=== PATIENT | female | born 1965 | race Caucasian/White ===

== ENCOUNTER → 2017-10-30 11:05 | Outpatient (CLI) | payer MEDICAID, SELFPAY ==
[2017-10-30 14:43] LABS: Alanine Aminotransferase 40 U/L (12-78); Albumin Level 4.1 gm/dL (3.4-5.0); Alkaline Phosphatase 81 U/L (46-116); Anion Gap 17.2 mEq/L (5-15); Bilirubin,Total 0.6 mg/dL (0.2-1.0); Blood Urea Nitrogen 11 mg/dL (7-18); Carbon Dioxide 24 mmol/L (21.0-32.0); Chloride 102 mmol/L (98-107); Chol/HDL Ratio 5.7 (1-3.5); Cholesterol 211 mg/dL (140-200); Creatinine,Serum 0.76 mg/dL (0.55-1.02); Estimated Glomerular Filt Rate 80 ml/min (>60); GFR (African American) 97 ML/MIN (>60); Glucose 84 mg/dL (74-106); HDL Cholesterol 37 mg/dL (29-89); LDL Cholesterol 131 mg/dL (0-130); Sodium 139 mmol/L (136-145); Total Protein,Serum 7.2 gm/dL (6.4-8.2); Triglycerides 217 mg/dL (30-200); VLDL Cholesterol 43 mg/dL (0-40)
[2017-10-30 14:54] LABS: Aspartate Amino Transferase 50 U/L (15-37); Potassium 4.2 mmoL/L (3.5-5.1)
== END ==
PROVIDERS: PCP Nurse Practitioner Family; Visit Provider Internal Medicine Cardiovascular Disease
DX: I77.9 Disorder of arteries and arterioles, unspecified; I70.1 Atherosclerosis of renal artery; Z95.810 Presence of automatic (implantable) cardiac defibrillator; I25.10 Atherosclerotic heart disease of native coronary artery without angina pectoris; I11.9 Hypertensive heart disease without heart failure; E78.4 Other hyperlipidemia; I50.20 Unspecified systolic (congestive) heart failure; Z95.5 Presence of coronary angioplasty implant and graft
CPT/HCPCS: 36415; 80048; 80061; 80076

== ENCOUNTER → 2017-11-25 14:41 | Outpatient (CLI) | payer MEDICAID, SELFPAY ==
--- NOTE | 2017-11-25 14:45 | CA_ITS ---
PROCEDURE: 2-D M-mode and color Doppler study INDICATIONS FOR THE TEST: Chest pain COPD Heart Murmur Tobacco SmokingEX Palpitations Fatigue Syncope Edema HypertensionXDiabetes Mellitus Rheumatic Fever SOB MCCOY Obesity HyperlipidemiaX Family History HD Additional History CAD,PAD,ICD EF 25% 03-12-17 PATIENT INFORMATION HEIGHT: 64 WEIGHT:151 GENDER: Female B/P:148/80 2-D/M-MODE INTERPRETATION: 2-D MEASUREMENTS OBSERVED VALUES IN CMS Right Ventricular Dimension (RVDd) 2.7 Interventricular Septum (Thickness)(IVsd) 1.2 Left Ventricular Internal Dimensions(LVIDd) 5.9 Left Ventricular Posterior Wall (Thickness)(LVPWd) .9 Aortic Root 3.1 Aortic Cusp Separation 2.0 Left Atrial Dimensions (LAD) 3.5 2D 1. Left atrium is mildly enlarged, left ventricle is mildly dilated, there is mild concentric left ventricular hypertrophy, visually estimated ejection fraction approximately 40-45%, there is marked hypokinesis involving the inferior, inferobasal and posterobasal wall. 2. The right atrium and right ventricle are normal size and contractility, there is a catheter noted in the right ventricle which is likely an AICD lead. 3. The aortic valve is minimally thickened and fibrosed. 4. The mitral and tricuspid valve leaflets are minimally thickened. 5. The pulmonic valve is poorly visualized. 6. No significant pericardial effusion noted. DOPPLER INTERROGATION: Doppler interrogation of the aortic, mitral and tricuspid valvular presence of mild mitral and tricuspid regurgitation, tricuspid and jet velocity insufficient for calculation of the right ventricular systolic pressure, grade 1 diastolic dysfunction seen without tissue Doppler evidence of raised left atrial pressure. CONCLUSION: 1. Mildly enlarged left atrium, mildly dilated left ventricle, there is mild concentric left ventricular hypertrophy present, visually estimated ejection fraction of 40-45% with segmental wall motion abnormality described above. Grade 1 diastolic dysfunction seen without tissue Doppler evidence of raised left atrial pressure. 2. Mild mitral and tricuspid regurgitation 3. No significant pericardial effusion noted.
== END ==
PROVIDERS: PCP Nurse Practitioner Family; Visit Provider Internal Medicine Cardiovascular Disease
DX: I77.9 Disorder of arteries and arterioles, unspecified (principal); I70.1 Atherosclerosis of renal artery; Z87.891 Personal history of nicotine dependence; Z95.810 Presence of automatic (implantable) cardiac defibrillator; I25.10 Atherosclerotic heart disease of native coronary artery without angina pectoris; I11.9 Hypertensive heart disease without heart failure; E78.4 Other hyperlipidemia; I50.20 Unspecified systolic (congestive) heart failure; Z95.5 Presence of coronary angioplasty implant and graft; F17.200 Nicotine dependence, unspecified, uncomplicated
CPT/HCPCS: 93306

== ENCOUNTER → 2018-03-16 12:39 | Outpatient (CLI) | payer MEDICAID, SELFPAY ==
[2018-03-16 13:53] LABS: Alanine Aminotransferase 36 U/L (12-78); Albumin Level 3.8 gm/dL (3.4-5.0); Alkaline Phosphatase 79 U/L (46-116); Aspartate Amino Transferase 26 U/L (15-37); Bilirubin,Direct 0.2 mg/dL (0.0-0.2); Bilirubin,Indirect 0.3 mg/dL (0.0-0.9); Bilirubin,Total 0.5 mg/dL (0.2-1.0); Chol/HDL Ratio 3.3 (1-3.5); Cholesterol 114 mg/dL (140-200); HDL Cholesterol 35 mg/dL (29-89); LDL Cholesterol 40 mg/dL (0-130); Total Protein,Serum 6.9 gm/dL (6.4-8.2); Triglycerides 194 mg/dL (30-200); VLDL Cholesterol 39 mg/dL (0-40)
== END ==
PROVIDERS: Visit Provider Internal Medicine
DX: I50.20 Unspecified systolic (congestive) heart failure (principal); I11.9 Hypertensive heart disease without heart failure; E78.5 Hyperlipidemia, unspecified
CPT/HCPCS: 36415; 80061; 80076

== ENCOUNTER 2018-03-21 11:42 | Emergency (ER) | payer MEDICAID, SELFPAY ==
[2018-03-21 11:52] VITALS: BP 133/63; PULSE 70; RESP 18; TEMP 36.9; O2SAT 98; BMI 25.5
[2018-03-21 12:02] LABS: Microscopic, Urine URINE MICROSCOPIC (MICROSCOPIC)
[2018-03-21 12:03] LABS: Appearance,Urine SL CLOUDY (Clear); Blood, Urine 1+ (Negative); Color,Urine YELLOW (Yellow); Glucose,Urine (UA) Negative (Negative); Ketones,Urine Negative (Negative); Leukocyte Esterase,Urine Negative (Negative); Nitrate,Urine Negative (Negative); Protein,Urine 1+ (Negative); Specific Gravity, Urine 1.025 (1.005-1.030)
--- NOTE | 2018-03-21 12:06 | XR_ITS ---
XR abdomen min 2V COMPARISON: CT scan the abdomen 07/24/2016 HISTORY: Abdominal pain TECHNIQUE: KUB and upright abdomen FINDINGS: There is scattered gas and stool throughout the colon. There is no significant small bowel gas. There are no abnormal soft tissue shadows. There are no air-fluid levels and there is no free air. IMPRESSION: Essentially nondiagnostic abdomen
--- NOTE | 2018-03-21 12:06 | XR_ITS ---
XR chest 2V Ordering Physician: David Villeda MD Patient Age: 52 years: Female HISTORY: ITS.REASON: cough and body aches TECHNIQUE: PA and lateral chest COMPARISON :Previous chest film 04/16/2017 FINDINGS There is been no significant interval change. The lungs are clear no active disease. Pacemaker overlying left chest with atrial and ventricular leads intact. The heart is normal in size dung and mediastinal structures satisfactory. IMPRESSION: Stable chest. Nothing definitely acute. Pacemaker again noted & unchanged
--- NOTE | 2018-03-21 12:10 | HMH.EDGENADL ---
ED Disposition Clinical Impression: Vomiting, Viral syndrome, Dehydration, Tick bite, CAD (coronary artery disease), History of implantable cardiac defibrillator (ICD), Hypokalemia Disposition: Home, Self-Care Condition on Discharge: Fair Instructions: DI for Diarrhea and Traveler's Diarrhea -- Adult, DI for Diarrhea and Traveler's Diarrhea -- Child, DI for Nausea -- Adult, DI for Nausea -- Child Additional Instructions: 1- zofran prn. 2- gotrade 16 oz q 4 3- observe uop 4-5 a day. 4- tylenol prn bidaches. 5- follow with Janay Ron tomorrow 03/22/18 at 3 PM as scheduled with proir antonio. Prescriptions: Ondansetron [Zofran 4mg ODT] 4 mg PO Q8HP PRN #6 tab.rapdis PRN Reason: Nausea Referrals: Sarah Ron APRN [Primary Care Provider] - - Critical Care Critical Care Time: No Attestation: On 03/21/18, the high probability of a clinically significant, sudden or life threatening deterioration of the following system(s) required my full and direct attention, intervention and personal management. The time I documented below is in addition to time spent performing reported procedures but includes the following listed in this critical care notation. Medical Decision Making - Reed Inquiry Pt receiving controlled substance: No Reed was queried for this patient: No Vital Signs: 03/21/18 11:52 Temperature 98.5 F Temperature Source Oral Pulse Rate [Right Brachial] 70 Respiratory Rate 18 Blood Pressure [Right Arm] 133/63 Blood Pressure Mean [Right Arm] 86 Blood Pressure Source [Right Arm] Automatic Cuff Blood Pressure Position [Right Arm] Sitting 02 Sat by Pulse Oximetry 98 Oxygen Delivery Method Room Air - Lab Data Lab Results 03/21/18 11:55: Urine Color Yellow, Urine Appearance Sl cloudy, Urine pH 6.0, Ur Specific [place] 1.025, Urine Protein 1+, Urine Glucose (UA) Negative, Urine Ketones Negative, Urine Blood 1+, Urine Nitrate Negative, Urine Bilirubin Negative, Urine Urobilinogen 1.0, Ur Leukocyte Esterase Negative, Urine RBC Occasional, Urine WBC 5-10, Ur Squamous Epith Cells 3-5, Urine Bacteria 2+ 03/21/18 12:28: WBC 6.4, RBC 5.04, Hgb 14.4, Hct 43.6, MCV 86.4, MCH 28.5, MCHC 32.9, RDW 13.0, Plt Count 168, MPV 8.3, Neut % (Auto) 70.0, Lymph % (Auto) 23.6, [place] % (Auto) 3.2, Eos % (Auto) 2.3, Baso % (Auto) 0.9, Neut # (Auto) 4.5, Lymph # (Auto) 1.5, [place] # (Auto) 0.2, Eos # (Auto) 0.2, Baso # (Auto) 0.1 03/21/18 12:50: Sodium 133 L, Potassium 3.1 L, Chloride 96 L, Carbon Dioxide 25, Anion Gap 15.1 H, BUN 13, Creatinine 1.28 H, Estimated Creat Clear 55, Estimated GFR 44 L, Est GFR ( Amer) 53 L, Glucose 98, Calcium 8.9, Total Bilirubin 0.8, AST 38 H, ALT 63, Alkaline Phosphatase 136 H, Troponin I < 0.02, Total Protein 8.4 H, Albumin 4.1, Globulin 4.3 H, Albumin/Globulin Ratio 1.0 L, Lipase 161 03/21/18 12:50: Lactic Acid 1.3 Result diagrams: 03/21/18 12:28 03/21/18 12:50 Orders (Tests/Meds): ED MEDICATIONS Discontinued Medications Generic Name Dose Route Start Last Admin Trade Name Freq PRN Reason Stop Dose Admin Famotidine 20 mg 03/21/18 12:09 03/21/18 13:20 Pepcid 20mg/2ml Vial IV 03/21/18 12:10 20 mg ONCE ONE Administration Sodium Chloride 1,000 mls @ 999 mls/hr 03/21/18 12:15 03/21/18 13:20 Sod Chlor 0.9% 1000ml Bag IV 03/21/18 13:15 999 mls/hr .Q1H1M MARIA E Administration Ondansetron HCl 4 mg 03/21/18 12:09 03/21/18 13:20 Zofran 4mg/2ml Vial IV 03/21/18 12:10 4 mg ONCE ONE Administration Potassium Chloride 40 meq 03/21/18 13:37 Klor-Con 20meq Tablet PO 06/25/18 13:38 ONCE ONE ORDERS Category Date Time Status XR abdomen min 2V Stat Exams 03/21/18 12:06 Taken XR chest 2V Stat Exams 03/21/18 12:06 Taken Lyme, IgM, Early Test/Reflex Stat Lab 03/21/18 12:50 Received Blood Culture Stat Micro 03/21/18 12:50 Re
--- NOTE | 2018-03-21 12:14 | ED_ITS ---
ED Disposition Clinical Impression: Vomiting, Viral syndrome, Dehydration, Tick bite, CAD (coronary artery disease) , History of implantable cardiac defibrillator (ICD), Hypokalemia Disposition: Home, Self-Care Condition on Discharge: Fair Instructions: DI for Diarrhea and Traveler's Diarrhea -- Adult, DI for Diarrhea and Traveler's Diarrhea -- Child, DI for Nausea -- Adult, DI for Nausea -- Child Additional Instructions: 1- zofran prn. 2- gotrade 16 oz q 4 3- observe uop 4-5 a day. 4- tylenol prn bidaches. 5- follow with Janay Ron tomorrow 03/22/18 at 3 PM as scheduled with proir antonio. Prescriptions: Ondansetron [Zofran 4mg ODT] 4 mg PO Q8HP PRN #6 tab.rapdis PRN Reason: Nausea Referrals: Sarah Ron APRN [Primary Care Provider] - - Critical Care Critical Care Time: No Attestation: On 03/21/18, the high probability of a clinically significant, sudden or life threatening deterioration of the following system(s) required my full and direct attention, intervention and personal management. The time I documented below is in addition to time spent performing reported procedures but includes the following listed in this critical care notation. Medical Decision Making - Reed Inquiry Pt receiving controlled substance: No Reed was queried for this patient: No Vital Signs: 03/21/18 11:52 Temperature 98.5 F Temperature Source Oral Pulse Rate [Right Brachial] 70 Respiratory Rate 18 Blood Pressure [Right Arm] 133/63 Blood Pressure Mean [Right Arm] 86 Blood Pressure Source [Right Arm] Automatic Cuff Blood Pressure Position [Right Arm] Sitting 02 Sat by Pulse Oximetry 98 Oxygen Delivery Method Room Air - Lab Data Lab Results 03/21/18 11:55: Urine Color Yellow, Urine Appearance Sl cloudy, Urine pH 6.0, Ur Specific [place] 1.025, Urine Protein 1+, Urine Glucose (UA) Negative, Urine Ketones Negative, Urine Blood 1+, Urine Nitrate Negative, Urine Bilirubin Negative, Urine Urobilinogen 1.0, Ur Leukocyte Esterase Negative, Urine RBC Occasional, Urine WBC 5-10, Ur Squamous Epith Cells 3-5, Urine Bacteria 2+ 03/21/18 12:28: WBC 6.4, RBC 5.04, Hgb 14.4, Hct 43.6, MCV 86.4, MCH 28.5, MCHC 32.9, RDW 13.0, Plt Count 168, MPV 8.3, Neut % (Auto) 70.0, Lymph % (Auto) 23.6 , [place] % (Auto) 3.2, Eos % (Auto) 2.3, Baso % (Auto) 0.9, Neut # (Auto) 4.5, Lymph # (Auto) 1.5, [place] # (Auto) 0.2, Eos # (Auto) 0.2, Baso # (Auto) 0.1 03/21/18 12:50: Sodium 133 L, Potassium 3.1 L, Chloride 96 L, Carbon Dioxide 25 , Anion Gap 15.1 H, BUN 13, Creatinine 1.28 H, Estimated Creat Clear 55, Estimated GFR 44 L, Est GFR ( Amer) 53 L, Glucose 98, Calcium 8.9, Total Bilirubin 0.8, AST 38 H, ALT 63, Alkaline Phosphatase 136 H, Troponin I < 0.02, Total Protein 8.4 H, Albumin 4.1, Globulin 4.3 H, Albumin/Globulin Ratio 1.0 L, Lipase 161 03/21/18 12:50: Lactic Acid 1.3 Result diagrams: 03/21/18 12:28 03/21/18 12:50 Orders (Tests/Meds): ED MEDICATIONS Discontinued Medications Generic Name Dose Route Start Last Admin Trade Name Freq PRN Reason Stop Dose Admin Famotidine 20 mg 03/21/18 12:09 03/21/18 13:20 Pepcid 20mg/2ml Vial IV 03/21/18 12:10 20 mg ONCE ONE Administration Sodium Chloride 1,000 mls @ 999 mls/hr 03/21/18 12:15 03/21/18 13:20 Sod Chlor 0.9% 1000ml Bag IV 03/21/18 13:15 999 mls/hr
[2018-03-21 12:27] LABS: Bilirubin,Urine Negative (Negative)
[2018-03-21 12:29] LABS: Bacteria,Urine 2+ /lpf; RBC,Urine Occasional #/hpf (0-3)
[2018-03-21 12:38] LABS: Basophils # 0.1 K/mm3 (0-0.2); Basophils % 0.9 % (0.1-2.0); Eosinophils # 0.2 K/mm3 (0.0-0.4); Eosinophils % 2.3 % (0.1-12.0); Hematocrit 43.6 % (37.0-47.0); Hemoglobin 14.4 g/dL (12.2-16.2); Lymphocytes # 1.5 K/mm3 (0.7-4.5); Lymphocytes % 23.6 K/mm3 (10-50); Mean Corpuscular HGB Conc 32.9 g/dL (31.8-35.4); Mean Corpuscular Hemoglobin 28.5 pg (27.0-31.2); Mean Corpuscular Volume 86.4 fl (81-99); Mean Platelet Volume 8.3 fl (7.4-10.4); Monocytes # 0.2 K/mm3 (0.1-1.0); Monocytes % 3.2 % (1.7-9.3); Neutrophils # 4.5 K/mm3 (1.8-7.8); Platelet Count 168 K/mm3 (142-424); Red Blood Count 5.04 M/mm3 (4.20-5.40); White Blood Count 6.4 K/mm3 (4.8-10.8)
[2018-03-21 13:24] LABS: Lactic Acid 1.3 mmol/L (0.4-2.0)
[2018-03-21 13:29] LABS: Alanine Aminotransferase 63 U/L (12-78); Albumin Level 4.1 gm/dL (3.4-5.0); Alkaline Phosphatase 136 U/L (46-116); Anion Gap 15.1 mEq/L (5-15); Aspartate Amino Transferase 38 U/L (15-37); Bilirubin,Total 0.8 mg/dL (0.2-1.0); Blood Urea Nitrogen 13 mg/dL (7-18); Calcium 8.9 mg/dL (8.5-10.1); Carbon Dioxide 25 mmol/L (21.0-32.0); Chloride 96 mmol/L (98-107); Creatinine Clearance Estimated 55 mL/min (0-300); Creatinine,Serum 1.28 mg/dL (0.55-1.02); Estimated Glomerular Filt Rate 44 ml/min (>60); GFR (African American) 53 ML/MIN (>60); Globulin 4.3 gm/dl (1.3-3.2); Glucose 98 mg/dL (74-106); Lipase 161 u/L (73-393); Potassium 3.1 mmoL/L (3.5-5.1); Sodium 133 mmol/L (136-145); Total Protein,Serum 8.4 gm/dL (6.4-8.2); Troponin I < 0.02 ng/ml (0.00-0.06)
[2018-03-21 15:32] VITALS: BP 127/70; PULSE 82; RESP 20; TEMP 37.9; O2SAT 95
== END 2018-03-21 15:33 | disposition home or self-care (01) ==
PROVIDERS: Emergency Provider Emergency Medicine; PCP Nurse Practitioner Family
DX: B34.9 Viral infection, unspecified (principal); E86.0 Dehydration; E87.6 Hypokalemia; I25.10 Atherosclerotic heart disease of native coronary artery without angina pectoris; W57.XXXA Bitten or stung by nonvenomous insect and other nonvenomous arthropods, initial encounter; E78.5 Hyperlipidemia, unspecified; J44.9 Chronic obstructive pulmonary disease, unspecified; I73.9 Peripheral vascular disease, unspecified; F17.210 Nicotine dependence, cigarettes, uncomplicated
CPT/HCPCS: 71046; 74019; 80053; 81001; 83605; 83690; 84484; 85025; 86618; 87040; 87086; 93005; 96365; 96375; 99283; 99284; J2405

== ENCOUNTER → 2018-07-25 06:21 | Outpatient (CLI) | payer MEDICAID, SELFPAY ==
--- NOTE | 2018-07-25 06:23 | NM_ITS ---
History and Indications: Coronary artery disease, previous IA, status post AICD and pacemaker, hypertension, tobacco use, family history, chest pain and shortness of breath. Procedure: Patient received a 0.4 mg of intravenous Lexiscan, resting heart rate was 80 bpm resting blood pressure 159/111, with Lexiscan maximum heart rate achieved was 90 bpm which is less than 85% of the maximum predicted heart rate and a blood pressure was 185/115. The scan patient complained of shortness of breath and chest pressure requiring intravenous Aminophyllin to reverse symptoms. Electrocardiogram: Resting electrocardiogram showed sinus rhythm intraventricular conduction delay nonspecific ST-T changes, with Lexiscan less than 1.[address] segment depression noted from the baseline EKG the EKG portion of the Lexiscan Myoview is nondiagnostic. Cardiac stress and resting SPECT images: Cardiac stress and rest SPECT images were obtained using technetium 99 Myoview 30.4 mCi at rest and 9.8 mCi at rest gated SPECT further analysis of segmental wall motion and calculation of the ejection fraction also done. Cardiac stress and rest SPECT images show a fixed defect involving the inferior and posterobasal wall, most naun-infarct ischemia. Computer derived ejection fraction is 25%, the left ventricle, there is marked hypokinesis involving the inferior and posterobasal wall. Right ventricle is normal size and contractility. Conclusion: 1. The EKG portion of the Lexiscan Myoview is nondiagnostic. 2. Scintigraphic evidence of myocardial scarring involving the inferior and posterobasal wall, with minimal naun-infarct. Computer derived ejection fraction 25% with multiple segmental wall motion abnormality described above, right ventricle is normal size and contractility. 3. Abnormal Lexiscan Myoview study.
--- NOTE | 2018-07-25 07:16 | HMH.ITSHM ---
Current Home Medications as stated by this patient Ashley Ding or field representative/health education. []METOPROLOL RENEXA REPATHA LOSARTAN NITRO ASA
== END ==
PROVIDERS: PCP Internal Medicine Adolescent Medicine; Visit Provider Internal Medicine
DX: E78.5 Hyperlipidemia, unspecified (principal); I11.9 Hypertensive heart disease without heart failure; I20.9 Angina pectoris, unspecified; I25.10 Atherosclerotic heart disease of native coronary artery without angina pectoris; I50.20 Unspecified systolic (congestive) heart failure; I77.9 Disorder of arteries and arterioles, unspecified; Z95.810 Presence of automatic (implantable) cardiac defibrillator
CPT/HCPCS: 78452; 93017; A9502; J2785

== ENCOUNTER → 2018-08-05 10:05 | Outpatient (CLI) | payer MEDICAID, SELFPAY ==
[2018-08-05 12:39] LABS: Anion Gap 16.2 mEq/L (5-15); Blood Urea Nitrogen 9 mg/dL (7-18); Calcium 9.1 mg/dL (8.5-10.1); Carbon Dioxide 26 mmol/L (21.0-32.0); Chloride 106 mmol/L (98-107); Creatinine,Serum 0.76 mg/dL (0.55-1.02); Estimated Glomerular Filt Rate 80 ml/min (>60); GFR (African American) 96 ML/MIN (>60); Glucose 87 mg/dL (74-106); Potassium 4.2 mmoL/L (3.5-5.1); Sodium 144 mmol/L (136-145)
== END ==
PROVIDERS: PCP Internal Medicine Adolescent Medicine; Visit Provider Internal Medicine Cardiovascular Disease
DX: M79.604 Pain in right leg (principal); T14.8XXA Other injury of unspecified body region, initial encounter; Z98.890 Other specified postprocedural states; E78.5 Hyperlipidemia, unspecified; F17.200 Nicotine dependence, unspecified, uncomplicated; I11.9 Hypertensive heart disease without heart failure; I25.10 Atherosclerotic heart disease of native coronary artery without angina pectoris; I50.20 Unspecified systolic (congestive) heart failure; I70.1 Atherosclerosis of renal artery; I77.9 Disorder of arteries and arterioles, unspecified; Z87.891 Personal history of nicotine dependence; Z95.5 Presence of coronary angioplasty implant and graft; Z95.810 Presence of automatic (implantable) cardiac defibrillator
CPT/HCPCS: 36415; 80048; 93926

== ENCOUNTER → 2018-11-15 07:53 | Outpatient (CLI) | payer MEDICAID, SELFPAY ==
--- NOTE | 2018-11-15 07:55 | AS_ITS ---
Renal Arterial Duplex Indications: 405.91 Unspecified renovascular hypertension. Left renal artery stent (2018) IMPRESSIONS 1. Greater than 60% stenosis involving the right renal artery 2. The left renal artery appears normal. Complete renal arterial duplex. Duplex scan and Doppler flow study including spectral analysis, color and resnedez scale imaging. Height: Height: 162.6cm. Height: 64in. Weight: Weight: 68kg. Weight: 149.7lb. Body mass index: BMI: 25.7kg/m^2. Body surface area: BSA: 1.77m^2. Location: Vascular laboratory. Patient status: Outpatient. Findings: Cyst in the left mid pole cortex. Dimensions: 3cm (L). Tables: Arterial flow: + +--------+--------+---------+ Location V sys V ed Resistive + +--------+--------+---------+ Right renal - proximal 210cm/s 34.6cm/s --------- + +--------+--------+---------+ Right renal - mid 192cm/s 48.2cm/s --------- + +--------+--------+---------+ Right renal - distal 48.3cm/s 18.6cm/s --------- + +--------+--------+---------+ Left renal - proximal 123cm/s 31.8cm/s --------- + +--------+--------+---------+ Left renal - mid 65.5cm/s 20.3cm/s --------- + +--------+--------+---------+ Left renal - distal 79.4cm/s 30.4cm/s --------- + +--------+--------+---------+ Right renal-origin 247cm/s 48.9cm/s 0.80 + +--------+--------+---------+ Left renal -origin 107cm/s 22.9cm/s 0.79 + +--------+--------+---------+ Renal anatomy: + +------+-----+ Left Right + +------+-----+ Long axis 11.2cm 11cm + +------+-----+ Short axis 6.6cm 5.2cm + +------+-----+ Cortical thickness 1.5cm 1.3cm + +------+-----+ Velocity ratios: + +-----+ V sys + +-----+ Right renal/aortic 3.9 + +-----+ Left renal/aortic 1.9 + +-----+ (Report amended ) Electronically signed by: Khnah Cr [id number]
[2018-11-15 10:22] LABS: Anion Gap 14.1 mEq/L (5-15); Blood Urea Nitrogen 12 mg/dL (7-18); Calcium 9.2 mg/dL (8.5-10.1); Carbon Dioxide 28 mmol/L (21.0-32.0); Chloride 106 mmol/L (98-107); Creatinine,Serum 0.98 mg/dL (0.55-1.02); Estimated Glomerular Filt Rate 59 ml/min (>60); GFR (African American) 72 ML/MIN (>60); Glucose 92 mg/dL (74-106); Potassium 4.1 mmoL/L (3.5-5.1); Sodium 144 mmol/L (136-145)
== END ==
PROVIDERS: PCP Internal Medicine Adolescent Medicine; Visit Provider Internal Medicine Cardiovascular Disease
DX: I25.10 Atherosclerotic heart disease of native coronary artery without angina pectoris (principal); I50.20 Unspecified systolic (congestive) heart failure; I70.1 Atherosclerosis of renal artery; I77.9 Disorder of arteries and arterioles, unspecified; E78.5 Hyperlipidemia, unspecified; F17.200 Nicotine dependence, unspecified, uncomplicated; I11.9 Hypertensive heart disease without heart failure; Z87.891 Personal history of nicotine dependence; Z95.5 Presence of coronary angioplasty implant and graft; Z95.810 Presence of automatic (implantable) cardiac defibrillator
CPT/HCPCS: 36415; 80048; 93976

== ENCOUNTER → 2019-06-16 09:20 | Outpatient (CLI) | payer MEDICAID, SELFPAY ==
--- NOTE | 2019-06-16 09:21 | CA_ITS ---
APPROVED REPORT Country Printer: BHAVESH Study Quality: Good Indications: malignant htn Risk Factors Hypertension Surgery/Intervention Renal Artery Stent : Renal Artery Doppler Origin (R) 204.0/70.9 cm/sec Proximal (R) 136.0/50.7 cm/sec Mid (R) 106.0/32.0 cm/sec Distal (R) 117.0/35.7 cm/sec Renal Aorta Ratio (R) 3.80 Segmental A. (R) 35.3/11.1 cm/sec RI: 0.68 Segmental A. Sup (R) 42.9/9.7 cm/sec Segmental A. Mid (R) 36.9/12.1 cm/sec Segmental A. Inf (R) 26.0/11.5 cm/sec Origin (L) 110.0/30.6 cm/sec Proximal (L) 106.0/33.9 cm/sec Mid (L) 113.0/35.1 cm/sec Distal (L) 103.0/29.7 cm/sec Renal Aorta Ratio (L) 2.09 Segmental A. (L) 47.7/15.5 cm/sec RI: 0.67 Segmental A. Sup (L) 51.2/17.8 cm/sec Segmental A. Mid (L) 53.6/18.1 cm/sec Segmental A. Inf (L) 38.2/10.6 cm/sec Renal Measurements Kidney Size (R) 11.2x6.1 cm Cortical Thickness (R) 1.2 cm Kidney Size (L) 9.4x7.5 cm Cortical Thickness (L) 1.4 cm Aortic Doppler Velocity Waveform Sup Thanh Ao 54.0 cm/sec Conclusion Study suggests greater than 60% stenosis involving the right renal artery unchanged from 11/15/18 study. Consider CTA to confirm. The left renal artery appears normal. 3.5 cm cyst seen mid pole of left kidney. Electronically signed by : Khanh Cr MD 06/16/2019 18:26:43
== END ==
PROVIDERS: PCP Nurse Practitioner Family; Visit Provider Internal Medicine Cardiovascular Disease
DX: I11.9 Hypertensive heart disease without heart failure (principal); E78.5 Hyperlipidemia, unspecified; I25.10 Atherosclerotic heart disease of native coronary artery without angina pectoris; I50.20 Unspecified systolic (congestive) heart failure; I70.1 Atherosclerosis of renal artery; Z95.5 Presence of coronary angioplasty implant and graft; Z95.810 Presence of automatic (implantable) cardiac defibrillator
CPT/HCPCS: 93976

== ENCOUNTER → 2019-11-27 11:05 | Outpatient (CLI) | payer OTHER, SELFPAY ==
[2019-11-27 11:36] LABS: Basophils # 0.1 K/mm3 (0-0.2); Basophils % 0.7 % (0.1-2.0); Eosinophils # 0.1 K/mm3 (0.0-0.4); Eosinophils % 1.7 % (0.1-12.0); Hematocrit 45.2 % (37.0-47.0); Lymphocytes # 1.9 K/mm3 (0.7-4.5); Lymphocytes % 25.7 % (10-50); Mean Corpuscular HGB Conc 33.2 g/dL (31.8-35.4); Mean Corpuscular Hemoglobin 29.9 pg (27.0-31.2); Mean Corpuscular Volume 90.3 fl (81-99); Monocytes # 0.4 K/mm3 (0.1-1.0); Monocytes % 5.1 % (1.7-9.3); Neutrophils % 66.7 % (37.0-80.0); Platelet Count 263 K/mm3 (142-424); Red Blood Count 5.01 M/mm3 (4.20-5.40); Red Cell Distribution Width 12.8 % (11.5-17.5); White Blood Count 7.5 K/mm3 (4.8-10.8)
[2019-11-27 12:21] LABS: Blood Urea Nitrogen 12 mg/dl (7-17); Calcium 10.2 mg/dl (8.4-10.2); Carbon Dioxide 27 mmol/L (22.0-30.0); Chloride 101 mmol/L (98-107); Estimated Glomerular Filt Rate 75 ml/min (>60); GFR (African American) 90 ML/MIN (>60); Glucose 84 mg/dl (74-100); Sodium 140 mmol/L (136-145)
[2019-11-27 12:41] LABS: Troponin I < 0.01 ng/ml (0.00-0.034)
[2019-11-28 10:51] LABS: Alanine Aminotransferase 16 U/L (12-78); Alkaline Phosphatase 74 U/L (38-126); Aspartate Amino Transferase 23 U/L (14-36); Bilirubin,Indirect 0.4 mg/dL (0.0-0.9); Bilirubin,Total 0.4 mg/dl (0.2-1.3); Bilirubin,Unconjugated 0.5 mg/dL (0.0-1.1); Cholesterol 226 mg/dl (140-200)
[2019-11-28 10:52] LABS: Albumin Level 4.4 g/dl (3.5-5.0); Chol/HDL Ratio 5.9 (1-3.5); HDL Cholesterol 38 mg/dl (40-60); Total Protein,Serum 7.2 g/dl (6.3-8.2); Triglycerides 421 mg/dl (30-150)
[2019-11-28 11:03] LABS: Direct LDL Cholesterol 124.95 mg/dL (100-129)
== END ==
PROVIDERS: Internal Medicine Cardiovascular Disease; Visit Provider Urology
DX: E78.2 Mixed hyperlipidemia (principal); I10 Essential (primary) hypertension; I11.0 Hypertensive heart disease with heart failure; I25.10 Atherosclerotic heart disease of native coronary artery without angina pectoris; I50.22 Chronic systolic (congestive) heart failure; I70.1 Atherosclerosis of renal artery; I77.9 Disorder of arteries and arterioles, unspecified; Z95.810 Presence of automatic (implantable) cardiac defibrillator; E78.5 Hyperlipidemia, unspecified; I11.9 Hypertensive heart disease without heart failure; I50.20 Unspecified systolic (congestive) heart failure; Z95.5 Presence of coronary angioplasty implant and graft
CPT/HCPCS: 36415; 80048; 80061; 80076; 84484; 85025

== ENCOUNTER → 2019-12-06 07:32 | Outpatient (CLI) | payer OTHER, SELFPAY ==
--- NOTE | 2019-12-06 07:35 | CA_ITS ---
APPROVED REPORT Exam: Pharmacologic Technologist: BRIDGETT KAN, Ht: 5 ft 4 in Wt: 139 lbs BSA: 1.68 m2 HR: 70 bpm BP: 180/108 mmHg Rhythm: Pacemaker Indications: CP, SOA Medical History Medications: Metoprolol,,,,, Asa,,,,, Losartan,,,,, Renexa,,,,, Nitro,,,,, Repatha,,,,, Stress Test Details Test: LEXISCAN Reversal agent Aminophyline 100.0 mg, given intravenously for other. HR Resting HR: 71 bpm Max Heart Rate (APMHR): 166 bpm Max HR Achieved: 95 bpm Target HR (85% APMHR): 141 bpm % of APMHR: 57 Recovery HR: 70 bpm BP Resting BP: 180/108 mmHg Max BP: 205/120 mmHg Recovery BP: 196.0/111.0 mmHg ECG Clinical Reason for Termination: Completed protocol Exercise duration: 04:06 min Highest Stage Achieved: Stress ECG Conclusion Symptoms - SOA, Malaise, hot, flushed,aching especially in legs. Occassional PVC No significant ST-T wave changes. Conclusion: Unremarkable Lexiscan stree. Myoview images reported separately. Test Summary REST 04:37 . . 71 . 180/108 . . Stage 1 01:00 . . 70 . . . . Stage 2 01:00 . . 90 . 203/103 . . Stage 3 01:00 . . 95 . 202/120 . . Stage 4 01:00 . . 91 . 196/122 . . Stage 4 01:06 . . 90 . 196/122 . Stop exercise at 04:06 RECOVERY 01:00 . . 72 . 202/112 . . RECOVERY 02:00 . . 70 . 202/112 . . RECOVERY 03:00 . . 69 . 202/112 . . RECOVERY 04:00 . . 70 . 205/120 . . RECOVERY 05:00 . . 70 . 201/115 . . RECOVERY 06:00 . . 70 . 196/111 . . RECOVERY 06:12 . . 72 . 196/111 . . Electronically signed by : Cristi Cleaning, 12/07/2019 12:03:38
--- NOTE | 2019-12-06 07:35 | NM_ITS ---
APPROVED REPORT Exam: Nuclear Stress Test Indication: Chest pain, HTN, CAD, Hx of [place], Pacemaker, High cholesterol, Tobacco use, Family history Patient Location: Outpatient Stress Tech: Radha Pineda NM Tech:Tracey Hidalgo, ARRT, RT (R)(N) Ht: 5 ft 4 in Wt: 139 lbs Bra Size: 36C HR: 70 bpm BP: 180/108 mmHg BSA: 1.68 m2 BMI: 23.8 History: Chest pain, HTN, CAD, Hx of [place], Pacemaker, High cholesterol, Tobacco use, Family history Procedure: Patient received a 0.4 mg of intravenous Lexiscan, resting heart rate 70 bpm, resting blood pressure 180/108 mmHg, with Lexiscan maximum heart rate achived was 95 bpm which is % of the maximum predicted heart rate and blood pressure was 196/122 mmHg. With Lexiscan, patient denied any complaint of chest pain. Cardiac Stress and Resting SPECT Images: Cardiac Stress and Resting SPECT images were obtained using technetium 99m Myoview 30.5 mCi stress and 10.28 mCi at rest. EF is very low at 18% with global hypokinesia with apical akinesia Fixed defects are present in the anterior and inferior wall towards the apex with a large fixed defect in the inferior wall towards the base of the heart consistent with areas of infarcts No reversible defects Conclusion: EF is very low at 18% with global hypokinesia with apical akinesia Fixed defects are present in the anterior and inferior wall towards the apex with a large fixed defect in the inferior wall towards the base of the heart consistent with areas of infarcts No reversible defects Electronically signed by : Khanh Cr MD 12/06/2019 17:07:08
--- NOTE | 2019-12-06 08:23 | HMH.ITSHM ---
Current Home Medications as stated by this patient Ashley Ding or financial representative. []PANTOPRAZOLE MAGNESIUM HCTZ CLOPIDOGREL CLONIDINE RANOLAZINE ZOFRAN METOPROLOL ISOSORBIDE MONONITRATE
== END ==
PROVIDERS: PCP Physician Assistant; Visit Provider Urology
DX: I11.9 Hypertensive heart disease without heart failure (principal); I25.10 Atherosclerotic heart disease of native coronary artery without angina pectoris; I50.20 Unspecified systolic (congestive) heart failure; I70.1 Atherosclerosis of renal artery; I77.9 Disorder of arteries and arterioles, unspecified; E78.5 Hyperlipidemia, unspecified; Z95.810 Presence of automatic (implantable) cardiac defibrillator
CPT/HCPCS: 78452; 93017; 93306; A9502; J2785

== ENCOUNTER → 2020-01-16 12:23 | Outpatient (CLI) | payer OTHER, SELFPAY ==
[2020-01-16 14:23] LABS: Anion Gap 13.3 mEq/L (5-15); Blood Urea Nitrogen 9 mg/dl (7-17); Carbon Dioxide 26 mmol/L (22.0-30.0); Chloride 104 mmol/L (98-107); Estimated Glomerular Filt Rate 87 ml/min (>60); GFR (African American) 106 ML/MIN (>60); Glucose 88 mg/dl (74-100); Potassium 4.3 mmoL/L (3.5-5.1); Sodium 139 mmol/L (136-145)
== END ==
PROVIDERS: Urology; Visit Provider Nurse Practitioner Family
DX: I20.9 Angina pectoris, unspecified (principal); I50.20 Unspecified systolic (congestive) heart failure; E78.5 Hyperlipidemia, unspecified; F17.200 Nicotine dependence, unspecified, uncomplicated; Z95.810 Presence of automatic (implantable) cardiac defibrillator
CPT/HCPCS: 36415; 80048

== ENCOUNTER → 2020-02-23 14:58 | Outpatient (CLI) | payer OTHER, SELFPAY ==
--- NOTE | 2020-02-23 15:02 | XR_ITS ---
PROCEDURE: XR FOOT RT MIN 3V CLINICAL INDICATION: FOOT INFECTION Ulceration on the tip of the 2nd toe COMPARISON: No exams were available for comparison FINDINGS: No fracture or dislocation. No lytic or blastic change. There is normal mineralization. The joint spaces are well-preserved. No significant degenerative/arthritic changes. No erosive changes evident. Other findings:No soft tissue gas or radiopaque foreign body IMPRESSION: No acute findings. Dictated by: Khanh rC MD 02/23/2020 18:39 Electronically signed by Khanh Cr MD in [place] 02/23/2020 18:39
== END ==
PROVIDERS: PCP Internal Medicine Adolescent Medicine; Visit Provider Internal Medicine Adolescent Medicine
DX: L08.9 Local infection of the skin and subcutaneous tissue, unspecified (principal); M79.671 Pain in right foot
CPT/HCPCS: 73630

== ENCOUNTER → 2020-02-26 09:54 | Outpatient (CLI) | payer OTHER, SELFPAY | PROVIDERS: Visit Provider Podiatrist | DX: L97.512 Non-pressure chronic ulcer of other part of right foot with fat layer exposed (principal) | CPT/HCPCS: 87070; 87077; 87186; 87205 ==

== ENCOUNTER → 2020-02-27 15:39 | Outpatient (CLI) | payer OTHER, SELFPAY ==
[2020-02-27 16:24] LABS: Basophils % 0.6 % (0.1-2.0); Eosinophils # 0.2 K/mm3 (0.0-0.4); Eosinophils % 2.1 % (0.1-12.0); Hematocrit 41.3 % (37.0-47.0); Hemoglobin 14.4 g/dL (12.2-16.2); Lymphocytes # 2.2 K/mm3 (0.7-4.5); Lymphocytes % 29.9 % (10-50); Mean Corpuscular HGB Conc 34.8 g/dL (31.8-35.4); Mean Corpuscular Hemoglobin 30.6 pg (27.0-31.2); Mean Corpuscular Volume 87.9 fl (81-99); Mean Platelet Volume 7.5 fl (7.4-10.4); Monocytes # 0.4 K/mm3 (0.1-1.0); Monocytes % 5.4 % (1.7-9.3); Neutrophils # 4.6 K/mm3 (1.8-7.8); Neutrophils % 62.1 % (37.0-80.0); Platelet Count 255 K/mm3 (142-424); Red Cell Distribution Width 13.2 % (11.5-17.5); White Blood Count 7.4 K/mm3 (4.8-10.8)
[2020-02-27 16:58] LABS: Chloride 105 mmol/L (98-107); Potassium 4.2 mmoL/L (3.5-5.1); Sodium 139 mmol/L (136-145)
[2020-02-27 17:01] LABS: Alanine Aminotransferase 21 U/L (12-78); Albumin Level 4.3 g/dl (3.5-5.0); Albumin/Globulin Ratio 1.5 (1.1-1.8); Alkaline Phosphatase 99 U/L (38-126); Anion Gap 14.2 mEq/L (5-15); Aspartate Amino Transferase 26 U/L (14-36); Bilirubin,Total 0.6 mg/dl (0.2-1.3); Blood Urea Nitrogen 10 mg/dl (7-17); Carbon Dioxide 24 mmol/L (22.0-30.0); Estimated Glomerular Filt Rate 87 ml/min (>60); GFR (African American) 106 ML/MIN (>60); Globulin 2.8 g/dL (1.3-3.2); Total Protein,Serum 7.1 g/dl (6.3-8.2)
[2020-02-27 17:02] LABS: Calcium 9.2 mg/dl (8.4-10.2); Glucose 87 mg/dl (74-100)
[2020-02-27 17:07] LABS: C-Reactive Protein 4.7 mg/L (0-4)
[2020-02-27 19:32] LABS: Erythrocyte Sedimentation Rate 19 mm/hr (0-30)
== END ==
PROVIDERS: Visit Provider Podiatrist
DX: L97.519 Non-pressure chronic ulcer of other part of right foot with unspecified severity (principal)
CPT/HCPCS: 36415; 80053; 85025; 85651; 86140

== ENCOUNTER → 2020-03-04 10:40 | Outpatient (CLI) | payer OTHER, SELFPAY ==
--- NOTE | 2020-03-04 10:49 | US_ITS ---
APPROVED REPORT Exam Type: Lower Extremity Segmental Pressures Intelligence Clerk: Monica Harris RDCS Indications Claudication: PAD Current Smoker CAD Risk Factors Current Smoker Pressures/Indices Right Indices Left Indices Brachial 164.00 mmHg Brachial 154.00 mmHg Low Thigh 132.00 mmHg 0.80 Low Thigh 151.00 mmHg 0.92 Calf 135.00 mmHg 0.82 Calf 146.00 mmHg 0.89 Ankle(PT) 109.00 mmHg 0.66 Ankle(PT) 135.00 mmHg 0.82 Ankle(DP) 83.00 mmHg 0.51 Ankle(DP) 84.00 mmHg 0.51 Digit 31.00 mmHg 0.19 Digit 16.00 mmHg 0.10 Findings R RODOLFO .7 L RODOLFO .8 R TBI .2 L TBI .1 WAVEFORMS NORMAL DIMINISHED PULSES BILATERALLY Conclusion Moderate arterial disease Electronically signed by : Khanh Cr MD 03/04/2020 19:35:34
== END ==
PROVIDERS: PCP Internal Medicine Adolescent Medicine; Visit Provider Internal Medicine Adolescent Medicine
DX: L08.9 Local infection of the skin and subcutaneous tissue, unspecified (principal); L03.115 Cellulitis of right lower limb; L03.116 Cellulitis of left lower limb
CPT/HCPCS: 93923

== ENCOUNTER → 2020-03-18 14:46 | Outpatient (CLI) | payer OTHER, SELFPAY ==
[2020-03-18 15:48] LABS: Alanine Aminotransferase 18 U/L (12-78); Albumin Level 4.2 g/dl (3.5-5.0); Alkaline Phosphatase 83 U/L (38-126); Aspartate Amino Transferase 26 U/L (14-36); Bilirubin,Direct 0.4 mg/dl (0.0-0.4); Bilirubin,Indirect 0.5 mg/dL (0.0-0.9); Bilirubin,Total 0.9 mg/dl (0.2-1.3); Bilirubin,Unconjugated 0.6 mg/dL (0.0-1.1); Cholesterol 198 mg/dl (140-200); Total Protein,Serum 6.9 g/dl (6.3-8.2)
[2020-03-18 15:49] LABS: Triglycerides 422 mg/dl (30-150)
[2020-03-18 16:00] LABS: Direct LDL Cholesterol 92.91 mg/dL (100-129)
[2020-03-18 21:41] LABS: Chol/HDL Ratio 4.5 (1-3.5); HDL Cholesterol 44 mg/dl (40-60)
== END ==
PROVIDERS: Visit Provider Urology
DX: I11.9 Hypertensive heart disease without heart failure (principal); I25.10 Atherosclerotic heart disease of native coronary artery without angina pectoris; I77.9 Disorder of arteries and arterioles, unspecified; I50.20 Unspecified systolic (congestive) heart failure; I70.1 Atherosclerosis of renal artery; Z95.5 Presence of coronary angioplasty implant and graft
CPT/HCPCS: 36415; 80061; 80076

== ENCOUNTER 2020-04-16 08:46 | Day surgery (SDC) | payer OTHER, SELFPAY ==
[2020-04-16] VITALS (18 sets, daily range): BP systolic 119–168; BP diastolic 80–111; PULSE 70; RESP 16; TEMP 36.8; O2SAT 91–100; BMI 25.2
--- NOTE | 2020-04-16 09:00 | IR_ITS ---
APPROVED REPORT Patient Location: Outpatient PROCEDURES Catheter placement in the abdominal aorta Abdominal aortography Repositioning of the catheter in the abdominal aorta Bilateral iliofemoral runoff INDICATION Abnormal ABIs, [place] class III claudication Informed consent was obtained prior to the procedure. COMPLICATIONS none Estimated Blood Loss: less than 10 mls TECHNIQUE 1% lidocaine used anesthetize the right groin the right femoral artery was accessed via the Salinger technique and a 5 [place] sheath was placed in the right femoral artery. The pigtail catheter was advanced and abdominal aortography was performed. The catheter was then repositioned and bilateral iliofemoral runoff was performed. At the end of the procedure the apparatus was removed the patient was transferred to the postop holding area stable condition for sheath removal ANGIOGRAPHIC RESULTS The suprarenal abdominal aorta is normal. The left renal artery is singular and has a stent in the ostial proximal segment which is widely patent free of in-stent restenosis. The right renal artery singular normal. The infrarenal abdominal aorta is mild to moderately atheromatous with diffuse 30% [id number] stenosis. The right common iliac artery has a stent in the ostial segment with a 50% in-stent restenotic lesion. The right internal iliac artery is ostially occluded while the external iliac artery is widely patent. The right common femoral artery is normal. The right profunda femoris artery is normal. The right superficial femoral artery has mid vessel 40 to 50% stenosis which transitions into a large popliteal artery which has a mid vessel 40% stenosis. Distally the posterior tibialis artery is occluded however the anterior tibialis artery and the peroneal artery are patent into the right foot The left common iliac artery has an ostial 30% stenosis while the left internal iliac artery is occluded. The left external iliac artery is widely patent. The left common femoral artery is patent. The left profunda femoris artery is widely patent. The left superficial femoral artery has mid vessel 40 to 50% stenosis. The left popliteal artery is widely patent with mild atheromatous 20% plaque. There appears to be three-vessel runoff below the knee on the left side however due to motion artifact the full angiogram cannot be visualized in the distal two thirds of the left calf IMPRESSION Peripheral artery disease as described above PLAN 1. Medical management 2. Treatment for restless leg syndrome using Requip 1 to 2 mg nightly 3. Risk factor modification Electronically signed by : Cristi Cleaning, 04/16/2020 12:28:43
[2020-04-16 09:34] LABS: Anion Gap 11.7 mEq/L (5-15); Blood Urea Nitrogen 9 mg/dl (7-17); Calcium 9.4 mg/dl (8.4-10.2); Carbon Dioxide 27 mmol/L (22.0-30.0); Chloride 106 mmol/L (98-107); Creatinine Clearance Estimated 85 mL/min (50-200); Estimated Glomerular Filt Rate 75 ml/min (>60); GFR (African American) 90 ML/MIN (>60); Glucose 99 mg/dl (74-100); Potassium 3.7 mmoL/L (3.5-5.1); Sodium 141 mmol/L (136-145)
[2020-04-16 09:39] LABS: Basophils % 0.5 % (0.1-2.0); Eosinophils # 0.1 K/mm3 (0.0-0.4); Hematocrit 41.1 % (37.0-47.0); Hemoglobin 14.2 g/dL (12.2-16.2); Lymphocytes # 2.1 K/mm3 (0.7-4.5); Lymphocytes % 29.1 % (10-50); Mean Corpuscular HGB Conc 34.5 g/dL (31.8-35.4); Mean Corpuscular Hemoglobin 31.5 pg (27.0-31.2); Mean Corpuscular Volume 91.5 fl (81-99); Mean Platelet Volume 7.5 fl (7.4-10.4); Monocytes # 0.3 K/mm3 (0.1-1.0); Monocytes % 4.2 % (1.7-9.3); Neutrophils # 4.6 K/mm3 (1.8-7.8); Neutrophils % 64.2 % (37.0-80.0); Platelet Count 241 K/mm3 (142-424); Red Blood Count 4.49 M/mm3 (4.20-5.40); Red Cell Distribution Width 13.4 % (11.5-17.5); White Blood Count 7.1 K/mm3 (4.8-10.8)
== END 2020-04-16 14:12 | disposition home or self-care (01) ==
LOC: CATHLAB 08:48
PROVIDERS: PCP Internal Medicine Adolescent Medicine; Visit Provider Internal Medicine
DX: I25.118 Atherosclerotic heart disease of native coronary artery with other forms of angina pectoris (principal); I70.203 Unspecified atherosclerosis of native arteries of extremities, bilateral legs; E78.2 Mixed hyperlipidemia; I11.0 Hypertensive heart disease with heart failure; I70.1 Atherosclerosis of renal artery; I77.9 Disorder of arteries and arterioles, unspecified; R06.00 Dyspnea, unspecified; Z95.5 Presence of coronary angioplasty implant and graft; Z95.810 Presence of automatic (implantable) cardiac defibrillator; Z79.82 Long term (current) use of aspirin; G25.81 Restless legs syndrome; I50.22 Chronic systolic (congestive) heart failure; I77.1 Stricture of artery; Z72.0 Tobacco use
CPT/HCPCS: 36247; 75716; 80048; 85025; 99152; C1725; C1769; C1894; J1644; Q9966

== ENCOUNTER → 2020-09-18 10:45 | Outpatient (CLI) | payer OTHER, SELFPAY ==
[2020-09-18 12:13] LABS: Basophils % 0.7 % (0.1-2.0); Eosinophils # 0.1 K/mm3 (0.0-0.4); Eosinophils % 2.8 % (0.1-12.0); Hematocrit 44.9 % (37.0-47.0); Hemoglobin 14.5 g/dL (12.2-16.2); Lymphocytes # 1.5 K/mm3 (0.7-4.5); Lymphocytes % 30.5 % (10-50); Mean Corpuscular HGB Conc 32.2 g/dL (31.8-35.4); Mean Corpuscular Hemoglobin 29.5 pg (27.0-31.2); Mean Corpuscular Volume 91.3 fl (81-99); Mean Platelet Volume 8.3 fl (7.4-10.4); Monocytes # 0.3 K/mm3 (0.1-1.0); Monocytes % 5.9 % (1.7-9.3); Neutrophils % 60.1 % (37.0-80.0); Platelet Count 283 K/mm3 (142-424); Red Blood Count 4.91 M/mm3 (4.20-5.40); Red Cell Distribution Width 13.7 % (11.5-17.5); White Blood Count 4.9 K/mm3 (4.8-10.8)
[2020-09-18 12:39] LABS: Chloride 106 mmol/L (98-107); Potassium 4.2 mmoL/L (3.5-5.1); Sodium 137 mmol/L (136-145)
[2020-09-18 12:42] LABS: Alanine Aminotransferase 19 U/L (12-78); Albumin Level 4.2 g/dl (3.5-5.0); Albumin/Globulin Ratio 1.4 (1.1-1.8); Alkaline Phosphatase 72 U/L (38-126); Anion Gap 12.2 mEq/L (5-15); Aspartate Amino Transferase 25 U/L (14-36); Bilirubin,Total 0.7 mg/dl (0.2-1.3); Blood Urea Nitrogen 11 mg/dl (7-17); Carbon Dioxide 23 mmol/L (22.0-30.0); Estimated Glomerular Filt Rate 74 ml/min (>60); GFR (African American) 90 ML/MIN (>60); Total Protein,Serum 7.2 g/dl (6.3-8.2)
[2020-09-18 12:43] LABS: Calcium 9.6 mg/dl (8.4-10.2); Glucose 104 mg/dl (74-100)
[2020-09-18 12:47] LABS: C-Reactive Protein 1.9 mg/L (0-4)
[2020-09-18 13:52] LABS: Hemoglobin A1C 5.5 % (4.0-6.0)
[2020-09-18 15:11] LABS: Erythrocyte Sedimentation Rate 11 mm/hr (0-30)
== END ==
PROVIDERS: Visit Provider Podiatrist
DX: L97.519 Non-pressure chronic ulcer of other part of right foot with unspecified severity (principal)
CPT/HCPCS: 36415; 80053; 83036; 85025; 85651; 86140

== ENCOUNTER → 2021-08-09 14:01 | Outpatient (CLI) | payer OTHER, SELFPAY ==
--- NOTE | 2021-08-10 09:47 | PC.NURSE ---
PATIENT NOTIFIED OF POSITIVE COVID TEST AT THIS TIME
== END ==
PROVIDERS: PCP Internal Medicine Adolescent Medicine; Visit Provider Nurse Practitioner Family
DX: U07.1 COVID-19 (principal)
CPT/HCPCS: C9803; U0003; U0005

== ENCOUNTER → 2021-08-25 07:40 | Outpatient (CLI) | payer OTHER, SELFPAY ==
--- NOTE | 2021-08-25 07:49 | CA_ITS ---
APPROVED REPORT Covering And Lining Supervisor: Shira Griffiths RVT Study Quality: Good Indications: HTN Risk Factors Hypertension Smoking Surgery/Intervention Renal Artery Stent : LT RENAL STENT Renal Artery Doppler Origin (R) 301.6/ cm/sec Proximal (R) 288.1/ cm/sec Mid (R) 429.8/ cm/sec Distal (R) 142.2/ cm/sec Renal Aorta Ratio (R) 5.18 Segmental A. (R) 39.6/15.6 cm/sec RI: 0.60 Segmental A. Sup (R) 27.6/7.2 cm/sec Segmental A. Mid (R) 39.6/15.6 cm/sec Segmental A. Inf (R) 28.8/12.0 cm/sec Origin (L) 123.5/ cm/sec Proximal (L) 105.5/ cm/sec Mid (L) 167.6/ cm/sec Distal (L) 167.6/ cm/sec Renal Aorta Ratio (L) 2.02 Segmental A. (L) 46.4/11.6 cm/sec RI: 0.75 Segmental A. Sup (L) 33.0/8.0 cm/sec Segmental A. Mid (L) 46.4/11.6 cm/sec Segmental A. Inf (L) 40.1/21.4 cm/sec Renal Measurements Kidney Size (R) 10.6x5.9 cm Cortical Thickness (R) 1.2 cm Kidney Size (L) 12.2x5.6 cm Cortical Thickness (L) 1.6 cm Findings Study suggests greater than 60% stenosis of the right renal artery. Study suggests normal left renal artery. Conclusion Study suggests greater than 60% stenosis of the right renal artery. Study suggests normal left renal artery. 3cm left renal cyst Electronically signed by : Khanh Cr MD 08/25/2021 16:24:55
== END ==
PROVIDERS: PCP Internal Medicine Adolescent Medicine; Visit Provider Nurse Practitioner Family
DX: I10 Essential (primary) hypertension (principal)
CPT/HCPCS: 93976

== ENCOUNTER → 2021-09-01 11:54 | Outpatient (CLI) | payer OTHER, SELFPAY ==
[2021-09-01 12:22] LABS: Basophils # 0.1 K/mm3 (0-0.2); Basophils % 0.7 % (0.1-2.0); Eosinophils # 0.2 K/mm3 (0.0-0.4); Hematocrit 39.7 % (37.0-47.0); Hemoglobin 13.4 g/dL (12.2-16.2); Lymphocytes # 2.3 K/mm3 (0.7-4.5); Lymphocytes % 28.2 % (10-50); Mean Corpuscular HGB Conc 33.7 g/dL (31.8-35.4); Mean Corpuscular Hemoglobin 29.2 pg (27.0-31.2); Mean Corpuscular Volume 86.7 fl (81-99); Mean Platelet Volume 7.8 fl (7.4-10.4); Monocytes # 0.4 K/mm3 (0.1-1.0); Monocytes % 4.8 % (1.7-9.3); Neutrophils # 5.3 K/mm3 (1.8-7.8); Neutrophils % 64.2 % (37.0-80.0); Platelet Count 371 K/mm3 (142-424); Red Blood Count 4.58 M/mm3 (4.20-5.40); White Blood Count 8.3 K/mm3 (4.8-10.8)
[2021-09-01 13:06] LABS: Anion Gap 11.4 mEq/L (5-15); Blood Urea Nitrogen 9 mg/dl (7-17); Calcium 9.7 mg/dl (8.4-10.2); Carbon Dioxide 27 mmol/L (22.0-30.0); Chloride 105 mmol/L (98-107); Estimated Glomerular Filt Rate 74 ml/min (>60); GFR (African American) 90 ML/MIN (>60); Glucose 106 mg/dl (74-100); Potassium 4.4 mmoL/L (3.5-5.1); Sodium 139 mmol/L (136-145)
== END ==
PROVIDERS: Visit Provider Physician Assistant
DX: Z95.810 Presence of automatic (implantable) cardiac defibrillator (principal); U07.1 COVID-19; I50.22 Chronic systolic (congestive) heart failure; I11.0 Hypertensive heart disease with heart failure; I25.118 Atherosclerotic heart disease of native coronary artery with other forms of angina pectoris; E78.2 Mixed hyperlipidemia; I70.1 Atherosclerosis of renal artery; I77.9 Disorder of arteries and arterioles, unspecified; G25.81 Restless legs syndrome
CPT/HCPCS: 36415; 80048; 85025; C9803; U0003; U0005

== ENCOUNTER 2021-09-02 08:31 | Day surgery (SDC) | payer OTHER, SELFPAY ==
[2021-09-02] VITALS (13 sets, daily range): BP systolic 151–210; BP diastolic 97–135; PULSE 70–78; RESP 12–19; TEMP 36.7; O2SAT 90–99; BMI 25.0
--- NOTE | 2021-09-02 07:10 | IR_ITS ---
APPROVED REPORT Patient Location: Outpatient Rn Midwife: OVIDIO Dhillon RT (R) PROCEDURES Bilateral selective renal angiogram Bare-metal stent deployment to the right renal artery INDICATION Renovascular hypertension, Renal artery stenosis, Abnormal renal duplex Informed consent was obtained prior to the procedure. COMPLICATIONS NONE Estimated Blood Loss: LESS THAN 10 ML TECHNIQUE 1% lidocaine used to anesthetize the right femoral groin. The right femoral artery was accessed via the Seldinger technique. A 4 Afghan sheath was placed in the right femoral artery. The JR4 catheter was used to selectively intubate each renal artery. At the end the diagnostic angiogram therapeutic heparin was administered and the 4 Afghan sheath was exchanged for a 7 Afghan sheath. A short MICHAEL guide catheter was placed in the right renal artery and a Choice PT extra-support wire was placed distally. A 6.5 x 15 mm Herculink bare-metal stent was deployed at 14 troy initially and the balloon was brought back to the ostium and inflated at 18 troy. Excellent angiographic results were obtained. At the end of the procedure the apparatus was removed the groin was reprepped closure changed sheath was removed good hemostasis was achieved using Perclose device patient was transferred to the postop holding in stable condition ANGIOGRAPHIC RESULTS Right renal artery singular and has an ostial 80 to 90% stenosis Left renal artery singular and has a stent in the ostial proximal segment which is widely patent with mild in-stent restenosis and excellent inline flow IMPRESSION Severe right renal artery stenosis Successful percutaneous revascularization of the right renal artery severe disease reduced to 0% with 1 bare-metal stent Widely patent left renal artery with widely patent left renal artery stent PLAN 1. Dual antiplatelet therapy for 1 month 2. Treatment of hypertension 3. Risk factor modification Electronically signed by : Cristi Cleaning MD 09/02/2021 10:34:12
[2021-09-02 11:11] LABS: CATHL Activated Clotting Time 339 SEC (74-125)
--- NOTE | 2021-09-02 13:18 | HMH.PHACLD ---
Ashley Ding has received discharge medication counseling on the following medications: PATIENT IS CURRENTLY TAKING ASPIRIN 81 MG EC DAILY, LOSARTAN 50 MG DAILY, METOPROLOL SUCCINATE 100 MG BID, AND CLOPIDOGREL 75 MG DAILY. DUE TO INTOLERANCE TO STATINS AND ZETIA, PATIENT IS CURRENTLY RECEIVING REPATHA 140 MG SQ EVERY 2 WEEKS.
== END 2021-09-02 14:00 | disposition home or self-care (01) ==
LOC: CATHLAB 08:34
PROVIDERS: PCP Internal Medicine Adolescent Medicine; Visit Provider Internal Medicine
PROC: (CPT 37236; principal; 2021-09-02 07:00)
DX: I11.0 Hypertensive heart disease with heart failure (principal); I50.22 Chronic systolic (congestive) heart failure; I25.118 Atherosclerotic heart disease of native coronary artery with other forms of angina pectoris; I70.1 Atherosclerosis of renal artery; Z79.01 Long term (current) use of anticoagulants; Z79.899 Other long term (current) drug therapy; I77.1 Stricture of artery; G25.81 Restless legs syndrome; Z95.810 Presence of automatic (implantable) cardiac defibrillator; J44.9 Chronic obstructive pulmonary disease, unspecified
CPT/HCPCS: 37236; 85347; 99152; C1725; C1760; C1769; C1876; C1894; J1644; Q9967

== ENCOUNTER → 2021-12-10 15:50 | Outpatient (CLI) | payer OTHER, SELFPAY ==
--- NOTE | 2021-12-10 16:12 | XR_ITS ---
FINAL REPORT CLINICAL HISTORY: pain, cellulitis cellulitis, ulcers heel and bottom of lt. foot, top of toes, FINDINGS: LEFT FOOT FINDINGS: Three views show no evidence of an acute, displaced fracture or dislocation. The joint spaces appear normal. The soft tissues are unremarkable. IMPRESSION: No acute bony abnormality. Reviewed, Interpreted and Dictated by Krish Christianson III, MD Transcribed by Awilda Tran Authenticated by Krish Christianson III, MD on 12/10/2021 04:49:[address] [facility]
[2021-12-10 16:25] LABS: Basophils # 0.1 K/mm3 (0-0.2); Basophils % 1.3 % (0.1-2.0); Eosinophils # 0.2 K/mm3 (0.0-0.4); Eosinophils % 2.1 % (0.1-12.0); Hematocrit 43.3 % (37.0-47.0); Hemoglobin 14.5 g/dL (12.2-16.2); Lymphocytes # 2.2 K/mm3 (0.7-4.5); Lymphocytes % 29.9 % (10-50); Mean Corpuscular HGB Conc 33.4 g/dL (31.8-35.4); Mean Corpuscular Hemoglobin 29.4 pg (27.0-31.2); Mean Corpuscular Volume 88.2 fl (81-99); Mean Platelet Volume 7.9 fl (7.4-10.4); Monocytes # 0.4 K/mm3 (0.1-1.0); Neutrophils # 4.4 K/mm3 (1.8-7.8); Neutrophils % 61.6 % (37.0-80.0); Platelet Count 346 K/mm3 (142-424); Red Blood Count 4.91 M/mm3 (4.20-5.40); White Blood Count 7.2 K/mm3 (4.8-10.8)
[2021-12-10 17:13] LABS: Chloride 106 mmol/L (98-107); Sodium 138 mmol/L (136-145)
[2021-12-10 17:15] LABS: Blood Urea Nitrogen 12 mg/dl (7-17)
[2021-12-10 17:16] LABS: Alanine Aminotransferase 18 U/L (12-78); Albumin Level 4.5 g/dl (3.5-5.0); Albumin/Globulin Ratio 1.7 (1.1-1.8); Alkaline Phosphatase 84 U/L (38-126); Aspartate Amino Transferase 25 U/L (14-36); Bilirubin,Total 0.6 mg/dl (0.2-1.3); Calcium 9.1 mg/dl (8.4-10.2); Carbon Dioxide 26 mmol/L (22.0-30.0); Estimated Glomerular Filt Rate 65 ml/min (>60); GFR (African American) 78 ML/MIN (>60); Globulin 2.7 g/dL (1.3-3.2); Glucose 84 mg/dl (74-100); Total Protein,Serum 7.2 g/dl (6.3-8.2)
[2021-12-10 17:20] LABS: Erythrocyte Sedimentation Rate 16 mm/hr (0-30)
[2021-12-10 17:22] LABS: C-Reactive Protein 4.4 mg/L (0-4)
== END ==
PROVIDERS: PCP Internal Medicine Adolescent Medicine; Visit Provider Nurse Practitioner Family
DX: Z51.89 Encounter for other specified aftercare (principal); L03.116 Cellulitis of left lower limb
CPT/HCPCS: 73630; 80053; 85025; 85651; 86140; 87070; 87077; 87186; 87205

== ENCOUNTER 2022-01-02 11:38 | Observation (INO) | payer OTHER, SELFPAY ==
[2022-01-02] VITALS (10 sets, daily range): BP systolic 142–198; BP diastolic 83–109; PULSE 68–105; RESP 14–21; TEMP 36.4–37.1; O2SAT 96–99; BMI 24.7; BMI 23.6
--- NOTE | 2022-01-02 11:34 | ECG_ITS ---
APPROVED REPORT Exam: Resting ECG HR:106 bpm ECG Measurements Heart Rate 106 AXES [place] 160 P 51 QRSd 146 QRS 11 QT 367 T -81 QTc 429 Conclusion SINUS TACHYCARDIA LEFT ATRIAL ENLARGEMENT [-0.15mV P-WAVE IN V1/V2] INTRAVENTRICULAR CONDUCTION DELAY [130+ ms QRS DURATION] ABNORMAL ECG UNCONFIRMED REPORT Electronically signed by : William Hunter MD 01/02/2022 14:49:40
--- NOTE | 2022-01-02 11:43 | HMH.EDGENADL ---
ED Disposition Clinical Impression: Ventricular tachycardia, Cellulitis of left foot, Acute anxiety Disposition: Admitted as Observation Condition on Discharge: Fair Referrals: Jabari Goetz MD [Primary Care Provider] - - Critical Care Critical Care Time: No Attestation: On , the high probability of a clinically significant, sudden or life threatening deterioration of the following system(s) required my full and direct attention, intervention and personal management. The time I documented below is in addition to time spent performing reported procedures but includes the following listed in this critical care notation. Medical Decision Making - Medical Records Medical records reviewed: Yes: I reviewed the patient's medical records. - Reed Inquiry Pt receiving controlled substance: No Vital Signs: 01/02/22 11:38 01/02/22 12:01 01/02/22 12:31 Temperature 98.7 F Temperature Source Oral Pulse Rate 70 69 Pulse Rate [Right] 105 H Respiratory Rate 16 14 21 Blood Pressure 198/109 H 159/83 H Blood Pressure [Right Arm] 161/103 H Blood Pressure Mean 138 126 Blood Pressure Mean [Right Arm] 122 Blood Pressure Source [Right Arm] Automatic Cuff Blood Pressure Position [Right Arm] Sitting 02 Sat by Pulse Oximetry 97 99 99 Oxygen Delivery Method Room Air - Lab Data Lab results reviewed: Yes: I reviewed the patient's lab results. Lab Results 01/02/22 11:42: WBC 7.5, RBC 5.17, Hgb 15.4, Hct 46.5, MCV 90.0, MCH 29.8, MCHC 33.2, RDW 14.0, Plt Count 320, MPV 7.9, Neut % (Auto) 55.1, Lymph % (Auto) 37.3, Mcleod % (Auto) 4.6, Eos % (Auto) 1.6, Baso % (Auto) 1.3, Neut # (Auto) 4.1, Lymph # (Auto) 2.8, Mcleod # (Auto) 0.4, Eos # (Auto) 0.1, Baso # (Auto) 0.1 01/02/22 11:42: Sodium 139, Potassium 3.3 L, Chloride 103, Carbon Dioxide 23, Anion Gap 16.3 H, BUN 16, Creatinine 0.90, Estimated Creat Clear 72, Estimated GFR 65, Est GFR ( Amer) 78, Glucose 117 H, Calcium 9.2, Total Bilirubin 1.0, AST 37 H, ALT 29, Alkaline Phosphatase 98, Troponin I 0.02, Total Protein 7.9, Albumin 4.8, Globulin 3.1, Albumin/Globulin Ratio 1.5 01/02/22 11:42: Magnesium 1.8 Result diagrams: 01/02/22 11:42 01/02/22 11:42 Orders (Tests/Meds): ED MEDICATIONS Generic Name Dose Route Start Last Admin Trade Name Freq PRN Reason Stop Dose Admin Metoprolol Succinate 100 mg 01/02/22 12:45 Metoprolol Succinate Xl 100mg Tablet PO 02/01/22 12:44 DAILY MARIA E Sodium Chloride 10 ml 01/02/22 11:43 Sodium Chloride 0.9% 10ml Flush Syringe IV 02/01/22 11:42 NEEDED PRN Maintain IV Site ORDERS Category Date Time Status Lactic Acid Stat Lab 01/02/22 12:53 Ordered Rapid PCR Covid and Flu A/B Stat Lab 01/02/22 12:53 Ordered Troponin I Q3H Lab 01/02/22 14:45 Ordered Troponin I Q3H Lab 01/02/22 17:45 Ordered Blood Culture Stat Micro 01/02/22 12:53 Ordered - ECG Data Tracing #1 The patient is EKG was performed at 1135. It shows a sinus tachycardia with a rate of 106 bpm with an ventricular conduction delay consistent with possible left bundle branch block. There are no dysrhythmias at this time. No evidence of acute ischemia. Normal Sinus Rhythm: Yes Arrhythmias present: sinus tach Conduction abnormalities present: LBBB - Physician Consults Physician Consulted: Gregory LIMON)/Dr Cleaning Time: 11:54 Reason -: Cardiology Eval/Care Comment/Response: Mr. Monte is at the patient's bedside evaluating the patient. labs are still pending. The patient's adult family home program manager, Dr. Cleaning has recommended the patient be admitted to the hospital for intravenous vancomycin to reduce the risk of pacemaker infection from her MRSA wound on her left foot. Additional Consult: Dr. Goetz Time: 12:52 Reason -: Admission Comment/Response: Dr. Goetz has agreed with admission of the patient to his service. He has requested blood cultures to be drawn for possible PICC line placement. Medical Decision Narrative:
--- NOTE | 2022-01-02 11:44 | PC.NURSE ---
Notified cardiology patient was here. MD at bedside
--- NOTE | 2022-01-02 11:51 | PC.NURSE ---
Gregory Monte and Claude Ashley from cardiology at bedside
[2022-01-02 11:57] LABS: Chloride 103 mmol/L (98-107); Sodium 139 mmol/L (136-145)
[2022-01-02 11:58] LABS: Basophils # 0.1 K/mm3 (0-0.2); Basophils % 1.3 % (0.1-2.0); Eosinophils # 0.1 K/mm3 (0.0-0.4); Eosinophils % 1.6 % (0.1-12.0); Hematocrit 46.5 % (37.0-47.0); Hemoglobin 15.4 g/dL (12.2-16.2); Lymphocytes # 2.8 K/mm3 (0.7-4.5); Lymphocytes % 37.3 % (10-50); Mean Corpuscular HGB Conc 33.2 g/dL (31.8-35.4); Mean Corpuscular Hemoglobin 29.8 pg (27.0-31.2); Mean Platelet Volume 7.9 fl (7.4-10.4); Monocytes # 0.4 K/mm3 (0.1-1.0); Monocytes % 4.6 % (1.7-9.3); Neutrophils # 4.1 K/mm3 (1.8-7.8); Neutrophils % 55.1 % (37.0-80.0); Platelet Count 320 K/mm3 (142-424); Potassium 3.3 mmoL/L (3.5-5.1); Red Blood Count 5.17 M/mm3 (4.20-5.40); White Blood Count 7.5 K/mm3 (4.8-10.8)
[2022-01-02 12:00] LABS: Alanine Aminotransferase 29 U/L (12-78); Albumin Level 4.8 g/dl (3.5-5.0); Albumin/Globulin Ratio 1.5 (1.1-1.8); Alkaline Phosphatase 98 U/L (38-126); Anion Gap 16.3 mEq/L (5-15); Aspartate Amino Transferase 37 U/L (14-36); Blood Urea Nitrogen 16 mg/dl (7-17); Carbon Dioxide 23 mmol/L (22.0-30.0); Creatinine Clearance Estimated 72 mL/min (50-200); Estimated Glomerular Filt Rate 65 ml/min (>60); GFR (African American) 78 ML/MIN (>60); Globulin 3.1 g/dL (1.3-3.2); Total Protein,Serum 7.9 g/dl (6.3-8.2)
[2022-01-02 12:01] LABS: Calcium 9.2 mg/dl (8.4-10.2); Glucose 117 mg/dl (74-100)
[2022-01-02 12:12] LABS: Troponin I 0.02 ng/ml (0.00-0.034)
[2022-01-02 12:17] LABS: Magnesium 1.8 mg/dl (1.6-2.3)
--- NOTE | 2022-01-02 12:43 | PC.NURSE ---
has been paged. Will call back
--- NOTE | 2022-01-02 12:48 | PC.NURSE ---
on the phone with
--- NOTE | 2022-01-02 12:55 | PC.NURSE ---
notified care management of admission, spoke with Mónica
--- NOTE | 2022-01-02 13:02 | PC.NURSE ---
1257 bed assignment requested, will board in ED until room becomes available soon
--- NOTE | 2022-01-02 13:04 | PC.NURSE ---
Lab at bedside collecting BC at this time
[2022-01-02 13:23] LABS: Coronavirus 19, PCR Not Detected (NotDetected); Influenza A, PCR Not Detected (NotDetected); Influenza B, PCR Not Detected (NotDetected)
--- NOTE | 2022-01-02 13:30 | PC.NURSE ---
pt given warm blanket updated her on POC notified pt she will be boarding in ER until a room is available on second floor
--- NOTE | 2022-01-02 13:44 | HMH.CNCARD ---
History of Present Illness Consult date: 01/02/22 Requesting physician: Jabari Goetz Consult reason: chest pain Chief complaint: AICD firing, VF on download Additional Medical History:: 1. Coronary artery disease with history of drug-eluting stent placement A. Left heart catheterization 11/2019, ANGIOGRAPHIC RESULTS The left main artery Normal The left anterior descending artery As proximal smooth 10% luminal irregularity The circumflex artery Nondominant normal The right coronary artery Is a large dominant vessel which has stents through the proximal mid and distal segment and it can to give us manner which are widely patent free of in-stent restenosis and excellent proximal distal transitioning. Distally there is a 30% concentric stenosis. The WRAY ventriculogram reveals Left ventricular dilatation anterior wall hypokinesis with inferior wall akinesis estimated ejection fraction 20% The left ventricular end-diastolic pressure 20 mmHg IMPRESSION Coronary artery disease as described above Left ventricular dysfunction with regional wall motion abnormality as described above Mildly elevated LVEDP PLAN 1. Standard therapy for systolic heart failure 2. Standard therapy for coronary disease 2. Renal artery stenosis A. History of bare-metal stenting of left renal artery, 07/2018 B. BMS to right renal artery, 08/2021, Left renal artery stent widely patent. 3. History of malignant hypertension 4. History of cardiomyopathy, EF 20 to 30% by echo 11/[address] 5. Hyperlipidemia 6. Medication noncompliance 7. MRSA of the left foot, 2021 8. PAD A. Abdominal aortogram with runoff, 03/2020 ANGIOGRAPHIC RESULTS The suprarenal abdominal aorta is normal. The left renal artery is singular and has a stent in the ostial proximal segment which is widely patent free of in-stent restenosis. The right renal artery singular normal. The infrarenal abdominal aorta is mild to moderately atheromatous with diffuse 30% [id number] stenosis. The right common iliac artery has a stent in the ostial segment with a 50% in-stent restenotic lesion. The right internal iliac artery is ostially occluded while the external iliac artery is widely patent. The right common femoral artery is normal. The right profunda femoris artery is normal. The right superficial femoral artery has mid vessel 40 to 50% stenosis which transitions into a large popliteal artery which has a mid vessel 40% stenosis. Distally the posterior tibialis artery is occluded however the anterior tibialis artery and the peroneal artery are patent into the right foot The left common iliac artery has an ostial 30% stenosis while the left internal iliac artery is occluded. The left external iliac artery is widely patent. The left common femoral artery is patent. The left profunda femoris artery is widely patent. The left superficial femoral artery has mid vessel 40 to 50% stenosis. The left popliteal artery is widely patent with mild atheromatous 20% plaque. There appears to be three-vessel runoff below the knee on the left side however due to motion artifact the full angiogram cannot be visualized in the distal two thirds of the left calf IMPRESSION Peripheral artery disease as described above PLAN 1. Medical management 2. Treatment for restless leg syndrome using Requip 1 to 2 mg nightly 3. Risk factor modification History of present illness: 56-year-old white female well-known to our practice presented to the emergency department after her defibrillator shocked her today. Patient states around 11:00 she began feeling weird and shortly thereafter received a defibrillation/shock. She came to the ER for evaluation and during questioning relates that she has been missing doses of her medication from time to time. Recently she has been being treated for MRSA of her left foot through Dr. Roberson's office and has a sig
--- NOTE | 2022-01-02 13:46 | PC.NURSE ---
Called and ordered pt regular lunch tray.
--- NOTE | 2022-01-02 13:58 | HMH.PHACONS ---
- Pharmacy Consult Date: 01/02/22 Time: 13:58 Referring provider: DR. NUNEZ Reason for Consult:: VANCOMYCIN DOSING Allergies and ADEs:: Allergies Allergy/AdvReac Type Severity Reaction Status Date / Time atorvastatin [From LIPITOR] Allergy Intermediate CAN'T Verified 12/26/21 13:39 WALK ezetimibe [From Zetia] Allergy Intermediate myalgias Verified 12/26/21 13:39 hydrocodone [HYDROCODONE] Allergy Intermediate ITCHING, Verified 12/26/21 13:39 N/V simvastatin [From Zocor] Allergy Intermediate myalgia Verified 12/26/21 13:39 codeine [CODEINE] Allergy Mild ITCHING Verified 12/26/21 13:39 rosuvastatin [From Crestor] AdvReac Severe Verified 12/26/21 13:39 Home Medications:: Home Medications Medication Instructions Recorded Confirmed Type magnesium 200 mg tablet 200 mg PO DAILY 07/07/18 12/26/21 History Aspirin [Aspirin 81mg EC Tab] 81 mg PO DAILY 12/15/19 12/26/21 History Evolocumab [Repatha SureClick] See Rx Instructions .ROUTE .COMPLEX 09/02/21 12/26/21 History Isosorbide Mononitrate [Isosorbide See Rx Instructions .ROUTE .COMPLEX 09/02/21 12/26/21 History Mononitrate ER] Metoprolol Succinate [Metoprolol See Rx Instructions .ROUTE .COMPLEX 09/02/21 12/26/21 History Succinate 100mg Tablet*] Pantoprazole Sodium See Rx Instructions .ROUTE .COMPLEX 09/02/21 12/26/21 History Ropinirole HCl See Rx Instructions .ROUTE .COMPLEX 09/02/21 12/26/21 History hydroCHLOROthiazide See Rx Instructions .ROUTE .COMPLEX 09/02/21 12/26/21 History [Hydrochlorothiazide] clopidogrel 75 mg tablet See Rx Instructions .ROUTE 12/10/21 12/26/21 Rx .COMPLEX #90 tablet losartan 100 mg tablet 100 mg PO DAILY #90 tab 12/10/21 12/26/21 Rx gentamicin 0.1 % topical ointment 1 applic TOPICAL BID 30 Days #30 g 12/11/21 12/26/21 Rx mupirocin 2 % topical ointment 1 applic TOPICAL BID 30 Days #22 g 12/11/21 12/26/21 Rx empagliflozin 10 mg tablet 10 mg PO DAILY #30 tab 12/26/21 12/26/21 Rx Height: 1.63 m Weight: 65.317 kg Laboratory Results:: Laboratory Results - last 24 hr 01/02/22 11:42: WBC 7.5, RBC 5.17, Hgb 15.4, Hct 46.5, MCV 90.0, MCH 29.8, MCHC 33.2, RDW 14.0, Plt Count 320, MPV 7.9, Neut % (Auto) 55.1, Lymph % (Auto) 37.3, [place]ayson % (Auto) 4.6, Eos % (Auto) 1.6, Baso % (Auto) 1.3, Neut # (Auto) 4.1, Lymph # (Auto) 2.8, [place]ayson # (Auto) 0.4, Eos # (Auto) 0.1, Baso # (Auto) 0.1 01/02/22 11:42: Sodium 139, Potassium 3.3 L, Chloride 103, Carbon Dioxide 23, Anion Gap 16.3 H, BUN 16, Creatinine 0.90, Estimated Creat Clear 72, Estimated GFR 65, Est GFR ( Amer) 78, Glucose 117 H, Calcium 9.2, Total Bilirubin 1.0, AST 37 H, ALT 29, Alkaline Phosphatase 98, Troponin I 0.02, Total Protein 7.9, Albumin 4.8, Globulin 3.1, Albumin/Globulin Ratio 1.5 01/02/22 11:42: Magnesium 1.8 01/02/22 12:53: SARS-CoV-2 (PCR) Not detected, Influenza A Untype (PCR) Not detected, Influenza Type B (PCR) Not detected Medical History: Reports:: Chronic Obstructive Pulmonary Disease (COPD), Coronary Artery Disease, Hyperlipidemia, Hypertension, Internal Pacemaker, Kidney Stones, Myocardial Infarction, Peripheral Artery Disease, Renal Disease Denies:: Cancer, Diabetes Mellitus Type 1, Diabetes Mellitus Type 2, MRSA, Seizures Assessment and Plan (1) Ventricular fibrillation seen on library monitor Status: Acute Category: Medical Code(s): I49.01 - Ventricular fibrillation (2) AICD discharge Status: Acute Category: Medical Code(s): Z45.02 - Encounter for adjustment and management of automatic implantable cardiac defibrillator (3) MRSA cellulitis of left foot Status: Acute Category: Medical Code(s): L03.116 - Cellulitis of left lower limb; B95.62 - Methicillin resistant Staphylococcus aureus infection as the cause of diseases classified elsewhere (4) CAD (coronary artery disease) Status: Chronic Qualifiers: Qualified Code(s): I25.118 - Atherosclerotic heart disease of [place] coronary artery with other forms of angina pectoris Category:
--- NOTE | 2022-01-02 14:40 | PC.NURSE ---
Updated pt on POC, provided socks. Lab at bedside drawing 2nd troponin and lactic at this time. PT has no other needs and is aware she will be waiting in the ER until bed available.
[2022-01-02 14:59] LABS: Lactic Acid 2.9 mmol/L (0.7-2.1)
--- NOTE | 2022-01-02 15:09 | PC.NURSE ---
Called report to Sundeep
[2022-01-02 15:29] LABS: Troponin I 0.06 ng/ml (0.00-0.034)
[2022-01-02 18:48] LABS: Reflex Lactic Add Lactic Reflex
--- NOTE | 2022-01-02 18:56 | HMH.HP ---
*Admission Date: 01/02/22 *Chief complaint: foot pain *History of present illness: 56-year-old female significant history of tobacco use, coronary artery disease, peripheral artery disease, and current episode of arterial ulcerations of left foot. She presented to the emergency department after her defibrillator shocked her today. On interview she states that earlier today she began to feel weird and have sensation of palpitations/heart racing. She has had episodes of this before where she has felt her pacemaker takeover. She did not feel takeover at this time and decided to call a friend instead on the phone with her while she awaited something to happen. Shortly thereafter she received a shock/defibrillation with a third sensation to her chest. She felt her heart rhythm normalize. After this she came to the ER for further assessment. In the ER her AICD was interrogated identifying 3 episodes of V. fib within 2 minutes that were treated with antitachycardia pacing prior to defibrillation. She also admits that she has been missing doses of her medication from time to time. Hemodynamically stable in the ER. Labs obtained and are essentially normal baseline for her. Of note however she has been dealing with wounds on her left foot that are then slowly responding to treatment from podiatry. Her most recent wound culture from heel ulcer obtained on 12/10 was positive for MRSA. Cardiology requested consideration for admission given concerns that seeding of her AICD could be detrimental. Regimen from podiatry has included topical treatment with mupirocin and gentamicin. On evaluation after arriving to the floor, patient's foot has interval improvement from last evaluation in our office 2 weeks ago. Is afebrile, hemodynamically stable, white cell count normal. [facility] History I have reviewed the patient's past medical history: Yes Medical History: Reports:: Arrhythmia, Chronic Obstructive Pulmonary Disease (COPD), Coronary Artery Disease, Hyperlipidemia, Hypertension, Internal Pacemaker, Kidney Stones, Myocardial Infarction, Peripheral Artery Disease, Renal Disease Denies:: Cancer, Diabetes Mellitus Type 1, Diabetes Mellitus Type 2, MRSA, Seizures *Have you ever received a pneumonia vaccine?: Yes *Have you received a flu vaccine this season?: Yes Other Surgeries: Yes: No Previous Surgery, Cardiac Catheterization, Colonoscopy, Coronary Stent, Pacemaker, Other Amputation: No Fractures: No - *Social History Last grade of school completed: High school graduate Smoking Status: Former smoker Tobacco Type: cigarettes # Packs/Day (cigarettes): 1 Alcohol Intake: never Alcohol Intake Frequency:: other Substance Use Type: denies use *Occupational Status:: student Housing: house Household Members: family *Travel in the last 8 weeks: Inside the [place] Family Hx:: Other Review of Systems - Review of Systems Review of systems:: pertinent systems reviewed and negative unless documented below (14 point review of systems performed, pertinent positives and negatives as per HPI) - *Neurologic Reports abnormal walking, Reports other (Patient feels very anxious at this time) Meds Home Medications Medication Instructions Recorded Confirmed Type magnesium 200 mg tablet 200 mg PO DAILY 07/07/18 01/02/22 History Aspirin [Aspirin 81mg EC Tab] 81 mg PO DAILY 12/15/19 01/02/22 History Evolocumab [Repatha SureClick] See Rx Instructions .ROUTE .COMPLEX 09/02/21 01/02/22 History Isosorbide Mononitrate [Isosorbide See Rx Instructions .ROUTE .COMPLEX 09/02/21 01/02/22 History Mononitrate ER] Metoprolol Succinate [Metoprolol See Rx Instructions .ROUTE .COMPLEX 09/02/21 01/02/22 History Succinate 100mg Tablet*] Pantoprazole Sodium See Rx Instructions .ROUTE .COMPLEX 09/02/21 01/02/22 History Ropinirole HCl See Rx Instructions .ROUTE .COMPLEX 09/02/21 01/02/22 History hydroCHLOROthiazide See Rx Instructions .ROUTE .COMPLEX 09/02/21 01/02/22 History [Hyd
[2022-01-02 19:22] LABS: Lactic Acid Follow Up (RFLX 1) 1.4 mmol/L (0.7-2.1)
--- NOTE | 2022-01-02 23:56 | PC.WOUNDNOTE ---
Left of the inside aspect of the [place] To[place] Left heel Top of left foot Outside of left foot
[2022-01-03] VITALS: BP 143/97; PULSE 70; RESP 16; TEMP 36.7; O2SAT 98
[2022-01-03 04:00] VITALS: BP 138/87; PULSE 70; RESP 16; TEMP 36.7; O2SAT 96
[2022-01-03 05:00] VITALS: BMI 24.1
[2022-01-03 07:18] LABS: Basophils # 0.1 K/mm3 (0-0.2); Basophils % 1.2 % (0.1-2.0); Chloride 105 mmol/L (98-107); Eosinophils # 0.1 K/mm3 (0.0-0.4); Eosinophils % 1.9 % (0.1-12.0); Hematocrit 42.7 % (37.0-47.0); Hemoglobin 14.5 g/dL (12.2-16.2); Lymphocytes # 2.4 K/mm3 (0.7-4.5); Lymphocytes % 33.1 % (10-50); Mean Corpuscular HGB Conc 33.9 g/dL (31.8-35.4); Mean Corpuscular Hemoglobin 29.9 pg (27.0-31.2); Mean Corpuscular Volume 88.3 fl (81-99); Mean Platelet Volume 8.4 fl (7.4-10.4); Monocytes # 0.4 K/mm3 (0.1-1.0); Neutrophils # 4.3 K/mm3 (1.8-7.8); Neutrophils % 58.9 % (37.0-80.0); Platelet Count 313 K/mm3 (142-424); Potassium 3.8 mmoL/L (3.5-5.1); Red Blood Count 4.83 M/mm3 (4.20-5.40); Red Cell Distribution Width 13.9 % (11.5-17.5); Sodium 137 mmol/L (136-145); White Blood Count 7.3 K/mm3 (4.8-10.8)
[2022-01-03 07:21] LABS: Anion Gap 12.8 mEq/L (5-15); Blood Urea Nitrogen 15 mg/dl (7-17); Calcium 8.8 mg/dl (8.4-10.2); Carbon Dioxide 23 mmol/L (22.0-30.0); Creatinine Clearance Estimated 79 mL/min (50-200); Estimated Glomerular Filt Rate 74 ml/min (>60); GFR (African American) 90 ML/MIN (>60); Glucose 106 mg/dl (74-100)
[2022-01-03 07:26] LABS: C-Reactive Protein 2.1 mg/L (0-4)
[2022-01-03 07:33] VITALS: BP 159/91; PULSE 70; RESP 16; TEMP 36.5; O2SAT 97
[2022-01-03 08:00] LABS: Erythrocyte Sedimentation Rate 12 mm/hr (0-30)
--- NOTE | 2022-01-03 08:48 | HMH.DCSUM ---
General - General Admission date:: 01/02/22 Discharge date: 01/03/22 HPI HPI: 56-year-old female significant history of tobacco use, coronary artery disease, peripheral artery disease, and current episode of arterial ulcerations of left foot. She presented to the emergency department after her defibrillator shocked her today. On interview she states that earlier today she began to feel weird and have sensation of palpitations/heart racing. She has had episodes of this before where she has felt her pacemaker takeover. She did not feel takeover at this time and decided to call a friend instead on the phone with her while she awaited something to happen. Shortly thereafter she received a shock/defibrillation with a third sensation to her chest. She felt her heart rhythm normalize. After this she came to the ER for further assessment. In the ER her AICD was interrogated identifying 3 episodes of V. fib within 2 minutes that were treated with antitachycardia pacing prior to defibrillation. She also admits that she has been missing doses of her medication from time to time. Hemodynamically stable in the ER. Labs obtained and are essentially normal baseline for her. Of note however she has been dealing with wounds on her left foot that are then slowly responding to treatment from podiatry. Her most recent wound culture from heel ulcer obtained on 12/10 was positive for MRSA. Cardiology requested consideration for admission given concerns that seeding of her AICD could be detrimental. Regimen from podiatry has included topical treatment with mupirocin and gentamicin. On evaluation after arriving to the floor, patient's foot has interval improvement from last evaluation in our office 2 weeks ago. Is afebrile, hemodynamically stable, white cell count normal. Hospital Course Hospital Course: Patient was admitted. Overnight she did very nicely. This morning she feels great. No further shocks from her AICD device. On evaluation of her foot compared to previous examinations, it shows marked improvement. Significant improvement in area of open ulcer. Redness is vastly improved and there is really no evidence of bony involvement or upper foot involvement whatsoever. Interestingly, inflammatory markers are normal as is her white count. Blood cultures have been taken which are pending obvious at the time of this dictation. Given her lack of systemic signs of illness intravenous antibiotic therapy is not warranted. She is planning to see podiatry on Wednesday. We will do the following actions. Her original MRSA cultures from the foot were sensitive to Bactrim, and I will send her home with 1 week of Bactrim in addition to her topical therapy from podiatry. I will ask her to get CBC, sed rate and CRP on Wednesday when she comes to see podiatry and then we will see her in the office on Wednesday to follow-up foot issues. AICD firing seems to be exactly what it was supposed to do and I have an extremely low suspicion of infection of the leads or any kind of systemic infection from this localized foot infection. She is making good efforts to quit smoking and I encouraged her that this would be the best thing to help her foot heal over the short and long-term. Objective Vital signs: Temp Pulse Resp BP Pulse Ox 97.7 F 70 16 159/91 H 97 01/03/22 07:33 01/03/22 07:33 01/03/22 07:33 01/03/22 07:33 01/03/22 07:33 no acute distress - *Routine HEENT Exam Head: Present: normocephalic Eye: Present: EOMI, PERRL ENT: Present: mucous membranes moist - *Routine Neck Exam Present: supple - Routine Chest/Breast/Axilla Exam Comments: AICD box in situ. No tenderness when moved. No surrounding redness. - *Routine Respiratory Exam Present: CTA bilaterally - *Routine Cardiovascular Exam Present: RRR - *Routine Abdominal Exam Present: soft, normoactive bowel sounds. Absent: tenderness - *Routine Extremities Exam Absen
--- NOTE | 2022-01-03 11:51 | P.CONPHA_ITS ---
[facility] Pharmacy VTE Monitoring - Patient Demographics Admission date: 01/03/22 Report Date: 01/03/22 Time: 11:51 Allergies/Adverse Reactions: Patient Allergies atorvastatin [From LIPITOR] Allergy (Intermediate, Verified 12/26/21 13:39) CAN'T WALK ezetimibe [From Zetia] Allergy (Intermediate, Verified 12/26/21 13:39) myalgias hydrocodone [HYDROCODONE] Allergy (Intermediate, Verified 12/26/21 13:39) ITCHING, N/V simvastatin [From Zocor] Allergy (Intermediate, Verified 12/26/21 13:39) myalgia codeine [CODEINE] Allergy (Mild, Verified 12/26/21 13:39) ITCHING rosuvastatin [From Crestor] Adverse Reaction (Severe, Verified 12/26/21 13:39) Height: 1.63 m Weight: 63.73 kg Patient Problems: Current Active Problems (Last Updated 06/08/19 @ 10:32 by Tsering Adams RN) Ventricular tachycardia (Acute) Acute anxiety (Acute) AICD discharge (Acute) MRSA cellulitis of left foot (Chronic) Cellulitis of left foot (Acute) CAD (coronary artery disease) (Chronic) Tobacco dependence (Chronic) Hypertensive heart disease (Chronic) Hyperlipidemia (Chronic) - VTE Risk Labs: VTE Related Lab Results Hgb 14.5 g/dL (12.2-16.2) 01/03/22 06:26 Hct 42.7 % (37.0-47.0) 01/03/22 06:26 Plt Count 313 K/mm3 (142-424) 01/03/22 06:26 BUN 15 mg/dl (7-17) 01/03/22 06:26 Creatinine 0.80 mg/dl (0.52-1.04) 01/03/22 06:26 Estimated Creat Clear 79 mL/min (50-200) 01/03/22 06:26 VTE Risk Level: Moderate Risk - Prophylaxis Types of VTE Prophylaxis: TEDS Knee High Location of Applied Device: Bilateral Lower Extremeties (ESTEE HOSE ORDERED)
--- NOTE | 2022-01-03 12:30 | PC.NURSE ---
pt has been discahrged from the unit. Took all of her belongigns with her. Voiced udnerstanding of all discahrge education and follow up appts. Saline lock discontinued as well as telemetry. dressings to foot are c/d/i/ denies any pain @ this time
--- NOTE | 2022-01-05 14:35 | CARE MANAGER ---
Contacted patient and discussed follow up from discharge. Patient states she picked up her antibiotic and has been taking that. She followed up with Dr. Roberson today. She has follow up with Dr. Goetz tomorrow, a test on and appointment with Dr. Cleaning on Wednesday. She states she is feeling well. ROSANNE Romero
== END 2022-01-03 12:30 | disposition home or self-care (01) ==
LOC: ER 12:57 → 2ND 13:11
PROVIDERS: Admitting Provider Internal Medicine Adolescent Medicine; Emergency Provider Emergency Medicine; PCP Internal Medicine Adolescent Medicine; Visit Provider Internal Medicine Adolescent Medicine
DX: L03.116 Cellulitis of left lower limb (principal); I47.2 Ventricular tachycardia; I25.118 Atherosclerotic heart disease of native coronary artery with other forms of angina pectoris; I49.01 Ventricular fibrillation; Z79.899 Other long term (current) drug therapy; I11.0 Hypertensive heart disease with heart failure; J44.9 Chronic obstructive pulmonary disease, unspecified; Z95.5 Presence of coronary angioplasty implant and graft; Z95.810 Presence of automatic (implantable) cardiac defibrillator; Z88.8 Allergy status to other drugs, medicaments and biological substances; Z79.01 Long term (current) use of anticoagulants; B95.62 Methicillin resistant Staphylococcus aureus infection as the cause of diseases classified elsewhere; I70.1 Atherosclerosis of renal artery; I77.1 Stricture of artery; I50.22 Chronic systolic (congestive) heart failure; L97.521 Non-pressure chronic ulcer of other part of left foot limited to breakdown of skin; L97.522 Non-pressure chronic ulcer of other part of left foot with fat layer exposed
CPT/HCPCS: 36415; 80048; 80053; 83605; 83735; 84484; 85025; 85651; 86140; 87040; 93005; 96365; 99285; C9803; G0378; U0003; U0005

== ENCOUNTER → 2022-01-05 10:46 | Outpatient (CLI) | payer OTHER, SELFPAY ==
[2022-01-05 11:22] LABS: Basophils # 0.1 K/mm3 (0-0.2); Basophils % 1.2 % (0.1-2.0); Eosinophils # 0.1 K/mm3 (0.0-0.4); Eosinophils % 1.6 % (0.1-12.0); Hematocrit 45.1 % (37.0-47.0); Hemoglobin 14.9 g/dL (12.2-16.2); Lymphocytes # 1.9 K/mm3 (0.7-4.5); Lymphocytes % 25.6 % (10-50); Mean Corpuscular HGB Conc 32.9 g/dL (31.8-35.4); Mean Corpuscular Hemoglobin 29.7 pg (27.0-31.2); Mean Corpuscular Volume 90.1 fl (81-99); Mean Platelet Volume 7.7 fl (7.4-10.4); Monocytes # 0.3 K/mm3 (0.1-1.0); Monocytes % 4.3 % (1.7-9.3); Neutrophils % 67.3 % (37.0-80.0); Platelet Count 324 K/mm3 (142-424); Red Blood Count 5.01 M/mm3 (4.20-5.40); Red Cell Distribution Width 13.9 % (11.5-17.5); White Blood Count 7.4 K/mm3 (4.8-10.8)
[2022-01-05 12:00] LABS: Alanine Aminotransferase 22 U/L (12-78); Albumin Level 4.5 g/dl (3.5-5.0); Albumin/Globulin Ratio 1.6 (1.1-1.8); Alkaline Phosphatase 78 U/L (38-126); Anion Gap 15.5 mEq/L (5-15); Aspartate Amino Transferase 27 U/L (14-36); Bilirubin,Total 0.7 mg/dl (0.2-1.3); Blood Urea Nitrogen 13 mg/dl (7-17); Calcium 9.6 mg/dl (8.4-10.2); Carbon Dioxide 24 mmol/L (22.0-30.0); Chloride 102 mmol/L (98-107); Estimated Glomerular Filt Rate 65 ml/min (>60); GFR (African American) 78 ML/MIN (>60); Globulin 2.8 g/dL (1.3-3.2); Glucose 104 mg/dl (74-100); Potassium 4.5 mmoL/L (3.5-5.1); Sodium 137 mmol/L (136-145); Total Protein,Serum 7.3 g/dl (6.3-8.2)
[2022-01-05 12:03] LABS: Erythrocyte Sedimentation Rate 12 mm/hr (0-30)
[2022-01-05 12:06] LABS: C-Reactive Protein 3.4 mg/L (0-4)
== END ==
PROVIDERS: Visit Provider Internal Medicine Adolescent Medicine
DX: L03.116 Cellulitis of left lower limb (principal)
CPT/HCPCS: 36415; 80053; 85025; 85651; 86140

== ENCOUNTER → 2022-01-08 07:42 | Outpatient (CLI) | payer OTHER, SELFPAY ==
--- NOTE | 2022-01-08 07:42 | CA_ITS ---
FINAL REPORT TECHNIQUE: Grayscale, color Doppler and duplex Doppler ultrasound of the kidneys, aorta and renal arteries was performed. Multiple velocities were measured. 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 FINDINGS: Aorta velocity: 99.2 cm/sec Right kidney: 10.2 cm. No evidence of hydronephrosis or mass. Right intrarenal RI: 0.63 Right renal artery velocity: 195 cm/sec. Right RAR (Renal artery-Aortic Ratio): 1.97 Left Kidney: 11.3 cm. There is no hydronephrosis. There is an anechoic structure measuring 3.9 cm in the left kidney consistent with a benign cyst. Left intrarenal RI: 0.59 Left renal artery velocity: 123 cm/sec. Left RAR (Renal Artery-Aortic Ratio): 1.24 IMPRESSION: No evidence of significant renal artery stenosis. CT angiogram or postcontrast MR angiogram would be more sensitive for evaluation of possible renal artery stenosis. Reviewed, Interpreted and Dictated by Jaden Darby MD Transcribed by Stephany Hunter Authenticated by Jaden Darby MD on 01/08/2022 10:30:26 AM [facility]
== END ==
PROVIDERS: PCP Internal Medicine Adolescent Medicine; Visit Provider Internal Medicine Cardiovascular Disease
DX: I10 Essential (primary) hypertension (principal); I47.2 Ventricular tachycardia
CPT/HCPCS: 93976

== ENCOUNTER → 2022-01-09 07:08 | Outpatient (CLI) | payer OTHER, SELFPAY ==
--- NOTE | 2022-01-09 07:30 | CA_ITS ---
APPROVED REPORT EXAM: Comprehensive 2D, Doppler, and color-flow Echocardiogram Tree Faller: Monica Harris RDCS Ht: 5 ft 5 in Wt: 142lbs BSA: 1.71 BP: 189/117 mmHg Indications: CAD,CMP,ICD 2D Dimensions LVOT 2.08 cm (M/F) 1.5-2.5 M-Mode Dimensions RVDd 2.47 cm (0.9-2.6) LA Diam 3.32 cm (1.9-4.0) LVDd 6.35 cm (3.5-5.7) Ao Diam 3.58 cm (2.0-3.7) LVDs 5.47 cm (3.5-5.7) IVSd 0.84 cm (0.6-1.1) PWd 0.91 cm (0.6-1.1) EF (Teich) 28.90% FS 13.90% EDV (Teich) 204.80 mL ESV (Teich) 145.60 mL LV Diastology E Decel Time 150.00 (160-240 msec) E/A Ratio 0.3 MED E' 2.70 (< 7 cm/sec) E'/MED E' Ratio 6.41 (>14) LAT E' 5.40 (<10 cm/sec) E/LAT E' Ratio 3.20 (>14) Mitral Valve MV E Max Issac. 17.00 (40-130 cm/s) MV A Velocity 61.00 (40-130 cm/s) E/A Ratio 0.28 MV Decel. Time 150.00 (160-240 ms) MV PHT 44.00 ms Left Ventricle Left atrium is mildly enlarged, left ventricle is mildly dilated, mild concentric left ventricular hypertrophy, estimated ejection fraction 25 to 30%, there is marked hypokinesis involving the inferior basal and posterolateral wall. Diastolic parameters are inconclusive. Right Ventricle Right atrium and right ventricle are normal size and contractility, there is an AICD lead seen in right ventricle. Aortic Valve Aortic valve is minimally thickened and fibrosed there is no aortic stenosis or aortic insufficiency. Mitral Valve Mitral valve leaflets are minimally thickened, there is mild mitral regurgitation. Tricuspid Valve Tricuspid valve is grossly normal, there is mild tricuspid regurgitation, tricuspid regurgitation jet velocity is inadequate for calculation of the right ventricular systolic pressure. Pulmonic Valve Pulmonic valve is poorly visualized. Great Vessels Aortic root is normal size. Inferior vena cava is poorly visualized. Pericardium No significant pericardial effusion noted. Conclusion 1. Mildly enlarged left atrium, mildly dilated left ventricle, estimated ejection fraction 25 to 30% with multiple segmental wall motion abnormality described above, diastolic parameters are inconclusive. 2. Mild mitral and tricuspid regurgitation. 3. No significant pericardial effusion. 4. Inferior vena cava is poorly visualized. Electronically signed by : Yasmany Kim MD 01/09/2022 11:32:47
== END ==
PROVIDERS: PCP Internal Medicine Adolescent Medicine; Visit Provider Internal Medicine Cardiovascular Disease
DX: I47.2 Ventricular tachycardia (principal)
CPT/HCPCS: 93306

== ENCOUNTER → 2022-01-13 11:45 | Outpatient (CLI) | payer OTHER, SELFPAY ==
--- NOTE | 2022-01-13 | CA_ITS ---
APPROVED REPORT Exam: Pharmacologic Technologist: Birgit Brennan, Ht: 5 ft 4 in Wt: 139 lbs BSA: 1.68 m2 HR: 70 bpm BP: 133/83 mmHg Indications: CAD Medical History Medications: Aspirin,,,,, Metoprolol,,,,, Losartan,,,,, Pantoprazole,,,,, HCTZ,,,,, Ropinirole,,,,, CloPIdogrel,,,,, Magnesium,,,,, Imdur,,,,, MuPirocin,,,,, EMpagliflozin,,,,, SuLFAMETHOXAZole-Trimethoprim,,,,, Stress Test Details Test: LEXISCAN HR Resting HR: 70 bpm Max Heart Rate (APMHR): 164.773537 bpm Max HR Achieved: 76 bpm Target HR (85% APMHR): 139.918284 bpm % of APMHR: 46.34 Recovery HR: 70 bpm BP Resting BP: 133/83 mmHg Max BP: 141/73 mmHg Recovery BP: 141.0/73.0 mmHg ECG Resting ECG: Atrial paced rhythm, V5 IVCD, marked T wave abns Clinical Exercise duration: 04:00 min Highest Stage Achieved: Exercise capacity: 1.0 METs Stress ECG Conclusion Symptoms: Mild chest tightness, brief SOA, flushed. Arrhythmias/Ectopy: None ST-T Changes: Exaggeration of baseline abns. Conclusion: Non-diagnostic Lexiscan stress. Myoview images reported separately Test Summary REST . . . . . . . Sitting REST 03:56 . . 70 . 133/ 83 . . Stage 1 01:00 . . 70 . . . . Stage 2 01:00 . . 70 . . . . Stage 3 01:00 . . 70 . 115/ 68 . . Stage 4 01:00 . . 70 . 105/ 63 . Stop exercise at 04:00 RECOVERY 01:00 . . 70 . 109/ 71 . . RECOVERY 02:00 . . 70 . 116/ 68 . . RECOVERY 03:00 . . 70 . 141/ 73 . . RECOVERY 03:15 . . 70 . 141/ 73 . . Electronically signed by : Yasmany Kim MD 01/14/2022 06:37:35
--- NOTE | 2022-01-13 11:46 | NM_ITS ---
APPROVED REPORT Exam: Nuclear Stress Test Indication: Palpitations, CAD, HTN, Family history, Former tobacco use, Syncope, Fatigue, Pacemaker Patient Location: Outpatient Stress Tech: Birgit Brennan NM Tech:Tracey Hidalgo, ARRT, RT (R)(N) Ht: 5 ft 4 in Wt: 134 lbs Bra Size: C HR: 70 bpm BP: 133/83 mmHg BSA: 1.65 m2 BMI: 22.9 History: Palpitations, CAD, HTN, Family history, Former tobacco use, Syncope, Fatigue, Pacemaker Procedure: Patient received a 0.4 mg of intravenous Lexiscan, resting heart rate 70 bpm, resting blood pressure 133/83 mmHg, with Lexiscan maximum heart rate achived was 76 bpm which is Less than 85 % of the maximum predicted heart rate and blood pressure was 141/73 mmHg. With Lexiscan, patient denied any complaint of chest pain. Electrocardiogram Resting electrocardiogram showed atrially paced rhythm with intraventricular conduction delay and nonspecific ST-T changes, with Lexiscan there is less than 1.[address] segment depression noted from the baseline EKG. The EKG portion of the Lexiscan is nondiagnostic. Cardiac Stress and Resting SPECT Images: Cardiac Stress and Resting SPECT images were obtained using technetium 99m Myoview 32.6 mCi stress and 10.38 mCi at rest. Gated SPECT for analysis of segmental wall motion and calculation of the ejection fraction also done. Cardiac stress and resting SPECT images showed a large area of fixed defect involving the inferior, posterior basal and inferoseptal wall in a fixed Consistent with extensive myocardial scarring without significant naun-infarct ischemia, computer derived ejection fraction is 25% with marked hypokinesis involving the inferior, posterior basal and inferoseptal wall. Right ventricle is mildly enlarged with normal contractility. Conclusion: 1. The EKG portion of the Lexiscan is nondiagnostic. 2. Scintigraphic evidence of extensive myocardial scarring involving the inferior, posterior basal and inferoseptal wall without significant naun-infarct ischemia, computer derived ejection fraction of 25% with segmental wall motion abnormalities described above, right ventricle is mildly enlarged with normal contractility. 3. Abnormal Lexiscan Myoview study. Electronically signed by : Yasmany Kim MD 01/14/2022 06:42:05
--- NOTE | 2022-01-13 13:26 | HMH.ITSHM ---
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 []ROPINIROLE MAGNESIUM HCTZ EVOLOCUMAB PANTOPRAZOLE MUPIROCIN MEOTPROLOL LOSARTAN ISOSORBIDE GENTAMICIN EMPAGLIFLOZIN CLOPIDOGREL ASA
== END ==
PROVIDERS: PCP Internal Medicine Adolescent Medicine; Visit Provider Internal Medicine Cardiovascular Disease
DX: I47.2 Ventricular tachycardia (principal)
CPT/HCPCS: 78452; 93017; A9502; J2785

== ENCOUNTER 2022-01-16 05:42 | Inpatient (IN) | payer OTHER, SELFPAY ==
[2022-01-16] VITALS (25 sets, daily range): BP systolic 101–152; BP diastolic 56–113; PULSE 70–155; RESP 12–22; TEMP 36.6–36.8; O2SAT 94–99; BMI 23.1
--- NOTE | 2022-01-16 05:41 | ECG_ITS ---
APPROVED REPORT Exam: Resting ECG HR:69 bpm ECG Measurements Heart Rate 69 AXES ME 164 P 165 QRSd 143 QRS -1 QT 411 T -84 QTc 431 Conclusion ELECTRONIC ATRIAL PACEMAKER ELECTRONIC VENTRICULAR PACEMAKER ABNORMAL RHYTHM ECG UNCONFIRMED REPORT Electronically signed by : William Hunter MD 01/22/2022 08:13:01
--- NOTE | 2022-01-16 05:43 | HMH.EDGENADL ---
ED Disposition Clinical Impression: Atrial fibrillation with rapid ventricular response Disposition: Admitted As Inpatient Condition on Discharge: Fair Referrals: Jabari Goetz MD [Primary Care Provider] - - Critical Care Critical Care Time: Yes Attestation: On , the high probability of a clinically significant, sudden or life threatening deterioration of the following system(s) required my full and direct attention, intervention and personal management. The time I documented below is in addition to time spent performing reported procedures but includes the following listed in this critical care notation. Total Critical Care Time: 30 Vital system(s) involved:: Circulatory Failure My critical care processes included: Assessment & monitoring of V/S, Initial and Re-exams, Data Review/Interpretation, Coordinating Care, Medication Orders and management, Documentation Medical Decision Making - Medical Records Medical records reviewed: Yes: I reviewed the patient's medical records. - Reed Inquiry Pt receiving controlled substance: No Vital Signs: 01/16/22 05:41 Temperature 98.2 F Temperature Source Oral Pulse Rate [Right] 155 H Respiratory Rate 19 Blood Pressure [Right Arm] 152/113 H Blood Pressure Mean [Right Arm] 126 Blood Pressure Source [Right Arm] Automatic Cuff 02 Sat by Pulse Oximetry 99 Oxygen Delivery Method Room Air - Lab Data Lab Results 01/16/22 05:47: WBC 10.6, RBC 4.63, Hgb 14.1, Hct 41.5, MCV 89.6, MCH 30.5, MCHC 34.0, RDW 13.9, Plt Count 341, MPV 8.1, Neut % (Auto) 80.1 H, Lymph % (Auto) 14.3, Russell % (Auto) 3.0, Eos % (Auto) 1.2, Baso % (Auto) 1.5, Neut # (Auto) 8.5 H, Lymph # (Auto) 1.5, Russell # (Auto) 0.3, Eos # (Auto) 0.1, Baso # (Auto) 0.2 01/16/22 05:47: PT 10.3, INR 0.90 01/16/22 05:47: Sodium 138, Potassium 3.6, Chloride 102, Carbon Dioxide 27, Anion Gap 12.6, BUN 15, Creatinine 0.90, Estimated Creat Clear 67, Estimated GFR 65, Est GFR ( Amer) 78, Glucose 108 H, Calcium 9.3, Total Bilirubin 0.4, AST 33, ALT 26, Alkaline Phosphatase 101, Total Protein 7.8, Albumin 4.6, Globulin 3.2, Albumin/Globulin Ratio 1.4 Result diagrams: 01/16/22 05:47 01/16/22 05:47 Orders (Tests/Meds): ED MEDICATIONS Generic Name Dose Route Start Last Admin Trade Name Rejiq PRN Reason Stop Dose Admin Sodium Chloride 500 mls @ 999 mls/hr 01/16/22 06:00 01/16/22 05:58 Sod Chlor 0.9% 1000ml Bag IV 01/16/22 06:30 999 mls/hr .Q31M MARIA E Administration Diltiazem HCl 100 mg/ Sodium 100 mls @ 5 mls/hr 01/16/22 06:45 Chloride IV 02/15/22 06:44 .Q20H MARIA E Protocol Metoprolol Succinate 100 mg 01/16/22 09:00 01/16/22 06:13 Metoprolol Succinate Xl 100mg Tablet PO 02/15/22 08:59 100 mg DAILY MARIA E Administration Discontinued Medications Generic Name Dose Route Start Last Admin Trade Name Rejiq PRN Reason Stop Dose Admin Metoprolol Tartrate 5 mg 01/16/22 05:53 01/16/22 05:59 Metoprolol Tartrate 5mg/5ml Vial IV 01/16/22 05:54 5 mg ONCE ONE Administration Metoprolol Tartrate 5 mg 01/16/22 06:21 01/16/22 06:22 Metoprolol Tartrate 5mg/5ml Vial IV 01/16/22 06:22 5 mg ONCE ONE Administration ORDERS Category Date Time Status XR chest portable Stat Exams 01/16/22 05:55 Taken - ECG Data Tracing #1 I reviewed this ECG and interpreted as documented below: Atrial fibrillation with rapid ventricular response left bundle pattern rate of 135 QTC 390, history of atrial fibrillation, no evidence of acute ischemia abnormal EKG Medical Decision Narrative: 56-year-old female who presents with a history of A. fib and atrial fibrillation with rapid ventricular response tonight. She is not having chest pain at this time and is hemodynamically stable with a average rate in the 130s. She was given her expected morning home dose of p.o. metoprolol given 2 doses of 5 mg IV metoprolol spread out and by 15 minutes. This did not provide any significant rate
--- NOTE | 2022-01-16 05:55 | XR_ITS ---
PROCEDURE INFORMATION: Exam: XR Chest Exam date and time: 01/16/2022 6:14 AM Age: 56 years old Clinical indication: Other: Tachycardia; Prior surgery; Surgery type: Pacemaker/defibrillator around 5 years ago TECHNIQUE: Imaging protocol: XR of the chest. Views: 1 view. COMPARISON: CR CXR2V XR chest 2V 03/21/2018 12:26 PM FINDINGS: Tubes, catheters and devices: Cardiac rhythm maintenance device is in place. Lungs: Unremarkable. No consolidation. Pleural spaces: Unremarkable. No pleural effusion. No pneumothorax. Heart/Mediastinum: Unremarkable. No cardiomegaly. Bones/joints: Unremarkable. IMPRESSION: No acute cardiopulmonary abnormality
[2022-01-16 06:02] LABS: Basophils # 0.2 K/mm3 (0-0.2); Basophils % 1.5 % (0.1-2.0); Eosinophils # 0.1 K/mm3 (0.0-0.4); Eosinophils % 1.2 % (0.1-12.0); Hematocrit 41.5 % (37.0-47.0); Hemoglobin 14.1 g/dL (12.2-16.2); Lymphocytes # 1.5 K/mm3 (0.7-4.5); Lymphocytes % 14.3 % (10-50); Mean Corpuscular Hemoglobin 30.5 pg (27.0-31.2); Mean Corpuscular Volume 89.6 fl (81-99); Mean Platelet Volume 8.1 fl (7.4-10.4); Monocytes # 0.3 K/mm3 (0.1-1.0); Neutrophils # 8.5 K/mm3 (1.8-7.8); Neutrophils % 80.1 % (37.0-80.0); Platelet Count 341 K/mm3 (142-424); Red Blood Count 4.63 M/mm3 (4.20-5.40); Red Cell Distribution Width 13.9 % (11.5-17.5); White Blood Count 10.6 K/mm3 (4.8-10.8)
[2022-01-16 06:04] LABS: Chloride 102 mmol/L (98-107); Sodium 138 mmol/L (136-145)
[2022-01-16 06:05] LABS: Potassium 3.6 mmoL/L (3.5-5.1)
[2022-01-16 06:07] LABS: Alanine Aminotransferase 26 U/L (12-78); Albumin Level 4.6 g/dl (3.5-5.0); Albumin/Globulin Ratio 1.4 (1.1-1.8); Alkaline Phosphatase 101 U/L (38-126); Anion Gap 12.6 mEq/L (5-15); Aspartate Amino Transferase 33 U/L (14-36); Bilirubin,Total 0.4 mg/dl (0.2-1.3); Blood Urea Nitrogen 15 mg/dl (7-17); Carbon Dioxide 27 mmol/L (22.0-30.0); Creatinine Clearance Estimated 67 mL/min (50-200); Estimated Glomerular Filt Rate 65 ml/min (>60); GFR (African American) 78 ML/MIN (>60); Globulin 3.2 g/dL (1.3-3.2); Total Protein,Serum 7.8 g/dl (6.3-8.2)
[2022-01-16 06:08] LABS: Calcium 9.3 mg/dl (8.4-10.2); Glucose 108 mg/dl (74-100); Prothrombin Time 10.3 seconds (10.1-12.5)
--- NOTE | 2022-01-16 06:39 | PC.NURSE ---
Dr. Mohan paged
--- NOTE | 2022-01-16 06:40 | PC.NURSE ---
ISMAEL MCKEON speaking to Dr. Mohan
[2022-01-16 07:01] LABS: Coronavirus 19, PCR Not Detected (NotDetected); Influenza A, PCR Not Detected (NotDetected); Influenza B, PCR Not Detected (NotDetected)
--- NOTE | 2022-01-16 07:17 | PC.NURSE ---
House notified for bed assignment, no step-down beds on floor at this time. Pt will be boarding in ER at this time. She was given warm blanket, tv remote, and updated on POC
--- NOTE | 2022-01-16 07:24 | PC.NURSE ---
pt currently at 10mg/hr cardizem drip. pt increased to 15mg
--- NOTE | 2022-01-16 07:27 | PC.NURSE ---
airflight attendants supervisor called; patient is going to 219
--- NOTE | 2022-01-16 07:30 | PC.NURSE ---
housesmith stated pt is assigned to room 219, they are moving a pt out of that room and room will need to be cleaned.
--- NOTE | 2022-01-16 07:41 | ECG_ITS ---
APPROVED REPORT Exam: Resting ECG HR:135 bpm ECG Measurements Heart Rate 135 AXES QRSd 154 QRS 1 QT 311 T -88 QTc 390 Conclusion ATRIAL FLUTTER/TACHYCARDIA WITH RAPID VENTRICULAR RESPONSE LEFT BUNDLE BRANCH BLOCK [120+ ms QRS DURATION, 80+ ms Q/S IN V1/V2, 85+ ms R IN I/aVL/V5/V6] ABNORMAL ECG UNCONFIRMED REPORT Electronically signed by : William Hunter MD 01/22/2022 08:13:10
--- NOTE | 2022-01-16 08:09 | PC.NURSE ---
pt given breakfast tray
--- NOTE | 2022-01-16 08:18 | PC.NURSE ---
called cardiology to informed them pt will not be a scheduled appt today due to admission to hospital
--- NOTE | 2022-01-16 10:56 | PC.NURSE ---
call out to dr xavier regarding pt's hr and ?need for cont dilt drip
--- NOTE | 2022-01-16 11:08 | PC.NURSE ---
spoke with dr morenita v.o to consult cardiology, stop dilt drip, and give pt's am medications
--- NOTE | 2022-01-16 11:11 | PC.NURSE ---
notified greenhouse superintendent that Dr. Goetz was cardimaem drip stopped. [place] states pt will not need at step down bed, states they will arrange another bed for pt and notify us. ROSANNE Saldaña at updating pt on POC
--- NOTE | 2022-01-16 12:00 | PC.NURSE ---
pt eating lunch tray
--- NOTE | 2022-01-16 12:47 | PC.NURSE ---
pt resting in bed, states no needs at this time, pt reports has finished her sandwich and is okay at this time. will continue to monitor
--- NOTE | 2022-01-16 12:55 | PC.NURSE ---
Dr. Goetz at BS
--- NOTE | 2022-01-16 12:57 | PC.NURSE ---
second floor charge nurse called stating pt will be going to room 201, states room is being cleaned .
--- NOTE | 2022-01-16 13:00 | PC.NURSE ---
per Dr. Goetz- would like for pt to remain in ER instead of going to the floor to admit, states he will come back after clinic around 5:30pm to reassess pt and if pt is the same he will plan to d/c pt home. Does want cardiology to see pt.
--- NOTE | 2022-01-16 13:04 | PC.NURSE ---
sondra gunderson called back, notified of consult on pt
--- NOTE | 2022-01-16 13:07 | PC.NURSE ---
notified household manager per dr. xavier will plan to d/c pt later this afternoon from the ER second floor staff made aware also
--- NOTE | 2022-01-16 13:19 | PC.NURSE ---
pt ambulated to restroom and back to room independently at this time, no difficulties noted.
--- NOTE | 2022-01-16 13:22 | HMH.HPDC ---
General - General Admission date:: 01/16/22 Discharge date: 01/16/22 *Admission Date: 01/16/22 *Chief complaint: tachycardia *History of present illness: Ms. Ding is a pleasant 56-year-old female well-known to our office who presented to the ER with onset of A. fib today. 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 Recent admission after her pacemaker cardioverted her at home. Has been taking her meds as ordered. On presentation to the ER she states that she was lying in bed earlier today when she slid down in the bed and had sudden onset of a rapid heart rate. She states that she felt her heart racing. The patient denied having any chest pain or pressure. Complains of minimal shortness of breath. Denies fever, chills, nausea, vomiting, diarrhea, or orthopnea. On initial work-up, found to be in A. fib with RVR. Emergency room began IV metoprolol but had no good response. Ended up starting her on a diltiazem drip with eventual conversion of her heart rate to a paced rhythm this morning. Cardiology was consulted in the ER to assist with any further adjustment to medication. Admitted to medicine for further management. [facility] History I have reviewed the patient's past medical history: Yes Medical History: Reports:: Arrhythmia, Chronic Obstructive Pulmonary Disease (COPD), Coronary Artery Disease, Hyperlipidemia, Hypertension, Internal Pacemaker, Kidney Stones, Myocardial Infarction, Peripheral Artery Disease, Renal Disease Denies:: Cancer, Diabetes Mellitus Type 1, Diabetes Mellitus Type 2, MRSA, Seizures *Have you ever received a pneumonia vaccine?: Yes *Have you received a flu vaccine this season?: Yes Other Surgeries: Yes: No Previous Surgery, Cardiac Catheterization, Colonoscopy, Coronary Stent, Pacemaker, Other Amputation: No Fractures: No - *Social History Smoking Status: Former smoker Tobacco Type: cigarettes # Packs/Day (cigarettes): 1 Alcohol Intake: never Alcohol Intake Frequency:: other Substance Use Type: denies use *Occupational Status:: student Housing: house Household Members: family *Travel in the last 8 weeks: None Family Hx:: Other Review of Systems - Review of Systems Review of systems:: pertinent systems reviewed and negative unless documented below (14 point review of systems performed, pertinent positives and negatives as per HPI) Exam Vital signs and Labs for Last 24 Hours: Temp Pulse Resp BP Pulse Ox 98.2 F 70 17 136/80 97 01/16/22 05:41 01/16/22 12:45 01/16/22 12:45 01/16/22 12:45 01/16/22 12:45 Laboratory Results - last 24 hr 01/16/22 05:47: WBC 10.6, RBC 4.63, Hgb 14.1, Hct 41.5, MCV 89.6, MCH 30.5, MCHC 34.0, RDW 13.9, Plt Count 341, MPV 8.1, Neut % (Auto) 80.1 H, Lymph % (Auto) 14.3, Barton % (Auto) 3.0, Eos % (Auto) 1.2, Baso % (Auto) 1.5, Neut # (Auto) 8.5 H, Lymph # (Auto) 1.5, Barton # (Auto) 0.3, Eos # (Auto) 0.1, Baso # (Auto) 0.2 01/16/22 05:47: PT 10.3, INR 0.90 01/16/22 05:47: Sodium 138, Potassium 3.6, Chloride 102, Carbon Dioxide 27, Anion Gap 12.6, BUN 15, Creatinine 0.90, Estimated Creat Clear 67, Estimated GFR 65, Est GFR ( Amer) 78, Glucose 108 H, Calcium 9.3, Total Bilirubin 0.4, AST 33, ALT 26, Alkaline Phosphatase 101, Total Protein 7.8, Albumin 4.6, Globulin 3.2, Albumin/Globulin Ratio 1.4 01/16/22 06:50: SARS-CoV-2 (PCR) Not detected, Influenza A Untype (PCR) Not detected, Influenza Type B (PCR) Not detected I & O for Last 24 hours: Intake & Output 01/13/22 01/14/22 01/15/22 01/16/22 23:59 23:59 23:59 23:59 Weight 61.235 kg - Constitutional no acute distress, chronically ill appearing Comments: appears older than stated age. - *Routine HEENT Exam Head: Present: normocephalic Eye: Present: EOMI, PERRL ENT: Present: mucous membranes moist - *Routine Neck Exam Present: supple. Absent: lymphadenopathy - *Routine Respiratory
--- NOTE | 2022-01-16 13:39 | HMH.PHAVTE ---
[facility] Pharmacy VTE Monitoring - Patient Demographics Admission date: 01/16/22 Report Date: 01/16/22 Time: 13:39 Allergies/Adverse Reactions: Patient Allergies atorvastatin [From LIPITOR] Allergy (Intermediate, Verified 01/05/22 09:46) CAN'T WALK ezetimibe [From Zetia] Allergy (Intermediate, Verified 01/05/22 09:46) myalgias hydrocodone [HYDROCODONE] Allergy (Intermediate, Verified 01/05/22 09:46) ITCHING, N/V simvastatin [From Zocor] Allergy (Intermediate, Verified 01/05/22 09:46) myalgia codeine [CODEINE] Allergy (Mild, Verified 01/05/22 09:46) ITCHING rosuvastatin [From Crestor] Adverse Reaction (Severe, Verified 01/05/22 09:46) Height: 1.63 m Weight: 61.235 kg Patient Problems: Current Active Problems (Last Updated 06/08/19 @ 10:32 by Tsering Adams RN) Atrial fibrillation with rapid ventricular response (Acute) - VTE Risk Labs: VTE Related Lab Results Hgb 14.1 g/dL (12.2-16.2) 01/16/22 05:47 Hct 41.5 % (37.0-47.0) 01/16/22 05:47 Plt Count 341 K/mm3 (142-424) 01/16/22 05:47 PT 10.3 seconds (10.1-12.5) 01/16/22 05:47 INR 0.90 (0.9-1.1) 01/16/22 05:47 BUN 15 mg/dl (7-17) 01/16/22 05:47 Creatinine 0.90 mg/dl (0.52-1.04) 01/16/22 05:47 Estimated Creat Clear 67 mL/min (50-200) 01/16/22 05:47 Clinical Trial Participant: No - Prophylaxis VTE Prophylaxis Ordered?: Yes Types of VTE Prophylaxis: TEDS Knee High, Pharmacological Pharmacologic Type: Enoxaparin
--- NOTE | 2022-01-16 13:59 | HMH.CNCARD ---
History of Present Illness Consult date: 01/16/22 Requesting physician: Robert Parekh Consult reason: atrial fibrillation Chief complaint: afib History of present illness: This is a 56-year-old white female who presented to the emergency department with complaints of atrial fibrillation. The patient states that she was lying in bed early this morning and she slid down in the bed and had sudden onset of a rapid heart rate. She states that she felt her heart racing. The patient denied having any chest pain or pressure. She states that when her heart beats fast she is somewhat short of breath. She denies any fever, chills, nausea, vomiting, diarrhea, PND or orthopnea. The patient states that she had been in the emergency department recently because she got shocked by her defibrillator. She had not been compliant with her medications at that point but states since last week she has been taking her metoprolol on a regular basis. Today she was found to be in atrial fibrillation/flutter with RVR. When she got here to the emergency department her heart rate was in the 130s. She was given IV metoprolol and then started on a diltiazem drip. The patient did convert to sinus rhythm and the diltiazem has been stopped. The patient does have cardiomyopathy with an ejection fraction of 25%. This is a black box warning/contraindication for diltiazem so she cannot be continued on this medication. She denies any fever, chills, nausea, vomiting, diarrhea, PND or orthopnea. [facility] History I have reviewed the patient's past medical history: Yes Medical History: Reports:: Arrhythmia, Chronic Obstructive Pulmonary Disease (COPD), Coronary Artery Disease, Hyperlipidemia, Hypertension, Internal Pacemaker, Kidney Stones, Myocardial Infarction, Peripheral Artery Disease, Renal Disease Denies:: Cancer, Diabetes Mellitus Type 1, Diabetes Mellitus Type 2, MRSA, Seizures *Have you ever received a pneumonia vaccine?: Yes *Have you received a flu vaccine this season?: Yes Other Surgeries: Yes: No Previous Surgery, Cardiac Catheterization, Colonoscopy, Coronary Stent, Pacemaker, Other Amputation: No Fractures: No - *Social History Smoking Status: Former smoker Tobacco Type: cigarettes # Packs/Day (cigarettes): 1 Alcohol Intake: never Alcohol Intake Frequency:: other Substance Use Type: denies use *Occupational Status:: student Housing: house Household Members: family *Travel in the last 8 weeks: None Family Hx:: Other Meds Home Medications Medication Instructions Recorded Confirmed Type magnesium 200 mg tablet 200 mg PO DAILY 07/07/18 01/16/22 History Aspirin [Aspirin 81mg EC Tab] 81 mg PO DAILY 12/15/19 01/16/22 History Isosorbide Mononitrate [Isosorbide 120 mg PO DAILY 09/02/21 01/16/22 History Mononitrate ER] Pantoprazole Sodium 40 mg PO DAILY 09/02/21 01/16/22 History hydroCHLOROthiazide 12.5 mg PO DAILY 09/02/21 01/16/22 History [Hydrochlorothiazide] Clopidogrel Bisulfate [Plavix] 75 mg PO DAILY 01/02/22 01/16/22 History Empagliflozin [Jardiance] 10 mg PO DAILY 01/02/22 01/16/22 History Gentamicin Sulfate 1 applic TOPICAL BID 01/02/22 01/16/22 History Losartan Potassium [Cozaar 100mg 100 mg PO DAILY 01/02/22 01/16/22 History Tablets] Mupirocin [Centany] 1 applic TOPICAL BID 01/02/22 01/16/22 History Apixaban [Eliquis 5mg Tablet] 5 mg PO BID 30 Days #60 tab 01/16/22 Rx Evolocumab [Repatha SureClick] 140 ml SQ QOW 01/16/22 01/16/22 History Metoprolol Succinate [Metoprolol 150 mg PO BID 30 Days #90 tab 01/16/22 Rx Succinate 100mg Tablet*] Ropinirole HCl 1 mg PO HS 01/16/22 01/16/22 History Allergies Allergy/AdvReac Type Severity Reaction Status Date / Time atorvastatin [From LIPITOR] Allergy Intermediate CAN'T Verified 01/05/22 09:46 WALK ezetimibe [From Zetia] Allergy Intermediate myalgias Verified 01/05/22 09:46 hydrocodone [HYDROCODONE] Allergy Intermediate ITCHING, Verified 01/05/22 09:46 N/V simvastatin [From Zocor]
== END 2022-01-16 18:41 | disposition home or self-care (01) | DRG 309 ==
LOC: ER 07:03 → 2ND 13:32
PROVIDERS: Admitting Provider Internal Medicine Adolescent Medicine; Emergency Provider Student in an Organized Health Care Education/Training Program; PCP Internal Medicine Adolescent Medicine; Visit Provider Internal Medicine Adolescent Medicine
DX: I48.91 Unspecified atrial fibrillation (principal); I50.22 Chronic systolic (congestive) heart failure; Z20.822 Contact with and (suspected) exposure to COVID-19; I11.0 Hypertensive heart disease with heart failure; I25.10 Atherosclerotic heart disease of native coronary artery without angina pectoris; Z95.0 Presence of cardiac pacemaker; J44.9 Chronic obstructive pulmonary disease, unspecified; E78.5 Hyperlipidemia, unspecified; Z79.01 Long term (current) use of anticoagulants; Z79.899 Other long term (current) drug therapy; Z88.8 Allergy status to other drugs, medicaments and biological substances; I73.9 Peripheral vascular disease, unspecified; Z87.891 Personal history of nicotine dependence; Z95.5 Presence of coronary angioplasty implant and graft
CPT/HCPCS: 71045; 80053; 85025; 85610; 93005; 93041; 96375; 99285; C9803; U0003; U0005

== ENCOUNTER → 2022-04-08 15:40 | Outpatient (CLI) | payer OTHER, SELFPAY ==
[2022-04-08 16:06] LABS: Basophils # 0.2 K/mm3 (0-0.2); Basophils % 4.2 % (0.1-2.0); Eosinophils # 0.2 K/mm3 (0.0-0.4); Hematocrit 39.6 % (37.0-47.0); Hemoglobin 12.6 g/dL (12.2-16.2); Lymphocytes # 1.7 K/mm3 (0.7-4.5); Lymphocytes % 31.4 % (10-50); Mean Corpuscular HGB Conc 31.9 g/dL (31.8-35.4); Mean Corpuscular Hemoglobin 30.5 pg (27.0-31.2); Mean Corpuscular Volume 95.7 fl (81-99); Mean Platelet Volume 7.8 fl (7.4-10.4); Monocytes # 0.3 K/mm3 (0.1-1.0); Monocytes % 5.3 % (1.7-9.3); Neutrophils # 3.1 K/mm3 (1.8-7.8); Neutrophils % 56.1 % (37.0-80.0); Platelet Count 289 K/mm3 (142-424); Red Blood Count 4.13 M/mm3 (4.20-5.40); Red Cell Distribution Width 14.6 % (11.5-17.5); White Blood Count 5.5 K/mm3 (4.8-10.8)
[2022-04-08 16:52] LABS: Chloride 104 mmol/L (98-107); Sodium 136 mmol/L (136-145)
[2022-04-08 16:53] LABS: Potassium 4.3 mmoL/L (3.5-5.1)
[2022-04-08 16:55] LABS: Alanine Aminotransferase 25 U/L (12-78); Albumin Level 4.1 g/dl (3.5-5.0); Alkaline Phosphatase 63 U/L (38-126); Anion Gap 9.3 mEq/L (5-15); Aspartate Amino Transferase 30 U/L (14-36); Bilirubin,Direct 0.1 mg/dl (0.0-0.4); Bilirubin,Indirect 0.4 mg/dL (0.0-0.9); Bilirubin,Total 0.5 mg/dl (0.2-1.3); Bilirubin,Unconjugated 0.4 mg/dL (0.0-1.1); Blood Urea Nitrogen 12 mg/dl (7-17); Carbon Dioxide 27 mmol/L (22.0-30.0); Cholesterol 166 mg/dl (140-200); Estimated Glomerular Filt Rate 57 ml/min (>60); GFR (African American) 69 ML/MIN (>60); Total Protein,Serum 6.5 g/dl (6.3-8.2)
[2022-04-08 16:56] LABS: Chol/HDL Ratio 4.6 (1-3.5); HDL Cholesterol 36 mg/dl (40-60); Magnesium 1.9 mg/dl (1.6-2.3)
[2022-04-08 17:01] LABS: Glucose 96 mg/dl (74-100)
[2022-04-08 17:02] LABS: Calcium 9.5 mg/dl (8.4-10.2)
[2022-04-08 17:07] LABS: Direct LDL Cholesterol 55.08 mg/dL (100-129); Triglycerides 591 mg/dl (30-150)
[2022-04-08 17:12] LABS: Free T4 (Free Thyroxine) 0.88 ng/dl (0.78-2.19)
[2022-04-08 17:27] LABS: Thyroid Stimulating Hormone 0.84 uIU/mL (0.465-4.68)
== END ==
PROVIDERS: PCP Internal Medicine Adolescent Medicine; Visit Provider Internal Medicine
DX: I25.10 Atherosclerotic heart disease of native coronary artery without angina pectoris (principal); I11.0 Hypertensive heart disease with heart failure; I50.20 Unspecified systolic (congestive) heart failure; I47.2 Ventricular tachycardia; E78.5 Hyperlipidemia, unspecified; I70.1 Atherosclerosis of renal artery; I77.9 Disorder of arteries and arterioles, unspecified; G25.81 Restless legs syndrome; Z95.810 Presence of automatic (implantable) cardiac defibrillator
CPT/HCPCS: 36415; 80048; 80061; 80076; 83735; 84439; 84443; 85025

== ENCOUNTER → 2022-04-16 12:48 | Outpatient (CLI) | payer OTHER, SELFPAY ==
--- NOTE | 2022-04-16 12:49 | MM_ITS ---
PROCEDURE INFORMATION: Exam: Bilateral Screening 3D Mammography Exam date and time: 04/16/2022 12:59 PM Age: 56 years old Clinical indication: Screening examination TECHNIQUE: Imaging protocol: Bilateral Screening tomosynthesis and 2D mammography including computer-aided detection (CAD) when performed. COMPARISON: DMSB DIG MAMM-SCREEN RUPERTO 08/18/2016 9:16 AM FINDINGS: MAMMOGRAPHY: Breast composition: The breasts are heterogeneously dense, which may obscure small masses. Mass: None. Architectural distortion: None. Calcifications: No suspicious calcifications. Asymmetric density: None. Skin thickening: None. Axillary adenopathy: None. IMPRESSION: No mammographic evidence of malignancy. Annual screening is recommended unless otherwise clinically indicated. ASSESSMENT: BI-RADS Category 1: Negative
== END ==
PROVIDERS: PCP Internal Medicine Adolescent Medicine; Visit Provider Internal Medicine Adolescent Medicine
DX: Z12.31 Encounter for screening mammogram for malignant neoplasm of breast (principal)
CPT/HCPCS: 77063; 77067

== ENCOUNTER → 2023-01-25 11:37 | Outpatient (CLI) | payer OTHER, SELFPAY ==
[2023-01-25 12:56] LABS: Basophils % 0.4 % (0.1-2.0); Eosinophils # 0.2 K/mm3 (0.0-0.4); Eosinophils % 2.6 % (0.1-12.0); Hematocrit 43.2 % (37.0-47.0); Hemoglobin 14.3 g/dL (12.2-16.2); Lymphocytes # 1.9 K/mm3 (0.7-4.5); Mean Corpuscular HGB Conc 33.1 g/dL (31.8-35.4); Mean Corpuscular Hemoglobin 29.4 pg (27.0-31.2); Mean Corpuscular Volume 88.7 fl (81-99); Mean Platelet Volume 8.1 fl (7.4-10.4); Monocytes # 0.4 K/mm3 (0.1-1.0); Monocytes % 5.9 % (1.7-9.3); Neutrophils % 61.1 % (37.0-80.0); Platelet Count 352 K/mm3 (142-424); Red Blood Count 4.87 M/mm3 (4.20-5.40); Red Cell Distribution Width 14.2 % (11.5-17.5); White Blood Count 6.5 K/mm3 (4.8-10.8)
[2023-01-25 13:10] LABS: Chloride 102 mmol/L (98-107); Potassium 4.5 mmoL/L (3.5-5.1); Sodium 139 mmol/L (136-145)
[2023-01-25 13:12] LABS: Bilirubin,Unconjugated 0.6 mg/dL (0.0-1.1); Blood Urea Nitrogen 14 mg/dl (7-17); Estimated Glomerular Filt Rate 74 ml/min (>60); GFR (African American) 89 ML/MIN (>60)
[2023-01-25 13:13] LABS: Alanine Aminotransferase 25 U/L (12-78); Albumin Level 4.5 g/dl (3.5-5.0); Alkaline Phosphatase 93 U/L (38-126); Anion Gap 14.5 mEq/L (5-15); Aspartate Amino Transferase 29 U/L (14-36); Bilirubin,Direct 0.1 mg/dl (0.0-0.4); Bilirubin,Indirect 0.6 mg/dL (0.0-0.9); Bilirubin,Total 0.7 mg/dl (0.2-1.3); Calcium 9.5 mg/dl (8.4-10.2); Carbon Dioxide 27 mmol/L (22.0-30.0); Chol/HDL Ratio 8.4 (1-3.5); Cholesterol 276 mg/dl (140-200); Glucose 92 mg/dl (74-100); HDL Cholesterol 33 mg/dl (40-60); Total Protein,Serum 7.5 g/dl (6.3-8.2)
[2023-01-25 13:24] LABS: Direct LDL Cholesterol 109.38 mg/dL (100-129)
[2023-01-25 13:30] LABS: Free T4 (Free Thyroxine) 1.13 ng/dl (0.78-2.19)
[2023-01-25 13:31] LABS: Triglycerides 644 mg/dl (30-150)
[2023-01-25 13:44] LABS: Thyroid Stimulating Hormone 1.43 uIU/mL (0.465-4.68)
== END ==
PROVIDERS: PCP Internal Medicine Adolescent Medicine; Visit Provider Nurse Practitioner
DX: R06.00 Dyspnea, unspecified (principal); R00.2 Palpitations; I25.118 Atherosclerotic heart disease of native coronary artery with other forms of angina pectoris; I11.0 Hypertensive heart disease with heart failure; I50.22 Chronic systolic (congestive) heart failure; E78.2 Mixed hyperlipidemia; I47.2 Ventricular tachycardia; I48.91 Unspecified atrial fibrillation; I70.1 Atherosclerosis of renal artery; I77.9 Disorder of arteries and arterioles, unspecified; L03.116 Cellulitis of left lower limb; B95.62 Methicillin resistant Staphylococcus aureus infection as the cause of diseases classified elsewhere; Z87.891 Personal history of nicotine dependence; Z95.5 Presence of coronary angioplasty implant and graft
CPT/HCPCS: 36415; 80048; 80061; 80076; 83735; 84439; 84443; 85025

== ENCOUNTER → 2023-07-05 12:57 | Outpatient (CLI) | payer OTHER, SELFPAY ==
--- NOTE | 2023-07-05 13:13 | CA_ITS ---
APPROVED REPORT EXAM: Comprehensive 2D, Doppler, and color-flow Echocardiogram Dry Starch Supervisor: Krista Astudillo, RT(R) Ht: 5 ft 4 in Wt: 154lbs BSA: 1.75 BP: 115/74 mmHg Indications: CM, pre op for hyperbaric O2 treatment, HTN, ex smoker, palpitations, HTN, SOB, AICD, CHF 2D Dimensions LVOT 2.34 cm (M/F) 1.5-2.5 LVEF (Figueroa's) 26.10 % F: 54 - 74 LV Volume 166.30 mL F: 46 - 106 LV Volume Index 95.03 mL/m2 F: 29 - 61 LA Volume 38.70 mL LA Volume Index 22.11 mL/m2 (M/F) 16-34 M-Mode Dimensions RVDd 2.13 cm (0.9-2.6) LA Diam 3.27 cm (1.9-4.0) LVDd 6.87 cm (3.5-5.7) Ao Diam 3.03 cm (2.0-3.7) LVDs 5.71 cm (3.5-5.7) IVSd 0.92 cm (0.6-1.1) PWd 0.84 cm (0.6-1.1) EF (Teich) 34.40% FS 16.90% EDV (Teich) 244.80 mL TAPSE 1.49 (<1.7) ESV (Teich) 160.70 mL LV Diastology E Decel Time 163.00 (160-240 msec) E/A Ratio 0.4 Mitral Valve MV E Max Issac. 32.00 (40-130 cm/s) MV A Velocity 85.00 (40-130 cm/s) E/A Ratio 0.38 MV Decel. Time 163.00 (160-240 ms) MV PHT 48.00 ms Left Ventricle The left ventricle is normal size. Left ventricular systolic function is severely decreased. There is increased LV wall thickness (IVSD 1.5 cm). There is severe global hypokinesis. The basal inferior and inferoseptal LV magana are nearly akinetic. Diastolic function is indeterminate. LVEF is 25-30%. Right Ventricle The right ventricle is normal size. The right ventricular systolic function is normal. A device lead is noted in the right ventricle. Atria The left atrium size is normal. The right atrium size is normal. There is no Doppler evidence of interatrial shunt. Aortic Valve The aortic valve is mildly thickened. There is no aortic valvular stenosis. No aortic regurgitation is present. Mitral Valve The mitral valve leaflets are mildly thickened. Mild posterior leaflet prolapse is present. No evidence of mitral valve stenosis. Mild mitral regurgitation. Tricuspid Valve The tricuspid valve leaflets are thin and pliable. Mild tricuspid regurgitation. RVSP is normal. Pulmonic Valve The pulmonary valve is normal in structure. Trace pulmonic regurgitation. Great Vessels The aortic root is normal in size. The ascending aorta is normal in size. IVC is normal in size and collapses >50% with inspiration. Pericardium There is no pericardial effusion. Other Information Study Quality: Fair Conclusion Severely reduced LV systolic function (LVEF 25-30%) Markedly thickened LV wall thickness (IVSd 1.5 cm) Mild posterior MV leaflet prolapse Mild MR, mild TR Compared to prior study from 2021, there are no significant changes noted. Due to severely reduced LV systolic function and markedly increased LV wall thickness, cardiac MRI (HCM protocol) is recommended, if clinically indicated and if both the PPM device and its leads are all MRI-conditional. Electronically signed by : Cecilia Finnegan MD 07/07/2023 23:13:40
== END ==
PROVIDERS: PCP Nurse Practitioner Family; Visit Provider Nurse Practitioner Family
DX: R06.00 Dyspnea, unspecified (principal); R00.2 Palpitations; I25.10 Atherosclerotic heart disease of native coronary artery without angina pectoris; I50.20 Unspecified systolic (congestive) heart failure; E78.5 Hyperlipidemia, unspecified; B95.62 Methicillin resistant Staphylococcus aureus infection as the cause of diseases classified elsewhere; I70.1 Atherosclerosis of renal artery; I77.9 Disorder of arteries and arterioles, unspecified; L03.116 Cellulitis of left lower limb; S98.139A Complete traumatic amputation of one unspecified lesser toe, initial encounter; Z87.891 Personal history of nicotine dependence; Z95.5 Presence of coronary angioplasty implant and graft; I47.29 Other ventricular tachycardia
CPT/HCPCS: 93306

== ENCOUNTER 2024-07-06 11:37 | Outpatient (CLI) | payer OTHER, SELFPAY ==
[2024-07-06 11:59] LABS: Basophils # 0.1 K/mm3 (0-0.2); Eosinophils # 0.2 K/mm3 (0.0-0.4); Eosinophils % 2.2 % (0.1-12.0); Hematocrit 42.8 % (37.0-47.0); Lymphocytes # 1.7 K/mm3 (0.7-4.5); Mean Corpuscular HGB Conc 35.1 g/dL (31.8-35.4); Mean Corpuscular Hemoglobin 31.2 pg (27.0-31.2); Mean Corpuscular Volume 88.8 fl (81-99); Mean Platelet Volume 8.2 fl (7.4-10.4); Monocytes # 0.4 K/mm3 (0.1-1.0); Monocytes % 4.8 % (1.7-9.3); Neutrophils # 5.1 K/mm3 (1.8-7.8); Neutrophils % 69.2 % (37.0-80.0); Platelet Count 262 K/mm3 (142-424); Red Blood Count 4.82 M/mm3 (4.20-5.40); Red Cell Distribution Width 13.7 % (11.5-17.5); White Blood Count 7.3 K/mm3 (4.8-10.8)
[2024-07-06 12:24] LABS: Alanine Aminotransferase 24 U/L (12-78); Albumin Level 4.5 g/dl (3.5-5.0); Alkaline Phosphatase 77 U/L (38-126); Anion Gap 8.4 mEq/L (5-15); Aspartate Amino Transferase 38 U/L (14-36); Bilirubin,Direct 0.4 mg/dl (0.0-0.4); Bilirubin,Indirect 0.4 mg/dL (0.0-0.9); Bilirubin,Total 0.8 mg/dl (0.2-1.3); Bilirubin,Unconjugated 0.3 mg/dL (0.0-1.1); Blood Urea Nitrogen 14 mg/dl (7-17); Calcium 9.7 mg/dl (8.4-10.2); Carbon Dioxide 22 mmol/L (22.0-30.0); Chloride 108 mmol/L (98-107); Chol/HDL Ratio 3.2 (1-3.5); Cholesterol 125 mg/dl (140-200); Estimated Glomerular Filt Rate 74 ml/min (>60); GFR (African American) 89 ML/MIN (>60); Glucose 98 mg/dl (74-100); HDL Cholesterol 39 mg/dl (40-60); Magnesium 1.9 mg/dl (1.6-2.3); Potassium 4.4 mmoL/L (3.5-5.1); Sodium 134 mmol/L (136-145); Total Protein,Serum 7.2 g/dl (6.3-8.2); Triglycerides 327 mg/dl (30-150); VLDL Cholesterol 65 mg/dL (0-40)
[2024-07-06 12:35] LABS: Direct LDL Cholesterol 39.32 mg/dL (100-129)
[2024-07-06 12:40] LABS: Free T4 (Free Thyroxine) 1.26 ng/dl (0.78-2.19)
== END 2024-07-06 23:59 | disposition home or self-care (01) ==
LOC: LAB 11:38
PROVIDERS: PCP Nurse Practitioner Family; Visit Provider Nurse Practitioner Family
DX: I50.20 Unspecified systolic (congestive) heart failure (principal); I25.10 Atherosclerotic heart disease of native coronary artery without angina pectoris; I70.1 Atherosclerosis of renal artery; Z95.5 Presence of coronary angioplasty implant and graft; I77.9 Disorder of arteries and arterioles, unspecified; E78.2 Mixed hyperlipidemia; I10 Essential (primary) hypertension; Z87.891 Personal history of nicotine dependence
CPT/HCPCS: 36415; 80048; 80061; 80076; 83735; 84439; 84443; 85025

== ENCOUNTER 2024-09-04 15:55 | Outpatient (CLI) | payer OTHER, SELFPAY ==
[2024-09-04 17:33] LABS: Blood Urea Nitrogen 12 mg/dl (7-17); Calcium 9.8 mg/dl (8.4-10.2); Carbon Dioxide 27 mmol/L (22.0-30.0); Chloride 103 mmol/L (98-107); Estimated Glomerular Filt Rate 64 ml/min (>60); GFR (African American) 78 ML/MIN (>60); Glucose 82 mg/dl (74-100); Sodium 141 mmol/L (136-145)
== END 2024-09-04 23:59 | disposition home or self-care (01) ==
LOC: LAB 15:56
PROVIDERS: PCP Internal Medicine Adolescent Medicine; Visit Provider Nurse Practitioner Family
DX: I25.10 Atherosclerotic heart disease of native coronary artery without angina pectoris (principal); I10 Essential (primary) hypertension; E78.2 Mixed hyperlipidemia; R06.09 Other forms of dyspnea
CPT/HCPCS: 36415; 80048

== ENCOUNTER 2025-03-14 14:48 | Outpatient (CLI) | payer OTHER, SELFPAY ==
--- OUTSIDE RECORDS SUMMARY | 2024-12-30 17:30 | XMS_ITS ---
Author Organization [facility] Address [address] [place] [address] Care Team Providers Care Communication Equipment Repairer Name Role Phone William Hunter Primary Care Provider [phone] Sarah Wing Unavailable [phone] Migration, Provider Unavailable Unavailable Allergies Allergen (clinical drug ingredient) Drug/Non Drug Allergy documented on EMR Reaction Allergy Type Onset Date Status Substance with 2-bjxyvtk-4-methylg lutaryl-coenzyme A reductase inhibitor mechanism of action (substance) Statins couldnt walk Drug Allergy Active codeine Codeine Unknown Drug Allergy Active hydrocodone HYDROcodone itchy and nausea Drug Allergy [facility] Encounter Medications Medication SIG (Take, Route, Frequency, Duration) Notes Start Date End Date Status Metoprolol Succinate ER 100 MG TAKE 1 AND 1/2 TABLET BY MOUTH TWICE DAILY for 30 days Active Aspirin 81 MG 1 TAB(S) ORALLY ONCE A DAY *Please review and pick correct strength-formula tion from [facility] options. If intended option is not shown, discontinue and re-order from [employer]* Active hydrOXYzine HCl 25 MG 1 tab(s) orally 2 times a day for 30 days 06/24/2023 Active Jardiance 10 MG 1 tab(s) orally once a day (in the morning) Active amLODIPine Besylate 5 MG 1 tab(s) orally once a day for 30 day(s) Active Eliquis 5 MG 1 tab orally twice a day for 30 days Active Isosorbide Mononitrate ER 120 [...] MG 1 cap(s) orally 2 times a day for 30 day(s) 08/29/2024 Active Nitroglycerin 0.4 MG 1 tab(s) sublingually every 5 minutes prn Active rOPINIRole HCl 0.25 MG 1 tab(s) orally a t bedtime Active Encounters Encounter Location Date Provider Diagnosis [facility] [address] [facility] [address] [place] [address] 12/30/2024 Provider Migration Plan Of Treatment Medication Medication Name Sig Start Date Stop Date Notes Metoprolol Succinate ER 100 MG TAKE 1 AN D 1/2 TABLET BY MOUTH TWICE DAILY for 30 days amLODIPine Besylate 5 MG 1 tab(s) orally once a day for 30 day(s) Eliquis 5 MG 1 tab orally twice a day for 30 days Gabapentin 300 MG 1 cap(s) orally 2 ti mes a day for 30 day(s) 08/29/2024 Progress Notes * Rodo GLEZB:1965 (59 yo F)Acc No.[id number]:12/30/2024 Patient: Ashley NICOLE Provider: Janell elizabeth Migration :1965 A ge:59 Y S ex:Female Date:12/30/2024 Address:[facility] [id number] Pcp:William Hunter Subjective: * Chief Complaints: * 1 . Multum To Medispan Conversion Encounter. * Medical History: * Medications: T aking Aspirin 81 MG TABLET 1 TAB(S) ORALLY ONCE A DAY , Notes to Pharmacist: *Please review and pick correct strength-formulation from [employer] options. If intended option is not shown, [...] Electronic signature of Prov ider Migration on 03/14/2025 at 02:52 PM EDT Sign off status: Pending * Provider: Janell elizabeth Migration Date: 0 12/30/2024 Generated for Zuleima crockett/Joe/Farrukh on: 0 03/14/2025 02:52 PM EDT
--- OUTSIDE RECORDS SUMMARY | 2025-01-25 14:30 | XMS_ITS | Encounter Summary ---
Author Organization [place] [address] Care Team Providers Care Oil Burner Repairer Name Role Phone González Gotti MD Unavailable [phone] Cristi Cleaning MD Unavailable [phone] William Hunter MD Primary Care Provider [phone] Reason for Referral * In Office Procedure (Routine) - Pending Review Specialty Diagnoses / Procedures Referred By Contac t Referred To Contact Diagnoses Pressure ulcer of left heel, stage 4 (HCC) Foot ulceration, left, with necrosis of muscle (HCC) Procedures [place] DEBRIDEMENT MUSCLE &/FASCIA 1ST 20 SQ CM/< Cristi Pelletier DPM [address] [address] Phone: tel: fax: Referral ID Status Reason Start Date Expiration Date V isits Requested Visits Authorized [id number] Pending Review 01/28/2025 01/28/2026 1 1 * (Routine) - Pending Review Specialty Diagnoses / Procedures Referred By Contherlinda t Referred To Contact Diagnoses Foot ulceration, left, with necrosis of muscle (HCC) Procedures [facility] Cristi Pelletier DPM [address] [address] Phone: tel: fax: Referral ID Status Reason Start Date Expiration Date V isits Requested Visits Authorized [id number] Pending Review 01/25/2025 01/25/2026 1 1 Reason for Visit * Reason Comments Wound Check * Consultation (Routine) - Authorization Not Needed Specialty Diagnoses / Procedures Referred By Contac t Referred To Contact Wound Care Diagnoses Wound Care Procedures NH DEBRIDEMENT SUBCUTANEOUS TISSUE 1ST 20 SQ CM/< NH DEBRIDEMENT MUSCLE &/FASCIA 1ST 20 SQ CM/< NH DEBRIDEMENT BONE 1ST 20 SQ CM/< NH DEBRIDEMENT SUBCUTANEOUS TISSUE EA ADDL 20 SQ CM NH DEBRIDEMENT MUSCLE &/FASCIA EA ADDL 20 SQ CM NH DEBRIDEMENT BONE EACH ADDITIONAL 20 SQ CM NH DEBRIDEMENT OPEN WOUND FIRST 20 SQ CM/< NH DEBRIDEMENT OPN WND EA ADDL 20 SQ CM/PRT THEREOF [facility] [place] [address] [place] [address] Phone: tel: fax: Referral ID Status Reason Start Date Expiration Date Visits Requested Visits Authorized [id number] Authorization Not Needed Specialty Services Required 5 01/08/2026 99 99 Encounter Details Date Type Department Care Team (Latest Contact Info) Description 01/25/2025 2:30 PM EDT - 01/25/2025 11:59 PM EDT Hospital Encounter [facility] [place] [address] [address] [place] [address] Cristi Pelletier DPM [address] [address] Pressure ulcer of left heel, stage 4 (HCC) (Primary Dx); Foot ulceration, left, with necrosis of muscle (HCC) Discharge Disposition: Home or Self Care Social History Tobacco Use Types Packs/Day Years Used Date Smoking Tobacco: Former Cigarettes 0.3 40 0 12/26/1981 - 12/26/2021 Passive Smoke Exposure: Past Smokeless Tobacco: Never Alcohol Use Standard Drinks/Week Comments Not Currently 0 (1 standard drink = 0.6 oz pur e alcohol) [facility] Utilities Answer Date Recorded In the past 12 months has th e electric, gas, oil, or water company threatened to shut off services in your home? No 12/28/2024 Overall Financial Resource Strain (CARDIA) Answe r Date Recorded How hard is it for you to pa y for the very basics like food, housing, medical care, and heating? Not hard at all 12/28/2024 PHQ-2 Answer Date Recorded PHQ-2 Total Score 0 12/28/2024 [facility] - Occupational Stress Questionnaire Answer Date Recorded Do you feel stress - tense, restless, nervous, or anxious, or unable to sleep at night because your mind is troubled all the time - these days? Not at all 12/28/2024 Exercise Vital Sign Answer Date Recorde d On average, how many days pe r week do you engage in moderate to strenuous exercise (like a brisk walk)? 0 days 12/28/2024 On average, how many minutes do you engage in exercise at this level? 0 min 12/28/2024 Hunger Vital Sign Answer Date Recorded Within the past 12 months, y ou worried that your food would run out before you got the money to buy more. Never true 12/29/19 25 Within the past 12 months, t he food you bought just didn't last and you didn't have money to get more. Never true 12/28/2024 [facility] - Transportation Answer Date Re corded In the past 12 months, has l ack of transportation kept you from medical appointments or from getting medications? No 10/2022 In the past 12 months, has l ack of transportation kept you from meetings, work, or from getting things needed for daily living? No 05/29/2023 [facility] IP Transportation Answer D ate Recorded In the past 12 months, has l ack of reliable transportation kept you from medical appointments, meetings, work or from getting things needed for daily living? No 12/28/2024 Sexually Active Control Partners Comments Not Currently Comments No Sex and Gender Information Value Date Recorded Sex Assigned at Not on file Legal Sex Female 2:27 PM EDT Gender Identity Not on file Sexual Orientation Not on file documented as of this encounter Last Filed Vital Signs Vital Sign Reading Time Taken Comments Blood Pressure 124/72 01/25/2025 3:28 PM EDT Pulse 71 01/25/2025 3:28 PM EDT Temperature 36.3 C (97.3 F) 01/25/2025 3:28 PM EDT Respiratory Rate 18 01/25/2025 3:28 PM EDT Oxygen Saturation - - Inhaled Oxygen Concentration - - Weight - - Height - - Body Mass Index - - documented in this encounter Functional Status * Is the person deaf or does he/she have serious difficulty hearing? Answer Date of Assessment Author No 06/11/2023 2:58 PM EDT Redd Bates RN * Is the person blind or does he/she have serious difficulty seeing even when wearing glasses? Answer Date of Assessment Author No 06/11/2023 2:58 PM EDT Redd Bates RN * Does this person have serious difficulty walking or climbing stairs? Answer Date of Assessment Author No 06/11/2023 2:58 PM EDT Redd Bates RN * Does this person have difficulty dressing or bathing? Answer Date of Assessment Author No 06/11/2023 2:58 PM EDT Redd Bates RN * Because of a physical, mental or emotional condition, does this person have difficulty doing errands alone such as visiting a doctor's office or shopping? Answer Date of Assessment Author No 06/11/2023 2:58 PM EDT Redd Bates RN documented as of this encounter Mental Status * Because of a physical, mental or emotional condition, does this person have serious difficulty concentrating, remembering or making decisions? Answer Entry Date Author No 06/11/2023 2:58 PM EDT Redd Bates RN documented in this encounter Medications at Time of Discharge albuterol (PROVENTIL HFA;VENTOLIN HFA) 90 mcg/actuation Inhl HFA Aerosol Inhaler Inhale 2 Puffs into the lungs every 6 hours as needed for Wheezing. amLODIPine (NORVASC) 5 mg Oral Tablet Take 5 mg by mouth daily. 09/04/2022 amoxicillin (AMOXIL) 500 mg Oral Capsule TAKE ONE CAPSULE BY MOUTH THREE TIMES DAILY UNTIL GONE -- FINISH ALL MEDICINE -- 12/05/2024 apixaban (ELIQUIS) 5 mg Oral Tablet Take 1 Tablet by mouth 2 times daily. 60 Tablet 6 01/01/2025 aspirin 81 mg Oral Tablet, Chewable Take 1 Tablet by mouth daily. 30 Tablet 11 11/04/2022 cholecalciferol, vitamin D3, 25 mcg (1,000 unit) Oral Tablet Take 1 Tablet by mouth daily. clopidogrel (PLAVIX) 75 mg Oral Tablet Take 75 mg by mouth daily. 03/19/2017 empagliflozin (JARDIANCE) 10 mg Oral Tablet Take 10 mg by mouth daily. ENTRESTO 24-26 mg Oral Tablet Take 1 Tablet by mouth 2 times daily. 10/03/2024 evolocumab (REPATHA SURECLICK) 140 mg/mL SubQ Pen Injector Subcutaneous (Inject under the skin) 140 mg every 14 days. fluticasone propionate (FLONASE) 50 mcg/actuation Nasl [place], Suspension 1 spay each nostril twice daily 1 Each 3 06/28/2023 gabapentin (NEURONTIN) 300 mg Oral Capsule Take 300 mg by mouth 2 times daily. Takes every other day. hydroCHLOROthiazi de (MICROZIDE) 12.5 mg Oral Capsule Take 25 mg by mouth daily. 11/24/2022 hydrOXYzine (ATARAX) 25 mg Oral Tablet 1 tab(s) orally 2 times a day for 30 days 06/24/2023 isosorbide mononitrate (IMDUR) 120 mg Oral Tablet Sustained Release 24 hr TAKE ONE TABLET BY MOUTH EVERY DAY FOR CHEST PAINS 12/28/2022 Magnesium 200 mg Oral Tablet 200 mg. 07/07/2018 metoprolol succinate ER (TOPROL-XL) 100 mg Oral Tablet Sustained Release 24 hr Take 150 mg by mouth 2 times daily. multivitamin with folic acid (THERAGRAN) 400 mcg Oral Tablet Take 1 Tablet by mouth daily. nitroGLYCERIN (NITROSTAT) 0.4 mg SL Tablet, Sublingual Place 0.4 mg under the tongue every 5 minutes as needed for Chest pain. oxyCODONE-acetami nophen (PERCOCET) 5-325 mg Oral Tablet Take 1-2 Tablets by mouth every 4 hours as needed for Acute Pain (R52). 30 Tablet 06/11/2023 12:19 PM EDT 06/11/2023 oxymetazoline (AFRIN) 0.05 % Nasl [place], Non-Aerosol 1 [place] by Nasal route as needed for Congestion (30 min. prior to HBO2-PRN, difficulty clearing ears.). 06/28/2023 pantoprazole (PROTONIX) 40 mg Oral Tablet, Delayed Release (E.C.) Take 40 mg by mouth daily. Ranolazine 1,000 mg Oral Tablet Sustained Release 12 hr Take 1 Tablet by mouth 2 times daily. 12/28/2022 rOPINIRole (REQUIP) 1 mg Oral Tablet Take 1 mg by mouth nightly. 11/24/2022 VITAMIN B COMPLEX ORAL Take 1 Tablet by mouth daily. documented as of this encounter Discharge Disposition Disposition Code Departure Means Destination Home or Self Care documented in this encounter Progress Notes * Cristi Pelletier DPM - 01/25/2025 2:30 PM EDT Date of Visit:01/25/2025 Progress Note HPI Ashley Ding is a 59 y.o. year old female patient who presents today for wound evaluation and follow-up. Eval left heel and distal TMA Patient denies any fever, chills, nausea or vomiting Improving No pain Past Medical History: Diagnosis Date Anesthesia complication only with phenergan, alarming how long it takes her to wake up Asthma Bradycardia CAD (coronary artery disease) Cardiac pacemaker [facility] Dual PPM 11/05/2016 - Dr. Cleaning Chronic systolic heart failure (HCC) COPD (chronic obstructive pulmonary disease) ([facility]) Depression with anxiety Emphysema, unspecified (HCC) Essential hypertension Headache Heartburn History of cardiac cath 03/23/2017 Stent placed in Right leg 03/23/2017 HLD (hyperlipidemia) Hypertension TX (myocardial infarction) ([facility]) 06/2016 Pacemaker Post-operative nausea and vomiting Sinus node dysfunction ([facility]) PJ Dual PPM 11/05/2016 - Dr. Cleaning STEMI (ST elevation myocardial infarction) ([facility]) STEMI with 3 NORI to RCA Systolic heart failure ([facility]) 02/2017 ECHO, EF 25% Past Surgical History: Procedure Laterality Date CARDIAC CATHETERIZATION Right 03/23/2017 stent placed in right leg CARDIAC PACEMAKER PLACEMENT 11/05/2016 SJ Dual PPM COLONOSCOPY CORONARY ANGIOPLASTY WITH STENT PLACEMENT 06/2016 x3 DEBRIDEMENT Left 05/19/2023 .; Surgeon: Jabari Hill DPM; Location: [facility] MAIN OR; Service: Orthopedics FEMUR FRACTURE SURGERY Right right femur fx repair FOOT SURGERY FOOT SURGERY Left 12/23/2022 Left foot heel and second and third toe debridement with application of skin graft substitute. ; Surgeon: Jabari Hill DPM; Location: [facility] MA[facility] OR; Service: Orthopedics FOOT SURGERY Left 02/10/2023 Surgeon: Jabari Hill DPM; Location: [facility] MA[facility] OR; Service: Orthopedics FOOT SURGERY Left 06/06/2023 left FOOT TRANSMETATARSAL amputation; Surgeon: Jabari Hill DPM; Location: [facility]; Service: Podiatry HAMMER TOE SURGERY Left 06/15/2022 Left foot Correction of hammer toe deformity with arthroplasty second and third toe. Left foot Application of skin graft substitute.; Surgeon: Jabari Hill DPM; Location: [facility] OR; Service: Podiatry HIP SURGERY IR ABDOMINAL AORTOGRAM SERIALOGRAM 03/13/2022 IR ABDOMINAL AORTOGRAM SERIALOGRAM 03/13/2022 Kashif Wong MD [facility] IR IR ABDOMINAL AORTOGRAM SERIALOGRAM 11/04/2022 IR ABDOMINAL AORTOGRAM SERIALOGRAM 11/04/2022 Vishnu Penn MD [facility] IR IR ABDOMINAL AORTOGRAM SERIALOGRAM 12/02/2022 IR ABDOMINAL AORTOGRAM SERIALOGRAM 12/02/2022 Vishnu Penn MD [facility] IR IR ABDOMINAL AORTOGRAM SERIALOGRAM 06/02/2023 IR ABDOMINAL AORTOGRAM SERIALOGRAM 06/02/2023 Vishnu Penn MD [facility] IR IR ABDOMINAL AORTOGRAM SERIALOGRAM 12/27/2024 IR ABDOMINAL AORTOGRAM SERIALOGRAM 12/27/2024 Vishnu Penn MD [facility] IR IR ANGIOGRAM EXTREMITY LEFT 12/02/2022 IR ANGIOGRAM EXTREMITY LEFT 12/02/2022 Vishnu Penn MD [facility] IR IR ANGIOGRAM FEMORAL ARTERIO SHIFT 03/13/2022 IR ANGIOGRAM FEMORAL ARTERIO SHIFT 03/13/2022 Kashif Wong MD [facility] IR IR ANGIOGRAM FEMORAL ARTERIO SHIFT 11/04/2022 IR ANGIOGRAM FEMORAL ARTERIO SHIFT 11/04/2022 Vishnu Penn MD [facility] IR IR ANGIOGRAM FEMORAL ARTERIO SHIFT 06/02/2023 IR ANGIOGRAM FEMORAL ARTERIO SHIFT 06/02/2023 Vishnu Penn MD [facility] IR IR ANGIOGRAM FEMORAL ARTERIO SHIFT 12/27/2024 IR ANGIOGRAM FEMORAL ARTERIO SHIFT 12/27/2024 Vishnu Penn MD [facility] IR IR REVAS FEM POP ART UNILAT W SOLE LEVELING MACHINE OPERATOR 03/13/2022 IR REVAS FEM POP ART UNILAT W SOLE LEVELING MACHINE OPERATOR 03/13/2022 Kashif Wong MD [facility] IR IR REVAS FEM POP ART UNILAT W SOLE LEVELING MACHINE OPERATOR 06/02/2023 IR REVAS FEM POP ART UNILAT W SOLE LEVELING MACHINE OPERATOR 06/02/2023 Vishnu Penn MD [facility] IR IR REVAS FEM POP ART UNILAT W SOLE LEVELING MACHINE OPERATOR 12/28/2024 IR REVAS FEM POP ART UNILAT W SOLE LEVELING MACHINE OPERATOR 12/28/2024 Vishnu Penn MD [facility] IR IR TRANS ART OR PAO FOR THROMB SUBSQ DAY FU CATH CONT INJ+CLOS 12/29/2024 IR TRANS ART OR PAO FOR THROMB SUBSQ DAY FU CATH CONT INJ+CLOS 12/29/2024 Vishnu Penn MD [facility] IR IR TRANS ART OR PAO FOR THROMB TREAT SUBSQ DAY FU CATH CONT INJ 12/28/2024 IR TRANS ART OR PAO FOR THROMB TREAT SUBSQ DAY FU CATH CONT INJ 12/28/2024 Vishnu Penn MD [facility] IR IR TRANSCATH ARTERIAL INFUSION THROMBOLYSIS INITIAL TREAT 12/27/2024 IR TRANSCATH ARTERIAL INFUSION THROMBOLYSIS INITIAL TREAT 12/27/2024 Vishnu Penn MD [facility] IR IR ULTRASOUND GUIDED VASCULAR ACCESS 03/13/2022 IR ULTRASOUND GUIDED VASCULAR ACCESS 03/13/2022 Kashif Wong MD [facility] IR IR ULTRASOUND GUIDED VASCULAR ACCESS 11/04/2022 IR ULTRASOUND GUIDED VASCULAR ACCESS 11/04/2022 Vishnu Penn MD [facility] IR IR ULTRASOUND GUIDED VASCULAR ACCESS 12/02/2022 IR ULTRASOUND GUIDED VASCULAR ACCESS 12/02/2022 Vishnu Penn MD [facility] IR IR ULTRASOUND GUIDED VASCULAR ACCESS 06/02/2023 IR ULTRASOUND GUIDED VASCULAR ACCESS 06/02/2023 Vishnu Penn MD [facility] IR IR ULTRASOUND GUIDED VASCULAR ACCESS 12/27/2024 IR ULTRASOUND GUIDED VASCULAR ACCESS 12/27/2024 Vishnu Penn MD [facility] IR LAYER WOUND CLOSURE Left 05/19/2023 .; Surgeon: Jabari Hill DPM; Location: [facility] OR; Service: Orthopedics SKIN GRAFT Left 06/15/2022 Surgeon: Jabari Hill DPM; Location: [facility] OR; Service: Podiatry SKIN GRAFT Left 12/23/2022 . ; Surgeon: Jabari Hill DPM; Location: [facility] OR; Service: Orthopedics SKIN GRAFT 02/10/2023 Surgeon: Jabari Hill DPM; Location: [facility] OR; Service: Orthopedics TOE AMPUTATION Left 02/10/2023 Left foot second toe amputation, Left foot excisional debridement with application of skin graft substitute; Surgeon: Jabari Hill DPM; Location: [facility] OR; Service: Orthopedics TOE AMPUTATION Left 05/19/2023 Left foot, amputation of third toe. Left foot, wound debridment application. Left foot, skin graft substitute. Left foot wound debridment closure.; Surgeon: Jabari Hill DPM; Location: [facility] OR; Service: Orthopedics Current Outpatient Medications Medication Sig Dispense Refill albuterol (PROVENTIL HFA;VENTOLIN HFA) 90 mcg/actuation Inhl HFA Aerosol Inhaler Inhale 2 Puffs into the lungs every 6 hours as needed for Wheezing. amLODIPine (NORVASC) 5 mg Oral Tablet Take 5 mg by mouth daily. apixaban (ELIQUIS) 5 mg Oral Tablet Take 1 Tablet by mouth 2 times daily. 60 Tablet 6 aspirin 81 mg Oral Tablet, Chewable Take 1 Tablet by mouth daily. 30 Tablet 11 cholecalciferol, vitamin D3, 25 mcg (1,000 unit) Oral Tablet Take 1 Tablet by mouth daily. clopidogrel (PLAVIX) 75 mg Oral Tablet Take 75 mg by mouth daily. empagliflozin (JARDIANCE) 10 mg Oral Tablet Take 10 mg by mouth daily. ENTRESTO 24-26 mg Oral Tablet Take 1 Tablet by mouth 2 times daily. evolocumab (REPATHA SURECLICK) 140 mg/mL SubQ Pen Injector Subcutaneous (Inject under the skin) 140mg every 14 days. fluticasone propionate (FLONASE) 50 mcg/actuation Nasl [place], Suspension 1 spay each nostril twice daily (Patient taking differently: 2 Sprays by Nasal route daily as needed for Allergies. 1 spay each nostril twice daily) 1 Each 3 gabapentin (NEURONTIN) 300 mg Oral Capsule Take 300 mg by mouth 2 times daily. Takes every other day. hydroCHLOROthiazide (MICROZIDE) 12.5 mg Oral Capsule Take 25 mg by mouth daily. isosorbide mononitrate (IMDUR) 120 mg Oral Tablet Sustained Release 24 hr TAKE ONE TABLET BY MOUTH EVERY DAY FOR CHEST PAINS Magnesium 200 mg Oral Tablet 200 mg. metoprolol succinate ER (TOPROL-XL) 100 mg Oral Tablet Sustained Release 24 hr Take 150 mg by mouth2 times daily. multivitamin with folic acid (THERAGRAN) 400 mcg Oral Tablet Take 1 Tablet by mouth daily. nitroGLYCERIN (NITROSTAT) 0.4 mg SL Tablet, Sublingual Place 0.4 mg under the tongue every 5 minutes as needed for Chest pain. pantoprazole (PROTONIX) 40 mg Oral Tablet, Delayed Release (E.C.) Take 40 mg by mouth daily. Ranolazine 1,000 mg Oral Tablet Sustained Release 12 hr Take 1 Tablet by mouth 2 times daily. rOPINIRole (REQUIP) 1 mg Oral Tablet Take 1 mg by mouth nightly. VITAMIN B COMPLEX ORAL Take 1 Tablet by mouth daily. amoxicillin (AMOXIL) 500 mg Oral Capsule TAKE ONE CAPSULE BY MOUTH THREE TIMES DAILY UNTIL GONE -- FINISH ALL MEDICINE -- (Patient not taking: Reported on 01/25/2025) hydrOXYzine (ATARAX) 25 mg Oral Tablet 1 tab(s) orally 2 times a day for 30 days (Patient not taking: Reported on 01/25/2025) oxyCODONE-acetaminophen (PERCOCET) 5-325 mg Oral Tablet Take 1-2 Tablets by mouth every 4 hours as needed for Acute Pain (R52). (Patient not taking: Reported on 01/25/2025) 30 Tablet 0 oxymetazoline (AFRIN) 0.05 % Nasl [place], Non-Aerosol 1 [place] by Nasal route as needed for Congestion (30 min. prior to HBO2-PRN, difficulty clearing ears.). (Patient not taking: Reported on 01/25/2025) No current facility-administered medications for this encounter. Allergies Allergen Reactions Atorvastatin Myalgia Ezetimibe Myalgia Rosuvastatin Myalgia Simvastatin Myalgia Xfovygp-Bfk-Sgg Reductase Inhibitors Other (See Comments) Joint pain Codeine Itching nausea Hydrocodone Itching nausea Phenergan [Promethazine] Other (See Comments) Made legs restless And also very sleepy ROS See HPI for further details. Relevant review of systems otherwise negative. Physical Exam Vitals: 01/25/25 1528 BP: 124/72 Pulse: 71 Resp: 18 Temp: 97.3 ??F (36.3 ??C) TempSrc: Oral Ulcer Progress and Procedure Please refer to the LDA for details of ulcer progress and procedure. Ulcer evaluated left heel posterior to fascia No gross evidence of infection No abscess or sinus formation No fluctuance No malodor No ascending cellulitis or lymphangitis No gross necrosis of wound edges or base Wound bed appears viable Assessment and Plan Ashley was seen today for wound check. Diagnoses and all orders for this visit: Pressure ulcer of left heel, stage 4 (HCC) - [place] DEBRIDEMENT MUSCLE &/FASCIA 1ST 20 SQ CM/< Foot ulceration, left, with necrosis of muscle (HCC) - [facility] - [place] DEBRIDEMENT MUSCLE &/FASCIA 1ST 20 SQ CM/< Other orders - lidocaine (XYLOCAINE) 5 % ointment 1.continue standard ulcer therapy of this Arterial ulcer may include lab work: n/a,imaging:n/a, vascular testing:n/a, and interventions of: Staged debridement, Off- loading, and Appropriate dressing selection. 2. If, after 30 days of standard ulcertherapy, no significant wound area reduction has been achieved, potential advanced therapies to be considered for the treatment of this ulcer include:n/a. 3. Discussed appropriate care of this ulcer: Prevention of reoccurrence. 4. Patient instructions were given 5. Follow- up 1 week Sharp excisional debridement left posterior heel utilizing curette down to and including subcutaneous tissue and fascia <20 sq cm with bleeding and subsequent hemostasis. Patient tolerated the procedure well. No significant episodes of pain. No adverse events. Discussed the necessity of offloading the affected area to reduce pressure to allow for healing andat a minimum to reduce the possibility of progression of the ulcer. Advised patient that healing will not progress if the same pressures that caused the wound are allowed to continue unabated. Discussed measures to offload Daily dressing change documented in this encounter Miscellaneous Notes * Patient Instructions - Rosmery Cotto RN - 01/25/2025 2:30 PM EDT HOME-CARE INSTRUCTIONS FOLLOWING YOUR WOUND CARE VISIT: Please thoroughly read through your after visit summary for your Home-Care instructions related to your visit with us. Our wound care clinic team strives to heal your wound as quickly as possible with you as a huge part of that team. Phone numbers are listed at the end of your paperwork for who to call if you have any issues at home. We hope your wound care visit was excellent! If there were any issues during your visit, please askto speak with a member of the leadership team. Please keep in mind your follow up visits will take an average of 1 hour per visit from start to finish. Please note if you have paperwork that needs to be completed by our office for you such as disability, FMLA, etc... We will need 7-10 days to complete. Paperwork is not able to be completed the same day. Follow up in the Wound Care Center in 1 week ON WEDNESDAY Left heel- collagen, adaptic, 4x4, roll gauze, every other day. Left TMA site- paint with betadine daily. 01/08 [facility] has been contacted to obtain your wound care supplies. Their team will verify insurance coverage and should deliver supplies to your home within 24-48hours. Some insurance providers require a prior authorization which may take longer. Please call their customer service team if you have supply questions . Follow Up Instructions Check wound and surrounding skin for signs and symptoms of infection, such as fever, increase in redness, increase in amount of drainage or a foul odor from the drainage. Should you experience any ofthe above symptoms, notice a significant change in the wound, or have questions or problems following these instructions, please contact the Wound Care Center. Phones operate 8:00 am-4:30 pm Wednesday through Wednesday. If you call after normal business hours and leave a message; it will not be returned until the next business day. We do not have an on-call answering service or physician. If you have a problem after hours that can not wait, please call your primary doctor, go to urgent care or the nearest emergency room. If you smoke it is important for your wound care to stop smoking. Cigarette smoking and nicotine can restrict blood flow to the wound and slow healing. Take a multivitamin daily as prescribed and follow a nutritious diet. Increase the protein in your diet if you do not have restrictions. You may be contacted by mail or e-mail to participate in a patient satisfaction survey regarding your visit today. We value your opinion and depend on your feedback to make improvements and provide the best possible experience. Your time in completing this survey is greatly appreciated. If you haveany issues during your visit with us please feel free to contact the nursing leadership at any of our offices. We want your visits in outpatient wound care to be excellent. If there are any issues during your visit please ask to speak with a member of the nursing leadership team and we will address issues on the spot. You can also feel free to reach out to our embossing unit operator, Hanna Riggs at [phone] for any discussion. WHO TO CALL FOR PROBLEMS: Please call the OP wound care center with any problems or issues you may have after your visit or though the week. Each patient is assigned a case worker who can assist with issues you may be having. Rosmery is your case worker Individual office numbers are listed below. Press 1 for immediate or schedule needs, press 2 for the nursing line. The nurse line is for non-emergent needs and will be answered within 24 hours duringbusiness days. If you have a more immediate concern, press option #1. Office numbers: [place]pl[place]xtu-[phone] [place]-[phone] [place]- [phone] Our offices do not have an on-call provider. If you have emergent needs after hours please contact your primary care provider. You may also utilize the [facility] Nurse NOW Helpline: 9-912-8UXM-NOW for after-hours needs to get in contact with a nurse for assistance. documented in this encounter Plan of Treatment Upcoming Encounters Date Type Department Care Team (Late st Contact Info) Description 03/20/2025 3:45 PM EDT Office Visit [facility] [address] [place] [address] [place] [phone] Vishnu Penn MD [address] [place] [address] [place] [address] 03/26/2025 1:15 PM EDT Appointment [facility] [place] [address] [place] [address] Cristi Pelletier, DPM [address] [phone] 05/10/2025 10:20 AM EDT Office Visit [facility] [address] [place] [address] [address] [place] [address] May, Nette Rand SENIOR COMMUNICATIONS SPECIALIST[address] [address] 11/12/2025 1:30 PM EST Appointment [facility] [address] [place] [address] [address] [place] [address] May, Nette Rand SENIOR COMMUNICATIONS SPECIALIST[address] OZUNA [address] [place] [id number] 11/12/2025 2:40 PM EST Office Visit [facility] [address] [place] [address] [address] [place] [address] [address] OZUNA [address] [place] [address] Scheduled Orders Name Type Priority Associated Diagnoses Orde r Schedule NH DEBRIDEMENT MUSCLE &/FASCIA 1ST 20 SQ CM/< NH Charge Routine Pressure ulcer of left heel, stage 4 (HCC) Foot ulceration, left, with necrosis of muscle (HCC) Ordered: 01/28/2025 documented as of this encounter Goals Goal Patient Goal Type Associated Problems Recent Progress Patient-Stated? Author Wound Healing General On track(2024 4:27 PM EDT) Tsering Doran, RN Note: Wound Care Goals LEFT HEEL Patient is an active participant in their wound care plan. Patient is attending wound care visits regularly as recommended by physician. Patient is following instructions on treatment plan including follow up appointments, dressing change recommendations, pressure relief measures such as offloading or use of support surfaces, smoking cessation if applicable, active nutrition support. Patient notifies wound care staff of any problems. Wound volume reduction goals 30% by week 4 50% by week 8 80% by week 12 100% by week 14 Nursing Diagnosis: Impairment of skin integrity as evidence by open wound. Risk for infection related to open wound. Nursing Interventions to assist with healing pressure wounds: Assess patient's pain status, and issues with immobility, friction and incontinence. Assess wound size, naun wound, drainage and odor. Educate patient and caregivers on signs and symptoms of infection, risk factors with emphasis on nutrition and offloading, wound care and importance of prompt treatment. Obtain initial physician orders for pressure wounds to include albumin, prealbumin, offloading devices and appropriate dressing to maintain microenvironment conducive to healing. Monitor patient compliance with wound care, nutritional intake and effectiveness of offloading. For foot or leg ulcers: Assess for peripheral edema. If present , measure ankle, calf and foot circumference on initial visit and as indicated. Palpate pedal pulses. Use doppler if unable to palpate dorsalis pedal or posterior tibial pulses. documented as of this encounter Visit Diagnoses Diagnosis Pressure ulcer of left heel, stage 4 (HCC)- Primary Foot ulceration, left, with necrosis of muscle (HCC) documented in this encounter Administered Medications Inactive Administered Medications - up to 1 most recent administrations Medication Order MAR Action Action Date Dose Rate Site lidocaine (XYLOCAINE) 5 % ointment Topical, ONCE, 1 dose, On Alicia 01/25/25 at 1545, Application site: left foot Given 01/25/2025 3:31 PM EDT documented in this encounter Orders Medications Ordered That Daniel ht Not Have Been Administered Count Last Ordered Date First Ordered Date lidocaine (XYLOCAINE) 5 % ointment 1 2024 Nursing Count Last Ordered Date First Orde red Date AMB [facility] PRIMARY DRESSING 1 01/25/2025 documented in this encounter Care Teams Oil Burner Repairer Relationship Specialty Start Date End Date William Hunter MD [address] [place] [address] [place] [phone] PCP - General Internal Medicine-Adolescent Medicine 05/28/23 González Gotti MD [address] [place] [address] DR MARTINEZ [place] [phone] Consulting Physician Internal Medicine - Clinical Cardiac Electrophysiology 04/05/17 Cristi Cleaning MD [address] [place] [address] DR MARTINEZ [place] [phone] Physician Internal Medicine-Cardiovascular Disease 04/05/17 documented as of this encounter
--- OUTSIDE RECORDS SUMMARY | 2025-02-01 14:58 | XMS_ITS | Encounter Summary ---
Author Organization [place] [address] Care Team Providers Care Wildlife Technician Name Role Phone González Gotti MD Unavailable [phone] Cristi Cleaning MD Unavailable [phone] William Hunter MD Primary Care Provider [phone] Reason for Referral * In Office Procedure (Routine) - Pending Review Specialty Diagnoses / Procedures Referred By Contac t Referred To Contact Diagnoses Stage III pressure ulcer of left heel (HCC) Procedures ID DEBRIDEMENT SUBCUTANEOUS TISSUE 1ST 20 SQ CM/< Cristi Pelletier DPM [address] [place] [id number] Phone: tel: fax: Referral ID Status Reason Start Date Expiration Date V isits Requested Visits Authorized [id number] Pending Review 02/05/2025 02/05/2026 1 1 * (Routine) - Pending Review Specialty Diagnoses / Procedures Referred By Contac t Referred To Contact Diagnoses Stage III pressure ulcer of left heel (HCC) Procedures AMB [facility] PRIMARY DRESSING Cristi Pelletier DPM [address] [address] Phone: tel: fax: Referral ID Status Reason Start Date Expiration Date V isits Requested Visits Authorized [id number] Pending Review 02/01/2025 02/01/2026 1 1 Reason for Visit * Reason Comments Wound Check * Consultation (Routine) - Authorization Not Needed Specialty Diagnoses / Procedures Referred By Brian t Referred To Contact Wound Care Diagnoses Wound Care Procedures ID DEBRIDEMENT SUBCUTANEOUS TISSUE 1ST 20 SQ CM/< ID DEBRIDEMENT MUSCLE &/FASCIA 1ST 20 SQ CM/< ID DEBRIDEMENT BONE 1ST 20 SQ CM/< ID DEBRIDEMENT SUBCUTANEOUS TISSUE EA ADDL 20 SQ CM ID DEBRIDEMENT MUSCLE &/FASCIA EA ADDL 20 SQ CM ID DEBRIDEMENT BONE EACH ADDITIONAL 20 SQ CM ID DEBRIDEMENT OPEN WOUND FIRST 20 SQ CM/< ID DEBRIDEMENT OPN WND EA ADDL 20 SQ CM/PRT THEREOF [facility] [place] [address] [address] [facility] [place] [address] Phone: tel: fax: Referral ID Status Reason Start Date Expiration Date Visits Requested Visits Authorized [id number] Authorization Not Needed Specialty Services Required 5 01/08/2026 99 99 Encounter Details Date Type Department Care Team (Latest Contact Info) Description 02/01/2025 2:58 PM EDT - 02/01/2025 11:59 PM EDT Hospital Encounter [facility] [address] [place] [address] Cristi Pelletier DPM [address] [phone] Stage III pressure ulcer of left heel (HCC) (Primary Dx) Discharge Disposition: Home or Self Care Social History Tobacco Use Types Packs/Day Years Used Date Smoking Tobacco: Former Cigarettes 0.3 40 0 12/26/1981 - 12/26/2021 Passive Smoke Exposure: Past Smokeless Tobacco: Never Alcohol Use Standard Drinks/Week Comments Not Currently 0 (1 standard drink = 0.6 oz pur e alcohol) [facility] Utilities Answer Date Recorded In [...] Date Recorded PHQ-2 Total Score 0 12/28/2024 [facility] - Occupational Stress Questionnaire Answer Date Recorded [...] needed for daily living? No 05/29/2023 [facility] IP Transportation Answer D ate Recorded [...] Assessment Author No 06/11/2023 2:58 PM Redd Mcneill RN documented as of this encounter Mental [...] days. fluticasone propionate (FLONASE) 50 mcg/actuation Nasl [place], Suspension 1 spay each nostril twice daily [...] EDT 06/11/2023 oxymetazoline (AFRIN) 0.05 % Nasl [place], Non-Aerosol 1 [place] by Nasal route as needed for Congestion [...] Bradycardia CAD (coronary artery disease) Cardiac pacemaker [facility] Dual PPM 11/05/2016 - Dr. Cleaning Chronic systolic heart failure ([facility]) COPD (chronic obstructive pulmonary disease) ([facility]) Depression with anxiety Emphysema, unspecified ([facility]) Essential hypertension Headache Heartburn History of cardiac cath 03/23/2017 Stent placed in Right leg 03/23/2017 HLD (hyperlipidemia) Hypertension LA (myocardial infarction) ([facility]) 06/2016 Pacemaker Post-operative nausea and vomiting Sinus node dysfunction ([facility]) [facility] Dual PPM 11/05/2016 - Dr. Cleaning STEMI (ST elevation myocardial infarction) ([facility]) STEMI with 3 NORI to RCA Systolic heart failure ([facility]) 02/2017 ECHO, EF 25% Past Surgical History: Procedure Laterality Date CARDIAC CATHETERIZATION Right 03/23/2017 stent placed in right leg CARDIAC PACEMAKER PLACEMENT 11/05/2016 [facility] Dual PPM COLONOSCOPY CORONARY ANGIOPLASTY WITH STENT PLACEMENT 06/2016 x3 DEBRIDEMENT Left 05/19/2023 .; Surgeon: Jabari Hill DPM; Location: [facility] MAIN OR; Service: Orthopedics FEMUR FRACTURE SURGERY Right right femur fx repair FOOT SURGERY FOOT SURGERY Left 12/23/2022 Left foot heel and second and third toe debridement with application of skin graft substitute. ; Surgeon: Jabari Hill DPM; Location: [facility] MAIN OR; Service: Orthopedics FOOT SURGERY Left 02/10/2023 Surgeon: Jabari Hill DPM; Location: [facility] MAIN OR; Service: Orthopedics FOOT SURGERY Left 06/06/2023 left FOOT TRANSMETATARSAL amputation; Surgeon: Jabari Hill DPM; Location: [facility] MAIN OR; Service: Podiatry HAMMER TOE SURGERY Left 06/15/2022 Left foot Correction of hammer toe deformity with arthroplasty second and third toe. Left foot Application of skin graft substitute.; Surgeon: Jabari Hill DPM; Location: [facility] MAIN OR; Service: Podiatry HIP SURGERY IR [...] IR REVAS FEM POP ART UNILAT W CASE MANAGEMENT DIRECTOR 03/13/2022 IR REVAS FEM POP ART UNILAT W CASE MANAGEMENT DIRECTOR 03/13/2022 Kashif Wong MD [facility] IR IR REVAS FEM POP ART UNILAT W CASE MANAGEMENT DIRECTOR 06/02/2023 IR REVAS FEM POP ART UNILAT W CASE MANAGEMENT DIRECTOR 06/02/2023 Vishnu Penn MD [facility] IR IR REVAS FEM POP ART UNILAT W CASE MANAGEMENT DIRECTOR 12/28/2024 IR REVAS FEM POP ART UNILAT W CASE MANAGEMENT DIRECTOR 12/28/2024 Vishnu Penn MD [facility] IR IR [...] 05/19/2023 .; Surgeon: Jabari Hill DPM; Location: [facility] MAIN OR; Service: Orthopedics SKIN GRAFT Left 06/15/2022 Surgeon: Jabari Hill DPM; Location: [facility] MAIN OR; Service: Podiatry SKIN GRAFT Left 12/23/2022 . ; Surgeon: Jabari Hill DPM; Location: [facility] MAIN OR; Service: Orthopedics SKIN GRAFT 02/10/2023 Surgeon: Jabari Hill DPM; Location: [facility] MAIN OR; Service: Orthopedics TOE AMPUTATION Left 02/10/2023 Left foot second toe amputation, Left foot excisional debridement with application of skin graft substitute; Surgeon: Jabari Hill DPM; Location: [facility] MAIN OR; Service: Orthopedics TOE AMPUTATION Left 05/19/2023 Left foot, amputation of third toe. Left foot, wound debridment application. Left foot, skin graft substitute. Left foot wound debridment closure.; Surgeon: Jabari Hill DPM; Location: [facility] MAIN OR; Service: Orthopedics Current Outpatient Medications [...] days. fluticasone propionate (FLONASE) 50 mcg/actuation Nasl [place], Suspension 1 spay each nostril twice daily [...] Tablet 0 oxymetazoline (AFRIN) 0.05 % Nasl [place], Non-Aerosol 1 [place] by Nasal route as needed for Congestion [...] Myalgia Ezetimibe Myalgia Rosuvastatin Myalgia Simvastatin Myalgia Vcmdvda-Kvl-Hir Reductase Inhibitors Other (See Comments) Joint pain [...] (HCC) - AMB [facility] PRIMARY DRESSING - ID DEBRIDEMENT SUBCUTANEOUS TISSUE 1ST 20 SQ CM/< [...] TMA site- paint with betadine daily. 01/08 [facility] Wound [facility] has been contacted to obtain your [...] free to reach out to our community administrator, Hanna Riggs at [phone] for any discussion. WHO TO CALL FOR PROBLEMS: Please call the OP wound care center with any problems or issues you may have after your visit or though the week. Each patient is assigned a employment case manager who can assist with issues you may be having. Individual office numbers are listed below. Press 1 for immediate or schedule needs, press 2 for the nursing line. The nurse line is for non-emergent needs and will be answered within 24 hours duringbusiness days. If you have a more immediate concern, press option #1. Office numbers: [place]-[phone] [place] [facility]-[phone] [place]- [phone] Our offices do not have an on-call provider. If you have emergent needs after hours please contact your primary care provider. You may also utilize the [facility] Nurse NOW Helpline: 5-545-7JMH-NOW for after-hours needs to get in contact with a nurse for assistance. documented in this encounter Plan of Treatment Upcoming Encounters Date Type Department Care Team (Late st Contact Info) Description 03/20/2025 3:45 PM EDT Office Visit [facility] [address] [place] [address] [place] [phone] Vishnu Penn MD [address] [place], [place] [phone] 03/26/2025 1:15 PM EDT Appointment [facility] [place] [address] [facility] [place] [address] Cristi Pelletier DPM [address] [phone] 05/10/2025 10:20 AM EDT Office Visit [facility] [address] [place] [address] [place] [phone] Nette Jalloh APRN [address] [place] [phone] 11/12/2025 1:30 PM EST Appointment [facility] [address] [facility] [address] [place] [address] January, Nette Rand, VENDING MANAGER [address] [place], [place] [id number] 11/12/2025 2:40 PM EST Office Visit [facility] [address] [place] [address] [address]ette [address] [place] [address] Scheduled Orders Name Type Priority Associated Diagnoses Orde r Schedule ID DEBRIDEMENT SUBCUTANEOUS TISSUE 1ST 20 SQ CM/< ID Charge Routine Stage III pressure ulcer of [...] 02/01/2025 documented in this encounter Care Teams Wildlife Technician Relationship Specialty Start Date End Date William Hunter MD [address] [place] [id number] PCP - General Internal Medicine-Adolescent Medicine 05/28/23 Goznález Gotti MD [address] [place] [address] [place] [address] Consulting Physician Internal Medicine - Clinical Cardiac Electrophysiology 04/05/17 Cristi Cleaning MD [address] [place] [address] [place] [address] Physician Internal Medicine-Cardiovascular Disease 04/05/17 documented as of this encounter
--- OUTSIDE RECORDS SUMMARY | 2025-02-07 09:40 | XMS_ITS | Encounter Summary ---
Author Organization [place] [address] Care Team Providers Care Sales And Service Representative Name Role Phone González Gotti MD Unavailable [phone] Cristi Cleaning MD Unavailable [phone] William Hunter MD Primary Care Provider [phone] Reason for Referral * Vascular Imaging (Routine) - Closed Specialty Diagnoses / Procedures Referred By Brian villavicencio Referred To Contact Radiology Diagnoses PAD (peripheral artery disease) Peripheral vascular angioplasty status with implants and grafts Procedures [facility] LOWER EXTREMITY ARTERIAL DUPLEX COMPLETE Nette Jalloh APRN [address] [place] [address] [place] [id number] Phone: tel: fax: Referral ID Status Reason Start Date Expiration Date Visits Re quested Visits Authorized [id number] Closed 02/07/2025 02/07/2026 1 1 Reason for Visit * Reason Comments Peripheral Arterial Disease (PAD) Encounter Details Date Type Department Care Team (Late st Contact Info) Description 02/07/2025 9:40 AM EDT Office Visit [facility] Vascular Surg Edg [address] [facility] [address] [place] [phone] Nette Jalloh APRN [address] [place] [address] [place] [id number] PAD (peripheral artery disease) (Primary Dx); Primary hypertension; Chronic obstructive pulmonary disease, unspecified COPD type (HCC); Peripheral vascular angioplasty status with implants and grafts; S/P insertion of iliac artery stent Social History Tobacco Use Types Packs/Day Years Used Date Smoking Tobacco: Former Cigarettes 0.3 40 0 12/26/1981 - 12/26/2021 Passive Smoke Exposure: Past Smokeless Tobacco: Never Tobacco Cessation:Counseling Given: Not Answered Alcohol Use Standard Drinks/Week Comments Not Currently 0 (1 standard drink = 0.6 oz pur e alcohol) [facility] Utilities Answer Date Recorded In the past 12 months has e Phanfare, gas, oil, or water [employer] threatened to shut off services in your home? No 12/28/2024 Overall Financial Resource Strain (CARDIA) Answe r Date Recorded How hard is it for you to pa y for the very basics like food, housing, medical care, and heating? Not hard at all 12/28/2024 PHQ-2 Answer Date Recorded PHQ-2 Total Score 0 12/28/2024 [facility] - Occupational Stress Questionnaire Answer Date [...] things needed for daily living? No 05/29/2023 [facility] IP Transportation Answer D ate Recorded In [...] Sign Reading Time Taken Comments Blood Pressure 118/80 02/07/2025 9:46 AM EDT Pulse 75 02/07/2025 9:44 AM EDT Temperature 36.4 C (97.6 F) 02/07/2025 9:44 AM EDT Respiratory Rate - - Oxygen Saturation - - Inhaled Oxygen Concentration - - Weight 69.8 kg (153 lb 12.8 oz) 02/07/2025 9:44 AM EDT Height 162.6 cm (5' 4 ) 02/07/2025 9:44 AM EDT Body Mass Index 26.4 02/07/2025 9:44 AM EDT documented in this encounter Functional Status * Is the person deaf or does he/she have serious difficulty hearing? Answer Date of Assessment Author No 06/11/2023 2:58 PM Redd Mcneill RN * Is the person blind or does he/she have serious difficulty seeing even when wearing glasses? Answer Date of Assessment Author No 06/11/2023 2:58 PM Redd Mcneill RN * Does this person have serious difficulty walking or climbing stairs? Answer Date of Assessment Author No 06/11/2023 2:58 PM RACHELLT Redd Bates RN * Does this person have difficulty dressing or bathing? Answer Date of Assessment Author No 06/11/2023 2:58 PM RACHELLT Redd Bates RN * Because of a physical, mental or emotional condition, does this person have difficulty doing errands alone such as visiting a doctor's office or shopping? Answer Date of Assessment Author No 06/11/2023 2:58 PM RACHELLT Redd Bates RN documented as of this encounter Mental Status * Because of a physical, mental or emotional condition, does this person have serious difficulty concentrating, remembering or making decisions? Answer Entry Date Author No 06/11/2023 2:58 PM EDT Redd Bates RN documented in this encounter Patient Instructions * Attachments The following attachments cannot be sent through Care Everywhere. * Peripheral artery disease and claudication (Hebrew) documented in this encounter Progress Notes * Nette Jalloh APRN - 02/07/2025 9:40 AM EDT Images from the original note were not included. Patient of Dr. Penn Subjective: Ms. Ding is here for a scheduled routine follow-up visit History of Present Illness The patient is a 59 y.o. female: Peripheral Arterial Disease Denies pain with ambulation. Complains of open wounds. Follows at the wound care clinic with Dr. Pelletier. Reports history of previous vascular procedures on legs. Takes ASA, Plavix, and Eliquis daily. Previous smoker 2021. I have confirmed and addended the above HPI, and therefore it represents my work. Nette Jalloh APRN HPI Patients past medical, family and social histories were reviewed and updated. There are no changes except as noted. Past Medical History: Diagnosis Date Anesthesia complication only with phenergan, alarming how long it takes her to wake up Asthma Bradycardia CAD (coronary artery disease) Cardiac pacemaker M Dual PPM 11/05/2016 - Dr. Cleaning Chronic systolic heart failure ([facility]) COPD (chronic obstructive pulmonary disease) ([facility]) Depression with anxiety Emphysema, unspecified ([facility]) Essential hypertension Headache Heartburn History of cardiac cath 03/23/2017 Stent placed in Right leg 03/23/2017 HLD (hyperlipidemia) Hypertension KS (myocardial infarction) ([facility]) 06/2016 Pacemaker Post-operative nausea and vomiting Sinus node dysfunction ([facility]) 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 Cleaning STEMI (ST elevation myocardial infarction) ([facility]) STEMI with 3 NORI to RCA Systolic heart failure ([facility]) 02/2017 ECHO, EF 25% Patient Active Problem List Diagnosis Date Noted Stage III pressure ulcer of left heel ([facility]) 01/09/2025 Critical limb ischemia of both lower extremities ([facility]) 12/28/2024 DVT, lower extremity, distal, acute, left (HCC) 12/27/2024 Former smoker-quit 202112/08/2024 Abnormal ankle brachial index (RODOLFO) 12/07/2023 Acute anxiety 12/07/2023 Adrenal mass, right 12/07/2023 AICD discharge 12/07/2023 Amputation of one or more toes 12/07/2023 Arterial leg ulcer (HCC) 12/07/2023 RLS (restless legs syndrome) 12/07/2023 Betaxolol allergy 12/07/2023 Gastroesophageal reflux disease without esophagitis 12/07/2023 History of angina, class II 12/07/[address] elevation myocardial infarction (STEMI) 12/07/2023 Hypokalemia 12/07/2023 Implantable cardioverter-defibrillator (ICD) in situ 12/07/2023 Insomnia 12/07/2023 Kidney stone 12/07/2023 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 12/07/2023 Neuropathy 12/07/2023 Non-pressure chronic ulcer of skin of other sites with unspecified severity (HCC) 12/07/2023 Palpitations 12/07/2023 Atrial fibrillation with rapid ventricular response ([facility]) 12/07/2023 Seasonal allergic rhinitis 12/07/2023 Sinusitis 12/07/2023 Stented coronary artery 12/07/2023 Typical angina 12/07/2023 Ventricular fibrillation (HCC) 12/07/2023 Ventricular fibrillation seen on engine monitor ([facility]) 12/07/2023 Ventricular tachyarrhythmia ([facility]) 12/07/2023 Failed flap 06/28/2023 Skin flap necrosis ([facility]) 06/28/2023 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) 06/02/2023 PAD (peripheral artery disease) 06/01/2023 S/P foot surgery 06/01/2023 Cellulitis of left lower extremity 05/28/2023 Open wound of left foot 04/26/2023 Hammertoe of left foot 06/08/2022 Pain in left foot 06/08/2022 Gangrene of left foot (HCC) 06/08/2022 Vaping nicotine dependence, non-tobacco product 03/05/2022 COPD (chronic obstructive pulmonary disease) (HCC) HLD (hyperlipidemia) Hypertension Emphysema, unspecified CAD (coronary artery disease) Cardiac pacemaker History of cardiac cath Depression with anxiety Essential hypertension Chronic systolic heart failure (HCC) Sinus node dysfunction (HCC) Bradycardia Past Surgical History: Procedure Laterality Date CARDIAC CATHETERIZATION Right 03/23/2017 stent placed in right leg CARDIAC PACEMAKER PLACEMENT 11/05/2016 SJM Dual PPM COLONOSCOPY CORONARY ANGIOPLASTY WITH STENT PLACEMENT 06/2016 x3 DEBRIDEMENT Left 05/19/2023 .; Surgeon: Jabari Hill DPM; Location: [facility]; Service: Orthopedics FEMUR FRACTURE SURGERY Right right femur fx repair FOOT SURGERY FOOT SURGERY Left 12/23/2022 Left foot heel and second and third toe debridement with application of skin graft substitute. ; Surgeon: Jabari Hill DPM; Location: [facility]; Service: Orthopedics FOOT SURGERY Left 02/10/2023 Surgeon: Jabari Hill DPM; Location: [facility]; Service: Orthopedics FOOT SURGERY Left 06/06/2023 left FOOT TRANSMETATARSAL amputation; Surgeon: Jabari Hill DPM; Location: [facility]; Service: Podiatry HAMMER TOE SURGERY Left 06/15/2022 Left foot Correction of hammer toe deformity with arthroplasty second and third toe. Left foot Application of skin graft substitute.; Surgeon: Jabari Hill DPM; Location: [facility]; Service: Podiatry HIP SURGERY [...] IR REVAS FEM POP ART UNILAT W SURVEILLANCE INVESTIGATOR 03/13/2022 IR REVAS FEM POP ART UNILAT W SURVEILLANCE INVESTIGATOR 03/13/2022 Kashif Wong MD EDG IR IR REVAS FEM POP ART UNILAT W SURVEILLANCE INVESTIGATOR 06/02/2023 IR REVAS FEM POP ART UNILAT W SURVEILLANCE INVESTIGATOR 06/02/2023 Vishnu Penn MD EDG IR IR REVAS FEM POP ART UNILAT W SURVEILLANCE INVESTIGATOR 12/28/2024 IR REVAS FEM POP ART UNILAT W SURVEILLANCE INVESTIGATOR 12/28/2024 Vishnu Penn MD EDG IR IR [...] 05/19/2023 .; Surgeon: Jabari Hill DPM; Location: [facility]; Service: Orthopedics SKIN GRAFT Left 06/15/2022 Surgeon: Jabari Hill DPM; Location: [facility]; Service: Podiatry SKIN GRAFT Left 12/23/2022 . ; Surgeon: Jabari Hill DPM; Location: [facility]; Service: Orthopedics SKIN GRAFT 02/10/2023 Surgeon: Jabari Hill DPM; Location: [facility]; Service: Orthopedics TOE AMPUTATION Left 02/10/2023 Left foot second toe amputation, Left foot excisional debridement with application of skin graft substitute; Surgeon: Jabari Hill DPM; Location: [facility]; Service: Orthopedics TOE AMPUTATION Left 05/19/2023 Left foot, amputation of third toe. Left foot, wound debridment application. Left foot, skin graft substitute. Left foot wound debridment closure.; Surgeon: Jabari Hill DPM; Location: [facility]; Service: Orthopedics Family History Problem Relation Age of Onset Hypertension Mother Heart Disease Mother Cancer Mother Diabetes Father Hypertension Father Cancer Father Anesth Problems Neg Hx Social History Tobacco Use Smoking status: Former Current packs/day: 0.00 Average packs/day: 0.3 packs/day for 40.0 years (10.0 ttl pk-yrs) Types: Cigarettes Start date: 12/26/1981 Quit date: 12/26/2021 Years since quittin.1 Passive exposure: Past Smokeless tobacco: Never Substance Use Topics Alcohol use: Not Currently Current Outpatient Medications Medication Instructions albuterol (PROVENTIL HFA;VENTOLIN HFA) 90 mcg/actuation Inhl HFA Aerosol Inhaler 2 Puffs, EVERY 6 HOURS PRN amLODIPine (NORVASC) 5 mg, DAILY amoxicillin (AMOXIL) 500 mg Oral Capsule TAKE ONE CAPSULE BY MOUTH THREE TIMES DAILY UNTIL GONE -- FINISH ALL MEDICINE -- apixaban (ELIQUIS) 5 mg, Oral, 2 TIMES DAILY aspirin (ASPIRIN) 81 mg, Oral, DAILY cholecalciferol, vitamin D3, 25 mcg (1,000 unit) Oral Tablet 1 Tablet, DAILY clopidogreL (PLAVIX) 75 mg, DAILY ENTRESTO 24-26 mg Oral Tablet 1 Tablet, 2 TIMES DAILY fluticasone propionate (FLONASE) 50 mcg/actuation Nasl [place], Suspension 1 spay each nostril twice daily gabapentin (NEURONTIN) 300 mg, 2 TIMES DAILY hydroCHLOROthiazide (MICROZIDE) 25 mg, DAILY hydrOXYzine (ATARAX) 25 mg Oral Tablet 1 tab(s) orally 2 times a day for 30 days isosorbide mononitrate (IMDUR) 120 mg Oral Tablet Sustained Release 24 hr TAKE ONE TABLET BY MOUTH EVERY DAY FOR CHEST PAINS Jardiance 10 mg, DAILY Magnesium 200 mg metoprolol succinate ER (TOPROL-XL) 150 mg, 2 TIMES DAILY multivitamin with folic acid (THERAGRAN) 400 mcg Oral Tablet 1 Tablet, DAILY nitroGLYCERIN (NITROSTAT) 0.4 mg, EVERY 5 MIN PRN oxyCODONE-acetaminophen (PERCOCET) 5-325 mg Oral Tablet 1-2 Tablets, Oral, EVERY 4 HOURS PRN oxymetazoline (AFRIN) 0.05 % Nasl [place], Non-Aerosol 1 [place], Nasal, PRN pantoprazole (PROTONIX) 40 mg, DAILY Ranolazine 1,000 mg Oral Tablet Sustained Release 12 hr 1 Tablet, 2 TIMES DAILY Repatha SureClick 140 mg, EVERY 14 DAYS rOPINIRole (REQUIP) 1 mg, NIGHTLY VITAMIN B COMPLEX ORAL 1 Tablet, DAILY Allergies Allergen Reactions Atorvastatin Myalgia Ezetimibe Myalgia Rosuvastatin Myalgia Simvastatin Myalgia Felnxfe-Eso-Cun Reductase Inhibitors Other (See Comments) Joint pain Codeine Itching nausea Hydrocodone Itching nausea Phenergan [Promethazine] Other (See Comments) Made legs restless And also very sleepy Review of Systems Constitutional: Negative for appetite change, chills, fatigue and fever. Respiratory: Negative for chest tightness and shortness of breath. Cardiovascular: Negative for chest pain and leg swelling. Skin: Negative for color change and wound. All other systems reviewed and are negative. Objective: Vitals: 02/07/25 0944 02/07/25 0946 BP: 118/80 118/80 BP Location: Left arm Right arm Patient Position: Sitting Sitting Pulse: 75 Temp: 97.6 ??F (36.4 ??C) TempSrc: Forehead Weight: 153 lb 12.8 oz (69.8 kg) Height: 5' 4 (1.626 m) Body mass index is 26.4 kg/m??. Physical Exam Vitals reviewed. Constitutional: Appearance: Normal appearance. HENT: Head: Normocephalic. Eyes: General: No scleral icterus. Conjunctiva/sclera: Conjunctivae normal. Comments: Wears corrective lens Cardiovascular: Rate and Rhythm: Normal rate. Pulses: Femoral pulses are 2+ on the right side and 2+ on the left side. Dorsalis pedis pulses are 0 on the left side. Posterior tibial pulses are 0 on the left side. Comments: Left foot warm and pink right groin access site soft, no drainage or erythema Pulmonary: Effort: Pulmonary effort is normal. No respiratory distress. Breath sounds: Normal breath sounds. No wheezing. Musculoskeletal: General: No swelling. Cervical back: Normal range of motion. Legs: Feet: Comments: L TMA well healed Skin: General: Skin is warm and dry. Neurological: General: No focal deficit present. Mental Status: She is alert and oriented to person, place, and time. Mental status is at baseline. Gait: Gait is intact. Psychiatric: Attention and Perception: Attention normal. Mood and Affect: Mood normal. Behavior: Behavior normal. Behavior is cooperative. Thought Content: Thought content normal. Judgment: Judgment normal. Imaging: Peripheral Arterial Disease Imaging [facility] LOWER EXTREMITY ARTERIAL DUPLEX COMPLETE Result Date: 12/17/2024 Conclusions * RIGHT: * RABI is 0.50 indicating severe claudication to rest pain. Right great toe pressure is not obtainable secondary to decreased flow. * There is an upper end (20-49%) stenosis of the distal right femoral artery. * Total occlusion of the right posterior tibial artery. This is new compared with the previous exam dated 09/2024. * LEFT: * LABI is 0.30 indicating rest pain. Toes have been previously amputated. * There is 50-99% stenosis of the left superficial femoral artery wherevelocities increase from 46 cm/s to 212 cm/s. * *Acute thrombosis of the left distal popliteal artery, posterior tibial artery, and anterior tibial artery. Flow is noted in the dorsalis pedis artery likely secondary to collaterals. [facility] LOWER EXTREMITY ARTERIAL DUPLEX COMPLETE Result Date: 10/10/2024 Conclusions * The bilateral RODOLFO's appear to reflect possible small vessel disease. * Right: * Elevated inflow velocities, 178 cm/s. 20-49 % stenosis of the proximal SFA, 138 cm/s. Patency of the PLASTIC SURGERY COORDINATOR,profunda, SFA, popliteal artery, SURVEILLANCE INVESTIGATOR, SHAMIR, and the DPA. The SURVEILLANCE INVESTIGATOR, SHAMIR, and the DPA are all dampened with biphasic Doppler waveforms. Mild to moderate plaque noted throughout the arteries of the right lower extremity. * Left: * 20-49 % stenosis of the profunda, 182 cm/s. Patency of the PLASTIC SURGERY COORDINATOR, profunda,SFA, popliteal artery, SURVEILLANCE INVESTIGATOR, SHAMIR, and the DPA. The SURVEILLANCE INVESTIGATOR, SHAMIR, and the DPA are all dampened with biphasic Doppler waveforms. Mild to moderate plaque noted throughout the arteries of the left lower extremity. Assessment and Plan: Ashley was seen today for peripheral arterial disease (pad). Diagnoses and all orders for this visit: PAD (peripheral artery disease) - [facility] LOWER EXTREMITY ARTERIAL DUPLEX COMPLETE; Future Primary hypertension Comments: BP well controlled Chronic obstructive pulmonary disease, unspecified COPD type (HCC) Peripheral vascular angioplasty status with implants and grafts - [facility] LOWER EXTREMITY ARTERIAL DUPLEX COMPLETE; Future S/P insertion of iliac artery stent Ashley was seen today for a follow up for PAD. She is status post LLE arterial thrombolysis due to left heel ulcer 12/28-12/29/24. She reports doing well. Denies leg pain with ambulation. She is followingwith Dr. Pelletier weekly for the left heel ulcer. She reports it is slowly healing. She is changing the dressing every other day. Denies issues with the right groin access site. Upon exam, the left foot is warm and pink. Ulcer to the left heel, no erythema or drainage. She is doing well post lysis. Arterial blood flow to the left foot is optimized and she should be able to heal the foot ulcer. Continue local wound care and follow ups with Dr. Pelletier. Follow up: VALERIE when able, OV 3 months She was advised to call for any new symptoms including pain, numbness, discoloration or tissue loss. Dr. Wong was the supervising physician during today's office visit Nette Jalloh APRN Cosigned by Kashif Wong MD at 02/07/2025 10:53 AM EDT Associated attestation - Kashif Wong MD - 02/07/2025 10:53 AM EDT I have provided supervision as needed. I provided medical management, monitoring and treatment of this patient. Kashif Wong MD Vascular Surgery 02/07/25 documented in this encounter Plan of Treatment Upcoming Encounters Date Type Department Care Team (Late st Contact Info) Description 03/20/2025 3:45 PM EDT Office Visit [facility] [address] [place] [phone] Vishnu Penn MD [address] [place] [address] [id number] 03/26/2025 1:15 PM EDT Appointment [facility] [address] [place] [address] Cristi Pelletier, DPM [address] [phone] 05/10/2025 10:20 AM EDT Office Visit [facility] V[facility] S[facility] [address] [place] [address] [place] [phone] Nette Jalloh APRN [address] [place] [address] [phone] 11/12/2025 1:30 PM EST Appointment [facility] [address] [place] [address] [place] [phone] Nette Jalloh APRN [address] [place] [phone] 11/12/2025 2:40 PM EST Office Visit [facility] S[facility] [address] [place] [phone] Nette Jalloh METER/RELAY CRAFTSMAN [address] [place] [address] documented as of this encounter Goals Goal [...] tibial pulses. documented as of this encounter Results * [facility] LOWER EXTREMITY ARTERIAL DUPLEX COMPLETE (02/20/2025 2:08 PM EDT) Anatomical Region Laterality Modality Vascular, Leg Electrocardiogra phy 02/20/2025 1:19 PM EDT Impressions 02/20/2025 2:26 PM EDT Conclusions * Right: * RODOLFO: 0.63 (DPA, distal SURVEILLANCE INVESTIGATOR occluded) / TBI: 0, absent waveform. There is an occlusion of the distal posterior tibial artery. Dampened, biphasic flow of the proximal and mid posterior tibial artery. Mild to moderate plaque noted in the arteries of the right lower extremity. * Left: * RODOLFO: 1.29 (SURVEILLANCE INVESTIGATOR) / TBI: 0, metatarsal amputation. 20-49 % stenosis of the profunda, 145 cm/s. There is an occlusion of the proximal anterior tibial artery and the mid peroneal artery. Mild to moderate plaque noted in the arteries of the left lower extremity. Narrative Procedure Note Eusebio De Leon MD - 02/20/2025 IMPRESSION Conclusions * Right: * RODOLFO: 0.63 (DPA, distal SURVEILLANCE INVESTIGATOR occluded) / TBI: 0, absent waveform. Thereis an occlusion of the distal posterior tibial artery. Dampened, biphasicflow of the proximal and mid posterior tibial artery. Mild to moderate plaquenoted in the arteries of the right lower extremity. * Left: * RODOLFO: 1.29 (SURVEILLANCE INVESTIGATOR) / TBI: 0, metatarsal amputation. 20-49 % stenosis ofthe profunda, 145 cm/s. There is an occlusion of the proximal anteriortibial artery and the mid peroneal artery. Mild to moderate plaque noted in the arteries of the left lower extremity. Nette Jalloh APRN IMG VASCULAR ORDERABLES Final R esult documented in this encounter Visit Diagnoses Diagnosis PAD (peripheral artery disease)- Primary Unspecified disorders of arteries and arterioles Primary hypertension Unspecified essential hypertension Chronic obstructive pulmonary disease, unspecified COPD type (HCC) Peripheral vascular angioplasty status with implants and grafts S/P insertion of iliac artery stent Other postprocedural status PAD (peripheral artery disease) Unspecified disorders of arteries and arterioles Peripheral vascular angioplasty status with implants and grafts documented in this encounter Care Teams Sales And Service Representative Relationship Specialty Start Date End Date William Hunter MD [address] [place] [address] [place] [phone] PCP - General Internal Medicine-Adolescent Medicine 05/28/23 González Gotti MD [address] [place] [address] [place] [phone] Consulting Physician Internal Medicine - Clinical Cardiac Electrophysiology 04/05/17 Cristi Cleaning MD [address] [place] [address] Physician Internal Medicine-Cardiovascular Disease 04/05/17 documented as of this encounter
--- OUTSIDE RECORDS SUMMARY | 2025-02-12 14:25 | XMS_ITS | Encounter Summary ---
Author Organization [facility] [place] [address] Care Team Providers Care Chute Tender Name Role Phone González Gotti MD Unavailable [phone] Cristi Cleaning MD Unavailable [phone] William Hunter MD Primary Care Provider [phone] Reason for Referral * In Office Procedure (Routine) - Pending Review Specialty Diagnoses / Procedures Referred By Contac t Referred To Contact Diagnoses 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) Stage III pressure ulcer of left heel (HCC) Procedures LA DEBRIDEMENT SUBCUTANEOUS TISSUE 1ST 20 SQ CM/< Cristi Pelletier DPM [address] [address] Phone: tel: fax: Referral ID Status Reason Start Date Expiration Date V isits Requested Visits Authorized [id number] Pending Review 02/15/2025 02/15/2026 1 1 * (Routine) - Pending Review Specialty Diagnoses / Procedures Referred By Contac t Referred To Contact Diagnoses Stage III pressure ulcer of left heel (HCC) Procedures [facility] PRIMARY DRESSING Cristi Pelletier DPM [address] [address] Phone: tel: fax: Referral ID Status Reason Start Date Expiration Date V isits Requested Visits Authorized [id number] Pending Review 02/13/2025 02/13/2026 1 1 Reason for Visit * Reason Comments Wound Check * Consultation (Routine) - Authorization Not Needed Specialty Diagnoses / Procedures Referred By Brian t Referred To Contact Wound Care Diagnoses Wound Care Procedures LA DEBRIDEMENT SUBCUTANEOUS TISSUE 1ST 20 SQ CM/< LA DEBRIDEMENT MUSCLE &/FASCIA 1ST 20 SQ CM/< LA DEBRIDEMENT BONE 1ST 20 SQ CM/< LA DEBRIDEMENT SUBCUTANEOUS TISSUE EA ADDL 20 SQ CM LA DEBRIDEMENT MUSCLE &/FASCIA EA ADDL 20 SQ CM LA DEBRIDEMENT BONE EACH ADDITIONAL 20 SQ CM LA DEBRIDEMENT OPEN WOUND FIRST 20 SQ CM/< LA DEBRIDEMENT OPN WND EA ADDL 20 SQ CM/PRT THEREOF [facility] [address] [place] [address] Phone: tel: fax: Referral ID Status Reason Start Date Expiration Date Visits Requested Visits Authorized [id number] Authorization Not Needed Specialty Services Required 5 01/08/2026 99 99 Encounter Details Date Type Department Care Team (Latest Contact Info) Description 02/12/2025 2:25 PM EDT - 02/12/2025 11:59 PM EDT Hospital Encounter [facility] [address] [place] [address] Cristi Pelletier DPM [address] [phone] Atherosclerosis of artery of extremity [...] drink = 0.6 oz pur e alcohol) [facility] Utilities Answer Date Recorded In the past 12 months has [facility] [employer], oil, or water [employer] threatened to shut off services in your home? No 12/28/2024 Overall Financial Resource Strain (CARDIA) Answe r Date Recorded How hard is it for you to pa y for the very basics like food, housing, medical care, and heating? Not hard at all 12/28/2024 PHQ-2 Answer Date Recorded PHQ-2 Total Score 0 12/28/2024 [facility] - Occupational Stress Questionnaire Answer [...] things needed for daily living? No 05/29/2023 [facility] IP Transportation Answer D ate Recorded [...] days. fluticasone propionate (FLONASE) 50 mcg/actuation Nasl [place], Suspension 1 spay each nostril twice daily [...] EDT 06/11/2023 oxymetazoline (AFRIN) 0.05 % Nasl [place], Non-Aerosol 1 [place] by Nasal route as needed for Congestion [...] Bradycardia CAD (coronary artery disease) Cardiac pacemaker [facility] Dual PPM 11/05/2016 - Dr. Cleaning Chronic systolic heart failure ([facility]) COPD (chronic obstructive pulmonary disease) ([facility]) Depression with anxiety Emphysema, unspecified (HCC) Essential hypertension Headache Heartburn History of cardiac cath 03/23/2017 Stent placed in Right leg 03/23/2017 HLD (hyperlipidemia) Hypertension IA (myocardial infarction) ([facility]) 06/2016 Pacemaker Post-operative nausea and vomiting Sinus node dysfunction ([facility]) [facility] Dual PPM 11/05/2016 - Dr. Cleaning STEMI (ST elevation myocardial infarction) ([facility]) STEMI with 3 NORI to RCA Systolic heart failure ([facility]) 02/2017 ECHO, EF 25% Past Surgical History: Procedure Laterality Date CARDIAC CATHETERIZATION Right 03/23/2017 stent placed in right leg CARDIAC PACEMAKER PLACEMENT 11/05/2016 [facility] Dual PPM COLONOSCOPY CORONARY ANGIOPLASTY WITH STENT PLACEMENT 06/2016 x3 DEBRIDEMENT Left 05/19/2023 .; Surgeon: Jabari Hill DPM; Location: [facility] MAIN OR; Service: Orthopedics FEMUR FRACTURE SURGERY Right right femur fx repair FOOT SURGERY FOOT SURGERY Left 12/23/2022 Left foot heel and second and third toe debridement with application of skin graft substitute. ; Surgeon: Jabari Hill DPM; Location: [facility] MAIN OR; Service: Orthopedics FOOT SURGERY Left 02/10/2023 Surgeon: Jabari Hill DPM; Location: [facility] MAIN OR; Service: Orthopedics FOOT SURGERY Left 06/06/2023 left FOOT TRANSMETATARSAL amputation; Surgeon: Jabari Hill DPM; Location: [facility] MAIN OR; Service: Podiatry HAMMER TOE SURGERY Left 06/15/2022 Left foot Correction of hammer toe deformity with arthroplasty second and third toe. Left foot Application of skin graft substitute.; Surgeon: Jabari Hill DPM; Location: [facility] MAIN OR; Service: Podiatry HIP SURGERY IR [...] REVAS FEM POP ART UNILAT W FLASK CARRIER 03/13/2022 IR REVAS FEM POP ART UNILAT W FLASK CARRIER 03/13/2022 Kashif Wong MD [facility] IR IR REVAS FEM POP ART UNILAT W FLASK CARRIER 06/02/2023 IR REVAS FEM POP ART UNILAT W FLASK CARRIER 06/02/2023 Vishnu Penn MD [facility] IR IR REVAS FEM POP ART UNILAT W FLASK CARRIER 12/28/2024 IR REVAS FEM POP ART UNILAT W FLASK CARRIER 12/28/2024 Vishnu Penn MD [facility] IR IR [...] 05/19/2023 .; Surgeon: Jabari Hill DPM; Location: [facility] MAIN OR; Service: Orthopedics SKIN GRAFT Left 06/15/2022 Surgeon: Jabari Hill DPM; Location: [facility] MAIN OR; Service: Podiatry SKIN GRAFT Left 12/23/2022 . ; Surgeon: Jabari Hill DPM; Location: [facility] MAIN OR; Service: Orthopedics SKIN GRAFT 02/10/2023 Surgeon: Jabari Hill DPM; Location: [facility] MAIN OR; Service: Orthopedics TOE AMPUTATION Left 02/10/2023 Left foot second toe amputation, Left foot excisional debridement with application of skin graft substitute; Surgeon: Jabari Hill DPM; Location: [facility] MAIN OR; Service: Orthopedics TOE AMPUTATION Left 05/19/2023 Left foot, amputation of third toe. Left foot, wound debridment application. Left foot, skin graft substitute. Left foot wound debridment closure.; Surgeon: Jabari Hill DPM; Location: [facility] MAIN OR; Service: Orthopedics Current Outpatient Medications [...] days. fluticasone propionate (FLONASE) 50 mcg/actuation Nasl [place], Suspension 1 spay each nostril twice daily [...] Tablet 0 oxymetazoline (AFRIN) 0.05 % Nasl [place], Non-Aerosol 1 [place] by Nasal route as needed for Congestion (30 min. prior to HBO2-PRN, difficulty clearing ears.). (Patient not taking: Reported on 02/07/2025) No current facility-administered medications for this encounter. Allergies Allergen Reactions Atorvastatin Myalgia Ezetimibe Myalgia Rosuvastatin Myalgia Simvastatin Myalgia Pfnpirf-Lcf-Bom Reductase Inhibitors Other (See Comments) Joint pain [...] artery of extremity with ulceration (HCC) - LA DEBRIDEMENT SUBCUTANEOUS TISSUE 1ST 20 SQ CM/< Stage III pressure ulcer of left heel (HCC) - [facility] PRIMARY DRESS[facility] - LA DEBRIDEMENT SUBCUTANEOUS TISSUE 1ST 20 SQ CM/< [...] TMA site- paint with betadine daily. 01/08 [facility] has been contacted to obtain [...] free to reach out to our rn community health, Hanna Riggs at [phone] for any discussion. WHO TO CALL FOR PROBLEMS: Please call the OP wound care center with any problems or issues you may have after your visit or though the week. Each patient is assigned a housing case manager who can assist with issues you may be having. Individual office numbers are listed below. Press 1 for immediate or schedule needs, press 2 for the nursing line. The nurse line is for non-emergent needs and will be answered within 24 hours duringbusiness days. If you have a more immediate concern, press option #1. Office numbers: [phone] Bailey ClaudioEzoaab-[phone] [facility] [phone] Our offices do not have an on-call provider. If you have emergent needs after hours please contact your primary care provider. You may also utilize the [facility] Nurse NOW Helpline: [phone] for after-hours needs to get in contact with a nurse for assistance. documented in this encounter Plan of Treatment Upcoming Encounters Date Type Department Care Team (Late st Contact Info) Description 03/20/2025 3:45 PM EDT Office Visit [facility] [address] [place] [address] [place] [phone] Vishnu Penn MD [address] [place] [address] [address] [place] [address] 03/26/2025 1:15 PM EDT Appointment [facility] [address] [place] [address] Cristi Pelletier, DPM [address] [phone] 05/10/2025 10:20 AM EDT Office Visit [facility] [address] [facility] [address] [place] [address] [place] [address] 11/12/2025 1:30 PM EST Appointment [facility]ASC[facility] [address] [place] [address] [address] [place] [address] [place], [place] [phone] 11/12/2025 2:40 PM EST Office Visit [facility] [address] [facility] [address] [place] [address] [place], [place] [phone] Scheduled Orders Name Type Priority Associated Diagnoses Orde r Schedule LA DEBRIDEMENT SUBCUTANEOUS TISSUE 1ST 20 SQ CM/< LA Charge Routine Atherosclerosis of artery of extremity [...] 02/13/2025 documented in this encounter Care Teams Chute Tender Relationship Specialty Start Date End Date William Hunter MD [address] [place] [address] [address] [place] [phone] PCP - General Internal Medicine-Adolescent Medicine 05/28/23 González Gotti MD [address] [place] [address] [place] [id number] Consulting Physician Internal Medicine - Clinical Cardiac Electrophysiology 04/05/17 Cristi Cleaning MD [address] [place] [address] [address] MARTINEZ [place] [phone] Physician Internal Medicine-Cardiovascular Disease 04/05/17 documented as of this encounter
--- OUTSIDE RECORDS SUMMARY | 2025-02-20 12:55 | XMS_ITS | Encounter Summary ---
Author Organization [place] [address] Care Team Providers Care Salon Coordinator Name Role Phone González Gotti MD Unavailable [phone] Cristi Cleaning MD Unavailable [phone] William Hunter MD Primary Care Provider [phone] Reason for Referral * Vascular Imaging (Routine) - Closed Specialty Diagnoses / Procedures Referred By Brian villavicencio Referred To Contact Radiology Diagnoses PAD (peripheral artery disease) Peripheral vascular angioplasty status with implants and grafts Procedures [facility]OWER EXTREMITY ARTERIAL DUPLEX COMPLETE Nette Jalloh APRN [address] [place] [address] [place] [address] Phone: tel: fax: Referral ID Status Reason Start Date Expiration Date Visits Re quested Visits Authorized [id number] Closed 02/07/2025 02/07/2026 1 1 Reason for Visit * Vascular Imaging (Routine) - Closed Specialty Diagnoses / Procedures Referred By Brian villavicencio Referred To Contact Radiology Diagnoses PAD (peripheral artery disease) Peripheral vascular angioplasty status with implants and grafts Procedures [facility] LOWER EXTREMITY ARTERIAL DUPLEX COMPLETE Nette Jalloh APRN [address] [place] [address] [place] [id number] Phone: tel: fax: Referral ID Status Reason Start Date Expiration Date Visits Re quested Visits Authorized [id number] Closed 02/07/2025 02/07/2026 1 1 Encounter Details Date Type Department Care Team (Latest Contact Info) Description 02/20/2025 12:55 PM EDT - 02/20/2025 11:59 PM EDT Hospital Encounter [facility] [address] [place] [address] January, Nette Rand, ENGINE REPAIR SUPERVISOR [address] [place] [address] PAD (peripheral artery disease); Peripheral vascular angioplasty status with implants and grafts Discharge Disposition: Home or Self Care Social History Tobacco Use Types Packs/Day Years Used Date Smoking Tobacco: Former Cigarettes 0.3 40 0 12/26/1981 - 12/26/2021 Passive Smoke Exposure: Past Smokeless Tobacco: Never Alcohol Use Standard Drinks/Week Comments Not Currently 0 (1 standard drink = 0.6 oz pur e alcohol) [facility] Utilities Answer Date Recorded In the past 12 months has [employer] electric, gas, oil, or water [employer] threatened to shut off services in your home? No 12/28/2024 Overall Financial Resource Strain (CARDIA) Answe r Date Recorded How hard is it for you to pa y for the very basics like food, housing, medical care, and heating? Not hard at all 12/28/2024 PHQ-2 Answer Date Recorded PHQ-2 Total Score 0 12/28/2024 [facility] [place] [facility] - Occupational Stress [...] things needed for daily living? No 05/29/2023 [facility] Transportation Answer D ate Recorded [...] days. fluticasone propionate (FLONASE) 50 mcg/actuation Nasl [place], Suspension 1 spay each nostril twice daily [...] EDT 06/11/2023 oxymetazoline (AFRIN) 0.05 % Nasl [place], Non-Aerosol 1 [place] by Nasal route as needed for Congestion [...] EDT Office Visit [facility] [address] [place] [address] [place] [phone] Vishnu Penn MD [address] [place] [address] 03/26/2025 1:15 PM EDT Appointment [facility] [place] [address] [address] [facility] [place] [address] Cristi Pelletier, DPJeremi [address] [address] 05/10/2025 10:20 AM EDT Office Visit [facility] [address] [place] [address] [place] [phone] Nette Jalloh APRN [address] [place] [address] 11/12/2025 1:30 PM EST Appointment [facility] [address] [facility] [address] [place] [address] Nette Jalloh APRN [address] [place] [address] 11/12/2025 2:40 PM EST Office Visit [facility] [address] [facility] [address] [place] [address] Nette Jalloh APRN [address] [place], [place] [id number] documented as of this encounter Goals Goal [...] Procedure Name Priority Date/Time Associated Diagnosis Comments [facility] LOWER EXTREMITY ARTERIAL DUPLEX COMPLETE Routine 02/20/2025 2:08 PM EDT PAD (peripheral artery disease) Peripheral vascular angioplasty status with implants and grafts documented in this encounter Results * [facility] LOWER EXTREMITY ARTERIAL DUPLEX COMPLETE (02/20/2025 2:08 PM EDT) Anatomical Region Laterality Modality Vascular, Leg Electrocardiogra phy 02/20/2025 1:19 PM EDT Impressions 02/20/2025 2:26 PM EDT Conclusions * Right: * RODOLFO: 0.63 (DPA, distal SCRAP STRIPPER HAND occluded) / TBI: 0, absent waveform. There is an occlusion of the distal posterior tibial artery. Dampened, biphasic flow of the proximal and mid posterior tibial artery. Mild to moderate plaque noted in the arteries of the right lower extremity. * Left: * RODOLFO: 1.29 (SCRAP STRIPPER HAND) / TBI: 0, metatarsal amputation. 20-49 % stenosis of the profunda, 145 cm/s. There is an occlusion of the proximal anterior tibial artery and the mid peroneal artery. Mild to moderate plaque noted in the arteries of the left lower extremity. Narrative Procedure Note Eusebio De Leon MD - 02/20/2025 IMPRESSION Conclusions * Right: * RODOLFO: 0.63 (DPA, distal SCRAP STRIPPER HAND occluded) / TBI: 0, absent waveform. Thereis an occlusion of the distal posterior tibial artery. Dampened, biphasicflow of the proximal and mid posterior tibial artery. Mild to moderate plaquenoted in the arteries of the right lower extremity. * Left: * RODOLFO: 1.29 (SCRAP STRIPPER HAND) / TBI: 0, metatarsal amputation. 20-49 % [...] grafts documented in this encounter Care Teams Salon Coordinator Relationship Specialty Start Date End Date Besson, William A, MD [address] [place] [phone] PCP - General Internal Medicine-Adolescent Medicine 05/28/23 González Gotti MD [address] [place] [address] [address] [place] [id number] Consulting Physician Internal Medicine - Clinical Cardiac Electrophysiology 04/05/17 Cristi Cleaning MD [address] [place] [address] [place] [address] Physician Internal Medicine-Cardiovascular Disease 04/05/17 documented as of this encounter
--- OUTSIDE RECORDS SUMMARY | 2025-02-26 15:15 | XMS_ITS | Encounter Summary ---
Author Organization [place] [address] Care Team Providers Care Nephrology Nurse Name Role Phone González Gotti MD Unavailable [phone] Cristi Cleaning MD Unavailable [phone] William Hunter MD Primary Care Provider [phone] Reason for Referral * Surgical (Routine) - Pending Review Specialty Diagnoses / Procedures Referred By Contac t Referred To Contact Surgery-Vascular Surgery / Vascular Surgery Diagnoses 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) Procedures OR OFFICE/OUTPATIENT NEW MODERATE MDM 45 MINUTES Kirt Dolan DPM [address] [address] Phone: tel: fax: Vishnu Penn MD [address] [place] [address] [address] [place] [address] Phone: tel: fax: Referral ID Status Reason Start Date Expiration Date Visits Requested Visits Authorized [id number] Pending Review Specialty Services Required 02/26/2025 02/26/2026 1 1 Comments Recent RODOLFO's, established patient, claudication pain RLE * (Routine) - Pending Review Specialty Diagnoses / Procedures Referred By Contac t Referred To Contact Diagnoses Stage III pressure ulcer of left heel (HCC) Procedures [facility] PRIMARY DRESSING Kirt Dolan DPM [address] [place] [id number] Phone: tel: fax: Referral ID Status Reason Start Date Expiration Date V isits Requested Visits Authorized [id number] Pending Review 02/26/2025 02/26/2026 1 1 Reason for Visit * Reason Comments Wound Check * Consultation (Routine) - Authorization Not Needed Specialty Diagnoses / Procedures Referred By Brian t Referred To Contact Wound Care Diagnoses Wound Care Procedures OR DEBRIDEMENT SUBCUTANEOUS TISSUE 1ST 20 SQ CM/< OR DEBRIDEMENT MUSCLE &/FASCIA 1ST 20 SQ CM/< OR DEBRIDEMENT BONE 1ST 20 SQ CM/< OR DEBRIDEMENT SUBCUTANEOUS TISSUE EA ADDL 20 SQ CM OR DEBRIDEMENT MUSCLE &/FASCIA EA ADDL 20 SQ CM OR DEBRIDEMENT BONE EACH ADDITIONAL 20 SQ CM OR DEBRIDEMENT OPEN WOUND FIRST 20 SQ CM/< OR DEBRIDEMENT OPN WND EA ADDL 20 SQ CM/PRT THEREOF [facility] [place] [address] [address] [facility] [place] [address] Phone: tel: fax: Referral ID Status Reason Start Date Expiration Date Visits Requested Visits Authorized [id number] Authorization Not Needed Specialty Services Required 5 01/08/2026 99 99 Encounter Details Date Type Department Care Team (Late st Contact Info) Description 02/26/2025 3:15 PM EDT - 02/26/2025 11:59 PM EDT Hospital Encounter [facility] [address] [place] [address] Kirt Dolan DPM [address] [place] [id number] Ischemic ulcer of left foot with fat layer exposed (HCC) (Primary Dx); 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); Stage III pressure ulcer of left heel (HCC); PAD (peripheral artery disease); Claudication of right lower extremity Discharge Disposition: Home or Self Care Social History Tobacco Use Types Packs/Day Years Used Date Smoking Tobacco: Former Cigarettes 0.3 40 0 12/26/1981 - 12/26/2021 Passive Smoke Exposure: Past Smokeless Tobacco: Never Alcohol Use Standard Drinks/Week Comments Not Currently 0 (1 standard drink = 0.6 oz pur e alcohol) [facility] Utilities Answer Date Recorded In the [...] Date Recorded PHQ-2 Total Score 0 12/28/2024 [facility] - Occupational Stress [...] things needed for daily living? No 05/29/2023 [facility] IP Transportation Answer D ate Recorded [...] Sign Reading Time Taken Comments Blood Pressure 133/73 02/26/2025 3:56 PM EDT Pulse 72 02/26/2025 3:56 PM EDT Temperature 36.3 C (97.4 F) 02/26/2025 3:56 PM EDT Respiratory Rate 18 02/26/2025 3:56 PM EDT Oxygen Saturation - - Inhaled [...] days. fluticasone propionate (FLONASE) 50 mcg/actuation Nasl [place], Suspension 1 spay each nostril twice daily [...] EDT 06/11/2023 oxymetazoline (AFRIN) 0.05 % Nasl [place], Non-Aerosol 1 [place] by Nasal route as needed for Congestion [...] documented in this encounter Progress Notes * Kirt Dolan, ROGER - 02/26/2025 3:15 PM EDT Date of Visit:02/26/2025 Progress Note HPI Ashley Ding is a 59 y.o. year old female patient who presents today for wound evaluation and follow-up. Patient has a ischemic/pressure ulcer(s) which is (are) located on the plantar left heel. Symptoms include denies redness or purulent drainage. Patient notes that her left heel ulcer is stable. No signs of infection. Dressing wound as instructed. Patient is status post arterial thrombolysis due to left heel ulcer 12/28-12/29/24. Patient has new complaint of acutely worsening pain to the right lower extremity. She states that she is finding it difficult to walk from the parking lot to the hospital without developing cramping in her right leg. She feels like this is getting worse. Denies any new wounds or ulcerations, or skin discoloration of the right lower extremity. Recently had an arterial ultrasound performed. She is established with vascular. Recently had an appointment on 02/07/2025. Past Medical History: Diagnosis Date Anesthesia complication only with phenergan, alarming how long it takes her to wake up Asthma Bradycardia CAD (coronary artery disease) Cardiac pacemaker 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 Cleaning Chronic systolic heart failure (HCC) COPD (chronic obstructive pulmonary disease) (HCC) Depression with anxiety Emphysema, unspecified (HCC) Essential hypertension Headache Heartburn History of cardiac cath 03/23/2017 Stent placed in Right leg 03/23/2017 HLD (hyperlipidemia) Hypertension DC (myocardial infarction) ([facility]) 06/2016 Pacemaker Post-operative nausea and vomiting Sinus node dysfunction ([facility]) 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 Cleaning STEMI (ST elevation myocardial infarction) ([facility]) STEMI with 3 NORI to RCA Systolic heart failure ([facility]) 02/2017 ECHO, EF 25% Patient Active Problem List Diagnosis Date Noted Claudication of right lower extremity 02/26/2025 Stage III pressure ulcer of left heel ([facility]) 01/09/2025 Critical limb ischemia of both lower extremities ([facility]) 12/28/2024 DVT, lower extremity, distal, acute, left ([facility]) 12/27/2024 Former smoker-quit 202112/08/2024 Abnormal ankle brachial [...] situ 12/07/2023 Insomnia 12/07/2023 Kidney stone 12/07/2023 emt intermediate current use of anticoagulant therapy 12/07/2023 Neuropathy 12/07/2023 Non-pressure chronic ulcer of skin of other sites with unspecified severity ([facility]) 12/07/2023 Palpitations 12/07/2023 Atrial fibrillation with rapid ventricular response ([facility]) 12/07/2023 Seasonal allergic rhinitis 12/07/2023 Sinusitis 12/07/2023 Stented coronary artery 12/07/2023 Typical angina 12/07/2023 Ventricular fibrillation (HCC) 12/07/2023 Ventricular fibrillation seen on monitor technician ([facility]) 12/07/2023 Ventricular tachyarrhythmia (HCC) 12/07/2023 Failed flap 06/28/2023 Skin flap necrosis (HCC) 06/28/2023 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) 06/02/2023 PAD (peripheral artery disease) 06/01/2023 S/P foot surgery 06/01/2023 Cellulitis of left lower extremity 05/28/2023 Open wound of left foot 04/26/2023 Hammertoe of left foot 06/08/2022 Pain in left foot 06/08/2022 Gangrene of left foot (HCC) 06/08/2022 Vaping nicotine dependence, non-tobacco product 03/05/2022 COPD (chronic obstructive pulmonary disease) ([facility]) HLD (hyperlipidemia) Hypertension Emphysema, unspecified CAD (coronary artery disease) Cardiac pacemaker History of cardiac cath Depression with anxiety Essential hypertension Chronic systolic heart failure ([facility]) Sinus node dysfunction ([facility]) Bradycardia Past Surgical History: Procedure Laterality Date CARDIAC CATHETERIZATION Right 03/23/2017 stent placed in right leg CARDIAC PACEMAKER PLACEMENT 11/05/2016 SJM Dual PPM COLONOSCOPY CORONARY ANGIOPLASTY WITH STENT PLACEMENT 06/2016 x3 DEBRIDEMENT Left 05/19/2023 .; Surgeon: Jabari Hill DPM; Location: [facility] MAIN OR; Service: Orthopedics FEMUR FRACTURE SURGERY Right right femur fx repair FOOT SURGERY FOOT SURGERY Left 12/23/2022 Left foot heel and second and third toe debridement with application of skin graft substitute. ; Surgeon: Jabari Hill DPM; Location: [facility] OR; Service: Orthopedics FOOT SURGERY Left 02/10/2023 Surgeon: Jabari Hill DPM; Location: [facility] OR; Service: Orthopedics FOOT SURGERY Left 06/06/2023 left FOOT TRANSMETATARSAL amputation; Surgeon: Jabari Hill DPM; Location: [facility] OR; Service: Podiatry HAMMER TOE SURGERY Left 06/15/2022 Left foot Correction of hammer toe deformity with arthroplasty second and third toe. Left foot Application of skin graft substitute.; Surgeon: Jabari Hill DPM; Location: [facility] OR; Service: Podiatry HIP SURGERY [...] IR REVAS FEM POP ART UNILAT W FUDGE CANDY MAKER 03/13/2022 IR REVAS FEM POP ART UNILAT W FUDGE CANDY MAKER 03/13/2022 Kashif Wong MD EDG IR IR REVAS FEM POP ART UNILAT W FUDGE CANDY MAKER 06/02/2023 IR REVAS FEM POP ART UNILAT W FUDGE CANDY MAKER 06/02/2023 Vishnu Penn MD EDG IR IR REVAS FEM POP ART UNILAT W FUDGE CANDY MAKER 12/28/2024 IR REVAS FEM POP ART UNILAT W FUDGE CANDY MAKER 12/28/2024 Vishnu Penn MD EDG IR IR [...] 05/19/2023 .; Surgeon: Jabari Hill DPM; Location: [facility] OR; Service: Orthopedics SKIN GRAFT Left 06/15/2022 Surgeon: Jabari Hill DPM; Location: [facility] OR; Service: Podiatry SKIN GRAFT Left 12/23/2022 . ; Surgeon: Jabari Hill DPM; Location: [facility] OR; Service: Orthopedics SKIN GRAFT 02/10/2023 Surgeon: Jabari Hill DPM; Location: [facility] OR; Service: Orthopedics TOE AMPUTATION Left 02/10/2023 Left foot second toe amputation, Left foot excisional debridement with application of skin graft substitute; Surgeon: Jabari Hill DPM; Location: [facility] OR; Service: Orthopedics TOE AMPUTATION Left 05/19/2023 Left foot, amputation of third toe. Left foot, wound debridment application. Left foot, skin graft substitute. Left foot wound debridment closure.; Surgeon: Jabari Hill DPM; Location: [facility] OR; Service: Orthopedics Family History [...] use: Not Currently Current Outpatient Medications Medication Sig Dispense Refill [...] -- (Patient not taking: Reported on 02/07/2025) apixaban (ELIQUIS) 5 mg Oral Tablet Take [...] days. fluticasone propionate (FLONASE) 50 mcg/actuation Nasl [place], Suspension 1 spay each nostril twice daily 1 Each 3 gabapentin (NEURONTIN) 300 mg Oral Capsule Take 300 mg by mouth 2 times daily. Takes every other day. hydroCHLOROthiazide (MICROZIDE) 12.5 mg Oral Capsule Take 25 mg by mouth daily. hydrOXYzine (ATARAX) 25 mg Oral Tablet 1 tab(s) orally 2 times a day for 30 days (Patient not taking: Reported on 02/07/2025) isosorbide mononitrate (IMDUR) 120 mg Oral Tablet [...] Tablet 0 oxymetazoline (AFRIN) 0.05 % Nasl [place], Non-Aerosol 1 [place] by Nasal route as needed for Congestion (30 min. prior to HBO2-PRN, difficulty clearing ears.). (Patient not taking: Reported on 02/07/2025) pantoprazole (PROTONIX) 40 mg Oral Tablet, Delayed Release (E.C.) Take 40 mg by mouth daily. Ranolazine 1,000 mg Oral Tablet Sustained Release 12 hr Take 1 Tablet by mouth 2 times daily. rOPINIRole (REQUIP) 1 mg Oral Tablet Take 1 mg by mouth nightly. VITAMIN B COMPLEX ORAL Take 1 Tablet by mouth daily. No current facility-administered medications for this encounter. Current Outpatient Medications on File Prior to Encounter Medication Sig Dispense Refill albuterol (PROVENTIL HFA;VENTOLIN [...] -- (Patient not taking: Reported on 02/07/2025) apixaban (ELIQUIS) 5 mg Oral Tablet Take [...] days. fluticasone propionate (FLONASE) 50 mcg/actuation Nasl [place], Suspension 1 spay each nostril twice daily 1 Each 3 gabapentin (NEURONTIN) 300 mg Oral Capsule Take 300 mg by mouth 2 times daily. Takes every other day. hydroCHLOROthiazide (MICROZIDE) 12.5 mg Oral Capsule Take 25 mg by mouth daily. hydrOXYzine (ATARAX) 25 mg Oral Tablet 1 tab(s) orally 2 times a day for 30 days (Patient not taking: Reported on 02/07/2025) isosorbide mononitrate (IMDUR) 120 mg Oral Tablet [...] Tablet 0 oxymetazoline (AFRIN) 0.05 % Nasl [place], Non-Aerosol 1 [place] by Nasal route as needed for Congestion (30 min. prior to HBO2-PRN, difficulty clearing ears.). (Patient not taking: Reported on 02/07/2025) pantoprazole (PROTONIX) 40 mg Oral Tablet, Delayed Release (E.C.) Take 40 mg by mouth daily. Ranolazine 1,000 mg Oral Tablet Sustained Release 12 hr Take 1 Tablet by mouth 2 times daily. rOPINIRole (REQUIP) 1 mg Oral Tablet Take 1 mg by mouth nightly. VITAMIN B COMPLEX ORAL Take 1 Tablet by mouth daily. No current facility-administered medications on file prior to encounter. No outpatient medications have been marked as taking for the 02/26/25 encounter (Hospital Encounter) with Kirt Dolan DPM. Allergies Allergen Reactions Atorvastatin Myalgia Ezetimibe Myalgia Rosuvastatin Myalgia Simvastatin Myalgia Dobudkc-Rrz-Utf Reductase Inhibitors Other (See Comments) Joint pain Codeine Itching nausea Hydrocodone Itching nausea Phenergan [Promethazine] Other (See Comments) Made legs restless And also very sleepy ROS See HPI for further details. Relevant review of systems otherwise negative. Physical Exam Vitals: 02/26/25 1556 BP: 133/73 Pulse: 72 Resp: 18 Temp: 97.4 ??F (36.3 ??C) TempSrc: Forehead Nonpalpable pulses right. Palpable DP, nonpalpable PT left. Left foot is warm and well-perfused status post intervention. No acute ischemia or necrosis to the right lower extremity. Mild edema noted bilaterally. No calor. Full-thickness ulceration noted to the plantar left heel with exposed subcutaneous tissues. Mostly granular wound base. No ascending cellulitis or lymphangitis. No purulent material. Ulcer Progress and Procedure Please refer to the LDA for details of ulcer progress and procedure. Lab Results Component Value Date NA 136 12/30/2024 K 4.0 12/30/2024 CL 101 12/30/2024 CO2 23 12/30/2024 ANIONGAP 12 12/30/2024 CALCIUM 9.1 12/30/2024 GLU 153 (H) 12/30/2024 BUN 10 12/30/2024 CREATININE 0.80 12/30/2024 GFRCKDEPI 84 12/30/2024 Lab Results Component Value Date WBC 6.2 01/01/2025 RBC 3.46 (L) 01/01/2025 HGB 10.4 (L) 01/01/2025 HCT 31.5 (L) 01/01/2025 MCV 91.0 01/01/2025 MCH 30.1 01/01/2025 MCHC 33.0 01/01/2025 RDW 13.6 01/01/2025 PLT 186 01/01/2025 MPV 10.5 01/01/2025 Lab Results Component Value Date NA 136 12/30/2024 K 4.0 12/30/2024 CL 101 12/30/2024 CO2 23 12/30/2024 ANIONGAP 12 12/30/2024 CALCIUM 9.1 12/30/2024 GLU 153 (H) 12/30/2024 BUN 10 12/30/2024 CREATININE 0.80 12/30/2024 ALBUMIN 4.4 03/13/2022 PROT 6.9 03/13/2022 LABBILI 0.7 03/13/2022 ALT 10 03/13/2022 AST 15 03/13/2022 ALKPHOS 63 03/13/2022 GFRCKDEPI 84 12/30/2024 Lab Results Component Value Date HGBA1C 5.6 05/29/2023 ESTIMATEDAVE 114 05/29/2023 No results found for: CRP Lab Results Component Value Date SEDRATE 17 05/28/2023 MA US LOWER EXTREMITY ARTERIAL DUPLEX COMPLETE: 02/20/2025 Result Text IMPRESSION Conclusions * Right: * RODOLFO: 0.63 (DPA, distal FUDGE CANDY MAKER occluded) / TBI: 0, absent waveform. There is an occlusion of the distal posterior tibial artery. Dampened, biphasic flow of the proximal and mid posterior tibial artery. Mild to moderate plaque noted in the arteries of the right lower extremity. * Left: * RODOLFO: 1.29 (FUDGE CANDY MAKER) / TBI: 0, metatarsal amputation. 20-49 % stenosis of the profunda, 145 cm/s. There is an occlusion of the proximal anterior tibial artery and the mid peroneal artery. Mild to moderate plaque noted in the arteries of the left lower extremity. Assessment and Plan Ashley was seen today for wound check. Diagnoses and all orders for this visit: Ischemic ulcer of left foot with fat layer exposed (HCC) Atherosclerosis of artery of extremity with ulceration ([facility]) - [facility] REFERRAL TO VASCULAR SURGERY Stage III pressure ulcer of left heel (HCC) - [facility] PRIMARY DRESSING PAD (peripheral artery disease) Claudication of right lower extremity Other orders - lidocaine (XYLOCAINE) 5 % ointment 1. Continue standard ulcer therapy of this Arterial ulcer may include lab work: n/a,imaging:Xray, vascular testing:RODOLFO/Toe Pressures and TCOP2, and interventions of: Staged debridement, Edema control/ compression, Off- loading, and Appropriate dressing selection. 2. If, after 30 days of standard ulcertherapy, no significant wound area reduction has been achieved, potential advanced therapies to be considered for the treatment of this ulcer include:Cellular and tissue based products, Hyperbaric oxygen therapy, and Negative pressure wound therapy. 3. Discussed appropriate care of this ulcer: Prevention of reoccurrence. 4. Patient instructions were given 5. Follow- up 2 weeks. No debridement. Left heel ulceration clinically stable. Dressing: Continue collagen dressings. Request skin substitute grafts for left ulcer. Vascularly optimized left lower extremity. Arterial ultrasound reviewed, severe PAD right. Will refer back to vascular given acute deterioration, appreciate their help. Offloading of utmost importance. Check feet daily, do not walk barefoot. Tight glycemic management. Increase protein intake. Vascular, wound care charts reviewed. Imaging and relevant labs reviewed. All of the patient's questions, comments and concerns were addressed. Patient is agreeable to plan. Kirt Dolan DPM 02/26/2025 8:41 PM Disclaimer - This note was completed using voice recognition software and manual typing. It may contain unintended words, typos, etc. despite my review of the draft note prior to final signature. Please do not hesitate to contact me through the hospital paging system if there are questions or concerns. documented in this encounter Miscellaneous Notes * Patient Instructions - Balbina Tong RN - 02/26/2025 3:15 PM EDT HOME-CARE INSTRUCTIONS FOLLOWING YOUR WOUND [...] Left TMA site- paint with betadine daily. 02/26 Your physician has recommended a skin substitute to help your wound heal. We will send the appropriate information to your insurance company to see if a skin substitute will be covered. We will inform you of the insurance company's decision. This may take up to a week or more 01/08 [employer] has been contacted to obtain [...] free to reach out to our community health coordinator, Hanna Riggs at [phone] for any discussion. WHO TO CALL FOR PROBLEMS: Please call the OP wound care center with any problems or issues you may have after your visit or though the week. Each patient is assigned a bottle caser who can assist with issues you may be having. Individual office numbers are listed below. Press 1 for immediate or schedule needs, press 2 for the nursing line. The nurse line is for non-emergent needs and will be answered within 24 hours duringbusiness days. If you have a more immediate concern, press option #1. Office numbers: Sgeulgfkd-[phone] [place]-[phone] [place]- [phone] Our offices do not have an on-call provider. If you have emergent needs after hours please contact your primary care provider. You may also utilize the [facility] Nurse NOW Helpline: [phone]-NOW for after-hours needs to get in contact with a nurse for assistance. * Addendum Note - Balbina Tong RN - 02/26/2025 3:15 PM EDTEncounter addended by: Balbina Tong RN on: 02/27/2025 10:14 AM Actions taken: Flowsheet accepted, Charge Capture section accepted documented in this encounter Plan of Treatment Upcoming Encounters Date Type Department Care Team (Late st Contact Info) Description 03/20/2025 3:45 PM EDT Office Visit [facility] [address] [place] [address] [place] [phone] Vishnu Penn MD [address] [place] [address] [place] [phone] 03/26/2025 1:15 PM EDT Appointment [facility] [address] [place] [address] Cristi Pelletier, DPM [address] [phone] 05/10/2025 10:20 AM EDT Office Visit [facility] [address] [facility] [address] [place] [address] MayNette SUPERVISOR INSPECTING [address] [place] [address] [facility] [address] [place] [address] 11/12/2025 1:30 PM EST Appointment [facility] [address] [place] [address] [address] [place] [address] Nette Jalolh [address] [address] 11/12/2025 2:40 PM EST Office Visit [facility] [address] [place] [address] [address] [place] [address] OZUNA [address] [place] [phone] Scheduled Referrals Name Type Priority Associated Diagnoses Orde r Schedule AMB REFERRAL TO VASCULAR SURGERY Outpatient Referral Routine 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) Ordered: 02/26/2025 documented as of this encounter Goals Goal [...] as of this encounter Visit Diagnoses Diagnosis Ischemic ulcer of left foot with fat layer exposed (HCC)- Primary 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) Stage III pressure ulcer of left heel (HCC) Pressure ulcer, heel PAD (peripheral artery disease) Unspecified disorders of arteries and arterioles Claudication of right lower extremity Peripheral vascular disease, unspecified documented in this encounter Administered Medications Inactive Administered Medications - up to 1 most recent administrations Medication Order MAR Action Action Date Dose Rate Site lidocaine (XYLOCAINE) 5 % ointment Topical, ONCE, 1 dose, On Wed02/26/25 at 1600, Application site: foot Given 02/26/2025 4:03 PM EDT documented in this encounter Orders Medications Ordered That Daniel ht Not Have Been Administered Count Last Ordered Date First Ordered Date lidocaine (XYLOCAINE) 5 % ointment 1 2024 Nursing Count Last Ordered Date First Orde red Date AMB [facility] PRIMARY DRESSING 1 02/26/2025 documented in this encounter Care Teams Nephrology Nurse Relationship Specialty Start Date End Date William Hunter MD [address] [place] [address] [place] [phone] PCP - General Internal Medicine-Adolescent Medicine 05/28/23 González Gotti MD [address] [place] [address] [place] [address] Consulting Physician Internal Medicine - Clinical Cardiac Electrophysiology 04/05/17 Cristi Cleaning MD [address] [place] [address] [place] [address] Physician Internal Medicine-Cardiovascular Disease 04/05/17 documented as of this encounter
--- OUTSIDE RECORDS SUMMARY | 2025-02-27 06:00 | XMS_ITS ---
Author Organization [facility] PE D RENEE Address [address] [place] [address] Care Team Providers Care Network Operations Project Manager Name Role Phone William Hunter Primary Care Provider Sarah Wing Unavailable [phone] Allergies Allergen (clinical drug ingredient) Drug/Non Drug Allergy documented on EMR Reaction Allergy Type Onset Date Status Substance with 4-wwfrijj-1-methylg lutaryl-coenzyme A reductase inhibitor mechanism of action (substance) Statins couldnt walk Drug Allergy Active codeine Codeine Unknown Drug Allergy Active hydrocodone HYDROcodone itchy and nausea Drug Allergy Active Reason For Referral Reason cologuard Diagnosis 1 Encounter for screen ing for malignant neoplasm of colon (Z12.11) Referral Organization [facility] DRE HARTMAN Referring Provider First Name Sarah Referring Provider Last Name Mecca Referring Provider Speciality Family Pra ctice Referred Organization [facility] Referred Address [facility], Referred Provider Specialty Diagnostic L aboratory General Notes Vijaya Gomez 2024 04:44:43 PM >sent to Cologuard Referral Priority Routine Reason mammogram [facility] Diagnosis 1 Visit for screening mammogram (Z12.31) Referral Organization [facility] DRE HARTMAN Referring Provider First Name Sarah Referring Provider Last Name Mecca Referring Provider Speciality Family Pra ctice Referred Organization [facility] Referred Address [address], [place],[address] Referred Provider Specialty Diagnostic R adiology General Notes Vijaya Gomez 2024 03:49:33 PM >sent to [facility] to schedule appt Referral Priority Routine REASON FOR VISIT Medication follow up Medications Medication SIG (Take, Route, Frequency, Duration) Notes Start Date End Date Status Magnesium Gluconate 250 MG 1 tab(s) orally once a day Active Repatha 140 MG/ML subcutaneously every 2 weeks Active Isosorbide Mononitrate ER 120 MG 1 tab(s) orally once a day (in the morning) Active Plavix 75 MG 1 tab(s) orally once a day Active Pantoprazole Sodium 40 MG 1 tab(s) orally once a day Active Jardiance 10 MG 1 tab(s) orally once a day (in the morning) Active Aspirin 81 MG 1 TAB(S) ORALLY ONCE A DAY *Please review and pick correct strength-formula tion from MessageBunker options. If intended option is not shown, discontinue and re-order from Quick Search* Active Nitroglycerin 0.4 MG 1 tab(s) sublingually every 5 minutes prn Active rOPINIRole HCl 0.25 MG 1 tab(s) orally a t bedtime Active Metoprolol Succinate ER 100 MG TAKE 1 AND 1/2 TABLET BY MOUTH TWICE DAILY for 30 days Active hydroCHLOROthiazide 25 MG 1 tab(s) orally every other day Active Gabapentin 300 MG 1 cap(s) orally 2 times a day for 30 day(s) 08/29/2024 Active hydrOXYzine HCl 25 MG 1 tab(s) orally 2 times a day for 30 days 06/24/2023 Active Eliquis 5 mg TAKE ONE TABLET BY MOUTH TWICE DAILY for 30 Active amLODIPine Besylate 5 MG 1 tab(s) orally once a day for 30 day(s) Active RANEXA 1000 MG 1 TAB(S) ORALLY 2 TIMES A DAY *Please review for potential replacement for e-prescription and drug interaction check* Active Social History Tobacco Use: Social History Observation Description Date Details (start date - stop date) Former Smoker NA - NA Smoking: Question Answer Notes Are you a: former smoker How long has it been since you last smoked? 6-12 months Vital Signs Temperature 97.0 degrees Fahrenheit 02/28/20 25 Blood pressure systolic 136 mm Hg 02/28/20 25 Blood pressure diastolic 88 mm Hg 025 Heart Rate 96 /min 02/27/2025 Height 64 in 02/27/2025 Weight 154 lbs 02/27/2025 BMI 26.43 kg/m2 02/27/2025 Encounters Encounter Location Date Provider Diagnosis [facility] RENEE [address] [place] [address] 02/27/2025 Sarah Wing Routine medical exam Z00.00 ; Coronary artery disease involving [place] coronary artery of [place] heart without angina pectoris I25.10 ; Gastroesophageal reflux disease without esophagitis K21.9 ; Chronic systolic heart failure I50.22 ; Peripheral arterial disease I73.9 ; Paroxysmal atrial fibrillation I48.0 ; Hyperlipemia E78.5 ; emt intermediate (current) use of anticoagulants Z79.01 ; Essential hypertension I10 ; Encounter for screening for malignant neoplasm of colon Z12.11 ; Visit for screening mammogram Z12.31 and BMI 26.0-26.9,adult Z68.26 Assessments Encounter Date Diagnosis (ICD Code) Assessment Notes Treatment Notes Treatment Clinical Notes Section Notes 02/27/2025 Routine medical exam (ICD-10 - Z00.00) Needs mammogram and cologuard, will arrange again 02/27/2025 Coronary artery disease involving [place] coronary artery of [place] heart without angina pectoris (ICD-10 - I25.10) No acute angina. Keep FU with cardiology 02/27/2025 Gastroesophageal reflux disease without esophagitis (ICD-10 - K21.9) well controlled on PPI 02/27/2025 Chronic systolic heart failure (ICD-10 - I50.22) Euvolemic today on exam 02/27/2025 Peripheral arterial disease (ICD-10 - I73.9) Risk factor modification, refrain from smoking maximize LDL, blood pressure control. Keep FU with vascular surgery and podiatry 02/27/2025 Paroxysmal atrial fibrillation (ICD-10 - I48.0) Rate well controlled. Eliquis for anticoagulatio n. No signs of excessive bleeding. 02/27/2025 Hyperlipemia (ICD-10 - E78.5) On repatha, tolerates well. WIll check fasting lipid panel 02/27/2025 FDC (current) use of anticoagulants (ICD-10 - Z79.01) 02/27/2025 Essential hypertension (ICD-10 - I10) Blood pressure at goal. 02/27/2025 Encounter for screening for malignant neoplasm of colon (ICD-10 - Z12.11) 02/27/2025 Visit for screening mammogram (ICD-10 - Z12.31) 02/27/2025 BMI 26.0-26.9,adult (ICD-10 - Z68.26) BMI acceptable Plan Of Treatment Treatment Notes Assessment Notes Routine medical exam Needs mammogram and cologuard, will arrange again Coronary artery disease invo lving [place] coronary artery of [place] heart without angina pectoris No acute angina. Keep FU with cardiology Gastroesophageal reflux dise ase without esophagitis well controlled on PPI Chronic systolic heart failure Euvolemic today on exam Peripheral arterial disease Risk factor modification, refrain from smoking maximize LDL, blood pressure control. Keep FU with vascular surgery and podiatry Paroxysmal atrial fibrillation Rate well controlled. Eliquis for anticoagulation. No signs of excessive bleeding. Hyperlipemia On repatha, tolerate s well. WIll check fasting lipid panel Essential hypertension Blood pressure at goal. BMI 26.0-26.9,adult BMI acceptable Pending Test Test Name Order Date Mammogram : Bilateral 02/27/2025 LIPID PANEL, STANDARD (7600) 02/27/2025 COMPREHENSIVE METABOLIC PANEL (64566) CBC (INCLUDES DIFF/PLT) (6399) 5 Referrals Referral Date Details 02/27/2025 02/27/2025, marquise hendricks, [place], 02/27/2025 02/27/2025, mammogra archie [facility], [address] [facility], [place], [address], Next Appt Details Follow Up: 6 Months,prn, [place] son: Progress Notes * Oz GLEZIdaliaB:1965 (59 yo F)Acc No.[id number]:02/27/2025 Progress Notes Patient: Ashley NICOLE Provider: Archie Wing APRN :1965 A ge:59 Y S ex:Female Date:02/27/2025 Address:[address] [place] [address] [facility] Pcp:William Hunter Subjective: * Chief Complaints: * 1 . Medication follow up. * HPI: g en: 59 year old female presents for annual wellness exam and routine FU for chronic conditions PAD- Severe disease, multiple angiograms and with trans MT amputation of left foot. Follows with Dr. Penn for vascular surgery and podiatry. On gabapentin for neuropathy. DVT left leg in December, then developed heal wound. Healing nicely, no signs of infection. CAD- denies CP, SOA with exertion, at baseline, follows with Dr. Cleaning every 6 months A. fib- Eliquis, no signs of excessive bleeding,, occasional palpitations RLS- on requip with good control on symptoms. HTN- at goal today, h/o JACOB with renal stents placed a couple years ago HLD- on repatha, tolerates well. Due for fasting labs GERD- well controlled on PPI PVM- mammogram 04/17, has been ordered since but not completed, flu shot and COVID-19 vaccines UTD. No previous c-scope, agrees to [facility], has been sent several times in the past and not completed. * ROS: R ESPIRATORY: no C hest congestion. n o C ough. C ARDIOLOGY: See HPI Y es. C ONSTITUTIONAL: no L oss of appetite. n o F ever. G ASTROENTEROLOGY: Reviewed, No Symptoms Reported: Y es. H EMATOLOGY/LYMPH: no S wollen glands. n o F atigue. n o L oss of appetite. n o E asy bruising. M USCULOSKELETAL: no J oint stiffness. n o J oint pain. ? N EUROLOGY: no H eadache. T ingling numbness y es, f eet.?no D izziness. P SYCHOLOGY: no D epression. n o S leep disturbances. n o?Anxiety. U ROLOGY: Dysuria n o. n o D ifficulty urinating. ? * Medical History: H ypertension, Emphysema, HLD, CAD, COPD, STEMI with 3 NORI to RCA, Pacemaker, 03/13 Heart Cath- EF 30%, Echo EF 25%. * Surgical History: c ardiac stents x 3 06/2016, right femur fx repair , colonoscopy , Barium enema 09/2016, Pacemaker 11/05/2016, Heart Cath- Stent placed in right leg 03/23/2017, Pacemaker/Defibrillator 04/12/2017, Kidney stent 08/2021, Angiogram-lt leg 02/2022, Left foot surgery 05/2022, Left 2nd Digit amputation 02/2023, Angiogram 01/28/23, Transmetatarsal Amputation of Left toe 06/05/23. * Hospitalization/Major Diagno stic Procedure: M I 06/2016, chest pain 2006, [facility]- defibrillator shock, foot infection 12/2021, [place] [facility] 05/2023, [facility]- blood cot 12/2024. * Family History: F ather: alive, melanoma, prostate, diagnosed with Diabetes, Hypertension, Cancer. M other: alive, diagnosed with Cancer, Hypertension, Heart Disease. P aternal Grand Father: . Paternal Grand Mother: . M aternal Grand Father: . M aternal Grand Mother: . S iblings: alive, 1 sister ; mva. C hildren: alive. 1 brother(s) , 1 sister(s) - healthy. 1 daughter(s) - healthy. . * Social History: S moking A re you a: f ormer smoker, H ow long has it been since you last smoked??6-12 months. R ecreational drug use: no. Exercise: yes, walks daily. Home smoke detector use: yes. Caffeine: yes, several glasses of tea daily. Living Will: No. Alcohol: socially. Sexually active: no. Travel outside [place]: no. Occupation: unemployed. * Medications: T aking Aspirin 81 MG [...] 1 tab(s) orally 2 times a day , Taking Gabapentin 300 MG Capsule 1 cap(s) orally 2 times a day , Taking amLODIPine Besylate 5 MG Tablet 1 tab(s) orally once a day , Taking Eliquis 5 mg Tablet TAKE ONE TABLET BY MOUTH TWICE DAILY , Taking Metoprolol Succinate ER 100 MG Tablet Extended Release 24 Hour TAKE 1 AND 1/2 TABLET BY MOUTH TWICE DAILY , Medication List reviewed and reconciled with the patient * Allergies: C odeine, HYDROcodone: itchy and nausea, Statins: couldnt walk. Objective: * Vitals: N urse: be, Pain: 2, Temp: 97.0, RR: 18, HR: 96, BP: 136/88, Ht: 64, Wt: 154, BMI:26.43. * Examination: G eneral Examination: General P leasant and Cooperative, NAD on RA,. Chest: n ormal shape and expansion. Heart: R RR, No m/r/g/h, Nl S1S2, No JVD, 2(+) symmetric pulses, No edema,. HEENT: u nremarkable . Lungs: L CTAB, No wheezes, crackles or rhonchi, Good air movement,. Abdomen: S oft, NTND, BSNA, No organomegaly or peritoneal signs.. Neurologic Exam: n o focal signs,, normal sensation, strength, tone and reflexes,, Alert and oriented x 3. Skin: w ithout acute rashes. Extremities: l eft foot- Mid MT amp, closed heal wound, no redness, tenderness or drainage right foot- small callus right 5th toe medial aspect. neck s upple,, no thyromegaly,, no lymphadenopathy, No Carotid Bruit,. Psych N ormal Mood/Affect. Assessment: * Assessment: 1. R outine medical exam - Z00.00 (Primary) 2 . C oronary artery disease involving [place] coronary artery of [place] heart without angina pectoris - I25.10 3 .?Gastroesophageal reflux disease without esophagitis - K21.9 4 . C hronic systolic heart failure - I50.22 5 . P eripheral arterial disease - I73.9 ? 6 . P aroxysmal atrial fibrillation - I48.0 7 . H yperlipemia - E78.5? 8. L oscar term (current) use of anticoagulants - Z79.01 9 . Essential hypertension - I10 1 0. E ncounter for screening for malignant neoplasm of colon - Z12.11 1 1. V isit for screening mammogram - Z12.31 ?12. B DE 26.0-26.9,adult - Z68.26 Plan: * Treatment: 2. C oronary artery disease involving [place] coronary artery of [place] heart without angina pectoris Notes: No acute angina. Keep FU with cardiology 3. G astroesophageal reflux disease without esophagitis Notes: well controlled on PPI 4. C hronic systolic heart failure Notes: Euvolemic today on exam 5. P eripheral arterial disease Notes: Risk factor modification, refrain from smoking maximize LDL, blood pressure control. Keep FU with vascular surgery and podiatry 6. P aroxysmal atrial fibrillation L AB: CBC (INCLUDES DIFF/PLT) (6399) Notes: Rate well controlled. Eliquis for anticoagulation. No signs of excessive bleeding. ? 7. H yperlipemia L AB: LIPID PANEL, STANDARD (7600) L AB: COMPREHENSIVE METABOLIC PANEL (78135) Notes: On repatha, tolerates well. WIll check fasting lipid panel 8. L oscar term (current) use of anticoagulants L AB: CBC (INCLUDES DIFF/PLT) (6399) 9. E ssential hypertension Notes: Blood pressure at goal. 10. E ncounter for screening for malignant neoplasm of colon Referral To: Reason:cologuard 11. V isit for screening mammogram L AB: LIPID PANEL, STANDARD (7600) L AB: COMPREHENSIVE METABOLIC PANEL (38638) L AB: CBC (INCLUDES DIFF/PLT) (6399) I maging: Mammogram : Bilateral ? Referral To: ?Reason:mammogram [facility] 12.?BMI 26.0-26.9,adult? Notes: BMI acceptable?? * Follow Up: 6 Months,prn * * Sign off status: Completed true * Provider: Archie Wing APRN Date: 0 02/27/2025 Generated for Popi bon/Joe/eTransmitting on: 0 03/14/2025 02:53 PM EDT History and Physical Notes * HPI (History of Present Illness) Category Sub-Category Detail Notes Category Not es gen 59 year old female presents for annual wellness exam and routine FU for chronic conditions PAD- Severe disease, multiple angiograms and with trans MT amputation of left foot. Follows with Dr. Penn for vascular surgery and podiatry. On gabapentin for neuropathy. DVT left leg in December, then developed heal wound. Healing nicely, no signs of infection. CAD- denies CP, SOA with exertion, at baseline, follows with Dr. Cleaning every 6 months A. fib- Eliquis, no signs of excessive bleeding,, occasional palpitations RLS- on requip with good control on symptoms. HTN- at goal today, h/o JACOB with renal stents placed a couple years ago HLD- on repatha, tolerates well. Due for fasting labs GERD- well controlled on PPI PVM- mammogram 04/17, has been ordered since but not completed, flu shot and COVID-19 vaccines UTD. No previous c-scope, agrees to cologuard, has been sent several times in the past and not completed Examination Category Sub-Category Detail Notes Category Not es General Examination HEENT: unremarkable Heart: RRR, No m/r/g/h, Nl S1S2, No JVD, 2(+) symmetric pulses, No edema, Lungs: LCTAB, No wheezes, c rackles or rhonchi, Good air movement, Abdomen: Soft, NTND, BSNA, No organomegaly or peritoneal signs. Extremities: left foot- Mid MT am p, closed heal wound, no redness, tenderness or drainage right foot- small callus right 5th toe medial aspect Skin: without acute rashes Neurologic Exam: no focal signs,, nor mal sensation, strength, tone and reflexes,, Alert and oriented x 3 Chest: normal shape and exp ansion neck supple,, no thyromeg griffin,, no lymphadenopathy, No Carotid Bruit, General Pleasant and Coopera tive, NAD on RA, Psych Normal Mood/Affect Consultation Request Notes Referral Date Referring Provider Referred Provider Not es 02/27/2025 Sarah Wing , cologuard 02/27/2025 Sarah Wing , mammogram [facility]
--- OUTSIDE RECORDS SUMMARY | 2025-03-12 13:53 | XMS_ITS | Encounter Summary ---
Author Organization [place] [address] Care Team Providers Care Swift Tender Name Role Phone González Gotti MD Unavailable [phone] Cristi Cleaning MD Unavailable [phone] William Hunter MD Primary Care Provider [phone] Reason for Referral * In Office Procedure (Routine) - Pending Review Specialty Diagnoses / Procedures Referred By Contac t Referred To Contact Diagnoses Stage III pressure ulcer of left heel (HCC) 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) PAD (peripheral artery disease) Procedures VT DEBRIDEMENT SUBCUTANEOUS TISSUE 1ST 20 SQ CM/< Kirt Dolan DPM [address] [place] [address] Phone: tel: fax: Referral ID Status Reason Start Date Expiration Date V isits Requested Visits Authorized [id number] Pending Review 03/12/2025 03/12/2026 1 1 * (Routine) - Pending Review Specialty Diagnoses / Procedures Referred By Contac t Referred To Contact Diagnoses Stage III pressure ulcer of left heel (HCC) Procedures [facility] Kirt Dolan DPM [address] [place] [phone] Phone: tel: fax: Referral ID Status Reason Start Date Expiration Date V isits Requested Visits Authorized [id number] Pending Review 03/12/2025 03/12/2026 1 1 Reason for Visit * Reason Comments Non-healing Wound * Consultation (Routine) - Authorization Not Needed Specialty Diagnoses / Procedures Referred By Biran t Referred To Contact Wound Care Diagnoses Wound Care Procedures VT DEBRIDEMENT SUBCUTANEOUS TISSUE 1ST 20 SQ CM/< VT DEBRIDEMENT MUSCLE &/FASCIA 1ST 20 SQ CM/< VT DEBRIDEMENT BONE 1ST 20 SQ CM/< VT DEBRIDEMENT SUBCUTANEOUS TISSUE EA ADDL 20 SQ CM VT DEBRIDEMENT MUSCLE &/FASCIA EA ADDL 20 SQ CM VT DEBRIDEMENT BONE EACH ADDITIONAL 20 SQ CM VT DEBRIDEMENT OPEN WOUND FIRST 20 SQ CM/< VT DEBRIDEMENT OPN WND EA ADDL 20 SQ CM/PRT THEREOF [facility] [place] [address] [place] [address] Phone: tel: fax: Referral ID Status Reason Start Date Expiration Date Visits Requested Visits Authorized [id number] Authorization Not Needed Specialty Services Required 5 01/08/2026 99 99 Encounter Details Date Type Department Care Team (Late st Contact Info) Description 03/12/2025 1:53 PM EDT - 03/12/2025 11:59 PM EDT Hospital Encounter [facility] [address] [place] [address] Kirt Dolan DPM [address] [place] [phone] Atherosclerosis of artery of extremity with ulceration [...] oz pur e alcohol) [facility] Utilities Answer Date Recorded In the past 12 months has e [employer], gas, oil, or water company threatened to shut off services in your home? No 12/28/2024 Overall Financial Resource Strain (CARDIA) Answe r Date Recorded How hard is it for you to pa y for the very basics like food, housing, medical care, and heating? Not hard at all 12/28/2024 PHQ-2 Answer Date Recorded PHQ-2 Total Score 0 12/28/2024 [facility] - Occupational Stress Questionnaire [...] things needed for daily living? No 05/29/2023 [facility] Transportation Answer D ate [...] days. fluticasone propionate (FLONASE) 50 mcg/actuation Nasl [place], Suspension 1 spay each nostril twice daily [...] EDT 06/11/2023 oxymetazoline (AFRIN) 0.05 % Nasl [place], Non-Aerosol 1 [place] by Nasal route as needed for Congestion [...] Bradycardia CAD (coronary artery disease) Cardiac pacemaker [facility] Dual PPM 11/05/2016 - Dr. Cleaning Chronic systolic heart failure ([facility]) COPD (chronic obstructive pulmonary disease) ([facility]) Depression with anxiety Emphysema, unspecified ([facility]) Essential hypertension Headache Heartburn History of cardiac cath 03/23/2017 Stent placed in Right leg 03/23/2017 HLD (hyperlipidemia) Hypertension GA (myocardial infarction) ([facility]) 06/2016 Pacemaker Post-operative nausea and vomiting Sinus node dysfunction ([facility]) [facility] Dual PPM 11/05/2016 - Dr. Cleaning [...] situ 12/07/2023 Insomnia 12/07/2023 Kidney stone 12/07/2023 qlikview developer current use of anticoagulant therapy 12/07/2023 Neuropathy 12/07/2023 Non-pressure chronic ulcer of skin of other sites with unspecified severity ([facility]) 12/07/2023 Palpitations 12/07/2023 Atrial fibrillation with rapid ventricular response ([facility]) 12/07/2023 Seasonal allergic rhinitis 12/07/2023 Sinusitis 12/07/2023 Stented coronary artery 12/07/2023 Typical angina 12/07/2023 Ventricular fibrillation ([facility]) 12/07/2023 Ventricular fibrillation seen on lunchroom monitor ([facility]) 12/07/2023 Ventricular [...] 05/19/2023 .; Surgeon: Jabari Hill DPM; Location: [facility] OR; Service: Orthopedics FEMUR FRACTURE SURGERY Right right femur fx repair FOOT SURGERY FOOT SURGERY Left 12/23/2022 Left foot heel and second and third toe debridement with application of skin graft substitute. ; Surgeon: Jabari Hill DPM; Location: [facility]; Service: Orthopedics FOOT SURGERY Left 02/10/2023 Surgeon: Jabari Hill DPM; Location: [facility]; Service: Orthopedics FOOT SURGERY Left 06/06/2023 left FOOT TRANSMETATARSAL amputation; Surgeon: Jabari Hill DPM; Location: [facility] OR; Service: Podiatry HAMMER TOE SURGERY Left 06/15/2022 Left foot Correction of hammer toe deformity with arthroplasty second and third toe. Left foot Application of skin graft substitute.; Surgeon: Jabari Hill DPM; Location: [facility]; Service: Podiatry HIP SURGERY [...] IR REVAS FEM POP ART UNILAT W HEALTH SPECIALIST 03/13/2022 IR REVAS FEM POP ART UNILAT W HEALTH SPECIALIST 03/13/2022 Kashif Wong MD EDG IR IR REVAS FEM POP ART UNILAT W HEALTH SPECIALIST 06/02/2023 IR REVAS FEM POP ART UNILAT W HEALTH SPECIALIST 06/02/2023 Vishnu Penn MD EDG IR IR REVAS FEM POP ART UNILAT W HEALTH SPECIALIST 12/28/2024 IR REVAS FEM POP ART UNILAT W HEALTH SPECIALIST 12/28/2024 Vishnu Penn MD EDG IR IR [...] 05/19/2023 .; Surgeon: Jabari Hill DPM; Location: [facility]; Service: Orthopedics SKIN GRAFT Left 06/15/2022 Surgeon: Jabari Hill DPM; Location: [facility]; Service: Podiatry SKIN GRAFT Left 12/23/2022 . ; Surgeon: Jabari Hill DPM; Location: [facility]; Service: Orthopedics SKIN GRAFT 02/10/2023 Surgeon: Jabari Hill DPM; Location: [facility]; Service: Orthopedics TOE AMPUTATION Left 02/10/2023 Left foot second toe amputation, Left foot excisional debridement with application of skin graft substitute; Surgeon: Jabari Hill DPM; Location: [facility]; Service: Orthopedics TOE AMPUTATION Left 05/19/2023 Left foot, amputation of third toe. Left foot, wound debridment application. Left foot, skin graft substitute. Left foot wound debridment closure.; Surgeon: Jabari Hill DPM; Location: [facility]; Service: Orthopedics Family History [...] days. fluticasone propionate (FLONASE) 50 mcg/actuation Nasl [place], Suspension 1 spay each nostril twice daily [...] Tablet 0 oxymetazoline (AFRIN) 0.05 % Nasl [place], Non-Aerosol 1 [place] by Nasal route as needed for Congestion [...] days. fluticasone propionate (FLONASE) 50 mcg/actuation Nasl [place], Suspension 1 spay each nostril twice daily [...] Tablet 0 oxymetazoline (AFRIN) 0.05 % Nasl [place], Non-Aerosol 1 [place] by Nasal route as needed for Congestion [...] days. fluticasone propionate (FLONASE) 50 mcg/actuation Nasl [place], Suspension 1 spay each nostril twice daily [...] Myalgia Ezetimibe Myalgia Rosuvastatin Myalgia Simvastatin Myalgia Uasvypz-Xnb-Vtv Reductase Inhibitors Other (See Comments) Joint pain [...] * Right: * RODOLFO: 0.63 (DPA, distal HEALTH SPECIALIST occluded) / TBI: 0, absent waveform. There is an occlusion of the distal posterior tibial artery. Dampened, biphasic flow of the proximal and mid posterior tibial artery. Mild to moderate plaque noted in the arteries of the right lower extremity. * Left: * RODOLFO: 1.29 (HEALTH SPECIALIST) / TBI: 0, metatarsal amputation. 20-49 % [...] artery of extremity with ulceration (HCC) - VT DEBRIDEMENT SUBCUTANEOUS TISSUE 1ST 20 SQ CM/< Stage III pressure ulcer of left heel (HCC) - [facility] - VT DEBRIDEMENT SUBCUTANEOUS TISSUE 1ST 20 SQ CM/< PAD (peripheral artery disease) - VT DEBRIDEMENT SUBCUTANEOUS TISSUE 1ST 20 SQ CM/< [...] TMA site- paint with betadine daily. 01/08 [facility] [employer] has been contacted to obtain [...] free to reach out to our community sports coordinator, Hanna Riggs at [phone] for any discussion. WHO TO CALL FOR PROBLEMS: Please call the OP wound care center with any problems or issues you may have after your visit or though the week. Each patient is assigned a director of casework who can assist with issues you may be having. Individual office numbers are listed below. Press 1 for immediate or schedule needs, press 2 for the nursing line. The nurse line is for non-emergent needs and will be answered within 24 hours duringbus days. If you have a more immediate concern, press option #1. Office numbers: [phone] [facility] [phone] [facility] [phone] Our offices do not have an on-call provider. If you have emergent needs after hours please contact your primary care provider. You may also utilize the [facility] Nurse NOW Helpline: [phone] for after-hours needs to get in contact [...] EDT Office Visit [facility] [address] [place] [phone] Vishnu Penn MD [address] [place] [address] 03/26/2025 1:15 PM EDT Appointment [facility] [address] [place] [address] Cristi Pelletier, DPJeremi [address] [phone] 05/10/2025 10:20 AM EDT Office Visit [facility] [address] [place] [address] [address] [place] [address] Nette Jalloh APRN [address] [place] [address] [phone] 11/12/2025 1:30 PM EST Appointment [facility] [address] [place] [address] [place] [phone] Nette Jalloh APRN [address] [place] [address] [address] 11/12/2025 2:40 PM EST Office Visit [facility] [address] [place] [address] May, Nette Rand METAL MACHINE OPERATOR [address] [place] [address] Scheduled Orders Name Type Priority Associated Diagnoses Orde r Schedule VT DEBRIDEMENT SUBCUTANEOUS TISSUE 1ST 20 SQ CM/< VT Charge Routine Stage III pressure ulcer of [...] 03/12/2025 documented in this encounter Care Teams Swift Tender Relationship Specialty Start Date End Date William Hunter MD [address] [place] [phone] PCP - General Internal Medicine-Adolescent Medicine 05/28/23 González Gotti MD [address] [place] [address] [place] [address] Consulting Physician Internal Medicine - Clinical Cardiac Electrophysiology 04/05/17 Cristi Cleaning MD [address] [place] [address] [place] [address] Physician Internal Medicine-Cardiovascular Disease 04/05/17 documented as of this encounter
--- NOTE | 2025-03-14 14:50 | MM_ITS ---
PROCEDURE INFORMATION: Exam: MG Bilateral Screening 3D Mammography Exam date and time: 03/14/2025 3:04 PM Age: 59 years old Clinical indication: Screening examination TECHNIQUE: Imaging protocol: Bilateral Screening tomosynthesis and 2D mammography including computer-aided detection (CAD) when performed. COMPARISON: 1. MG MM DIG SCREENING MAMM BI W/CAD 04/16/2022 12:59 PM 2. MG DMSB DIG MAMM-SCREEN RUPERTO 08/18/2016 9:16 AM FINDINGS: MAMMOGRAPHY: Breast composition: The breasts are heterogeneously dense, which may obscure small masses. Mass: There is a 0.5 cm ovoid low-density mass in the upper inner quadrant of the left breast, anterior depth. Architectural distortion: None. Calcifications: No suspicious calcifications. Asymmetric density: None. Skin thickening: None. Axillary adenopathy: None. Other findings: There is a power pack that overlies the left chest. IMPRESSION: Patient to be recalled for left breast ultrasound for further evaluation of a left breast mass. ASSESSMENT: BI-RADS Category 0: Incomplete- Need Additional Imaging Evaluation.
--- OUTSIDE RECORDS SUMMARY | 2025-03-14 14:53 | XMS_ITS | Clinical Summary ---
Author Organization [facility] Arrhythmia [facility] Address 1 [facility] [address] [place] [phone] Phone Care Team Providers Care Computer Systems Architect Name Role Phone González Gotti MD Unavailable [phone] Cristi Cleaning MD Unavailable [phone] William Hunter MD Primary Care Provider [phone] Allergies Active Allergy Reactions Criticality Noted Date Comments Atorvastatin Myalgia High 07/01/2023 Codeine Itching Low nausea Ezetimibe Myalgia High 07/01/2023 Hydrocodone Itching Low nausea Promethazine Other (See Comments) Low 06/12/2022 Made legs restless And also very sleepy Rosuvastatin Myalgia High 07/01/2023 Simvastatin Myalgia High 07/01/2023 Tgvzsgp-Fem-Euo Reductase Inhibitors Other (See Comments) 01/02/2025 Joint pain Medications clopidogrel (PLAVIX) 75 mg Oral Tablet Take 75 mg by mouth daily. 7 Active nitroGLYCERIN (NITROSTAT) 0.4 mg SL Tablet, Sublingual Place 0.4 mg under the tongue every 5 minutes as needed for Chest pain. Active albuterol (PROVENTIL HFA;VENTOLIN HFA) 90 mcg/actuation Inhl HFA Aerosol Inhaler Inhale 2 Puffs into the lungs every 6 hours as needed for Wheezing. Active gabapentin (NEURONTIN) 300 mg Oral Capsule Take 300 mg by mouth 2 times daily. Takes every other day. Active metoprolol succinate ER (TOPROL-XL) 100 mg Oral Tablet Sustained Release 24 hr Take 150 mg by mouth 2 times daily. Active empagliflozin (JARDIANCE) 10 mg Oral Tablet Take 10 mg by mouth daily. Active pantoprazole (PROTONIX) 40 mg Oral Tablet, Delayed Release (E.C.) Take 40 mg by mouth daily. Active evolocumab (REPATHA SURECLICK) 140 mg/mL SubQ Pen Injector Subcutaneous (Inject under the skin) 140 mg every 14 days. Active amLODIPine (NORVASC) 5 mg Oral Tablet Take 5 mg by mouth daily. 2 Active aspirin 81 mg Oral Tablet, Chewable Take 1 Tablet by mouth daily. 30 Tablet 11 3 Active hydroCHLOROthia zide (MICROZIDE) 12.5 mg Oral Capsule Take 25 mg by mouth daily. 3 Active rOPINIRole (REQUIP) 1 mg Oral Tablet Take 1 mg by mouth nightly. 3 Active isosorbide mononitrate (IMDUR) 120 mg Oral Tablet Sustained Release 24 hr TAKE ONE TABLET BY MOUTH EVERY DAY FOR CHEST PAINS 3 Active Ranolazine 1,000 mg Oral Tablet Sustained Release 12 hr Take 1 Tablet by mouth 2 times daily. 3 Active cholecalciferol , vitamin D3, 25 mcg (1,000 unit) Oral Tablet Take 1 Tablet by mouth daily. Active VITAMIN B COMPLEX ORAL Take 1 Tablet by mouth daily. Active multivitamin with folic acid (THERAGRAN) 400 mcg Oral Tablet Take 1 Tablet by mouth daily. Active oxyCODONE-aceta minophen (PERCOCET) 5-325 mg Oral Tablet Take 1-2 Tablets by mouth every 4 hours as needed for Acute Pain (R52). 30 Tablet 06/11/2023 12:19 PM EDT 3 Active Additional Information Patient not taking.Reason: Therapy Completed (never picked up), Informant: Self/Patient, Reported on 02/07/2025 fluticasone propionate (FLONASE) 50 mcg/actuation Nasl Henderson, Suspension 1 spay each nostril twice daily 1 Each 3 3 Active oxymetazoline (AFRIN) 0.05 % Nasl Henderson, Non-Aerosol 1 Henderson by Nasal route as needed for Congestion (30 min. prior to HBO2-PRN, difficulty clearing ears.). 3 Active Additional Information Patient not taking.Reason: Therapy Completed, Informant: Self/Patient, Reported on 02/07/2025 hydrOXYzine (ATARAX) 25 mg Oral Tablet 1 tab(s) orally 2 times a day for 30 days 3 Active Magnesium 200 mg Oral Tablet 200 mg. 8 Active ENTRESTO 24-26 mg Oral Tablet Take 1 Tablet by mouth 2 times daily. 5 Active amoxicillin (AMOXIL) 500 mg Oral Capsule TAKE ONE CAPSULE BY MOUTH THREE TIMES DAILY UNTIL GONE -- FINISH ALL MEDICINE -- 5 Active apixaban (ELIQUIS) 5 mg Oral Tablet Take 1 Tablet by mouth 2 times daily. 60 Tablet 6 5 Active Active Problems Patient Care Coordination No te Formatting of this note migh t be different from the original. 03/05/22 [facility] #[id number] (as expected) Kashif Wong MD Problem Noted Date Diagnosed Date Claudication of right lower extremity 02/26/2025 Pressure ulcer of left heel, stage 4 01/09/2025 Critical limb ischemia of both lower extremities 12/28/2024 DVT, lower extremity, distal, acute, left 2024 Former smoker-quit 202112/08/2024 Abnormal ankle brachial index (RODOLFO) 12/07/2023 Acute anxiety 12/07/2023 Adrenal mass, right 12/07/2023 AICD discharge 12/07/2023 Amputation of one or more toes 12/07/2023 Arterial leg ulcer 12/07/2023 RLS (restless legs syndrome) 12/07/2023 Betaxolol allergy 12/07/2023 Gastroesophageal reflux disease without esophagi tis 12/07/2023 History of angina, class II 12/07/[address] elevation myocardial infarction (S GRACE) 12/07/2023 Hypokalemia 12/07/2023 Implantable cardioverter-defibrillator (ICD) in situ 12/07/2023 Insomnia 12/07/2023 Kidney stone 12/07/2023 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 use of anticoagulant therapy 0 12/07/2023 Neuropathy 12/07/2023 Non-pressure chronic ulcer o f skin of other sites with unspecified severity 12/07/2023 Palpitations 12/07/2023 Atrial fibrillation with rapid ventricular respo nse 12/07/2023 Seasonal allergic rhinitis 12/07/2023 Sinusitis 12/07/2023 Stented coronary artery 12/07/2023 Typical angina 12/07/2023 Ventricular fibrillation 12/07/2023 Ventricular fibrillation seen on cardiac nurse 12/07/2023 Ventricular tachyarrhythmia 12/07/2023 Failed flap 06/28/2023 Skin flap necrosis 06/28/2023 Atherosclerosis of artery of extremity with ulce ration 06/02/2023 PAD (peripheral artery disease) 06/01/2023 S/P foot surgery 06/01/2023 Cellulitis of left lower extremity 05/28/2023 Open wound of left foot 04/26/2023 Overview (04/26/2023): Added automatically from request for surgery [id number] Hammertoe of left foot 06/08/2022 Overview (06/08/2022): Added automatically from request for surgery [id number] Pain in left foot 06/08/2022 Overview (06/08/2022): Added automatically from request for surgery [id number] Gangrene of left foot 06/08/2022 Overview (06/08/2022): Added automatically from request for surgery [id number] Vaping nicotine dependence, non-tobacco product 03/05/2022 COPD (chronic obstructive pulmonary disease) HLD (hyperlipidemia) Hypertension Emphysema, unspecified CAD (coronary artery disease) Cardiac pacemaker Overview (04/05/2017): SJM Dual PPM 11/05/2016 History of cardiac cath Overview (04/05/2017): Stent placed in Right leg 03/23/2017 Depression with anxiety Essential hypertension Chronic systolic heart failure Sinus node dysfunction Overview (04/05/2017): PJM Dual PPM 11/05/2016 - Dr. Cleaning Bradycardia Resolved Problems Problem Noted Date Diagnosed Date Resolved Date Pressure ulcer of left heel, stage 3 06/28/2023 01/28/2024 Chronic ulcer of left heel w ith necrosis of muscle 02/08/2023 06/01/2023 Overview (02/08/2023): Added automatically from request for surgery [id number] Osteomyelitis of second toe of left foot 02/05/2023 06/01/2023 Overview (02/05/2023): Added automatically from request for surgery [id number] Atherosclerosis of habematolel ar basia of left lower extremity with ulceration 09/07/2022 06/01/20 Atherosclerosis of habematolel ar basia of left lower extremity with gangrene 03/05/2022 06/01/2023 NH (myocardial infarction) 06/27/2016 0 06/01/2023 STEMI (ST elevation myocardial infarction) 06/01/2023 Overview (04/05/2017): STEMI with 3 NORI to RCA Foot ulceration, left, with necrosis of muscle 04/07/2024 Chronic toe ulcer, left, wit h necrosis of bone 06/01/2023 Encounters Date Type Department Care Team Description 03/12/2025 1:53 PM EDT - 03/12/2025 11:59 PM EDT Hospital Encounter [facility] [place] [address] [place] [address] Kirt Dolan DPM 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) (Primary Dx); Stage III pressure ulcer of left heel (HCC); PAD (peripheral artery disease) Discharge Disposition: Home or Self Care 02/26/2025 3:15 PM EDT - 02/26/2025 11:59 PM EDT Hospital Encounter [facility] [place] [address] [place] [address] Kirt Dolan DPM Ischemic ulcer of left foot with fat layer exposed (HCC) (Primary Dx); 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); Stage III pressure ulcer of left heel (HCC); PAD (peripheral artery disease); Claudication of right lower extremity Discharge Disposition: Home or Self Care 02/20/2025 12:55 PM EDT - 02/20/2025 11:59 PM EDT Hospital Encounter [facility] [address] [facility] [place] [address] Nette Jalloh APRN PAD (peripheral artery disease); Peripheral vascular angioplasty status with implants and grafts Discharge Disposition: Home or Self Care 02/12/2025 2:25 PM EDT - 02/12/2025 11:59 PM EDT Hospital Encounter [facility] [place] [address] [place] [address] Cristi Pelletier, DPJeremi 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) (Primary Dx); Stage III pressure ulcer of left heel (HCC) Discharge Disposition: Home or Self Care 02/07/2025 9:40 AM EDT Office Visit [facility] [address] [place] [phone] Nette Jalloh APRN PAD (peripheral artery disease) (Primary Dx); Primary hypertension; Chronic obstructive pulmonary disease, unspecified COPD type (HCC); Peripheral vascular angioplasty status with implants and grafts; S/P insertion of iliac artery stent 02/01/2025 2:58 PM EDT - 02/01/2025 11:59 PM EDT Hospital Encounter [facility] W[facility] Care [place] [address] [place] [address] Cristi Pelletier DPM Stage III pressure ulcer of left heel (HCC) (Primary Dx) Discharge Disposition: Home or Self Care 01/25/2025 2:30 PM EDT - 01/25/2025 11:59 PM EDT Hospital Encounter [facility] W[facility] [place] [address] [place] [address] Cristi Pelletier DPM Pressure ulcer of left heel, stage 4 (HCC) (Primary Dx); Foot ulceration, left, with necrosis of muscle (HCC) Discharge Disposition: Home or Self Care 01/08/2025 1:51 PM EDT - 01/08/2025 11:59 PM EDT Hospital Encounter [facility] [place] [address] [place] [address] Yazanclint Cristi Zhao, DPM Foot ulceration, left, with necrosis of muscle (HCC) (Primary Dx); Pressure ulcer of left heel, stage 4 (HCC) Discharge Disposition: Home or Self Care 01/02/2025 4:15 PM EDT Office Visit [facility] Podiatry [address] [place] [phone] Cristi Pelletier, DPM Ulcer of heel, left, with necrosis of muscle (HCC) (Primary Dx); PVD (peripheral vascular disease); History of transmetatarsal amputation of left foot (HCC) 01/02/2025 Travel 12/27/2024 11:34 AM EDT - 01/01/2025 4:39 PM EDT [facility] [address] [place], [place] [id number] Vishnu Penn MD PAD (peripheral artery disease); Ulcer of left foot with fat layer exposed (HCC) Discharge Disposition: Home or Self Care 12/27/2024 Travel 12/26/2024 Orders Only [facility] Vascular Surg Edg [address] [place] [address] [place] [phone] Isabella Lucas RMA PAD (peripheral artery disease) (Primary Dx) 12/24/2024 Travel 12/20/2024 Telephone [facility] Vascular Surg [facility] [address] [place] [address] [place] [phone] Dotty Ashby ABR-OE Procedure (Angiogram 12/27/24) 12/20/2024 Orders Only [facility] Vascular Surg [facility] [address] [place] [address] [place] [phone] Vishnu Penn MD PAD (peripheral artery disease) (Primary Dx) 12/15/2024 3:20 PM EDT Office Visit [facility] Vascular Surg Edg [address] [place] [address] [place] [phone] Nette Jalloh APRN PAD (peripheral artery disease) (HCC) (Primary Dx); Former smoker-quit 2021; Primary hypertension; Chronic obstructive pulmonary disease, unspecified COPD type ([facility]); Peripheral vascular angioplasty status with implants and grafts; S/P insertion of iliac artery stent; 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); Ulcer of left foot with fat layer exposed (HCC); Skin ulcer of left heel with fat layer exposed (HCC) 12/15/2024 3:16 PM EDT - 12/15/2024 11:59 PM EDT Hospital Encounter [facility] [place] [address] Vishnu Penn MD Ulcer of left foot with fat layer exposed (HCC) Discharge Disposition: Home or Self Care 12/15/2024 12:26 PM EDT - 12/15/2024 3:15 PM EDT Hospital Encounter [facility] VASCULAR [address] [place] [address] [place] [phone] Vishnu Penn MD PAD (peripheral artery disease) Discharge Disposition: Home or Self Care 12/15/2024 12:26 PM EDT - 12/15/2024 3:15 PM EDT Hospital Encounter [facility] [address] [place] [address] [place] [phone] Vishnu Penn MD Pain of right lower extremity Discharge Disposition: Home or Self Care 12/14/2024 Travel from Last 3 Months Surgical History Surgery Date Site/Laterality Comments CARDIAC PACEMAKER PLACEMENT 11/05/2016 [facility] Dual PPM CORONARY ANGIOPLASTY WITH STENT PLACEMENT 06/27/2016 - 07/27/2016 x3 FEMUR FRACTURE SURGERY Right right femur fx repair CARDIAC CATHETERIZATION 03/23/2017 Right stent placed in right leg IR ANGIOGRAM FEMORAL ARTERIO SHIFT 03/13/2022 IR ANGIOGRAM FEMORAL ARTERIO SHIFT 03/13/2022 Kashif Wong MD [facility] IR ULTRASOUND GUIDED VASCULAR ACCESS 03/13/2022 IR ULTRASOUND GUIDED VASCULAR ACCESS 03/13/2022 Kashif Wong MD [facility] IR ABDOMINAL AORTOGRAM SERIALOGRAM 03/13/2022 IR ABDOMINAL AORTOGRAM SERIALOGRAM 03/13/2022 Kashif Wong MD [facility] IR REVAS FEM POP ART UNILAT W HORSE STUD WORKER 03/13/2022 IR REVAS FEM POP ART UNILAT W HORSE STUD WORKER 03/13/2022 Kashif Wong MD [facility] IR COLONOSCOPY HAMMER TOE SURGERY 06/15/2022 Foot/Ankle/Left Left foot Correction of hammer toe deformity with arthroplasty second and third toe. Left foot Application of skin graft substitute.; Surgeon: Jabari Hill DPM; Location: [facility] MAIN OR; Service: Podiatry Medical devices from this surgery are in the Medical Devices section. SKIN GRAFT 06/15/2022 Left Surgeon: Jabari Hill DPM; Location: [facility] MAIN OR; Service: Podiatry Medical devices from this surgery are in the Medical Devices section. IR ANGIOGRAM FEMORAL ARTERIO SHIFT 11/04/2022 IR [...] ACCESS 12/02/2022 Vishnu Penn MD [facility] IR HIP SURGERY FOOT SURGERY FOOT SURGERY 12/23/2022 Foot/Ankle/Left Left foot heel and second and third toe debridement with application of skin graft substitute. ; Surgeon: Jabari Hill DPM; Location: [facility] OR; Service: Orthopedics Medical devices from this surgery are in the Medical Devices section. SKIN GRAFT 12/23/2022 Left . ; Surgeon: Jabari Hill DPM; Location: [facility] OR; Service: Orthopedics Medical devices from this surgery are in the Medical Devices section. TOE AMPUTATION 02/10/2023 Foot/Ankle/Left Foot/Ankle/Left Left foot second toe amputation, Left foot excisional debridement with application of skin graft substitute; Surgeon: Jabari Hill DPM; Location: [facility] OR; Service: Orthopedics Medical devices from this surgery are in the Medical Devices section. FOOT SURGERY 02/10/2023 Foot/Ankle/Left Surgeon: Jabari Hill DPM; Location: [facility] OR; Service: Orthopedics Medical devices from this surgery are in the Medical Devices section. SKIN GRAFT 02/10/2023 Surgeon: Jabari Hill DPM; Location: [facility] OR; Service: Orthopedics Medical devices from this surgery are in the Medical Devices section. TOE AMPUTATION 05/19/2023 Foot/Ankle/Left Left Left Left foot, amputation of third toe. Left foot, wound debridment application. Left foot, skin graft substitute. Left foot wound debridment closure.; Surgeon: Jabari Hill DPM; Location: [facility] OR; Service: Orthopedics Medical devices from this surgery are in the Medical Devices section. DEBRIDEMENT 05/19/2023 Left .; Surgeon: Jabari Hill DPM; Location: [facility] OR; Service: Orthopedics Medical devices from this surgery are in the Medical Devices section. LAYER WOUND CLOSURE 05/19/2023 Left .; Surgeon: Jabari Hill DPM; Location: [facility] OR; Service: Orthopedics Medical devices from this surgery are in the Medical Devices section. FOOT SURGERY 06/06/2023 Foot/Ankle/Left left FOOT TRANSMETATARSAL amputation; Surgeon: Jabari Hill DPM; Location: [facility] MAIN OR; Service: Podiatry Medical devices from this surgery are in the Medical Devices section. IR ABDOMINAL AORTOGRAM SERIALOGRAM 06/02/2023 IR ABDOMINAL AORTOGRAM SERIALOGRAM 06/02/2023 Vishnu Penn MD [facility] IR IR ULTRASOUND GUIDED VASCULAR ACCESS 06/02/2023 IR ULTRASOUND GUIDED VASCULAR ACCESS 06/02/2023 Vishnu Penn MD [facility] IR IR ANGIOGRAM FEMORAL ARTERIO SHIFT 06/02/2023 IR ANGIOGRAM FEMORAL ARTERIO SHIFT 06/02/2023 Vishnu Penn MD [facility] IR IR REVAS FEM POP ART UNILAT W HORSE STUD WORKER 06/02/2023 IR REVAS FEM POP ART UNILAT W HORSE STUD WORKER 06/02/2023 Vishnu Penn MD [facility] IR IR ANGIOGRAM FEMORAL ARTERIO SHIFT 12/27/2024 IR ANGIOGRAM FEMORAL ARTERIO SHIFT 12/27/2024 Vishnu Penn MD [facility] IR IR ULTRASOUND GUIDED VASCULAR ACCESS 12/27/2024 IR ULTRASOUND GUIDED VASCULAR ACCESS 12/27/2024 Vishnu Penn MD [facility] IR IR ABDOMINAL AORTOGRAM SERIALOGRAM 12/27/2024 IR ABDOMINAL AORTOGRAM SERIALOGRAM 12/27/2024 Vishnu Penn MD [facility] IR IR TRANSCATH ARTERIAL INFUSION THROMBOLYSIS INITIAL TREAT 12/27/2024 IR TRANSCATH ARTERIAL INFUSION THROMBOLYSIS INITIAL TREAT 12/27/2024 Vishnu Penn MD [facility] IR REVAS FEM POP ART UNILAT W HORSE STUD WORKER 12/28/2024 IR REVAS FEM POP ART UNILAT W HORSE STUD WORKER 12/28/2024 Vishnu Penn MD [facility] IR [...] INJ+CLOS 12/29/2024 Vishnu Penn MD [facility] IR Medical History Medical History Date Comments Systolic heart failure (HCC) 02/26 017 ECHO, EF 25% COPD (chronic obstructive pu lmonary disease) ([facility]) HLD (hyperlipidemia) Hypertension Emphysema, unspecified ([facility]) CAD (coronary artery disease) STEMI (ST elevation myocardi al infarction) ([facility]) STEMI with 3 NORI to RCA Cardiac pacemaker SJM Dual PPM - Dr. Cleaning History of cardiac cath 03/23/[address] aced in Right leg 03/23/2017 NH (myocardial infarction) ([facility]) 06/2016 Depression with anxiety Essential hypertension Chronic systolic heart failure (HCC) Sinus node dysfunction (HCC) 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 Cleaning Bradycardia Headache Heartburn Post-operative nausea and vomiting Pacemaker Asthma Anesthesia complication only wit h phenergan, alarming how long it takes her to wake up Family History Medical History Relation Name Comments Cancer Father Diabetes Father Hypertension Father Cancer Mother Heart Disease Mother Hypertension Mother Anesth Problems Neg Hx Relation Name Status Comments Father Alive Mother Alive Social History Tobacco Use Types Packs/Day Years Used Date Smoking Tobacco: Former Cigarettes 0.3 40 0 12/26/1981 - 12/26/2021 Passive Smoke Exposure: Past Smokeless Tobacco: Never Tobacco Cessation:Counseling Given: Not Answered Alcohol Use Standard Drinks/Week Comments Not Currently 0 (1 standard drink = 0.6 oz pur e alcohol) [facility] Utilities Answer Date Recorded In [...] Date Recorded PHQ-2 Total Score 0 12/28/2024 [facility] - Occupational Stress [...] things needed for daily living? No 05/29/2023 [facility] IP Transportation Answer D ate [...] on file Sexual Orientation Not on file Obstetrics History Last Filed Vital Signs Vital Sign Reading Time Taken Comments Blood Pressure 121/76 03/12/2025 2:02 PM EDT Pulse 70 03/12/2025 2:02 PM EDT Temperature 37 C (98.6 F) 03/12/2025 2:02 PM EDT Respiratory Rate 18 03/12/2025 2:02 PM EDT Oxygen Saturation 96% 01/01/2025 2:00 PM EDT Inhaled Oxygen Concentration - - Weight 69.8 kg (153 lb 12.8 oz) 02/07/2025 9:44 AM EDT Height 162.6 cm (5' 4 ) 02/07/2025 9:44 AM EDT Body Mass Index 26.4 02/07/2025 9:44 AM EDT Plan of Treatment Upcoming Encounters Date Type Department Care Team (Late st Contact Info) Description 03/20/2025 3:45 PM EDT Office Visit [facility] [address] [place] [address] [place] [phone] Vishnu Penn MD [address] [place] [address] [address] [place] [phone] 03/26/2025 1:15 PM EDT Appointment [facility] [address] [place] [address] Cristi Pelletier, DPM [phone] [phone] 05/10/2025 10:20 AM EDT Office Visit [facility] [address] [place] [address] [address] [place] [phone] eNtte Jalloh APRN [address] [place] [address] [address] 11/12/2025 1:30 PM EST Appointment [facility] [address] [place] [address] [place] [phone] Nette Jalloh APRN [address] [place] [address] [address] 11/12/2025 2:40 PM EST Office Visit [facility] [address] [place] [phone] MayNette, MAGAZINE REPAIRER [address] [place] [address] Health Maintenance Due Date Last Done Comments Annual Wellness Exam 1968 Hepatitis C Screening 1983 Hepatitis B Vaccine (1 of 3 - 19+ 3-dose series) 1984 Pneumococcal Vaccine 50+ (1 of 2 - PCV) 1984 Cervical Cancer Screening 1986 Pap Smear 1986 HPV/Pap Cotest 1995 Breast Cancer Screening 2005 Cologuard 2010 Colon Cancer Screening 2010 Colonoscopy 2010 FIT 2010 Sigmoidoscopy 2010 Virtual Colonography 2010 Zoster (1 of 2) 2015 COVID-19 Vaccine ( season) 2024 04/08/2022, 08/27/2021, 01/08/2021, Additional history exists DTaP/TDaP/Td (2 - Td or Tdap) 08/30/2024 08/30/2014, 06/21/1998 Influenza Vaccine (Season Ended) 2025 08/11/2022, 07/09/2021, 07/13/2017, Additional history exists Meningococcal B Vaccine Aged Out No l onger eligible based on patient's age to complete this topic Goals Goal Patient Goal Type Associated Problems [...] palpate dorsalis pedal or posterior tibial pulses. Medical Devices Implanted Type Area Preschool Substitute Teacher Device Identifier Shelf Expiration Date Model / Serial / Lot Defib Graft Tissue Myriad Thin 5 X 5cm - [id number] Implanted:Qty: 1 on 06/15/2022 by Jabari Hill DPM at [facility] Left: Foot AROA BIOSURGERY 07/27/2022 [id number] US / / [id number] Wire Denise 0.961vqu4.5in [employer] [facility] Dbl End Troc Pnt - [id number] Implanted:Qty: 2 on 06/15/2022 by Jabari Hill DPM at [facility] Left: Foot MICROAIRE SURG INSTR 11/22/2025 [id number] / / [id number] Stent Enpros 8mm 7fr Intro 38mm 80cm Icast Trachbr Be Cvr-11/04/2022 Implanted:Qty: 1 on 11/04/2022 by Vishnu Penn MD Left: Iliac Artery GETINGE [employer] [place] [id number] / / [id number] Graft Tissue Myriad Thin 5 X 5cm - [id number] Implanted:Qty: 1 on 12/23/2022 by Jabari Hill DPM at [facility] Left: Foot AROA BIOSURGERY 02/24/2025 [id number] US / / [id number] Graft Ovine Tissue 500mg Beatriz Duque - [id number] Implanted:Qty: 1 on 12/23/2022 by Jabari Hill, STANLEYM at [facility] Left: Foot AROA BIOSURGERY 07/27/2023 [id number] / / [id number] Graft Tissue Myriad Thin 5 X 5cm - [id number] Implanted:Qty: 1 on 02/10/2023 by Jabari Hill, DPM at [facility] Left: Heel AROA BIOSURGERY 03/26/2025 [id number] US / / [id number] Graft Tissue Myriad Thin 5 X 5cm - [id number] Implanted:Qty: 1 on 05/19/2023 by Jabari Hill, [facility]PM [facility] [place] Left: Foot [facility]OA [employer]OSURGERY 03/26/2025 [id number] US / / [id number] Graft Tissue Myriad Thin 5 X 5cm - [id number] Implanted:Qty: 1 on 06/06/2023 by Jabari Hill, DPM at [facility] Left: Heel AROA BIOSURGERY 02/24/2025 [id number] US / / [id number] Procedures Procedure Name Priority Date/Time Associated Diagnosis [facility] LOWER EXTREMITY ARTERIAL DUPLEX COMPLETE Routine 02/20/2025 2:08 PM EDT PAD (peripheral artery disease) Peripheral vascular angioplasty status with implants and grafts IP CONSULT TO PODIATRY Routine 01/01/2025 10:21 AM EDT Procedure Note - Santosh Caputo APRN - 01/01/2025 2:58 PM EDTThis note is in progress. Images from the original note were not included. Name: Ashley Ding Inpatient consult to Podiatry Consult performed by: Santosh Caputo APRN Consult ordered by: Jef Gutierrez PA-C Assessment/Plan Chronic left heel diabetic ulcer Critical limb ischemia of both lower extremities History of left TMA DVT, left lower extremity - No acute podiatric surgery intervention needed -Okay to discharge with follow-up - Dressing - Xeroform to heel and cover with Kerlix - Patient was advised to keep her appointment with Dr. Trevino Discussed with Dr Brooks CC: Ashley Ding is a 59 y.o. female with PMH significant for criticallimb ischemia, NH, hyperlipidemia, hypertension, COPD, CAD, asthma andleft TMA presents to the hospital with pain and coldness of her leftfoot. Patient had to stop her Eliquis and Plavix for 5 days due toneeding dental work and her left calf began to hurt and her left footturned cold. She has a history of a left transmetatarsal amputation. Shehas a chronic ulceration to the posterior heel on the left. Patient doesnot have any open wounds besides the heel ulcer. Denies any injury ortrauma to foot. She underwent tPA lysis of her left popliteal arterythrombosis. She has an appoint with Dr. Pelletier tomorrow with woundcare. No acute intervention needed. This note was completed using voice recognition technology. Despite thewriter's best efforts to proof read, it may still contain unintendederrors. Please call with questions. 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 Cleaning STEMI (ST elevation myocardial infarction) ([facility]) STEMI with 3 NORI to RCA Systolic heart failure (HCC) 02/2017 ECHO, EF 25% Past Surgical History: Procedure Laterality Date CARDIAC CATHETERIZATION Right 03/23/2017 stent placed in right leg CARDIAC PACEMAKER PLACEMENT 11/05/2016 SJM Dual PPM COLONOSCOPY CORONARY ANGIOPLASTY WITH STENT PLACEMENT 06/2016 x3 DEBRIDEMENT Left 05/19/2023 .; Surgeon: Jabari Hill DPM; Location: [facility] MAIN OR; Service:Orthopedics FEMUR FRACTURE SURGERY Right right femur fx repair FOOT SURGERY FOOT SURGERY Left 12/23/2022 Left foot heel and second and third toe debridement with application ofskin graft substitute. ; Surgeon: Jabari Hill DPM; Location: [facility] OR; Service: Orthopedics FOOT SURGERY Left 02/10/2023 Surgeon: Jabari Hill DPM; Location: [facility]; Service:Orthopedics FOOT SURGERY Left 06/06/2023 left FOOT TRANSMETATARSAL amputation; Surgeon: Jabari Hill DPM;Location: [facility]; Service: Podiatry HAMMER TOE SURGERY Left 06/15/2022 Left foot Correction of hammer toe deformity with arthroplasty second andthird toe. Left foot Application of skin graft substitute.; Surgeon:Jabari Hill DPM; Location: [facility] OR; Service: Podiatry HIP SURGERY IR ABDOMINAL [...] IR REVAS FEM POP ART UNILAT W HORSE STUD WORKER 03/13/2022 IR REVAS FEM POP ART UNILAT W HORSE STUD WORKER 03/13/2022 Kashif Wong MD EDG IR IR REVAS FEM POP ART UNILAT W HORSE STUD WORKER 06/02/2023 IR REVAS FEM POP ART UNILAT W HORSE STUD WORKER 06/02/2023 Visnhu Penn MD EDG IR IR ULTRASOUND GUIDED [...] ACCESS 06/02/2023 Vishnu Penn MD EDG IR LAYER WOUND CLOSURE Left 05/19/2023 .; Surgeon: Jabari Hill DPM; Location: [facility] OR; Service:Orthopedics SKIN GRAFT Left 06/15/2022 Surgeon: Jabari Hill DPM; Location: [facility]; Service: Podiatry SKIN GRAFT Left 12/23/2022 . ; Surgeon: Jabari Hill DPM; Location: [facility]; Service:Orthopedics SKIN GRAFT 02/10/2023 Surgeon: Jabari Hill DPM; Location: [facility]; Service:Orthopedics TOE AMPUTATION Left 02/10/2023 Left foot second toe amputation, Left foot excisional debridement withapplication of skin graft substitute; Surgeon: Jabari Hill DPM;Location: [facility]; Service: Orthopedics TOE AMPUTATION Left 05/19/2023 Left foot, amputation of third toe. Left foot, wound debridmentapplication. Left foot, skin graft substitute. Left foot wound debridmentclosure.; Surgeon: Jabari Hill DPM; Location: [facility] OR;Service: Orthopedics Family History Problem Relation Age of Onset Hypertension Mother Heart Disease Mother Cancer Mother Diabetes Father Hypertension Father Cancer Father Anesth Problems Neg Hx Social History Socioeconomic History Marital status: Spouse name: None Number of children: None Years of education: None Highest education level: None Tobacco Use Smoking status: Former Current packs/day: 0.00 Average packs/day: 0.3 packs/day for 40.0 years (10.0 ttl pk-yrs) Types: Cigarettes Start date: 12/26/1981 Quit date: 12/26/2021 Years since quittin.0 Passive exposure: Past Smokeless tobacco: Never Vaping Use Vaping status: Every Day Start date: 12/26/2021 Substances: Nicotine Substance and Sexual Activity Alcohol use: Not Currently Drug use: Never Social Drivers of Health Financial Resource Strain: Low Risk (12/28/2024) Overall Financial Resource Strain (CARDIA) Difficulty of Paying Living Expenses: Not hard at all Food Insecurity: No Food Insecurity (12/28/2024) Hunger Vital Sign Worried About Running Out of Food in the Last Year: Never true Ran Out of Food in the Last Year: Never true Transportation Needs: No Transportation Needs (12/28/2024) [facility] IP Transportation In the past 12 months, has lack of reliable transportation kept you frommedical appointments, meetings, work or from getting things needed fordaily living?: No Physical Activity: Inactive (12/28/2024) Exercise Vital Sign Days of Exercise per Week: 0 days Minutes of Exercise per Session: 0 min Stress: No Stress Concern Present (12/28/2024) [employer] - Occupational StressQuestionnaire Feeling of Stress : Not at all ROS General: appears in no acute distress Skin: warm, dry and intact Head: normocephalic, without obvious abnormality, atraumatic Lungs: breathing unlabored Neurologic: sensation grossly normal, LE exam separate Extremities/Muscoskeletal: see focused exam Vitals: 01/01/25 1100 01/01/25 1200 01/01/25 1300 01/01/25 1400 BP: 116/67 111/81 124/72 121/72 BP Location: Left arm Patient Position: Semi Fowlers Pulse: 64 80 67 67 Resp: 15 19 18 20 Temp: 98 F (36.7 C) TempSrc: Temporal SpO2: 96% 95% 100% 96% Weight: Height: Physical Exam General: Ashley appears in no acute distress Skin: warm, dry, and intact Cardio: RRR via radial pulse Head: Normocephalic, without obvious abnormality, atraumatic Neurological: sensation diminished Lungs: Unlabored Extremities/Musculoskeletal: FOCUSED LOWER EXTREMITY EXAM: Vascular: Pedal pulses 0/4 for dorsalis pedis and posterior tibialarteries bilaterally. Capillary refill time < 3 secs. No vascular lesionsof varicosities bilaterally. Msk: Muscle strength 5/5 for lower extremity extrinsic musculaturebilaterally. Range of motion is within normal limits for the ankle joint,midtarsal joint, and metatarsal phalangeal joints. Neuro: Sensation diminished to light touch. Deep tendon reflexes intactbilaterally. Dermatological: Left heel ulceration measuring 2x1.25x0.1cm which includesskin partial thickness. It does not probe to bone. There is no oh pus.There is necrosis. No malodor. Surrounding tissue is hyperkeratotic. Patient verbally consented permission allowing today's photographs - usingthe [employer] roxanne. Lab and radiographic data reviewed. Thank you for asking me to participate in your patient's care. Santosh Caputo, DWAYNE 01/01/2025 ECG AND WAVEFORMS - TELEMETRY Routine 01/01/2025 7:27 AM EDT HEPARIN ANTI-XA, UNF Early AM 01/01/2025 4:41 AM EDT CBC Timed 01/01/2025 4:41 AM EDT HEPARIN ANTI-XA, UNF Early AM 12/31/2024 4:05 AM EDT HEPARIN ANTI-XA, UNF Timed 12/30/2024 7:46 PM EDT ECG AND WAVEFORMS - TELEMETRY Routine 12/30/2024 7:17 PM EDT NC US EVALUATE PSEUDOANEURYSM RIGHT Routine 12/30/2024 3:33 PM EDT HEPARIN ANTI-XA, UNF Timed 12/30/2024 12:54 PM EDT FIBRINOGEN Timed 12/30/2024 10:04 AM EDT HEPARIN ANTI-XA, UNF Early AM 12/30/2024 4:07 AM EDT PHOSPHORUS LEVEL Early AM 12/30/2024 4:07 AM EDT MAGNESIUM LEVEL Early AM 12/30/2024 4:07 AM EDT CALCIUM, IONIZED Early AM 12/30/2024 4:07 AM EDT CBC Early AM 12/30/2024 4:07 AM EDT BASIC METABOLIC PANEL Early AM 12/30/2024 4:07 AM EDT FIBRINOGEN Timed 12/30/2024 4:07 AM EDT IP CONSULT TO PHARMACY Routine 12/30/2024 12:15 AM EDT IR REVAS TIB PER ART UNILAT INIT VES W HORSE STUD WORKER MAYITO 12/29/2024 11:37 PM EDT PAD (peripheral artery disease) IR TRANS ART OR PAO FOR THROMB SUBSQ DAY FU CATH CONT INJ+CLOS AMYITO 12/29/2024 11:37 PM EDT IR REVAS TIB PER ART UNILAT EA ADD W HORSE STUD WORKER MAYITO 12/29/2024 11:37 PM EDT PAD (peripheral artery disease) IR REVAS FEM POP ART UNILAT W HORSE STUD WORKER ATHEREC MAYITO 12/29/2024 11:37 PM EDT PAD (peripheral artery disease) FIBRINOGEN Timed 12/29/2024 3:53 PM EDT ECG AND WAVEFORMS - TELEMETRY Routine 12/29/2024 11:42 AM EDT FIBRINOGEN STAT 12/29/2024 9:57 AM EDT CALCIUM, IONIZED Early AM 12/29/2024 7:08 AM EDT PHOSPHORUS LEVEL Early AM 12/29/2024 5:23 AM EDT MAGNESIUM LEVEL Early AM 12/29/2024 5:23 AM EDT CBC Early AM 12/29/2024 5:23 AM EDT BASIC METABOLIC PANEL Early AM 12/29/2024 5:23 AM EDT ECG AND WAVEFORMS - TELEMETRY Routine 12/28/2024 6:46 PM EDT IR TRANS ART OR PAO FOR THROMB TREAT SUBSQ DAY FU CATH CONT INJ MAYITO 12/28/2024 6:07 PM EDT IR REVAS FEM POP ART UNILAT W HORSE STUD WORKER MAYITO 12/28/2024 6:07 PM EDT PAD (peripheral artery disease) ECG AND WAVEFORMS - TELEMETRY Routine 12/28/2024 7:31 AM EDT PHOSPHORUS LEVEL Early AM 12/28/2024 4:08 AM EDT MAGNESIUM LEVEL Early AM 12/28/2024 4:08 AM EDT CALCIUM, IONIZED Early AM 12/28/2024 4:08 AM EDT BASIC METABOLIC PANEL Routine 12/28/2024 4:08 AM EDT PAD (peripheral artery disease) CBC WITH DIFF Routine 12/28/2024 4:08 AM EDT PAD (peripheral artery disease) FIBRINOGEN Routine 12/28/2024 4:08 AM EDT PAD (peripheral artery disease) PARTIAL THROMBOPLASTIN TIME Routine 12/28/2024 4:08 AM EDT PAD (peripheral artery disease) PT / INR Routine 12/28/2024 4:08 AM EDT PAD (peripheral artery disease) FIBRINOGEN Routine 12/27/2024 3:04 PM EDT PAD (peripheral artery disease) PARTIAL THROMBOPLASTIN TIME Routine 12/27/2024 3:04 PM EDT PAD (peripheral artery disease) PT / INR Routine 12/27/2024 3:04 PM EDT PAD (peripheral artery disease) BASIC METABOLIC PANEL Routine 12/27/2024 12:03 PM EDT PAD (peripheral artery disease) CBC WITH DIFF Routine 12/27/2024 12:03 PM EDT PAD (peripheral artery disease) IP CONSULT TO WOUND CARE Routine 12/27/2024 11:41 AM EDT IR TRANSCATH ARTERIAL INFUSION THROMBOLYSIS INITIAL TREAT Routine 12/27/2024 11:08 AM EDT PAD (peripheral artery disease) IR ABDOMINAL AORTOGRAM SERIALOGRAM Routine 12/27/2024 11:08 AM EDT PAD (peripheral artery disease) IR ULTRASOUND GUIDED VASCULAR ACCESS Routine 12/27/2024 11:08 AM EDT PAD (peripheral artery disease) IR ANGIOGRAM FEMORAL ARTERIO SHIFT Routine 12/27/2024 11:08 AM EDT PAD (peripheral artery disease) ADMIT Routine 12/27/2024 10:54 AM EDT PT / INR Routine 12/27/2024 9:26 AM EDT PAD (peripheral artery disease) CREATININE Routine 12/27/2024 9:23 AM EDT PAD (peripheral artery disease) BLOOD UREA NITROGEN Routine 12/27/2024 9:23 AM EDT PAD (peripheral artery disease) XR FOOT LEFT AP LATERAL AND [place] Routine 12/15/2024 3:37 PM EDT Ulcer of left foot with fat layer exposed (HCC) [facility] LOWER EXTREMITY ARTERIAL DUPLEX COMPLETE Routine 12/15/2024 2:17 PM EDT PAD (peripheral artery disease) [facility] LOWER EXTREMITY VENOUS LEFT Routine 12/15/2024 2:16 PM EDT Pain of right lower extremity from Last 3 Months Results * [facility] LOWER EXTREMITY ARTERIAL DUPLEX COMPLETE (02/20/2025 2:08 PM EDT) Only the most recent of2 resultswithin the time period is included. Anatomical Region Laterality Modality Vascular, Leg Electrocardiogra phy 02/20/2025 1:19 PM EDT Impressions 02/20/2025 2:26 PM EDT Conclusions * Right: * RODOLFO: 0.63 (DPA, distal HORSE STUD WORKER occluded) / TBI: 0, absent waveform. There is an occlusion of the distal posterior tibial artery. Dampened, biphasic flow of the proximal and mid posterior tibial artery. Mild to moderate plaque noted in the arteries of the right lower extremity. * Left: * RODOLFO: 1.29 (HORSE STUD WORKER) / TBI: 0, metatarsal amputation. 20-49 % stenosis of the profunda, 145 cm/s. There is an occlusion of the proximal anterior tibial artery and the mid peroneal artery. Mild to moderate plaque noted in the arteries of the left lower extremity. Narrative Procedure Note Eusebio De Leon MD - 02/20/2025 IMPRESSION Conclusions * Right: * RODOLFO: 0.63 (DPA, distal HORSE STUD WORKER occluded) / TBI: 0, absent waveform. Thereis an occlusion of the distal posterior tibial artery. Dampened, biphasicflow of the proximal and mid posterior tibial artery. Mild to moderate plaquenoted in the arteries of the right lower extremity. * Left: * RODOLFO: 1.29 (HORSE STUD WORKER) / TBI: 0, metatarsal amputation. 20-49 % stenosis ofthe profunda, 145 cm/s. There is an occlusion of the proximal anteriortibial artery and the mid peroneal artery. Mild to moderate plaque noted in the arteries of the left lower extremity. us Nette Jalloh MAGAZINE REPAIRER IMG VASCULAR ORDERABLES Final R esult * ECG AND WAVEFORMS - TELEMETRY (01/01/2025 7:27 AM EDT) Only the most recent of5 resultswithin the time period is included. ECG INTERPRET Atrial Paced [facility] 01/01/2025 7:27 AM EDT Narrative [facility] - 01/01/2025 7:27 AM EDT See Clinical Report link for waveform capture us Unknown Provider POINT OF CARE CARDIOLOGY Final Result Performing Organization Address City/[facility] Co de Phone Number [facility] [address] [place] [address] * HEPARIN ANTI-XA, UNF (01/01/2025 4:41 AM EDT) Only the most recent of5 resultswithin the time period is included. Pathologist [facility] Heparin Level UNF 0.58 0.30 - 0.70 IU/mL 01/01/2025 5:10 AM EDT [facility] Comment:The therapeutic rang e for heparinized patients monitored by the Heparin Lvl UF is 0.30-0.70 IU/mL. Blood VENOUS BLOOD / Unknown Venipuncture / Unknown 01/01/2025 4:41 AM EDT 01/01/2025 4:59 AM EDT us Asa Cochran DO HEMATOLOGY ORDERABLES Final Resu lt Performing Organization Address [facility] Co de Phone Number [facility] [address] [place] [address] * (ABNORMAL) CBC (01/01/2025 4:41 AM EDT) Only the most recent of3 resultswithin the time period is included. WBC 6.2 3.7 - 10.3 x10(3)/mcL 01/01/2025 5:15 AM EDT [facility] [place] RBC 3.46(L) 3.90 - 5.20 x10(6)/mcL 01/01/2025 5:15 AM EDT [facility], [facility] Hgb 10.4(L) 11.2 - 15.7 g/dL 01/01/2025 5:15 AM EDT [facility] Hct 31.5(L) 34.0 - 45.0 % 01/01/2025 5:15 AM EDT [facility] MCV 91.0 80.0 - 100.0 fL 01/01/2025 5:15 AM EDT [facility] MCH 30.1 26.0 - 34.0 pg 01/01/2025 5:15 AM EDT [facility] MCHC 33.0 30.7 - 35.5 g/dL 01/01/2025 5:15 AM EDT [facility] RDW 13.6 <=14.9 % 01/01/2025 5:15 AM EDT [facility] Platelet 186 155 - 369 x10(3)/mcL 01/01/2025 5:15 AM EDT [facility] MPV 10.5 8.8 - 12.5 fL 01/01/2025 5:15 AM EDT [facility] Blood VENOUS BLOOD / Unknown Venipuncture / Unknown 01/01/2025 4:41 AM EDT 01/01/2025 4:59 AM EDT us Aas Cochran DO HEMATOLOGY ORDERABLES Final Resu lt [facility], [facility] [address] , [place] [address] * NC US EVALUATE PSEUDOANEURYSM RIGHT (12/30/2024 3:33 PM EDT) Anatomical Region Laterality Modality Vascular Vascular Imaging 12/30/2024 3:10 PM EDT Impressions 12/31/2024 11:25 AM EDT Conclusions * No evidence of a pseudoaneurysm right groin. * Patent flow is seen in the right common femoral artery and the proximal profunda and superficial femoral artery. * No evidence of thrombus in the right common femoral vein and proximal superficial femoral vein. Narrative Procedure Note Allan Powers MD - 12/31/2024 IMPRESSION Conclusions * No evidence of a pseudoaneurysm right groin. * Patent flow is seen in the right common femoral artery and theproximal profunda and superficial femoral artery. * No evidence of thrombus in the right common femoral vein andproximal superficial femoral vein. Jef Gutierrez PA-C IMG VASCULAR ORDERABLES Final Re sult * FIBRINOGEN (12/30/2024 10:04 AM EDT) Only the most recent of6 resultswithin the time period is included. Fibrinogen 286 196 - 444 mg/dL 12/30/2024 10:29 AM EDT [facility] Blood VENOUS BLOOD / Unknown Venipuncture / Unknown 12/30/2024 10:04 AM EDT 12/30/2024 10:18 AM EDT Vishnu Penn MD HEMATOLOGY ORDERABLES Final R esult Performing Organization Address City/[facility] Co de Phone Number [facility] [address] [place] [address] , [place] [address] * IONIZED CALCIUM - INPATIENT (12/30/2024 4:07 AM EDT) Only the most recent of3 resultswithin the time period is included. Calcium Ionized 1.18 1.12 - 1.32 mmol/L 12/30/2024 4:41 AM EDT [facility] Blood VENOUS BLOOD / Unknown Venipuncture / Unknown 12/30/2024 4:07 AM EDT 12/30/2024 4:37 AM EDT Vishnu Penn MD CHEMISTRY ORDERABLES Final Re sult Performing Organization Address City/[facility]/ZIP Co de Phone Number [facility] [employer] [address] , [place] [address] * PHOSPHORUS LEVEL (12/30/2024 4:07 AM EDT) Only the most recent of3 resultswithin the time period is included. Phosphorus 3.1 2.5 - 4.5 mg/dL 12/30/2024 5:11 AM EDT [facility] [employer] [place] Blood VENOUS BLOOD / Unknown Venipuncture / Unknown 12/30/2024 4:07 AM EDT 12/30/2024 4:37 AM EDT Vishnu Penn MD CHEMISTRY ORDERABLES Final Re sult Performing Organization Address City/[facility]/ZIP Co de Phone Number [facility], [facility] [address] , [place] [address] * MAGNESIUM LEVEL (12/30/2024 4:07 AM EDT) Only the most recent of3 resultswithin the time period is included. Magnesium 2.1 1.6 - 2.4 mg/dL 12/30/2024 5:11 AM EDT [facility] Blood VENOUS BLOOD / Unknown Venipuncture / Unknown 12/30/2024 4:07 AM EDT 12/30/2024 4:37 AM EDT Vishnu Penn MD CHEMISTRY ORDERABLES Final Re sult Performing Organization Address [facility] Co de Phone Number [facility] [employer], [facility] [address] , [place] [address] * (ABNORMAL) BASIC METABOLIC PANEL (12/30/2024 4:07 AM EDT) Only the most recent of4 resultswithin the time period is included. Sodium 136 136 - 145 mmol/L 12/30/2024 5:11 AM EDT [facility] Potassium 4.0 3.5 - 5.0 mmol/L 12/30/2024 5:11 AM EDT [facility] Chloride 101 98 - 107 mmol/L 12/30/2024 5:11 AM EDT [facility] Total CO2 23 22 - 29 mmol/L 12/30/2024 5:11 AM EDT [facility] Anion Gap 12 7 - 16 mmol/L 12/30/2024 5:11 AM EDT [facility] Calcium 9.1 8.6 - 10.4 mg/dL 12/30/2024 5:11 AM EDT PREF[facility]ED [employer], [facility] Glucose Lvl 153(H) 70 - 99 mg/dL 12/30/2024 5:11 AM EDT [facility] [employer] [facility] BUN 10 6 - 20 mg/dL 12/30/2024 5:[address] [facility] [employer] [facility] Creatinine 0.80 0.51 - 1.30 mg/dL 12/30/2024 5:11 AM EDT [facility] [employer] [facility] eGFR (CKD-EPIcr 2020) 84 >=60 mL/min/1.7 3 m2 12/30/2024 5:11 AM EDT [facility] [employer] [facility] Comment:Estimated GFR was ca lculated using the CKD-EPIcr (2020) equation refit without race. The equation is recommended by the National Kidney Foundation - [place] [employer] of Nephrology Task Force. Blood VENOUS BLOOD / Unknown Venipuncture / Unknown 12/30/2024 4:07 AM EDT 12/30/2024 4:37 AM EDT us Vishnu Penn MD CHEMISTRY ORDERABLES Final Re sult [facility] [employer] [facility] [address] , [place] [address] * IR REVAS TIB PER ART UNILAT EA ADD W HORSE STUD WORKER (12/29/2024 11:37 PM EDT) Anatomical Region Laterality Modality Interventional R adiology Impressions 01/04/2025 12:13 AM EDT : Technically successful left SFA atherectomy utilizing SilverHawk LS device and angioplasty with 6 x 250 mm drug-coated balloon with resolution of 60% stenosis to less than 10% residual stenosis. Technically successful left PT angioplasty with 2.5 x 200 mm balloon, followed by 3 x 200 mm balloon with resolution of 60% stenosis to less than 10% residual stenosis. Technically successful left peroneal artery angioplasty with 2.5 x 200 mm balloon, followed by 3 x 200 mm balloon with resolution of 80% stenosis to less than 10% residual stenosis. The patient will need close aggressive wound care and anticoagulation to heal the wound. TID [id number] Narrative 01/04/2025 12:13 AM EDT ACCESSION NUMBER: [id number]. DATE OF PROCEDURE: 12/29/2024. PREOPERATIVE DIAGNOSIS: Left lower extremity PAD (peripheral arterial disease) with nonhealing ulceration, status post TMA. POSTOPERATIVE DIAGNOSIS: Left lower extremity PAD (peripheral arterial disease) with nonhealing ulceration, status post TMA. PROCEDURES: Left lower extremity angiogram via catheter and sheath. 6 mm Spider wire placed in the left popliteal artery. Left SFA and popliteal artery atherectomy utilizing SilverHawk LS device. Left SFA and popliteal artery angioplasty with 6 x 250 mm drug-coated balloon. Completion angiogram. Left popliteal artery secondary suction thrombectomy with 6-Bermudian guide catheter. Left PT angioplasty with 2.5 x 200 mm balloon, followed by 3 x 200 mm balloon. Left peroneal artery angioplasty with 2.5 x 200 mm balloon, followed by 3 x 200 mm balloon Completion angiogram. Perclose in the right common femoral artery. SURGEON: Vishnu Penn MD. ANESTHESIA: Local with sedation. SEDATION TIME: 92 minutes. SEDATION AGENT: Versed and fentanyl. CONTRAST USED: 60 mL FLUORO TIME: 23.6 minutes, 416 mGy. SPECIMENS: None. DRAINS: None. DISPOSITION: Patient stable to Recovery Room.. INDICATIONS: The patient is a 59-year-old female with a history of lower extremity PAD with nonhealing left TMA. The patient underwent evaluation and was found to have an embolic event from critical stenosis in the SFA. The patient was found to have embolus to the popliteal and tibial vessel. The patient is status post 48-hour thrombolytic therapy and was brought back today for followup angiogram. Indications, benefits, and risks of the procedure were explained to the patient, patient understands and informed consent was obtained. OPERATIVE PROCEDURE: The patient was identified and brought to the Surgical Nurse. After adequate sedation was obtained, the patient was prepped and draped in the usual sterile fashion in the supine position over the entire right lower abdomen and bilateral groins, including the catheter complex. At this time, left lower extremity angiogram was performed via catheter and sheath. At this time, we noted there was still stenosis noted in the mid SFA, approximately 60% stenosis x2 sites. Anterior tibial artery continued to be occluded. There was 80% stenosis in the proximal peroneal artery and 60% stenosis in the proximal PT. Again, there was no flow past the ankle due to occlusion of the PT and peroneal artery. There was only collateral flow down to the foot. At this time, decision was made to intervene on the SFA lesion. The patient was given 7000 units of systemic heparin. After waiting for 5 minutes, a 6 mm Spider wire was deployed in the left popliteal artery. At this time, left SFA and popliteal artery were atherectomized using SilverHawk LS in multiple quadrants over the 2 lesions. Large amount of plaque was extracted and removed. After this was completed, angiogram was performed and revealed significant reduction in plaque burden. At this time, the SFA and popliteal artery were angioplastied with 6 x 250 mm drug-coated balloon to prolong the patency. Balloon was inflated to 8 MALACHI and pressure was held for 3 minutes. Completion angiogram revealed good resolution of stenosis. However, at this time, we noted there appeared to be embolization to the popliteal artery with minimal flow to the tibial vessel. At this time, catheter and wire was placed in the popliteal artery and secondary suction thrombectomy was performed with 6-Bermudian guide catheter. There were some small specks of thrombus and embolus extracted. After this was completed, angiogram was performed and revealed better flow to the TPT and PT. However, PT and peroneal artery were found to have stenosis, at both sites at the origins. At this time, the left PT was angioplastied with 2.5 x 200 mm balloon, followed by 3 x 200 mm balloon. Balloon was inflated to 10 MALACHI and pressure was held for 2 minutes. After this was completed, catheter was disengaged and engaged in the left peroneal artery. Peroneal artery was angioplastied with a 2.5 x 200 mm balloon, followed by 3 x 200 mm balloon. Balloon was again inflated to 10 MALACHI and pressure was held for 3 minutes. Completion angiogram revealed improved flow to the tibial vessel; however, again, there is no complete continuous flow to the foot due to the distal PT and peroneal occlusion. Again, due to the patient's poor cardiac output and low EF, there was again very slow flow. After this was completed, we determined that this was the best that this will be and decision was made to complete the procedure. All catheters, wires, and sheaths were removed. The right common femoral artery access site was then closed with a Perclose device. Good hemostasis was achieved. Patient tolerated the procedure well and was transferred back to the Recovery Room in stable condition RADIOGRAPHIC INTERPRETATION: Left lower extremity angiogram with runoff revealed patent common femoral artery and profunda. The mid SFA was found to have stenosis of approximately 60%, as well as distal SFA. AT continued to be occluded. There was 80% stenosis in the proximal peroneal artery and 60% proximal PT. Both PT and peroneal artery were occluded in the mid calf with collateralization to the foot. CATHETER-BASED INTERVENTION: After atherectomy of the SFA with a SilverHawk LS device and angioplasty with 6 x 250 mm drug-coated balloon, there was resolution of 60% stenosis to less than 10% residual stenosis. After angioplasty of the PT with 2.5 x 200 mm balloon, followed by 3 x 200 mm balloon, there was resolution of 60% stenosis to less than 10% residual stenosis. After angioplasty of the peroneal artery with 2.5 x 200 mm balloon, followed by 3 x 200 mm balloon, there was resolution of 80% stenosis to less than 10% residual stenosis; however, there is still no direct flow down to the foot due to the distal occlusion. There is, however, a large amount of collateral down to the foot. Again, due to the patient's poor EF, there was very slow flow noted. The patient will need to be anticoagulated for optimal healing. us Vishnu Penn MD IMG IR ORDERABLES Final Resul t * IR REVAS TIB PER ART UNILAT INIT VES W [employer]SE STUD WORKER (12/29/2024 11:37 PM EDT) Anatomical Region Laterality Modality Interventional R adiology Impressions 01/04/2025 12:13 AM EDT : Technically successful left SFA atherectomy utilizing SilverHawk LS device and angioplasty with 6 x 250 mm drug-coated balloon with resolution of 60% stenosis to less than 10% residual stenosis. Technically successful left PT angioplasty with 2.5 x 200 mm balloon, followed by 3 x 200 mm balloon with resolution of 60% stenosis to less than 10% residual stenosis. Technically successful left peroneal artery angioplasty with 2.5 x 200 mm balloon, followed by 3 x 200 mm balloon with resolution of 80% stenosis to less than 10% residual stenosis. The patient will need close aggressive wound care and anticoagulation to heal the wound. TID [id number] Narrative 01/04/2025 12:13 AM EDT ACCESSION NUMBER: [id number]. DATE OF PROCEDURE: 12/29/2024. PREOPERATIVE DIAGNOSIS: Left lower extremity PAD (peripheral arterial disease) with nonhealing ulceration, status post TMA. POSTOPERATIVE DIAGNOSIS: Left lower extremity PAD (peripheral arterial disease) with nonhealing ulceration, status post TMA. PROCEDURES: Left lower extremity angiogram via catheter and sheath. 6 mm Spider wire placed in the left popliteal artery. Left SFA and popliteal artery atherectomy utilizing [employer] LS device. Left SFA and popliteal artery angioplasty with 6 x 250 mm drug-coated balloon. Completion angiogram. Left popliteal artery secondary suction thrombectomy with 6-Bermudian guide catheter. Left PT angioplasty with 2.5 x 200 mm balloon, followed by 3 x 200 mm balloon. Left peroneal artery angioplasty with 2.5 x 200 mm balloon, followed by 3 x 200 mm balloon Completion angiogram. Perclose in the right common femoral artery. SURGEON: Vishnu Penn MD. ANESTHESIA: Local with sedation. SEDATION TIME: 92 minutes. SEDATION AGENT: Versed and fentanyl. CONTRAST USED: 60 mL FLUORO TIME: 23.6 minutes, 416 mGy. SPECIMENS: None. DRAINS: None. DISPOSITION: Patient stable to Recovery Room.. INDICATIONS: The patient is a 59-year-old female with a history of lower extremity PAD with nonhealing left TMA. The patient underwent evaluation and was found to have an embolic event from critical stenosis in the SFA. The patient was found to have embolus to the popliteal and tibial vessel. The patient is status post 48-hour thrombolytic therapy and was brought back today for followup angiogram. Indications, benefits, and risks of the procedure were explained to the patient, patient understands and informed consent was obtained. OPERATIVE PROCEDURE: The patient was identified and brought to the Surgical Nurse. After adequate sedation was obtained, the patient was prepped and draped in the usual sterile fashion in the supine position over the entire right lower abdomen and bilateral groins, including the catheter complex. At this time, left lower extremity angiogram was performed via catheter and sheath. At this time, we noted there was still stenosis noted in the mid SFA, approximately 60% stenosis x2 sites. Anterior tibial artery continued to be occluded. There was 80% stenosis in the proximal peroneal artery and 60% stenosis in the proximal PT. Again, there was no flow past the ankle due to occlusion of the PT and peroneal artery. There was only collateral flow down to the foot. At this time, decision was made to intervene on the SFA lesion. The patient was given 7000 units of systemic heparin. After waiting for 5 minutes, a 6 mm Spider wire was deployed in the left popliteal artery. At this time, left SFA and popliteal artery were atherectomized using SilverHawk LS in multiple quadrants over the 2 lesions. Large amount of plaque was extracted and removed. After this was completed, angiogram was performed and revealed significant reduction in plaque burden. At this time, the SFA and popliteal artery were angioplastied with 6 x 250 mm drug-coated balloon to prolong the patency. Balloon was inflated to 8 MALACHI and pressure was held for 3 minutes. Completion angiogram revealed good resolution of stenosis. However, at this time, we noted there appeared to be embolization to the popliteal artery with minimal flow to the tibial vessel. At this time, catheter and wire was placed in the popliteal artery and secondary suction thrombectomy was performed with 6-Bermudian guide catheter. There were some small specks of thrombus and embolus extracted. After this was completed, angiogram was performed and revealed better flow to the TPT and PT. However, PT and peroneal artery were found to have stenosis, at both sites at the origins. At this time, the left PT was angioplastied with 2.5 x 200 mm balloon, followed by 3 x 200 mm balloon. Balloon was inflated to 10 MALACHI and pressure was held for 2 minutes. After this was completed, catheter was disengaged and engaged in the left peroneal artery. Peroneal artery was angioplastied with a 2.5 x 200 mm balloon, followed by 3 x 200 mm balloon. Balloon was again inflated to 10 MALACHI and pressure was held for 3 minutes. Completion angiogram revealed improved flow to the tibial vessel; however, again, there is no complete continuous flow to the foot due to the distal PT and peroneal occlusion. Again, due to the patient's poor cardiac output and low EF, there was again very slow flow. After this was completed, we determined that this was the best that this will be and decision was made to complete the procedure. All catheters, wires, and sheaths were removed. The right common femoral artery access site was then closed with a Perclose device. Good hemostasis was achieved. Patient tolerated the procedure well and was transferred back to the Recovery Room in stable condition RADIOGRAPHIC INTERPRETATION: Left lower extremity angiogram with runoff revealed patent common femoral artery and profunda. The mid SFA was found to have stenosis of approximately 60%, as well as distal SFA. AT continued to be occluded. There was 80% stenosis in the proximal peroneal artery and 60% proximal PT. Both PT and peroneal artery were occluded in the mid calf with collateralization to the foot. CATHETER-BASED INTERVENTION: After atherectomy of the SFA with a SilverHawk LS device and angioplasty with 6 x 250 mm drug-coated balloon, there was resolution of 60% stenosis to less than 10% residual stenosis. After angioplasty of the PT with 2.5 x 200 mm balloon, followed by 3 x 200 mm balloon, there was resolution of 60% stenosis to less than 10% residual stenosis. After angioplasty of the peroneal artery with 2.5 x 200 mm balloon, followed by 3 x 200 mm balloon, there was resolution of 80% stenosis to less than 10% residual stenosis; however, there is still no direct flow down to the foot due to the distal occlusion. There is, however, a large amount of collateral down to the foot. Again, due to the patient's poor EF, there was very slow flow noted. The patient will need to be anticoagulated for optimal healing. us Vishnu Penn MD G IR ORDERABLES Final Resul t * IR REVAS FEM POP ART UNILAT W H[employer]SE STUD WORKER ATHEREC (12/29/2024 11:37 PM EDT) Anatomical Region Laterality Modality Interventional R adiology Impressions 01/04/2025 12:13 AM EDT : Technically successful left SFA atherectomy utilizing SilverHawk LS device and angioplasty with 6 x 250 mm drug-coated balloon with resolution of 60% stenosis to less than 10% residual stenosis. Technically successful left PT angioplasty with 2.5 x 200 mm balloon, followed by 3 x 200 mm balloon with resolution of 60% stenosis to less than 10% residual stenosis. Technically successful left peroneal artery angioplasty with 2.5 x 200 mm balloon, followed by 3 x 200 mm balloon with resolution of 80% stenosis to less than 10% residual stenosis. The patient will need close aggressive wound care and anticoagulation to heal the wound. TID [id number] Narrative 01/04/2025 12:13 AM EDT ACCESSION NUMBER: [id number]. DATE OF PROCEDURE: 12/29/2024. PREOPERATIVE DIAGNOSIS: Left lower extremity PAD (peripheral arterial disease) with nonhealing ulceration, status post TMA. POSTOPERATIVE DIAGNOSIS: Left lower extremity PAD (peripheral arterial disease) with nonhealing ulceration, status post TMA. PROCEDURES: Left lower extremity angiogram via catheter and sheath. 6 mm Spider wire placed in the left popliteal artery. Left SFA and popliteal artery atherectomy utilizing [employer] LS device. Left SFA and popliteal artery angioplasty with 6 x 250 mm drug-coated balloon. Completion angiogram. Left popliteal artery secondary suction thrombectomy with 6-Bermudian guide catheter. Left PT angioplasty with 2.5 x 200 mm balloon, followed by 3 x 200 mm balloon. Left peroneal artery angioplasty with 2.5 x 200 mm balloon, followed by 3 x 200 mm balloon Completion angiogram. Perclose in the right common femoral artery. SURGEON: Vishnu Penn MD. ANESTHESIA: Local with sedation. SEDATION TIME: 92 minutes. SEDATION AGENT: Versed and fentanyl. CONTRAST USED: 60 mL FLUORO TIME: 23.6 minutes, 416 mGy. SPECIMENS: None. DRAINS: None. DISPOSITION: Patient stable to Recovery Room.. INDICATIONS: The patient is a 59-year-old female with a history of lower extremity PAD with nonhealing left TMA. The patient underwent evaluation and was found to have an embolic event from critical stenosis in the SFA. The patient was found to have embolus to the popliteal and tibial vessel. The patient is status post 48-hour thrombolytic therapy and was brought back today for followup angiogram. Indications, benefits, and risks of the procedure were explained to the patient, patient understands and informed consent was obtained. OPERATIVE PROCEDURE: The patient was identified and brought to the Surgical Nurse. After adequate sedation was obtained, the patient was prepped and draped in the usual sterile fashion in the supine position over the entire right lower abdomen and bilateral groins, including the catheter complex. At this time, left lower extremity angiogram was performed via catheter and sheath. At this time, we noted there was still stenosis noted in the mid SFA, approximately 60% stenosis x2 sites. Anterior tibial artery continued to be occluded. There was 80% stenosis in the proximal peroneal artery and 60% stenosis in the proximal PT. Again, there was no flow past the ankle due to occlusion of the PT and peroneal artery. There was only collateral flow down to the foot. At this time, decision was made to intervene on the SFA lesion. The patient was given 7000 units of systemic heparin. After waiting for 5 minutes, a 6 mm Spider wire was deployed in the left popliteal artery. At this time, left SFA and popliteal artery were atherectomized using SilverHawk LS in multiple quadrants over the 2 lesions. Large amount of plaque was extracted and removed. After this was completed, angiogram was performed and revealed significant reduction in plaque burden. At this time, the SFA and popliteal artery were angioplastied with 6 x 250 mm drug-coated balloon to prolong the patency. Balloon was inflated to 8 MALACHI and pressure was held for 3 minutes. Completion angiogram revealed good resolution of stenosis. However, at this time, we noted there appeared to be embolization to the popliteal artery with minimal flow to the tibial vessel. At this time, catheter and wire was placed in the popliteal artery and secondary suction thrombectomy was performed with 6-Bermudian guide catheter. There were some small specks of thrombus and embolus extracted. After this was completed, angiogram was performed and revealed better flow to the TPT and PT. However, PT and peroneal artery were found to have stenosis, at both sites at the origins. At this time, the left PT was angioplastied with 2.5 x 200 mm balloon, followed by 3 x 200 mm balloon. Balloon was inflated to 10 MALACHI and pressure was held for 2 minutes. After this was completed, catheter was disengaged and engaged in the left peroneal artery. Peroneal artery was angioplastied with a 2.5 x 200 mm balloon, followed by 3 x 200 mm balloon. Balloon was again inflated to 10 MALACHI and pressure was held for 3 minutes. Completion angiogram revealed improved flow to the tibial vessel; however, again, there is no complete continuous flow to the foot due to the distal PT and peroneal occlusion. Again, due to the patient's poor cardiac output and low EF, there was again very slow flow. After this was completed, we determined that this was the best that this will be and decision was made to complete the procedure. All catheters, wires, and sheaths were removed. The right common femoral artery access site was then closed with a Perclose device. Good hemostasis was achieved. Patient tolerated the procedure well and was transferred back to the Recovery Room in stable condition RADIOGRAPHIC INTERPRETATION: Left lower extremity angiogram with runoff revealed patent common femoral artery and profunda. The mid SFA was found to have stenosis of approximately 60%, as well as distal SFA. AT continued to be occluded. There was 80% stenosis in the proximal peroneal artery and 60% proximal PT. Both PT and peroneal artery were occluded in the mid calf with collateralization to the foot. CATHETER-BASED INTERVENTION: After atherectomy of the SFA with a SilverHawk LS device and angioplasty with 6 x 250 mm drug-coated balloon, there was resolution of 60% stenosis to less than 10% residual stenosis. After angioplasty of the PT with 2.5 x 200 mm balloon, followed by 3 x 200 mm balloon, there was resolution of 60% stenosis to less than 10% residual stenosis. After angioplasty of the peroneal artery with 2.5 x 200 mm balloon, followed by 3 x 200 mm balloon, there was resolution of 80% stenosis to less than 10% residual stenosis; however, there is still no direct flow down to the foot due to the distal occlusion. There is, however, a large amount of collateral down to the foot. Again, due to the patient's poor EF, there was very slow flow noted. The patient will need to be anticoagulated for optimal healing. us Vishnu Penn MD IMG IR ORDERABLES Final Resul t * IR TRANS ART OR PAO FOR THROMB SUBSQ DAY FU CATH CONT INJ+CLOS (12/29/2024 11:37 PM EDT) Anatomical Region Laterality Modality Interventional R adiology Impressions 01/04/2025 12:13 AM EDT : Technically successful left SFA atherectomy utilizing SilverHawk LS device and angioplasty with 6 x 250 mm drug-coated balloon with resolution of 60% stenosis to less than 10% residual stenosis. Technically successful left PT angioplasty with 2.5 x 200 mm balloon, followed by 3 x 200 mm balloon with resolution of 60% stenosis to less than 10% residual stenosis. Technically successful left peroneal artery angioplasty with 2.5 x 200 mm balloon, followed by 3 x 200 mm balloon with resolution of 80% stenosis to less than 10% residual stenosis. The patient will need close aggressive wound care and anticoagulation to heal the wound. NICOLAS [id number] Narrative 01/04/2025 12:13 AM EDT ACCESSION NUMBER: [id number]. DATE OF PROCEDURE: 12/29/2024. PREOPERATIVE DIAGNOSIS: Left lower extremity PAD (peripheral arterial disease) with nonhealing ulceration, status post TMA. POSTOPERATIVE DIAGNOSIS: Left lower extremity PAD (peripheral arterial disease) with nonhealing ulceration, status post TMA. PROCEDURES: Left lower extremity angiogram via catheter and sheath. 6 mm Spider wire placed in the left popliteal artery. Left SFA and popliteal artery atherectomy utilizing [employer] LS device. Left SFA and popliteal artery angioplasty with 6 x 250 mm drug-coated balloon. Completion angiogram. Left popliteal artery secondary suction thrombectomy with 6-Bermudian guide catheter. Left PT angioplasty with 2.5 x 200 mm balloon, followed by 3 x 200 mm balloon. Left peroneal artery angioplasty with 2.5 x 200 mm balloon, followed by 3 x 200 mm balloon Completion angiogram. Perclose in the right common femoral artery. SURGEON: Vishnu Penn MD. ANESTHESIA: Local with sedation. SEDATION TIME: 92 minutes. SEDATION AGENT: Versed and fentanyl. CONTRAST USED: 60 mL FLUORO TIME: 23.6 minutes, 416 mGy. SPECIMENS: None. DRAINS: None. DISPOSITION: Patient stable to Recovery Room.. INDICATIONS: The patient is a 59-year-old female with a history of lower extremity PAD with nonhealing left TMA. The patient underwent evaluation and was found to have an embolic event from critical stenosis in the SFA. The patient was found to have embolus to the popliteal and tibial vessel. The patient is status post 48-hour thrombolytic therapy and was brought back today for followup angiogram. Indications, benefits, and risks of the procedure were explained to the patient, patient understands and informed consent was obtained. OPERATIVE PROCEDURE: The patient was identified and brought to the Surgical Nurse. After adequate sedation was obtained, the patient was prepped and draped in the usual sterile fashion in the supine position over the entire right lower abdomen and bilateral groins, including the catheter complex. At this time, left lower extremity angiogram was performed via catheter and sheath. At this time, we noted there was still stenosis noted in the mid SFA, approximately 60% stenosis x2 sites. Anterior tibial artery continued to be occluded. There was 80% stenosis in the proximal peroneal artery and 60% stenosis in the proximal PT. Again, there was no flow past the ankle due to occlusion of the PT and peroneal artery. There was only collateral flow down to the foot. At this time, decision was made to intervene on the SFA lesion. The patient was given 7000 units of systemic heparin. After waiting for 5 minutes, a 6 mm Spider wire was deployed in the left popliteal artery. At this time, left SFA and popliteal artery were atherectomized using [employer]Hawk LS in multiple quadrants over the 2 lesions. Large amount of plaque was extracted and removed. After this was completed, angiogram was performed and revealed significant reduction in plaque burden. At this time, the SFA and popliteal artery were angioplastied with 6 x 250 mm drug-coated balloon to prolong the patency. Balloon was inflated to 8 MALACHI and pressure was held for 3 minutes. Completion angiogram revealed good resolution of stenosis. However, at this time, we noted there appeared to be embolization to the popliteal artery with minimal flow to the tibial vessel. At this time, catheter and wire was placed in the popliteal artery and secondary suction thrombectomy was performed with 6-Bermudian guide catheter. There were some small specks of thrombus and embolus extracted. After this was completed, angiogram was performed and revealed better flow to the TPT and PT. However, PT and peroneal artery were found to have stenosis, at both sites at the origins. At this time, the left PT was angioplastied with 2.5 x 200 mm balloon, followed by 3 x 200 mm balloon. Balloon was inflated to 10 MALACHI and pressure was held for 2 minutes. After this was completed, catheter was disengaged and engaged in the left peroneal artery. Peroneal artery was angioplastied with a 2.5 x 200 mm balloon, followed by 3 x 200 mm balloon. Balloon was again inflated to 10 MALACHI and pressure was held for 3 minutes. Completion angiogram revealed improved flow to the tibial vessel; however, again, there is no complete continuous flow to the foot due to the distal PT and peroneal occlusion. Again, due to the patient's poor cardiac output and low EF, there was again very slow flow. After this was completed, we determined that this was the best that this will be and decision was made to complete the procedure. All catheters, wires, and sheaths were removed. The right common femoral artery access site was then closed with a Perclose device. Good hemostasis was achieved. Patient tolerated the procedure well and was transferred back to the Recovery Room in stable condition RADIOGRAPHIC INTERPRETATION: Left lower extremity angiogram with runoff revealed patent common femoral artery and profunda. The mid SFA was found to have stenosis of approximately 60%, as well as distal SFA. AT continued to be occluded. There was 80% stenosis in the proximal peroneal artery and 60% proximal PT. Both PT and peroneal artery were occluded in the mid calf with collateralization to the foot. CATHETER-BASED INTERVENTION: After atherectomy of the SFA with a Designqwest Platformsk LS device and angioplasty with 6 x 250 mm drug-coated balloon, there was resolution of 60% stenosis to less than 10% residual stenosis. After angioplasty of the PT with 2.5 x 200 mm balloon, followed by 3 x 200 mm balloon, there was resolution of 60% stenosis to less than 10% residual stenosis. After angioplasty of the peroneal artery with 2.5 x 200 mm balloon, followed by 3 x 200 mm balloon, there was resolution of 80% stenosis to less than 10% residual stenosis; however, there is still no direct flow down to the foot due to the distal occlusion. There is, however, a large amount of collateral down to the foot. Again, due to the patient's poor EF, there was very slow flow noted. The patient will need to be anticoagulated for optimal healing. us Vishnu Penn MD IMG IR ORDERABLES Final Resul t * IR REVAS FEM POP ART UNILAT W HORSE STUD WORKER (12/28/2024 6:07 PM EDT) Anatomical Region Laterality Modality Interventional R adiology Impressions 01/04/2025 12:13 AM EDT : Technically successful left popliteal and TPT suction thrombectomy with a 6-Bermudian guide catheter with removal of mural thrombus. Technically successful left PT angioplasty with 2.5 x 200 balloon with resolution of 90% stenosis to less than 10% residual stenosis. Technically successful left SFA angioplasty with 4 x 40 mm balloon with resolution of 99% stenosis to less than 10% residual stenosis. Technically successful placement of a 40 cm Cragg-Ann catheter in the left SFA proximally and popliteal artery distally for continuation of thrombolytic therapy. PLAN: The patient be brought back in 24 hours for follow-up angiogram. TID: [id number] Narrative 01/04/2025 12:13 AM EDT DATE OF PROCEDURE: 12/28/2024 PREOPERATIVE DIAGNOSIS: Left lower extremity PAD (peripheral artery disease) with nonhealing ulceration. POSTOPERATIVE DIAGNOSIS: Left lower extremity PAD (peripheral artery disease) with nonhealing ulceration. PROCEDURES: Left lower extremity angiogram via catheter and sheath. Left popliteal artery and TPT suction thrombectomy with 6-Bermudian guide catheter. Left PT angioplasty with 2.5 x 200 mm balloon. Left SFA angioplasty with 4 x 40 mm balloon. Completion angiogram. 40 cm Cragg-Ann catheter placed in the left popliteal artery distally and SFA proximally. Continuation of thrombolytic therapy. SURGEON: Vishnu Penn MD ANESTHESIA: Local with sedation. SEDATION TIME: 26 minutes. SEDATION AGENT: Versed and fentanyl. CONTRAST USED: 42 mL. FLUOROSCOPY: 7.4 minutes, 120 mGy. SPECIMENS: Thrombus. DRAINS: None. COMPLICATIONS: None. DISPOSITION: Patient stable to recovery room. HISTORY: The patient is a 59-year-old female with a history of lower extremity peripheral arterial disease with nonhealing ulceration. The patient was found to have critical stenosis in the SFA with embolic event to the popliteal and tibial vessel. The patient underwent 24-hour thrombolytic therapy and was brought back today for follow-up angiogram. Indications, benefits, and risks were explained to the patient. Patient understands and informed consent was obtained. PROCEDURE: The patient was identified and brought to the Surgical Nurse. After adequate sedation was obtained, the patient was prepped and draped in the usual sterile fashion over the entire left lower abdomen and groin including the catheter complex. At this time, a left lower extremity angiogram was performed via catheter and sheath. At this time, we noted that there was improved flow into the popliteal and tibial vessel. However, we noted there is a floating thrombus in the popliteal artery as well as TPT. The posterior tibial artery was found to have some flow, but found to be occluded at the ankle. Decision was made to perform suction thrombectomy to remove some of this thrombus. The patient was given 5000 units of heparin. After waiting 5 minutes, the left popliteal artery and TPT were suction thrombectomized using 6-Bermudian guide catheter with multiple pulls. Thrombus was removed. Angiogram was performed and revealed there was stenosis in the left PT. At this time, the left PT was angioplastied with a 2.5 x 200 mm balloon. Balloon was inflated to 10 MALACHI and pressure was held for 2 minutes. Completion angiogram revealed good resolution of proximal stenosis of 90% to less than 10% residual stenosis. Attention was turned to the mid SFA stenosis, which was causing embolization. This was approximately 99% stenosis. This was reducing the flow distally. At this time, the SFA was angioplastied with a 4 x 40 mm balloon. Balloon was inflated to 10 MALACHI and pressure was held for 2 minutes. Completion angiogram revealed good resolution of stenosis with less than 10% residual stenosis. There was now better flow down to at the tibial vessel. However, due to the fact there is still some thrombus noted in the peroneal and posterior tibial arteries, the decision was made to continue thrombolytic therapy for another 24 hours. A 40 mm AcceloWeb-Ann catheter was placed in the left popliteal distally and the SFA proximally with tPA continued at 1 mg/hr. Catheter was secured. The patient was transferred back to the recovery room in stable condition. RADIOGRAPHIC INTERPRETATION: Left lower extremity angiogram with runoff revealed patent common femoral artery and profunda. There was a severe stenosis in the mid SFA of 99% stenosis. The popliteal artery and TPT were found to have patent flow, but there is floating thrombus noted with mural thrombus. 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 PT origin was found to have 90% stenosis. Distal PT was occluded with collateral flow down to the foot. Peroneal artery was found to be patent, but small with occlusion of at the ankle down to the foot. CATHETER-BASED INTERVENTION: After successful thrombectomy of TPT and popliteal artery with a 6-Bermudian guide catheter, there was a significant reduction in the floating thrombus and mural thrombosis of the wall. However, there was slow flow to the PT, which was angioplastied with 2.5 x 200 mm balloon. This resulted in resolution of 90% stenosis to less than 10% residual stenosis. After angioplasty of the SFA with 4 x 40 mm balloon, there was resolution of 99% stenosis to less than 10% residual stenosis. There is better flow down to at tibial vessel. However, due to thrombus distal, we elected to continue thrombolytic for another 24 hours. A 40 cm Cragg- Ann catheter was placed in the popliteal distally and SFA proximally for thrombolytic therapy. us Vishnu Penn MD IMG IR ORDERABLES Final Resul t * IR TRANS ART OR PAO FOR THROMB TREAT SUBSQ DAY FU CATH CONT INJ (12/28/2024 6:07 PM EDT) Anatomical Region Laterality Modality Interventional R adiology Impressions 01/04/2025 12:13 AM EDT : Technically successful left popliteal and TPT suction thrombectomy with a 6-Bermudian guide catheter with removal of mural thrombus. Technically successful left PT angioplasty with 2.5 x 200 balloon with resolution of 90% stenosis to less than 10% residual stenosis. Technically successful left SFA angioplasty with 4 x 40 mm balloon with resolution of 99% stenosis to less than 10% residual stenosis. Technically successful placement of a 40 cm Cragg-Ann catheter in the left SFA proximally and popliteal artery distally for continuation of thrombolytic therapy. PLAN: The patient be brought back in 24 hours for follow-up angiogram. TID: [id number] Narrative 01/04/2025 12:13 AM EDT DATE OF PROCEDURE: 12/28/2024 PREOPERATIVE DIAGNOSIS: Left lower extremity PAD (peripheral artery disease) with nonhealing ulceration. POSTOPERATIVE DIAGNOSIS: Left lower extremity PAD (peripheral artery disease) with nonhealing ulceration. PROCEDURES: Left lower extremity angiogram via catheter and sheath. Left popliteal artery and TPT suction thrombectomy with 6-Bermudian guide catheter. Left PT angioplasty with 2.5 x 200 mm balloon. Left SFA angioplasty with 4 x 40 mm balloon. Completion angiogram. 40 cm Cragg-Ann catheter placed in the left popliteal artery distally and SFA proximally. Continuation of thrombolytic therapy. SURGEON: Vishnu Penn MD ANESTHESIA: Local with sedation. SEDATION TIME: 26 minutes. SEDATION AGENT: Versed and fentanyl. CONTRAST USED: 42 mL. FLUOROSCOPY: 7.4 minutes, 120 mGy. SPECIMENS: Thrombus. DRAINS: None. COMPLICATIONS: None. DISPOSITION: Patient stable to recovery room. HISTORY: The patient is a 59-year-old female with a history of lower extremity peripheral arterial disease with nonhealing ulceration. The patient was found to have critical stenosis in the SFA with embolic event to the popliteal and tibial vessel. The patient underwent 24-hour thrombolytic therapy and was brought back today for follow-up angiogram. Indications, benefits, and risks were explained to the patient. Patient understands and informed consent was obtained. PROCEDURE: The patient was identified and brought to the Surgical Nurse. After adequate sedation was obtained, the patient was prepped and draped in the usual sterile fashion over the entire left lower abdomen and groin including the catheter complex. At this time, a left lower extremity angiogram was performed via catheter and sheath. At this time, we noted that there was improved flow into the popliteal and tibial vessel. However, we noted there is a floating thrombus in the popliteal artery as well as TPT. The posterior tibial artery was found to have some flow, but found to be occluded at the ankle. Decision was made to perform suction thrombectomy to remove some of this thrombus. The patient was given 5000 units of heparin. After waiting 5 minutes, the left popliteal artery and TPT were suction thrombectomized using 6-Bermudian guide catheter with multiple pulls. Thrombus was removed. Angiogram was performed and revealed there was stenosis in the left PT. At this time, the left PT was angioplastied with a 2.5 x 200 mm balloon. Balloon was inflated to 10 MALACHI and pressure was held for 2 minutes. Completion angiogram revealed good resolution of proximal stenosis of 90% to less than 10% residual stenosis. Attention was turned to the mid SFA stenosis, which was causing embolization. This was approximately 99% stenosis. This was reducing the flow distally. At this time, the SFA was angioplastied with a 4 x 40 mm balloon. Balloon was inflated to 10 MALACHI and pressure was held for 2 minutes. Completion angiogram revealed good resolution of stenosis with less than 10% residual stenosis. There was now better flow down to at the tibial vessel. However, due to the fact there is still some thrombus noted in the peroneal and posterior tibial arteries, the decision was made to continue thrombolytic therapy for another 24 hours. A 40 mm Cragg-Ann catheter was placed in the left popliteal distally and the SFA proximally with tPA continued at 1 mg/hr. Catheter was secured. The patient was transferred back to the recovery room in stable condition. RADIOGRAPHIC INTERPRETATION: Left lower extremity angiogram with runoff revealed patent common femoral artery and profunda. There was a severe stenosis in the mid SFA of 99% stenosis. The popliteal artery and TPT were found to have patent flow, but there is floating thrombus noted with mural thrombus. 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 PT origin was found to have 90% stenosis. Distal PT was occluded with collateral flow down to the foot. Peroneal artery was found to be patent, but small with occlusion of at the ankle down to the foot. CATHETER-BASED INTERVENTION: After successful thrombectomy of TPT and popliteal artery with a 6-Bermudian guide catheter, there was a significant reduction in the floating thrombus and mural thrombosis of the wall. However, there was slow flow to the PT, which was angioplastied with 2.5 x 200 mm balloon. This resulted in resolution of 90% stenosis to less than 10% residual stenosis. After angioplasty of the SFA with 4 x 40 mm balloon, there was resolution of 99% stenosis to less than 10% residual stenosis. There is better flow down to at tibial vessel. However, due to thrombus distal, we elected to continue thrombolytic for another 24 hours. A 40 cm Cragg- Ann catheter was placed in the popliteal distally and SFA proximally for thrombolytic therapy. Vishnu Penn MD [facility] IR ORDERABLES Final Resul t * (ABNORMAL) PARTIAL THROMBOPLASTIN TIME (12/28/2024 4:08 AM EDT) Only the most recent of2 resultswithin the time period is included. [facility] PTT 72.2(H) 27.9 - 38.7 second(s) 12/28/2024 4:50 AM EDT [facility] Comment: Therapeutic range for unfractionated heparin: 50.1 - 98.7 seconds Therapeutic range for direct thrombin inhibitors: Argatroban is 1.5 to 3 times the aPTT baseline. Lepirudin is 1.5 to 2 times the aPTT baseline. The aPTT should not exceed 100 seconds. The dosage of Argatroban should be decreased in patients with hepatic impairment. The dosage of Lepirudin should be decreased in renal insufficiency. Blood VENOUS BLOOD / Unknown Venipuncture / Unknown 12/28/2024 4:08 AM EDT 12/28/2024 4:33 AM EDT Vishnu Penn MD HEMATOLOGY ORDERABLES Final R esult Performing Organization Address [facility] de Phone Number [facility] [address] [place] [address] , [address] [id number] * PT / INR (12/28/2024 4:08 AM EDT) Only the most recent of3 resultswithin the time period is included. PT 12.4 10.5 - 13.6 second(s) 12/28/2024 4:50 AM EDT [facility] INR 1.05 0.89 - 1.16 (ratio) 12/28/2024 4:50 AM EDT [facility] Comment: Level of Therapy Indications Target INR Range Standard Dose Treatment and prophylaxis of venous 2.0 - 3.0 thrombosis, pulmonary embolism High Dose High risk patients with mechanical 2.5 - 3.5 heart valves Blood VENOUS BLOOD / Unknown Venipuncture / Unknown 12/28/2024 4:08 AM EDT 12/28/2024 4:33 AM EDT Vishnu Penn MD HEMATOLOGY ORDERABLES Final R esult Performing Organization Address [facility] de Phone Number [facility] [address] [place] [address] , [place] [address] * CBC WITH DIFF (12/28/2024 4:08 AM EDT) Only the most recent of2 resultswithin the time period is included. WBC 8.8 3.7 - 10.3 x10(3)/mcL 12/28/2024 4:46 AM EDT [facility] RBC 4.51 3.90 - 5.20 x10(6)/mcL 12/28/2024 4:46 AM EDT [facility] Hgb 13.5 11.2 - 15.7 g/dL 12/28/2024 4:46 AM EDT [facility] Hct 40.1 34.0 - 45.0 % 12/28/2024 4:46 AM EDT [facility] MCV 88.9 80.0 - 100.0 fL 12/28/2024 4:46 AM EDT [facility] MCH 29.9 26.0 - 34.0 pg 12/28/2024 4:46 AM EDT [facility] MCHC 33.7 30.7 - 35.5 g/dL 12/28/2024 4:46 AM EDT [facility] RDW 13.3 <=14.9 % 12/28/2024 4:46 AM EDT [facility] Platelet 203 155 - 369 x10(3)/mcL 12/28/2024 4:46 AM EDT [facility] MPV 10.5 8.8 - 12.5 fL 12/28/2024 4:46 AM EDT [facility] Neut Percent 60.2 % 12/28/2024 4:46 AM EDT [facility] Comment:Neutrophils equals s egs plus bands Imm Gran% 0.3 % 12/28/2024 4:46 AM EDT [facility] Comment:Automated count of m etamyelocytes, myelocytes and promyelocytes. Lymph Percent 29.5 % 12/28/2024 4:46 AM EDT [facility] [place] Percent 7.5 % 12/28/2024 4:46 AM EDT [facility] Eos Percent 1.9 % 12/28/2024 4:46 AM EDT [facility] Baso Percent 0.6 % 12/28/2024 4:46 AM EDT [facility] Neut # 5.3 1.6 - 6.1 x10(3)/mcL 12/28/2024 4:46 AM EDT [facility] Comment:Neutrophils equals s egs plus bands IMMGRAN# 0.0 0.0 - 0.1 x10(3)/mcL 12/28/2024 4:46 AM EDT [facility] Comment:Automated count of m etamyelocytes, myelocytes and promyelocytes. An absolute IG <0.1 is reported as 0.0. Lymph # 2.6 1.2 - 3.9 x10(3)/mcL 12/28/2024 4:46 AM EDT [facility] [place] # 0.7 0.3 - 0.9 x10(3)/mcL 12/28/2024 4:46 AM EDT [facility] [place] Eos# 0.2 0.0 - 0.5 x10(3)/mcL 12/28/2024 4:46 AM EDT [facility] Baso # 0.1 0.0 - 0.1 x10(3)/[facility] 12/28/2024 4:46 AM EDT [facility] Blood VENOUS BLOOD / Unknown Venipuncture / Unknown 12/28/2024 4:08 AM EDT 12/28/2024 4:33 AM EDT us Vishnu Penn MD HEMATOLOGY ORDERABLES Final R esult [facility] [address] [facility] , [place] [address] * IR TRANSCATH ARTERIAL INFUSION THROMBOLYSIS INITIAL TREAT (12/27/2024 11:08 AM EDT) Anatomical Region Laterality Modality Interventional R adiology Impressions 01/04/2025 12:11 AM EDT : Technically successful crossing occluded left popliteal artery and TPT and PT with catheter placed in the PT with initiation of thrombolytic therapy. The patient will be brought back in 24 hours for followup angiogram. TID [id number] Narrative 01/04/2025 12:11 AM EDT ACCESSION NUMBER: [id number]. DATE OF PROCEDURE: 12/27/2024. PREOPERATIVE DIAGNOSIS: Left lower extremity PAD (peripheral arterial disease) with nonhealing ulceration. POSTOPERATIVE DIAGNOSIS: Left lower extremity PAD (peripheral arterial disease) with nonhealing ulceration. PROCEDURES: Access of right common femoral artery with 5-Bermudian sheath with ultrasound guidance. Omni catheter placed in the aorta with aortogram with runoff. Omni catheter placed in the aortic bifurcation with aortoiliac angiogram with runoff. Crossing bifurcation with catheter placed in the left common femoral artery. Left lower extremity angiogram with runoff. Right lower extremity angiogram with runoff. 7-Bermudian Destination sheath in the left common femoral artery. Catheter placed in the left popliteal artery with additional tibial angiogram with runoff. Crossing the occluded left popliteal artery and TPT with catheter placed in the left PT with angiogram with runoff. 40 cm Cragg-Ann catheter in the left PT distally and SFA proximally. Thrombolysis. SURGEON: Vishnu Penn MD. ANESTHESIA: Local with sedation. SEDATION TIME: 39 minutes. SEDATION AGENT: Versed and fentanyl. CONTRAST USED: 68 mL. FLUORO TIME: 9.9 minutes, 512 mGy. SPECIMENS: None. DRAINS: None. DISPOSITION: Patient stable to Recovery Room. INDICATIONS FOR PROCEDURE: The patient is a 59-year-old female with a history of lower extremity PAD with lower extremity intervention in the past. The patient was found to have worsening left lower extremity ulceration with drainage. The patient underwent evaluation with arterial study and was found to have possible popliteal occlusive disease. The patient was offered angiogram and possible intervention. Indications, benefits, and risks of the procedure were explained to the patient, patient understands and informed consent was obtained OPERATIVE PROCEDURE: The patient was identified and brought to the Surgical Nurse. After adequate sedation was obtained, the patient was prepped and draped in the usual sterile fashion in supine position over the entire right lower abdomen and groin. The right common femoral artery was accessed with a large bore needle with ultrasound guidance. Through this needle, a wire was inserted and 5-Bermudian sheath was inserted. The right common femoral artery was found to be patent. The tip of the needle was visualized and photograph was taken. At this time, Omni catheter was advanced over a wire and placed in the suprarenal aorta. Aortogram was performed. The catheter was brought down to the aortic bifurcation and aortoiliac angiogram was performed in oblique position. Utilizing catheter and wire, we were able to cross the bifurcation and advance the catheter into the left common femoral artery. Left lower extremity angiogram was performed in stations from the groin down to the foot. At this time,right lower extremity angiogram was performed in stations from the groin down to the foot. At this time, we noted that there was complete occlusion of the popliteal artery and tibial vessel secondary to critical stenosis in the mid SFA with embolic event. The decision was made at this time to intervene on the lesion. The patient was given 5000 units of systemic heparin. After waiting for 5 minutes, the 5-Bermudian sheath was exchanged for a 7-Bermudian Destination sheath placed in the left common femoral artery. Next, catheter was placed in the left popliteal artery and additional tibial angiogram was performed. It appeared there was reconstitution of the vessel posterior tibial artery and peroneal artery just after the bifurcation. The TPT and popliteal artery and anterior tibial artery were completely occluded. At this time, we then proceeded to use a wire and we were able to cross the occluded popliteal artery and advance the catheter in the PT. Angiogram was performed and revealed we were in the true lumen. At this time, a 40 cm AcceloWeb-[place] catheter was selected and placed in the PT posteriorly and SFA proximally. Thrombolytic therapy was initiated at 1 mg/hr. Catheter was secured. The patient was transferred back to the Recovery Room in stable condition. RADIOGRAPHIC INTERPRETATION: Aortogram with runoff revealed patent renal arteries bilaterally. The mesenteric artery appeared to be patent. There was patent aorta without aneurysmal changes. There were patent bilateral common iliac artery stents noted. There was 30% stenosis in the proximal right common iliac stent noted. The hypogastric vessels and external iliacs were found to be widely patent. Right lower extremity angiogram with runoff: The right common femoral artery was patent with patent SFA, profunda, and popliteal artery with diffuse disease. This is not flow-limiting. There were patent AT and peroneal artery. There was slow flow noted. Posterior tibial artery was completely occluded. Left lower extremity angiogram with runoff: Left common femoral artery was patent with patent profunda. SFA was patent proximally with diffuse disease. There was critical stenosis with 99% stenosis in the mid SFA with extremely slow flow distal to that. There appeared to be embolic phenomena with occluded above-knee and behind-knee popliteal artery with no tibial vessel visualized. With catheter placed in the distal popliteal artery, additional tibial angiogram was performed and revealed that there was still reconstitution of the posterior tibial artery and peroneal artery with minimal flow to the foot. CATHETER-BASED INTERVENTION: After crossing occluded left popliteal artery and TPT and entering into the PT, angiogram revealed we were in the true lumen. A 40 cm Cragg-Ann catheter was then placed in the PT distally and SFA proximally for thrombolytic therapy. us Vishnu Penn MD G IR ORDERABLES Final Resul t * IR ULTRASOUND GUIDED VASCULAR ACCESS (12/27/2024 11:08 AM EDT) Anatomical Region Laterality Modality Interventional R adiology Impressions 01/04/2025 12:11 AM EDT : Technically successful crossing occluded left popliteal artery and TPT and PT with catheter placed in the PT with initiation of thrombolytic therapy. The patient will be brought back in 24 hours for followup angiogram. TID [id number] Narrative 01/04/2025 12:11 AM EDT ACCESSION NUMBER: [id number]. DATE OF PROCEDURE: 12/27/2024. PREOPERATIVE DIAGNOSIS: Left lower extremity PAD (peripheral arterial disease) with nonhealing ulceration. POSTOPERATIVE DIAGNOSIS: Left lower extremity PAD (peripheral arterial disease) with nonhealing ulceration. PROCEDURES: Access of right common femoral artery with 5-Bermudian sheath with ultrasound guidance. Omni catheter placed in the aorta with aortogram with runoff. Omni catheter placed in the aortic bifurcation with aortoiliac angiogram with runoff. Crossing bifurcation with catheter placed in the left common femoral artery. Left lower extremity angiogram with runoff. Right lower extremity angiogram with runoff. 7-Bermudian Destination sheath in the left common femoral artery. Catheter placed in the left popliteal artery with additional tibial angiogram with runoff. Crossing the occluded left popliteal artery and TPT with catheter placed in the left PT with angiogram with runoff. 40 cm Cragg-Ann catheter in the left PT distally and SFA proximally. Thrombolysis. SURGEON: Vishnu Penn MD. ANESTHESIA: Local with sedation. SEDATION TIME: 39 minutes. SEDATION AGENT: Versed and fentanyl. CONTRAST USED: 68 mL. FLUORO TIME: 9.9 minutes, 512 mGy. SPECIMENS: None. DRAINS: None. DISPOSITION: Patient stable to Recovery Room. INDICATIONS FOR PROCEDURE: The patient is a 59-year-old female with a history of lower extremity PAD with lower extremity intervention in the past. The patient was found to have worsening left lower extremity ulceration with drainage. The patient underwent evaluation with arterial study and was found to have possible popliteal occlusive disease. The patient was offered angiogram and possible intervention. Indications, benefits, and risks of the procedure were explained to the patient, patient understands and informed consent was obtained OPERATIVE PROCEDURE: The patient was identified and brought to the Surgical Nurse. After adequate sedation was obtained, the patient was prepped and draped in the usual sterile fashion in supine position over the entire right lower abdomen and groin. The right common femoral artery was accessed with a large bore needle with ultrasound guidance. Through this needle, a wire was inserted and 5-Bermudian sheath was inserted. The right common femoral artery was found to be patent. The tip of the needle was visualized and photograph was taken. At this time, Omni catheter was advanced over a wire and placed in the suprarenal aorta. Aortogram was performed. The catheter was brought down to the aortic bifurcation and aortoiliac angiogram was performed in oblique position. Utilizing catheter and wire, we were able to cross the bifurcation and advance the catheter into the left common femoral artery. Left lower extremity angiogram was performed in stations from the groin down to the foot. At this time,right lower extremity angiogram was performed in stations from the groin down to the foot. At this time, we noted that there was complete occlusion of the popliteal artery and tibial vessel secondary to critical stenosis in the mid SFA with embolic event. The decision was made at this time to intervene on the lesion. The patient was given 5000 units of systemic heparin. After waiting for 5 minutes, the 5-Bermudian sheath was exchanged for a 7-Bermudian Destination sheath placed in the left common femoral artery. Next, catheter was placed in the left popliteal artery and additional tibial angiogram was performed. It appeared there was reconstitution of the vessel posterior tibial artery and peroneal artery just after the bifurcation. The TPT and popliteal artery and anterior tibial artery were completely occluded. At this time, we then proceeded to use a wire and we were able to cross the occluded popliteal artery and advance the catheter in the PT. Angiogram was performed and revealed we were in the true lumen. At this time, a 40 cm Cragg-Ann catheter was selected and placed in the PT posteriorly and SFA proximally. Thrombolytic therapy was initiated at 1 mg/hr. Catheter was secured. The patient was transferred back to the Recovery Room in stable condition. RADIOGRAPHIC INTERPRETATION: Aortogram with runoff revealed patent renal arteries bilaterally. The mesenteric artery appeared to be patent. There was patent aorta without aneurysmal changes. There were patent bilateral common iliac artery stents noted. There was 30% stenosis in the proximal right common iliac stent noted. The hypogastric vessels and external iliacs were found to be widely patent. Right lower extremity angiogram with runoff: The right common femoral artery was patent with patent SFA, profunda, and popliteal artery with diffuse disease. This is not flow-limiting. There were patent AT and peroneal artery. There was slow flow noted. Posterior tibial artery was completely occluded. Left lower extremity angiogram with runoff: Left common femoral artery was patent with patent profunda. SFA was patent proximally with diffuse disease. There was critical stenosis with 99% stenosis in the mid SFA with extremely slow flow distal to that. There appeared to be embolic phenomena with occluded above-knee and behind-knee popliteal artery with no tibial vessel visualized. With catheter placed in the distal popliteal artery, additional tibial angiogram was performed and revealed that there was still reconstitution of the posterior tibial artery and peroneal artery with minimal flow to the foot. CATHETER-BASED INTERVENTION: After crossing occluded left popliteal artery and TPT and entering into the PT, angiogram revealed we were in the true lumen. A 40 cm Cragg-Ann catheter was then placed in the PT distally and SFA proximally for thrombolytic therapy. us Vishnu Penn MD IMG IR ORDERABLES Final Resul t * IR ANGIOGRAM FEMORAL ARTERIO SHIFT (12/27/2024 11:08 AM EDT) Anatomical Region Laterality Modality Interventional R adiology Impressions 01/04/2025 12:11 AM EDT : Technically successful crossing occluded left popliteal artery and TPT and PT with catheter placed in the PT with initiation of thrombolytic therapy. The patient will be brought back in 24 hours for followup angiogram. TID [id number] Narrative 01/04/2025 12:11 AM EDT ACCESSION NUMBER: [id number]. DATE OF PROCEDURE: 12/27/2024. PREOPERATIVE DIAGNOSIS: Left lower extremity PAD (peripheral arterial disease) with nonhealing ulceration. POSTOPERATIVE DIAGNOSIS: Left lower extremity PAD (peripheral arterial disease) with nonhealing ulceration. PROCEDURES: Access of right common femoral artery with 5-Bermudian sheath with ultrasound guidance. Omni catheter placed in the aorta with aortogram with runoff. Omni catheter placed in the aortic bifurcation with aortoiliac angiogram with runoff. Crossing bifurcation with catheter placed in the left common femoral artery. Left lower extremity angiogram with runoff. Right lower extremity angiogram with runoff. 7-Bermudian Destination sheath in the left common femoral artery. Catheter placed in the left popliteal artery with additional tibial angiogram with runoff. Crossing the occluded left popliteal artery and TPT with catheter placed in the left PT with angiogram with runoff. 40 cm Cragg-Ann catheter in the left PT distally and SFA proximally. Thrombolysis. SURGEON: Vishnu Penn MD. ANESTHESIA: Local with sedation. SEDATION TIME: 39 minutes. SEDATION AGENT: Versed and fentanyl. CONTRAST USED: 68 mL. FLUORO TIME: 9.9 minutes, 512 mGy. SPECIMENS: None. DRAINS: None. DISPOSITION: Patient stable to Recovery Room. INDICATIONS FOR PROCEDURE: The patient is a 59-year-old female with a history of lower extremity PAD with lower extremity intervention in the past. The patient was found to have worsening left lower extremity ulceration with drainage. The patient underwent evaluation with arterial study and was found to have possible popliteal occlusive disease. The patient was offered angiogram and possible intervention. Indications, benefits, and risks of the procedure were explained to the patient, patient understands and informed consent was obtained OPERATIVE PROCEDURE: The patient was identified and brought to the Surgical Nurse. After adequate sedation was obtained, the patient was prepped and draped in the usual sterile fashion in supine position over the entire right lower abdomen and groin. The right common femoral artery was accessed with a large bore needle with ultrasound guidance. Through this needle, a wire was inserted and 5-Bermudian sheath was inserted. The right common femoral artery was found to be patent. The tip of the needle was visualized and photograph was taken. At this time, Omni catheter was advanced over a wire and placed in the suprarenal aorta. Aortogram was performed. The catheter was brought down to the aortic bifurcation and aortoiliac angiogram was performed in oblique position. Utilizing catheter and wire, we were able to cross the bifurcation and advance the catheter into the left common femoral artery. Left lower extremity angiogram was performed in stations from the groin down to the foot. At this time,right lower extremity angiogram was performed in stations from the groin down to the foot. At this time, we noted that there was complete occlusion of the popliteal artery and tibial vessel secondary to critical stenosis in the mid SFA with embolic event. The decision was made at this time to intervene on the lesion. The patient was given 5000 units of systemic heparin. After waiting for 5 minutes, the 5-Bermudian sheath was exchanged for a 7-Bermudian Destination sheath placed in the left common femoral artery. Next, catheter was placed in the left popliteal artery and additional tibial angiogram was performed. It appeared there was reconstitution of the vessel posterior tibial artery and peroneal artery just after the bifurcation. The TPT and popliteal artery and anterior tibial artery were completely occluded. At this time, we then proceeded to use a wire and we were able to cross the occluded popliteal artery and advance the catheter in the PT. Angiogram was performed and revealed we were in the true lumen. At this time, a 40 cm AcceloWeb-Ann catheter was selected and placed in the PT posteriorly and SFA proximally. Thrombolytic therapy was initiated at 1 mg/hr. Catheter was secured. The patient was transferred back to the Recovery Room in stable condition. RADIOGRAPHIC INTERPRETATION: Aortogram with runoff revealed patent renal arteries bilaterally. The mesenteric artery appeared to be patent. There was patent aorta without aneurysmal changes. There were patent bilateral common iliac artery stents noted. There was 30% stenosis in the proximal right common iliac stent noted. The hypogastric vessels and external iliacs were found to be widely patent. Right lower extremity angiogram with runoff: The right common femoral artery was patent with patent SFA, profunda, and popliteal artery with diffuse disease. This is not flow-limiting. There were patent AT and peroneal artery. There was slow flow noted. Posterior tibial artery was completely occluded. Left lower extremity angiogram with runoff: Left common femoral artery was patent with patent profunda. SFA was patent proximally with diffuse disease. There was critical stenosis with 99% stenosis in the mid SFA with extremely slow flow distal to that. There appeared to be embolic phenomena with occluded above-knee and behind-knee popliteal artery with no tibial vessel visualized. With catheter placed in the distal popliteal artery, additional tibial angiogram was performed and revealed that there was still reconstitution of the posterior tibial artery and peroneal artery with minimal flow to the foot. CATHETER-BASED INTERVENTION: After crossing occluded left popliteal artery and TPT and entering into the PT, angiogram revealed we were in the true lumen. A 40 cm Cragg-Ann catheter was then placed in the PT distally and SFA proximally for thrombolytic therapy. us Vishnu Penn MD IMG IR ORDERABLES Final Resul t * IR ABDOMINAL AORTOGRAM SERIALOGRAM (12/27/2024 11:08 AM EDT) Anatomical Region Laterality Modality Interventional R adiology Impressions 01/04/2025 12:11 AM EDT : Technically successful crossing occluded left popliteal artery and TPT and PT with catheter placed in the PT with initiation of thrombolytic therapy. The patient will be brought back in 24 hours for followup angiogram. TID [id number] Narrative 01/04/2025 12:11 AM EDT ACCESSION NUMBER: [id number]. DATE OF PROCEDURE: 12/27/2024. PREOPERATIVE DIAGNOSIS: Left lower extremity PAD (peripheral arterial disease) with nonhealing ulceration. POSTOPERATIVE DIAGNOSIS: Left lower extremity PAD (peripheral arterial disease) with nonhealing ulceration. PROCEDURES: Access of right common femoral artery with 5-Bermudian sheath with ultrasound guidance. Omni catheter placed in the aorta with aortogram with runoff. Omni catheter placed in the aortic bifurcation with aortoiliac angiogram with runoff. Crossing bifurcation with catheter placed in the left common femoral artery. Left lower extremity angiogram with runoff. Right lower extremity angiogram with runoff. 7-Bermudian Destination sheath in the left common femoral artery. Catheter placed in the left popliteal artery with additional tibial angiogram with runoff. Crossing the occluded left popliteal artery and TPT with catheter placed in the left PT with angiogram with runoff. 40 cm Cragg-Ann catheter in the left PT distally and SFA proximally. Thrombolysis. SURGEON: Vishnu Penn MD. ANESTHESIA: Local with sedation. SEDATION TIME: 39 minutes. SEDATION AGENT: Versed and fentanyl. CONTRAST USED: 68 mL. FLUORO TIME: 9.9 minutes, 512 mGy. SPECIMENS: None. DRAINS: None. DISPOSITION: Patient stable to Recovery Room. INDICATIONS FOR PROCEDURE: The patient is a 59-year-old female with a history of lower extremity PAD with lower extremity intervention in the past. The patient was found to have worsening left lower extremity ulceration with drainage. The patient underwent evaluation with arterial study and was found to have possible popliteal occlusive disease. The patient was offered angiogram and possible intervention. Indications, benefits, and risks of the procedure were explained to the patient, patient understands and informed consent was obtained OPERATIVE PROCEDURE: The patient was identified and brought to the Surgical Nurse. After adequate sedation was obtained, the patient was prepped and draped in the usual sterile fashion in supine position over the entire right lower abdomen and groin. The right common femoral artery was accessed with a large bore needle with ultrasound guidance. Through this needle, a wire was inserted and 5-Bermudian sheath was inserted. The right common femoral artery was found to be patent. The tip of the needle was visualized and photograph was taken. At this time, Omni catheter was advanced over a wire and placed in the suprarenal aorta. Aortogram was performed. The catheter was brought down to the aortic bifurcation and aortoiliac angiogram was performed in oblique position. Utilizing catheter and wire, we were able to cross the bifurcation and advance the catheter into the left common femoral artery. Left lower extremity angiogram was performed in stations from the groin down to the foot. At this time,right lower extremity angiogram was performed in stations from the groin down to the foot. At this time, we noted that there was complete occlusion of the popliteal artery and tibial vessel secondary to critical stenosis in the mid SFA with embolic event. The decision was made at this time to intervene on the lesion. The patient was given 5000 units of systemic heparin. After waiting for 5 minutes, the 5-Bermudian sheath was exchanged for a 7-Bermudian Destination sheath placed in the left common femoral artery. Next, catheter was placed in the left popliteal artery and additional tibial angiogram was performed. It appeared there was reconstitution of the vessel posterior tibial artery and peroneal artery just after the bifurcation. The TPT and popliteal artery and anterior tibial artery were completely occluded. At this time, we then proceeded to use a wire and we were able to cross the occluded popliteal artery and advance the catheter in the PT. Angiogram was performed and revealed we were in the true lumen. At this time, a 40 cm AcceloWeb-Ann catheter was selected and placed in the PT posteriorly and SFA proximally. Thrombolytic therapy was initiated at 1 mg/hr. Catheter was secured. The patient was transferred back to the Recovery Room in stable condition. RADIOGRAPHIC INTERPRETATION: Aortogram with runoff revealed patent renal arteries bilaterally. The mesenteric artery appeared to be patent. There was patent aorta without aneurysmal changes. There were patent bilateral common iliac artery stents noted. There was 30% stenosis in the proximal right common iliac stent noted. The hypogastric vessels and external iliacs were found to be widely patent. Right lower extremity angiogram with runoff: The right common femoral artery was patent with patent SFA, profunda, and popliteal artery with diffuse disease. This is not flow-limiting. There were patent AT and peroneal artery. There was slow flow noted. Posterior tibial artery was completely occluded. Left lower extremity angiogram with runoff: Left common femoral artery was patent with patent profunda. SFA was patent proximally with diffuse disease. There was critical stenosis with 99% stenosis in the mid SFA with extremely slow flow distal to that. There appeared to be embolic phenomena with occluded above-knee and behind-knee popliteal artery with no tibial vessel visualized. With catheter placed in the distal popliteal artery, additional tibial angiogram was performed and revealed that there was still reconstitution of the posterior tibial artery and peroneal artery with minimal flow to the foot. CATHETER-BASED INTERVENTION: After crossing occluded left popliteal artery and TPT and entering into the PT, angiogram revealed we were in the true lumen. A 40 cm Cragg-Ann catheter was then placed in the PT distally and SFA proximally for thrombolytic therapy. us Vishnu Penn MD IMG IR ORDERABLES Final Resul t * BLOOD UREA NITROGEN (12/27/2024 9:23 AM EDT) BUN 18 6 - 20 mg/dL 12/27/2024 9:39 AM EDT [facility] Blood VENOUS BLOOD / Unknown Venipuncture / Unknown 12/27/2024 9:23 AM EDT 12/27/2024 9:23 AM EDT Vishnu Penn MD CHEMISTRY ORDERABLES Final Re sult [facility] [address] [place] [address] * CREATININE (12/27/2024 9:23 AM EDT) Creatinine 0.76 0.51 - 1.30 mg/dL 12/27/2024 9:39 AM EDT [facility] eGFR (CKD-EPIcr 2020) 90 >=60 mL/min/1.7 3 m2 12/27/2024 9:39 AM EDT [facility] Comment:Estimated GFR was ca lculated using the CKD-EPIcr (2020) equation refit without race. The equation is recommended by the [employer] - [place] [employer] Neph[employer] Task Force. Blood VENOUS BLOOD / Unknown Venipuncture / Unknown 12/27/2024 9:23 AM EDT 12/27/2024 9:23 AM EDT us Vishnu Penn MD CHEMISTRY ORDERABLES Final Re sult Performing Organization Address [facility] Co de Phone Number [address] [address] * XR FOOT LEFT AP LATERAL AND OBLIQUE (12/15/2024 3:37 PM EDT) Anatomical Region Laterality Modality Foot Radiographic Yudelka ging 12/15/2024 3:37 PM EDT Impressions 12/15/2024 3:51 PM EDT Some irregularity of the cortical margin of the first and second metatarsals which appears to be a change from the prior study of 2022 therefore osteomyelitis cannot be excluded. - Note: Radiology results need to be interpreted within a comprehensive clinical context. If you have questions about the radiology report, please contact the office of the ordering clinician. Narrative 12/15/2024 3:51 PM EDT XR FOOT LEFT AP LATERAL AND OBLIQUE, 12/15/2024 3:37 PM CLINICAL HISTORY: L97.846-[id number] chronic ulcer of other part of left foot with fat layer exposed (HCC)-ICD-10-CM COMPARISON: 06/06/2023 PROCEDURE COMMENTS: XR FOOT LEFT AP LATERAL AND OBLIQUE FINDINGS: Patient status post prior transmetatarsal amputation. When compared to prior 03/16/2023 and appears be some irregularity of the resected margins of the first and second metatarsals. Therefore osteomyelitis involving these bones cannot be excluded.. Procedure Note Paulo Raya III, MD - 12/15/2024 XR FOOT LEFT AP LATERAL AND OBLIQUE, 12/15/2024 3:37 PM CLINICAL HISTORY: L97.177-[id number] chronic ulcer of other part ofleft foot with fat layer exposed (HCC)-ICD-10-CM COMPARISON: 06/06/2023 PROCEDURE COMMENTS: XR FOOT LEFT AP LATERAL AND OBLIQUE FINDINGS: Patient status post prior transmetatarsal amputation. Whencompared to prior 03/16/2023 and appears be some irregularity of the resected marginsof the first and second metatarsals. Therefore osteomyelitis involving thesebones cannot be excluded.. IMPRESSION: Some irregularity of the cortical margin of the first and second metatarsals which appears to be a change from the prior study of 2022therefore osteomyelitis cannot be excluded. - Note: Radiology results need to be interpreted within a comprehensiveclinical context. If you have questions about the radiology report, please contactthe office of the ordering clinician. Nette Jalloh APRN IMG DIAGNOSTIC IMAGING ORDERABL ES Final Result * [facility] LOWER EXTREMITY VENOUS LEFT (12/15/2024 2:16 PM EDT) Anatomical Region Laterality Modality Vascular, Thigh, Leg Vascular Im aging 12/15/2024 12:5 0 PM EDT Impressions 12/17/2024 10:58 AM EDT Conclusions * No evidence of deep vein thrombosis identified in the left lower extremity. * No evidence of superficial vein thrombosis identified in the left lower extremity. * No evidence of thrombosis is noted in the contralateral right common femoral vein. Narrative Procedure Note Kashif Wong MD - 12/17/2024 IMPRESSION Conclusions * No evidence of deep vein thrombosis identified in the left lower extremity. * No evidence of superficial vein thrombosis identified in the leftlower extremity. * No evidence of thrombosis is noted in the contralateral right common femoral vein. Vishnu Penn MD IMG VASCULAR ORDERABLES Final Result from Last 3 Months Insurance [employer] [place] [place] [employer] [facility] [place] [employer] [facility] [place] Advance Directives For more information, please contact: [phone] * Full Code (Latest Code Status on File) Date Activated Date Inactivated Comments 12/27/2024 10:43 PM 01/01/2025 9:14 PM * Full Code Date Activated Date Inactivated Comments 05/28/2023 10:35 AM 06/11/2023 9:55 PM Care Teams Computer Systems Architect Relationship Specialty Start Date End Date William Hunter MD [facility] [address] [place] [id number] PCP - General Internal Medicine-Adolescent Medicine 05/28/23 González Gotti MD [address] [place] [address] [place] [address] Consulting Physician Internal Medicine - Clinical Cardiac Electrophysiology 04/05/17 Cristi Cleaning MD [address] [place] [address] [place] [address] Physician Internal Medicine-Cardiovascular Disease 04/05/17
--- OUTSIDE RECORDS SUMMARY | 2025-03-14 14:53 | XMS_ITS | Encounter Summary ---
Author Organization Healthcare Address [address] [place] [address] Care Team Providers Care Latex Thread Machine Operator Name Role Phone Fariha Henderson APRN Primary Care Provider [phone] Encounter Details Date Type Department Care Team (Late st Contact Info) Description 02/18/2022 Community [facility] [address] [place] [address] Jabari Goetz MD [address] [facility] [address] [place] [address] PAD (peripheral artery disease) (CMS/HCC) (Primary Dx) Social History Tobacco Use Types Packs/Day Years Used Date Smoking Tobacco: Never Assessed Comments Unknown Sex and Gender Information Value Date Recorded Sex Assigned at Not on file Legal Sex Female 7:27 PM EDT Gender Identity Not on file Sexual Orientation Not on file documented as of this encounter Plan of Treatment Not on file documented as of this encounter Visit Diagnoses Diagnosis PAD (peripheral artery disease) (CMS/HCC)- Primary Unspecified peripheral vascular disease documented in this encounter Care Teams Latex Thread Machine Operator Relationship Specialty Start Date End Date Fariha Henderson APRN [address] [place] [address] PCP - General 02/07/21 documented as of this encounter
--- OUTSIDE RECORDS SUMMARY | 2025-03-14 14:53 | XMS_ITS | Patient Health Record ---
Author Organization [facility] Address [address] [place] [address] Care Team Providers Care Underground Foreman Name Role Phone William Hunter Primary Care Provider Sarah Wing Unavailable [phone] Migration, Provider Unavailable Unavailable Allergies Allergen (clinical drug ingredient) Drug/Non Drug Allergy documented on EMR Reaction Allergy Type Onset Date Status Substance with 2-jnisclc-3-methylg lutaryl-coenzyme A reductase inhibitor mechanism of action (substance) Statins couldnt walk Drug Allergy Active codeine Codeine Unknown Drug Allergy Active hydrocodone HYDROcodone itchy and nausea Drug Allergy Active Medications Medication SIG (Take, Route, Frequency, Duration) Notes Start Date End Date Status Magnesium Gluconate 250 MG 1 tab(s) orally once a day Active Repatha 140 MG/ML subcutaneously every 2 weeks Active Isosorbide Mononitrate ER 120 MG 1 tab(s) orally once a day (in the morning) Active hydroCHLOROthiazide 25 MG 1 tab(s) orally every other day Active RANEXA 1000 MG 1 TAB(S) ORALLY 2 TIMES A DAY *Please review for potential replacement for e-prescription and drug interaction check* Active Jardiance 10 MG 1 tab(s) orally once a day (in the morning) Active Aspirin 81 MG 1 TAB(S) ORALLY ONCE A DAY *Please review and pick correct strength-formula tion from Medispan options. If intended option is not shown, discontinue and re-order from Quick Search* Active hydrOXYzine HCl 25 MG 1 tab(s) orally 2 times a day for 30 days 06/24/2023 Active Nitroglycerin 0.4 MG 1 tab(s) sublingually every 5 minutes prn Active Eliquis 5 mg TAKE ONE TABLET BY MOUTH TWICE DAILY for 30 Active rOPINIRole HCl 0.25 MG 1 tab(s) orally a t bedtime Active amLODIPine Besylate 5 MG 1 tab(s) orally once a day for 30 day(s) Active Gabapentin 300 MG 1 cap(s) orally 2 times a day for 30 day(s) 03/05/2025 Active Plavix 75 MG 1 tab(s) orally once a day Active Pantoprazole Sodium 40 MG 1 tab(s) orally once a day Active Metoprolol Succinate ER 100 MG TAKE 1 AND 1/2 TABLET BY MOUTH TWICE DAILY for 90 days Active Immunizations Vaccine Route Administration Date Status Comme nts Influenza-Fluzone 3+years (NON-MEDICARE) IM Intramuscular 07/17/2016 Administered Influenza-Fluzone 3+years (NON-MEDICARE) IM Intramuscular 07/13/2017 Administered Flublok IM Intramuscular 08/11/2022 Administered Social History Tobacco Use: Social History Observation Description Date Details (start date - stop date) Former Smoker NA - NA Smoking: Question Answer Notes Are you a: former smoker How long has it been since you last smoked? 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) Active confirmed Problem Long-term current use of anticoagulant (811801635) senior care (current) use of anticoagulants (Z79.01) Active confirmed Problem 412152519 Depression with anxiety (F41.8) Active confirmed Problem 494673738 Neuropathy (G62.9) Active confirmed Problem Essential hypertension (37304066) Essential hypertension (I10) Active confirmed Problem Hyperlipidaemia (69903573) Hyperlipemia (E78.5) Active confirmed Problem Atrial fibrillation (45101253) Atrial fibrillation (I48.91) Active confirmed Problem Gastroesophageal reflux disease without esophagitis (905760881) Gastroesophageal reflux disease without esophagitis (K21.9) Active confirmed Problem 5240312091599 Coronary artery disease involving chicken ranch coronary artery of chicken ranch heart without angina pectoris (I25.10) Active confirmed Problem 52809225 Chronic obstructive pulmonary disease, unspecified COPD type (J44.9) Active confirmed Problem 010485913 Chronic systolic heart failure (I50.22) Active confirmed Problem Chronic bronchiolitis (799370320) Chronic bronchiolitis (J44.9) Active confirmed Problem 120666562 Peripheral arterial disease (I73.9) Active confirmed Problem Kidney stone (17029825) Kidney stone (N20.0) Active confirmed Problem 74931736 TRISH (generalized anxiety disorder) (F41.1) Active confirmed Problem 399964606 Insomnia, unspecified type (G47.00) Active confirmed Problem Ventricular tachyarrhythmia (9296830) Ventricular tachyarrhythmia (I47.2) Active confirmed Problem Cardiac pacemaker in situ (345436302) History of pacemaker (Z95.0) Active confirmed Problem Atherosclerosis of coronary artery (881329722) Atherosclerosis of chicken ranch coronary artery of chicken ranch heart with other form of angina pectoris (I25.118) Active confirmed Problem Automatic implantable cardiac defibrillator in situ (540911464) Presence of automatic implantable cardioverter-defib rillator (Z95.810) Active confirmed Problem 289298112 Adrenal mass, right (E27.9) Active confirmed Problem 362671044 Seasonal allergi c rhinitis, unspecified allergic rhinitis trigger (J30.2) Active confirmed Problem 223178605011474 History of ST elevation myocardial infarction (STEMI) (I25.2) Active confirmed Problem Automatic implantable cardiac defibrillator in situ (464306609) Presence of combination internal cardiac defibrillator (ICD) and pacemaker (Z95.810) Active confirmed Problem 93144699 Arterial leg ulc er (L97.909) Active confirmed Problem Chronic obstructive pulmonary disease (13946066) Advanced COPD (J44.9) Active confirmed Problem Betaxolol allergy (232149587) Betaxolol allergy (Z88.8) Active confirmed Problem Hypertensive heart failure (08669364) Unspecified hypertensive heart disease with heart failure (I11.0) Active confirmed Vital Signs Heart Rate 96 /min 02/27/2025 Temperature 97.0 degrees Fahrenheit 02/27/2025 Blood pressure diastolic 88 mm Hg 02/27/2025 Height 64 in 02/27/2025 Blood pressure systolic 136 mm Hg 02/27/2025 Weight 154 lbs 02/27/2025 BMI 26.43 kg/m2 02/27/2025 Encounters Encounter Location Date Provider Diagnosis [facility] [address] [place] [address] 12/30/2024 Provider Migration [facility] [address] [place] [address] 02/27/2025 Sarah Wing Routine medical exam Z00.00 ; Coronary artery disease involving chicken ranch coronary artery of chicken ranch heart without angina pectoris I25.10 ; Gastroesophageal reflux disease without esophagitis K21.9 ; Chronic systolic heart failure I50.22 ; Peripheral arterial disease I73.9 ; Paroxysmal atrial fibrillation I48.0 ; Hyperlipemia E78.5 ; senior care (current) use of anticoagulants Z79.01 ; Essential hypertension I10 ; Encounter for screening for malignant neoplasm of colon Z12.11 ; Visit for screening mammogram Z12.31 and BMI 26.0-26.9,adult Z68.26 [facility] [address] [address] 10/02/2024 William Hunter [facility] [address] [address] 01/29/2025 Sarah Wing [facility] [address] [facility] [address] [place] [address] 02/27/2025 Sarah Wing [facility] [address] [address] 03/05/2025 William Hunter Assessments Encounter Date Diagnosis (ICD Code) Assessment Notes Treatment Notes Treatment Clinical Notes Section Notes 02/27/2025 Routine medical exam (ICD-10 - Z00.00) Needs mammogram and cologuard, will arrange again 02/27/2025 Coronary artery disease involving chicken ranch coronary artery of chicken ranch heart without angina pectoris (ICD-10 - I25.10) [...] well. WIll check fasting lipid panel 02/27/2025 terminal system operator (current) use of anticoagulants (ICD-10 - Z79.01) 02/27/2025 Essential hypertension (ICD-10 - I10) Blood pressure at goal. 02/27/2025 Encounter for screening for malignant neoplasm of colon (ICD-10 - Z12.11) 02/27/2025 Visit for screening mammogram (ICD-10 - Z12.31) 02/27/2025 BMI 26.0-26.9,adult (ICD-10 - Z68.26) BMI acceptable Plan Of Treatment Pending Test Test Name Order Date Urinalysis 03/22/2018 Urinalysis 10/14/2016 X ray : Shoulder, Left 09/14/2006 X ray : Orbits, Bilateral 09/14/2006 X ray : Nasal Bone 09/14/2006 X ray : Humerus, Left 09/14/2006 Mammogram : Bilateral 02/27/2025 Mammogram : Bilateral 07/19/2023 H-CBC with AUTO DIFF 01/31/2018 H-BMP 01/31/2018 H-BUN 07/21/2016 H-CREATININE SERUM 07/21/2016 H-MAGNESIUM 01/31/2018 H-LIVER PANEL 07/27/2016 H-TSH 01/31/2018 CT Scan : Abdomen Adrenal Protocol 07/17 LIPID PANEL, STANDARD (7600) 02/27/2025 LIPID PANEL, STANDARD (7600) 10/19/2023 COMPREHENSIVE METABOLIC PANEL (19858) COMPREHENSIVE METABOLIC PANEL (25585) CBC (INCLUDES DIFF/PLT) (6399) 4 CBC (INCLUDES DIFF/PLT) (6399) 5 Insurance Providers Payer Name Payer Address Payer Phone Subscriber Number Group Number Insured Name Patient Relationship to Insured Coverage Start Date Coverage End Date [employer] [facility] [address] [address] [place] [address] [id number] Ashley Ding Self - patient is the insured Medications Administered Medication Instructions Date of Administration Dosage Notes Kenalog 40mg 07/27/2017 40 mg Medical (General) History Medical History History ICD Code hypertension emphysema HLD CAD COPD STEMI with 3 NORI to RCA Pacemaker 03/13 Heart Cath- EF 30%, Echo EF 25% Surgical History Surgery Date(Month/Year) cardiac stents x 3 06/2016 right femur fx repair colonoscopy Barium enema 09/2016 Pacemaker 11/05/2016 Heart Cath- Stent placed in right leg Pacemaker/Defibrillator 04/12/2017 Kidney stent 08/2021 Angiogram-lt leg 02/2022 Left foot surgery 05/2022 Left 2nd Digit amputation 02/2023 Angiogram 01/28/23 Transmetatarsal Amputation of Left toe Hospitalization History Reason Date(Month/Year) [facility]- blood cot 12/2024 [facility] 05/2023 [facility]- defibrillator shock, foot infection 12/2021 chest pain 2006 [facility] 06/2016
--- OUTSIDE RECORDS SUMMARY | 2025-03-14 14:53 | XMS_ITS | Clinical Summary ---
Author Organization Healthcare Address [address] [place] [address] Care Team Providers Care Video Game Developer Name Role Phone Fariha Henderson APRN Primary Care Provider Social History Tobacco Use Types Packs/Day Years Used Date Smoking Tobacco: Never Assessed Comments Unknown Sex and Gender Information Value Date Recorded Sex Assigned at Not on file Legal Sex Female 7:27 PM EDT Gender Identity Not on file Sexual Orientation Not on file Plan of Treatment Not on file Care Teams Video Game Developer Relationship Specialty Start Date End Date Fariha Henderson APRN [address] [place] [address] PCP - General 02/07/21
== END 2025-03-14 23:59 | disposition home or self-care (01) ==
LOC: RAD 14:48
PROVIDERS: PCP Internal Medicine Adolescent Medicine; Visit Provider Nurse Practitioner Family
DX: Z12.31 Encounter for screening mammogram for malignant neoplasm of breast (principal); N63.22 Unspecified lump in the left breast, upper inner quadrant; R92.333 Mammographic heterogeneous density, bilateral breasts
CPT/HCPCS: 77063; 77067

== ENCOUNTER 2025-03-23 09:35 | Outpatient (CLI) | payer OTHER, SELFPAY ==
--- OUTSIDE RECORDS SUMMARY | 2024-12-30 17:30 | XMS_ITS ---
Author Organization [facility] D [facility] Address [address] [place] [address] Care Team Providers Care Residential Program Manager Name Role Phone William Hunter Primary Care Provider Sarah Wing Unavailable [phone] Migration, Provider Unavailable Unavailable Allergies Allergen (clinical drug ingredient) Drug/Non Drug Allergy documented on EMR Reaction Allergy Type Onset Date Status Substance with 5-qvlscdj-2-methylg lutaryl-coenzyme A reductase inhibitor mechanism of action (substance) Statins couldnt walk Drug Allergy Active codeine Codeine Unknown Drug Allergy Active hydrocodone HYDROcodone itchy and nausea Drug Allergy Active RE[facility] FOR VISIT [facility] Encounter Medications Medication SIG (Take, Route, Frequency, Duration) Notes Start Date End Date Status Metoprolol Succinate ER 100 MG TAKE 1 AND 1/2 TABLET BY MOUTH TWICE DAILY; Duration: 30 days Active Aspirin 81 MG 1 TAB(S) ORALLY ONCE A DAY *Please review and pick correct strength[facility]formula [facility]ion [facility]. If intended option is not [...] Active Encounters Encounter Location Date Provider Diagnosis [place] [facility] [address] [facility] [address] [place] [address] 12/30/2024 Provider Migration Plan Of Treatment Medication [...] Notes * Rodo GLEZB:1965 (59 yo F)Acc No.[id number]:12/30/2024 Patient: Ashley NICOLE Provider: Janell elizabeth Migration :1965 Mamta ge:59 Y S ex:Female Date:12/30/2024 [id number] Pcp:William Hunter Subjective: * Chief Complaints: * 1 . Multum To Medispan Conversion Encounter. * Medical History: * Medications: T aking Aspirin 81 MG TABLET 1 TAB(S) ORALLY ONCE A DAY , Notes to Pharmacist: *Please review and pick correct strength-formulation from [employer] options. If intended option is not shown, [...] Electronic signature of Prov ider Migration on 03/23/2025 at 09:38 AM EDT Sign off status: Pending * Provider: Janell elizabeth Migration Date: 12/30/2024 Generated for Zuleima crockett/Joe/Farrukh on: 0 03/23/2025 09:38 AM EDT
--- OUTSIDE RECORDS SUMMARY | 2025-01-25 14:30 | XMS_ITS | Encounter Summary ---
Author Organization [place] [address] Care Team Providers Care Casework Supervisor Name Role Phone González Gotti MD Unavailable [phone] Cristi Cleaning MD Unavailable [phone] William Hunter MD Primary Care Provider [phone] Reason for Referral * In Office Procedure (Routine) - Pending Review Specialty Diagnoses / Procedures Referred By Contac t Referred To Contact Diagnoses Pressure ulcer of left heel, stage 4 (HCC) Foot ulceration, left, with necrosis of muscle (HCC) Procedures MO DEBRIDEMENT MUSCLE &/FASCIA 1ST 20 SQ CM/< Cristi Pelletier DPM [address] [phone] Phone: tel: fax: Referral ID Status Reason Start Date Expiration Date V isits Requested Visits Authorized [id number] Pending Review 01/28/2025 01/28/2026 1 1 * (Routine) - Pending Review Specialty Diagnoses / Procedures Referred By Contherlinda t Referred To Contact Diagnoses Foot ulceration, left, with necrosis of muscle (HCC) Procedures [facility] PRIMARY DRESSING Cristi Pelletier DPM [address] [address] Phone: tel: fax: Referral ID Status Reason Start Date Expiration Date V isits Requested Visits Authorized [id number] Pending Review 01/25/2025 01/25/2026 1 1 Reason for Visit * Reason Comments Wound Check * Consultation (Routine) - Authorization Not Needed Specialty Diagnoses / Procedures Referred By Contac t Referred To Contact Wound Care Diagnoses Wound Care Procedures MO DEBRIDEMENT SUBCUTANEOUS TISSUE 1ST 20 SQ CM/< MO DEBRIDEMENT MUSCLE &/FASCIA 1ST 20 SQ CM/< MO DEBRIDEMENT BONE 1ST 20 SQ CM/< MO DEBRIDEMENT SUBCUTANEOUS TISSUE EA ADDL 20 SQ CM MO DEBRIDEMENT MUSCLE &/FASCIA EA ADDL 20 SQ CM MO DEBRIDEMENT BONE EACH ADDITIONAL 20 SQ CM MO DEBRIDEMENT OPEN WOUND FIRST 20 SQ CM/< MO DEBRIDEMENT OPN WND EA ADDL 20 SQ CM/PRT THEREOF [facility] [place] [address] [place] [address] Phone: tel: fax: Referral ID Status Reason Start Date Expiration Date Visits Requested Visits Authorized [id number] Authorization Not Needed Specialty Services Required 5 01/08/2026 99 99 Encounter Details Date Type Department Care Team (Latest Contact Info) Description 01/25/2025 2:30 PM EDT - 01/25/2025 11:59 PM EDT Hospital Encounter [facility] [place] [address] [place] [place] [address] Cristi Pelletier DPM [address] [phone] Pressure ulcer of left heel, [...] drink = 0.6 oz pur e alcohol) [facility] Utilities Answer Date Recorded In the past [...] Date Recorded PHQ-2 Total Score 0 12/28/2024 [facility] - Occupational Stress Questionnaire Answer Date Recorded [...] things needed for daily living? No 05/29/2023 [facility] IP Transportation Answer D ate Recorded In [...] days. fluticasone propionate (FLONASE) 50 mcg/actuation Nasl [place], Suspension 1 spay each nostril twice daily [...] EDT 06/11/2023 oxymetazoline (AFRIN) 0.05 % Nasl [place], Non-Aerosol 1 [place] by Nasal route as needed for Congestion [...] Bradycardia CAD (coronary artery disease) Cardiac pacemaker [facility] Dual PPM 11/05/2016 - Dr. Cleaning Chronic systolic heart failure (HCC) COPD (chronic obstructive pulmonary disease) ([facility]) Depression with anxiety Emphysema, unspecified (HCC) Essential hypertension Headache Heartburn History of cardiac cath 03/23/2017 Stent placed in Right leg 03/23/2017 HLD (hyperlipidemia) Hypertension MS (myocardial infarction) ([facility]) 06/2016 Pacemaker Post-operative nausea and vomiting Sinus node dysfunction ([facility]) PJ Dual PPM 11/05/2016 - Dr. Cleaning STEMI (ST elevation myocardial infarction) ([facility]) STEMI with 3 NORI to RCA Systolic heart failure ([facility]) 02/2017 ECHO, EF 25% Past Surgical History: Procedure Laterality Date CARDIAC CATHETERIZATION Right 03/23/2017 stent placed in right leg CARDIAC PACEMAKER PLACEMENT 11/05/2016 [facility] Dual PPM COLONOSCOPY CORONARY ANGIOPLASTY WITH STENT PLACEMENT 06/2016 x3 DEBRIDEMENT Left 05/19/2023 .; Surgeon: Jabari Hill DPM; Location: [facility] MAIN OR; Service: Orthopedics FEMUR FRACTURE SURGERY Right right femur fx repair FOOT SURGERY FOOT SURGERY Left 12/23/2022 Left foot heel and second and third toe debridement with application of skin graft substitute. ; Surgeon: Jabari Hill DPM; Location: [facility] MAIN OR; Service: Orthopedics FOOT SURGERY Left 02/10/2023 Surgeon: Jabari Hill DPM; Location: [facility] MAIN OR; Service: Orthopedics FOOT SURGERY Left 06/06/2023 left FOOT TRANSMETATARSAL amputation; Surgeon: Jabari Hill DPM; Location: [facility] MAIN OR; Service: Podiatry HAMMER TOE SURGERY Left 06/15/2022 Left foot Correction of hammer toe deformity with arthroplasty second and third toe. Left foot Application of skin graft substitute.; Surgeon: Jabari Hill DPM; Location: [facility] MAIN OR; Service: Podiatry HIP SURGERY IR [...] IR REVAS FEM POP ART UNILAT W TEAM LEADER SURGERY 03/13/2022 IR REVAS FEM POP ART UNILAT W TEAM LEADER SURGERY 03/13/2022 Kashif Wong MD [facility] IR IR REVAS FEM POP ART UNILAT W TEAM LEADER SURGERY 06/02/2023 IR REVAS FEM POP ART UNILAT W TEAM LEADER SURGERY 06/02/2023 Vishnu Penn MD [facility] IR IR REVAS FEM POP ART UNILAT W TEAM LEADER SURGERY 12/28/2024 IR REVAS FEM POP ART UNILAT W TEAM LEADER SURGERY 12/28/2024 Vishnu Penn MD [facility] IR IR [...] 05/19/2023 .; Surgeon: Jabari Hill DPM; Location: [facility] MAIN OR; Service: Orthopedics SKIN GRAFT Left 06/15/2022 Surgeon: Jabari Hill DPM; Location: [facility] MAIN OR; Service: Podiatry SKIN GRAFT Left 12/23/2022 . ; Surgeon: Jabari Hill DPM; Location: [facility] MAIN OR; Service: Orthopedics SKIN GRAFT 02/10/2023 Surgeon: Jabari Hill DPM; Location: [facility] MAIN OR; Service: Orthopedics TOE AMPUTATION Left 02/10/2023 Left foot second toe amputation, Left foot excisional debridement with application of skin graft substitute; Surgeon: Jabari Hill DPM; Location: [facility] MAIN OR; Service: Orthopedics TOE AMPUTATION Left 05/19/2023 Left foot, amputation of third toe. Left foot, wound debridment application. Left foot, skin graft substitute. Left foot wound debridment closure.; Surgeon: Jabari Hill DPM; Location: [facility] MAIN OR; Service: Orthopedics Current Outpatient Medications [...] days. fluticasone propionate (FLONASE) 50 mcg/actuation Nasl [place], Suspension 1 spay each nostril twice daily [...] Tablet 0 oxymetazoline (AFRIN) 0.05 % Nasl [place], Non-Aerosol 1 [place] by Nasal route as needed for Congestion (30 min. prior to HBO2-PRN, difficulty clearing ears.). (Patient not taking: Reported on 01/25/2025) No current facility-administered medications for this encounter. Allergies Allergen Reactions Atorvastatin Myalgia Ezetimibe Myalgia Rosuvastatin Myalgia Simvastatin Myalgia Lqpnawm-Axy-Ont Reductase Inhibitors Other (See Comments) Joint pain [...] of left heel, stage 4 (HCC) - MO DEBRIDEMENT MUSCLE &/FASCIA 1ST 20 SQ CM/< Foot ulceration, left, with necrosis of muscle (HCC) - [facility]B [facility] PRIMARY DRESSING - MO DEBRIDEMENT MUSCLE &/FASCIA 1ST 20 SQ CM/< [...] TMA site- paint with betadine daily. 01/08 [facility]ound [facility] has been contacted to obtain your wound [...] feel free to reach out to our community recreation coordinator, Hanna Riggs at [phone] for any discussion. WHO TO CALL FOR PROBLEMS: Please call the OP wound care center with any problems or issues you may have after your visit or though the week. Each patient is assigned a corrections caseworker who can assist with issues you may be having. Rosmery is your corrections caseworker Individual office numbers are listed below. Press 1 for immediate or schedule needs, press 2 for the nursing line. The nurse line is for non-emergent needs and will be answered within 24 hours duringbusiness days. If you have a more immediate concern, press option #1. Office numbers: [phone] [phone] [facility] [phone] Our offices do not have an on-call provider. If you have emergent needs after hours please contact your primary care provider. You may also utilize the [facility] Nurse NOW Helpline: 3-502-9QLQ-NOW for after-hours needs to get in contact with a nurse for assistance. documented in this encounter Plan of Treatment Upcoming Encounters Date Type Department Care Team (Late st Contact Info) Description 03/26/2025 1:15 PM EDT Appointment [facility] [address] [place] [address] Cristi Pelletier, ROGER [address] [phone] 03/27/2025 8:00 AM EDT Office Visit [facility] [address] [facility] [address] [place] [phone] Vishnu Penn MD [address] [place] [address] DR XAVIER [address] [place] [address] 05/10/2025 10:20 AM EDT Office Visit [facility] [address] [facility] [address] [place] [phone] May, Nette Rand SOCIAL MEDIA SPECIALIST [address] [place] [address] DR OZUNA [address] [place] [address] 11/12/2025 1:30 PM EST Appointment [facility] [address] [place] [address] [place] [phone] May, Nette Rand SOCIAL MEDIA SPECIALIST [address] [place] [address] DR OZUNA [address] [place] [address] 11/12/2025 2:40 PM EST Office Visit [facility] [address] [place] [address] [place] [phone] MayNette SOCIAL MEDIA SPECIALIST [address] [place] [address] DR OZUNA [address] [place] [address] Scheduled Orders Name Type Priority Associated Diagnoses Orde r Schedule MO DEBRIDEMENT MUSCLE &/FASCIA 1ST 20 SQ CM/< MO Charge Routine Pressure ulcer of left heel, [...] 01/25/2025 documented in this encounter Care Teams Casework Supervisor Relationship Specialty Start Date End Date William Hunter MD [address] [place] [phone] PCP - General Internal Medicine-Adolescent Medicine 05/28/23 González Gotti MD [address] [place] [address] DR [place] [phone] Consulting Physician Internal Medicine - Clinical Cardiac Electrophysiology 04/05/17 Cristi Cleaning MD [address] [place] [address] DR [place] [phone] Physician Internal Medicine-Cardiovascular Disease 04/05/17 documented as of this encounter
--- OUTSIDE RECORDS SUMMARY | 2025-02-01 14:58 | XMS_ITS | Encounter Summary ---
Author Organization [place] [address] Care Team Providers Care Box Hinge And Lock Attacher Name Role Phone González Gotti MD Unavailable [phone] Cristi Cleaning MD Unavailable [phone] William Hunter MD Primary Care Provider [phone] Reason for Referral * In Office Procedure (Routine) - Pending Review Specialty Diagnoses / Procedures Referred By Contac t Referred To Contact Diagnoses Stage III pressure ulcer of left heel (HCC) Procedures [place] DEBRIDEMENT SUBCUTANEOUS TISSUE 1ST 20 SQ CM/< Cristi Pelletier DPM [address] [place] [phone] Phone: tel: fax: Referral ID Status Reason Start Date Expiration Date V isits Requested Visits Authorized [id number] Pending Review 02/05/2025 02/05/2026 1 1 * (Routine) - Pending Review Specialty Diagnoses / Procedures Referred By Contac t Referred To Contact Diagnoses Stage III pressure ulcer of left heel (HCC) Procedures [facility] PRIMARY DRESSING Cristi Pelletier DPM [address] [address] Phone: tel: fax: Referral ID Status Reason Start Date Expiration Date V isits Requested Visits Authorized [id number] Pending Review 02/01/2025 02/01/2026 1 1 Reason for Visit * Reason Comments Wound Check * Consultation (Routine) - Authorization Not Needed Specialty Diagnoses / Procedures Referred By Brian t Referred To Contact Wound Care Diagnoses [...] WND EA ADDL 20 SQ CM/PRT THEREOF [facility] [place] [address] [address] [facility] [place] [address] Phone: tel: fax: Referral ID Status Reason Start Date Expiration Date Visits Requested Visits Authorized [id number] Authorization Not Needed Specialty Services Required 5 01/08/2026 99 99 Encounter Details Date Type Department Care Team (Latest Contact Info) Description 02/01/2025 2:58 PM EDT - 02/01/2025 11:59 PM EDT Hospital Encounter [facility] [address] [place] [address] Cristi Pelletier DPM [phone] [address] Stage III pressure ulcer of left heel (HCC) (Primary Dx) Discharge Disposition: Home or Self Care Social History Tobacco Use Types Packs/Day Years Used Date Smoking Tobacco: Former Cigarettes 0.3 40 0 12/26/1981 - 12/26/2021 Passive Smoke Exposure: Past Smokeless Tobacco: Never Alcohol Use Standard Drinks/Week Comments Not Currently 0 (1 standard drink = 0.6 oz pur e alcohol) [facility] Utilities Answer Date Recorded In the past 12 months has e electric, gas, oil, or water company threatened to shut off services in your home? No 12/28/2024 Overall Financial Resource Strain (CARDIA) Answe r Date Recorded How hard is it for you to pa y for the very basics like food, housing, medical care, and heating? Not hard at all 12/28/2024 PHQ-2 Answer Date Recorded PHQ-2 Total Score 0 12/28/2024 [facility] - Occupational Stress Questionnaire Answer Date Recorded [...] things needed for daily living? No 05/29/2023 [facility] IP Transportation Answer D ate [...] Sign Reading Time Taken Comments Blood Pressure - - Pulse - - Temperature 36.4 C (97.6 F) 02/01/2025 3:02 PM EDT Respiratory Rate 18 02/01/2025 3:02 PM EDT Oxygen Saturation - - Inhaled [...] of Assessment Author No 06/11/2023 2:58 PM Redd cMneill RN documented as of this encounter Mental Status * Because of a physical, mental or emotional condition, does this person have serious difficulty concentrating, remembering or making decisions? Answer Entry Date Author No 06/11/2023 2:58 PM Redd Mcneill RN documented in this encounter Medications at [...] days. fluticasone propionate (FLONASE) 50 mcg/actuation Nasl [place], Suspension 1 spay each nostril twice daily [...] EDT 06/11/2023 oxymetazoline (AFRIN) 0.05 % Nasl [place], Non-Aerosol 1 [place] by Nasal route as needed for Congestion [...] Progress Notes * Cristi Pelletier DPM - 02/01/2025 3:00 PM EDT Date of Visit:02/01/2025 Progress Note HPI Ashley Ding is a 59 y.o. year old female patient who presents today for wound evaluation and follow-up. Improving No drainage from the top of the foot Heel improving Past Medical History: Diagnosis Date Anesthesia complication only with phenergan, alarming how long it takes her to wake up Asthma Bradycardia CAD (coronary artery disease) Cardiac pacemaker [facility] Dual PPM 11/05/2016 - Dr. Cleaning Chronic systolic heart failure ([facility]) COPD (chronic obstructive pulmonary disease) ([facility]) Depression with anxiety Emphysema, unspecified ([facility]) Essential hypertension Headache Heartburn History of cardiac cath 03/23/2017 Stent placed in Right leg 03/23/2017 HLD (hyperlipidemia) Hypertension DE (myocardial infarction) ([facility]) 06/2016 Pacemaker Post-operative nausea and vomiting Sinus node dysfunction ([facility]) [facility] Dual PPM 11/05/2016 - Dr. Cleaning STEMI (ST elevation myocardial infarction) ([facility]) STEMI with 3 NORI to RCA Systolic heart failure ([facility]) 02/2017 ECHO, EF 25% Past Surgical History: Procedure Laterality Date CARDIAC CATHETERIZATION Right 03/23/2017 stent placed in right leg CARDIAC PACEMAKER PLACEMENT 11/05/2016 [facility] Dual PPM COLONOSCOPY CORONARY ANGIOPLASTY WITH STENT PLACEMENT 06/2016 x3 DEBRIDEMENT Left 05/19/2023 .; Surgeon: Jabari Hill DPM; Location: [facility] MAIN OR; Service: Orthopedics FEMUR FRACTURE SURGERY Right right femur fx repair FOOT SURGERY FOOT SURGERY Left 12/23/2022 Left foot heel and second and third toe debridement with application of skin graft substitute. ; Surgeon: Jabari Hill DPM; Location: [facility] MAIN OR; Service: Orthopedics FOOT SURGERY Left 02/10/2023 Surgeon: Jabari Hill DPM; Location: [facility] MA[facility] OR; Service: Orthopedics FOOT SURGERY Left 06/06/2023 left FOOT TRANSMETATARSAL amputation; Surgeon: Jabari Hill DPM; Location: [facility] MAIN OR; Service: Podiatry HAMMER TOE SURGERY Left 06/15/2022 Left foot Correction of hammer toe deformity with arthroplasty second and third toe. Left foot Application of skin graft substitute.; Surgeon: Jabari Hill DPM; Location: [facility] MAIN OR; Service: Podiatry HIP SURGERY IR [...] IR REVAS FEM POP ART UNILAT W SATURATION DIVER 03/13/2022 IR REVAS FEM POP ART UNILAT W SATURATION DIVER 03/13/2022 Kashif Wong MD [facility] IR IR REVAS FEM POP ART UNILAT W SATURATION DIVER 06/02/2023 IR REVAS FEM POP ART UNILAT W SATURATION DIVER 06/02/2023 Vishnu Penn MD [facility] IR IR REVAS FEM POP ART UNILAT W SATURATION DIVER 12/28/2024 IR REVAS FEM POP ART UNILAT W SATURATION DIVER 12/28/2024 Vishnu Penn MD [facility] IR IR [...] 05/19/2023 .; Surgeon: Jabari Hill DPM; Location: [facility] OR; Service: Orthopedics SKIN GRAFT Left 06/15/2022 Surgeon: Jabari Hill DPM; Location: [facility] OR; Service: Podiatry SKIN GRAFT Left 12/23/2022 . ; Surgeon: Jabari Hill DPM; Location: [facility] OR; Service: Orthopedics SKIN GRAFT 02/10/2023 Surgeon: Jabari Hill DPM; Location: [facility] OR; Service: Orthopedics TOE AMPUTATION Left 02/10/2023 Left foot second toe amputation, Left foot excisional debridement with application of skin graft substitute; Surgeon: Jabari Hill DPM; Location: [facility] OR; Service: Orthopedics TOE AMPUTATION Left 05/19/2023 Left foot, amputation of third toe. Left foot, wound debridment application. Left foot, skin graft substitute. Left foot wound debridment closure.; Surgeon: Jabari Hill DPM; Location: [facility] OR; Service: Orthopedics Current Outpatient Medications Medication Sig Dispense Refill albuterol (PROVENTIL HFA;VENTOLIN HFA) 90 mcg/actuation Inhl HFA Aerosol Inhaler Inhale 2 Puffs into the lungs every 6 hours as needed for Wheezing. amLODIPine (NORVASC) 5 mg Oral Tablet Take 5 mg by mouth daily. amoxicillin (AMOXIL) 500 mg Oral Capsule TAKE ONE CAPSULE BY MOUTH THREE TIMES DAILY UNTIL GONE -- FINISH ALL MEDICINE -- (Patient not taking: Reported on 01/25/2025) apixaban (ELIQUIS) 5 mg Oral Tablet Take [...] by mouth 2 times daily. evolocumab (REPATHA LUISICK) 140 mg/mL SubQ Pen Injector Subcutaneous (Inject under the skin) 140mg every 14 days. fluticasone propionate (FLONASE) 50 mcg/actuation Nasl [place], Suspension 1 spay each nostril twice daily (Patient taking differently: 2 Sprays by Nasal route daily as needed for Allergies. 1 spay each nostril twice daily) 1 Each 3 gabapentin (NEURONTIN) 300 mg Oral Capsule Take 300 mg by mouth 2 times daily. Takes every other day. hydroCHLOROthiazide (MICROZIDE) 12.5 mg Oral Capsule Take 25 mg by mouth daily. hydrOXYzine (ATARAX) 25 mg Oral Tablet 1 tab(s) orally 2 times a day for 30 days (Patient not taking: Reported on 01/25/2025) isosorbide mononitrate (IMDUR) 120 mg Oral Tablet [...] 5 minutes as needed for Chest pain. oxyCODONE-acetaminophen (PERCOCET) 5-325 mg Oral Tablet Take 1-2 Tablets by mouth every 4 hours as needed for Acute Pain (R52). (Patient not taking: Reported on 01/25/2025) 30 Tablet 0 oxymetazoline (AFRIN) 0.05 % Nasl [place], Non-Aerosol 1 [place] by Nasal route as needed for Congestion (30 min. prior to HBO2-PRN, difficulty clearing ears.). (Patient not taking: Reported on 01/25/2025) pantoprazole (PROTONIX) 40 mg Oral Tablet, Delayed Release (E.C.) Take 40 mg by mouth daily. Ranolazine 1,000 mg Oral Tablet Sustained Release 12 hr Take 1 Tablet by mouth 2 times daily. rOPINIRole (REQUIP) 1 mg Oral Tablet Take 1 mg by mouth nightly. VITAMIN B COMPLEX ORAL Take 1 Tablet by mouth daily. No current facility-administered medications for this encounter. Allergies Allergen Reactions Atorvastatin Myalgia Ezetimibe Myalgia Rosuvastatin Myalgia Simvastatin Myalgia Tczerhw-Thy-Vbm Reductase Inhibitors Other (See Comments) Joint pain Codeine Itching nausea Hydrocodone Itching nausea Phenergan [Promethazine] Other (See Comments) Made legs restless And also very sleepy ROS See HPI for further details. Relevant review of systems otherwise negative. Physical Exam Vitals: 02/01/25 1502 Resp: 18 Temp: 97.6 ??F (36.4 ??C) TempSrc: Forehead Ulcer Progress and Procedure Please refer to the LDA for details of ulcer progress and procedure. Ulcer evaluated left posterior plantar heel to subcutaneous tissue No gross evidence of infection No abscess or sinus formation No fluctuance No malodor No ascending cellulitis or lymphangitis No gross necrosis of wound edges or base Wound bed appears viable Distal dorsal TMA left is closed Assessment and Plan Ashley was seen today for wound check. Diagnoses and all orders for this visit: Stage III pressure ulcer of left heel (HCC) - [facility] PRIMARY DRESSING - [place] DEBRIDEMENT SUBCUTANEOUS TISSUE 1ST 20 SQ CM/< Other orders - lidocaine (XYLOCAINE) 5 % ointment - Cancel: [facility] PRIMARY DRESSING 1.continue standard ulcer therapy of this Arterial [...] up 1 week Sharp excisional debridement left heel utilizing curette down to and including subcutaneous tissue <20 sq cm with bleeding and subsequent hemostasis. Patient tolerated the procedure well. No significant episodes of pain. No adverse events. No debride TMA distally .erin documented in this encounter Miscellaneous Notes * Patient Instructions - Rosmery Cotto RN - 02/01/2025 3:00 PM EDT HOME-CARE INSTRUCTIONS FOLLOWING YOUR WOUND [...] Follow up in the Wound Care Center on February [address] Pelletier Left heel- collagen, adaptic, 4x4, roll gauze, every other day. Left TMA site- paint with betadine daily. 01/08 [facility] has been contacted to obtain [...] feel free to reach out to our rn coronary care unit, Hanna Riggs at [phone] for any discussion. WHO TO CALL FOR PROBLEMS: Please call the OP wound care center with any problems or issues you may have after your visit or though the week. Each patient is assigned a mental health case manager who can assist with issues you may be having. Individual office numbers are listed below. Press 1 for immediate or schedule needs, press 2 for the nursing line. The nurse line is for non-emergent needs and will be answered within 24 hours duringbusiness days. If you have a more immediate concern, press option #1. Office numbers: [phone] [place]-[phone] [place]- [phone] Our offices do not have an on-call provider. If you have emergent needs after hours please contact your primary care provider. You may also utilize the [facility] Nurse NOW Helpline: 1-907-7AFW-NOW for after-hours needs to get in contact with a nurse for assistance. documented in this encounter Plan of Treatment Upcoming Encounters Date Type Department Care Team (Late st Contact Info) Description 03/26/2025 1:15 PM EDT Appointment [facility] [place] [address] [address] [facility] [address] Cristi Pelletier, DPM [address] [address] 03/27/2025 8:00 AM EDT Office Visit [facility] [address] [place] [address] [place] [phone] Vishnu Penn MD [address] [place] [phone] 05/10/2025 10:20 AM EDT Office Visit [facility] [address] [place] [phone] Nette Jalloh APRN [address] [place] [phone] 11/12/2025 1:30 PM EST Appointment [facility] [address] [facility] [address] [place] [address] January, Nette Rand, P[employer] E[employer]IPMENT REPAIRER [address] [place], [place] [id number] 11/12/2025 2:40 PM EST Office Visit [facility] [address] [place] [address]ette [address] [place] [address] Scheduled Orders Name Type Priority Associated Diagnoses Orde r Schedule NH DEBRIDEMENT SUBCUTANEOUS TISSUE 1ST 20 SQ CM/< NH Charge Routine Stage III pressure ulcer of left heel (HCC) Ordered: 02/05/2025 documented as of this encounter Goals Goal [...] as of this encounter Visit Diagnoses Diagnosis Stage III pressure ulcer of left heel (HCC)- Primary Pressure ulcer, heel documented in this encounter Administered Medications Inactive Administered Medications - up to 1 most recent administrations Medication Order MAR Action Action Date Dose Rate Site lidocaine (XYLOCAINE) 5 % ointment Topical, ONCE, 1 dose, On Alicia 02/01/25 at 1530, Application site: calcaneous Given 02/01/2025 3:18 PM EDT documented in this encounter Orders Medications Ordered That Daniel ht Not Have Been Administered Count Last Ordered Date First Ordered Date lidocaine (XYLOCAINE) 5 % ointment 1 2024 Nursing Count Last Ordered Date First Orde red Date [facility]B [facility] PRIMARY DRESSING 1 02/01/2025 documented in this encounter Care Teams Box Hinge And Lock Attacher Relationship Specialty Start Date End Date William Hunter MD [address] [place] [id number] PCP - General Internal Medicine-Adolescent Medicine 05/28/23 González Gotti MD [address] [place] [address] [place] [address] Consulting Physician Internal Medicine - Clinical Cardiac Electrophysiology 04/05/17 Cristi Cleaning MD [address] [place] [address] [place] [address] Physician Internal Medicine-Cardiovascular Disease 04/05/17 documented as of this encounter
--- OUTSIDE RECORDS SUMMARY | 2025-02-07 09:40 | XMS_ITS | Encounter Summary ---
Author Organization [place] [address] Care Team Providers Care Refrigeration Systems Installer Name Role Phone González Gotti MD Unavailable [phone] Cristi Cleaning MD Unavailable [phone] William Hunter MD Primary Care Provider [phone] Reason for Referral * Vascular Imaging (Routine) - Closed Specialty Diagnoses / Procedures Referred By Brian villavicencio Referred To Contact Radiology Diagnoses PAD (peripheral artery disease) Peripheral vascular angioplasty status with implants and grafts Procedures [facility] LOWER EXTREMITY ARTERIAL DUPLEX COMPLETE Nette Jalloh APRN [address] [place] [address] [place] [address] Phone: tel: fax: Referral ID Status Reason Start Date Expiration Date Visits Re quested Visits Authorized [id number] Closed 02/07/2025 02/07/2026 1 1 Reason for Visit * Reason Comments Peripheral Arterial Disease (PAD) Encounter Details Date Type Department Care Team (Late st Contact Info) Description 02/07/2025 9:40 AM EDT Office Visit [facility] [address] [facility] [address] [place] [phone] Nette Jalloh APRN [address] [place] [address] [place] [id number] PAD (peripheral artery disease) (Primary Dx); [...] drink = 0.6 oz pur e alcohol) [facility] Utilities Answer Date Recorded In the past 12 months has e [place], gas, oil, or water [employer] threatened to shut off services in your home? No 12/28/2024 Overall Financial Resource Strain (CARDIA) Answe r Date Recorded How hard is it for you to pa y for the very basics like food, housing, medical care, and heating? Not hard at all 12/28/2024 PHQ-2 Answer Date Recorded PHQ-2 Total Score 0 12/28/2024 [facility] - Occupational Stress Questionnaire Answer Date [...] things needed for daily living? No 05/29/2023 [facility] IP Transportation Answer D ate Recorded In [...] Everywhere. * Peripheral artery disease and claudication (Urdu) documented in this encounter Progress Notes * [...] - Dr. 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 Cleaning STEMI (ST elevation myocardial infarction) ([facility]) STEMI with 3 NORI to RCA Systolic heart failure ([facility]) 02/2017 ECHO, EF 25% Patient Active Problem List Diagnosis Date Noted Stage III pressure ulcer of left heel ([facility]) 01/09/2025 Critical limb ischemia of both lower extremities ([facility]) 12/28/2024 DVT, lower extremity, distal, acute, left [...] situ 12/07/2023 Insomnia 12/07/2023 Kidney stone 12/07/2023 manager long term care current use of anticoagulant therapy 12/07/2023 Neuropathy 12/07/2023 Non-pressure chronic ulcer of skin of other sites with unspecified severity (HCC) 12/07/2023 Palpitations 12/07/2023 Atrial fibrillation with rapid ventricular response ([facility]) 12/07/2023 Seasonal allergic rhinitis 12/07/2023 Sinusitis 12/07/2023 Stented coronary artery 12/07/2023 Typical angina 12/07/2023 Ventricular fibrillation (HCC) 12/07/2023 Ventricular fibrillation seen on environmental monitoring specialist ([facility]) 12/07/2023 Ventricular tachyarrhythmia ([facility]) 12/07/2023 Failed flap 06/28/2023 Skin flap necrosis ([facility]) 06/28/2023 Atherosclerosis of artery of extremity with [...] 05/19/2023 .; Surgeon: Jabari Hill DPM; Location: [facility] MAIN OR; Service: Orthopedics FEMUR FRACTURE SURGERY Right right femur fx repair FOOT SURGERY FOOT SURGERY Left 12/23/2022 Left foot heel and second and third toe debridement with application of skin graft substitute. ; Surgeon: Jabari Hill DPM; Location: [facility] MAIN OR; Service: Orthopedics FOOT SURGERY Left 02/10/2023 Surgeon: Jabari Hill DPM; Location: [facility] MAIN OR; Service: Orthopedics FOOT SURGERY Left 06/06/2023 left FOOT TRANSMETATARSAL amputation; Surgeon: Jabari Hill DPM; Location: [facility] MA[facility] OR; Service: Podiatry HAMMER TOE SURGERY Left 06/15/2022 Left foot Correction of hammer toe deformity with arthroplasty second and third toe. Left foot Application of skin graft substitute.; Surgeon: Jabari Hill DPM; Location: [facility] MAIN OR; Service: Podiatry HIP SURGERY IR ABDOMINAL AORTOGRAM SERIALOGRAM 03/13/2022 IR ABDOMINAL AORTOGRAM SERIALOGRAM 03/13/2022 Kashif Wong MD [facility] IR IR ABDOMINAL AORTOGRAM SERIALOGRAM 11/04/2022 IR ABDOMINAL AORTOGRAM SERIALOGRAM 11/04/2022 Vishun Penn MD [facility] IR IR ABDOMINAL AORTOGRAM [...] IR REVAS FEM POP ART UNILAT W FINISH CARPENTER 03/13/2022 IR REVAS FEM POP ART UNILAT W FINISH CARPENTER 03/13/2022 Kashif Wong MD [facility] IR IR REVAS FEM POP ART UNILAT W FINISH CARPENTER 06/02/2023 IR REVAS FEM POP ART UNILAT W FINISH CARPENTER 06/02/2023 Vishnu Penn MD [facility] IR IR REVAS FEM POP ART UNILAT W FINISH CARPENTER 12/28/2024 IR REVAS FEM POP ART UNILAT W FINISH CARPENTER 12/28/2024 Vishnu Penn MD [facility] IR IR [...] 05/19/2023 .; Surgeon: Jabari Hill DPM; Location: [facility] MAIN OR; Service: Orthopedics SKIN GRAFT Left 06/15/2022 Surgeon: Jabari Hill DPM; Location: [facility] MAIN OR; Service: Podiatry SKIN GRAFT Left 12/23/2022 . ; Surgeon: Jabari Hill DPM; Location: [facility] MAIN OR; Service: Orthopedics SKIN GRAFT 02/10/2023 Surgeon: Jabari Hill DPM; Location: [facility] MAIN OR; Service: Orthopedics TOE AMPUTATION Left 02/10/2023 Left foot second toe amputation, Left foot excisional debridement with application of skin graft substitute; Surgeon: Jabari Hill DPM; Location: [facility] MAIN OR; Service: Orthopedics TOE AMPUTATION Left 05/19/2023 Left foot, amputation of third toe. Left foot, wound debridment application. Left foot, skin graft substitute. Left foot wound debridment closure.; Surgeon: Jabari Hill DPM; Location: [facility] MAIN OR; Service: Orthopedics Family History Problem [...] DAILY fluticasone propionate (FLONASE) 50 mcg/actuation Nasl Holden, Suspension 1 spay each nostril twice daily [...] HOURS PRN oxymetazoline (AFRIN) 0.05 % Nasl Holden, Non-Aerosol 1 Holden, Nasal, PRN pantoprazole (PROTONIX) 40 mg, DAILY Ranolazine 1,000 mg Oral Tablet Sustained Release 12 hr 1 Tablet, 2 TIMES DAILY Repatha SureClick 140 mg, EVERY 14 DAYS rOPINIRole (REQUIP) 1 mg, NIGHTLY VITAMIN B COMPLEX ORAL 1 Tablet, DAILY Allergies Allergen Reactions Atorvastatin Myalgia Ezetimibe Myalgia Rosuvastatin Myalgia Simvastatin Myalgia Pvyxrab-Vvc-Cnh Reductase Inhibitors Other (See Comments) Joint pain [...] proximal SFA, 138 cm/s. Patency of the PILE FABRIC KNITTER,profunda, SFA, popliteal artery, FINISH CARPENTER, SHAMIR, and the DPA. The FINISH CARPENTER, SHAMIR, and the DPA are all dampened with biphasic Doppler waveforms. Mild to moderate plaque noted throughout the arteries of the right lower extremity. * Left: * 20-49 % stenosis of the profunda, 182 cm/s. Patency of the PILE FABRIC KNITTER, profunda,SFA, popliteal artery, FINISH CARPENTER, SHAMIR, and the DPA. The FINISH CARPENTER, SHAMIR, and the DPA are all dampened with biphasic Doppler waveforms. Mild to moderate plaque noted throughout the arteries of the left lower extremity. Assessment and Plan: Ashley was seen today for peripheral arterial disease (pad). Diagnoses and all orders for this visit: PAD (peripheral artery disease) - [facility] LOWER EXTREMITY ARTERIAL DUPLEX COMPLETE; Future Primary hypertension Comments: BP well controlled Chronic obstructive pulmonary disease, unspecified COPD type (HCC) Peripheral vascular angioplasty status with implants and grafts - [facility] LOWER EXTREMITY ARTERIAL DUPLEX COMPLETE; Future S/P [...] Info) Description 03/26/2025 1:15 PM EDT Appointment [facility] [place] [address] [place] [address] Cristi Pelletier, DPM [address] [address] 03/27/2025 8:00 AM EDT Office Visit [facility] [address] [facility] [address] [place] [phone] Vishnu Penn MD [address] [place] [address] [place] [phone] 05/10/2025 10:20 AM EDT Office Visit [facility] [address] [facility] [place] [phone] Nette Jalloh APRN [address] [place] [phone] 11/12/2025 1:30 PM EST Appointment [facility] [address] [place] [address] [place] [phone] Nette Jalloh APRN [address] [place] [phone] 11/12/2025 2:40 PM EST Office Visit [facility] [address] [place] [address] [place] [phone] Nette Jalloh SUPERVISOR [employer] [address] [place] [address] documented as of this encounter Goals Goal [...] documented as of this encounter Results * [facility] US LOWER EXTREMITY ARTERIAL DUPLEX COMPLETE (02/20/2025 2:08 PM EDT) Anatomical Region Laterality Modality Vascular, Leg Electrocardiogra phy 02/20/2025 1:19 PM EDT Impressions 02/20/2025 2:26 PM EDT Conclusions * Right: * RODOLFO: 0.63 (DPA, distal FINISH CARPENTER occluded) / TBI: 0, absent waveform. There is an occlusion of the distal posterior tibial artery. Dampened, biphasic flow of the proximal and mid posterior tibial artery. Mild to moderate plaque noted in the arteries of the right lower extremity. * Left: * RODOLFO: 1.29 (FINISH CARPENTER) / TBI: 0, metatarsal amputation. 20-49 % stenosis of the profunda, 145 cm/s. There is an occlusion of the proximal anterior tibial artery and the mid peroneal artery. Mild to moderate plaque noted in the arteries of the left lower extremity. Narrative Procedure Note Eusebio De Leon MD - 02/20/2025 IMPRESSION Conclusions * Right: * RODOLFO: 0.63 (DPA, distal FINISH CARPENTER occluded) / TBI: 0, absent waveform. Thereis an occlusion of the distal posterior tibial artery. Dampened, biphasicflow of the proximal and mid posterior tibial artery. Mild to moderate plaquenoted in the arteries of the right lower extremity. * Left: * RODOLFO: 1.29 (FINISH CARPENTER) / TBI: 0, metatarsal amputation. 20-49 % [...] grafts documented in this encounter Care Teams Refrigeration Systems Installer Relationship Specialty Start Date End Date William Hunter MD [address] [place] [phone] PCP - General Internal Medicine-Adolescent Medicine 05/28/23 González Gotti MD [address] [place] [address] [place] [phone] Consulting Physician Internal Medicine - Clinical Cardiac Electrophysiology 04/05/17 Cristi Cleaning MD [address] [place] [address] Physician Internal Medicine-Cardiovascular Disease 04/05/17 documented as of this encounter
--- OUTSIDE RECORDS SUMMARY | 2025-02-12 14:25 | XMS_ITS | Encounter Summary ---
Author Organization [place] [address] Care Team Providers Care Finger Buffs Assembler Name Role Phone González Gotti MD Unavailable [phone] Cristi Cleaning MD Unavailable [phone] William Hunter MD Primary Care Provider + [phone] Reason for Referral * In Office Procedure (Routine) - Pending Review Specialty Diagnoses / Procedures Referred By Contac t Referred To Contact Diagnoses 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) Stage III pressure ulcer of left heel (HCC) Procedures HI DEBRIDEMENT SUBCUTANEOUS TISSUE 1ST 20 SQ CM/< Cristi Pelletier DPM [address] [address] Phone: tel: fax: Referral ID Status Reason Start Date Expiration Date V isits Requested Visits Authorized [id number] Pending Review 02/15/2025 02/15/2026 1 1 * (Routine) - Pending Review Specialty Diagnoses / Procedures Referred By Contac t Referred To Contact Diagnoses Stage III pressure ulcer of left heel (HCC) Procedures [facility] Cristi Pelletier DPM [address] [address] Phone: tel: fax: Referral ID Status Reason Start Date Expiration Date V isits Requested Visits Authorized [id number] Pending Review 02/13/2025 02/13/2026 1 1 Reason for Visit * Reason Comments Wound Check * Consultation (Routine) - Authorization Not Needed Specialty Diagnoses / Procedures Referred By Brian t Referred To Contact Wound Care Diagnoses Wound Care Procedures HI DEBRIDEMENT SUBCUTANEOUS TISSUE 1ST 20 SQ CM/< HI DEBRIDEMENT MUSCLE &/FASCIA 1ST 20 SQ CM/< HI DEBRIDEMENT BONE 1ST 20 SQ CM/< HI DEBRIDEMENT SUBCUTANEOUS TISSUE EA ADDL 20 SQ CM HI DEBRIDEMENT MUSCLE &/FASCIA EA ADDL 20 SQ CM HI DEBRIDEMENT BONE EACH ADDITIONAL 20 SQ CM HI DEBRIDEMENT OPEN WOUND FIRST 20 SQ CM/< HI DEBRIDEMENT OPN WND EA ADDL 20 SQ CM/PRT THEREOF [facility] [address] [place] [address] Phone: tel: fax: Referral ID Status Reason Start Date Expiration Date Visits Requested Visits Authorized [id number] Authorization Not Needed Specialty Services Required 5 01/08/2026 99 99 Encounter Details Date Type Department Care Team (Latest Contact Info) Description 02/12/2025 2:25 PM EDT - 02/12/2025 11:59 PM EDT Hospital Encounter [facility] [address] [place] [address] Cristi Pelletier DPM [phone] [address] 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) (Primary Dx); Stage III pressure ulcer of left heel (HCC) Discharge Disposition: Home or Self Care Social History Tobacco Use Types Packs/Day Years Used Date Smoking Tobacco: Former Cigarettes 0.3 40 0 12/26/1981 - 12/26/2021 Passive Smoke Exposure: Past Smokeless Tobacco: Never Alcohol Use Standard Drinks/Week Comments Not Currently 0 (1 standard drink = 0.6 oz pur e alcohol) [facility] Utilities Answer Date Recorded In the past 12 months has [facility] [employer], oil, or water [employer] threatened to shut off services in your home? No 12/28/2024 Overall Financial Resource Strain (CARDIA) Answe r Date Recorded How hard is it for you to pa y for the very basics like food, housing, medical care, and heating? Not hard at all 12/28/2024 PHQ-2 Answer Date Recorded PHQ-2 Total Score 0 12/28/2024 [facility] - Occupational Stress Questionnaire Answer Date [...] things needed for daily living? No 05/29/2023 [facility] IP Transportation Answer D ate Recorded In [...] Sign Reading Time Taken Comments Blood Pressure 96/65 02/12/2025 2:58 PM EDT Pulse 68 02/12/2025 2:58 PM EDT Temperature 36.6 C (97.8 F) 02/12/2025 2:58 PM EDT Respiratory Rate 18 02/12/2025 2:58 PM EDT Oxygen Saturation - - Inhaled [...] days. fluticasone propionate (FLONASE) 50 mcg/actuation Nasl [place], Suspension 1 spay each nostril twice daily [...] EDT 06/11/2023 oxymetazoline (AFRIN) 0.05 % Nasl [place], Non-Aerosol 1 [place] by Nasal route as needed for Congestion [...] Progress Notes * Cristi Pelletier DPM - 02/12/2025 3:00 PM EDT Date of Visit:02/12/2025 Progress Note HPI Ashley Ding is a 59 y.o. year old female patient who presents today for wound evaluation and follow-up. No drainage or bleeding from the dorsal dorsal foot Patient denies any fever, chills, nausea or vomiting Past Medical History: Diagnosis Date Anesthesia complication only with phenergan, alarming how long it takes her to wake up Asthma Bradycardia CAD (coronary artery disease) Cardiac pacemaker [facility] Dual PPM 11/05/2016 - Dr. Cleaning Chronic systolic heart failure ([facility]) COPD (chronic obstructive pulmonary disease) ([facility]) Depression with anxiety Emphysema, unspecified (HCC) Essential hypertension Headache Heartburn History of cardiac cath 03/23/2017 Stent placed in Right leg 03/23/2017 HLD (hyperlipidemia) Hypertension FL (myocardial infarction) ([facility]) 06/2016 Pacemaker Post-operative nausea and vomiting Sinus node dysfunction ([facility]) [facility] Dual PPM 11/05/2016 - Dr. Cleaning STEMI (ST elevation myocardial infarction) ([facility]) STEMI with 3 NORI to RCA Systolic heart failure ([facility]) 02/2017 ECHO, EF 25% Past Surgical History: Procedure Laterality Date CARDIAC CATHETERIZATION Right 03/23/2017 stent placed in right leg CARDIAC PACEMAKER PLACEMENT 11/05/2016 [facility] Dual PPM COLONOSCOPY CORONARY ANGIOPLASTY WITH STENT PLACEMENT 06/2016 x3 DEBRIDEMENT Left 05/19/2023 .; Surgeon: Jabari Hill DPM; Location: [facility] MA[facility] OR; Service: Orthopedics FEMUR FRACTURE SURGERY Right right femur fx repair FOOT SURGERY FOOT SURGERY Left 12/23/2022 Left foot heel and second and third toe debridement with application of skin graft substitute. ; Surgeon: Jabari Hill DPM; Location: [facility] OR; Service: Orthopedics FOOT SURGERY Left 02/10/2023 Surgeon: Jabari Hill DPM; Location: [facility] MA[facility] OR; Service: Orthopedics FOOT SURGERY Left 06/06/2023 left FOOT TRANSMETATARSAL amputation; Surgeon: Jabari Hill DPM; Location: [facility] MAIN OR; Service: Podiatry HAMMER TOE SURGERY Left 06/15/2022 Left foot Correction of hammer toe deformity with arthroplasty second and third toe. Left foot Application of skin graft substitute.; Surgeon: Jabari Hill DPM; Location: [facility] OR; Service: Podiatry HIP SURGERY [...] IR REVAS FEM POP ART UNILAT W FLASK CLEANER 03/13/2022 IR REVAS FEM POP ART UNILAT W FLASK CLEANER 03/13/2022 Kashif Wong MD [facility] IR IR REVAS FEM POP ART UNILAT W FLASK CLEANER 06/02/2023 IR REVAS FEM POP ART UNILAT W FLASK CLEANER 06/02/2023 Vishnu Penn MD [facility] IR IR REVAS FEM POP ART UNILAT W FLASK CLEANER 12/28/2024 IR REVAS FEM POP ART UNILAT W FLASK CLEANER 12/28/2024 Vishnu Penn MD [facility] IR IR [...] 05/19/2023 .; Surgeon: Jabari Hill DPM; Location: [facility]; Service: Orthopedics SKIN GRAFT Left 06/15/2022 Surgeon: Jabari Hill DPM; Location: [facility]; Service: Podiatry SKIN GRAFT Left 12/23/2022 . ; Surgeon: Jabari Hill DPM; Location: [facility]; Service: Orthopedics SKIN GRAFT 02/10/2023 Surgeon: Jabari Hill DPM; Location: [facility]; Service: Orthopedics TOE AMPUTATION Left 02/10/2023 Left foot second toe amputation, Left foot excisional debridement with application of skin graft substitute; Surgeon: Jabari Hill DPM; Location: [facility]; Service: Orthopedics TOE AMPUTATION Left 05/19/2023 Left foot, amputation of third toe. Left foot, wound debridment application. Left foot, skin graft substitute. Left foot wound debridment closure.; Surgeon: Jabari Hill DPM; Location: [facility]; Service: Orthopedics Current Outpatient [...] days. fluticasone propionate (FLONASE) 50 mcg/actuation Nasl [place], Suspension 1 spay each nostril twice daily 1 Each 3 gabapentin (NEURONTIN) 300 mg [...] Tablet Take 1 Tablet by mouth daily. pantoprazole (PROTONIX) 40 mg Oral Tablet, Delayed [...] MEDICINE -- (Patient not taking: Reported on 02/07/2025) hydrOXYzine (ATARAX) 25 mg Oral Tablet 1 tab(s) orally 2 times a day for 30 days (Patient not taking: Reported on 02/07/2025) nitroGLYCERIN (NITROSTAT) 0.4 mg SL Tablet, Sublingual Place 0.4 mg under the tongue every 5 minutes as needed for Chest pain. oxyCODONE-acetaminophen (PERCOCET) 5-325 mg Oral Tablet Take 1-2 Tablets by mouth every 4 hours as needed for Acute Pain (R52). (Patient not taking: Reported on 02/07/2025) 30 Tablet 0 oxymetazoline (AFRIN) 0.05 % Nasl [place], Non-Aerosol 1 [place] by Nasal route as needed for Congestion (30 min. prior to HBO2-PRN, difficulty clearing ears.). (Patient not taking: Reported on 02/07/2025) No current facility-administered medications for this encounter. Allergies Allergen Reactions Atorvastatin Myalgia Ezetimibe Myalgia Rosuvastatin Myalgia Simvastatin Myalgia Fxpvnuj-Guh-Obz Reductase Inhibitors Other (See Comments) Joint pain Codeine Itching nausea Hydrocodone Itching nausea Phenergan [Promethazine] Other (See Comments) Made legs restless And also very sleepy ROS See HPI for further details. Relevant review of systems otherwise negative. Physical Exam Vitals: 02/12/25 1458 BP: 96/65 Pulse: 68 Resp: 18 Temp: 97.8 ??F (36.6 ??C) TempSrc: Forehead Ulcer Progress and Procedure Please refer to the LDA for details of ulcer progress and procedure. Ulcer evaluated left posterior plantar heel to subcutaneous tissue No gross evidence of infection No abscess or sinus formation No fluctuance No malodor No ascending cellulitis or lymphangitis No gross necrosis of wound edges or base Wound bed appears viable Diminished pulses Assessment and Plan Ashley was seen today for wound check. Diagnoses and all orders for this visit: 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) - HI DEBRIDEMENT SUBCUTANEOUS TISSUE 1ST 20 SQ CM/< Stage III pressure ulcer of left heel (HCC) - [facility] - HI DEBRIDEMENT SUBCUTANEOUS TISSUE 1ST 20 SQ CM/< [...] were given 5. Follow- up 1 week No new Rx or orders this evaluation Sharp excisional debridement left heel utilizing curette down to and including subcutaneous tissue <20 sq cm with bleeding and subsequent hemostasis. Patient tolerated the procedure well. No significant episodes of pain. No adverse events. Daily dressing change Discussed the necessity of offloading the affected area to reduce pressure to allow for healing andat a minimum to reduce the possibility of progression of the ulcer. Advised patient that healing will not progress if the same pressures that caused the wound are allowed to continue unabated. Discussed measures to offload documented in this encounter Miscellaneous Notes * Patient Instructions - Balbina Tong RN - 02/12/2025 3:00 PM EDT HOME-CARE INSTRUCTIONS FOLLOWING YOUR [...] up in the [facility] [place] [address] Rodriguez Left heel- collagen, adaptic, 4x4, roll gauze, every other day. Left TMA site- paint with betadine daily. 01/08 [facility] has been contacted to obtain your wound [...] feel free to reach out to our dip unit operator, Hanna Riggs at [phone] for any discussion. WHO TO CALL FOR [...] immediate concern, press option #1. Office numbers: [phone] Bailey [phone] [facility] [phone] Our offices do not have an on-call provider. If you have emergent needs after hours please contact your primary care provider. You may also utilize the [facility] Nurse NOW Helpline: 2-022-5IRW-NOW for after-hours needs to get in contact with a nurse for assistance. documented in this encounter Plan of Treatment Upcoming Encounters Date Type Department Care Team (Late st Contact Info) Description 03/26/2025 1:15 PM EDT Appointment [facility] [address] [place] [address] Cristi Pelletier, DPJeremi [address] [address] 03/27/2025 8:00 AM EDT Office Visit [facility] [address] [facility] [address] [place] [address] Vishnu Penn MD [address] [facility] [address] [place], [place] [id number] 05/10/2025 10:20 AM EDT Office Visit [facility] [address] [facility] [address] [place] [phone] JanuaryNette GUIDANCE SECRETARY [address] [facility] [address] [place] [address] 11/12/2025 1:30 PM EST Appointment [facility] [address] [facility] [address] [place] [phone] MayNette GUIDANCE SECRETARY [address] [facility] [address] [address] 11/12/2025 2:40 PM EST Office Visit [facility] [address] [facility] [address] [place] [address] JanuaryNette GUIDANCE SECRETARY [address] [place] [address] [address] [place] [phone] Scheduled Orders Name Type Priority Associated Diagnoses Orde r Schedule HI DEBRIDEMENT SUBCUTANEOUS TISSUE 1ST 20 SQ CM/< HI Charge Routine 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) Stage III pressure ulcer of left heel (HCC) Ordered: 02/15/2025 documented as of this encounter Goals Goal [...] as of this encounter Visit Diagnoses Diagnosis 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)- Primary Stage III pressure ulcer of left heel (HCC) Pressure ulcer, heel documented in this encounter Administered Medications Inactive Administered Medications - up to 1 most recent administrations Medication Order MAR Action Action Date Dose Rate Site lidocaine (XYLOCAINE) 5 % ointment Topical, ONCE, 1 dose, On Wed02/12/25 at 1515, Application site: left foot Given 02/12/2025 3:13 PM EDT documented in this encounter Orders Medications Ordered That Daniel ht Not Have Been Administered Count Last Ordered Date First Ordered Date lidocaine (XYLOCAINE) 5 % ointment 1 2024 Nursing Count Last Ordered Date First Orde red Date [facility] PRIMARY DRESSING 1 02/13/2025 documented in this encounter Care Teams Finger Buffs Assembler Relationship Specialty Start Date End Date William Hunter MD [address] [place] [address] [address] [place] [id number] PCP - General Internal Medicine-Adolescent Medicine 05/28/23 González Gotti MD [address] [place] [address] [place]AT[place] [id number] Consulting Physician Internal Medicine - Clinical Cardiac Electrophysiology 04/05/17 Cristi Cleaning MD [address] [place] [address] DR MARTINEZ [place] [phone] Physician Internal Medicine-Cardiovascular Disease 04/05/17 documented as of this encounter
--- OUTSIDE RECORDS SUMMARY | 2025-02-20 12:55 | XMS_ITS | Encounter Summary ---
Author Organization [place] [address] Care Team Providers Care Casting Room Operator Name Role Phone González Gotti MD Unavailable [phone] Cristi Cleaning MD Unavailable [phone] William Hunter MD Primary Care Provider [phone] Reason for Referral * Vascular Imaging (Routine) - Closed Specialty Diagnoses / Procedures Referred By Brian villavicencio Referred To Contact Radiology Diagnoses PAD (peripheral artery disease) Peripheral vascular angioplasty status with implants and grafts Procedures [facility] LOWER EXTREMITY ARTERIAL DUPLEX COMPLETE Nette Jalloh APRN [address] [facility] [address] [place] [address] Phone: tel: fax: Referral ID Status Reason Start Date Expiration Date Visits Re quested Visits Authorized [id number] Closed 02/07/2025 02/07/2026 1 1 Reason for Visit * Vascular Imaging (Routine) - Closed Specialty Diagnoses / Procedures Referred By Brian villavicencio Referred To Contact Radiology Diagnoses PAD (peripheral artery disease) Peripheral vascular angioplasty status with implants and grafts Procedures [facility] LOWER EXTREMITY ARTERIAL DUPLEX COMPLETE Nette Jalloh APRN [address] [facility] [address] [place] [address] Phone: tel: fax: Referral ID Status Reason Start Date Expiration Date Visits Re quested Visits Authorized [id number] Closed 02/07/2025 02/07/2026 1 1 Encounter Details Date Type Department Care Team (Latest Contact Info) Description 02/20/2025 12:55 PM EDT - 02/20/2025 11:59 PM EDT Hospital Encounter [facility] [address] [place] [address] January, Nette Rand, POWERHOUSE TENDER [address] [facility] [place] [address] PAD (peripheral artery disease); Peripheral vascular angioplasty status with implants and grafts Discharge Disposition: Home or Self Care Social History Tobacco Use Types Packs/Day Years Used Date Smoking Tobacco: Former Cigarettes 0.3 40 0 12/26/1981 - 12/26/2021 Passive Smoke Exposure: Past Smokeless Tobacco: Never Alcohol Use Standard Drinks/Week Comments Not Currently 0 (1 standard drink = 0.6 oz pur e alcohol) [facility] Utilities Answer Date Recorded In the past 12 months has [employer], gas, oil, or water [employer] threatened to shut off services in your home? No 12/28/2024 Overall Financial Resource Strain (CARDIA) Answe r Date Recorded How hard is it for you to pa y for the very basics like food, housing, medical care, and heating? Not hard at all 12/28/2024 PHQ-2 Answer Date Recorded PHQ-2 Total Score 0 12/28/2024 [facility] - Occupational Stress Questionnaire Answer Date Recorded [...] things needed for daily living? No 05/29/2023 [facility] IP Transportation Answer D ate Recorded In [...] on file documented as of this encounter Functional Status * Is the person deaf or does he/she have serious difficulty hearing? Answer Date of Assessment Author No 06/11/2023 2:58 PM EDT Redd Bates RN * Is the person blind or does he/she have serious difficulty seeing even when wearing glasses? Answer Date of Assessment Author No 06/11/2023 2:58 PM EDT eRdd Bates RN * Does this person have [...] Entry Date Author No 06/11/2023 2:58 PM RACHELLT Redd Bates RN documented in this encounter [...] by mouth 2 times daily. 10/03/2024 evolocumab (REPVALERY GREEN) 140 mg/mL SubQ Pen Injector Subcutaneous (Inject under the skin) 140 mg every 14 days. fluticasone propionate (FLONASE) 50 mcg/actuation Nasl [place], Suspension 1 spay each nostril twice daily [...] EDT 06/11/2023 oxymetazoline (AFRIN) 0.05 % Nasl [place], Non-Aerosol 1 [place] by Nasal route as needed for Congestion [...] or Self Care documented in this encounter Plan of Treatment Upcoming Encounters Date Type Department Care Team (Late st Contact Info) Description 03/26/2025 1:15 PM EDT Appointment [facility] [address] [place] [address] Cristi Pelletier, DPJeremi [address] [phone] 03/27/2025 8:00 AM EDT Office Visit [facility] [address] [place] [address] [place] [phone] Vishnu Penn MD [address] [place] [phone] 05/10/2025 10:20 AM EDT Office Visit [facility] [address] [place] [address] [place] [phone] Nette Jalloh APRN [address] [place] [address] 11/12/2025 1:30 PM EST Appointment [facility] [address] [facility] [address] [place] [address] Nette Jalloh APRN [address] [facility] [address] [place] [address] 11/12/2025 2:40 PM EST Office Visit [facility] [address] [facility] [address] [place] [address] Nette Jalloh APRN [address] [facility] [address] [place], [place] [phone] documented as of this encounter Goals Goal Patient Goal Type Associated Problems Recent Progress Patient-Stated? Author Wound Healing General On track(2024 4:27 PM EDT) Tsering Doran RN Note: Wound Care Goals LEFT HEEL [...] tibial pulses. documented as of this encounter Procedures Procedure Name Priority Date/Time Associated Diagnosis Comments [facility] LOWER EXTREMITY ARTERIAL DUPLEX COMPLETE Routine 02/20/2025 2:08 PM EDT PAD (peripheral artery disease) Peripheral vascular angioplasty status with implants and grafts documented in this encounter Results * [facility] LOWER EXTREMITY ARTERIAL DUPLEX COMPLETE (02/20/2025 2:08 PM EDT) Anatomical Region Laterality Modality Vascular, Leg Electrocardiogra phy 02/20/2025 1:19 PM EDT Impressions 02/20/2025 2:26 PM EDT Conclusions * Right: * RODOLFO: 0.63 (DPA, distal CLINICAL MANAGER occluded) / TBI: 0, absent waveform. There is an occlusion of the distal posterior tibial artery. Dampened, biphasic flow of the proximal and mid posterior tibial artery. Mild to moderate plaque noted in the arteries of the right lower extremity. * Left: * RODOLFO: 1.29 (CLINICAL MANAGER) / TBI: 0, metatarsal amputation. 20-49 % stenosis of the profunda, 145 cm/s. There is an occlusion of the proximal anterior tibial artery and the mid peroneal artery. Mild to moderate plaque noted in the arteries of the left lower extremity. Narrative Procedure Note Eusebio De Leon MD - 02/20/2025 IMPRESSION Conclusions * Right: * RODOLFO: 0.63 (DPA, distal CLINICAL MANAGER occluded) / TBI: 0, absent waveform. Thereis an occlusion of the distal posterior tibial artery. Dampened, biphasicflow of the proximal and mid posterior tibial artery. Mild to moderate plaquenoted in the arteries of the right lower extremity. * Left: * RODOLFO: 1.29 (CLINICAL MANAGER) / TBI: 0, metatarsal amputation. 20-49 % stenosis ofthe profunda, 145 cm/s. There is an occlusion of the proximal anteriortibial artery and the mid peroneal artery. Mild to moderate plaque noted in the arteries of the left lower extremity. Nette Jalloh APRN IMG VASCULAR ORDERABLES Final R esult documented in this encounter Visit Diagnoses Diagnosis PAD (peripheral artery disease) Unspecified disorders of arteries and arterioles Peripheral vascular angioplasty status with implants and grafts documented in this encounter Care Teams Casting Room Operator Relationship Specialty Start Date End Date Besson, William A, MD [address] [place] [phone] PCP - General Internal Medicine-Adolescent Medicine 05/28/23 González Gotti MD [address] [place] [address] [address] [place] [id number] Consulting Physician Internal Medicine - Clinical Cardiac Electrophysiology 04/05/17 Cristi Cleaning MD [address] [place] [address] [place] [address] Physician Internal Medicine-Cardiovascular Disease 04/05/17 documented as of this encounter
--- OUTSIDE RECORDS SUMMARY | 2025-02-26 15:15 | XMS_ITS | Encounter Summary ---
Author Organization 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) Procedures [place] OFFICE/OUTPATIENT NEW MODERATE MDM 45 MINUTES Kirt Dolan DPM [address] [address] Phone: tel: fax: Vishnu Penn MD [address] [place] [address] [address] [place] [address] Phone: tel: fax: Referral ID Status Reason Start Date Expiration Date Visits Requested Visits Authorized [id number] Pending Review Specialty Services Required 02/26/2025 02/26/2026 1 1 Comments Recent RODOLFO's, established patient, claudication pain RLE * (Routine) - Pending Review Specialty Diagnoses / Procedures Referred By Contac t Referred To Contact Diagnoses Stage III pressure ulcer of left heel (HCC) Procedures [facility] PRIMARY DRESSING Kirt Dolan DPM [address] [place] [id number] Phone: tel: fax: Referral ID Status Reason Start Date Expiration Date V isits Requested Visits Authorized [id number] Pending Review 02/26/2025 02/26/2026 1 1 Reason for Visit * Reason Comments Wound Check * Consultation (Routine) - Authorization Not Needed Specialty Diagnoses / Procedures Referred By Brian t Referred To Contact Wound Care Diagnoses Wound Care Procedures [place] DEBRIDEMENT SUBCUTANEOUS TISSUE 1ST 20 SQ CM/< [place] DEBRIDEMENT MUSCLE &/FASCIA 1ST 20 SQ CM/< [place] DEBRIDEMENT BONE 1ST 20 SQ CM/< [place] DEBRIDEMENT SUBCUTANEOUS TISSUE EA ADDL 20 SQ CM [place] DEBRIDEMENT MUSCLE &/FASCIA EA ADDL 20 SQ CM [place] DEBRIDEMENT BONE EACH ADDITIONAL 20 SQ CM [place] DEBRIDEMENT OPEN WOUND FIRST 20 SQ CM/< [place] DEBRIDEMENT OPN WND EA ADDL 20 SQ CM/PRT THEREOF [facility] [place] [address] [address] [facility] [place] [address] Phone: tel: fax: Referral ID Status Reason Start Date Expiration Date Visits Requested Visits Authorized [id number] Authorization Not Needed Specialty Services Required 5 01/08/2026 99 99 Encounter Details Date Type Department Care Team (Late st Contact Info) Description 02/26/2025 3:15 PM EDT - 02/26/2025 11:59 PM EDT Hospital Encounter [facility] [address] [place] [address] Kirt Dolan DPM [address] [place] [id number] Ischemic ulcer of left foot with fat [...] drink = 0.6 oz pur e alcohol) [facility] Utilities Answer Date Recorded In [...] Date Recorded PHQ-2 Total Score 0 12/28/2024 [facility] of Occupat ional Health - Occupational Stress [...] things needed for daily living? No 05/29/2023 [facility] IP Transportation Answer D ate Recorded In [...] days. 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 Cleaning STEMI (ST elevation myocardial infarction) ([facility]) STEMI with 3 NORI to RCA Systolic heart failure ([facility]) 02/2017 ECHO, EF 25% Patient Active Problem List Diagnosis Date Noted Claudication of right lower extremity 02/26/2025 Stage III pressure ulcer of left heel ([facility]) 01/09/2025 Critical limb ischemia of both lower extremities ([facility]) 12/28/2024 DVT, lower extremity, distal, acute, left ([facility]) 12/27/2024 Former smoker-quit 202112/08/2024 Abnormal ankle brachial [...] situ 12/07/2023 Insomnia 12/07/2023 Kidney stone 12/07/2023 malt[place] current use of anticoagulant therapy 12/07/2023 Neuropathy 12/07/2023 Non-pressure chronic ulcer of skin of other sites with unspecified severity ([facility]) 12/07/2023 Palpitations 12/07/2023 Atrial fibrillation with rapid ventricular response ([facility]) 12/07/2023 Seasonal allergic rhinitis 12/07/2023 Sinusitis 12/07/2023 Stented coronary artery 12/07/2023 Typical angina 12/07/2023 Ventricular fibrillation (HCC) 12/07/2023 Ventricular fibrillation seen on testing and regulating technician ([facility]) 12/07/2023 Ventricular tachyarrhythmia (HCC) 12/07/2023 Failed flap [...] 03/05/2022 COPD (chronic obstructive pulmonary disease) ([facility]) HLD (hyperlipidemia) Hypertension Emphysema, unspecified CAD (coronary artery disease) Cardiac pacemaker History of cardiac cath Depression with anxiety Essential hypertension Chronic systolic heart failure ([facility]) Sinus node dysfunction ([facility]) Bradycardia Past Surgical History: Procedure Laterality Date CARDIAC CATHETERIZATION Right 03/23/2017 stent placed in right leg CARDIAC PACEMAKER PLACEMENT 11/05/2016 SJM Dual PPM COLONOSCOPY CORONARY ANGIOPLASTY WITH STENT PLACEMENT 06/2016 x3 DEBRIDEMENT Left 05/19/2023 .; Surgeon: Jabari Hill DPM; Location: [facility]; Service: Orthopedics FEMUR FRACTURE SURGERY Right right femur fx repair FOOT SURGERY FOOT SURGERY Left 12/23/2022 Left foot heel and second and third toe debridement with application of skin graft substitute. ; Surgeon: Jabari Hill DPM; Location: [facility]; Service: Orthopedics FOOT SURGERY Left 02/10/2023 Surgeon: Jabari Hill DPM; Location: [facility]; Service: Orthopedics FOOT SURGERY Left 06/06/2023 left FOOT TRANSMETATARSAL amputation; Surgeon: Jabari Hill DPM; Location: [facility]; Service: Podiatry HAMMER TOE SURGERY Left 06/15/2022 Left foot Correction of hammer toe deformity with arthroplasty second and third toe. Left foot Application of skin graft substitute.; Surgeon: Jabari Hill DPM; Location: [facility]; Service: Podiatry HIP SURGERY [...] IR REVAS FEM POP ART UNILAT W FOOD PREP WORKER 03/13/2022 IR REVAS FEM POP ART UNILAT W FOOD PREP WORKER 03/13/2022 Kashif Wong MD EDG IR IR REVAS FEM POP ART UNILAT W FOOD PREP WORKER 06/02/2023 IR REVAS FEM POP ART UNILAT W FOOD PREP WORKER 06/02/2023 Vishnu Penn MD EDG IR IR REVAS FEM POP ART UNILAT W FOOD PREP WORKER 12/28/2024 IR REVAS FEM POP ART UNILAT W FOOD PREP WORKER 12/28/2024 Vishnu Penn MD EDG IR IR [...] 05/19/2023 .; Surgeon: Jabari Hill DPM; Location: [facility]; Service: Orthopedics SKIN GRAFT Left 06/15/2022 Surgeon: Jabari Hill DPM; Location: [facility]; Service: Podiatry SKIN GRAFT Left 12/23/2022 . ; Surgeon: Jabari Hill DPM; Location: [facility]; Service: Orthopedics SKIN GRAFT 02/10/2023 Surgeon: Jabari Hill DPM; Location: [facility]; Service: Orthopedics TOE AMPUTATION Left 02/10/2023 Left foot second toe amputation, Left foot excisional debridement with application of skin graft substitute; Surgeon: Jabari Hill DPM; Location: [facility]; Service: Orthopedics TOE AMPUTATION Left 05/19/2023 Left foot, amputation of third toe. Left foot, wound debridment application. Left foot, skin graft substitute. Left foot wound debridment closure.; Surgeon: Jabari Hill DPM; Location: [facility]; Service: Orthopedics Family History [...] days. fluticasone propionate (FLONASE) 50 mcg/actuation Nasl Blue, Suspension 1 spay each nostril twice daily [...] Tablet 0 oxymetazoline (AFRIN) 0.05 % Nasl Blue, Non-Aerosol 1 Blue by Nasal route as needed for Congestion [...] days. fluticasone propionate (FLONASE) 50 mcg/actuation Nasl Blue, Suspension 1 spay each nostril twice daily [...] Tablet 0 oxymetazoline (AFRIN) 0.05 % Nasl Blue, Non-Aerosol 1 Blue by Nasal route as needed for Congestion [...] Myalgia Ezetimibe Myalgia Rosuvastatin Myalgia Simvastatin Myalgia Ayghzcr-Wrc-Ket Reductase Inhibitors Other (See Comments) Joint pain [...] Results Component Value Date SEDRATE 17 05/28/2023 NV US LOWER EXTREMITY ARTERIAL DUPLEX COMPLETE: 02/20/2025 Result Text IMPRESSION Conclusions * Right: * RODOLFO: 0.63 (DPA, distal FOOD PREP WORKER occluded) / TBI: 0, absent waveform. There is an occlusion of the distal posterior tibial artery. Dampened, biphasic flow of the proximal and mid posterior tibial artery. Mild to moderate plaque noted in the arteries of the right lower extremity. * Left: * RODOLFO: 1.29 (FOOD PREP WORKER) / TBI: 0, metatarsal amputation. 20-49 % [...] of artery of extremity with ulceration ([facility]) - [facility] REFERRAL TO VASCULAR SURGERY Stage III pressure ulcer of left heel (HCC) - [facility] PRIMARY DRESS[facility] PAD (peripheral artery disease) [...] feel free to reach out to our unit director, Hanna Riggs at [phone] for any discussion. WHO TO CALL FOR PROBLEMS: Please call the OP wound care center with any problems or issues you may have after your visit or though the week. Each patient is assigned a correctional case manager who can assist with issues you may be having. Individual office numbers are listed below. Press 1 for immediate or schedule needs, press 2 for the nursing line. The nurse line is for non-emergent needs and will be answered within 24 hours duringbusiness days. If you have a more immediate concern, press option #1. Office numbers: [phone] [place] [place]jafn-[phone] [place]- [phone] Our offices do not have an on-call provider. If you have emergent needs after hours please contact your primary care provider. You may also utilize the [place] Nurse NOW Helpline: [phone] for after-hours needs to get in contact [...] Appointment [facility] [address] [place] [address] Cirsti Pelletier, DPM [address] [address] 03/27/2025 8:00 AM EDT Office Visit [facility] [address] [facility] [address] [place] [id number] Vishnu Penn MD [address] [place] [address] 05/10/2025 10:20 AM EDT Office Visit [facility] [address] [facility] [address] [facility] [address] [place] [address] MayNette MAXILLOFACIAL SURGEON [address] [place] [address] [facility] [address] [place] [address] 11/12/2025 1:30 PM EST Appointment [facility] VASCULAR [address] [facility] [address] [place] [id number] Nette Jalloh MAXILLOFACIAL SURGEON [address] [place] [address] [address] 11/12/2025 2:40 PM EST Office Visit [facility] [address] [facility] [address] [place] [address] JanuaryNette MAXILLOFACIAL SURGEON [address] [place] [address] [address] [place] [id number] Scheduled Referrals Name Type Priority Associated Diagnoses [...] 02/26/2025 documented in this encounter Care Teams Manager Market Development Relationship Specialty Start Date End Date William Hunter MD [address] [place] [address] [place] [id number] PCP - General Internal Medicine-Adolescent Medicine 05/28/23 González Gotti MD [address] [place] [address] [place] [address] Consulting Physician Internal Medicine - Clinical Cardiac Electrophysiology 04/05/17 Cristi Cleaning MD [address] [place] [address] [place] [address] Physician Internal Medicine-Cardiovascular Disease 04/05/17 documented as of this encounter
--- OUTSIDE RECORDS SUMMARY | 2025-02-27 06:00 | XMS_ITS ---
Author Organization [facility] PE D RENEE Address [address] [place] [address] Care Team Providers Care Cemetery Laborer Name Role Phone William Hunter Primary Care Provider Sarah Wing Unavailable [phone] Allergies Allergen (clinical drug ingredient) Drug/Non Drug Allergy documented on EMR Reaction Allergy Type Onset Date Status Substance with 0-wgtxbhp-7-methylg lutaryl-coenzyme A reductase inhibitor mechanism of action (substance) Statins couldnt walk Drug Allergy Active codeine Codeine Unknown Drug Allergy Active hydrocodone HYDROcodone itchy and nausea Drug Allergy Active Results Component Value Reference Range Notes Mammogram : Bilateral Reviewed date:03/21/2025 09:46:46 AM Interpretation: Performing Lab: Notes/Report: Reason For Referral Reason cologuard Diagnosis 1 Encounter for screen ing for malignant neoplasm of colon (Z12.11) Referral Organization [facility] DRE HARTMAN Referring Provider First Name Sarah Referring Provider Last Name Mecca Referring Provider Speciality Family Pra ctice Referred Organization Cologuard Referred Address [facility], Referred Provider Specialty Diagnostic L aboratory General Vijaya Garcia 2024 04:44:43 PM >sent to Cologuard Referral Priority Routine Reason mammogram [facility] Diagnosis 1 Visit for screening mammogram (Z12.31) Referral Organization [facility] DRE HARTMAN Referring Provider First Name Sarah Referring Provider Last Name Mecca Referring Provider Speciality Family Pra ctice Referred Organization [facility] Referred Address [address] [facility] [address] [place], [place],[address],[place] Referred Provider Specialty Diagnostic R adiology General Notes Ariel Gomezie 2024 03:49:33 PM >sent to [facility] to schedule appt Referral Priority Routine REASON [...] review and pick correct strength-formula tion from IMGuest options. If intended option is not shown, discontinue and re-order from Quick Search* Active Nitroglycerin 0.4 MG 1 tab(s) sublingually every 5 minutes prn Active rOPINIRole HCl 0.25 MG 1 tab(s) orally a t bedtime Active Metoprolol Succinate ER 100 MG TAKE 1 AND 1/2 TABLET BY MOUTH TWICE DAILY; Duration: 30 days Active hydroCHLOROthiazide 25 MG 1 tab(s) orally every other day Active Gabapentin 300 MG 1 cap(s) orally 2 times a day; Duration: 30 day(s) 08/29/2024 Active hydrOXYzine HCl 25 MG 1 tab(s) orally 2 times a day; Duration: 30 days 06/24/2023 Active Eliquis 5 mg TAKE ONE TABLET BY MOUTH TWICE DAILY; Duration: 30 Active amLODIPine Besylate 5 MG 1 tab(s) orally once a day; Duration: 30 day(s) Active RANEXA 1000 MG 1 [...] 02/27/2025 Encounters Encounter Location Date Provider Diagnosis [facility] PED RENEE [address] [place], [place] [address] 02/27/2025 Sarah Wing Routine medical exam Z00.00 ; Coronary artery disease involving [place] coronary artery of [place] heart without angina pectoris I25.10 ; Gastroesophageal reflux disease without esophagitis K21.9 ; Chronic systolic heart failure I50.22 ; Peripheral arterial disease I73.9 ; Paroxysmal atrial fibrillation I48.0 ; Hyperlipemia E78.5 ; 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 [...] acceptable Pending Test Test Name Order Date LIPID PANEL, STANDARD (7600) 02/27/2025 COMPREHENSIVE METABOLIC PANEL (72281) CBC (INCLUDES DIFF/PLT) (6399) 5 Referrals Referral Date Details 02/27/2025 02/27/2025, colog[place]ie cast, [employer], 02/27/2025 02/27/2025, mammogra archie [facility], [address] [facility], [place], [address], Next Appt Details Follow Up: 6 Months,prn, [place] son: Progress Notes * Oz GLEZIdaliaB:1965 (59 yo F)Acc No.[id number]:02/27/2025 Progress Notes Patient: Ashley NICOLE Provider: Archie Wing APRN :1965 A ge:59 Y S ex:Female Date:02/27/2025 Address:[place], [id number] Pcp:William Hunter Subjective: * Chief Complaints: * [...] vaccines UTD. No previous c-scope, agrees to [facility], has been sent several times in the [...] Procedure: M I 06/2016, chest pain 2006, [facility]- defibrillator shock, foot infection 12/2021, [place] 05/2023, [facility]- blood cot 12/2024. * Family History: F [...] 2 . C oronary artery disease involving [place] coronary artery of [place] heart without angina pectoris - I25.10 3 [...] for screening mammogram - Z12.31 ?12. B NE 26.0-26.9,adult - Z68.26 Plan: * Treatment: 2. C oronary artery disease involving [place] coronary artery of [place] heart without angina pectoris Notes: No acute [...] STANDARD (7600) L AB: COMPREHENSIVE METABOLIC PANEL (66797) Notes: On repatha, tolerates well. WIll check fasting lipid panel 8. L oscar term (current) use of anticoagulants L AB: CBC (INCLUDES DIFF/PLT) (6399) 9. E ssential hypertension Notes: Blood pressure at goal. 10. E ncounter for screening for malignant neoplasm of colon Referral To: Reason:cologuard 11. V isit for screening mammogram L AB: LIPID PANEL, STANDARD (7600) L AB: COMPREHENSIVE METABOLIC PANEL (76709) L AB: CBC (INCLUDES DIFF/PLT) (6399) I maging: Mammogram : Bilateral * ? Referral To: ?Reason:mammogram [facility] 12.?BMI 26.0-26.9,adult? Notes: BMI acceptable?? * Follow Up: 6 Months,prn * * Sign off status: Completed true * Provider: Archie Wing APRN Date: 0 02/27/2025 Generated for Zuleima crockett/Joe/Barbaraitting on: 0 03/23/2025 09:39 AM EDT History and Physical Notes * HPI [...] vaccines UTD. No previous c-scope, agrees to [place], has been sent several times in the [...] Referred Provider Not es 02/27/2025 Sarah Wing [place] 02/27/2025 Sarah Wing , mammogram [facility]
--- OUTSIDE RECORDS SUMMARY | 2025-03-12 13:53 | XMS_ITS | Encounter Summary ---
Author [place] [address] Care Team Providers Care Engrosser Name Role Phone González Gotti MD Unavailable [phone] Cristi Cleaning MD Unavailable [phone] William Hunter MD Primary Care Provider [phone] Reason for Referral * In Office Procedure (Routine) - Pending Review Specialty Diagnoses / Procedures Referred By Contac t Referred To Contact Diagnoses Stage III pressure ulcer of left heel (HCC) 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) PAD (peripheral artery disease) Procedures MT DEBRIDEMENT SUBCUTANEOUS TISSUE 1ST 20 SQ CM/< Kirt Dolan DPM [address] [place] [address] Phone: tel: fax: Referral ID Status Reason Start Date Expiration Date V isits Requested Visits Authorized [id number] Pending Review 03/12/2025 03/12/2026 1 1 * (Routine) - Pending Review Specialty Diagnoses / Procedures Referred By Contac t Referred To Contact Diagnoses Stage III pressure ulcer of left heel (HCC) Procedures [facility] Kirt Dolan DPM [address] [place] [id number] Phone: tel: fax: Referral ID Status Reason Start Date Expiration Date V isits Requested Visits Authorized [id number] Pending Review 03/12/2025 03/12/2026 1 1 Reason for Visit * Reason Comments Non-healing Wound * Consultation (Routine) - Authorization Not Needed Specialty Diagnoses / Procedures Referred By Brian t Referred To Contact Wound Care Diagnoses Wound Care Procedures MT DEBRIDEMENT SUBCUTANEOUS TISSUE 1ST 20 SQ CM/< MT DEBRIDEMENT MUSCLE &/FASCIA 1ST 20 SQ CM/< MT DEBRIDEMENT BONE 1ST 20 SQ CM/< MT DEBRIDEMENT SUBCUTANEOUS TISSUE EA ADDL 20 SQ CM MT DEBRIDEMENT MUSCLE &/FASCIA EA ADDL 20 SQ CM MT DEBRIDEMENT BONE EACH ADDITIONAL 20 SQ CM MT DEBRIDEMENT OPEN WOUND FIRST 20 SQ CM/< MT DEBRIDEMENT OPN WND EA ADDL 20 SQ CM/PRT THEREOF [facility] [place] [address] [facility] [place] [address] Phone: tel: fax: Referral ID Status Reason Start Date Expiration Date Visits Requested Visits Authorized [id number] Authorization Not Needed Specialty Services Required 5 01/08/2026 99 99 Encounter Details Date Type Department Care Team (Late st Contact Info) Description 03/12/2025 1:53 PM EDT - 03/12/2025 11:59 PM EDT Hospital Encounter [facility] [address] [place] [address] Kirt Dolan DPM [address] [place] [id number] Atherosclerosis of artery of extremity with ulceration [...] drink = 0.6 oz pur e alcohol) [facility] Utilities Answer Date Recorded In the past 12 months has e [employer], gas, oil, or water company threatened to shut off services in your home? No 12/28/2024 Overall Financial Resource Strain (CARDIA) Answe r Date Recorded How hard is it for you to pa y for the very basics like food, housing, medical care, and heating? Not hard at all 12/28/2024 PHQ-2 Answer Date Recorded PHQ-2 Total Score 0 12/28/2024 [facility] - Occupational Stress Questionnaire Answer [...] things needed for daily living? No 05/29/2023 [facility] IP Transportation Answer D ate Recorded [...] days. fluticasone propionate (FLONASE) 50 mcg/actuation Nasl [place], Suspension 1 spay each nostril twice daily [...] EDT 06/11/2023 oxymetazoline (AFRIN) 0.05 % Nasl [place], Non-Aerosol 1 [place] by Nasal route as needed for Congestion [...] Bradycardia CAD (coronary artery disease) Cardiac pacemaker [facility] Dual PPM 11/05/2016 - Dr. Cleaning Chronic systolic heart failure ([facility]) COPD (chronic obstructive pulmonary disease) ([facility]) Depression with anxiety Emphysema, unspecified ([facility]) Essential hypertension Headache Heartburn History of cardiac cath 03/23/2017 Stent placed in Right leg 03/23/2017 HLD (hyperlipidemia) Hypertension IN (myocardial infarction) ([facility]) 06/2016 Pacemaker Post-operative nausea and vomiting Sinus node dysfunction ([facility]) [facility] Dual PPM 11/05/2016 - Dr. Cleaning STEMI (ST elevation myocardial infarction) ([facility]) STEMI with 3 NORI to RCA Systolic heart failure ([facility]) 02/2017 ECHO, EF 25% Patient Active Problem List Diagnosis Date Noted Claudication of right lower extremity 02/26/2025 Pressure ulcer of left heel, stage 4 ([facility]) 01/09/2025 Critical limb ischemia of both lower extremities (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) 12/07/2023 Palpitations 12/07/2023 Atrial fibrillation with rapid ventricular response ([facility]) 12/07/2023 Seasonal allergic rhinitis 12/07/2023 Sinusitis 12/07/2023 Stented coronary artery 12/07/2023 Typical angina 12/07/2023 Ventricular fibrillation ([facility]) 12/07/2023 Ventricular fibrillation seen on bus monitor ([facility]) 12/07/2023 Ventricular tachyarrhythmia ([facility]) 12/07/2023 Failed flap 06/28/2023 Skin flap necrosis ([facility]) 06/28/2023 Atherosclerosis of artery of extremity with ulceration ([facility]) 06/02/2023 PAD (peripheral artery disease) 06/01/2023 S/P foot surgery 06/01/2023 Cellulitis of left lower extremity 05/28/2023 Open wound of left foot 04/26/2023 Hammertoe of left foot 06/08/2022 Pain in left foot 06/08/2022 Gangrene of left foot ([facility]) 06/08/2022 Vaping nicotine dependence, non-tobacco product 03/05/2022 [...] 05/19/2023 .; Surgeon: Jabari Hill DPM; Location: [facility] OR; Service: Orthopedics FEMUR FRACTURE SURGERY Right right femur fx repair FOOT SURGERY FOOT SURGERY Left 12/23/2022 Left foot heel and second and third toe debridement with application of skin graft substitute. ; Surgeon: Jabari Hill DPM; Location: [facility]; Service: Orthopedics FOOT SURGERY Left 02/10/2023 Surgeon: Jabari Hill DPM; Location: [facility]; Service: Orthopedics FOOT SURGERY Left 06/06/2023 left FOOT TRANSMETATARSAL amputation; Surgeon: Jabari Hill DPM; Location: [facility] MA[facility] OR; Service: Podiatry HAMMER TOE SURGERY Left 06/15/2022 Left foot Correction of hammer toe deformity with arthroplasty second and third toe. Left foot Application of skin graft substitute.; Surgeon: Jabari Hill DPM; Location: [facility]; Service: Podiatry HIP SURGERY [...] IR REVAS FEM POP ART UNILAT W HUMAN SERVICE WORKER 03/13/2022 IR REVAS FEM POP ART UNILAT W HUMAN SERVICE WORKER 03/13/2022 Kashif Wong MD EDG IR IR REVAS FEM POP ART UNILAT W HUMAN SERVICE WORKER 06/02/2023 IR REVAS FEM POP ART UNILAT W HUMAN SERVICE WORKER 06/02/2023 Vishnu Penn MD EDG IR IR REVAS FEM POP ART UNILAT W HUMAN SERVICE WORKER 12/28/2024 IR REVAS FEM POP ART UNILAT W HUMAN SERVICE WORKER 12/28/2024 Vishnu Penn MD EDG IR [...] 05/19/2023 .; Surgeon: Jabari Hill DPM; Location: [facility]; Service: Orthopedics SKIN GRAFT Left 06/15/2022 Surgeon: Jabari Hill DPM; Location: [facility]; Service: Podiatry SKIN GRAFT Left 12/23/2022 . ; Surgeon: Jabari Hill DPM; Location: [facility]; Service: Orthopedics SKIN GRAFT 02/10/2023 Surgeon: Jabari Hill DPM; Location: [facility]; Service: Orthopedics TOE AMPUTATION Left 02/10/2023 Left foot second toe amputation, Left foot excisional debridement with application of skin graft substitute; Surgeon: Jabari Hill DPM; Location: [facility]; Service: Orthopedics TOE AMPUTATION Left 05/19/2023 Left foot, amputation of third toe. Left foot, wound debridment application. Left foot, skin graft substitute. Left foot wound debridment closure.; Surgeon: Jabari Hill DPM; Location: [facility]; Service: Orthopedics Family History [...] days. fluticasone propionate (FLONASE) 50 mcg/actuation Nasl [place], Suspension 1 spay each nostril twice daily [...] Tablet 0 oxymetazoline (AFRIN) 0.05 % Nasl [place], Non-Aerosol 1 [place] by Nasal route as needed for Congestion [...] days. fluticasone propionate (FLONASE) 50 mcg/actuation Nasl [place], Suspension 1 spay each nostril twice daily [...] Tablet 0 oxymetazoline (AFRIN) 0.05 % Nasl [place], Non-Aerosol 1 [place] by Nasal route as needed for Congestion [...] days. fluticasone propionate (FLONASE) 50 mcg/actuation Nasl [place], Suspension 1 spay each nostril twice daily [...] Myalgia Ezetimibe Myalgia Rosuvastatin Myalgia Simvastatin Myalgia Muxsruj-Jji-Cwf Reductase Inhibitors Other (See Comments) Joint pain [...] * Right: * RODOLFO: 0.63 (DPA, distal HUMAN SERVICE WORKER occluded) / TBI: 0, absent waveform. There is an occlusion of the distal posterior tibial artery. Dampened, biphasic flow of the proximal and mid posterior tibial artery. Mild to moderate plaque noted in the arteries of the right lower extremity. * Left: * RODOLFO: 1.29 (HUMAN SERVICE WORKER) / TBI: 0, metatarsal amputation. 20-49 [...] artery of extremity with ulceration (HCC) - MT DEBRIDEMENT SUBCUTANEOUS TISSUE 1ST 20 SQ CM/< Stage III pressure ulcer of left heel (HCC) - [facility] - MT DEBRIDEMENT SUBCUTANEOUS TISSUE 1ST 20 SQ CM/< PAD (peripheral artery disease) - MT DEBRIDEMENT SUBCUTANEOUS TISSUE 1ST 20 SQ CM/< [...] TMA site- paint with betadine daily. 01/08 [facility] [employer] [employer] has been contacted to obtain [...] free to reach out to our community service officer, Hanna Riggs at [phone] for any discussion. WHO TO CALL FOR [...] immediate concern, press option #1. Office numbers: [phone] Ft. [phone] [facility] [phone] Our offices do not have an on-call provider. If you have emergent needs after hours please contact your primary care provider. You may also utilize the [place] Nurse NOW Helpline: [phone] for after-hours needs to get in contact [...] Info) Description 03/26/2025 1:15 PM EDT Appointment [facility] [address] [place] [address] Cristi Pelletier, DPM [address] [phone] 03/27/2025 8:00 AM EDT Office Visit [facility] [address] [place] [address] [place] [phone] Vishnu Penn MD [address] [place] [address] [phone] 05/10/2025 10:20 AM EDT Office Visit [facility] [address] [place] [address] [address] [place] [address] Nette Jalloh APRN [address] [place] [address] [phone] 11/12/2025 1:30 PM EST Appointment [facility] [address] [place] [address] [address] [place] [address] Nette Jalloh APRN [address] [place] [address] [address] 11/12/2025 2:40 PM EST Office Visit [facility] [address] [place] [address] May, Nette Radn HOSPICE/HOME HEALTH AIDE [address] [place] [address] Scheduled Orders Name Type Priority Associated Diagnoses Orde r Schedule MT DEBRIDEMENT SUBCUTANEOUS TISSUE 1ST 20 SQ CM/< MT Charge Routine Stage III pressure ulcer of left heel (HCC) 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) PAD (peripheral artery disease) Ordered: 03/12/2025 documented as of this encounter Goals Goal Patient Goal Type Associated Problems Recent Progress Patient-Stated? Author Wound Healing General On track(2024 4:27 PM EDT) Tsering Doran, ROSANNE Note: Wound Care Goals LEFT HEEL Patient [...] red Date [facility] 1 03/12/2025 documented in this encounter Care Teams Engrosser Relationship Specialty Start Date End Date William Hunter MD [address] [place] [id number] PCP - General Internal Medicine-Adolescent Medicine 05/28/23 González Gotti MD [address] [place] [address] [place] [address] Consulting Physician Internal Medicine - Clinical Cardiac Electrophysiology 04/05/17 Cristi Cleaning MD [address] [place] [address] [place] [address] Physician Internal Medicine-Cardiovascular Disease 04/05/17 documented as of this encounter
--- OUTSIDE RECORDS SUMMARY | 2025-03-21 05:38 | XMS_ITS ---
Author Organization [facility] Address [address] [place] [address] Care Team Providers Care String Top Sealer Name Role Phone William Hunter Primary Care Provider [phone] Sarah Wing Unavailable [phone] REASON FOR VISIT ultrasound order Encounters Encounter Location Date Provider Diagnosis [facility] [address] [place] [address] 03/21/2025 Sarah Wing Abnormal mammogram R92.8 Assessments Encounter Date Diagnosis (ICD Code) Assessment Notes Treatment Notes Treatment Clinical Notes Section Notes 03/21/2025 Abnormal mammogram (ICD-10 - R92.8) Plan Of Treatment Pending Test Test Name Order Date Ultrasound : Breast, Left 03/21/2025 Progress Notes * Oz GLEZIdaliaB:1965 (59 yo F)Acc No.[id number]:03/21/2025 Patient: Ashley NICOLE :1965 A ge:59 Y S ex:Female Address:[place], [address] Subjective: * Chief Complaints: * U ltrasound order * Medical History: * Surgical History: * Hospitalization/Major Diagno stic Procedure: * Medications: Objective: * Vitals: * Physical Examination: Assessment: * Assessment: 1. A bnormal mammogram - R92.8 Plan: * Treatment: * Procedure Codes: * true * Date: Generated for Zuleima crockett/Joe/Farrukh on: 0 03/23/2025 09:38 AM EDT
--- NOTE | 2025-03-23 09:38 | US_ITS ---
PROCEDURE INFORMATION: Exam: US Left Breast, Complete Exam date and time: 03/23/2025 9:42 AM Age: 59 years old Clinical indication: Callback for additional assessment of 0.5 cm upper inner left anterior mass identified on 03/14/2025 screening mammogram TECHNIQUE: Imaging protocol: Complete ultrasound of all four quadrants of the left breast and the retroareolar regions, including ultrasound of the axilla when performed. COMPARISON: 03/14/2025 FINDINGS: ULTRASOUND: Breast ultrasound findings: In the region of mammographic interest, left 11 o'clock 3 cm from the nipple, there is a nearly anechoic mass with rim increased echotexture measuring about 0.8 x 0.5 by 0.4 cm. Mammographically, this is well-circumscribed with central hypodensity. This combination of findings suggests probable fat necrosis Otherwise, no suspicious appearing solid or cystic masses are present No distortion or shadowing IMPRESSION: Six-month follow-up targeted ultrasound is recommended to assure stability of anterior left 11 o'clock suspected subcentimeter region of fat necrosis ASSESSMENT: BI-RADS category 3: Probably benign
--- OUTSIDE RECORDS SUMMARY | 2025-03-23 09:39 | XMS_ITS | Patient Health Record ---
Author Organization [facility] Address [address] [place] [address] Care Team Providers Care Butadiene Convertor Operator Name Role Phone William Hunter Primary Care Provider [phone] Sarah Wing Unavailable [phone] Migration, Provider Unavailable Unavailable Allergies Allergen (clinical drug ingredient) Drug/Non Drug Allergy documented on EMR Reaction Allergy Type Onset Date Status Substance with 4-cjxtqjn-4-methylg lutaryl-coenzyme A reductase inhibitor mechanism of action (substance) Statins couldnt walk Drug Allergy Active codeine Codeine Unknown Drug Allergy Active hydrocodone HYDROcodone itchy and nausea Drug Allergy Active Results Component Value Reference Range Notes Mammogram : Bilateral Reviewed date:03/21/2025 09:46:46 AM Interpretation: Performing Lab: Notes/Report: Medications Medication SIG (Take, Route, Frequency, Duration) [...] review and pick correct strength-formula tion from [employer] options. If intended option is not shown, discontinue and re-order from Quick Search* Active hydrOXYzine HCl 25 MG 1 tab(s) orally 2 times a day; Duration: 30 days 06/24/2023 Active Nitroglycerin 0.4 MG 1 tab(s) sublingually every 5 minutes prn Active Eliquis 5 mg TAKE ONE TABLET BY MOUTH TWICE DAILY; Duration: 30 Active rOPINIRole HCl 0.25 MG 1 tab(s) orally a t bedtime Active amLODIPine Besylate 5 MG 1 tab(s) orally once a day; Duration: 30 day(s) Active Gabapentin 300 MG 1 cap(s) orally 2 times a day; Duration: 30 day(s) 03/05/2025 Active Plavix 75 MG 1 tab(s) orally once a day Active Pantoprazole Sodium 40 MG 1 tab(s) orally once a day Active Metoprolol Succinate ER 100 MG TAKE 1 AND 1/2 TABLET BY MOUTH TWICE DAILY; Duration: 90 days Active Immunizations Vaccine Route Administration [...] Problem Status W/U Status Risk Notes Problem Insomnia (600395207) Insomnia due to medical condition (G47.01) Active confirmed Problem Essential hypertension (02362361) Essential (primary) hypertension (I10) Active confirmed Problem Ventricular tachycardia (36185550) Ventricular tachycardia (I47.2) Active confirmed Problem Paroxysmal atrial fibrillation (536600799) Paroxysmal atrial fibrillation (I48.0) Active confirmed Problem Ventricular fibrillation (72208236) Ventricular fibrillation (I49.01) Active confirmed Problem Stricture of artery (85360229) Stricture of artery (I77.1) Active confirmed Problem Chronic ulcer of skin (79049118) Non-pressure chronic ulcer of skin of other sites with unspecified severity (L98.499) Active confirmed Problem Long-term current use of anticoagulant (080633183) 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 drier operator (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) use of anticoagulants (Z79.01) Active confirmed Problem Mixed anxiety and depressive disorder (735444537) Depression with anxiety (F41.8) Active confirmed Problem Neuropathy (464925165) Neuropathy (G62.9) Active confirmed Problem Essential hypertension (35281957) Essential hypertension (I10) Active confirmed Problem Hyperlipidaemia (80388033) Hyperlipemia (E78.5) Active confirmed Problem Atrial fibrillation (60897242) Atrial fibrillation (I48.91) Active confirmed Problem Gastroesophageal reflux disease without esophagitis (914528797) Gastroesophageal reflux disease without esophagitis (K21.9) Active confirmed Problem Atherosclerotic heart disease of [place] coronary artery without angina pectoris (271773029665360) Coronary artery disease involving [place] coronary artery of [place] heart without angina pectoris (I25.10) Active confirmed Problem COPD - Chronic obstructive pulmonary disease (69863924) Chronic obstructive pulmonary disease, unspecified COPD type (J44.9) Active confirmed Problem Chronic systolic heart failure (966154828) Chronic systolic heart failure (I50.22) Active confirmed Problem Chronic bronchiolitis (639579772) Chronic bronchiolitis (J44.9) Active confirmed Problem Peripheral arterial disease (841359594) Peripheral arterial disease (I73.9) Active confirmed Problem Kidney stone (87504906) Kidney stone (N20.0) Active confirmed Problem Generalized anxiety disorder (28441148) TRISH (generalized anxiety disorder) (F41.1) Active confirmed Problem Insomnia (434450826) Insomnia, unspecified type (G47.00) Active confirmed Problem Ventricular tachyarrhythmia (6881769) Ventricular tachyarrhythmia (I47.2) Active confirmed Problem Cardiac pacemaker in situ (284924995) History of pacemaker (Z95.0) Active confirmed Problem Atherosclerosis of coronary artery (992674613) Atherosclerosis of [place] coronary artery of [place] heart with other form of angina pectoris (I25.118) Active confirmed Problem Automatic implantable cardiac defibrillator in situ (390375275) Presence of automatic implantable cardioverter-defib rillator (Z95.810) Active confirmed Problem Mass of right adrenal gland (finding) (81078017976085550) Adrenal mass, right (E27.9) Active confirmed Problem Seasonal allergic rhinitis (431401876) Seasonal allergic rhinitis, unspecified allergic rhinitis trigger (J30.2) Active confirmed Problem Old myocardial infarction (0432402) History of ST elevation myocardial infarction (STEMI) (I25.2) Active confirmed Problem Automatic implantable cardiac defibrillator in situ (465003867) Presence of combination internal cardiac defibrillator (ICD) and pacemaker (Z95.810) Active confirmed Problem Arteritic leg ulcer (disorder) (003420149) Arterial leg ulcer (L97.909) Active confirmed Problem Chronic obstructive pulmonary disease (13799453) Advanced COPD (J44.9) Active confirmed Problem Betaxolol allergy (085774867) Betaxolol allergy (Z88.8) Active confirmed Problem Hypertensive heart failure (75989345) Unspecified hypertensive heart disease with heart failure (I11.0) Active confirmed Vital Signs Heart Rate 96 /min 02/27/2025 Temperature 97.0 degrees Fahrenheit 02/27/2025 Blood pressure diastolic 88 mm Hg 02/27/2025 Height 64 in 02/27/2025 Blood pressure systolic 136 mm Hg 02/27/2025 Weight 154 lbs 02/27/2025 BMI 26.43 kg/m2 02/27/2025 Encounters Encounter Location Date Provider Diagnosis [facility] [address] [place] [address] 12/30/2024 Provider Migration [facility] [address] [place] [address] 02/27/2025 Sarah Wing Routine medical exam Z00.00 ; Coronary artery disease involving [place] coronary artery of [place] heart without angina pectoris I25.10 ; Gastroesophageal reflux disease without esophagitis K21.9 ; Chronic systolic heart failure I50.22 ; Peripheral arterial disease I73.9 ; Paroxysmal atrial fibrillation I48.0 ; Hyperlipemia E78.5 ; buttermilk drier operator (current) use of anticoagulants Z79.01 ; Essential hypertension I10 ; Encounter for screening for malignant neoplasm of colon Z12.11 ; Visit for screening mammogram Z12.31 and BMI 26.0-26.9,adult Z68.[address] [address] [address] 10/02/2024 William Hunter [address] [place] [address] 01/29/2025 Sarah Wing [facility] [address] [place], [place] [address] 02/27/2025 Sarah Wing [facility] [place] [address] [facility] [address] [place] [address] 03/05/2025 William Hunter [facility] [address] [place], [place] [address] 03/21/2025 Sarah Wing Abnormal mammogram R 92.8 Assessments Encounter Date Diagnosis (ICD Code) Assessment Notes Treatment Notes Treatment Clinical Notes Section Notes 02/27/2025 Routine medical exam (ICD-10 - Z00.00) Needs mammogram and cologuard, will arrange again 02/27/2025 Coronary artery disease involving [place] coronary artery of [place] heart without angina pectoris (ICD-10 - I25.10) No acute angina. Keep FU with cardiology 03/21/2025 Abnormal mammogram (ICD-10 - R92.8) 02/27/2025 Gastroesophageal reflux disease without esophagitis (ICD-10 [...] well. WIll check fasting lipid panel 02/27/2025 buttermilk drier operator (current) use of anticoagulants (ICD-10 - Z79.01) 02/27/2025 Essential hypertension (ICD-10 - I10) Blood pressure at goal. 02/27/2025 Encounter for screening for malignant neoplasm of colon (ICD-10 - Z12.11) 02/27/2025 Visit for screening mammogram (ICD-10 - Z12.31) 02/27/2025 BMI 26.0-26.9,adult (ICD-10 - Z68.26) BMI acceptable Plan Of Treatment Pending Test Test Name Order Date Ultrasound : Breast, Left 03/21/2025 Urinalysis 10/14/2016 Urinalysis 03/22/2018 X ray : Shoulder, Left 09/14/2006 X ray : Orbits, Bilateral 09/14/2006 X ray : Nasal Bone 09/14/2006 X ray : Humerus, Left 09/14/2006 Mammogram : Bilateral 07/19/2023 H-CBC with AUTO DIFF 01/31/2018 H-BMP 01/31/2018 H-BUN 07/21/2016 H-CREATININE SERUM 07/21/2016 H-MAGNESIUM 01/31/2018 H-LIVER PANEL 07/27/2016 H-TSH 01/31/2018 CT Scan : Abdomen Adrenal Protocol 07/17 LIPID PANEL, STANDARD (7600) 02/27/2025 LIPID PANEL, STANDARD (7600) 10/19/2023 COMPREHENSIVE METABOLIC PANEL (83514) COMPREHENSIVE METABOLIC PANEL (52290) CBC (INCLUDES DIFF/PLT) (6399) 4 CBC (INCLUDES DIFF/PLT) (6399) 5 Insurance Providers Payer Name Payer Address Payer Phone Subscriber Number Group Number Insured Name Patient Relationship to Insured Coverage Start Date Coverage End Date [employer] [facility] [address] [address] [place] [phone] [id number] Ashley Ding Self - patient is the [...] toe Hospitalization History Reason Date(Month/Year) [facility]- blood cot 12/2024 [facility] 05/2023 H- defibrillator shock, foot infection 12/2021 chest pain 2006 [place] 06/2016
--- OUTSIDE RECORDS SUMMARY | 2025-03-23 09:39 | XMS_ITS | Encounter Summary ---
Author Organization Healthcare Address [address] [place] [address] Care Team Providers Care Street Roller Engineer Name Role Phone Fariha Henderson APRN Primary Care Provider [phone] Encounter Details Date Type Department Care Team (Late st Contact Info) Description 02/18/2022 Community [facility] [address] [place] [address] Jabari Goetz MD [address] [facility] [address] [place] [address] PAD (peripheral artery disease) (CMS/HCC) [...] disease documented in this encounter Care Teams Street Roller Engineer Relationship Specialty Start Date End Date Fariha Henderson APRN [address] [place] [address] PCP - General 02/07/21 documented as of this encounter
--- OUTSIDE RECORDS SUMMARY | 2025-03-23 09:39 | XMS_ITS | Clinical Summary ---
Author Organization [facility] Address [address] [place] [address] Care Team Providers Care Turkey Picker Name Role Phone Fariha Henderson APRN Primary Care Provider [phone] Social History Tobacco Use Types Packs/Day Years Used Date Smoking Tobacco: Never Assessed Comments Unknown Sex and Gender Information Value Date Recorded Sex Assigned at Not on file Legal Sex Female 7:27 PM EDT Gender Identity Not on file Sexual Orientation Not on file Plan of Treatment Not on file Care Teams Turkey Picker Relationship Specialty Start Date End Date Fariha Henderson APRN [address] [place] [address] PCP - General 02/07/21
--- OUTSIDE RECORDS SUMMARY | 2025-03-23 09:39 | XMS_ITS | Clinical Summary ---
Author Organization [facility] Address [address] [place] [address] Phone Care Team Providers Care Automatic Coil Machine Operator Name Role Phone González Gotti MD Unavailable [phone] Cristi Cleaning MD Unavailable [phone] William Hunter MD Primary Care Provider [phone] Allergies Active Allergy Reactions Criticality Noted Date Comments Atorvastatin Myalgia High 07/01/2023 Codeine Itching Low nausea Ezetimibe Myalgia High 07/01/2023 Hydrocodone Itching Low nausea Promethazine Other (See Comments) Low 06/12/2022 Made legs restless And also very sleepy Rosuvastatin Myalgia High 07/01/2023 Simvastatin Myalgia High 07/01/2023 Cmigknl-Kvn-Mar Reductase Inhibitors Other (See Comments) 01/02/2025 Joint [...] 02/07/2025 fluticasone propionate (FLONASE) 50 mcg/actuation Nasl [place], Suspension 1 spay each nostril twice daily 1 Each 3 3 Active oxymetazoline (AFRIN) 0.05 % Nasl [place], Non-Aerosol 1 [place] by Nasal route as needed for Congestion [...] t be different from the original. 03/05/22 [facility] #[id number] (as expected) Kashif Wong MD Problem Noted [...] situ 12/07/2023 Insomnia 12/07/2023 Kidney stone 12/07/2023 terminologist current use of anticoagulant therapy 0 12/07/2023 Neuropathy 12/07/2023 Non-pressure chronic ulcer o f skin of other sites with unspecified severity 12/07/2023 Palpitations 12/07/2023 Atrial fibrillation with rapid ventricular respo nse 12/07/2023 Seasonal allergic rhinitis 12/07/2023 Sinusitis 12/07/2023 Stented coronary artery 12/07/2023 Typical angina 12/07/2023 Ventricular fibrillation 12/07/2023 Ventricular fibrillation seen on cardiac cath lab manager 12/07/2023 Ventricular tachyarrhythmia 12/07/2023 Failed flap 06/28/2023 Skin flap necrosis 06/28/2023 Atherosclerosis of artery of extremity with ulce ration 06/02/2023 PAD (peripheral artery disease) 06/01/2023 S/P foot surgery 06/01/2023 Cellulitis of left lower extremity 05/28/2023 Open wound of left foot 04/26/2023 Overview (04/26/2023): Added automatically from request for surgery [id number] Hammertoe of left foot 06/08/2022 Overview (06/08/2022): Added automatically from request for surgery [id number] Pain in left foot 06/08/2022 Overview (06/08/2022): Added automatically from request for surgery [id number] Gangrene of left foot 06/08/2022 Overview (06/08/2022): Added automatically from request for surgery [id number] Vaping nicotine dependence, non-tobacco product 03/05/2022 COPD [...] (02/08/2023): Added automatically from request for surgery [id number] Osteomyelitis of second toe of left foot 02/05/2023 06/01/2023 Overview (02/05/2023): Added automatically from request for surgery [id number] Atherosclerosis of [place] of left lower extremity with ulceration 09/07/2022 06/01/20 Atherosclerosis of [place] of left lower extremity with gangrene 03/05/2022 06/01/2023 WA (myocardial infarction) 06/27/2016 0 06/01/2023 STEMI (ST elevation myocardial infarction) 06/01/2023 Overview (04/05/2017): STEMI with 3 NORI to RCA Foot ulceration, left, with necrosis of muscle 04/07/2024 Chronic toe ulcer, left, wit h necrosis of bone 06/01/2023 Encounters Date Type Department Care Team Description 03/12/2025 1:53 PM EDT - 03/12/2025 11:59 PM EDT Hospital Encounter [facility] [place] [address] [place] [address] Kirt Dolan DPM 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) (Primary Dx); Stage III pressure ulcer of left heel (HCC); PAD (peripheral artery disease) Discharge Disposition: Home or Self Care 02/26/2025 3:15 PM EDT - 02/26/2025 11:59 PM EDT Hospital Encounter [facility] [place] [address] [place] [address] Kirt Dolan DPM Ischemic ulcer of left foot with fat layer exposed (HCC) (Primary Dx); 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); Stage III pressure ulcer of left heel (HCC); PAD (peripheral artery disease); Claudication of right lower extremity Discharge Disposition: Home or Self Care 02/20/2025 12:55 PM EDT - 02/20/2025 11:59 PM EDT Hospital Encounter [facility] [address] [place] [address] Nette Jalloh APRN PAD (peripheral artery disease); Peripheral vascular angioplasty status with implants and grafts Discharge Disposition: Home or Self Care 02/12/2025 2:25 PM EDT - 02/12/2025 11:59 PM EDT Hospital Encounter [facility] [place] [address] [place] [address] Cristi Pelletier, DPJeremi 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) (Primary Dx); Stage III pressure ulcer of left heel (HCC) Discharge Disposition: Home or Self Care 02/07/2025 9:40 AM EDT Office Visit [facility] [address] [place] [phone] Nette Jalloh APRN PAD (peripheral artery disease) (Primary Dx); Primary hypertension; Chronic obstructive pulmonary disease, unspecified COPD type (HCC); Peripheral vascular angioplasty status with implants and grafts; S/P insertion of iliac artery stent 02/01/2025 2:58 PM EDT - 02/01/2025 11:59 PM EDT Hospital Encounter [facility] [place] [address] [place] [address] Cristi Pelletier DPM Stage III pressure ulcer of left heel (HCC) (Primary Dx) Discharge Disposition: Home or Self Care 01/25/2025 2:30 PM EDT - 01/25/2025 11:59 PM EDT Hospital Encounter [facility] [place] [address] [place] [address] Cristi Pelletier DPM Pressure ulcer of left heel, stage 4 (HCC) (Primary Dx); Foot ulceration, left, with necrosis of muscle (HCC) Discharge Disposition: Home or Self Care 01/08/2025 1:51 PM EDT - 01/08/2025 11:59 PM EDT Hospital Encounter [facility] [place] [address] [place] [place] [address] Cristi Pelletier, DPM Foot ulceration, left, with necrosis of muscle (HCC) (Primary Dx); Pressure ulcer of left heel, stage 4 (HCC) Discharge Disposition: Home or Self Care 01/02/2025 4:15 PM EDT Office Visit [facility] [address] [place] [phone] Cristi Pelletier, DPM Ulcer of heel, left, with necrosis of muscle (HCC) (Primary Dx); PVD (peripheral vascular disease); History of transmetatarsal amputation of left foot (HCC) 01/02/2025 Travel 12/27/2024 11:34 AM EDT - 01/01/2025 4:39 PM EDT Hospital Encounter [facility] [address] Vishnu Penn MD PAD (peripheral artery disease); Ulcer of left foot with fat layer exposed (HCC) Discharge Disposition: Home or Self Care 12/27/2024 Travel 12/26/2024 Orders Only [facility] [address] [facility] [address] [address] [place] [phone] Isabella Lucas RMA PAD (peripheral artery disease) (Primary Dx) 12/24/2024 Travel from Last 3 Months Surgical History Surgery Date Site/Laterality Comments CARDIAC PACEMAKER PLACEMENT 11/05/2016 [facility] Dual PPM CORONARY ANGIOPLASTY WITH STENT [...] IR REVAS FEM POP ART UNILAT W OFFICER CAPTAIN 03/13/2022 IR REVAS FEM POP ART UNILAT W OFFICER CAPTAIN 03/13/2022 Kashif Wong MD [facility] IR COLONOSCOPY HAMMER TOE SURGERY 06/15/2022 Foot/Ankle/Left Left foot Correction of hammer toe deformity with arthroplasty second and third toe. Left foot Application of skin graft substitute.; Surgeon: Jabari Hill DPM; Location: [facility] OR; Service: Podiatry Medical devices from this surgery are in the Medical Devices section. SKIN GRAFT 06/15/2022 Left Surgeon: Jabari Hill DPM; Location: [facility]; Service: Podiatry Medical devices [facility] Service: Orthopedics Medical devices from this surgery are in the Medical Devices section. SKIN GRAFT 12/23/2022 Left . ; Surgeon: Jabari Hill DPM; Location: [facility]; Service: Orthopedics Medical devices from this surgery are in the Medical Devices section. TOE AMPUTATION 02/10/2023 Foot/Ankle/Left Foot/Ankle/Left Left foot second toe amputation, Left foot excisional debridement with application of skin graft substitute; Surgeon: Jabari Hill DPM; Location: [facility]; Service: Orthopedics Medical devices from this surgery are in the Medical Devices section. FOOT SURGERY 02/10/2023 Foot/Ankle/Left Surgeon: Jabari Hill DPM; Location: [facility]; Service: Orthopedics Medical devices from this surgery are in the Medical Devices section. SKIN GRAFT 02/10/2023 Surgeon: Jabari Hill DPM; Location: [facility] OR; Service: Orthopedics Medical devices from this surgery are in the Medical Devices section. TOE AMPUTATION 05/19/2023 Foot/Ankle/Left Left Left Left foot, amputation of third toe. Left foot, wound debridment application. Left foot, skin graft substitute. Left foot wound debridment closure.; Surgeon: Jabari Hill DPM; Location: [facility] OR; Service: Orthopedics Medical devices from this surgery are in the Medical Devices section. DEBRIDEMENT 05/19/2023 Left .; Surgeon: Jabari Hill DPM; Location: [facility]; Service: Orthopedics Medical devices from this surgery are in the Medical Devices section. LAYER WOUND CLOSURE 05/19/2023 Left .; Surgeon: Jabari Hill DPM; Location: [facility]; Service: Orthopedics Medical devices [...] IR REVAS FEM POP ART UNILAT W OFFICER CAPTAIN 06/02/2023 IR REVAS FEM POP ART UNILAT W OFFICER CAPTAIN 06/02/2023 Vishnu Penn MD EDG IR IR [...] IR REVAS FEM POP ART UNILAT W OFFICER CAPTAIN 12/28/2024 IR REVAS FEM POP ART UNILAT W OFFICER CAPTAIN 12/28/2024 Vishnu Penn MD EDG IR IR [...] COPD (chronic obstructive pu lmonary disease) ([facility]) HLD (hyperlipidemia) Hypertension Emphysema, unspecified ([facility]) CAD (coronary artery disease) STEMI (ST elevation myocardi al infarction) ([facility]) STEMI with 3 ONRI to RCA Cardiac pacemaker SJM Dual PPM - Dr. Cleaning History of cardiac cath 03/23/[address] aced in Right leg 03/23/2017 [place] (myocardial infarction) ([facility]) 06/2016 Depression with anxiety Essential hypertension Chronic systolic heart failure (HCC) Sinus node dysfunction ([facility]) 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 Cleaning Bradycardia Headache Heartburn Post-operative nausea and vomiting Pacemaker Asthma Anesthesia complication only alex chavarria phenergan, alarming how long it takes her [...] drink = 0.6 oz pur e alcohol) [facility] Utilities Answer Date Recorded In [...] Date Recorded PHQ-2 Total Score 0 12/28/2024 [facility] - Occupational Stress [...] things needed for daily living? No 05/29/2023 [facility] HRSN [facility] IP Transportation Answer D ate Recorded [...] Info) Description 03/26/2025 1:15 PM EDT Appointment [facility] [address] [place] [address] Cristi Pelletier, DPM [id number] [phone] 03/27/2025 8:00 AM EDT Office Visit [facility] [address] [place] [address] [place] [phone] Vishnu Penn MD [address] [place] [address] 05/10/2025 10:20 AM EDT Office Visit [facility] [address] [place] [address] [address] [place] [address] Nette Jalloh APRN [address] [place] [address] [address] [place] [address] 11/12/2025 1:30 PM EST Appointment [facility] [address] [place] [address] [place] [phone] Nette Jalloh L, PICTURE FRAMES INSPECTOR [address] [place], [place] [phone] 11/12/2025 2:40 PM EST Office Visit [facility] [address] [facility] [address] [address] [place] [address] JanuaryNette, PICTURE FRAMES INSPECTOR [address] [place], [place] [phone] Health Maintenance Due Date Last Done Comments [...] tibial pulses. Medical Devices Implanted Type Area Roll Icer Device Identifier Shelf Expiration Date Model / Serial / Lot Defib Graft Tissue Myriad Thin 5 X 5cm - [id number] Implanted:Qty: 1 on 06/15/2022 by Jabari Hill DPM at [facility] Left: Foot AROA BIOSURGERY 07/27/2022 [id number] US / / [id number] Wire Denise 0.640evy1.5in Microaire [facility] End [facility] Pnt - [id number] Implanted:Qty: 2 on 06/15/2022 by Jabari Hill DPM at [facility] Left: Foot MICROAIRE SURG INSTR 11/22/2025 [id number] / / [id number] Stent Enpros 8mm 7fr Intro 38mm 80cm Icast Trachbr Be Cvr-11/04/2022 Implanted:Qty: 1 on 11/04/2022 by Vishnu Penn MD Left: Iliac Artery GETINGE INDUSTIER:GETINGE [facility] [id number] / / [id number] Graft Tissue Myriad Thin 5 X 5cm - [id number] Implanted:Qty: 1 on 12/23/2022 by Jabari Hlil DPM at [facility] Left: Foot AROA BIOSURGERY 02/24/2025 [id number] US / / [id number] Graft Ovine Tissue 500mg Beatriz Duque - [id number] Implanted:Qty: 1 on 12/23/2022 by Jabari Hill, DPM at [facility] Left: Foot AROA BIOSURGERY 07/27/2023 [id number] / / [id number] Graft Tissue Myriad Thin 5 X 5cm - [id number] Implanted:Qty: 1 on 02/10/2023 by Jabari Hill, STANLEYM at [facility] Left: Heel AROA BIOSURGERY 03/26/2025 [id number] US / / [id number] Graft Tissue Myriad Thin 5 X 5cm - [id number] Implanted:Qty: 1 on 05/19/2023 by Jabari Hill DPM at [facility] Left: Foot AROA BIOSURGERY 03/26/2025 [id number] US / / [id number] Graft Tissue Myriad Thin 5 X 5cm - [id number] Implanted:Qty: 1 on 06/06/2023 by Jabari Hill, ROGER at [facility] Left: Heel AROA BIOSURGERY 02/24/2025 [id number] US / / [id number] Procedures Procedure Name Priority Date/Time Associated Diagnosis Comments [facility] LOWER EXTREMITY ARTERIAL DUPLEX COMPLETE [...] female with PMH significant for criticallimb ischemia, [place], hyperlipidemia, hypertension, COPD, CAD, asthma andleft TMA [...] Dr. Cleaning Chronic systolic heart failure ([facility]) COPD (chronic obstructive pulmonary disease) ([facility]) Depression with anxiety Emphysema, unspecified ([facility]) Essential hypertension Headache Heartburn History of cardiac cath 03/23/2017 Stent placed in Right leg 03/23/2017 HLD (hyperlipidemia) Hypertension [place] (myocardial infarction) ([facility]) 06/2016 Pacemaker Post-operative nausea and vomiting Sinus node dysfunction ([facility]) 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 Cleaning STEMI (ST elevation myocardial infarction) ([facility]) STEMI with 3 NORI to RCA Systolic heart failure ([facility]) 02/2017 ECHO, EF 25% Past Surgical History: Procedure Laterality Date CARDIAC CATHETERIZATION Right 03/23/2017 stent placed in right leg CARDIAC PACEMAKER PLACEMENT 11/05/2016 SJM Dual PPM COLONOSCOPY CORONARY ANGIOPLASTY WITH STENT PLACEMENT 06/2016 x3 DEBRIDEMENT Left 05/19/2023 .; Surgeon: Jabari Hill DPM; Location: [facility] OR; Service:Orthopedics FEMUR FRACTURE SURGERY Right right femur fx repair FOOT SURGERY FOOT SURGERY Left 12/23/2022 Left foot heel and second and third toe debridement with application ofskin graft substitute. ; Surgeon: Jabari Hill DPM; Location: [facility]; Service: Orthopedics FOOT SURGERY Left 02/10/2023 Surgeon: Jabari Hill DPM; Location: [facility] OR; Service:Orthopedics FOOT SURGERY Left 06/06/2023 left FOOT TRANSMETATARSAL amputation; Surgeon: Jabari Hill DPM;Location: [facility] OR; Service: Podiatry HAMMER TOE SURGERY Left 06/15/2022 Left foot Correction of hammer toe deformity with arthroplasty second andthird toe. Left foot Application of skin graft substitute.; Surgeon:Jabari Hill DPM; Location: [facility] OR; Service: Podiatry HIP SURGERY IR ABDOMINAL [...] IR REVAS FEM POP ART UNILAT W OFFICER CAPTAIN 03/13/2022 IR REVAS FEM POP ART UNILAT W OFFICER CAPTAIN 03/13/2022 Kashif Wong MD EDG IR IR REVAS FEM POP ART UNILAT W OFFICER CAPTAIN 06/02/2023 IR REVAS FEM POP ART UNILAT W OFFICER CAPTAIN 06/02/2023 Vishnu Penn MD EDG IR IR [...] [facility]; Service:Orthopedics SKIN GRAFT Left 06/15/2022 Surgeon: Jabari Hill DPM; Location: [facility]; Service: Podiatry SKIN GRAFT Left 12/23/2022 . ; Surgeon: Jabari Hill DPM; Location: [facility]; Service:Orthopedics SKIN GRAFT 02/10/2023 Surgeon: Jabari Hill DPM; Location: [facility]; Service:Orthopedics TOE AMPUTATION Left 02/10/2023 Left foot second toe amputation, Left foot excisional debridement withapplication of skin graft substitute; Surgeon: Jabari Hill DPM;Location: [facility]; Service: Orthopedics TOE AMPUTATION Left 05/19/2023 Left foot, amputation of third toe. Left foot, wound debridmentapplication. Left foot, skin graft substitute. Left foot wound debridmentclosure.; Surgeon: Jabari Hill DPM; Location: [facility] OR;Service: Orthopedics Family History Problem [...] true Transportation Needs: No Transportation Needs (12/28/2024) [facility] IP Transportation In the past 12 months, has lack of reliable transportation kept you frommedical appointments, meetings, work or from getting things needed fordaily living?: No Physical Activity: Inactive (12/28/2024) Exercise Vital Sign Days of Exercise per Week: 0 days Minutes of Exercise per Session: 0 min Stress: No Stress Concern Present (12/28/2024) [facility] - Occupational StressQuestionnaire Feeling [...] consented permission allowing today's photographs - usingthe [employer] roxanne. Lab and radiographic data reviewed. Thank [...] - TELEMETRY Routine 12/30/2024 7:17 PM EDT RI US EVALUATE PSEUDOANEURYSM RIGHT Routine 12/30/2024 3:33 [...] TIB PER ART UNILAT INIT VES W OFFICER CAPTAIN MAYITO 12/29/2024 11:37 PM EDT PAD (peripheral artery disease) IR TRANS ART OR PAO FOR THROMB SUBSQ DAY FU CATH CONT INJ+CLOS MAYITO 12/29/2024 11:37 PM EDT IR REVAS TIB PER ART UNILAT EA ADD W OFFICER CAPTAIN MAYITO 12/29/2024 11:37 PM EDT PAD (peripheral artery disease) IR REVAS FEM POP ART UNILAT W OFFICER CAPTAIN ATHEREC MAYITO 12/29/2024 11:37 PM EDT PAD [...] IR REVAS FEM POP ART UNILAT W OFFICER CAPTAIN MAYITO 12/28/2024 6:07 PM EDT PAD (peripheral [...] 9:23 AM EDT PAD (peripheral artery disease) from Last 3 Months Results * [facility] US LOWER EXTREMITY ARTERIAL DUPLEX COMPLETE (02/20/2025 2:08 PM EDT) Anatomical Region Laterality Modality Vascular, Leg Electrocardiogra phy 02/20/2025 1:19 PM EDT Impressions 02/20/2025 2:26 PM EDT Conclusions * Right: * RODOLFO: 0.63 (DPA, distal OFFICER CAPTAIN occluded) / TBI: 0, absent waveform. There is an occlusion of the distal posterior tibial artery. Dampened, biphasic flow of the proximal and mid posterior tibial artery. Mild to moderate plaque noted in the arteries of the right lower extremity. * Left: * RODOLFO: 1.29 (OFFICER CAPTAIN) / TBI: 0, metatarsal amputation. 20-49 % stenosis of the profunda, 145 cm/s. There is an occlusion of the proximal anterior tibial artery and the mid peroneal artery. Mild to moderate plaque noted in the arteries of the left lower extremity. Narrative Procedure Note Eusebio De Leon MD - 02/20/2025 IMPRESSION Conclusions * Right: * RODOLFO: 0.63 (DPA, distal OFFICER CAPTAIN occluded) / TBI: 0, absent waveform. Thereis an occlusion of the distal posterior tibial artery. Dampened, biphasicflow of the proximal and mid posterior tibial artery. Mild to moderate plaquenoted in the arteries of the right lower extremity. * Left: * RODOLFO: 1.29 (OFFICER CAPTAIN) / TBI: 0, metatarsal amputation. 20-49 % stenosis ofthe profunda, 145 cm/s. There is an occlusion of the proximal anteriortibial artery and the mid peroneal artery. Mild to moderate plaque noted in the arteries of the left lower extremity. us Nette L May PICTURE FRAMES INSPECTOR IMG VASCULAR ORDERABLES Final R esult * ECG AND WAVEFORMS - TELEMETRY (01/01/2025 7:27 AM EDT) Only the most recent of5 resultswithin the time period is included. ECG INTERPRET Atrial Paced [facility] 01/01/2025 7:27 AM EDT Narrative [facility] - 01/01/2025 7:27 AM EDT See Clinical Report link for waveform capture us Unknown Provider POINT OF CARE CARDIOLOGY Final Result Performing Organization Address City/[facility]/ZIP Co de Phone Number [facility] [address] [place], [place] [id number] * HEPARIN ANTI-XA, UNF (01/01/2025 4:41 AM EDT) Only the most recent of5 resultswithin the time period is included. Heparin Level UNF 0.58 0.30 - 0.70 IU/mL 01/01/2025 5:10 AM EDT [facility] Comment:The therapeutic rang e for heparinized patients monitored by the Heparin Lvl UF is 0.30-0.70 IU/mL. Blood VENOUS BLOOD / Unknown Venipuncture / Unknown 01/01/2025 4:41 AM EDT 01/01/2025 4:59 AM EDT us Asa Cochran DO HEMATOLOGY ORDERABLES Final Resu lt Performing Organization Address City/[facility]/ZIP Co de Phone Number [facility] [address], [place] [address] * (ABNORMAL) CBC (01/01/2025 4:41 AM EDT) Only the most recent of3 resultswithin the time period is included. WBC 6.2 3.7 - 10.3 x10(3)/mcL 01/01/2025 5:15 AM EDT [facility] RBC 3.46(L) 3.90 - 5.20 x10(6)/mcL 01/01/2025 5:15 AM EDT [facility] Hgb 10.4(L) 11.2 - 15.7 g/dL 01/01/2025 [...] g/dL 01/01/2025 5:15 AM EDT [facility] RDW 13.6 <=14.9 % 01/01/2025 5:15 AM EDT [facility] Platelet 186 155 - 369 x10(3)/mcL 01/01/2025 5:15 AM EDT [facility] MPV 10.5 8.8 - 12.5 fL 01/01/2025 5:15 AM EDT [facility] Blood VENOUS BLOOD / Unknown Venipuncture / Unknown 01/01/2025 4:41 AM EDT 01/01/2025 4:59 AM EDT us Asa Cochran DO HEMATOLOGY ORDERABLES Final Resu lt [facility] [address] [facility] , [place] [address] * RI US EVALUATE PSEUDOANEURYSM RIGHT (12/30/2024 3:33 PM [...] common femoral vein andproximal superficial femoral vein. us Jef Gutierrez PA-C IMG VASCULAR ORDERABLES Final Re sult * FIBRINOGEN (12/30/2024 10:04 AM EDT) Only the most recent of6 resultswithin the time period is included. Fibrinogen 286 196 - 444 mg/dL 12/30/2024 10:29 AM EDT [facility] Blood VENOUS BLOOD / Unknown Venipuncture / Unknown 12/30/2024 10:04 AM EDT 12/30/2024 10:18 AM EDT Vishnu Penn MD HEMATOLOGY ORDERABLES Final R esult Performing Organization Address [facility] Co de Phone Number [facility] [employer] [address] [place] [address] , [place] [address] * IONIZED CALCIUM - INPATIENT (12/30/2024 4:07 AM EDT) Only the most recent of3 resultswithin the time period is included. Calcium Ionized 1.18 1.12 - 1.32 mmol/L 12/30/2024 4:41 AM EDT [facility] Blood VENOUS BLOOD / Unknown Venipuncture / Unknown 12/30/2024 4:07 AM EDT 12/30/2024 4:37 AM EDT Vishnu Penn MD CHEMISTRY ORDERABLES Final Re sult Performing Organization Address [facility] de Phone Number [facility] [employer] [address] , [place] [address] * PHOSPHORUS LEVEL (12/30/2024 4:07 AM EDT) Only the most recent of3 resultswithin the time period is included. Phosphorus 3.1 2.5 - 4.5 mg/dL 12/30/2024 5:11 AM EDT [facility] Blood VENOUS BLOOD / Unknown Venipuncture / Unknown 12/30/2024 4:07 AM EDT 12/30/2024 4:37 AM EDT Vishnu Penn MD CHEMISTRY ORDERABLES Final Re sult Performing Organization Address [facility] Co de Phone Number [facility] [address] , [place], [place] [id number] * MAGNESIUM LEVEL (12/30/2024 4:07 AM EDT) Only the most recent of3 resultswithin the time period is included. Magnesium 2.1 1.6 - 2.4 mg/dL 12/30/2024 5:11 AM EDT [facility] Blood VENOUS BLOOD / Unknown Venipuncture / Unknown 12/30/2024 4:07 AM EDT 12/30/2024 4:37 AM EDT us Vishnu Penn MD CHEMISTRY ORDERABLES Final Re sult [facility] [address] [facility] , [place] [address] * (ABNORMAL) BASIC METABOLIC PANEL (12/30/2024 4:07 AM EDT) Only the most recent of4 resultswithin the time period is included. Pathologist [facility] Sodium 136 136 - 145 mmol/L 12/30/2024 [...] 10.4 mg/dL 12/30/2024 5:11 AM EDT [facility] Glucose Lvl 153(H) 70 - 99 mg/dL 12/30/2024 5:11 AM EDT [facility] BUN 10 6 - 20 mg/dL 12/30/2024 5:11 AM EDT [facility] Creatinine 0.80 0.51 - 1.30 mg/dL 12/30/2024 5:11 AM EDT [facility] eGFR (CKD-EPIcr 2020) 84 >=60 mL/min/1.7 3 m2 12/30/2024 5:11 AM EDT [facility] Comment:Estimated GFR was ca lculated using the CKD-EPIcr (2020) equation refit without race. The equation is recommended by the [employer] - [employer]ph[employer] Task Force. Blood VENOUS BLOOD / Unknown Venipuncture / Unknown 12/30/2024 4:07 AM EDT 12/30/2024 4:37 AM EDT us Vishnu Penn MD CHEMISTRY ORDERABLES Final Re sult [facility] [address] [place] [address] , [place] [address] * IR REVAS TIB PER ART UNILAT EA ADD W OFFICER CAPTAIN (12/29/2024 11:37 PM EDT) Anatomical Region Laterality [...] and anticoagulation to heal the wound. TID [id number] Narrative 01/04/2025 12:13 AM EDT ACCESSION NUMBER: [id number]. DATE OF PROCEDURE: 12/29/2024. PREOPERATIVE DIAGNOSIS: Left [...] Left popliteal artery secondary suction thrombectomy with 6-Sudanese guide catheter. Left PT angioplasty with 2.5 [...] patient was identified and brought to the Gluing Machine Operator. After adequate sedation was obtained, the patient [...] and secondary suction thrombectomy was performed with 6-Sudanese guide catheter. There were some small specks [...] TIB PER ART UNILAT INIT VES W OFFICER CAPTAIN (12/29/2024 11:37 PM EDT) Anatomical Region Laterality [...] and anticoagulation to heal the wound. TID [id number] Narrative 01/04/2025 12:13 AM EDT ACCESSION NUMBER: [id number]. DATE OF PROCEDURE: 12/29/2024. PREOPERATIVE DIAGNOSIS: Left [...] Left popliteal artery secondary suction thrombectomy with 6-Sudanese guide catheter. Left PT angioplasty with 2.5 [...] patient was identified and brought to the Gluing Machine Operator. After adequate sedation was obtained, the patient [...] and secondary suction thrombectomy was performed with 6-Sudanese guide catheter. There were some small specks [...] IR REVAS FEM POP ART UNILAT W OFFICER CAPTAIN ATHEREC (12/29/2024 11:37 PM EDT) Anatomical Region [...] and anticoagulation to heal the wound. TID [id number] Narrative 01/04/2025 12:13 AM EDT ACCESSION NUMBER: [id number]. DATE OF PROCEDURE: 12/29/2024. PREOPERATIVE DIAGNOSIS: Left [...] Left popliteal artery secondary suction thrombectomy with 6-Sudanese guide catheter. Left PT angioplasty with 2.5 [...] patient was identified and brought to the Gluing Machine Operator. After adequate sedation was obtained, the patient [...] and secondary suction thrombectomy was performed with 6-Sudanese guide catheter. There were some small specks [...] and anticoagulation to heal the wound. TID [id number] Narrative 01/04/2025 12:13 AM EDT ACCESSION NUMBER: [id number]. DATE OF PROCEDURE: 12/29/2024. PREOPERATIVE DIAGNOSIS: Left [...] Left popliteal artery secondary suction thrombectomy with 6-Sudanese guide catheter. Left PT angioplasty with 2.5 [...] patient was identified and brought to the Gluing Machine Operator. After adequate sedation was obtained, the patient [...] and secondary suction thrombectomy was performed with 6-Sudanese guide catheter. There were some small specks [...] IR REVAS FEM POP ART UNILAT W OFFICER CAPTAIN (12/28/2024 6:07 PM EDT) Anatomical Region Laterality Modality Interventional R adiology Impressions 01/04/2025 12:13 AM EDT : Technically successful left popliteal and TPT suction thrombectomy with a 6-Sudanese guide catheter with removal of mural thrombus. [...] in 24 hours for follow-up angiogram. TID: [id number] Narrative 01/04/2025 12:13 AM EDT DATE OF PROCEDURE: 12/28/2024 PREOPERATIVE DIAGNOSIS: Left lower extremity PAD (peripheral artery disease) with nonhealing ulceration. POSTOPERATIVE DIAGNOSIS: Left lower extremity PAD (peripheral artery disease) with nonhealing ulceration. PROCEDURES: Left lower extremity angiogram via catheter and sheath. Left popliteal artery and TPT suction thrombectomy with 6-Sudanese guide catheter. Left PT angioplasty with 2.5 [...] patient was identified and brought to the Gluing Machine Operator. After adequate sedation was obtained, the patient [...] artery and TPT were suction thrombectomized using 6-Sudanese guide catheter with multiple pulls. Thrombus was [...] of TPT and popliteal artery with a 6-Sudanese guide catheter, there was a significant reduction [...] popliteal and TPT suction thrombectomy with a 6-Sudanese guide catheter with removal of mural thrombus. [...] in 24 hours for follow-up angiogram. TID: [id number] Narrative 01/04/2025 12:13 AM EDT DATE OF PROCEDURE: 12/28/2024 PREOPERATIVE DIAGNOSIS: Left lower extremity PAD (peripheral artery disease) with nonhealing ulceration. POSTOPERATIVE DIAGNOSIS: Left lower extremity PAD (peripheral artery disease) with nonhealing ulceration. PROCEDURES: Left lower extremity angiogram via catheter and sheath. Left popliteal artery and TPT suction thrombectomy with 6-Sudanese guide catheter. Left PT angioplasty with 2.5 [...] patient was identified and brought to the Gluing Machine Operator. After adequate sedation was obtained, the patient [...] artery and TPT were suction thrombectomized using 6-Sudanese guide catheter with multiple pulls. Thrombus was [...] for another 24 hours. A 40 mm [place]-Ann catheter was placed in the left popliteal [...] of TPT and popliteal artery with a 6-Sudanese guide catheter, there was a significant reduction [...] proximally for thrombolytic therapy. Vishnu Penn MD IMG IR ORDERABLES Final Resul t * (ABNORMAL) PARTIAL THROMBOPLASTIN TIME (12/28/2024 4:08 AM EDT) Only the most recent of2 resultswithin the time period is included. PTT 72.2(H) 27.9 - 38.7 second(s) 12/28/2024 4:50 AM EDT [facility] Comment: Therapeutic range for unfractionated heparin: 50.1 [...] ORDERABLES Final R esult Performing Organization Address [facility]/ZIP Co de Phone Number [facility] [address] [facility] , [place] [address] * PT / INR (12/28/2024 4:08 AM EDT) Only the most recent of3 resultswithin the time period is included. PT 12.4 10.5 - 13.6 second(s) 12/28/2024 4:50 AM EDT [facility] INR 1.05 0.89 - 1.16 (ratio) 12/28/2024 4:50 AM EDT [facility] Comment: Level of Therapy Indications Target INR Range Standard Dose Treatment and prophylaxis of venous 2.0 - 3.0 thrombosis, pulmonary embolism High Dose High risk patients with mechanical 2.5 - 3.5 heart valves Blood VENOUS BLOOD / Unknown Venipuncture / Unknown 12/28/2024 4:08 AM EDT 12/28/2024 4:33 AM EDT Vishnu Penn MD HEMATOLOGY ORDERABLES Final R esult Performing Organization Address [facility] Co de Phone Number [facility] [address] [facility] , [place] [address] * CBC WITH DIFF (12/28/2024 4:08 AM EDT) Only the most recent of2 resultswithin the time period is included. WBC 8.8 3.7 - 10.3 x10(3)/mcL 12/28/2024 4:46 AM EDT [facility] RBC 4.51 3.90 - 5.20 x10(6)/mcL 12/28/2024 4:46 AM EDT [facility] Hgb 13.5 11.2 - 15.7 g/dL [...] 12/28/2024 4:46 AM EDT [facility] Platelet 203 155 - 369 x10(3)/mcL 12/28/2024 4:46 AM EDT [facility] MPV 10.5 8.8 - 12.5 fL 12/28/2024 4:46 AM EDT [facility] Neut Percent 60.2 % 12/28/2024 4:46 AM EDT [facility] Comment:Neutrophils equals s egs plus bands Imm Gran% 0.3 % 12/28/2024 4:46 AM EDT [facility] Comment:Automated count of m etamyelocytes, myelocytes and promyelocytes. Lymph Percent 29.5 % 12/28/2024 4:46 AM EDT [facility] Pickett Percent 7.5 % 12/28/2024 4:46 AM EDT [facility] Eos Percent 1.9 % 12/28/2024 4:46 AM EDT [facility] Baso Percent 0.6 % 12/28/2024 4:46 AM EDT [facility] Neut # 5.3 1.6 - 6.1 x10(3)/mcL 12/28/2024 4:46 AM EDT [facility] Comment:Neutrophils equals s egs plus bands IMMGRAN# 0.0 0.0 - 0.1 x10(3)/mcL 12/28/2024 4:46 AM EDT [facility] Comment:Automated count of m etamyelocytes, myelocytes and promyelocytes. An absolute IG <0.1 is reported as 0.0. Lymph # 2.6 1.2 - 3.9 x10(3)/mcL 12/28/2024 4:46 AM EDT [facility] Pickett # 0.7 0.3 - 0.9 x10(3)/mcL 12/28/2024 4:46 AM EDT [facility] Eos# 0.2 0.0 - 0.5 x10(3)/mcL 12/28/2024 4:46 AM EDT [facility] Baso # 0.1 0.0 - 0.1 x10(3)/mcL 12/28/2024 4:46 AM EDT [facility] Blood VENOUS BLOOD / Unknown Venipuncture / Unknown 12/28/2024 4:08 AM EDT 12/28/2024 4:33 AM EDT us Vishnu Penn MD HEMATOLOGY ORDERABLES Final R esult [facility] [address] [place] [address] , [place] [address] * IR TRANSCATH ARTERIAL INFUSION THROMBOLYSIS INITIAL TREAT (12/27/2024 11:08 AM EDT) Anatomical Region Laterality Modality Interventional R adiology Impressions 01/04/2025 12:11 AM EDT : Technically successful crossing occluded left popliteal artery and TPT and PT with catheter placed in the PT with initiation of thrombolytic therapy. The patient will be brought back in 24 hours for followup angiogram. NICOLAS [id number] Narrative 01/04/2025 12:11 AM EDT ACCESSION NUMBER: [id number]. DATE OF PROCEDURE: 12/27/2024. PREOPERATIVE DIAGNOSIS: Left lower extremity PAD (peripheral arterial disease) with nonhealing ulceration. POSTOPERATIVE DIAGNOSIS: Left lower extremity PAD (peripheral arterial disease) with nonhealing ulceration. PROCEDURES: Access of right common femoral artery with 5-Sudanese sheath with ultrasound guidance. Omni catheter placed in the aorta with aortogram with runoff. Omni catheter placed in the aortic bifurcation with aortoiliac angiogram with runoff. Crossing bifurcation with catheter placed in the left common femoral artery. Left lower extremity angiogram with runoff. Right lower extremity angiogram with runoff. 7-Sudanese Destination sheath in the left common femoral [...] patient was identified and brought to the Gluing Machine Operator. After adequate sedation was obtained, the patient was prepped and draped in the usual sterile fashion in supine position over the entire right lower abdomen and groin. The right common femoral artery was accessed with a large bore needle with ultrasound guidance. Through this needle, a wire was inserted and 5-Sudanese sheath was inserted. The right common femoral [...] heparin. After waiting for 5 minutes, the 5-Sudanese sheath was exchanged for a 7-Sudanese Destination sheath placed in the left common [...] back in 24 hours for followup angiogram. TIRuthie [id number] Narrative 01/04/2025 12:11 AM EDT ACCESSION NUMBER: [id number]. DATE OF PROCEDURE: 12/27/2024. PREOPERATIVE DIAGNOSIS: Left lower extremity PAD (peripheral arterial disease) with nonhealing ulceration. POSTOPERATIVE DIAGNOSIS: Left lower extremity PAD (peripheral arterial disease) with nonhealing ulceration. PROCEDURES: Access of right common femoral artery with 5-Sudanese sheath with ultrasound guidance. Omni catheter placed in the aorta with aortogram with runoff. Omni catheter placed in the aortic bifurcation with aortoiliac angiogram with runoff. Crossing bifurcation with catheter placed in the left common femoral artery. Left lower extremity angiogram with runoff. Right lower extremity angiogram with runoff. 7-Sudanese Destination sheath in the left common femoral [...] patient was identified and brought to the Gluing Machine Operator. After adequate sedation was obtained, the patient was prepped and draped in the usual sterile fashion in supine position over the entire right lower abdomen and groin. The right common femoral artery was accessed with a large bore needle with ultrasound guidance. Through this needle, a wire was inserted and 5-Sudanese sheath was inserted. The right common femoral [...] heparin. After waiting for 5 minutes, the 5-Sudanese sheath was exchanged for a 7-Sudanese Destination sheath placed in the left common [...] in 24 hours for followup angiogram. TID [id number] Narrative 01/04/2025 12:11 AM EDT ACCESSION NUMBER: [id number]. DATE OF PROCEDURE: 12/27/2024. PREOPERATIVE DIAGNOSIS: Left lower extremity PAD (peripheral arterial disease) with nonhealing ulceration. POSTOPERATIVE DIAGNOSIS: Left lower extremity PAD (peripheral arterial disease) with nonhealing ulceration. PROCEDURES: Access of right common femoral artery with 5-Sudanese sheath with ultrasound guidance. Omni catheter placed in the aorta with aortogram with runoff. Omni catheter placed in the aortic bifurcation with aortoiliac angiogram with runoff. Crossing bifurcation with catheter placed in the left common femoral artery. Left lower extremity angiogram with runoff. Right lower extremity angiogram with runoff. 7-Sudanese Destination sheath in the left common femoral [...] patient was identified and brought to the Gluing Machine Operator. After adequate sedation was obtained, the patient was prepped and draped in the usual sterile fashion in supine position over the entire right lower abdomen and groin. The right common femoral artery was accessed with a large bore needle with ultrasound guidance. Through this needle, a wire was inserted and 5-Sudanese sheath was inserted. The right common femoral [...] heparin. After waiting for 5 minutes, the 5-Sudanese sheath was exchanged for a 7-Sudanese Destination sheath placed in the left common [...] in 24 hours for followup angiogram. TID [id number] Narrative 01/04/2025 12:11 AM EDT ACCESSION NUMBER: [id number]. DATE OF PROCEDURE: 12/27/2024. PREOPERATIVE DIAGNOSIS: Left lower extremity PAD (peripheral arterial disease) with nonhealing ulceration. POSTOPERATIVE DIAGNOSIS: Left lower extremity PAD (peripheral arterial disease) with nonhealing ulceration. PROCEDURES: Access of right common femoral artery with 5-Sudanese sheath with ultrasound guidance. Omni catheter placed in the aorta with aortogram with runoff. Omni catheter placed in the aortic bifurcation with aortoiliac angiogram with runoff. Crossing bifurcation with catheter placed in the left common femoral artery. Left lower extremity angiogram with runoff. Right lower extremity angiogram with runoff. 7-Sudanese Destination sheath in the left common femoral [...] patient was identified and brought to the Gluing Machine Operator. After adequate sedation was obtained, the patient was prepped and draped in the usual sterile fashion in supine position over the entire right lower abdomen and groin. The right common femoral artery was accessed with a large bore needle with ultrasound guidance. Through this needle, a wire was inserted and 5-Sudanese sheath was inserted. The right common femoral [...] heparin. After waiting for 5 minutes, the 5-Sudanese sheath was exchanged for a 7-Sudanese Destination sheath placed in the left common [...] proximally for thrombolytic therapy. Vishnu Penn MD IMG IR ORDERABLES Final Resul t * BLOOD UREA NITROGEN (12/27/2024 9:23 AM EDT) Pathologist [facility] BUN 18 6 - 20 mg/dL 12/27/2024 9:39 AM EDT [facility] Blood VENOUS BLOOD / Unknown Venipuncture / Unknown 12/27/2024 9:23 AM EDT 12/27/2024 9:23 AM EDT Vishnu Penn MD CHEMISTRY ORDERABLES Final Re sult [facility] [address] [place] [address] * CREATININE (12/27/2024 9:23 AM EDT) Creatinine 0.76 0.51 - 1.30 mg/dL 12/27/2024 9:39 AM EDT [facility] eGFR (CKD-EPIcr 2020) 90 >=60 mL/min/1.7 3 m2 12/27/2024 9:39 AM EDT [facility] Comment:Estimated GFR was ca lculated using the CKD-EPIcr (2020) equation refit without race. The equation is recommended by the [employer] Kid[employer] - [employer] [employer] Neph[employer] Task Force. Blood VENOUS BLOOD / Unknown Venipuncture / Unknown 12/27/2024 9:23 AM EDT 12/27/2024 9:23 AM EDT us Vishnu Penn MD CHEMISTRY ORDERABLES Final Re sult [facility] [address] [place] [address] from Last 3 Months Insurance [employer] [place] Advance Directives For more information, please contact: [phone] * Full Code (Latest Code Status on File) Date Activated Date Inactivated Comments 12/27/2024 10:43 PM 01/01/2025 9:14 PM * Full Code Date Activated Date Inactivated Comments 05/28/2023 10:35 AM 06/11/2023 9:55 PM Care Teams Automatic Coil Machine Operator Relationship Specialty Start Date End Date William Hunter MD [address] [place] [address] [place] [id number] PCP - General Internal Medicine-Adolescent Medicine 05/28/23 González Gotti MD [address] [place] [address] [place] [address] Consulting Physician Internal Medicine - Clinical Cardiac Electrophysiology 04/05/17 Cristi Cleaning MD [address] [place] [address] [place] [address] Physician Internal Medicine-Cardiovascular Disease 04/05/17
== END 2025-03-23 23:59 | disposition home or self-care (01) ==
LOC: RAD 09:36
PROVIDERS: PCP Nurse Practitioner Family; Visit Provider Nurse Practitioner Family
DX: N63.22 Unspecified lump in the left breast, upper inner quadrant (principal)
CPT/HCPCS: 76641

== ENCOUNTER 2025-05-02 11:01 | Outpatient (CLI) | payer OTHER, SELFPAY ==
--- OUTSIDE RECORDS SUMMARY | 2024-12-30 17:30 | XMS_ITS ---
Author Organization [facility] Address [address] [place] [address] Care Team Providers Care Tour Coordinator Name Role Phone William Hunter Primary Care Provider Sarah Wing Unavailable [phone] Migration, Provider Unavailable Unavailable Allergies Allergen (clinical drug ingredient) Drug/Non Drug Allergy documented on EMR Reaction Allergy Type Onset Date Status Substance with 4-klbrdnt-5-methylg lutaryl-coenzyme A reductase inhibitor mechanism of action (substance) Statins couldnt walk Drug Allergy Active codeine Codeine Unknown Drug Allergy Active hydrocodone HYDROcodone itchy and nausea Drug Allergy Active [facility]AS[facility] FOR VISIT [facility] Encounter Medications Medication SIG (Take, Route, Frequency, Duration) Notes Start Date End Date Status Metoprolol Succinate ER 100 MG TAKE 1 AND 1/2 TABLET BY MOUTH TWICE DAILY; Duration: 30 days Active Aspirin 81 MG 1 TAB(S) ORALLY ONCE A DAY *Please review and pick correct strength-formula [facility]ion [facility] options. If intended option is not [...] Active Encounters Encounter Location Date Provider Diagnosis [place] [facility] [address] [facility] [address] [place] [address] 12/30/2024 Provider Migration Plan Of Treatment Medication [...] Notes * Rodo GLEZB:1965 (59 yo F)Acc No.[id number]:12/30/2024 Patient: Ashley NICOLE Provider: Janell elizabeth Migration :1965 Mamta ge:59 Y S ex:Female Date:12/30/2024 [id number] Pcp:William Hunter Subjective: * Chief Complaints: * 1 . Multum To [facility] Conversion Encounter. * Medical History: * Medications: T aking Aspirin 81 MG TABLET 1 TAB(S) ORALLY ONCE A DAY , Notes to Pharmacist: *Please review and pick correct strength-formulation from [employer] options. If intended option is not shown, [...] Electronic signature of Prov ider Migration on 05/02/2025 at 11:04 AM EDT Sign off status: Pending * Provider: Janell elizabeth Migration Date: 0 12/30/2024 Generated for Zuleima crockett/Joe/Farrukh on: 0 05/02/2025 11:04 AM EDT
--- OUTSIDE RECORDS SUMMARY | 2025-03-12 13:53 | XMS_ITS | Encounter Summary ---
Author Organization [place] [address] Care Team Providers Care Retail Coverage Merchandiser Name Role Phone González Gotti MD Unavailable [phone] Cristi Cleaning MD Unavailable [phone] William Hunter MD Primary Care Provider [phone] Reason for Referral * In Office Procedure (Routine) - Pending Review Specialty Diagnoses / Procedures Referred By Contac t Referred To Contact Diagnoses Stage III pressure ulcer of left heel (HCC) 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) PAD (peripheral artery disease) Procedures CT DEBRIDEMENT SUBCUTANEOUS TISSUE 1ST 20 SQ CM/< Kirt Dolan DPM [address] [place] [address] Phone: tel: fax: Referral ID Status Reason Start Date Expiration Date V isits Requested Visits Authorized [id number] Pending Review 03/12/2025 03/12/2026 1 1 * (Routine) - Pending Review Specialty Diagnoses / Procedures Referred By Contac t Referred To Contact Diagnoses Stage III pressure ulcer of left heel (HCC) Procedures [facility] PRIMARY DRESSING Kirt Dolan DPM [address] [place] [phone] Phone: tel: fax: Referral ID Status Reason Start Date Expiration Date V isits Requested Visits Authorized [id number] Pending Review 03/12/2025 03/12/2026 1 1 Reason for Visit * Reason Comments Non-healing Wound * Consultation (Routine) - Authorization Not Needed Specialty Diagnoses / Procedures Referred By Brian t Referred To Contact Wound Care Diagnoses Wound Care Procedures CT DEBRIDEMENT SUBCUTANEOUS TISSUE 1ST 20 SQ CM/< CT DEBRIDEMENT MUSCLE &/FASCIA 1ST 20 SQ CM/< CT DEBRIDEMENT BONE 1ST 20 SQ CM/< CT DEBRIDEMENT SUBCUTANEOUS TISSUE EA ADDL [address] DEBRIDEMENT MUSCLE &/FASCIA EA ADDL [address] DEBRIDEMENT BONE EACH ADDITIONAL [address] DEBRIDEMENT OPEN WOUND FIRST 20 SQ CM/< CT DEBRIDEMENT OPN WND EA ADDL 20 SQ CM/PRT THEREOF [facility] [place] [address] [address] [facility] [place] [address] Phone: tel: fax: Referral ID Status Reason Start Date Expiration Date Visits Requested Visits Authorized [id number] Authorization Not Needed Specialty Services Required 5 01/08/2026 99 99 Encounter Details Date Type Department Care Team (Late st Contact Info) Description 03/12/2025 1:53 PM EDT - 03/12/2025 11:59 PM EDT Hospital Encounter [facility] [address] [place] [address] Kirt Dolan DPM [address] [place] [phone] 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) (Primary Dx); Stage III pressure ulcer of left heel (HCC); PAD (peripheral artery disease) Discharge Disposition: Home or Self Care Social History Tobacco Use Types Packs/Day Years Used Date Smoking Tobacco: Former Cigarettes 0.3 40 0 12/26/1981 - 12/26/2021 Passive Smoke Exposure: Past Smokeless Tobacco: Never Alcohol Use Standard Drinks/Week Comments Not Currently 0 (1 standard drink = 0.6 oz pur e alcohol) [facility] Utilities Answer Date Recorded In the past 12 months has e [employer], gas, oil, or water company threatened to shut off services in your home? No 12/28/2024 Overall Financial Resource Strain (CARDIA) Answe r Date Recorded How hard is it for you to pa y for the very basics like food, housing, medical care, and heating? Not hard at all 12/28/2024 PHQ-2 Answer Date Recorded PHQ-2 Total Score 0 [facility]28[facility]2024 [facility] - Occupational Stress Questionnaire Answer Date [...] things needed for daily living? No 05/29/2023 [facility] IP Transportation Answer D ate [...] Sign Reading Time Taken Comments Blood Pressure 121/76 03/12/2025 2:02 PM EDT Pulse 70 03/12/2025 2:02 PM EDT Temperature 37 C (98.6 F) 03/12/2025 2:02 PM EDT Respiratory Rate 18 03/12/2025 2:02 PM EDT Oxygen Saturation - - Inhaled [...] Take 5 mg by mouth daily. 09/04/2022 apixaban (ELIQUIS) 5 mg Oral Tablet Take [...] days. fluticasone propionate (FLONASE) 50 mcg/actuation Nasl [place], Suspension 1 spay each nostril twice daily 1 Each 3 06/28/2023 gabapentin (NEURONTIN) 300 mg Oral Capsule Take 300 mg by mouth 2 times daily. Takes every other day. hydroCHLOROthiazi de (MICROZIDE) 12.5 mg Oral Capsule Take 25 mg by mouth daily. 11/24/2022 isosorbide mononitrate (IMDUR) 120 mg Oral Tablet [...] GONE -- FINISH ALL MEDICINE -- 12/05/2024 hydrOXYzine (ATARAX) 25 mg Oral Tablet 1 tab(s) orally 2 times a day for 30 days 06/24/2023 oxyCODONE-acetami nophen (PERCOCET) 5-325 mg Oral Tablet Take 1-2 Tablets by mouth every 4 hours as needed for Acute Pain (R52). 30 Tablet 06/11/2023 12:19 PM EDT 06/11/2023 oxymetazoline (AFRIN) 0.05 % [place], Non-Aerosol 1 [place] by Nasal route as needed for Congestion (30 min. prior to HBO2-PRN, difficulty clearing ears.). 06/28/2023 documented as of this encounter Discharge Disposition Disposition Code Departure Means Destination Home or Self Care documented in this encounter Progress Notes * Kirt Dolan, ROGER - 03/12/2025 2:00 PM EDT Date of Visit:03/12/2025 Progress Note HPI Ashley Ding is a 59 y.o. year old female patient who presents today for wound evaluation and follow-up. Patient has a ischemic/pressure ulcer(s) which is (are) located on the plantar left heel. Patient denies any spreading redness or purulent discharge. Believes her wound healing has stalled to the left foot. Dressing her wound as instructed. Trying to be mindful of her activity. Ongoing pain right lower extremity. Has appoint with vascular next week. Denies any acute ischemia or necrosis. Past Medical History: Diagnosis Date Anesthesia complication only with phenergan, alarming how long it takes her to wake up Asthma Bradycardia CAD (coronary artery disease) Cardiac pacemaker [facility] Dual PPM 11/05/2016 - Dr. Cleaning Chronic systolic heart failure ([facility]) COPD (chronic obstructive pulmonary disease) ([facility]) Depression with anxiety Emphysema, unspecified ([facility]) Essential hypertension Headache Heartburn History of cardiac cath 03/23/2017 Stent placed in Right leg 03/23/2017 HLD (hyperlipidemia) Hypertension [place] (myocardial infarction) ([facility]) 06/2016 Pacemaker Post-operative nausea and vomiting Sinus node dysfunction ([facility]) [facility] Dual PPM 11/05/2016 - Dr. 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 12/07/2023 Neuropathy 12/07/2023 Non-pressure chronic ulcer of skin of other sites with unspecified severity ([facility]) 12/07/2023 Palpitations 12/07/2023 Atrial fibrillation with rapid ventricular response ([facility]) 12/07/2023 Seasonal allergic rhinitis 12/07/2023 Sinusitis 12/07/2023 Stented coronary artery 12/07/2023 Typical angina 12/07/2023 Ventricular fibrillation ([facility]) 12/07/2023 [address] fibrillation seen on court monitor ([facility]) 12/07/2023 Ventricular tachyarrhythmia ([facility]) 12/07/2023 Failed flap 06/28/2023 Skin flap necrosis ([facility]) 06/28/2023 Atherosclerosis of artery of extremity with ulceration ([facility]) 06/02/2023 PAD (peripheral artery disease) 06/01/2023 S/P foot surgery 06/01/2023 Cellulitis of left lower extremity 05/28/2023 Open wound of left foot 04/26/2023 Hammertoe of left foot 06/08/2022 Pain in left foot 06/08/2022 Gangrene of left foot ([facility]) 06/08/2022 Vaping nicotine dependence, non-tobacco product 03/05/2022 [...] 05/19/2023 .; Surgeon: Jabari Hill DPM; Location: [facility]; Service: Orthopedics FEMUR FRACTURE SURGERY Right right femur fx repair FOOT SURGERY FOOT SURGERY Left 12/23/2022 Left foot heel and second and third toe debridement with application of skin graft substitute. ; Surgeon: Jabari Hill DPM; Location: [facility]; Service: Orthopedics FOOT SURGERY Left 02/10/2023 Surgeon: Jabari Hill DPM; Location: [facility]; Service: Orthopedics FOOT SURGERY Left 06/06/2023 left FOOT TRANSMETATARSAL amputation; Surgeon: Jabari Hill DPM; Location: [facility]; Service: Podiatry HAMMER TOE SURGERY Left 06/15/2022 Left foot Correction of hammer toe deformity with arthroplasty second and third toe. Left foot Application of skin graft substitute.; Surgeon: Jabari Hill DPM; Location: [facility]; Service: Podiatry HIP [...] IR REVAS FEM POP ART UNILAT W BOTANICAL TECHNICAL OFFICER 03/13/2022 IR REVAS FEM POP ART UNILAT W BOTANICAL TECHNICAL OFFICER 03/13/2022 Kashif Wong MD EDG IR IR REVAS FEM POP ART UNILAT W BOTANICAL TECHNICAL OFFICER 06/02/2023 IR REVAS FEM POP ART UNILAT W BOTANICAL TECHNICAL OFFICER 06/02/2023 Vishnu Penn MD EDG IR IR REVAS FEM POP ART UNILAT W BOTANICAL TECHNICAL OFFICER 12/28/2024 IR REVAS FEM POP ART UNILAT W BOTANICAL TECHNICAL OFFICER 12/28/2024 Vishnu Penn MD EDG IR IR [...] 05/19/2023 .; Surgeon: Jabari Hill DPM; Location: [facility]; Service: Orthopedics SKIN GRAFT Left 06/15/2022 Surgeon: Jabari Hill DPM; Location: [facility]; Service: Podiatry SKIN GRAFT Left 12/23/2022 . ; Surgeon: Jabari Hill DPM; Location: [facility]; Service: Orthopedics SKIN GRAFT 02/10/2023 Surgeon: Jabari Hill DPM; Location: [facility]; Service: Orthopedics TOE AMPUTATION Left 02/10/2023 Left foot second toe amputation, Left foot excisional debridement with application of skin graft substitute; Surgeon: Jabari Hill DPM; Location: [facility]; Service: Orthopedics TOE AMPUTATION Left 05/19/2023 Left foot, amputation of third toe. Left foot, wound debridment application. Left foot, skin graft substitute. Left foot wound debridment closure.; Surgeon: Jabari Hill DPM; Location: [facility]; Service: Orthopedics Family History Problem Relation Age of Onset Hypertension Mother Heart Disease Mother Cancer Mother Diabetes Father Hypertension Father Cancer Father Anesth Problems Neg Hx Social History Tobacco Use Smoking status: Former Current packs/day: 0.00 Average packs/day: 0.3 packs/day for 40.0 years (10.0 ttl pk-yrs) Types: Cigarettes Start date: 12/26/1981 Quit date: 12/26/2021 Years since quittin.2 Passive exposure: Past Smokeless tobacco: Never Substance [...] days. fluticasone propionate (FLONASE) 50 mcg/actuation Nasl [place], Suspension 1 spay each nostril twice daily [...] days (Patient not taking: Reported on 02/07/2025) oxyCODONE-acetaminophen (PERCOCET) 5-325 mg Oral Tablet Take 1-2 Tablets by mouth every 4 hours as needed for Acute Pain (R52). (Patient not taking: Reported on 02/07/2025) 30 Tablet 0 oxymetazoline (AFRIN) 0.05 % Nasl [place], Non-Aerosol 1 [place] by Nasal route as needed for Congestion [...] days. fluticasone propionate (FLONASE) 50 mcg/actuation Nasl [place], Suspension 1 spay each nostril twice daily [...] days (Patient not taking: Reported on 02/07/2025) oxyCODONE-acetaminophen (PERCOCET) 5-325 mg Oral Tablet Take 1-2 Tablets by mouth every 4 hours as needed for Acute Pain (R52). (Patient not taking: Reported on 02/07/2025) 30 Tablet 0 oxymetazoline (AFRIN) 0.05 % Nasl [place], Non-Aerosol 1 [place] by Nasal route as needed for Congestion (30 min. prior to HBO2-PRN, difficulty clearing ears.). (Patient not taking: Reported on 02/07/2025) No current facility-administered medications on file prior to encounter. Outpatient Medications Marked as Taking for the 03/12/25 encounter (Hospital Encounter) with Kirt Dolan DPM Medication Sig Dispense Refill albuterol (PROVENTIL HFA;VENTOLIN [...] days. fluticasone propionate (FLONASE) 50 mcg/actuation Nasl [place], Suspension 1 spay each nostril twice daily [...] ORAL Take 1 Tablet by mouth daily. Allergies Allergen Reactions Atorvastatin Myalgia Ezetimibe Myalgia Rosuvastatin Myalgia Simvastatin Myalgia Mkqzeom-Vsz-Abs Reductase Inhibitors Other (See Comments) Joint pain Codeine Itching nausea Hydrocodone Itching nausea Phenergan [Promethazine] Other (See Comments) Made legs restless And also very sleepy ROS See HPI for further details. Relevant review of systems otherwise negative. Physical Exam Vitals: 03/12/25 1402 BP: 121/76 Pulse: 70 Resp: 18 Temp: 98.6 ??F (37 ??C) TempSrc: Oral Nonpalpable pulses right. Palpable DP, nonpalpable PT left. Left foot is warm and well-perfused status post intervention. No acute ischemia or necrosis to the right lower extremity. Mild edema noted bilaterally. No calor. Full-thickness ulceration noted to the plantar left heel with exposed subcutaneous tissues. More fibrotic slough today. No ascending cellulitis or lymphangitis. No purulent [...] Results Component Value Date SEDRATE 17 05/28/2023 VA US LOWER EXTREMITY ARTERIAL DUPLEX COMPLETE: 02/20/2025 Result Text IMPRESSION Conclusions * Right: * RODOLFO: 0.63 (DPA, distal BOTANICAL TECHNICAL OFFICER occluded) / TBI: 0, absent waveform. There is an occlusion of the distal posterior tibial artery. Dampened, biphasic flow of the proximal and mid posterior tibial artery. Mild to moderate plaque noted in the arteries of the right lower extremity. * Left: * RODOLFO: 1.29 (BOTANICAL TECHNICAL OFFICER) / TBI: 0, metatarsal amputation. 20-49 % stenosis of the profunda, 145 cm/s. There is an occlusion of the proximal anterior tibial artery and the mid peroneal artery. Mild to moderate plaque noted in the arteries of the left lower extremity. Assessment and Plan Ashley was seen today for non-healing wound. Diagnoses and all orders for this visit: 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) - CT DEBRIDEMENT SUBCUTANEOUS TISSUE 1ST 20 SQ CM/< Stage III pressure ulcer of left heel (HCC) - [facility] PRIMARY DRESSING - CT DEBRIDEMENT SUBCUTANEOUS TISSUE 1ST 20 SQ CM/< PAD (peripheral artery disease) - CT DEBRIDEMENT SUBCUTANEOUS TISSUE 1ST 20 SQ CM/< 1. Continue standard ulcer therapy of this [...] were given 5. Follow- up 2 weeks. Excisional debridement subcutaneous tissues. No acute signs of infection. Collagen, DSD. Vascularly optimized left lower extremity. Arterial ultrasound reviewed, severe PAD right. Has appointment with vascular 03/20. Appreciate their help. Offloading of utmost importance. Check feet daily, do not walk barefoot. Tight glycemic management. Increase protein intake. Vascular, wound care charts reviewed. Imaging and relevant labs reviewed. All of the patient's questions, comments and concerns were addressed. Patient is agreeable to plan. Kirt Dolan DPM, FACFAS 03/12/2025 6:57 PM Disclaimer - This note was completed [...] Patient Instructions - Balbina Tong RN - 03/12/2025 2:00 PM EDT HOME-CARE INSTRUCTIONS FOLLOWING YOUR WOUND [...] Care Center in [address] Pelletier Left heel- collagen, adaptic overlay, 4x4, roll gauze, every other day. Left TMA site- paint with betadine daily. 01/08 [employer] has been contacted to obtain [...] free to reach out to our community development officer, Hanna Riggs at [phone] for any discussion. WHO TO CALL FOR PROBLEMS: Please call the OP wound care center with any problems or issues you may have after your visit or though the week. Each patient is assigned a counter caser who can assist with issues you may be having. Individual office numbers are listed below. Press 1 for immediate or schedule needs, press 2 for the nursing line. The nurse line is for non-emergent needs and will be answered within 24 hours duringbus days. If you have a more immediate concern, press option #1. Office numbers: [phone] [place] [email or web address]-[phone] [facility] [phone] Our offices do not have an on-call provider. If you have emergent needs after hours please contact your primary care provider. You may also utilize the [facility] Nurse NOW Helpline: 7-380-5GIS-NOW for after-hours needs to get in contact with a nurse for assistance. * Addendum Note - Balbina Tong RN - 03/12/2025 2:00 PM EDTEncounter addended by: Balbina Tong, RN on: 03/13/2025 2:29 PM Actions taken: Flowsheet accepted, Charge Capture section accepted documented in this encounter Plan of Treatment Upcoming Encounters Date Type Department Care Team (Late st Contact Info) Description 05/07/2025 1:45 PM EDT Appointment [facility] [address] [place] [address] Jabari Corado Jr., MD [address] [place] [id number] 05/10/2025 10:20 AM EDT Office Visit [facility] [address] [place] [address] [place] [phone] JanuaryNette APRN [address] [place] [phone] 11/12/2025 1:30 PM EST Appointment [facility] [address] [place] [phone] Nette Jalloh APRN [address] [place] [address] [phone] 11/12/2025 2:40 PM EST Office Visit [facility] [address] [place] [address] [place] [phone] Nette Jalloh APRN [address] [place] [address] [phone] Scheduled Orders Name Type Priority Associated Diagnoses Orde r Schedule CT DEBRIDEMENT SUBCUTANEOUS TISSUE 1ST 20 SQ CM/< CT Charge Routine Stage III pressure ulcer of left heel (HCC) 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) PAD (peripheral artery disease) Ordered: 03/12/2025 documented as of this encounter Goals Goal Patient Goal Type Associated Problems Recent Progress Patient-Stated? Author Wound Healing General On track(2024 3:09 PM EDT) Tsering Doran RN Note: Wound [...] immobility, friction and incontinence. Assess wound size, anun wound, drainage and odor. Educate patient and [...] disease) Unspecified disorders of arteries and arterioles documented in this encounter Orders Nursing Count Last Ordered Date First Orde red Date [facility] PRIMARY DRESSING 1 03/12/2025 documented in this encounter Care Teams Retail Coverage Merchandiser Relationship Specialty Start Date End Date William Hunter MD [facility] [place] [phone] PCP - General Internal Medicine-Adolescent Medicine 05/28/23 González Gotti MD [address] [facility] [place] [address] Consulting Physician Internal Medicine - Clinical Cardiac Electrophysiology 04/05/17 Cristi Cleaning MD [address] [place] [address] [place] [address] Physician Internal Medicine-Cardiovascular Disease 04/05/17 documented as of this encounter
--- OUTSIDE RECORDS SUMMARY | 2025-03-21 05:38 | XMS_ITS ---
Author Organization [facility] Address [address] [place] [address] Care Team Providers Care Senior Major Gifts Officer Name Role Phone William Hunter Primary Care Provider Sarah Wing Unavailable [phone] REASON FOR VISIT ultrasound order Encounters Encounter Location Date Provider Diagnosis [facility] [address] [place] [address] 03/21/2025 Sarah Wing Abnormal mammogram R92.8 Assessments Encounter Date Diagnosis (ICD Code) Assessment Notes Treatment Notes Treatment Clinical Notes Section Notes 03/21/2025 Abnormal mammogram (ICD-10 - R92.8) Plan Of Treatment Pending Test Test Name Order Date Ultrasound : Breast, Left 03/21/2025 Progress Notes * Oz GLEZIdaliaB:1965 (59 yo F)Acc No.[id number]:03/21/2025 Patient: Ashley NICOLE :1965 A ge:59 Y S ex:Female Address:[place], [address] Subjective: * Chief Complaints: * U ltrasound order * Medical History: * Surgical History: * Hospitalization/Major Diagno stic Procedure: * Medications: Objective: * Vitals: * Physical Examination: Assessment: * Assessment: 1. A bnormal mammogram - R92.8 Plan: * Treatment: * Procedure Codes: * true * Date: Generated for Zuleima crockett/Joe/Farrukh on: 0 05/02/2025 11:04 AM EDT
--- OUTSIDE RECORDS SUMMARY | 2025-03-26 13:15 | XMS_ITS | Encounter Summary ---
Author Organization [place] [address] Care Team Providers Care Biofuels Production Technician Name Role Phone González Gotti MD Unavailable [phone] Cristi Cleaning MD Unavailable [phone] William Hunter MD Primary Care Provider [phone] Reason for Referral * In Office Procedure (Routine) - Pending Review Specialty Diagnoses / Procedures Referred By Contac t Referred To Contact Diagnoses Pressure ulcer of left heel, stage 4 (HCC) Procedures ME DEBRIDEMENT MUSCLE &/FASCIA 1ST 20 SQ CM/< Cristi Pelletier DPM [address] [place] [address] Phone: tel: fax: Referral ID Status Reason Start Date Expiration Date V isits Requested Visits Authorized [id number] Pending Review 04/01/2025 04/01/2026 1 1 * (Routine) - Pending Review Specialty Diagnoses / Procedures Referred By Contac t Referred To Contact Diagnoses Pressure ulcer of left heel, stage 4 (HCC) Procedures [facility]B [facility] PRIMARY [facility] Cristi Pelletier DPM [address] [address] Phone: tel: fax: Referral ID Status Reason Start Date Expiration Date V isits Requested Visits Authorized [id number] Pending Review 03/26/2025 03/26/2026 1 1 Reason for Visit * Reason Comments Wound Check * Consultation (Routine) - Authorization Not Needed Specialty Diagnoses / Procedures Referred By Brian t Referred To Contact Wound Care Diagnoses Wound Care Procedures ME DEBRIDEMENT SUBCUTANEOUS TISSUE 1ST 20 SQ CM/< ME DEBRIDEMENT MUSCLE &/FASCIA 1ST 20 SQ CM/< ME DEBRIDEMENT BONE 1ST 20 SQ CM/< ME DEBRIDEMENT SUBCUTANEOUS TISSUE EA ADDL 20 SQ CM ME DEBRIDEMENT MUSCLE &/FASCIA EA ADDL 20 SQ CM ME DEBRIDEMENT BONE EACH ADDITIONAL 20 SQ CM ME DEBRIDEMENT OPEN WOUND FIRST 20 SQ CM/< ME DEBRIDEMENT OPN WND EA ADDL 20 SQ CM/PRT THEREOF [facility] [address] [facility] [place] [address] Phone: tel: fax: Referral ID Status Reason Start Date Expiration Date Visits Requested Visits Authorized [id number] Authorization Not Needed Specialty Services Required 5 01/08/2026 99 99 Encounter Details Date Type Department Care Team (Latest Contact Info) Description 03/26/2025 1:15 PM EDT - 03/26/2025 11:59 PM EDT Hospital Encounter [facility] [address] [place] [address] Cristi Pelletier DPM [address] [address] Pressure ulcer of left heel, stage 4 (HCC) (Primary Dx) Discharge Disposition: Home or Self Care Social History Tobacco Use Types Packs/Day Years Used Date Smoking Tobacco: Former Cigarettes 0.3 40 0 12/26/1981 - 12/26/2021 Passive Smoke Exposure: Past Smokeless Tobacco: Never Alcohol Use Standard Drinks/Week Comments Not Currently 0 (1 standard drink = 0.6 oz pur e alcohol) [facility] Utilities Answer Date Recorded In the past 12 months has e [employer], gas, oil, or water company threatened to shut off services in your home? No 12/28/2024 Overall Financial Resource Strain (CARDIA) Answe r Date Recorded How hard is it for you to pa y for the very basics like food, housing, medical care, and heating? Not hard at all 12/28/2024 PHQ-2 Answer Date Recorded PHQ-2 Total Score 0 12/28/2024 [facility] - Occupational Stress [...] needed for daily living? No 05/29/2023 [facility] IP Transportation Answer D ate [...] Sign Reading Time Taken Comments Blood Pressure 126/73 03/26/2025 1:41 PM EDT Pulse 69 03/26/2025 1:41 PM EDT Temperature 36.2 C (97.2 F) 03/26/2025 1:41 PM EDT Respiratory Rate 16 03/26/2025 1:41 PM EDT Oxygen Saturation - - Inhaled [...] days. fluticasone propionate (FLONASE) 50 mcg/actuation Nasl [place], Suspension 1 spay each nostril twice daily [...] EDT 06/11/2023 oxymetazoline (AFRIN) 0.05 % Nasl [place], Non-Aerosol 1 [place] by Nasal route as needed for Congestion (30 min. prior to HBO2-PRN, difficulty clearing ears.). 06/28/2023 documented as of this encounter Discharge Disposition Disposition Code Departure Means Destination Home or Self Care documented in this encounter Progress Notes * Cristi Pelletier DPM - 03/26/2025 1:15 PM EDT Date of Visit:03/26/2025 Progress Note HPI Ashley Ding is a 59 y.o. year old female patient who presents today for wound evaluation and follow-up. Eval chronic ulcer of the left heel Past Medical History: Diagnosis Date Anesthesia complication only with phenergan, alarming how long it takes her to wake up Asthma Bradycardia CAD (coronary artery disease) Cardiac pacemaker [facility] Dual PPM 11/05/2016 - Dr. Cleaning Chronic systolic heart failure ([facility]) COPD (chronic obstructive pulmonary disease) ([facility]) Depression with anxiety Emphysema, unspecified ([facility]) Essential hypertension Headache Heartburn History of cardiac cath 03/23/2017 Stent placed in Right leg 03/23/2017 HLD (hyperlipidemia) Hypertension AL (myocardial infarction) ([facility]) 06/2016 Pacemaker Post-operative nausea and vomiting Sinus node dysfunction ([facility]) 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 Cleaning [...] 05/19/2023 .; Surgeon: Jabari Hill DPM; Location: [facility] MAIN OR; Service: Orthopedics FEMUR FRACTURE SURGERY Right right femur fx repair FOOT SURGERY FOOT SURGERY Left 12/23/2022 Left foot heel and second and third toe debridement with application of skin graft substitute. ; Surgeon: Jabari Hill DPM; Location: [facility] MA[facility] OR; Service: Orthopedics FOOT SURGERY Left 02/10/2023 Surgeon: Jabari Hill DPM; Location: [facility] MA[facility] OR; Service: Orthopedics FOOT SURGERY Left 06/06/2023 left FOOT TRANSMETATARSAL amputation; Surgeon: Jabari Hill DPM; Location: [facility] MAIN OR; Service: Podiatry HAMMER TOE SURGERY Left 06/15/2022 Left foot Correction of hammer toe deformity with arthroplasty second and third toe. Left foot Application of skin graft substitute.; Surgeon: Jabari Hill DPM; Location: [facility] MAIN OR; Service: Podiatry HIP [...] IR REVAS FEM POP ART UNILAT W PSYCHIATRIC SECRETARY 03/13/2022 IR REVAS FEM POP ART UNILAT W PSYCHIATRIC SECRETARY 03/13/2022 Kashif Wong MD [facility] IR IR REVAS FEM POP ART UNILAT W PSYCHIATRIC SECRETARY 06/02/2023 IR REVAS FEM POP ART UNILAT W PSYCHIATRIC SECRETARY 06/02/2023 Vishnu Penn MD [facility] IR IR REVAS FEM POP ART UNILAT W PSYCHIATRIC SECRETARY 12/28/2024 IR REVAS FEM POP ART UNILAT W PSYCHIATRIC SECRETARY 12/28/2024 Vishnu Penn MD [facility]G IR IR [...] 05/19/2023 .; Surgeon: Jabari Hill DPM; Location: [facility] MA[facility] OR; Service: Orthopedics SKIN GRAFT Left 06/15/2022 Surgeon: Jabari Hill DPM; Location: [facility] MA[facility] OR; Service: Podiatry SKIN GRAFT Left 12/23/2022 . ; Surgeon: Jabari Hill DPM; Location: [facility] OR; Service: Orthopedics SKIN GRAFT 02/10/2023 Surgeon: Jabari Hill DPM; Location: [facility] OR; Service: Orthopedics TOE AMPUTATION Left 02/10/2023 Left foot second toe amputation, Left foot excisional debridement with application of skin graft substitute; Surgeon: Jabari Hill DPM; Location: [facility]; Service: Orthopedics TOE AMPUTATION Left 05/19/2023 Left foot, amputation of third toe. Left foot, wound debridment application. Left foot, skin graft substitute. Left foot wound debridment closure.; Surgeon: Jabari Hill DPM; Location: [facility]; Service: Orthopedics Current [...] days. fluticasone propionate (FLONASE) 50 mcg/actuation Nasl [place], Suspension 1 spay each nostril twice daily [...] Chest pain. oxymetazoline (AFRIN) 0.05 % Nasl [place], Non-Aerosol 1 [place] by Nasal route as needed for Congestion (30 min. prior to HBO2-PRN, difficulty clearing ears.). pantoprazole (PROTONIX) 40 mg Oral Tablet, Delayed [...] MEDICINE -- (Patient not taking: Reported on 03/27/2025) oxyCODONE-acetaminophen (PERCOCET) 5-325 mg Oral Tablet Take 1-2 Tablets by mouth every 4 hours as needed for Acute Pain (R52). (Patient not taking: Reported on 03/27/2025) 30 Tablet 0 No current facility-administered medications for this encounter. Allergies Allergen Reactions Atorvastatin Myalgia Ezetimibe Myalgia Rosuvastatin Myalgia Simvastatin Myalgia Dcvphoj-Lcu-Ufr Reductase Inhibitors Other (See Comments) Joint pain Codeine Itching nausea Hydrocodone Itching nausea Phenergan [Promethazine] Other (See Comments) Made legs restless And also very sleepy ROS See HPI for further details. Relevant review of systems otherwise negative. Physical Exam Vitals: 03/26/25 1341 BP: 126/73 Pulse: 69 Resp: 16 Temp: 97.2 ??F (36.2 ??C) TempSrc: Oral Ulcer Progress and Procedure Please refer to the LDA for details of ulcer progress and procedure. Ulcer evaluated left heel to fascia No gross evidence of infection No abscess or sinus formation No fluctuance No malodor No ascending cellulitis or lymphangitis No gross necrosis of wound edges or base Wound bed appears viable Evaluation of patients peripheral nerve sensitivity indicates elements of peripheral neuropathy with decreased or absent ability to discern sharp and dull, light touch, and decreased proprioception. Protective sensation is greatly reduced contributing to current condition. Does have a palpable pulse Assessment and Plan Ashley was seen today for wound check. Diagnoses and all orders for this visit: Pressure ulcer of left heel, stage 4 (HCC) - AMB [facility] PRIMARY [facility] - ME DEBRIDEMENT MUSCLE &/FASCIA 1ST 20 SQ CM/< [...] were given 5. Follow- up 1 week Discussed the necessity of offloading the affected area to reduce pressure to allow for healing andat a minimum to reduce the possibility of progression of the ulcer. Advised patient that healing will not progress if the same pressures that caused the wound are allowed to continue unabated. Discussed measures to offload Daily dressing change Sharp excisional debridement left heel utilizing curette down to and including subcutaneous tissue and fascia <20 sq cm with bleeding and subsequent hemostasis. Patient tolerated the procedure well. No significant episodes of pain. No adverse events. Educated on signs of infection including redness, swelling, increase pain, increased drainage especially pus as well as increasing size of the wound, and change in odor from the wound or bandages. Asked that we be notified as soon as developments arise so that it can be addressed as soon as possible documented in this encounter Miscellaneous Notes * Patient Instructions - Rosmery Cotto RN - 03/26/2025 1:15 PM EDT HOME-CARE INSTRUCTIONS FOLLOWING YOUR WOUND [...] overlay, 4x4, roll gauze, every other day. 03/26 [facility] has been contacted to obtain your wound [...] feel free to reach out to our machine made shoe unit worker, Hanna Riggs at [phone] for any discussion. WHO TO CALL FOR PROBLEMS: Please call the OP wound care center with any problems or issues you may have after your visit or though the week. Each patient is assigned a case picker who can assist with issues you may be having. Individual office numbers are listed below. Press 1 for immediate or schedule needs, press 2 for the nursing line. The nurse line is for non-emergent needs and will be answered within 24 hours duringbusiness days. If you have a more immediate concern, press option #1. Office numbers: [phone] [place]-[phone] [place]- [phone] Our offices do not have an on-call provider. If you have emergent needs after hours please contact your primary care provider. You may also utilize the [facility] Nurse NOW Helpline: 0-020-8PSD-NOW for after-hours needs to get in contact with a nurse for assistance. documented in this encounter Plan of Treatment Upcoming Encounters Date Type Department Care Team (Late st Contact Info) Description 05/07/2025 1:45 PM EDT Appointment [facility] González [address] [place] [address] Jabari Corado Jr., MD [address] [place] [address] [address] [place] [address] 05/10/2025 10:20 AM EDT Office Visit [facility] [address] [place] [address] [address] [place] [address] JanuaryNette APRN [address] [place] [address] [address] [place] [address] 11/12/2025 1:30 PM EST Appointment [facility] [address] [place] [address] Nette Jalloh APRN [address] [place] [address] [address] [place] [address] 11/12/2025 2:40 PM EST Office Visit [facility] [address] [facility] [address] [place] [address] Nette Jalloh [address] [place], [place] [id number] Scheduled Orders Name Type Priority Associated Diagnoses Orde r Schedule ME DEBRIDEMENT MUSCLE &/FASCIA 1ST 20 SQ CM/< ME Charge Routine Pressure ulcer of left heel, stage 4 (HCC) Ordered: 04/01/2025 documented as of this encounter Goals Goal Patient Goal Type Associated Problems Recent Progress Patient-Stated? Author Wound Healing General On track(2024 3:09 PM EDT) Tsering Doran, RN Note: Wound [...] of left heel, stage 4 (HCC)- Primary documented in this encounter Administered Medications Inactive Administered Medications - up to 1 most recent administrations Medication Order MAR Action Action Date Dose Rate Site lidocaine (XYLOCAINE) 5 % ointment Topical, ONCE, 1 dose, On 03/26/25 at 1345, Application site: foot Given 03/26/2025 1:43 PM EDT documented in this encounter Orders Medications Ordered That Daniel ht Not Have Been Administered Count Last Ordered Date First Ordered Date lidocaine (XYLOCAINE) 5 % ointment 1 2024 Nursing Count Last Ordered Date First Orde red Date [facility]B [facility] PRIMARY DRESSING 1 03/26/2025 documented in this encounter Care Teams Biofuels Production Technician Relationship Specialty Start Date End Date William Hunter MD [address] [place] [id number] PCP - General Internal Medicine-Adolescent Medicine 05/28/23 González Gotti MD [address] [place] [address] [place] [address] Consulting Physician Internal Medicine - Clinical Cardiac Electrophysiology 04/05/17 Cristi Cleaning MD [address] [place] [address] [place] [address] Physician Internal Medicine-Cardiovascular Disease 04/05/17 documented as of this encounter
--- OUTSIDE RECORDS SUMMARY | 2025-03-27 08:00 | XMS_ITS | Encounter Summary ---
Author Organization [facility] [place] [address] Care Team Providers Care Director Of Photography Name Role Phone González Gotti MD Unavailable [phone] Cristi Cleaning MD Unavailable [phone] William Hunter MD Primary Care Provider [phone] Reason for Referral * Vascular Imaging (Routine) - Pending Review Specialty Diagnoses / Procedures Referred By Brian villavicencio Referred To Contact Radiology Diagnoses PAD (peripheral artery disease) Small vessel disease Procedures [facility] LOWER EXTREMITY ARTERIAL DUPLEX COMPLETE Vishnu Penn MD [address] [place] [address] [address] [place] [address] Phone: tel: fax: Referral ID Status Reason Start Date Expiration Date V isits Requested Visits Authorized [id number] Pending Review 03/27/2025 03/27/2026 1 1 Reason for Visit * Reason Comments Peripheral Arterial Disease (PAD) * Surgical (Routine) - Pending Review Specialty Diagnoses / Procedures Referred By Brian villavicencio Referred To Contact Surgery-Vascular Surgery / Vascular Surgery Diagnoses 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) Procedures IA OFFICE/OUTPATIENT NEW MODERATE MDM 45 MINUTES Kirt Dolan DPM [address] [facility] [address] [place] [address] Phone: tel: fax: Vishnu Penn MD [address] [place] [address] [address] [place] [address] Phone: tel: fax: Referral ID Status Reason Start Date Expiration Date Visits Requested Visits Authorized [id number] Pending Review Specialty Services Required 02/26/2025 02/26/2026 1 1 Encounter Details Date Type Department Care Team (Phani st Contact Info) Description 03/27/2025 8:00 AM EDT Office Visit [facility] [address] [facility] [address] [place] [address] Vishnu Penn MD [address] [facility] [address] [place], [place] [id number] PAD (peripheral artery disease) (Primary Dx); Former smoker-quit 2021; Small vessel disease Social History Tobacco Use Types Packs/Day Years Used Date Smoking Tobacco: Former Cigarettes 0.3 40 0 12/26/1981 - 12/26/2021 Passive Smoke Exposure: Past Smokeless Tobacco: Never Tobacco Cessation:Counseling Given: Not Answered Alcohol Use Standard Drinks/Week Comments Not Currently 0 (1 standard drink = 0.6 oz pur e alcohol) [facility] Utilities Answer Date Recorded In the past 12 months has [employer] electric, gas, oil, or water company threatened to shut off services in your home? No 12/28/2024 Overall Financial Resource Strain (CARDIA) Answe r Date Recorded How hard is it for you to pa y for the very basics like food, housing, medical care, and heating? Not hard at all 12/28/2024 PHQ-2 Answer Date Recorded PHQ-2 Total Score 0 12/28/2024 [facility] [place] [facility] Occupat ional Health - Occupational Stress [...] things needed for daily living? No 05/29/2023 [facility] IP [...] Sign Reading Time Taken Comments Blood Pressure 130/78 03/27/2025 8:43 AM EDT Pulse 70 03/27/2025 8:38 AM EDT Temperature 36.1 C (97 F) 03/27/2025 8:38 AM EDT Respiratory Rate - - Oxygen Saturation - - Inhaled Oxygen Concentration - - Weight 69.8 kg (153 lb 12.8 oz) 03/27/2025 8:38 AM EDT Height 162.6 cm (5' 4 ) 03/27/2025 8:38 AM EDT Body Mass Index 26.4 03/27/2025 8:38 AM EDT documented in this encounter Functional [...] Entry Date Author No 06/11/2023 2:58 PM EDRedd Prather RN documented in this encounter Patient Instructions * Attachments The following attachments cannot be sent through Care Everywhere. * Peripheral artery disease and claudication (Ethiopian) documented in this encounter Progress Notes * Vishnu Penn MD - 03/27/2025 8:00 AM EDT Images from the original note were not included. Subjective: Ms. Ding is here for a scheduled routine follow-up visit History of Present Illness The patient is a 59 y.o. female: Peripheral Arterial Disease Complains of BLE R>L pain with ambulation at 500 feet. Pain is primarily located in the feet. Complains of open wounds. On left heel. Reports history of previous vascular procedures on legs. Takes Aspirin, Plavix, and Eliquis daily. Previous smoker 2021. Vascular Surgery History: 12/29/2024: angiogram; left SFA atherectomy, left PT angioplasty, left peroneal artery angioplasty (Dr. Vishnu Penn) 12/28/2024: angiogram; thrombolytic therapy cont. (Dr. Vishnu Penn) 12/27/2024: Angiogram; thrombolytic therapy initiated (Dr. Vishnu Penn) 06/02/2023: Angiogram; left PT and peroneal artery angioplasty w/balloon, left popliteal artery angioplasty (Vishnu Penn MD) 11/04/2022: Right SHAMIR angioplasty w/balloon, L. common iliac stent w/balloon (Vishnu Penn MD) 03/13/2022: Balloon angioplasty left SFA; Balloon angioplasty left posterior tibial artery; Balloonangioplasty left peritoneal artery (Kashif Wong MD) HPI Patients past medical, family and social histories were reviewed and updated. There are no changes except as noted. Past Medical History: Diagnosis Date Anesthesia complication only with phenergan, alarming how long it takes her to wake up Asthma Bradycardia CAD (coronary artery disease) Cardiac pacemaker 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 Cleaning Chronic systolic heart failure (HCC) COPD (chronic obstructive pulmonary disease) ([facility]) Depression with anxiety Emphysema, unspecified ([facility]) Essential hypertension Headache Heartburn History of cardiac cath 03/23/2017 Stent placed in Right leg 03/23/2017 HLD (hyperlipidemia) Hypertension HI (myocardial infarction) ([facility]) 06/2016 Pacemaker Post-operative nausea and vomiting Sinus node dysfunction ([facility]) 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 Cleaning STEMI (ST elevation myocardial infarction) ([facility]) STEMI with 3 NORI to RCA Systolic heart failure ([facility]) 02/2017 ECHO, EF 25% Patient Active Problem List Diagnosis Date Noted Small vessel disease 03/27/2025 Claudication of right lower extremity 02/26/2025 Pressure ulcer of left heel, stage 4 ([facility]) 01/09/2025 Critical limb ischemia of both lower extremities (HCC) 12/28/2024 DVT, lower extremity, distal, acute, left ([facility]) 12/27/2024 Former smoker-quit 202112/08/2024 Abnormal ankle brachial [...] situ 12/07/2023 Insomnia 12/07/2023 Kidney stone 12/07/2023 intermodal customer service current use of anticoagulant therapy 12/07/2023 Neuropathy 12/07/2023 Non-pressure chronic ulcer of skin of other sites with unspecified severity ([facility]) 12/07/2023 Palpitations 12/07/2023 Atrial fibrillation with rapid ventricular response ([facility]) 12/07/2023 Seasonal allergic rhinitis 12/07/2023 Sinusitis 12/07/2023 Stented coronary artery 12/07/2023 Typical angina 12/07/2023 Ventricular fibrillation ([facility]) 12/07/2023 Ventricular fibrillation seen on quality assurance monitor body ([facility]) 12/07/2023 Ventricular tachyarrhythmia ([facility]) 12/07/2023 Failed flap 06/28/2023 Skin flap necrosis ([facility]) 06/28/2023 Atherosclerosis of artery of extremity with ulceration ([facility]) 06/02/2023 PAD (peripheral artery disease) 06/01/2023 S/P foot surgery 06/01/2023 Cellulitis of left lower extremity 05/28/2023 Open wound of left foot 04/26/2023 Hammertoe of left foot 06/08/2022 Pain in left foot 06/08/2022 Gangrene of left foot ([facility]) 06/08/2022 Vaping nicotine dependence, non-tobacco product 03/05/2022 COPD (chronic obstructive pulmonary disease) ([facility]) HLD (hyperlipidemia) Hypertension Emphysema, unspecified CAD (coronary artery disease) Cardiac pacemaker History of cardiac cath Depression with anxiety Essential hypertension Chronic systolic heart failure ([facility]) Sinus node dysfunction ([facility]) Bradycardia Past Surgical History: Procedure Laterality Date CARDIAC CATHETERIZATION Right 03/23/2017 stent placed in right leg CARDIAC PACEMAKER PLACEMENT 11/05/2016 SJM Dual PPM COLONOSCOPY CORONARY ANGIOPLASTY WITH STENT PLACEMENT 06/2016 x3 DEBRIDEMENT Left 05/19/2023 .; Surgeon: Jabari Hill DPM; Location: [facility]; Service: Orthopedics FEMUR FRACTURE SURGERY Right right femur fx repair FOOT SURGERY FOOT SURGERY Left 12/23/2022 Left foot heel and second and third toe debridement with application of skin graft substitute. ; Surgeon: Jabari Hill DPM; Location: [facility]; Service: Orthopedics FOOT SURGERY Left 02/10/2023 Surgeon: Jabari Hill DPM; Location: [facility]; Service: Orthopedics FOOT SURGERY Left 06/06/2023 left FOOT TRANSMETATARSAL amputation; Surgeon: Jabari Hill DPM; Location: [facility]; Service: Podiatry HAMMER TOE SURGERY Left 06/15/2022 Left foot Correction of hammer toe deformity with arthroplasty second and third toe. Left foot Application of skin graft substitute.; Surgeon: Jabari Hill DPM; Location: [facility]; Service: Podiatry HIP SURGERY IR [...] IR REVAS FEM POP ART UNILAT W BUSINESS QUALITY ASSURANCE ANALYST 03/13/2022 IR REVAS FEM POP ART UNILAT W BUSINESS QUALITY ASSURANCE ANALYST 03/13/2022 Kashif Wong MD [facility] IR REVAS FEM POP ART UNILAT W BUSINESS QUALITY ASSURANCE ANALYST 06/02/2023 IR REVAS FEM POP ART UNILAT W BUSINESS QUALITY ASSURANCE ANALYST 06/02/2023 Vishnu Penn MD [facility] IR REVAS FEM POP ART UNILAT W BUSINESS QUALITY ASSURANCE ANALYST 12/28/2024 IR REVAS FEM POP ART UNILAT W BUSINESS QUALITY ASSURANCE ANALYST 12/28/2024 Vishnu Penn MD [facility] IR [...] 05/19/2023 .; Surgeon: Jabari Hill DPM; Location: [facility]; Service: Orthopedics SKIN GRAFT Left 06/15/2022 Surgeon: Jabari Hill DPM; Location: [facility]; Service: Podiatry SKIN GRAFT Left 12/23/2022 . ; Surgeon: Jabari Hill DPM; Location: [facility]; Service: Orthopedics SKIN GRAFT 02/10/2023 Surgeon: Jabari Hill DPM; Location: [facility]; Service: Orthopedics TOE AMPUTATION Left 02/10/2023 Left foot second toe amputation, Left foot excisional debridement with application of skin graft substitute; Surgeon: Jabari Hill DPM; Location: [facility]; Service: Orthopedics TOE AMPUTATION Left 05/19/2023 Left foot, amputation of third toe. Left foot, wound debridment application. Left foot, skin graft substitute. Left foot wound debridment closure.; Surgeon: Jabari Hill DPM; Location: [facility]; Service: Orthopedics Family History Problem [...] DAILY fluticasone propionate (FLONASE) 50 mcg/actuation Nasl [place], Suspension 1 spay each nostril twice daily [...] HOURS PRN oxymetazoline (AFRIN) 0.05 % Nasl [place], Non-Aerosol 1 [place], Nasal, PRN pantoprazole (PROTONIX) 40 mg, DAILY Ranolazine 1,000 mg Oral Tablet Sustained Release 12 hr 1 Tablet, 2 TIMES DAILY Repatha SureClick 140 mg, EVERY 14 DAYS rOPINIRole (REQUIP) 1 mg, NIGHTLY VITAMIN B COMPLEX ORAL 1 Tablet, DAILY Allergies Allergen Reactions Atorvastatin Myalgia Ezetimibe Myalgia Rosuvastatin Myalgia Simvastatin Myalgia Wluxcnm-Laz-Veo Reductase Inhibitors Other (See Comments) Joint pain Codeine Itching nausea Hydrocodone Itching nausea Phenergan [Promethazine] Other (See Comments) Made legs restless And also very sleepy Review of Systems Constitutional: Negative for appetite change, chills, fatigue and fever. Respiratory: Negative for chest tightness and shortness of breath. Cardiovascular: Negative for chest pain and leg swelling. Musculoskeletal: Negative for back pain and gait problem. Skin: Negative for color change and wound. All other systems reviewed and are negative. Objective: Vitals: 03/27/25 0838 03/27/25 0843 BP: 138/90 130/78 BP Location: Right arm Left arm Patient Position: Sitting Sitting Pulse: 70 Temp: 97 ??F (36.1 ??C) TempSrc: Forehead Weight: 153 lb 12.8 [...] LOWER EXTREMITY ARTERIAL DUPLEX COMPLETE Result Date: 02/20/2025 Conclusions * Right: * RODOLFO: 0.63 (DPA, distal BUSINESS QUALITY ASSURANCE ANALYST occluded) / TBI: 0, absent waveform. There is an occlusion of the distal posterior tibial artery. Dampened, biphasic flow of the proximal and mid posterior tibial artery. Mild to moderate plaque noted in the arteries of the right lower extremity. * Left: * RODOLFO: 1.29 (BUSINESS QUALITY ASSURANCE ANALYST) / TBI: 0, metatarsal amputation. 20-49 % stenosis of the profunda, 145 cm/s.There is an occlusion of the proximal anterior tibial artery and the mid peroneal artery. Mild to moderate plaque noted in the arteries of the left lower extremity. [facility] LOWER EXTREMITY ARTERIAL DUPLEX COMPLETE [...] proximal SFA, 138 cm/s. Patency of the BUDDER, profunda, SFA, popliteal artery, BUSINESS QUALITY ASSURANCE ANALYST, SHAMIR, and the DPA. The BUSINESS QUALITY ASSURANCE ANALYST, SHAMIR, and the DPA are all dampenedwith biphasic Doppler waveforms. Mild to moderate plaque noted throughout the arteries of the rightlower extremity. * Left: * 20-49 % stenosis of the profunda, 182 cm/s. Patency of the BUDDER, profunda, SFA, popliteal artery, BUSINESS QUALITY ASSURANCE ANALYST, SHAMIR, and the DPA. The BUSINESS QUALITY ASSURANCE ANALYST, SHAMIR, and the DPA are all dampened with biphasic Doppler waveforms. Mild to moderate plaque noted throughout the arteries of the left lower extremity. Assessment and Plan: Ashley was seen today for peripheral arterial disease (pad). Diagnoses and all orders for this visit: PAD (peripheral artery disease) - [facility] LOWER EXTREMITY ARTERIAL DUPLEX COMPLETE; Future Former smoker-quit 2021 Small vessel disease - [facility] LOWER EXTREMITY ARTERIAL DUPLEX COMPLETE; Future Ms. Ding presents today in follow up for peripheral artery disease. I reviewed the lower arterial duplex dated 02/20/25 (RABI 0.63 & LABI 1.29). I do not recommend intervention at this time. She should continue her current wound care. I encouraged her to walk to the point of pain, stop, rest, then start again. All questions were answered. She should continue herASA, Plavix and Eliquis. She will return in 6 months with repeat lower arterial duplex. She was instructed to call the office if she develops worsening pain with walking or non-healing wounds on her feet or legs prior her next appointment. [facility] Note written by KIRILL Cotto acting as scribe for Vishnu Penn MD Cardiology: Dr. Cristi Cleaning Additional Assessment and Plan: History of Present Illness The patient is a 59-year-old female status post left lower extremity thrombolysis angioplasty, herefor follow-up with a left heel ulcer. The patient was last seen by ISMAEL soto on 02/07/2025. She reports that her leg is generally in good condition, with the exception of a small area that remains unhealed. She finds it challenging to reapply the bandage. Her care is being managed by Dr. Pelletier, who she visited yesterday. He assessed her condition as satisfactory, but noted the small unhealed area. She plans to resume taking Moses, which she believes aids in healing. The healing process has progressed to the point where she has been cleared to use the swimming pool. She is currently on aspirin and Plavix. Her branch director, Dr. Cleaning, is considering discontinuing her aspirin regimen, but she has expressed her reluctance to do so. She does not smoke. During her visit yesterday, her pulse was detected without the need for a Doppler, which is usually required. She has been maintaining an active lifestyle. SOCIAL HISTORY She does not smoke. MEDICATIONS aspirin, Plavix Physical Exam Results Imaging Ultrasound study shows better flow in the left leg than the right leg. Assessment & Plan 1. Left heel ulcer. The left heel ulcer is showing signs of improvement, with better blood flow in the left leg compared to the right. She is currently on aspirin and Plavix. She is advised to continue her current medication regimen, including aspirin and Plavix, as part of triple therapy to prevent clotting. She should also maintain an active lifestyle and continue walking to promote collateral circulation. If she experiences any bleeding issues, she should report them immediately. If the ulcer does not heal, sheshould inform the clinic promptly. 2. Small artery disease. She has small artery disease with blockage below the knee. The current treatment involves keeping the arteries open with balloons. She should continue her current medication regimen, including aspirin and Plavix, to prevent clotting. A letter will be sent to her branch director, Dr. Cleaning, to emphasize the importance of continuing aspirin therapy. Follow-up The patient will follow up in 6 months with an ultrasound. With CITLALLI The provider educated the patient (or legal self pay representative) on the use of the ambient listening artificial intelligence tool, [employer]. They were informed that this AI tool processes the conversation to generate a clinical note with the expected benefit of improved accuracy while achieving an improved encounter experience for the patient and provider.?The provider explained that the medical information captured by the AI tool including, but not limited to, diagnoses and treatment plan would be protected in accordance with applicable privacy laws and that all diagnoses and treatment decisions would be made by the provider. The provider explained that the note generated will be reviewed bythe provider for accuracy to minimize potential errors.? The patient was given an opportunity to ask questions and opt out of proceeding with the use of the AI tool. After being informed of such information, the patient (or legal self pay representative), and each individual in attendance with the patient, verbally consented to the use of the AI tool. I have reviewed this note and it accurately reflects my work and decisions made during this visit. Signed: Vishnu Penn MD This note was completed using voice recognition technology. Despite the lyric writer's best efforts to proof read, it may still contain unintended errors. Please call with questions. documented in this encounter Miscellaneous Notes * Patient Instructions - Dotty Ashby ABR-OE - 03/27/2025 8:00 AM EDT You may be contacted by mail, e-mail or by text message to participate in a patient satisfaction survey regarding your office visit today. We value your opinion and depend on your feedback to make improvements and provide you with the best possible experience while receiving high quality medical treatment. Your time in completing this survey is greatly appreciated. As with most of these types of surveys, only the top box score is regarded as positive feedback. If you find you cannot score us in the top box we would rather you call the office at [phone] and speak with our management team so we may know how to improve. documented in this encounter Plan of Treatment Upcoming Encounters Date Type Department Care Team (Late st Contact Info) Description 05/07/2025 1:45 PM EDT Appointment [facility] [place] [address] [facility] [place] [address] Jabari Corado Jr., MD [address] [place] [address] [address] [place] [address] 05/10/2025 10:20 AM EDT Office Visit [facility] [address] [place] [address] Drive [address] [place] [address] Nette Jalloh APRN [address] [place] [address] [address] [place] [address] 11/12/2025 1:30 PM EST Appointment [facility] [address] [facility] [address] [place] [address] January, Nette Rand, ACADEMIC SERVICES PROFESSIONAL [address] [facility] [address] [place], [place] [id number] 11/12/2025 2:40 PM EST Office Visit [facility] [address] [facility] [address] [place] [address] JanuaryNette, ACADEMIC SERVICES PROFESSIONAL [address] [facility] [address] [place] [address] Scheduled Orders Name Type Priority Associated Diagnoses Order Schedule [facility] LOWER EXTREMITY ARTERIAL DUPLEX COMPLETE Imaging Cardiology Routine PAD (peripheral artery disease) Small vessel disease 1 Occurrences starting 03/27/2025 until 03/27/2027 documented as of this encounter Goals Goal [...] Primary Unspecified disorders of arteries and arterioles Former smoker-quit 2021 Personal history of tobacco use, presenting hazards to health Small vessel disease Peripheral vascular disease, unspecified documented in this encounter Care Teams Director Of Photography Relationship Specialty Start Date End Date William Hunter MD [address] [place] [address] [place] [id number] PCP - General Internal Medicine-Adolescent Medicine 05/28/23 González Gotti MD [address] [place] [address] [place] [address] Consulting Physician Internal Medicine - Clinical Cardiac Electrophysiology 04/05/17 Cristi Cleaning MD [address] [place] [address] [place] [address] Physician Internal Medicine-Cardiovascular Disease 04/05/17 documented as of this encounter
--- OUTSIDE RECORDS SUMMARY | 2025-04-16 14:30 | XMS_ITS | Encounter Summary ---
Author Organization [place] [address] Care Team Providers Care Nitroglycerin Supervisor Name Role Phone González Gotti MD Unavailable [phone] Cristi Cleaning MD Unavailable [phone] William Hunter MD Primary Care Provider [phone] Reason for Referral * (Routine) - Pending Review Specialty Diagnoses / Procedures Referred By Brian villavicencio Referred To Contact Diagnoses 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) Pressure ulcer of left heel, stage 4 (HCC) Procedures AMB [facility] PRIMARY DRESSING Cristi Pelletier DPM [address] [place] [phone] Phone: tel: fax: Referral ID Status Reason Start Date Expiration Date V isits Requested Visits Authorized [id number] Pending Review 04/17/2025 04/17/2026 1 1 * In Office Procedure (Routine) - Pending Review Specialty Diagnoses / Procedures Referred By Brian villavicencio Referred To Contact Diagnoses 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) Pressure ulcer of left heel, stage 4 (HCC) Procedures CA DEBRIDEMENT SUBCUTANEOUS TISSUE 1ST 20 SQ CM/< Cristi Pelletier DPM [address] [address] Phone: tel: fax: Referral ID Status Reason Start Date Expiration Date V isits Requested Visits Authorized [id number] Pending Review 04/16/2025 04/16/2026 1 1 Reason for Visit * Reason Comments Wound Check * Consultation (Routine) - Authorization Not Needed Specialty Diagnoses / Procedures Referred By Contac t Referred To Contact Wound Care Diagnoses Wound Care Procedures CA DEBRIDEMENT SUBCUTANEOUS TISSUE 1ST 20 SQ CM/< CA DEBRIDEMENT MUSCLE &/FASCIA 1ST 20 SQ CM/< CA DEBRIDEMENT BONE 1ST 20 SQ CM/< CA DEBRIDEMENT SUBCUTANEOUS TISSUE EA ADDL 20 SQ CM CA DEBRIDEMENT MUSCLE &/FASCIA EA ADDL 20 SQ CM CA DEBRIDEMENT BONE EACH ADDITIONAL 20 SQ CM CA DEBRIDEMENT OPEN WOUND FIRST 20 SQ CM/< CA DEBRIDEMENT OPN WND EA ADDL 20 SQ CM/PRT THEREOF [facility] W[facility] Care [facility] [place] [address] [place] [address] Phone: tel: fax: Referral ID Status Reason Start Date Expiration Date Visits Requested Visits Authorized [id number] Authorization Not Needed Specialty Services Required 5 01/08/2026 99 99 Encounter Details Date Type Department Care Team (Latest Contact Info) Description 04/16/2025 2:30 PM EDT - 04/16/2025 11:59 PM EDT Hospital Encounter [facility] W[facility] Care [facility] [place] [address] [place] [place] [address] Cristi Pelletier DPM [address] [address] 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) (Primary Dx); Pressure ulcer of left heel, stage 4 (HCC) Discharge Disposition: Home or Self Care Social History Tobacco Use Types Packs/Day Years Used Date Smoking Tobacco: Former Cigarettes 0.3 40 0 12/26/1981 - 12/26/2021 Passive Smoke Exposure: Past Smokeless Tobacco: Never Alcohol Use Standard Drinks/Week Comments Not Currently 0 (1 standard drink = 0.6 oz pur e alcohol) [facility] Utilities Answer Date Recorded In [...] Date Recorded PHQ-2 Total Score 0 12/28/2024 [facility] - Occupational Stress [...] things needed for daily living? No 05/29/2023 [facility] IP Transportation Answer D ate Recorded [...] Sign Reading Time Taken Comments Blood Pressure 118/81 04/16/2025 2:41 PM EDT Pulse 70 04/16/2025 2:41 PM EDT Temperature 36.7 C (98 F) 04/16/2025 2:41 PM EDT Respiratory Rate 16 04/16/2025 2:41 PM EDT Oxygen Saturation - - Inhaled [...] days. fluticasone propionate (FLONASE) 50 mcg/actuation Nasl [place], Suspension 1 spay each nostril twice daily [...] EDT 06/11/2023 oxymetazoline (AFRIN) 0.05 % Nasl [place], Non-Aerosol 1 [place] by Nasal route as needed for Congestion (30 min. prior to HBO2-PRN, difficulty clearing ears.). 06/28/2023 documented as of this encounter Discharge Disposition Disposition Code Departure Means Destination Home or Self Care documented in this encounter Progress Notes * Cristi Pelletier DPM - 04/16/2025 2:30 PM EDT Date of Visit:04/16/2025 Progress Note HPI Ashley Ding is a 59 y.o. year old female patient who presents today for wound evaluation and follow-up. Eval chronic ulcer of the left heel Stable Patient denies any fever, chills, nausea or vomiting Past Medical History: Diagnosis Date Anesthesia complication only with phenergan, alarming how long it takes her to wake up Asthma Bradycardia CAD (coronary artery disease) Cardiac pacemaker [facility] Dual PPM 11/05/2016 - Dr. Cleaning Chronic systolic heart failure ([facility]) COPD (chronic obstructive pulmonary disease) ([facility]) Depression with anxiety Emphysema, unspecified ([facility]) Essential hypertension Headache Heartburn History of cardiac cath 03/23/2017 Stent placed in Right leg 03/23/2017 HLD (hyperlipidemia) Hypertension [place] (myocardial infarction) ([facility]) 06/2016 Pacemaker Post-operative nausea and vomiting Sinus node dysfunction ([facility]) PJ Dual PPM 11/05/2016 - Dr. Cleaning STEMI (ST elevation myocardial infarction) ([facility]) STEMI with 3 NORI to RCA Systolic heart failure ([facility]) 02/2017 ECHO, EF 25% Past Surgical History: Procedure Laterality Date CARDIAC CATHETERIZATION Right 03/23/2017 stent placed in right leg CARDIAC PACEMAKER PLACEMENT 11/05/2016 SJ Dual PPM COLONOSCOPY CORONARY ANGIOPLASTY WITH STENT PLACEMENT 06/2016 x3 DEBRIDEMENT Left 05/19/2023 .; Surgeon: Jabari Hill DPM; Location: [facility] MAIN OR; Service: Orthopedics FEMUR FRACTURE SURGERY Right right femur fx repair FOOT SURGERY FOOT SURGERY Left 12/23/2022 Left foot heel and second and third toe debridement with application of skin graft substitute. ; Surgeon: Jabari Hill DPM; Location: [facility] MAIN OR; Service: Orthopedics FOOT SURGERY Left 02/10/2023 Surgeon: Jabari Hill DPM; Location: [facility] MAIN OR; Service: Orthopedics FOOT SURGERY Left 06/06/2023 left FOOT TRANSMETATARSAL amputation; Surgeon: Jabari Hill DPM; Location: [facility] MAIN OR; Service: Podiatry HAMMER TOE SURGERY Left 06/15/2022 Left foot Correction of hammer toe deformity with arthroplasty second and third toe. Left foot Application of skin graft substitute.; Surgeon: Jabari Hill DPM; Location: [facility] MAIN OR; Service: Podiatry HIP [...] IR REVAS FEM POP ART UNILAT W HAIR OR BEAUTY SALON MANAGER 03/13/2022 IR REVAS FEM POP ART UNILAT W HAIR OR BEAUTY SALON MANAGER 03/13/2022 Kashif Wong MD EDG IR IR REVAS FEM POP ART UNILAT W HAIR OR BEAUTY SALON MANAGER 06/02/2023 IR REVAS FEM POP ART UNILAT W HAIR OR BEAUTY SALON MANAGER 06/02/2023 Vishnu Penn MD EDG IR IR REVAS FEM POP ART UNILAT W HAIR OR BEAUTY SALON MANAGER 12/28/2024 IR REVAS FEM POP ART UNILAT W HAIR OR BEAUTY SALON MANAGER 12/28/2024 Vishnu Penn MD EDG IR IR [...] TRANSCATH ARTERIAL INFUSION THROMBOLYSIS INITIAL TREAT 12/27/2024 iVshnu Penn MD EDG IR IR ULTRASOUND GUIDED [...] 05/19/2023 .; Surgeon: Jabari Hill DPM; Location: [facility] MAIN OR; Service: Orthopedics SKIN GRAFT Left 06/15/2022 Surgeon: Jabari Hill DPM; Location: [facility] MAIN OR; Service: Podiatry SKIN GRAFT Left 12/23/2022 . ; Surgeon: Jabari Hill DPM; Location: [facility] MAIN OR; Service: Orthopedics SKIN GRAFT 02/10/2023 Surgeon: Jabari Hill DPM; Location: [facility] MAIN OR; Service: Orthopedics TOE AMPUTATION Left 02/10/2023 Left foot second toe amputation, Left foot excisional debridement with application of skin graft substitute; Surgeon: Jabari Hill DPM; Location: [facility] MAIN OR; Service: Orthopedics TOE AMPUTATION Left 05/19/2023 Left foot, amputation of third toe. Left foot, wound debridment application. Left foot, skin graft substitute. Left foot wound debridment closure.; Surgeon: Jabari Hill DPM; Location: [facility] MAIN OR; Service: Orthopedics Current [...] -- (Patient not taking: Reported on 03/27/2025) apixaban (ELIQUIS) 5 mg Oral Tablet Take [...] days. fluticasone propionate (FLONASE) 50 mcg/actuation Nasl [place], Suspension 1 spay each nostril twice daily [...] taking: Reported on 03/27/2025) 30 Tablet 0 oxymetazoline (AFRIN) 0.05 % Nasl [place], Non-Aerosol 1 [place] by Nasal route as needed for Congestion [...] Myalgia Ezetimibe Myalgia Rosuvastatin Myalgia Simvastatin Myalgia Iwnxdmb-Vpk-Oea Reductase Inhibitors Other (See Comments) Joint pain Codeine Itching nausea Hydrocodone Itching nausea Phenergan [Promethazine] Other (See Comments) Made legs restless And also very sleepy ROS See HPI for further details. Relevant review of systems otherwise negative. Physical Exam Vitals: 04/16/25 1441 BP: 118/81 Pulse: 70 Resp: 16 Temp: 98 ??F (36.7 ??C) Ulcer Progress and Procedure Please refer to the LDA for details of ulcer progress and procedure. Ulcer evaluated left heel to subcutaneous fat No gross evidence of infection No abscess or sinus formation No fluctuance No malodor No ascending cellulitis or lymphangitis No gross necrosis of wound edges or base Wound bed appears viable Diminished pulses Assessment and Plan Ashley was seen today for wound check. Diagnoses and all orders for this visit: 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) - CA DEBRIDEMENT SUBCUTANEOUS TISSUE 1ST 20 SQ CM/< - AMB [facility] PRIMARY DRESSING Pressure ulcer of left heel, stage 4 (HCC) - CA DEBRIDEMENT SUBCUTANEOUS TISSUE 1ST 20 SQ CM/< - AMB [facility] PRIMARY DRESSING Other orders - lidocaine (XYLOCAINE) 5 % [...] Patient Instructions - Balbina Tong RN - 04/16/2025 2:30 PM EDT HOME-CARE INSTRUCTIONS FOLLOWING YOUR [...] in the Wound Care Center in [address] Pelletier Left heel- collagen, adaptic overlay, 4x4, roll gauze, every other day. 03/26 [facility] [employer] [employer] has been contacted to obtain your wound [...] out to our rn coronary care unit, Hannakelvin TuckerOneil at [phone] for any discussion. WHO TO CALL FOR PROBLEMS: Please call the OP wound care center with any problems or issues you may have after your visit or though the week. Each patient is assigned a disability case manager who can assist with issues you may be having. Individual office numbers are listed below. Press 1 for immediate or schedule needs, press 2 for the nursing line. The nurse line is for non-emergent needs and will be answered within 24 hours duringbusiness days. If you have a more immediate concern, press option #1. Office numbers: [phone] [place] ClaudioAxuxqw-[phone] [place]- [phone] Our offices do not have an on-call provider. If you have emergent needs after hours please contact your primary care provider. You may also utilize the [facility] Nurse NOW Helpline: [phone]-NOW for after-hours needs to get in contact with a nurse for assistance. documented in this encounter Plan of Treatment Upcoming Encounters Date Type Department Care Team (Late st Contact Info) Description 05/07/2025 1:45 PM EDT Appointment [facility] Wound Care Center [address] [place] [address] Jabari Corado Jr., MD [address] [place] [address] [address] [place] [address] 05/10/2025 10:20 AM EDT Office Visit [facility] [address] [place] [address] Drive [address] [place] [address] Nette Jalloh APRN [address] [place] [address] [address] [place] [address] 11/12/2025 1:30 PM EST Appointment [facility] V[facility] [address] [place] [phone] JanuaryNette APRN [address] [place] [address] 11/12/2025 2:40 PM EST Office Visit [facility] [address] [facility] [address] [place] [address] JanuaryNette APRN [address] [place] [address] [address] [place], [place] [id number] Scheduled Orders Name Type Priority Associated Diagnoses Orde r Schedule CA DEBRIDEMENT SUBCUTANEOUS TISSUE 1ST 20 SQ CM/< CA Charge Routine 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) Pressure ulcer of left heel, stage 4 (HCC) Ordered: 04/16/2025 documented as of this encounter Goals Goal [...] artery of extremity with ulceration (HCC)- Primary Pressure ulcer of left heel, stage 4 (HCC) documented in this encounter Administered Medications Inactive Administered Medications - up to 1 most recent administrations Medication Order MAR Action Action Date Dose Rate Site lidocaine (XYLOCAINE) 5 % ointment Topical, ONCE, 1 dose, On Wed04/16/25 at 1500, Application site: left foot Given 04/16/2025 2:54 PM EDT documented in this encounter Orders Medications Ordered That Daniel ht Not Have Been Administered Count Last Ordered Date First Ordered Date lidocaine (XYLOCAINE) 5 % ointment 1 2024 Nursing Count Last Ordered Date First Orde red Date AMB [facility] PRIMARY DRESSING 1 04/17/2025 documented in this encounter Care Teams Nitroglycerin Supervisor Relationship Specialty Start Date End Date William Hunter MD [address] [place] [address] [address] [place] [address] PCP - General Internal Medicine-Adolescent Medicine 05/28/23 González Gotti MD [address] [place] [address] [place] [address] Consulting Physician Internal Medicine - Clinical Cardiac Electrophysiology 04/05/17 Cristi Cleaning MD [address] [place] [address] [place], [place] [id number] Physician Internal Medicine-Cardiovascular Disease 04/05/17 documented as of this encounter
--- OUTSIDE RECORDS SUMMARY | 2025-04-23 14:30 | XMS_ITS | Encounter Summary ---
Author Organization [place] [address] Care Team Providers Care Dust Collector Operator Name Role Phone González Gotti MD Unavailable [phone] Cristi Cleaning MD Unavailable [phone] William Hunter MD Primary Care Provider [phone] Reason for Referral * In Office Procedure (Routine) - Pending Review Specialty Diagnoses / Procedures Referred By Contac t Referred To Contact Diagnoses Pressure ulcer of left heel, stage 4 (HCC) Procedures ND DEBRIDEMENT SUBCUTANEOUS TISSUE 1ST 20 SQ CM/< Jabari Corado Jr., MD [address] [place] [address] [address] [place] [address] Phone: tel: fax: Referral ID Status Reason Start Date Expiration Date V isits Requested Visits Authorized [id number] Pending Review 04/23/2025 04/23/2026 1 1 * (Routine) - Pending Review Specialty Diagnoses / Procedures Referred By Contac t Referred To Contact Diagnoses Pressure ulcer of left heel, stage 4 (HCC) 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) Procedures [facility] Jabari Corado Jr., MD [address] [place] [address] [address] [place] [address] Phone: tel: fax: Referral ID Status Reason Start Date Expiration Date V isits Requested Visits Authorized [id number] Pending Review 04/23/2025 04/23/2026 1 1 Reason for Visit * Reason Comments Wound Check * Consultation (Routine) - Authorization Not Needed Specialty Diagnoses / Procedures Referred By Contac t Referred To Contact Wound Care Diagnoses Wound Care Procedures ND DEBRIDEMENT SUBCUTANEOUS TISSUE 1ST 20 SQ CM/< ND DEBRIDEMENT MUSCLE &/FASCIA 1ST 20 SQ CM/< ND DEBRIDEMENT BONE 1ST 20 SQ CM/< ND DEBRIDEMENT SUBCUTANEOUS TISSUE EA ADDL 20 SQ CM ND DEBRIDEMENT MUSCLE &/FASCIA EA ADDL 20 SQ CM ND DEBRIDEMENT BONE EACH ADDITIONAL 20 SQ CM ND DEBRIDEMENT OPEN WOUND FIRST 20 SQ CM/< ND DEBRIDEMENT OPN WND EA ADDL 20 SQ CM/PRT THEREOF [facility] [place] [address] [place] [address] Phone: tel: fax: Referral ID Status Reason Start Date Expiration Date Visits Requested Visits Authorized [id number] Authorization Not Needed Specialty Services Required 5 01/08/2026 99 99 Encounter Details Date Type Department Care Team (Latest Contact Info) Description 04/23/2025 2:30 PM EDT - 04/23/2025 11:59 PM EDT Hospital Encounter [facility] [address] [place] [address] Jabari Corado Jr., MD [address] [place] [address] [address] [place] [address] Pressure ulcer of left heel, stage 4 [...] drink = 0.6 oz pur e alcohol) [facility] Utilities Answer Date Recorded In the past 12 months has e [employer], gas, oil, or water company threatened to shut off services in your home? No 12/28/2024 Overall Financial Resource Strain (CARDIA) Answe r Date Recorded How hard is it for you to pa y for the very basics like food, housing, medical care, and heating? Not hard at all 12/28/2024 PHQ-2 Answer Date Recorded PHQ-2 Total Score 0 12/28/2024 [facility] - Occupational Stress Questionnaire Answer Date Recorded [...] things needed for daily living? No 05/29/2023 [facility] IP Transportation Answer [...] days. fluticasone propionate (FLONASE) 50 mcg/actuation Nasl [place], Suspension 1 spay each nostril twice daily [...] EDT 06/11/2023 oxymetazoline (AFRIN) 0.05 % Nasl [place], Non-Aerosol 1 [place] by Nasal route as needed for Congestion [...] Cleaning Chronic systolic heart failure ([facility]) COPD (chronic obstructive pulmonary disease) ([facility]) Depression with anxiety Emphysema, unspecified ([facility]) Essential hypertension Headache Heartburn History of cardiac cath 03/23/2017 Stent placed in Right leg 03/23/2017 HLD (hyperlipidemia) Hypertension [place] (myocardial infarction) ([facility]) 06/2016 Pacemaker Post-operative nausea and vomiting Sinus node dysfunction ([facility]) 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 Cleaning STEMI (ST elevation myocardial infarction) ([facility]) STEMI with 3 NORI to RCA Systolic heart failure ([facility]) 02/2017 ECHO, EF 25% Past Surgical History: Procedure Laterality Date CARDIAC CATHETERIZATION Right 03/23/2017 stent placed in right leg CARDIAC PACEMAKER PLACEMENT 11/05/2016 SJM Dual PPM COLONOSCOPY CORONARY ANGIOPLASTY WITH STENT PLACEMENT 06/2016 x3 DEBRIDEMENT Left 05/19/2023 .; Surgeon: Jabari Hill DPM; Location: [facility] MAIN OR; Service: Orthopedics FEMUR FRACTURE SURGERY Right right femur fx repair FOOT SURGERY FOOT SURGERY Left 12/23/2022 Left foot heel and second and third toe debridement with application of skin graft substitute. ; Surgeon: Jabair Hill DPM; Location: [facility] OR; Service: Orthopedics FOOT SURGERY Left 02/10/2023 Surgeon: Jabari Hill DPM; Location: [facility] MA[facility] OR; Service: Orthopedics FOOT SURGERY Left 06/06/2023 left FOOT TRANSMETATARSAL amputation; Surgeon: Jabari Hill DPM; Location: [facility] MAIN OR; Service: Podiatry HAMMER TOE SURGERY Left 06/15/2022 Left foot Correction of hammer toe deformity with arthroplasty second and third toe. Left foot Application of skin graft substitute.; Surgeon: Jabari Hill DPM; Location: [facility] MA[facility] OR; Service: Podiatry HIP SURGERY IR [...] LEFT 12/02/2022 IR ANGIOGRAM EXTREMITY LEFT 12/02/2022 Vsihnu Penn MD [facility] IR IR ANGIOGRAM FEMORAL [...] IR REVAS FEM POP ART UNILAT W PIE BAKER 03/13/2022 IR REVAS FEM POP ART UNILAT W PIE BAKER 03/13/2022 Kashif Wong MD [facility] IR IR REVAS FEM POP ART UNILAT W PIE BAKER 06/02/2023 IR REVAS FEM POP ART UNILAT W PIE BAKER 06/02/2023 Vishnu Penn MD [facility] IR IR REVAS FEM POP ART UNILAT W PIE BAKER 12/28/2024 IR REVAS FEM POP ART UNILAT W PIE BAKER 12/28/2024 Vishnu Penn MD [facility] IR IR [...] 05/19/2023 .; Surgeon: Jabari Hill DPM; Location: [facility] MA[facility] OR; Service: Orthopedics SKIN GRAFT Left 06/15/2022 Surgeon: Jabari Hill DPM; Location: [facility] OR; Service: Podiatry SKIN GRAFT Left 12/23/2022 . ; Surgeon: Jabari Hill DPM; Location: [facility] OR; Service: Orthopedics SKIN GRAFT 02/10/2023 Surgeon: Jabari Hill DPM; Location: [facility] OR; Service: Orthopedics TOE AMPUTATION Left 02/10/2023 Left foot second toe amputation, Left foot excisional debridement with application of skin graft substitute; Surgeon: Jabari Hill DPM; Location: [facility] OR; Service: Orthopedics TOE AMPUTATION Left 05/19/2023 Left foot, amputation of third toe. Left foot, wound debridment application. Left foot, skin graft substitute. Left foot wound debridment closure.; Surgeon: Jabari Hill DPM; Location: [facility] OR; Service: Orthopedics Current Outpatient Medications [...] days. fluticasone propionate (FLONASE) 50 mcg/actuation Nasl [place], Suspension 1 spay each nostril twice daily [...] Chest pain. oxymetazoline (AFRIN) 0.05 % Nasl [place], Non-Aerosol 1 [place] by Nasal route as needed for Congestion [...] Myalgia Ezetimibe Myalgia Rosuvastatin Myalgia Simvastatin Myalgia Rflpdfc-Bfk-Hlz Reductase Inhibitors Other (See Comments) Joint pain [...] left heel, stage 4 (HCC) - [facility] Atherosclerosis of artery of extremity [...] roll gauze, every other day. 03/26 [facility] has been contacted to obtain your wound [...] free to reach out to our community outreach worker, Hanna Riggs at [phone] for any discussion. WHO TO CALL FOR PROBLEMS: Please call the OP wound care center with any problems or issues you may have after your visit or though the week. Each patient is assigned a catalytic case operator who can assist with issues you may be having. Individual office numbers are listed below. Press 1 for immediate or schedule needs, press 2 for the nursing line. The nurse line is for non-emergent needs and will be answered within 24 hours duringbusiness days. If you have a more immediate concern, press option #1. Office numbers: [phone] [place]t. ClaudioAnscfz-[phone] Mina- [phone] Our offices do not have an on-call provider. If you have emergent needs after hours please contact your primary care provider. You may also utilize the [facility] Nurse NOW Helpline: 4-289-1FPR-NOW for after-hours needs to get in contact with a nurse for assistance. 03/26 [facility] has been contacted to obtain your wound [...] free to reach out to our community outreach worker, Hanna Riggs at [phone] for any discussion. WHO TO CALL FOR PROBLEMS: Please call the OP wound care center with any problems or issues you may have after your visit or though the week. Each patient is assigned a catalytic case operator who can assist with issues you may be having. Individual office numbers are listed below. Press 1 for immediate or schedule needs, press 2 for the nursing line. The nurse line is for non-emergent needs and will be answered within 24 hours duringbusiness days. If you have a more immediate concern, press option #1. Office numbers: [phone] Ft. ClaudioLrgejx-[phone] [place]- [phone] Our offices do not have an on-call provider. If you have emergent needs after hours please contact your primary care provider. You may also utilize the [facility] Nurse NOW Helpline: 0-620-1SAQ-NOW for after-hours needs to get in contact [...] Info) Description 05/07/2025 1:45 PM EDT Appointment [facility] [place] [address] [place] [address] Jabari Corado Jr., MD [address] [place] [address] [address] [place] [address] [id number] 05/10/2025 10:20 AM EDT Office Visit [facility] [address] [place] [address] [place] [phone] JanuaryNette APRN [address] [place] [address] [id number] 11/12/2025 1:30 PM EST Appointment [facility] [address] [place] [address] [place] [phone] Nette Jalloh [address] [id number] 11/12/2025 2:40 PM EST Office Visit [facility] [address] [place] [address] [place] [phone] Net[address]oh [address] [place] [address] [place] [address] Scheduled Orders Name Type Priority Associated Diagnoses Orde r Schedule ND DEBRIDEMENT SUBCUTANEOUS TISSUE 1ST 20 SQ CM/< ND Charge Routine Pressure ulcer of left heel, [...] 04/23/2025 documented in this encounter Care Teams Dust Collector Operator Relationship Specialty Start Date End Date William Hunter MD [address] [place] [phone] PCP - General Internal Medicine-Adolescent Medicine 05/28/23 González Gotti MD [address] [place] [address] [place] [address] Consulting Physician Internal Medicine - Clinical Cardiac Electrophysiology 04/05/17 Cristi Cleaning MD [address] [place] [address] [place] [address] Physician Internal Medicine-Cardiovascular Disease 04/05/17 documented as of this encounter
--- NOTE | 2025-05-02 11:00 | CA_ITS ---
APPROVED REPORT EXAM: Comprehensive 2D, Doppler, and color-flow Echocardiogram Tinsmith Apprentice: Shira Griffiths RVT Ht: 5 ft 4 in Wt: 152lbs BSA: 1.74 BP: 134/83 mmHg Indications: LV FUNCTION-CARDIOMYOPATHY,HEART FAILURE 2D Dimensions IVSd 2.01 cm F: 0.6-1.0 LVEF (Visual) 33.50 % PWd 0.80 cm F: 0.6 - 1.0 LA Volume 32.50 mL LVDd 5.01 cm F: 3.9 - 5.3 LA Volume Index 18.68 mL/m2 (M/F) 16-34 LVDs 4.21 cm F: 2.2 - 3.5 M-Mode Dimensions RVDd 2.33 cm (0.9-2.6) LA Diam 2.97 cm (1.9-4.0) LVDd 6.22 cm (3.5-5.7) LVDs 5.38 cm (3.5-5.7) IVSd 1.12 cm (0.6-1.1) PWd 0.52 cm (0.6-1.1) EF (Teich) 28.30% FS 13.50% EDV (Teich) 195.40 mL TAPSE 1.70 (<1.7) ESV (Teich) 140.10 mL LV Diastology E Decel Time 170 (160-240 msec) E/A Ratio 0.3 Aortic Valve HANANE Index 1.26 cm2/m2 AoV Peak Issac. 102.0 (50-130 cm/s) AO Peak GR. 4.10 mmHg AO Mean GR. 2.30 (<5 mmHg) AO VTI 18.3 (18-25 cm) HANANE (VTI) 2.25 (2.5-4.5 cm2) Mitral Valve MV E Max Issac. 23.0 (40-130 cm/s) MV A Velocity 75.0 (40-130 cm/s) E/A Ratio 0.31 MV PHT 50.0 ms Pulmonary Valve PV Peak Velocity 71.0 (50-150 cm/s) Left Ventricle The left ventricle is normal size. Left ventricular systolic function is mildly to moderately reduced. There is increased left ventricular wall thickness. IVSd 1.4 cm. No evidence of LVOT obstruction at rest. The septum is asynchronous. There is severe hypokinesis of the inferior and inferoseptal LV magana. The left ventricular diastolic function is normal. LVEF is 40% Right Ventricle The right ventricle is normal size. The right ventricular systolic function is normal. Atria The left atrium size is normal. The right atrium size is normal. There is no color Doppler evidence of interatrial shunt. Aortic Valve The aortic valve is mildly thickened. There is no hemodynamically significant aortic valvular stenosis. No aortic regurgitation is present. Mitral Valve The mitral valve is normal in structure. No evidence of mitral valve stenosis. Trace mitral regurgitation is present. Tricuspid Valve The tricuspid valve leaflets are thin and pliable. Trace tricuspid regurgitation. There is insufficient TR jet to estimate RVSP. Pulmonic Valve The pulmonary valve is grossly normal in structure. Trace pulmonic valve regurgitation is present. Great Vessels The aortic root is normal in size. IVC is normal in size and collapses >50% with inspiration. Pericardium There is no pericardial effusion. Other Information Study Quality: Fair Conclusion Mild to moderate reduction in LV systolic function (LVEF 40%). Increased left ventricular wall thickness. IVSd 1.4 cm. No evidence of LVOT obstruction at rest. Severe hypokinesis of the inferior and inferoseptal LV magana. No significant valvular stenosis or regurgitation. Electronically signed by : Cecilia Finnegan MD 05/02/2025 13:18:20
--- OUTSIDE RECORDS SUMMARY | 2025-05-02 11:05 | XMS_ITS | Clinical Summary ---
Author Organization [facility] Address [address] [place] [address] Phone Care Team Providers Care Eight Section Blower Name Role Phone González Gotti MD Unavailable [phone] Cristi Cleaning MD Unavailable [phone] William Hunter MD Primary Care Provider [phone] Allergies Active Allergy Reactions Criticality Noted Date Comments Atorvastatin Myalgia High 07/01/2023 Codeine Itching Low nausea Ezetimibe Myalgia High 07/01/2023 Hydrocodone Itching Low nausea Promethazine Other (See Comments) Low 06/12/2022 Made legs restless And also very sleepy Rosuvastatin Myalgia High 07/01/2023 Simvastatin Myalgia High 07/01/2023 Mrccejx-Xmu-Bgr Reductase Inhibitors Other (See Comments) 01/02/2025 Joint [...] (never picked up), Informant: Self/Patient, Reported on 03/27/2025 fluticasone propionate (FLONASE) 50 mcg/actuation Nasl [place], Suspension 1 spay each nostril twice daily 1 Each 3 3 Active oxymetazoline (AFRIN) 0.05 % Nasl [place], Non-Aerosol 1 [place] by Nasal route as needed for Congestion (30 min. prior to HBO2-PRN, difficulty clearing ears.). 3 Active hydrOXYzine (ATARAX) 25 mg Oral Tablet 1 [...] t be different from the original. 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 0 12/07/2023 Neuropathy 12/07/2023 Non-pressure chronic ulcer o f skin of other sites with unspecified severity 12/07/2023 Palpitations 12/07/2023 Atrial fibrillation with rapid ventricular respo nse 12/07/2023 Seasonal allergic rhinitis 12/07/2023 Sinusitis 12/07/2023 Stented coronary artery 12/07/2023 Typical angina 12/07/2023 Ventricular fibrillation 12/07/2023 Ventricular fibrillation seen on monitor technician 12/07/2023 Ventricular tachyarrhythmia 12/07/2023 Failed flap 06/28/2023 Skin flap necrosis 06/28/2023 Atherosclerosis of artery of extremity with ulce ration 06/02/2023 PAD (peripheral artery disease) 06/01/2023 S/P foot surgery 06/01/2023 Cellulitis of left lower extremity 05/28/2023 Open wound of left foot 04/26/2023 Overview (04/26/2023): Added automatically from request for surgery [id number] Hammertoe of left foot 06/08/2022 Overview (06/08/2022): Added automatically from request for surgery [id number] Pain in left foot 06/08/2022 Overview (06/08/2022): Added automatically from request for surgery [id number] Gangrene of left foot 06/08/2022 Overview (06/08/2022): Added automatically from request for surgery [id number] Vaping nicotine dependence, non-tobacco product 03/05/2022 COPD (chronic obstructive pulmonary disease) HLD (hyperlipidemia) Hypertension Emphysema, unspecified CAD (coronary artery disease) Cardiac pacemaker Overview (04/05/2017): SJM Dual PPM 11/05/2016 History of cardiac cath Overview (04/05/2017): Stent placed in Right leg 03/23/2017 Depression with anxiety Essential hypertension Chronic systolic heart failure Sinus node dysfunction Overview (04/05/2017): 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 Cleaning Bradycardia Resolved Problems Problem Noted Date Diagnosed Date Resolved Date Pressure ulcer of left heel, stage 3 06/28/2023 01/28/2024 Chronic ulcer of left heel w ith necrosis of muscle 02/08/2023 06/01/2023 Overview (02/08/2023): Added automatically from request for surgery [id number] Osteomyelitis of second toe of left foot 02/05/2023 06/01/2023 Overview (02/05/2023): Added automatically from request for surgery [id number] Atherosclerosis of [place] of left lower extremity with ulceration 09/07/2022 06/01/20 23 Atherosclerosis of [place] of left lower extremity with gangrene 03/05/2022 06/01/2023 NM (myocardial infarction) 06/27/2016 0 06/01/2023 STEMI (ST elevation myocardial infarction) 06/01/2023 Overview (04/05/2017): STEMI with 3 NORI to RCA Foot ulceration, left, with necrosis of muscle 04/07/2024 Chronic toe ulcer, left, wit h necrosis of bone 06/01/2023 Encounters Date Type Department Care Team Description 04/23/2025 2:30 PM EDT - 04/23/2025 11:59 PM EDT Hospital Encounter [facility] [place] [address] [place] [address] Jabari Corado Jr., MD Pressure ulcer of left heel, stage 4 (HCC) (Primary Dx); 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) Discharge Disposition: Home or Self Care 04/16/2025 2:30 PM EDT - 04/16/2025 11:59 PM EDT Hospital Encounter [facility] [place] [address] [facility] [address] Cristi Pelletier DPM 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) (Primary Dx); Pressure ulcer of left heel, stage 4 (HCC) Discharge Disposition: Home or Self Care 03/27/2025 8:00 AM EDT Office Visit [facility] [address] [place] [phone] Vishnu Penn MD PAD (peripheral artery disease) (Primary Dx); Former smoker-quit 2021; Small vessel disease 03/26/2025 1:15 PM EDT - 03/26/2025 11:59 PM EDT Hospital Encounter [facility] [place] [address] [place] [address] Cristi Pelletier DPM Pressure ulcer of left heel, stage 4 (HCC) (Primary Dx) Discharge Disposition: Home or Self Care 03/12/2025 1:53 PM EDT - 03/12/2025 11:59 PM EDT Hospital Encounter [facility] W[facility] Center [address] [place] [address] Kirt Dolan DPM 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) (Primary Dx); Stage III pressure ulcer of left heel (HCC); PAD (peripheral artery disease) Discharge Disposition: Home or Self Care 02/26/2025 3:15 PM EDT - 02/26/2025 11:59 PM EDT Hospital Encounter [facility] W[facility] Center [address] [place] [address] Kirt Dolan DPM Ischemic ulcer of left foot with fat layer exposed (HCC) (Primary Dx); 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); Stage III pressure ulcer of left heel (HCC); PAD (peripheral artery disease); Claudication of right lower extremity Discharge Disposition: Home or Self Care 02/20/2025 12:55 PM EDT - 02/20/2025 11:59 PM EDT Hospital Encounter [facility] [address] [place] [address] Nette Jalloh APRN PAD (peripheral artery disease); Peripheral vascular angioplasty status with implants and grafts Discharge Disposition: Home or Self Care 02/12/2025 2:25 PM EDT - 02/12/2025 11:59 PM EDT Hospital Encounter [facility] Wound Care [place] [address] [place] [address] Cristi Pelletier DPM 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) (Primary Dx); Stage III pressure ulcer of left heel (HCC) Discharge Disposition: Home or Self Care 02/07/2025 9:40 AM EDT Office Visit [facility] [address] [place] [address] Nette Jalloh APRN PAD (peripheral artery disease) (Primary Dx); Primary hypertension; Chronic obstructive pulmonary disease, unspecified COPD type (HCC); Peripheral vascular angioplasty status with implants and grafts; S/P insertion of iliac artery stent 02/01/2025 2:58 PM EDT - 02/01/2025 11:59 PM EDT Hospital Encounter [facility] [place] [address] [address] [facility] [address] Cristi Pelletier DPM Stage III pressure ulcer of left heel (HCC) (Primary Dx) Discharge Disposition: Home or Self Care from Last 3 Months Surgical History Surgery Date Site/Laterality Comments CARDIAC PACEMAKER PLACEMENT 11/05/2016 SJM Dual PPM CORONARY ANGIOPLASTY WITH STENT PLACEMENT [...] IR REVAS FEM POP ART UNILAT W [employer]F [employer]IAN BRANCH OR DEPARTMENT 03/13/2022 IR REVAS FEM POP ART UNILAT W [employer] OR DEPARTMENT 03/13/2022 Kashif Wong MD EDG IR COLONOSCOPY HAMMER TOE SURGERY 06/15/2022 Foot/Ankle/Left Left foot Correction of hammer toe deformity with arthroplasty second and third toe. Left foot Application of skin graft substitute.; Surgeon: Jabari Hill DPM; Location: [facility] MAIN OR; Service: Podiatry Medical devices from this surgery are in the Medical Devices section. SKIN GRAFT 06/15/2022 Left Surgeon: Jabari Hill DPM; Location: [facility] OR; Service: Podiatry Medical devices from [...] substitute. ; Surgeon: Jabari Hill DPM; Location: [facility] MA[facility] OR; Service: Orthopedics Medical devices from this surgery are in the Medical Devices section. SKIN GRAFT 12/23/2022 Left . ; Surgeon: Jabari Hill DPM; Location: [facility] MA[facility] OR; Service: Orthopedics Medical devices from this surgery are in the Medical Devices section. TOE AMPUTATION 02/10/2023 Foot/Ankle/Left Foot/Ankle/Left Left foot second toe amputation, Left foot excisional debridement with application of skin graft substitute; Surgeon: Jabari Hill DPM; Location: [facility] MA[facility] OR; Service: Orthopedics Medical devices from this surgery are in the Medical Devices section. FOOT SURGERY 02/10/2023 Foot/Ankle/Left Surgeon: Jabari Hill DPM; Location: [facility] OR; Service: Orthopedics Medical devices from this surgery are in the Medical Devices section. SKIN GRAFT 02/10/2023 Surgeon: Jabari Hill DPM; Location: [facility] OR; Service: Orthopedics Medical devices from this surgery are in the Medical Devices section. TOE AMPUTATION 05/19/2023 Foot/Ankle/Left Left Left Left foot, amputation of third toe. Left foot, wound debridment application. Left foot, skin graft substitute. Left foot wound debridment closure.; Surgeon: Jabari Hill DPM; Location: [facility] OR; Service: Orthopedics Medical devices from this surgery are in the Medical Devices section. DEBRIDEMENT 05/19/2023 Left .; Surgeon: Jabari Hill DPM; Location: [facility] OR; Service: Orthopedics Medical devices from this surgery are in the Medical Devices section. LAYER WOUND CLOSURE 05/19/2023 Left .; Surgeon: Jabari Hill DPM; Location: [facility] OR; Service: Orthopedics Medical devices from this surgery are in the Medical Devices section. FOOT SURGERY 06/06/2023 Foot/Ankle/Left left FOOT TRANSMETATARSAL amputation; Surgeon: Jabari Hill DPM; Location: [facility] MAIN OR; Service: Podiatry Medical devices from [...] IR REVAS FEM POP ART UNILAT W [employer] OR DEPARTMENT 06/02/2023 IR REVAS FEM POP ART UNILAT W [employer] OR DEPARTMENT 06/02/2023 Vishnu Penn MD EDG IR IR [...] IR REVAS FEM POP ART UNILAT W [employer] OR DEPARTMENT 12/28/2024 IR REVAS FEM POP ART UNILAT W [employer] OR DEPARTMENT 12/28/2024 Vishnu Penn MD EDG IR IR [...] 25% COPD (chronic obstructive pu lmonary disease) (HCC) HLD (hyperlipidemia) Hypertension Emphysema, unspecified (HCC) CAD (coronary artery disease) STEMI (ST elevation myocardi al infarction) ([facility]) STEMI with 3 NORI to RCA Cardiac pacemaker [facility] Dual PPM - Dr. Cleaning History of cardiac cath 03/23/[address] aced in Right leg 03/23/2017 NM (myocardial infarction) ([facility]) 06/2016 Depression with anxiety Essential hypertension Chronic systolic heart failure (HCC) Sinus node dysfunction (HCC) M Dual PPM 11/05/2016 - Dr. Cleaning Bradycardia [...] 12/28/2024 [facility] - Occupational Stress Questionnaire Answer [...] living? No 05/29/2023 [facility] IP Transportation Answer D ate Recorded In [...] 16 04/23/2025 2:55 PM EDT Oxygen Saturation 96% 01/01/2025 2:00 PM EDT Inhaled Oxygen Concentration - - Weight 69.8 kg (153 lb 12.8 oz) 03/27/2025 8:38 AM EDT Height 162.6 cm (5' 4 ) 03/27/2025 8:38 AM EDT Body Mass Index 26.4 03/27/2025 8:38 AM EDT Plan of Treatment Upcoming Encounters Date Type Department Care Team (Late st Contact Info) Description 05/07/2025 1:45 PM EDT Appointment [facility] [place] [address] [address] [facility] [address] Jabari Corado Jr., MD [address] [place] [address] [address] [place] [phone] 05/10/2025 10:20 AM EDT Office Visit [facility] [address] [place] [address] [place] [phone] Nette Jalloh APRN [address] [place] [address] [id number] 11/12/2025 1:30 PM EST Appointment [facility] [address] [place] [address] [place] [phone] Nette Jalloh APRN [address] [place] [address] [address] [place] [address] [id number] 11/12/2025 2:40 PM EST Office Visit [facility] [address] [place] [address] [place] [phone] Nette Jalloh APRN [address] [place] [address] [address] [place] [address] Health Maintenance Due Date Last Done [...] or Tdap) 08/30/2024 08/30/2014, 06/21/1998 Influenza Vaccine (#1) 2025 , 07/09/2021, 07/13/2017, Additional history exists Meningococcal B [...] tibial pulses. Medical Devices Implanted Type Area Track Supervisor Device Identifier Shelf Expiration Date Model / Serial / Lot Defib Graft Tissue Myriad Thin 5 X 5cm - [id number] Implanted:Qty: 1 on 06/15/2022 by Jabari Hill DPM at [facility] Left: Foot [employer]OA [employer] 07/27/2022 [id number] US / / [id number] Wire Denise 0.208ptt6.5in Microaire Smth Dbl End Tro Pnt - [id number] Implanted:Qty: 2 on 06/15/2022 by Jabari Hill DPM at [facility] Left: Foot MICROAIRE SURG INSTR 11/22/2025 [id number] / / [id number] Stent Enpros 8mm 7fr Intro 38mm 80cm Icast Trachbr Be Cvr-11/04/2022 Implanted:Qty: 1 on 11/04/2022 by Vishnu Penn MD Left: Iliac Artery [employer]E [employer] [place] [id number] / / [id number] Graft Tissue Myriad Thin 5 X 5cm - [id number] Implanted:Qty: 1 on 12/23/2022 by Jabari Hill DPM at [facility] Left: Foot [employer] 02/24/2025 [id number] US / / [id number] Graft Ovine Tissue 500mg Beatriz Duque - [id number] Implanted:Qty: 1 on 12/23/2022 by Jabari Hill DPM at [facility] Left: Foot [employer] 07/27/2023 [id number] / / [id number] Graft Tissue Myriad Thin 5 X 5cm - [id number] Implanted:Qty: 1 on 02/10/2023 by Jabari Hill DPM at [facility] Left: Heel [employer]OS[employer] 03/26/2025 [id number] US / / [id number] Graft Tissue Myriad Thin 5 X 5cm - [id number] Implanted:Qty: 1 on 05/19/2023 by Jabari Hill DPM at [facility] Left: Foot [employer] 03/26/2025 [id number] US / / [id number] Graft Tissue Myriad Thin 5 X 5cm - [id number] Implanted:Qty: 1 on 06/06/2023 by Jabari Hill DPM at [facility] Left: Heel [employer] BIOS[employer]GERY 02/24/2025 [id number] US / / [id number] Procedures Procedure Name Priority Date/Time Associated Diagnosis Comments [facility]UP[facility] COMPLETE Routine 02/20/2025 2:08 PM EDT PAD (peripheral artery disease) Peripheral vascular angioplasty status with implants and grafts from Last 3 Months Results * [facility] ART[facility] DUPLEX COMPLETE (02/20/2025 2:08 PM EDT) Anatomical Region Laterality Modality Vascular, Leg Electrocardiogra phy 02/20/2025 1:19 PM EDT Impressions 02/20/2025 2:26 PM EDT Conclusions * Right: * RODOLFO: 0.63 (DPA, distal [employer] OR DEPARTMENT occluded) / TBI: 0, absent waveform. There is an occlusion of the distal posterior tibial artery. Dampened, biphasic flow of the proximal and mid posterior tibial artery. Mild to moderate plaque noted in the arteries of the right lower extremity. * Left: * RODOLFO: 1.29 ([employer]F [employer]IAN BRANCH OR DEPARTMENT) / TBI: 0, metatarsal amputation. 20-49 % stenosis of the profunda, 145 cm/s. There is an occlusion of the proximal anterior tibial artery and the mid peroneal artery. Mild to moderate plaque noted in the arteries of the left lower extremity. Narrative Procedure Note Eusebio De Leon MD - 02/20/2025 IMPRESSION Conclusions * Right: * RODOLFO: 0.63 (DPA, distal [employer]ANCH OR DEPARTMENT occluded) / TBI: 0, absent waveform. Thereis an occlusion of the distal posterior tibial artery. Dampened, biphasicflow of the proximal and mid posterior tibial artery. Mild to moderate plaquenoted in the arteries of the right lower extremity. * Left: * RODOLFO: 1.29 ([employer] BRANCH OR DEPARTMENT) / TBI: 0, metatarsal amputation. 20-49 % stenosis ofthe profunda, 145 cm/s. There is an occlusion of the proximal anteriortibial artery and the mid peroneal artery. Mild to moderate plaque noted in the arteries of the left lower extremity. Nette Jalloh SERGING MACHINE OPERATOR IMG VASCULAR ORDERABLES Final R esult from Last 3 Months Insurance [facility] [address] Advance Directives For more information, please contact: [phone] * Full Code (Latest Code Status on File) Date Activated Date Inactivated Comments 12/27/2024 10:43 PM 01/01/2025 9:14 PM * Full Code Date Activated Date Inactivated Comments 05/28/2023 10:35 AM 06/11/2023 9:55 PM Care Teams Eight Section Blower Relationship Specialty Start Date End Date William Hunter MD [address] [place] [address] PCP - General Internal Medicine-Adolescent Medicine 05/28/23 González Gotti MD [address] [place] [address] [place] [address] Consulting Physician Internal Medicine - Clinical Cardiac Electrophysiology 04/05/17 Cristi Cleaning MD [address] [place] [address] [place] [address] Physician Internal Medicine-Cardiovascular Disease 04/05/17
--- OUTSIDE RECORDS SUMMARY | 2025-05-02 11:05 | XMS_ITS | Encounter Summary ---
Author Organization Healthcare Address [address] [place] [address] Care Team Providers Care Clamp Carrier Operator Name Role Phone Fariha Henderson APRN Primary Care Provider [phone] Encounter Details Date Type Department Care Team (Late st Contact Info) Description 02/18/2022 [facility] [address] [place] [address] Jabari Goetz MD [address] [facility] [address] [place] [address] PAD (peripheral artery disease) (CMS/HCC) [...] disease documented in this encounter Care Teams Clamp Carrier Operator Relationship Specialty Start Date End Date Fariha Henderson APRN [address] [place] [address] PCP - General 02/07/21 documented as of this encounter
--- OUTSIDE RECORDS SUMMARY | 2025-05-02 11:05 | XMS_ITS | Patient Health Record ---
Author Organization [facility] D [facility] Address [address] [place] [address] Care Team Providers Care Fourchette Sewer Name Role Phone William Hunter Primary Care Provider [phone] Sarah Wing Unavailable [phone] Migration, Provider Unavailable Unavailable Allergies Allergen (clinical drug ingredient) Drug/Non Drug Allergy documented on EMR Reaction Allergy Type Onset Date Status Substance with 5-xulsiih-7-methylg lutaryl-coenzyme A reductase inhibitor mechanism of action [...] review and pick correct strength-formula tion from [employer] options. If intended option is not shown, discontinue and re-order from Quick Search* Active hydrOXYzine HCl 25 MG 1 tab(s) orally 2 times a day; Duration: 30 days 06/24/2023 Active Nitroglycerin 0.4 MG 1 tab(s) sublingually every 5 minutes prn Active Eliquis 5 mg TAKE ONE TABLET BY MOUTH TWICE DAILY; Duration: 60 Active rOPINIRole HCl 0.25 MG 1 tab(s) [...] Status W/U Status Risk Notes Problem Insomnia (087871655) Insomnia due to medical condition (G47.01) Active confirmed Problem Essential hypertension (96444288) Essential (primary) hypertension (I10) Active confirmed Problem Ventricular tachycardia (93407522) Ventricular tachycardia (I47.2) Active confirmed Problem Paroxysmal atrial fibrillation (346619274) Paroxysmal atrial fibrillation (I48.0) Active confirmed Problem Ventricular fibrillation (66659538) Ventricular fibrillation (I49.01) Active confirmed Problem Stricture of artery (41605094) Stricture of artery (I77.1) Active confirmed Problem Chronic ulcer of skin (91066837) Non-pressure chronic ulcer of skin of other sites with unspecified severity (L98.499) Active confirmed Problem Long-term current use of anticoagulant (905116721) oysterman (current) use of anticoagulants (Z79.01) Active confirmed Problem Mixed anxiety and depressive disorder (921561915) Depression with anxiety (F41.8) Active confirmed Problem Neuropathy (154422901) Neuropathy (G62.9) Active confirmed Problem Essential hypertension (71514749) Essential hypertension (I10) Active confirmed Problem Hyperlipidaemia (70529349) Hyperlipemia (E78.5) Active confirmed Problem Atrial fibrillation (39871281) Atrial fibrillation (I48.91) Active confirmed Problem Gastroesophageal reflux disease without esophagitis (227835103) Gastroesophageal reflux disease without esophagitis (K21.9) Active confirmed Problem Atherosclerotic heart disease of [place] coronary artery without angina pectoris (385521591667262) Coronary artery disease involving [place] coronary artery of [place] heart without angina pectoris (I25.10) Active confirmed Problem COPD - Chronic obstructive pulmonary disease (83609780) Chronic obstructive pulmonary disease, unspecified COPD type (J44.9) Active confirmed Problem Chronic systolic heart failure (336965331) Chronic systolic heart failure (I50.22) Active confirmed Problem Chronic bronchiolitis (806192979) Chronic bronchiolitis (J44.9) Active confirmed Problem Peripheral arterial disease (915434885) Peripheral arterial disease (I73.9) Active confirmed Problem Kidney stone (66344217) Kidney stone (N20.0) Active confirmed Problem Generalized anxiety disorder (24854844) TRISH (generalized anxiety disorder) (F41.1) Active confirmed Problem Insomnia (391123396) Insomnia, unspecified type (G47.00) Active confirmed Problem Ventricular tachyarrhythmia (6893027) Ventricular tachyarrhythmia (I47.2) Active confirmed Problem Cardiac pacemaker in situ (363892041) History of pacemaker (Z95.0) Active confirmed Problem Atherosclerosis of coronary artery (552811809) Atherosclerosis of [place] coronary artery of [place] heart with other form of angina pectoris (I25.118) Active confirmed Problem Automatic implantable cardiac defibrillator in situ (420175956) Presence of automatic implantable cardioverter-defib rillator (Z95.810) Active confirmed Problem Mass of right adrenal gland (finding) (10320381700431521) Adrenal mass, right (E27.9) Active confirmed Problem Seasonal allergic rhinitis (268866061) Seasonal allergic rhinitis, unspecified allergic rhinitis trigger (J30.2) Active confirmed Problem Old myocardial infarction (8900469) History of ST elevation myocardial infarction (STEMI) (I25.2) Active confirmed Problem Automatic implantable cardiac defibrillator in situ (439702573) Presence of combination internal cardiac defibrillator (ICD) and pacemaker (Z95.810) Active confirmed Problem Arteritic leg ulcer (disorder) (603160847) Arterial leg ulcer (L97.909) Active confirmed Problem Chronic obstructive pulmonary disease (47005567) Advanced COPD (J44.9) Active confirmed Problem Betaxolol allergy (238016804) Betaxolol allergy (Z88.8) Active confirmed Problem Hypertensive heart failure (06400448) Unspecified hypertensive heart disease with heart failure (I11.0) Active confirmed Vital Signs Heart Rate 96 /min 02/27/2025 Temperature 97.0 degrees Fahrenheit 02/27/2025 Blood pressure diastolic 88 mm Hg 02/27/2025 Height 64 in 02/27/2025 Blood pressure systolic 136 mm Hg 02/27/2025 Weight 154 lbs 02/27/2025 BMI 26.43 kg/m2 02/27/2025 Encounters Encounter Location Date Provider Diagnosis [facility] [place] [address] [place] [address] 12/30/2024 Provider Migration [facility] [address] [place] [address] 02/27/2025 Sarah Wing Routine medical exam Z00.00 ; Coronary artery disease involving klaw[place] coronary artery of [place] heart without angina pectoris I25.10 ; Gastroesophageal reflux disease without esophagitis K21.9 ; Chronic systolic heart failure I50.22 ; Peripheral arterial disease I73.9 ; Paroxysmal atrial fibrillation I48.0 ; Hyperlipemia E78.5 ; correction (current) use of anticoagulants Z79.01 ; Essential hypertension I10 ; Encounter for screening for malignant neoplasm of colon Z12.11 ; Visit for screening mammogram Z12.31 and BMI 26.0-26.9,adult Z68.[address] [place] [address] [address] 10/02/2024 William Hunter [address] [place] [address] 01/29/2025 Sarah Wing [facility] [address] [place], [place] [address] 02/27/2025 Sarah Wing [facility] [place] [address] [facility] [address] [place] [address] 03/05/2025 William Hunter [facility] [place] [address] [place], [place] [address] 03/21/2025 Sarah Wing Abnormal mammogram R 92.8 Assessments Encounter Date Diagnosis (ICD Code) Assessment Notes Treatment Notes Treatment Clinical Notes Section Notes 02/27/2025 Routine medical exam (ICD-10 - Z00.00) Needs mammogram and cologuard, will arrange again 02/27/2025 Coronary artery disease involving klawock coronary artery of [place] heart without angina pectoris (ICD-10 - I25.10) [...] well. WIll check fasting lipid panel 02/27/2025 oysterman (current) use of anticoagulants (ICD-10 - Z79.01) [...] PANEL, STANDARD (7600) 10/19/2023 COMPREHENSIVE METABOLIC PANEL (00169) COMPREHENSIVE METABOLIC PANEL (48541) CBC (INCLUDES DIFF/PLT) (6399) 4 CBC (INCLUDES DIFF/PLT) (6399) 5 Insurance Providers Payer Name Payer Address Payer Phone Subscriber Number Group Number Insured Name Patient Relationship to Insured Coverage Start Date Coverage End Date [employer] [facility] [address] [address] [place] [address] [id number] Ashley Ding Self - patient is the [...] toe Hospitalization History Reason Date(Month/Year) [facility] blood cot 12/2024 [facility] 05/2023 H- defibrillator shock, foot infection 12/2021 chest pain 2006 OR 06/2016
--- OUTSIDE RECORDS SUMMARY | 2025-05-02 11:05 | XMS_ITS | Clinical Summary ---
Author Organization Healthcare Address [address] [place] [address] Care Team Providers Care Jail Officer Name Role Phone Fariha Henderson APRN Primary Care Provider [phone] Social History Tobacco Use Types Packs/Day Years Used Date Smoking Tobacco: Never Assessed Comments Unknown Sex and Gender Information Value Date Recorded Sex Assigned at Not on file Legal Sex Female 7:27 PM EDT Gender Identity Not on file Sexual Orientation Not on file Plan of Treatment Not on file Care Teams Jail Officer Relationship Specialty Start Date End Date Fariha Henderson APRN [address] [place] [address] PCP - General 02/07/21
== END 2025-05-02 23:59 | disposition home or self-care (01) ==
LOC: RAD 11:02 → RT 11:11
PROVIDERS: PCP Internal Medicine Adolescent Medicine; Visit Provider Internal Medicine
DX: I25.10 Atherosclerotic heart disease of native coronary artery without angina pectoris (principal); I50.9 Heart failure, unspecified; I42.9 Cardiomyopathy, unspecified; R93.1 Abnormal findings on diagnostic imaging of heart and coronary circulation
CPT/HCPCS: 93306

== ENCOUNTER 2025-05-08 12:46 | Outpatient (CLI) | payer OTHER, SELFPAY ==
--- OUTSIDE RECORDS SUMMARY | 2024-12-30 17:30 | XMS_ITS ---
Author Organization [facility] Address [address] [place] [address] Care Team Providers Care Research Agricultural Engineer Name Role Phone William Hunter Primary Care Provider Sarah Wing Unavailable [phone] Migration, Provider Unavailable Unavailable Allergies Allergen (clinical drug ingredient) Drug/Non Drug Allergy documented on EMR Reaction Allergy Type Onset Date Status Substance with 1-gwvuuug-2-methylg lutaryl-coenzyme A reductase inhibitor mechanism of action (substance) Statins couldnt walk Drug Allergy Active codeine Codeine Unknown Drug Allergy Active hydrocodone HYDROcodone itchy and nausea Drug Allergy Active RE[facility] Encounter Medications Medication SIG (Take, Route, Frequency, Duration) Notes Start Date End Date Status Metoprolol Succinate ER 100 MG TAKE 1 AND 1/2 TABLET BY MOUTH TWICE DAILY; Duration: 30 days Active Aspirin 81 MG 1 TAB(S) ORALLY ONCE A DAY *Please review and pick correct strength[facility]formula [facility]ion [facility]. If intended option is not shown, [...] Active Encounters Encounter Location Date Provider Diagnosis [facility] [address] [facility] [address] [place] [address] 12/30/2024 Provider Migration Plan Of Treatment Medication [...] day(s) 08/29/2024 Progress Notes * Rodo GLEZB:1965 (59 yo F)Acc No.[id number]:12/30/2024 Patient: Ashley NICOLE Provider: Janell elizabeth Migration :1965 Mamta ge:59 Y S ex:Female Date:12/30/2024 [id number] Pcp:William Hunter Subjective: * Chief Complaints: * 1 . Multum To Medispan Conversion Encounter. * Medical History: * Medications: T aking Aspirin 81 MG TABLET 1 TAB(S) ORALLY ONCE A DAY , Notes to Pharmacist: *Please review and pick correct strength-formulation from [facility] options. If intended option is not shown, [...] Electronic signature of Prov ider Migration on 05/08/2025 at 12:48 PM EDT Sign off status: Pending * Provider: Janell elizabeth Migration Date: 0 12/30/2024 Generated for Zuleima crockett/Joe/Farrukh on: 0 05/08/2025 12:48 PM EDT
--- OUTSIDE RECORDS SUMMARY | 2025-03-12 13:53 | XMS_ITS | Encounter Summary ---
Author Organization [place] [address] Care Team Providers Care Envelope Fold Operator Name Role Phone González Gotti MD Unavailable [phone] Cristi Cleaning MD Unavailable [phone] William Hunter MD Primary Care Provider [phone] Reason for Referral * In Office Procedure (Routine) - Pending Review Specialty Diagnoses / Procedures Referred By Contac t Referred To Contact Diagnoses Stage III pressure ulcer of left heel (HCC) 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) PAD (peripheral artery disease) Procedures TN DEBRIDEMENT SUBCUTANEOUS TISSUE 1ST 20 SQ CM/< Kirt Dolan DPM [address] [place] [address] Phone: tel: fax: Referral ID Status Reason Start Date Expiration Date V isits Requested Visits Authorized [id number] Pending Review 03/12/2025 03/12/2026 1 1 * (Routine) - Pending Review Specialty Diagnoses / Procedures Referred By Contac t Referred To Contact Diagnoses Stage III pressure ulcer of left heel (HCC) Procedures [facility] PRIMARY DRESSING Kirt Dolan DPM [address] [place] [id number] Phone: tel: fax: Referral ID Status Reason Start Date Expiration Date V isits Requested Visits Authorized [id number] Pending Review 03/12/2025 03/12/2026 1 1 Reason for Visit * Reason Comments Non-healing Wound * Consultation (Routine) - Authorization Not Needed Specialty Diagnoses / Procedures Referred By Brian t Referred To Contact Wound Care Diagnoses Wound Care Procedures TN DEBRIDEMENT SUBCUTANEOUS TISSUE 1ST 20 SQ CM/< TN DEBRIDEMENT MUSCLE &/FASCIA 1ST 20 SQ CM/< TN DEBRIDEMENT BONE 1ST 20 SQ CM/< TN DEBRIDEMENT SUBCUTANEOUS TISSUE EA ADDL 20 SQ CM TN DEBRIDEMENT MUSCLE &/FASCIA EA ADDL 20 SQ CM TN DEBRIDEMENT BONE EACH ADDITIONAL 20 SQ CM TN DEBRIDEMENT OPEN WOUND FIRST 20 SQ CM/< TN DEBRIDEMENT OPN WND EA ADDL 20 SQ CM/PRT THEREOF [facility] [place] [address] [address] [facility] [place] [address] Phone: tel: fax: Referral ID Status Reason Start Date Expiration Date Visits Requested Visits Authorized [id number] Authorization Not Needed Specialty Services Required 5 01/08/2026 99 99 Encounter Details Date Type Department Care Team (Late st Contact Info) Description 03/12/2025 1:53 PM EDT - 03/12/2025 11:59 PM EDT Hospital Encounter [facility] [address] [place] [address] Kirt Dolan DPM [address] [place] [id number] Atherosclerosis of artery of extremity with ulceration [...] drink = 0.6 oz pur e alcohol) [facility] Utilities Answer Date Recorded In the past 12 months has e Tic[employer], gas, oil, or water company threatened to shut off services in your home? No 12/28/2024 Overall Financial Resource Strain (CARDIA) Answe r Date Recorded How hard is it for you to pa y for the very basics like food, housing, medical care, and heating? Not hard at all 12/28/2024 PHQ-2 Answer Date Recorded PHQ-2 Total Score 0 12/28/2024 [facility] - Occupational Stress Questionnaire Answer Date [...] things needed for daily living? No 05/29/2023 [facility] IP Transportation Answer D ate Recorded In [...] days. fluticasone propionate (FLONASE) 50 mcg/actuation Nasl [place], Suspension 1 spay each nostril twice daily [...] 5 minutes as needed for Chest pain. oxymetazoline (AFRIN) 0.05 % Nasl [place], Non-Aerosol 1 [place] by Nasal route as needed for Congestion [...] GONE -- FINISH ALL MEDICINE -- 12/05/2024 oxyCODONE-acetami nophen (PERCOCET) 5-325 mg Oral Tablet Take 1-2 Tablets by mouth every 4 hours as needed for Acute Pain (R52). 30 Tablet 06/11/2023 12:19 PM EDT 06/11/2023 documented as of this encounter Discharge Disposition [...] Bradycardia CAD (coronary artery disease) Cardiac pacemaker [facility] Dual PPM 11/05/2016 - Dr. Cleaning Chronic systolic heart failure ([facility]) COPD (chronic obstructive pulmonary disease) ([facility]) Depression with anxiety Emphysema, unspecified ([facility]) Essential hypertension Headache Heartburn History of cardiac cath 03/23/2017 Stent placed in Right leg 03/23/2017 HLD (hyperlipidemia) Hypertension MA (myocardial infarction) ([facility]) 06/2016 Pacemaker Post-operative nausea and vomiting Sinus node dysfunction ([facility]) [facility] Dual PPM 11/05/2016 - Dr. Cleaning STEMI (ST elevation myocardial infarction) ([facility]) STEMI with 3 NORI to RCA Systolic heart failure ([facility]) 02/2017 ECHO, EF 25% Patient Active Problem List Diagnosis Date Noted Claudication of right lower extremity 02/26/2025 Pressure ulcer of left heel, stage 4 ([facility]) 01/09/2025 Critical limb ischemia of both lower extremities ([facility]) 12/28/2024 DVT, lower extremity, distal, [...] situ 12/07/2023 Insomnia 12/07/2023 Kidney stone 12/07/2023 rn long term care current use of anticoagulant therapy 12/07/2023 Neuropathy 12/07/2023 Non-pressure chronic ulcer of skin of other sites with unspecified severity ([facility]) 12/07/2023 Palpitations 12/07/2023 Atrial fibrillation with rapid ventricular response ([facility]) 12/07/2023 Seasonal allergic rhinitis 12/07/2023 Sinusitis 12/07/2023 Stented coronary artery 12/07/2023 Typical angina 12/07/2023 Ventricular fibrillation ([facility]) 12/07/2023 Ventricular fibrillation seen on clinical research monitor ([facility]) 12/07/2023 Ventricular tachyarrhythmia ([facility]) 12/07/2023 Failed flap 06/28/2023 Skin flap necrosis ([facility]) 06/28/2023 Atherosclerosis of artery of extremity with ulceration ([facility]) 06/02/2023 PAD (peripheral artery disease) 06/01/2023 S/P foot surgery 06/01/2023 Cellulitis of left lower extremity 05/28/2023 Open wound of left foot 04/26/2023 Hammertoe of left foot 06/08/2022 Pain in left foot 06/08/2022 Gangrene of left foot ([facility]) 06/08/2022 Vaping nicotine dependence, non-tobacco [...] 05/19/2023 .; Surgeon: Jabari Hill DPM; Location: [facility]; Service: Orthopedics FEMUR FRACTURE SURGERY Right right femur fx repair FOOT SURGERY FOOT SURGERY Left 12/23/2022 Left foot heel and second and third toe debridement with application of skin graft substitute. ; Surgeon: Jabari Hill DPM; Location: [facility]; Service: Orthopedics FOOT SURGERY Left 02/10/2023 Surgeon: Jabair Hill DPM; Location: [facility]; Service: Orthopedics FOOT SURGERY Left 06/06/2023 left FOOT TRANSMETATARSAL amputation; Surgeon: Jabari Hill DPM; Location: [facility]; Service: Podiatry HAMMER TOE SURGERY Left 06/15/2022 Left foot Correction of hammer toe deformity with arthroplasty second and third toe. Left foot Application of skin graft substitute.; Surgeon: Jabari Hill DPM; Location: [facility]; Service: Podiatry HIP SURGERY [...] IR REVAS FEM POP ART UNILAT W CAFE HELPER 03/13/2022 IR REVAS FEM POP ART UNILAT W CAFE HELPER 03/13/2022 Kashif Wong MD [facility] IR REVAS FEM POP ART UNILAT W CAFE HELPER 06/02/2023 IR REVAS FEM POP ART UNILAT W CAFE HELPER 06/02/2023 Vishnu Penn MD [facility] IR IR REVAS FEM POP ART UNILAT W CAFE HELPER 12/28/2024 IR REVAS FEM POP ART UNILAT W CAFE HELPER 12/28/2024 Vishnu Penn MD [facility] IR IR [...] 05/19/2023 .; Surgeon: Jabari Hill DPM; Location: [facility]; Service: Orthopedics SKIN GRAFT Left 06/15/2022 Surgeon: Jabari Hill DPM; Location: [facility]; Service: Podiatry SKIN GRAFT Left 12/23/2022 . ; Surgeon: Jabari Hill DPM; Location: [facility]; Service: Orthopedics SKIN GRAFT 02/10/2023 Surgeon: Jabari Hill DPM; Location: [facility]; Service: Orthopedics TOE AMPUTATION Left 02/10/2023 Left foot second toe amputation, Left foot excisional debridement with application of skin graft substitute; Surgeon: Jabari Hill DPM; Location: [facility]; Service: Orthopedics TOE AMPUTATION Left 05/19/2023 Left foot, amputation of third toe. Left foot, wound debridment application. Left foot, skin graft substitute. Left foot wound debridment closure.; Surgeon: Jabari Hill DPM; Location: [facility]; Service: Orthopedics Family History [...] days. fluticasone propionate (FLONASE) 50 mcg/actuation Nasl [place], Suspension 1 spay each nostril twice daily [...] Tablet 0 oxymetazoline (AFRIN) 0.05 % Nasl [place], Non-Aerosol 1 [place] by Nasal route as needed for Congestion [...] days. fluticasone propionate (FLONASE) 50 mcg/actuation Nasl [place], Suspension 1 spay each nostril twice daily [...] Tablet 0 oxymetazoline (AFRIN) 0.05 % Nasl [place], Non-Aerosol 1 [place] by Nasal route as needed for Congestion [...] days. fluticasone propionate (FLONASE) 50 mcg/actuation Nasl [place], Suspension 1 spay each nostril twice daily [...] Myalgia Ezetimibe Myalgia Rosuvastatin Myalgia Simvastatin Myalgia Mnqisvu-Nuu-Ktr Reductase Inhibitors Other (See Comments) Joint pain [...] * Right: * RODOLFO: 0.63 (DPA, distal CAFE HELPER occluded) / TBI: 0, absent waveform. There is an occlusion of the distal posterior tibial artery. Dampened, biphasic flow of the proximal and mid posterior tibial artery. Mild to moderate plaque noted in the arteries of the right lower extremity. * Left: * RODOLFO: 1.29 (CAFE HELPER) / TBI: 0, metatarsal amputation. 20-49 % [...] artery of extremity with ulceration (HCC) - TN DEBRIDEMENT SUBCUTANEOUS TISSUE 1ST 20 SQ CM/< Stage III pressure ulcer of left heel (HCC) - [facility] PRIMARY DRESSING - TN DEBRIDEMENT SUBCUTANEOUS TISSUE 1ST 20 SQ CM/< PAD (peripheral artery disease) - TN DEBRIDEMENT SUBCUTANEOUS TISSUE 1ST 20 SQ CM/< [...] TMA site- paint with betadine daily. 01/08 [facility] [employer] [facility] [employer] has been contacted to obtain [...] to reach out to our community health director, Hanna Riggs at [phone] for any discussion. WHO TO CALL FOR PROBLEMS: Please call the OP wound care center with any problems or issues you may have after your visit or though the week. Each patient is assigned a case specialist who can assist with issues you may be having. Individual office numbers are listed below. Press 1 for immediate or schedule needs, press 2 for the nursing line. The nurse line is for non-emergent needs and will be answered within 24 hours duringbus days. If you have a more immediate concern, press option #1. Office numbers: [phone] [place] [phone] [facility] [phone] Our offices do not have an on-call provider. If you have emergent needs after hours please contact your primary care provider. You may also utilize the [facility] Nurse NOW Helpline: [phone]-NOW for after-hours needs to get in contact with a nurse for assistance. * Addendum Note - Balbina Tong RN - 03/12/2025 2:00 PM EDTEncounter addended by: Balbina Tong, RN on: 03/13/2025 2:29 PM Actions taken: Flowsheet accepted, Charge Capture section accepted documented in this encounter Plan of Treatment Upcoming Encounters Date Type Department Care Team (Late st Contact Info) Description 05/14/2025 3:15 PM EDT Appointment [facility] [address] [place] [address] Cristi Pelletier, DPM [address] [address] 11/12/2025 1:30 PM EST Appointment [facility] [address] [place] [address] [address] [place] [address] Nette Jalloh APRN [address] [place] [address] [phone] 11/12/2025 2:40 PM EST Office Visit [facility] [address] [place] [address] [address] [place] [address] Nette Jalloh APRN [address] [place] [address] [phone] Scheduled Orders Name Type Priority Associated Diagnoses Orde r Schedule TN DEBRIDEMENT SUBCUTANEOUS TISSUE 1ST 20 SQ CM/< TN Charge Routine Stage III pressure ulcer of [...] Ordered Date First Orde red Date [facility] PRIMARY DRESS[facility] 1 03/12/2025 documented in this encounter Care Teams Envelope Fold Operator Relationship Specialty Start Date End Date William Hunter MD [address] [place] [address] [place] [address] PCP - General Internal Medicine-Adolescent Medicine 05/28/23 González Gotti MD [address] [place] [address] [place] [id number] Consulting Physician Internal Medicine - Clinical Cardiac Electrophysiology 04/05/17 Cristi Cleaning MD [address] [place] [address] [place] [address] Physician Internal Medicine-Cardiovascular Disease 04/05/17 documented as of this encounter
--- OUTSIDE RECORDS SUMMARY | 2025-03-21 05:38 | XMS_ITS ---
Author Organization [facility] Address [address] [place] [address] Care Team Providers Care Cytogeneticist Name Role Phone William Hunter Primary Care Provider Sarah Wing Unavailable [phone] REASON FOR VISIT ultrasound order Encounters Encounter Location Date Provider Diagnosis [facility] [address] [place] [address] 03/21/2025 Sarah Wing Abnormal mammogram R92.8 Assessments Encounter Date Diagnosis (ICD Code) Assessment Notes Treatment Notes Treatment Clinical Notes Section Notes 03/21/2025 Abnormal mammogram (ICD-10 - R92.8) Plan Of Treatment Pending Test Test Name Order Date Ultrasound : Breast, Left 03/21/2025 Progress Notes * Oz GLEZIdaliaB:1965 (59 yo F)Acc No.[id number]:03/21/2025 Patient: Ashley NICOLE :1965 A ge:59 Y S ex:Female Address:[place], [address] Subjective: * Chief Complaints: * U ltrasound order * Medical History: * Surgical History: * Hospitalization/Major Diagno stic Procedure: * Medications: Objective: * Vitals: * Physical Examination: Assessment: * Assessment: 1. A bnormal mammogram - R92.8 Plan: * Treatment: * Procedure Codes: * true * Date: Generated for Zuleima crockett/Joe/Farrukh on: 0 05/08/2025 12:48 PM EDT
--- OUTSIDE RECORDS SUMMARY | 2025-03-26 13:15 | XMS_ITS | Encounter Summary ---
Author [place] [address] Care Team Providers Care Vp Production Name Role Phone González Gotti MD Unavailable [phone] Cristi Cleaning MD Unavailable [phone] William Hunter MD Primary Care Provider [phone] Reason for Referral * In Office Procedure (Routine) - Pending Review Specialty Diagnoses / Procedures Referred By Contac t Referred To Contact Diagnoses Pressure ulcer of left heel, stage 4 (HCC) Procedures [place] DEBRIDEMENT MUSCLE &/FASCIA 1ST 20 SQ CM/< Cristi Pelletier DPM [address] [place] [phone] Phone: tel: fax: Referral ID Status Reason Start Date Expiration Date V isits Requested Visits Authorized [id number] Pending Review 04/01/2025 04/01/2026 1 1 * (Routine) - Pending Review Specialty Diagnoses / Procedures Referred By Contac t Referred To Contact Diagnoses Pressure ulcer of left heel, stage 4 (HCC) Procedures [facility] Cristi Pelletier DPM [address] [address] Phone: tel: fax: Referral ID Status Reason Start Date Expiration Date V isits Requested Visits Authorized [id number] Pending Review 03/26/2025 03/26/2026 1 1 Reason for Visit * Reason Comments Wound Check * Consultation (Routine) - Authorization Not Needed Specialty Diagnoses / Procedures Referred By Brian t Referred To Contact Wound Care Diagnoses Wound Care Procedures [place] DEBRIDEMENT SUBCUTANEOUS TISSUE 1ST 20 SQ CM/< [place] DEBRIDEMENT MUSCLE &/FASCIA 1ST 20 SQ CM/< [place] DEBRIDEMENT BONE 1ST 20 SQ CM/< [place] DEBRIDEMENT SUBCUTANEOUS TISSUE EA ADDL 20 SQ CM [place] DEBRIDEMENT MUSCLE &/FASCIA EA ADDL 20 SQ CM [place] DEBRIDEMENT BONE EACH ADDITIONAL 20 SQ CM [place] DEBRIDEMENT OPEN WOUND FIRST 20 SQ CM/< [place] DEBRIDEMENT OPN WND EA ADDL 20 SQ CM/PRT THEREOF [facility] W[facility] [address] [facility] [place] [address] Phone: tel: fax: Referral ID Status Reason Start Date Expiration Date Visits Requested Visits Authorized [id number] Authorization Not Needed Specialty Services Required 5 01/08/2026 99 99 Encounter Details Date Type Department Care Team (Latest Contact Info) Description 03/26/2025 1:15 PM EDT - 03/26/2025 11:59 PM EDT Hospital Encounter [facility] W[facility] [address] [place] [address] Cristi Pelletier DPM [address] [phone] Pressure ulcer of left heel, stage 4 (HCC) (Primary Dx) Discharge Disposition: Home or Self Care Social History Tobacco Use Types Packs/Day Years Used Date Smoking Tobacco: Former Cigarettes 0.3 40 0 12/26/1981 - 12/26/2021 Passive Smoke Exposure: Past Smokeless Tobacco: Never Alcohol Use Standard Drinks/Week Comments Not Currently 0 (1 standard drink = 0.6 oz pur e alcohol) [facility] Utilities Answer Date Recorded In the past 12 months has e [employer], gas, oil, or water company threatened to shut off services in your home? No 12/28/2024 Overall Financial Resource Strain (CARDIA) Answe r Date Recorded How hard is it for you to pa y for the very basics like food, housing, medical care, and heating? Not hard at all 12/28/2024 PHQ-2 Answer Date Recorded PHQ-2 Total Score 0 12/28/2024 [facility] - Occupational Stress [...] things needed for daily living? No 05/29/2023 [facility] [address] IP Transportation Answer D ate Recorded In [...] days. fluticasone propionate (FLONASE) 50 mcg/actuation Nasl [place], Suspension 1 spay each nostril twice daily [...] Chest pain. oxymetazoline (AFRIN) 0.05 % Nasl [place], Non-Aerosol 1 [place] by Nasal route as needed for Congestion [...] Bradycardia CAD (coronary artery disease) Cardiac pacemaker [facility] Dual PPM 11/05/2016 - Dr. Cleaning Chronic systolic heart failure ([facility]) COPD (chronic obstructive pulmonary disease) ([facility]) Depression with anxiety Emphysema, unspecified ([facility]) Essential hypertension Headache Heartburn History of cardiac cath 03/23/2017 Stent placed in Right leg 03/23/2017 HLD (hyperlipidemia) Hypertension IN (myocardial infarction) ([facility]) 06/2016 Pacemaker Post-operative nausea and vomiting Sinus node dysfunction ([facility]) 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 Cleaning STEMI (ST elevation myocardial infarction) ([facility]) STEMI with 3 NORI to RCA Systolic heart failure ([facility]) 02/2017 ECHO, EF 25% Past Surgical History: Procedure Laterality Date CARDIAC CATHETERIZATION Right 03/23/2017 stent placed in right leg CARDIAC PACEMAKER PLACEMENT 11/05/2016 [facility] Dual PPM COLONOSCOPY CORONARY ANGIOPLASTY WITH STENT PLACEMENT 06/2016 x3 DEBRIDEMENT Left 05/19/2023 .; Surgeon: Jabari Hill DPM; Location: [facility]; Service: Orthopedics FEMUR FRACTURE SURGERY Right right femur fx repair FOOT SURGERY FOOT SURGERY Left 12/23/2022 Left foot heel and second and third toe debridement with application of skin graft substitute. ; Surgeon: Jabari Hill DPM; Location: [facility]; Service: Orthopedics FOOT SURGERY Left 02/10/2023 Surgeon: Jabari Hill DPM; Location: [facility]; Service: Orthopedics FOOT SURGERY Left 06/06/2023 left FOOT TRANSMETATARSAL amputation; Surgeon: Jabari Hill DPM; Location: [facility] MAIN OR; Service: Podiatry HAMMER TOE SURGERY Left 06/15/2022 Left foot Correction of hammer toe deformity with arthroplasty second and third toe. Left foot Application of skin graft substitute.; Surgeon: Jabari Hill DPM; Location: [facility]; Service: Podiatry HIP SURGERY IR [...] IR REVAS FEM POP ART UNILAT W CHRISTIAN SCIENCE PRACTITIONER 03/13/2022 IR REVAS FEM POP ART UNILAT W CHRISTIAN SCIENCE PRACTITIONER 03/13/2022 Kashif Wong MD EDG IR IR REVAS FEM POP ART UNILAT W CHRISTIAN SCIENCE PRACTITIONER 06/02/2023 IR REVAS FEM POP ART UNILAT W CHRISTIAN SCIENCE PRACTITIONER 06/02/2023 Vishnu Penn MD EDG IR IR REVAS FEM POP ART UNILAT W CHRISTIAN SCIENCE PRACTITIONER 12/28/2024 IR REVAS FEM POP ART UNILAT W CHRISTIAN SCIENCE PRACTITIONER 12/28/2024 Vishnu Penn MD EDG IR IR [...] 05/19/2023 .; Surgeon: Jabari Hill DPM; Location: [facility]; Service: Orthopedics SKIN GRAFT Left 06/15/2022 Surgeon: Jabari Hill DPM; Location: [facility]; Service: Podiatry SKIN GRAFT Left 12/23/2022 . ; Surgeon: Jabari Hill DPM; Location: [facility]; Service: Orthopedics SKIN GRAFT 02/10/2023 Surgeon: Jabari Hill DPM; Location: [facility]; Service: Orthopedics TOE AMPUTATION Left 02/10/2023 Left foot second toe amputation, Left foot excisional debridement with application of skin graft substitute; Surgeon: Jabari Hill DPM; Location: [facility]; Service: Orthopedics TOE AMPUTATION Left 05/19/2023 Left foot, amputation of third toe. Left foot, wound debridment application. Left foot, skin graft substitute. Left foot wound debridment closure.; Surgeon: Jabari Hill DPM; Location: [facility]; Service: Orthopedics Current Outpatient Medications [...] days. fluticasone propionate (FLONASE) 50 mcg/actuation Nasl [place], Suspension 1 spay each nostril twice daily [...] Chest pain. oxymetazoline (AFRIN) 0.05 % Nasl [place], Non-Aerosol 1 [place] by Nasal route as needed for Congestion [...] Myalgia Ezetimibe Myalgia Rosuvastatin Myalgia Simvastatin Myalgia Vamzkmk-Jhv-Mpm Reductase Inhibitors Other (See Comments) Joint pain [...] left heel, stage 4 (HCC) - [facility] - [place] DEBRIDEMENT MUSCLE &/FASCIA 1ST 20 SQ CM/< [...] 4x4, roll gauze, every other day. 03/26 [facility] [employer] has been contacted to obtain your wound [...] to reach out to our community service director, Hanna Riggs at [phone] for any discussion. WHO TO CALL FOR PROBLEMS: Please call the OP wound care center with any problems or issues you may have after your visit or though the week. Each patient is assigned a pillowcase cleaner who can assist with issues you may be having. Individual office numbers are listed below. Press 1 for immediate or schedule needs, press 2 for the nursing line. The nurse line is for non-emergent needs and will be answered within 24 hours duringbusiness days. If you have a more immediate concern, press option #1. Office numbers: [phone] [place] ClaudioSrgizf-[phone] [place]- [phone] Our offices do not have an on-call provider. If you have emergent needs after hours please contact your primary care provider. You may also utilize the [facility] Nurse NOW Helpline: 0-979-7TBY-NOW for after-hours needs to get in contact with a nurse for assistance. documented in this encounter Plan of Treatment Upcoming Encounters Date Type Department Care Team (Late st Contact Info) Description 05/14/2025 3:15 PM EDT Appointment [facility] W[facility] [place] [place] [address] Cristi Pelletier, ROGER [address] [phone] 11/12/2025 1:30 PM EST Appointment [facility] [address] [place] [address] [place] [phone] January, Nette Rand APRN [address] [facility] [place] [address] 11/12/2025 2:40 PM EST Office Visit [facility] [address] [place] [address] JanuaryNette APRN [address] [facility] [place] [address] Scheduled Orders Name Type Priority Associated Diagnoses Orde r Schedule [place] DEBRIDEMENT MUSCLE &/FASCIA 1ST 20 SQ CM/< [place] Charge Routine Pressure ulcer of left heel, [...] 03/26/2025 documented in this encounter Care Teams Vp Production Relationship Specialty Start Date End Date William Hunter MD [address] [place] [phone] PCP - General Internal Medicine-Adolescent Medicine 05/28/23 González Gotti MD [address] [place] [address] DR MARTINEZ MD [id number] Consulting Physician Internal Medicine - Clinical Cardiac Electrophysiology 04/05/17 Cristi Cleaning MD [address] [place] [address] DR MARTINEZ MD [id number] Physician Internal Medicine-Cardiovascular Disease 04/05/17 documented as of this encounter
--- OUTSIDE RECORDS SUMMARY | 2025-03-27 08:00 | XMS_ITS | Encounter Summary ---
Author Organization [place] [address] Care Team Providers Care Glass Bulb Machine Adjuster Name Role Phone González Gotti MD Unavailable [phone] Cristi Cleaning MD Unavailable [phone] William Hunter MD Primary Care Provider [phone] Reason for Referral * Vascular Imaging (Routine) - Pending Review Specialty Diagnoses / Procedures Referred By Brian villavicencio Referred To Contact Radiology Diagnoses PAD (peripheral artery disease) Small vessel disease Procedures [employer] LOWER EXTREMITY ARTERIAL DUPLEX COMPLETE Vishnu Penn MD [address] [place] [address] [address] [place] [address] Phone: tel: fax: Referral ID Status Reason Start Date Expiration Date V isits Requested Visits Authorized [id number] Pending Review 03/27/2025 03/27/2026 1 1 Reason for Visit * Reason Comments Peripheral Arterial Disease (PAD) * Surgical (Routine) - Pending Review Specialty Diagnoses / Procedures Referred By Brian villavicencio Referred To Contact Surgery-Vascular Surgery / Vascular Surgery Diagnoses 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) Procedures VA OFFICE/OUTPATIENT NEW MODERATE MDM 45 MINUTES Kirt Dolan DPM [address] [facility] [address] [place] [address] Phone: tel: fax: Vishnu Penn MD [address] [place] [address] [address] [place] [address] Phone: tel: fax: Referral ID Status Reason Start Date Expiration Date Visits Requested Visits Authorized [id number] Pending Review Specialty Services Required 02/26/2025 02/26/2026 1 1 Encounter Details Date Type Department Care Team (Phani st Contact Info) Description 03/27/2025 8:00 AM EDT Office Visit [facility] [address] [place] [address] Vishnu Penn MD [address] [facility] [address] [place], [place] [id number] PAD (peripheral artery disease) (Primary Dx); Former [...] Recorded In the past 12 months has [employer] electric, gas, oil, or water company threatened to shut off services in your home? No 12/28/2024 Overall Financial Resource Strain (CARDIA) Answe r Date Recorded How hard is it for you to pa y for the very basics like food, housing, medical care, and heating? Not hard at all 12/28/2024 PHQ-2 Answer Date Recorded PHQ-2 Total Score 0 12/28/2024 [facility] [place] [facility] Occupat ional [facility] - Occupational Stress [...] things needed for daily living? No 05/29/2023 [facility] IP Transportation Answer D ate Recorded [...] Everywhere. * Peripheral artery disease and claudication (Maltese) documented in this encounter Progress Notes * [...] failure (HCC) COPD (chronic obstructive pulmonary disease) ([facility]) Depression with anxiety Emphysema, unspecified ([facility]) Essential hypertension Headache Heartburn History of cardiac cath 03/23/2017 Stent placed in Right leg 03/23/2017 HLD (hyperlipidemia) Hypertension IL (myocardial infarction) ([facility]) 06/2016 Pacemaker Post-operative nausea and vomiting Sinus node dysfunction ([facility]) 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 Cleaning STEMI (ST elevation myocardial infarction) ([facility]) STEMI with 3 NORI to RCA Systolic heart failure ([facility]) 02/2017 ECHO, EF 25% Patient Active Problem List Diagnosis Date Noted Small vessel disease 03/27/2025 Claudication of right lower extremity 02/26/2025 Pressure ulcer of left heel, stage 4 ([facility]) 01/09/2025 Critical limb ischemia of both lower extremities (HCC) 12/28/2024 DVT, lower extremity, distal, acute, left ([facility]) 12/27/2024 Former smoker-quit 202112/08/2024 Abnormal ankle brachial [...] situ 12/07/2023 Insomnia 12/07/2023 Kidney stone 12/07/2023 senior living current use of anticoagulant therapy 12/07/2023 Neuropathy 12/07/2023 Non-pressure chronic ulcer of skin of other sites with unspecified severity ([facility]) 12/07/2023 Palpitations 12/07/2023 Atrial fibrillation with rapid ventricular response ([facility]) 12/07/2023 Seasonal allergic rhinitis 12/07/2023 Sinusitis 12/07/2023 Stented coronary artery 12/07/2023 Typical angina 12/07/2023 Ventricular fibrillation ([facility]) 12/07/2023 Ventricular fibrillation seen on registered nurse cardiac telemetry ([facility]) 12/07/2023 Ventricular tachyarrhythmia ([facility]) 12/07/2023 Failed flap 06/28/2023 Skin flap necrosis ([facility]) 06/28/2023 Atherosclerosis of artery of extremity with ulceration ([facility]) 06/02/2023 PAD (peripheral artery disease) 06/01/2023 S/P foot surgery 06/01/2023 Cellulitis of left lower extremity 05/28/2023 Open wound of left foot 04/26/2023 Hammertoe of left foot 06/08/2022 Pain in left foot 06/08/2022 Gangrene of left foot ([facility]) 06/08/2022 Vaping nicotine dependence, non-tobacco product 03/05/2022 COPD (chronic obstructive pulmonary disease) ([facility]) HLD (hyperlipidemia) Hypertension Emphysema, unspecified CAD (coronary artery disease) Cardiac pacemaker History of cardiac cath Depression with anxiety Essential hypertension Chronic systolic heart failure ([facility]) Sinus node dysfunction ([facility]) Bradycardia Past Surgical History: Procedure Laterality Date CARDIAC CATHETERIZATION Right 03/23/2017 stent placed in right leg CARDIAC PACEMAKER PLACEMENT 11/05/2016 SJM Dual PPM COLONOSCOPY CORONARY ANGIOPLASTY WITH STENT PLACEMENT 06/2016 x3 DEBRIDEMENT Left 05/19/2023 .; Surgeon: Jabari Hill DPM; Location: [facility]IN OR; Service: Orthopedics FEMUR FRACTURE SURGERY Right right femur fx repair FOOT SURGERY FOOT SURGERY Left 12/23/2022 Left foot heel and second and third toe debridement with application of skin graft substitute. ; Surgeon: Jabari Hill DPM; Location: [facility] OR; Service: Orthopedics FOOT SURGERY Left 02/10/2023 Surgeon: Jabari Hill DPM; Location: [facility] OR; Service: Orthopedics FOOT SURGERY Left 06/06/2023 left FOOT TRANSMETATARSAL amputation; Surgeon: Jabari Hill DPM; Location: [facility]; Service: Podiatry HAMMER TOE SURGERY Left 06/15/2022 Left foot Correction of hammer toe deformity with arthroplasty second and third toe. Left foot Application of skin graft substitute.; Surgeon: Jabari Hill DPM; Location: [facility] OR; Service: Podiatry HIP SURGERY [...] IR REVAS FEM POP ART UNILAT W YOGA TEACHER 03/13/2022 IR REVAS FEM POP ART UNILAT W YOGA TEACHER 03/13/2022 Kashif Wong MD [facility] IR REVAS FEM POP ART UNILAT W YOGA TEACHER 06/02/2023 IR REVAS FEM POP ART UNILAT W YOGA TEACHER 06/02/2023 Vishnu Penn MD [facility] IR IR REVAS FEM POP ART UNILAT W YOGA TEACHER 12/28/2024 IR REVAS FEM POP ART UNILAT W YOGA TEACHER 12/28/2024 Vishnu Penn MD [facility] IR IR [...] Jabari Hill DPM; Location: [facility]; Service: Orthopedics SKIN GRAFT Left 06/15/2022 Surgeon: Jabari Hill DPM; Location: [facility]; Service: Podiatry SKIN GRAFT Left 12/23/2022 . ; Surgeon: Jabari Hill DPM; Location: [facility]; Service: Orthopedics SKIN GRAFT 02/10/2023 Surgeon: Jabari Hill DPM; Location: [facility]; Service: Orthopedics TOE AMPUTATION Left 02/10/2023 Left foot second toe amputation, Left foot excisional debridement with application of skin graft substitute; Surgeon: Jabari Hill DPM; Location: [facility]; Service: Orthopedics TOE AMPUTATION Left 05/19/2023 Left foot, amputation of third toe. Left foot, wound debridment application. Left foot, skin graft substitute. Left foot wound debridment closure.; Surgeon: Jabari Hill DPM; Location: [facility]; Service: Orthopedics Family History [...] DAILY fluticasone propionate (FLONASE) 50 mcg/actuation Nasl [place], Suspension 1 spay each nostril twice daily [...] HOURS PRN oxymetazoline (AFRIN) 0.05 % Nasl [place], Non-Aerosol 1 [place], Nasal, PRN pantoprazole (PROTONIX) 40 mg, DAILY Ranolazine 1,000 mg Oral Tablet Sustained Release 12 hr 1 Tablet, 2 TIMES DAILY Repatha SureClick 140 mg, EVERY 14 DAYS rOPINIRole (REQUIP) 1 mg, NIGHTLY VITAMIN B COMPLEX ORAL 1 Tablet, DAILY Allergies Allergen Reactions Atorvastatin Myalgia Ezetimibe Myalgia Rosuvastatin Myalgia Simvastatin Myalgia Holffjp-Gtl-Lwm Reductase Inhibitors Other (See Comments) Joint pain [...] * Right: * RODOLFO: 0.63 (DPA, distal YOGA TEACHER occluded) / TBI: 0, absent waveform. There is an occlusion of the distal posterior tibial artery. Dampened, biphasic flow of the proximal and mid posterior tibial artery. Mild to moderate plaque noted in the arteries of the right lower extremity. * Left: * RODOLFO: 1.29 (YOGA TEACHER) / TBI: 0, metatarsal amputation. 20-49 % [...] proximal SFA, 138 cm/s. Patency of the GIS SPECIALIST, profunda, SFA, popliteal artery, YOGA TEACHER, SHAMIR, and the DPA. The YOGA TEACHER, SHAMIR, and the DPA are all dampenedwith biphasic Doppler waveforms. Mild to moderate plaque noted throughout the arteries of the rightlower extremity. * Left: * 20-49 % stenosis of the profunda, 182 cm/s. Patency of the GIS SPECIALIST, profunda, SFA, popliteal artery, YOGA TEACHER, SHAMIR, and the DPA. The YOGA TEACHER, SHAMIR, and the DPA are all dampened with biphasic Doppler waveforms. Mild to moderate plaque noted throughout the arteries of the left lower extremity. Assessment and Plan: Ashley was seen today for peripheral arterial disease (pad). Diagnoses and all orders for this visit: PAD (peripheral artery disease) - [employer] LOWER EXTREMITY ARTERIAL DUPLEX COMPLETE; Future Former smoker-quit 2021 Small vessel disease - [employer] LOWER EXTREMITY ARTERIAL DUPLEX COMPLETE; Future Ms. [...] is currently on aspirin and Plavix. Her jack prizer, Dr. Cleaning, is considering discontinuing her aspirin [...] A letter will be sent to her jack prizer, Dr. Cleaning, to emphasize the importance of continuing aspirin therapy. Follow-up The patient will follow up in 6 months with an ultrasound. With CITLALLI The provider educated the patient (or legal payroll representative) on the use of the ambient listening artificial intelligence tool, [employer]. They were informed that this AI tool [...] of such information, the patient (or legal payroll representative), and each individual in attendance with the patient, verbally consented to the use of the AI tool. I have reviewed this note and it accurately reflects my work and decisions made during this visit. Signed: Vishnu Penn MD This note was completed using voice recognition technology. Despite the tag writer's best efforts to proof read, it [...] would rather you call the office at [phone] and speak with our management team so we may know how to improve. documented in this encounter Plan of Treatment Upcoming Encounters Date Type Department Care Team (Late st Contact Info) Description 05/14/2025 3:15 PM EDT Appointment [facility] [place] [address] [place] [address] Cristi Pelletier, DPJeremi [address] [facility] [address] [place] [address] 11/12/2025 1:30 PM EST Appointment [facility] [address] [place] [address] [address] [place] [address] Nette Jalloh APRN [address] [place] [address] [address] [place] [address] 11/12/2025 2:40 PM EST Office Visit [facility] [address] [place] [address] Nette Jalloh, CERTIFIED BREASTFEEDING EDUCATOR [address] [place] [address] Scheduled Orders Name Type Priority Associated Diagnoses Order Schedule [employer] LOWER EXTREMITY ARTERIAL DUPLEX COMPLETE Imaging Cardiology [...] unspecified documented in this encounter Care Teams Glass Bulb Machine Adjuster Relationship Specialty Start Date End Date William Hunter MD [address] [place] [address] [place] [id number] PCP - General Internal Medicine-Adolescent Medicine 05/28/23 González Gotti MD [address] [place] [address] [address] [place], [place] [id number] Consulting Physician Internal Medicine - Clinical Cardiac Electrophysiology 04/05/17 Cristi Cleaning MD [address] [place] [address] [address] [place], [place] [id number] Physician Internal Medicine-Cardiovascular Disease 04/05/17 documented as of this encounter
--- OUTSIDE RECORDS SUMMARY | 2025-04-16 14:30 | XMS_ITS | Encounter Summary ---
Author Organization [place] [address] Care Team Providers Care Margin Trimmer Name Role Phone González Gotti MD Unavailable [phone] Cristi Cleaning MD Unavailable [phone] William Hunter MD Primary Care Provider [phone] Reason for Referral * (Routine) - Pending Review Specialty Diagnoses / Procedures Referred By Brian villavicencio Referred To Contact Diagnoses 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) Pressure ulcer of left heel, stage 4 (HCC) Procedures AMB [facility] PRIMARY DRESSING Cristi Pelletier DPM [address] [place] [id number] Phone: tel: fax: Referral ID Status Reason Start Date Expiration Date V isits Requested Visits Authorized [id number] Pending Review 04/17/2025 04/17/2026 1 1 * In Office Procedure (Routine) - Pending Review Specialty Diagnoses / Procedures Referred By Brian villavicencio Referred To Contact Diagnoses 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) Pressure ulcer of left heel, stage 4 (HCC) Procedures NM DEBRIDEMENT SUBCUTANEOUS TISSUE 1ST 20 SQ CM/< Cristi Pelletier DPM [address] [address] Phone: tel: fax: Referral ID Status Reason Start Date Expiration Date V isits Requested Visits Authorized [id number] Pending Review 04/16/2025 04/16/2026 1 1 Reason for Visit * Reason Comments Wound Check * Consultation (Routine) - Authorization Not Needed Specialty Diagnoses / Procedures Referred By Contac t Referred To Contact Wound Care Diagnoses Wound Care Procedures NM DEBRIDEMENT SUBCUTANEOUS TISSUE 1ST 20 SQ CM/< NM DEBRIDEMENT MUSCLE &/FASCIA 1ST 20 SQ CM/< NM DEBRIDEMENT BONE 1ST 20 SQ CM/< NM DEBRIDEMENT SUBCUTANEOUS TISSUE EA ADDL 20 SQ CM NM DEBRIDEMENT MUSCLE &/FASCIA EA ADDL 20 SQ CM NM DEBRIDEMENT BONE EACH ADDITIONAL 20 SQ CM NM DEBRIDEMENT OPEN WOUND FIRST 20 SQ CM/< NM DEBRIDEMENT OPN WND EA ADDL 20 SQ CM/PRT THEREOF [facility] [place] [address] [place] [address] Phone: tel: fax: Referral ID Status Reason Start Date Expiration Date Visits Requested Visits Authorized [id number] Authorization Not Needed Specialty Services Required 5 01/08/2026 99 99 Encounter Details Date Type Department Care Team (Latest Contact Info) Description 04/16/2025 2:30 PM EDT - 04/16/2025 11:59 PM EDT Hospital Encounter [facility] W[facility] [place] [address] [place] [address] Cristi Pelletier DPM [address] [address] Atherosclerosis of artery of [...] drink = 0.6 oz pur e alcohol) [facility] Utilities Answer Date Recorded In the [...] Date Recorded PHQ-2 Total Score 0 12/28/2024 [facility] - [facility] [...] things needed for daily living? No 05/29/2023 [facility] IP Transportation Answer [...] days. fluticasone propionate (FLONASE) 50 mcg/actuation Nasl [place], Suspension 1 spay each nostril twice daily [...] Chest pain. oxymetazoline (AFRIN) 0.05 % Nasl [place], Non-Aerosol 1 [place] by Nasal route as needed for Congestion [...] Bradycardia CAD (coronary artery disease) Cardiac pacemaker [facility] Dual PPM 11/05/2016 - Dr. Cleaning Chronic systolic heart failure ([facility]) COPD (chronic obstructive pulmonary disease) ([facility]) Depression with anxiety Emphysema, unspecified ([facility]) Essential hypertension Headache Heartburn History of cardiac cath 03/23/2017 Stent placed in Right leg 03/23/2017 HLD (hyperlipidemia) Hypertension [place] (myocardial infarction) ([facility]) 06/2016 Pacemaker Post-operative nausea and vomiting Sinus node dysfunction ([facility]) PJ Dual PPM 11/05/2016 - Dr. Cleaning STEMI (ST elevation myocardial infarction) ([facility]) STEMI with 3 NORI to RCA Systolic heart failure ([facility]) 02/2017 ECHO, EF 25% Past Surgical History: Procedure Laterality Date CARDIAC CATHETERIZATION Right 03/23/2017 stent placed in right leg CARDIAC PACEMAKER PLACEMENT 11/05/2016 SJ Dual PPM COLONOSCOPY CORONARY ANGIOPLASTY WITH STENT PLACEMENT 06/2016 x3 DEBRIDEMENT Left 05/19/2023 .; Surgeon: Jabari Hill DPM; Location: [facility] MAIN OR; Service: Orthopedics FEMUR FRACTURE SURGERY Right right femur fx repair FOOT SURGERY FOOT SURGERY Left 12/23/2022 Left foot heel and second and third toe debridement with application of skin graft substitute. ; Surgeon: Jabari Hill DPM; Location: [facility] OR; Service: Orthopedics FOOT SURGERY Left 02/10/2023 Surgeon: Jabari Hill DPM; Location: [facility] OR; Service: Orthopedics FOOT SURGERY Left 06/06/2023 left FOOT TRANSMETATARSAL amputation; Surgeon: Jabari Hill DPM; Location: [facility] MAIN OR; Service: Podiatry HAMMER TOE SURGERY Left 06/15/2022 Left foot Correction of hammer toe deformity with arthroplasty second and third toe. Left foot Application of skin graft substitute.; Surgeon: Jabari Hill DPM; Location: [facility] OR; Service: Podiatry HIP SURGERY IR [...] IR REVAS FEM POP ART UNILAT W EXTENSION SUPERVISOR 03/13/2022 IR REVAS FEM POP ART UNILAT W EXTENSION SUPERVISOR 03/13/2022 Kashif Wong MD EDG IR IR REVAS FEM POP ART UNILAT W EXTENSION SUPERVISOR 06/02/2023 IR REVAS FEM POP ART UNILAT W EXTENSION SUPERVISOR 06/02/2023 Vishnu Penn MD EDG IR IR REVAS FEM POP ART UNILAT W EXTENSION SUPERVISOR 12/28/2024 IR REVAS FEM POP ART UNILAT W EXTENSION SUPERVISOR 12/28/2024 Vishnu Pnen MD EDG IR IR TRANS ART OR [...] 05/19/2023 .; Surgeon: Jabari Hill DPM; Location: [facility]; Service: Orthopedics SKIN GRAFT Left 06/15/2022 Surgeon: Jabari Hill DPM; Location: [facility]; Service: Podiatry SKIN GRAFT Left 12/23/2022 . ; Surgeon: Jabari Hill DPM; Location: [facility]; Service: Orthopedics SKIN GRAFT 02/10/2023 Surgeon: Jabari Hill DPM; Location: [facility]; Service: Orthopedics TOE AMPUTATION Left 02/10/2023 Left foot second toe amputation, Left foot excisional debridement with application of skin graft substitute; Surgeon: Jabari Hill DPM; Location: [facility]; Service: Orthopedics TOE AMPUTATION Left 05/19/2023 Left foot, amputation of third toe. Left foot, wound debridment application. Left foot, skin graft substitute. Left foot wound debridment closure.; Surgeon: Jabari Hill DPM; Location: [facility]; Service: Orthopedics Current Outpatient Medications [...] days. fluticasone propionate (FLONASE) 50 mcg/actuation Nasl [place], Suspension 1 spay each nostril twice daily [...] Tablet 0 oxymetazoline (AFRIN) 0.05 % Nasl [place], Non-Aerosol 1 [place] by Nasal route as needed for Congestion [...] Myalgia Ezetimibe Myalgia Rosuvastatin Myalgia Simvastatin Myalgia Iisagtr-Ehb-Vqr Reductase Inhibitors Other (See Comments) Joint pain [...] artery of extremity with ulceration (HCC) - NM DEBRIDEMENT SUBCUTANEOUS TISSUE 1ST 20 SQ CM/< - [facility]B [facility] PRIMARY DRESSING Pressure ulcer of left heel, stage 4 (HCC) - NM DEBRIDEMENT SUBCUTANEOUS TISSUE 1ST 20 SQ CM/< [...] 4x4, roll gauze, every other day. 03/26 [facility] has been contacted to obtain your wound [...] feel free to reach out to our health unit supervisor, Hanna Riggs at [phone] for any discussion. WHO TO CALL FOR PROBLEMS: Please call the OP wound care center with any problems or issues you may have after your visit or though the week. Each patient is assigned a complex case manager who can assist with issues you may be having. Individual office numbers are listed below. Press 1 for immediate or schedule needs, press 2 for the nursing line. The nurse line is for non-emergent needs and will be answered within 24 hours duringbusiness days. If you have a more immediate concern, press option #1. Office numbers: [phone] [place] ClaudioZzgyyw-[phone] [place]- [phone] Our offices do not have an on-call provider. If you have emergent needs after hours please contact your primary care provider. You may also utilize the [facility] Nurse NOW Helpline: 0-178-8CAB-NOW for after-hours needs to get in contact with a nurse for assistance. documented in this encounter Plan of Treatment Upcoming Encounters Date Type Department Care Team (Late st Contact Info) Description 05/14/2025 3:15 PM EDT Appointment [facility] Wound Care Center [place] [address] [place] [address] Cristi Pelletier, DPM [address] [facility] [address] [place] [address] 11/12/2025 1:30 PM EST Appointment [facility] [address] [place] [address] Drive [address] [place] [address] Nette Jalloh APRN [address] [place] [address] [address] [place] [address] 11/12/2025 2:40 PM EST Office Visit [facility] [address] [place] [address] MayNette APRN [address] [place] [address] [place] [address] Scheduled Orders Name Type Priority Associated Diagnoses Orde r Schedule NM DEBRIDEMENT SUBCUTANEOUS TISSUE 1ST 20 SQ CM/< NM Charge Routine Atherosclerosis of artery of extremity [...] 04/17/2025 documented in this encounter Care Teams Margin Trimmer Relationship Specialty Start Date End Date William Hunter MD [address] [place] [address] PCP - General Internal Medicine-Adolescent Medicine 05/28/23 González Gotti MD [address] [place] [address] Consulting Physician Internal Medicine - Clinical Cardiac Electrophysiology 04/05/17 Cristi Cleaning MD [address] [place] [address] Physician Internal Medicine-Cardiovascular Disease 04/05/17 documented as of this encounter
--- OUTSIDE RECORDS SUMMARY | 2025-04-23 14:30 | XMS_ITS | Encounter Summary ---
Author Organization [place] [address] Care Team Providers Care Dry Starch Operator Name Role Phone González Gotti MD Unavailable [phone] Cristi Cleaning MD Unavailable [phone] William Hunter MD Primary Care Provider [phone] Reason for Referral * In Office Procedure (Routine) - Pending Review Specialty Diagnoses / Procedures Referred By Contac t Referred To Contact Diagnoses Pressure ulcer of left heel, stage 4 (HCC) Procedures CT DEBRIDEMENT SUBCUTANEOUS TISSUE 1ST 20 SQ CM/< Jabari Corado Jr., MD [address] [place] [address] [address] [place] [address] Phone: tel: fax: Referral ID Status Reason Start Date Expiration Date V isits Requested Visits Authorized [id number] Pending Review 04/23/2025 04/23/2026 1 1 * (Routine) - Pending Review Specialty Diagnoses / Procedures Referred By Contac t Referred To Contact Diagnoses Pressure ulcer of left heel, stage 4 (HCC) 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) Procedures AMB [facility] PRIMARY DRESSING Jabari Corado Jr., MD [address] [place] [address] [address] [place] [address] Phone: tel: fax: Referral ID Status Reason Start Date Expiration Date V isits Requested Visits Authorized [id number] Pending Review 04/23/2025 04/23/2026 1 1 Reason for Visit * Reason [...] WND EA ADDL 20 SQ CM/PRT THEREOF [facility] Wound Care Center [place] [address] [place] [address] Phone: tel: fax: Referral ID Status Reason Start Date Expiration Date Visits Requested Visits Authorized [id number] Authorization Not Needed Specialty Services Required 5 01/08/2026 99 99 Encounter Details Date Type Department Care Team (Latest Contact Info) Description 04/23/2025 2:30 PM EDT - 04/23/2025 11:59 PM EDT Hospital Encounter [facility] Wound Care Center [address] [place] [address] Jabari Corado Jr., MD [address] [place] [address] [address] [place] [address] Pressure ulcer of left heel, stage 4 (HCC) (Primary Dx); 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) Discharge Disposition: Home or Self Care Social History Tobacco Use Types Packs/Day Years Used Date Smoking Tobacco: Former Cigarettes 0.3 40 0 12/26/1981 - 12/26/2021 Passive Smoke Exposure: Past Smokeless Tobacco: Never Alcohol Use Standard Drinks/Week Comments Not Currently 0 (1 standard drink = 0.6 oz pur e alcohol) [facility] Utilities Answer Date Recorded In the past 12 months has e [employer], gas, oil, or water company threatened to shut off services in your home? No 12/28/2024 Overall Financial Resource Strain (CARDIA) Answe r Date Recorded How hard is it for you to pa y for the very basics like food, housing, medical care, and heating? Not hard at all 12/28/2024 PHQ-2 Answer Date Recorded PHQ-2 Total Score 0 12/28/2024 [facility] - Occupational Stress Questionnaire Answer Date [...] things needed for daily living? No 05/29/2023 [facility] IP Transportation Answer D ate [...] Sign Reading Time Taken Comments Blood Pressure 109/72 04/23/2025 2:55 PM EDT Pulse 70 04/23/2025 2:55 PM EDT Temperature 36.3 C (97.4 F) 04/23/2025 2:55 PM EDT Respiratory Rate 16 04/23/2025 2:55 PM EDT Oxygen Saturation - - Inhaled [...] Author No 06/11/2023 2:58 PM EDT Redd Btaes RN documented in this encounter Medications at [...] days. fluticasone propionate (FLONASE) 50 mcg/actuation Nasl [place], Suspension 1 spay each nostril twice daily [...] Chest pain. oxymetazoline (AFRIN) 0.05 % Nasl [place], Non-Aerosol 1 [place] by Nasal route as needed for Congestion [...] documented in this encounter Progress Notes * Jabari Corado Jr., MD - 04/23/2025 2:30 PM EDT Progress Note HPI Ashley Ding is a [...] Chronic systolic heart failure ([facility]) COPD (chronic obstructive pulmonary disease) ([facility]) Depression with anxiety Emphysema, unspecified ([facility]) Essential hypertension Headache Heartburn History of cardiac cath 03/23/2017 Stent placed in Right leg 03/23/2017 HLD (hyperlipidemia) Hypertension [place] (myocardial infarction) ([facility]) 06/2016 Pacemaker Post-operative nausea and vomiting Sinus node dysfunction ([facility]) 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 Cleaning STEMI (ST elevation myocardial infarction) ([facility]) STEMI with 3 NORI to RCA Systolic heart failure ([facility]) 02/2017 ECHO, EF 25% Past Surgical History: Procedure Laterality Date CARDIAC CATHETERIZATION Right 03/23/2017 stent placed in right leg CARDIAC PACEMAKER PLACEMENT 11/05/2016 SJM Dual PPM COLONOSCOPY CORONARY ANGIOPLASTY WITH STENT PLACEMENT 06/2016 x3 DEBRIDEMENT Left 05/19/2023 .; Surgeon: Jabari Hill DPM; Location: [facility] OR; Service: Orthopedics FEMUR FRACTURE SURGERY Right right femur fx repair FOOT SURGERY FOOT SURGERY Left 12/23/2022 Left foot heel and second and third toe debridement with application of skin graft substitute. ; Surgeon: Jabari Hill DPM; Location: [facility] OR; Service: Orthopedics FOOT SURGERY Left 02/10/2023 Surgeon: Jabari Hill DPM; Location: [facility] OR; Service: Orthopedics FOOT SURGERY Left 06/06/2023 left FOOT TRANSMETATARSAL amputation; Surgeon: Jabari Hill DPM; Location: [facility] MAIN OR; Service: Podiatry HAMMER TOE SURGERY Left 06/15/2022 Left foot Correction of hammer toe deformity with arthroplasty second and third toe. Left foot Application of skin graft substitute.; Surgeon: Jabari Hill DPM; Location: [facility] OR; Service: Podiatry HIP SURGERY IR [...] IR REVAS FEM POP ART UNILAT W DEPARTMENT TRAFFIC FREIGHT ROUTER 03/13/2022 IR REVAS FEM POP ART UNILAT W DEPARTMENT TRAFFIC FREIGHT ROUTER 03/13/2022 Kashif Wong MD [facility]G IR IR REVAS FEM POP ART UNILAT W DEPARTMENT TRAFFIC FREIGHT ROUTER 06/02/2023 IR REVAS FEM POP ART UNILAT W DEPARTMENT TRAFFIC FREIGHT ROUTER 06/02/2023 Vishnu Penn MD EDG IR IR REVAS FEM POP ART UNILAT W DEPARTMENT TRAFFIC FREIGHT ROUTER 12/28/2024 IR REVAS FEM POP ART UNILAT W DEPARTMENT TRAFFIC FREIGHT ROUTER 12/28/2024 Vishnu Penn MD EDG IR IR [...] 05/19/2023 .; Surgeon: Jabari Hill DPM; Location: [facility] OR; Service: Orthopedics SKIN GRAFT Left 06/15/2022 Surgeon: Jabari Hill DPM; Location: [facility] OR; Service: Podiatry SKIN GRAFT Left 12/23/2022 . ; Surgeon: Jabari Hill DPM; Location: [facility] OR; Service: Orthopedics SKIN GRAFT 02/10/2023 Surgeon: Jabari Hill DPM; Location: [facility]; Service: Orthopedics TOE AMPUTATION Left 02/10/2023 Left foot second toe amputation, Left foot excisional debridement with application of skin graft substitute; Surgeon: Jabari Hill DPM; Location: [facility] OR; Service: Orthopedics TOE AMPUTATION Left 05/19/2023 Left foot, amputation of third toe. Left foot, wound debridment application. Left foot, skin graft substitute. Left foot wound debridment closure.; Surgeon: Jabari Hill DPM; Location: [facility] OR; Service: Orthopedics Current Outpatient Medications [...] days. fluticasone propionate (FLONASE) 50 mcg/actuation Nasl [place], Suspension 1 spay each nostril twice daily [...] Chest pain. oxymetazoline (AFRIN) 0.05 % Nasl [place], Non-Aerosol 1 [place] by Nasal route as needed for Congestion [...] Myalgia Ezetimibe Myalgia Rosuvastatin Myalgia Simvastatin Myalgia Syrxena-Zyq-Uwx Reductase Inhibitors Other (See Comments) Joint pain Codeine Itching nausea Hydrocodone Itching nausea Phenergan [Promethazine] Other (See Comments) Made legs restless And also very sleepy ROS See HPI for further details. Relevant review of systems otherwise negative. Physical Exam Vitals: 04/23/25 1455 BP: 109/72 Pulse: 70 Resp: 16 Temp: 97.4 ??F (36.3 ??C) TempSrc: Forehead Ulcer Progress and Procedure [...] left heel, stage 4 (HCC) - AMB [facility] PRIMARY DRESSING 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) - AMB [facility] PRIMARY DRESSING Other orders - lidocaine (XYLOCAINE) [...] Patient Instructions - Balbina Tong RN - 04/23/2025 2:30 PM EDT HOME-CARE INSTRUCTIONS FOLLOWING YOUR [...] 4x4, roll gauze, every other day. 03/26 [facility] has been contacted to obtain [...] feel free to reach out to our spray unit feeder, Hanna Riggs at [phone] for any discussion. WHO TO CALL FOR PROBLEMS: Please call the OP wound care center with any problems or issues you may have after your visit or though the week. Each patient is assigned a case packer and sealer who can assist with issues you may be having. Individual office numbers are listed below. Press 1 for immediate or schedule needs, press 2 for the nursing line. The nurse line is for non-emergent needs and will be answered within 24 hours duringbusiness days. If you have a more immediate concern, press option #1. Office numbers: [phone] [place]audioGpsdal-[phone] [place]- [phone] Our offices do not have an on-call provider. If you have emergent needs after hours please contact your primary care provider. You may also utilize the [facility] Nurse NOW Helpline: [phone]-NOW for after-hours needs to get in contact with a nurse for assistance. 03/26 [facility] has been contacted to obtain your wound [...] feel free to reach out to our spray unit feeder, Hanna Riggs at [phone] for any discussion. WHO TO CALL FOR PROBLEMS: Please call the OP wound care center with any problems or issues you may have after your visit or though the week. Each patient is assigned a case packer and sealer who can assist with issues you may be having. Individual office numbers are listed below. Press 1 for immediate or schedule needs, press 2 for the nursing line. The nurse line is for non-emergent needs and will be answered within 24 hours duringbusiness days. If you have a more immediate concern, press option #1. Office numbers: [phone] [place]t. ClaudioQuekpr-[phone] [place]- [phone] Our offices do not have an on-call provider. If you have emergent needs after hours please contact your primary care provider. You may also utilize the [facility] Nurse NOW Helpline: [phone]-NOW for after-hours needs to get in contact with a nurse for assistance. * Addendum Note - Balbina Tong RN - 04/23/2025 2:30 PM EDTEncounter addended by: Balbina Tong RN on: 04/24/2025 2:13 PM Actions taken: Flowsheet accepted, Charge Capture section accepted * Addendum Note - Balbina Tong RN - 04/23/2025 2:30 PM EDTEncounter addended by: Balbina Tong RN on: 04/24/2025 2:44 PM Actions taken: Flowsheet accepted documented in this encounter Plan of Treatment Upcoming Encounters Date Type Department Care Team (Late st Contact Info) Description 05/14/2025 3:[address] [facility] Wound Care [facility] [place] [address] [place] [address] Cristi Pelletier, DPM [address] [address] 11/12/2025 1:30 PM EST Appointment [facility] [address] [place] [address] [address] [place] [address] January, Nette Rand [address] [address] 11/12/2025 2:40 PM EST Office Visit [facility] [address] [place] [address] [address] [place] [address] [address] [address] [address] Scheduled Orders Name Type Priority Associated Diagnoses Orde r Schedule CT DEBRIDEMENT SUBCUTANEOUS TISSUE 1ST 20 SQ CM/< CT Charge Routine Pressure ulcer of left heel, stage 4 (HCC) Ordered: 04/23/2025 documented as of this encounter Goals Goal [...] of left heel, stage 4 (HCC)- Primary 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) documented in this encounter Administered Medications Inactive Administered Medications - up to 1 most recent administrations Medication Order MAR Action Action Date Dose Rate Site lidocaine (XYLOCAINE) 5 % ointment Topical, ONCE, 1 dose, On Wed04/23/25 at 1500, Application site: heel Given 04/23/2025 2:58 PM EDT documented in this encounter Orders Medications Ordered That Daniel ht Not Have Been Administered Count Last Ordered Date First Ordered Date lidocaine (XYLOCAINE) 5 % ointment 1 2024 Nursing Count Last Ordered Date First Orde red Date AMB [facility] PRIMARY DRESSING 1 04/23/2025 documented in this encounter Care Teams Dry Starch Operator Relationship Specialty Start Date End Date William Hunter MD [facility] [place] [id number] PCP - General Internal Medicine-Adolescent Medicine 05/28/23 González Gotti MD [address] [place] [address] [place] [address] Consulting Physician Internal Medicine - Clinical Cardiac Electrophysiology 04/05/17 Cristi Cleaning MD [address] [place] [address] [place] [address] Physician Internal Medicine-Cardiovascular Disease 04/05/17 documented as of this encounter
--- OUTSIDE RECORDS SUMMARY | 2025-05-07 13:45 | XMS_ITS | Encounter Summary ---
Author Organization [place] [address] Care Team Providers Care Dubbing Machine Operator Name Role Phone González Gotti MD Unavailable [phone] Cristi Cleaning MD Unavailable [phone] William Hunter MD Primary Care Provider [phone] Reason for Referral * (Routine) - Pending Review Specialty Diagnoses / Procedures Referred By Contac t Referred To Contact Diagnoses Pressure ulcer of left heel, stage 4 (HCC) Procedures [facility] PRIMARY [facility] Cristi Pelletier DPM [address] [address] Phone: tel: fax: Referral ID Status Reason Start Date Expiration Date V isits Requested Visits Authorized [id number] Pending Review 05/07/2025 05/07/2026 1 1 Reason for Visit * Consultation (Routine) - Authorization Not Needed Specialty Diagnoses / Procedures Referred By Contac t Referred To Contact Wound Care Diagnoses Wound Care Procedures MD DEBRIDEMENT SUBCUTANEOUS TISSUE 1ST 20 SQ CM/< MD DEBRIDEMENT MUSCLE &/FASCIA 1ST 20 SQ CM/< MD DEBRIDEMENT BONE 1ST 20 SQ CM/< MD DEBRIDEMENT SUBCUTANEOUS TISSUE EA ADDL 20 SQ CM MD DEBRIDEMENT MUSCLE &/FASCIA EA ADDL 20 SQ CM MD DEBRIDEMENT BONE EACH ADDITIONAL 20 SQ CM MD DEBRIDEMENT OPEN WOUND FIRST 20 SQ CM/< MD DEBRIDEMENT OPN WND EA ADDL 20 SQ CM/PRT THEREOF [facility] [address] [place] [address] Phone: tel: fax: Referral ID Status Reason Start Date Expiration Date Visits Requested Visits Authorized [id number] Authorization Not Needed Specialty Services Required 5 01/08/2026 99 99 Encounter Details Date Type Department Care Team (Latest Contact Info) Description 05/07/2025 1:45 PM EDT - 05/07/2025 11:59 PM EDT Hospital Encounter [facility] [address] [place] [address] Cristi Pellteier, DPM [address] [address] Pressure ulcer of left heel, stage 4 (HCC) (Primary Dx) Discharge Disposition: Home or Self Care Social History Tobacco Use Types Packs/Day Years Used Date Smoking Tobacco: Former Cigarettes 0.3 40 0 12/26/1981 - 12/26/2021 Passive Smoke Exposure: Past Smokeless Tobacco: Never Alcohol Use Standard Drinks/Week Comments Not Currently 0 (1 standard drink = 0.6 oz pur e alcohol) [facility] Utilities Answer Date Recorded In [...] Date Recorded PHQ-2 Total Score 0 12/28/2024 [facility] of Occupat ional Health - Occupational Stress [...] things needed for daily living? No 05/29/2023 [facility] IP Transportation Answer D ate Recorded [...] Assessment Author No 06/11/2023 2:58 PM EDT Paulo, C ourtney, RN * Does this person have difficulty dressing or bathing? Answer Date of Assessment Author No 06/11/2023 2:58 PM Redd Mcneill RN * Because of a physical, mental [...] days. fluticasone propionate (FLONASE) 50 mcg/actuation Nasl [place], Suspension 1 spay each nostril twice daily [...] Chest pain. oxymetazoline (AFRIN) 0.05 % Nasl [place], Non-Aerosol 1 [place] by Nasal route as needed for Congestion [...] or Self Care documented in this encounter Miscellaneous Notes * [...] 4x4, roll gauze, every other day. 03/26 [facility] [employer] has been contacted to obtain your wound [...] feel free to reach out to our loading unit operator powder charging, Hanna Riggs at [phone] for any discussion. WHO TO CALL FOR PROBLEMS: Please call the OP wound care center with any problems or issues you may have after your visit or though the week. Each patient is assigned a manager case management who can assist with issues you may be having. Individual office numbers are listed below. Press 1 for immediate or schedule needs, press 2 for the nursing line. The nurse line is for non-emergent needs and will be answered within 24 hours duringbusiness days. If you have a more immediate concern, press option #1. Office numbers: [phone] [place] Hsgaxw-[phone] [facility] [phone] Our offices do not have an on-call provider. If you have emergent needs after hours please contact your primary care provider. You may also utilize the [facility] Nurse NOW Helpline: 6-066-8JMO-NOW for after-hours needs to get in contact with a nurse for assistance. 03/26 [facility] has been contacted to [...] feel free to reach out to our loading unit operator powder charging, Hanna Riggs at [phone] for any discussion. WHO TO CALL FOR PROBLEMS: Please call the OP wound care center with any problems or issues you may have after your visit or though the week. Each patient is assigned a manager case management who can assist with issues you may be having. Individual office numbers are listed below. Press 1 for immediate or schedule needs, press 2 for the nursing line. The nurse line is for non-emergent needs and will be answered within 24 hours duringbusiness days. If you have a more immediate concern, press option #1. Office numbers: Kiexqghye-[phone] [place]-[phone] [place]- [phone] Our offices do not have an on-call provider. If you have emergent needs after hours please contact your primary care provider. You may also utilize the [facility] Nurse NOW Helpline: 0-731-5RPX-NOW for after-hours needs to get in contact with a nurse for assistance. documented in this encounter Plan of Treatment Upcoming Encounters Date Type Department Care Team (Late st Contact Info) Description 05/14/2025 3:15 PM EDT Appointment [facility] Abner Claudio [address] [place] [id number] Cristi Pelletier, DPM [address] [place] [address] 11/12/2025 1:30 PM EST Appointment [facility] [address] [place] [address] [address] [place] [address] May, Nette Rand [address] [place] [address] 11/12/2025 2:40 PM EST Office Visit [facility] [address] [facility] [address] [place] [address]ette [address] [place] [address] documented as of this encounter Goals Goal Patient Goal Type Associated Problems Recent Progress Patient-Stated? Author Wound Healing General On track(2024 3:09 PM EDT) Tsering Doran, ROSANNE Note: Wound [...] 05/07/2025 documented in this encounter Care Teams Dubbing Machine Operator Relationship Specialty Start Date End Date William Hunter MD [address] [place] [address] PCP - General Internal Medicine-Adolescent Medicine 05/28/23 González Gotti MD [address] [place] [address] [place] [id number] Consulting Physician Internal Medicine - Clinical Cardiac Electrophysiology 04/05/17 Cristi Cleaning MD [address] [place] [address] [place] [id number] Physician Internal Medicine-Cardiovascular Disease 04/05/17 documented as of this encounter
--- NOTE | 2025-05-08 | CA_ITS ---
APPROVED REPORT Exam: Pharmacologic Technologist: Marcella Montoya Ht: 5 ft 4 in Wt: 152 lbs BSA: 1.74 m2 HR: 70 bpm BP: 177/104 mmHg Stress Test Details Test: Lexiscan HR Resting HR: 70 bpm Max Heart Rate (APMHR): 161.803142 bpm Max HR Achieved: 70 bpm Target HR (85% APMHR): 136.925151 bpm % of APMHR: 43.48 Recovery HR: 70 bpm BP Resting BP: 177.0/104.0 mmHg Max BP: 190.0/91.0 mmHg Recovery BP: 177.0/98.0 mmHg ECG Resting ECG: Sinus rhythm - paced Stress ECG Conclusion Symptoms: Dyspnea Arrhythmias/Ectopy: - ST-T Changes: Baseline ST abnormalities. Conclusion: EKG unremarkable due to Lexiscan infusion. Baseline ST changes. Electronically signed by : Cecilia Finnegan MD 05/09/2025 13:55:36
--- OUTSIDE RECORDS SUMMARY | 2025-05-08 12:49 | XMS_ITS | Patient Health Record ---
Author Organization [facility] Address [address] [place] [address] Care Team Providers Care Shoeblack Name Role Phone William Hunter Primary Care Provider Sarah Wing Unavailable [phone] Migration, Provider Unavailable Unavailable Allergies Allergen (clinical drug ingredient) Drug/Non Drug Allergy documented on EMR Reaction Allergy Type Onset Date Status Substance with 6-bpjmwzd-9-methylg lutaryl-coenzyme A reductase inhibitor mechanism of action [...] review and pick correct strength-formula tion from [employer] options. If intended option is not shown, [...] Status W/U Status Risk Notes Problem Insomnia (308913078) Insomnia due to medical condition (G47.01) Active confirmed Problem Essential hypertension (82133807) Essential (primary) hypertension (I10) Active confirmed Problem Ventricular tachycardia (49933098) Ventricular tachycardia (I47.2) Active confirmed Problem Paroxysmal atrial fibrillation (375516333) Paroxysmal atrial fibrillation (I48.0) Active confirmed Problem Ventricular fibrillation (22539475) Ventricular fibrillation (I49.01) Active confirmed Problem Stricture of artery (29073476) Stricture of artery (I77.1) Active confirmed Problem Chronic ulcer of skin (95503193) Non-pressure chronic ulcer of skin of other sites with unspecified severity (L98.499) Active confirmed Problem Long-term current use of anticoagulant (658043776) termite helper (current) use of anticoagulants (Z79.01) Active confirmed Problem Mixed anxiety and depressive disorder (160554689) Depression with anxiety (F41.8) Active confirmed Problem Neuropathy (183640134) Neuropathy (G62.9) Active confirmed Problem Essential hypertension (14401187) Essential hypertension (I10) Active confirmed Problem Hyperlipidaemia (07144992) Hyperlipemia (E78.5) Active confirmed Problem Atrial fibrillation (68485330) Atrial fibrillation (I48.91) Active confirmed Problem Gastroesophageal reflux disease without esophagitis (440572021) Gastroesophageal reflux disease without esophagitis (K21.9) Active confirmed Problem Atherosclerotic heart disease of suqu[place] coronary artery without angina pectoris (628925295728680) Coronary artery disease involving suquamish coronary artery of su[place] heart without angina pectoris (I25.10) Active confirmed Problem COPD - Chronic obstructive pulmonary disease (44439236) Chronic obstructive pulmonary disease, unspecified COPD type (J44.9) Active confirmed Problem Chronic systolic heart failure (770122690) Chronic systolic heart failure (I50.22) Active confirmed Problem Chronic bronchiolitis (029449188) Chronic bronchiolitis (J44.9) Active confirmed Problem Peripheral arterial disease (077583163) Peripheral arterial disease (I73.9) Active confirmed Problem Kidney stone (36559119) Kidney stone (N20.0) Active confirmed Problem Generalized anxiety disorder (41477636) TRISH (generalized anxiety disorder) (F41.1) Active confirmed Problem Insomnia (796517313) Insomnia, unspecified type (G47.00) Active confirmed Problem Ventricular tachyarrhythmia (7802358) Ventricular tachyarrhythmia (I47.2) Active confirmed Problem Cardiac pacemaker in situ (745144656) History of pacemaker (Z95.0) Active confirmed Problem Atherosclerosis of coronary artery (313748028) Atherosclerosis of suquamish coronary artery of suqu[place] heart with other form of angina pectoris (I25.118) Active confirmed Problem Automatic implantable cardiac defibrillator in situ (920068858) Presence of automatic implantable cardioverter-defib rillator (Z95.810) Active confirmed Problem Mass of right adrenal gland (finding) (37476879846809582) Adrenal mass, right (E27.9) Active confirmed Problem Seasonal allergic rhinitis (798950572) Seasonal allergic rhinitis, unspecified allergic rhinitis trigger (J30.2) Active confirmed Problem Old myocardial infarction (8721938) History of ST elevation myocardial infarction (STEMI) (I25.2) Active confirmed Problem Automatic implantable cardiac defibrillator in situ (111282590) Presence of combination internal cardiac defibrillator (ICD) and pacemaker (Z95.810) Active confirmed Problem Arteritic leg ulcer (disorder) (913726064) Arterial leg ulcer (L97.909) Active confirmed Problem Chronic obstructive pulmonary disease (94029250) Advanced COPD (J44.9) Active confirmed Problem Betaxolol allergy (909654271) Betaxolol allergy (Z88.8) Active confirmed Problem Hypertensive heart failure (06787376) Unspecified hypertensive heart disease with heart failure (I11.0) Active confirmed Vital Signs Heart Rate 96 /min 02/27/2025 Temperature 97.0 degrees Fahrenheit 02/27/2025 Blood pressure diastolic 88 mm Hg 02/27/2025 Height 64 in 02/27/2025 Blood pressure systolic 136 mm Hg 02/27/2025 Weight 154 lbs 02/27/2025 BMI 26.43 kg/m2 02/27/2025 Encounters Encounter Location Date Provider Diagnosis [facility] [address] [place] [address] 12/30/2024 Provider Migration [facility] [address] [place] [address] 02/27/2025 Sarah Wing Routine medical exam Z00.00 ; Coronary artery disease involving suquamish coronary artery of suqu[place] heart without angina pectoris I25.10 ; Gastroesophageal reflux disease without esophagitis K21.9 ; Chronic systolic heart failure I50.22 ; Peripheral arterial disease I73.9 ; Paroxysmal atrial fibrillation I48.0 ; Hyperlipemia E78.5 ; termite helper (current) use of anticoagulants Z79.01 ; Essential hypertension I10 ; Encounter for screening for malignant neoplasm of colon Z12.11 ; Visit for screening mammogram Z12.31 and BMI 26.0-26.9,adult Z68.[address] [facility] [address] [address] 10/02/2024 William Hunter [address] [place] [address] 01/29/2025 Sarah Wing [facility] [address] [place], [place] [address] 02/27/2025 Sarah Wing [facility] [place] [address] [facility] [address] [place] [address] 03/05/2025 William Hunter [facility] [address] [place], [place] [address] 03/21/2025 Sarah Wing Abnormal mammogram R 92.8 Assessments Encounter Date Diagnosis (ICD Code) Assessment Notes Treatment Notes Treatment Clinical Notes Section Notes 02/27/2025 Routine medical exam (ICD-10 - Z00.00) Needs mammogram and cologuard, will arrange again 02/27/2025 Coronary artery disease involving suqu[place] coronary artery of suqu[place] heart without angina pectoris (ICD-10 - I25.10) [...] well. WIll check fasting lipid panel 02/27/2025 termite helper (current) use of anticoagulants (ICD-10 - Z79.01) [...] Adrenal Protocol 07/17 LIPID PANEL, STANDARD (7600) 10/19/2023 LIPID PANEL, STANDARD (7600) 02/27/2025 COMPREHENSIVE METABOLIC PANEL (86015) COMPREHENSIVE METABOLIC PANEL (67683) CBC (INCLUDES DIFF/PLT) (6399) 5 CBC (INCLUDES DIFF/PLT) (6399) 4 Insurance Providers Payer Name Payer Address Payer Phone Subscriber Number Group Number Insured Name Patient Relationship to Insured Coverage Start Date Coverage End Date [employer] [facility] [address] [address] [place] [address] [id number] Ashley Ding Self - patient is the [...] toe Hospitalization History Reason Date(Month/Year) [facility] [place] blood cot 12/2024 [facility] 05/2023 [facility]- defibrillator shock, foot infection 12/2021 chest pain 2006 [place] 06/2016
--- OUTSIDE RECORDS SUMMARY | 2025-05-08 12:49 | XMS_ITS | Clinical Summary ---
Author Organization [facility] Address [address] [place] [address] Care Team Providers Care Mine Equipment Design Engineer Name Role Phone Fariha Henderson APRN Primary Care Provider [phone] Social History Tobacco Use Types Packs/Day Years Used Date Smoking Tobacco: Never Assessed Comments Unknown Sex and Gender Information Value Date Recorded Sex Assigned at Not on file Legal Sex Female 7:27 PM EDT Gender Identity Not on file Sexual Orientation Not on file Plan of Treatment Not on file Care Teams Mine Equipment Design Engineer Relationship Specialty Start Date End Date Fariha Henderson APRN [address] [place] [address] PCP - General 02/07/21
--- OUTSIDE RECORDS SUMMARY | 2025-05-08 12:49 | XMS_ITS | Clinical Summary ---
Author Organization [facility] Address 1 [facility] [address] [place] [phone] Phone Care Team Providers Care Utility Driver Name Role Phone González Gotti MD Unavailable [phone] Cristi Cleaning MD Unavailable [phone] William Hunter MD Primary Care Provider [phone] Allergies Active Allergy Reactions Criticality Noted Date Comments Atorvastatin Myalgia High 07/01/2023 Codeine Itching Low nausea Ezetimibe Myalgia High 07/01/2023 Hydrocodone Itching Low nausea Promethazine Other (See Comments) Low 06/12/2022 Made legs restless And also very sleepy Rosuvastatin Myalgia High 07/01/2023 Simvastatin Myalgia High 07/01/2023 Nufvtyf-Ahv-Aym Reductase Inhibitors Other (See Comments) 01/02/2025 Joint [...] 03/27/2025 fluticasone propionate (FLONASE) 50 mcg/actuation Nasl [place], Suspension 1 spay each nostril twice daily 1 Each 3 3 Active oxymetazoline (AFRIN) 0.05 % Nasl [place], Non-Aerosol 1 [place] by Nasal route as needed for Congestion [...] t be different from the original. 03/05/[address] 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 therapy 0 12/07/2023 Neuropathy 12/07/2023 Non-pressure chronic ulcer o f skin of other sites with unspecified severity 12/07/2023 Palpitations 12/07/2023 Atrial fibrillation with rapid ventricular respo nse 12/07/2023 Seasonal allergic rhinitis 12/07/2023 Sinusitis 12/07/2023 Stented coronary artery 12/07/2023 Typical angina 12/07/2023 Ventricular fibrillation 12/07/2023 Ventricular fibrillation seen on lunchroom monitor 12/07/2023 Ventricular tachyarrhythmia 12/07/2023 Failed flap 06/28/2023 Skin flap necrosis 06/28/2023 Atherosclerosis of artery of extremity with ulce ration 06/02/2023 PAD (peripheral artery disease) 06/01/2023 S/P foot surgery 06/01/2023 Cellulitis of left lower extremity 05/28/2023 Open wound of left foot 04/26/2023 Overview (04/26/2023): Added automatically from request for surgery [id number] Hammertoe of left foot 06/08/2022 Overview (06/08/2022): Added automatically from request for surgery [id number] Pain in left foot 06/08/2022 Overview (06/08/2022): Added automatically from request for surgery [id number] Gangrene of left foot 06/08/2022 Overview (06/08/2022): Added automatically from request for surgery [id number] Vaping nicotine dependence, non-tobacco product 03/05/2022 COPD [...] (02/08/2023): Added automatically from request for surgery [id number] Osteomyelitis of second toe of left foot 02/05/2023 06/01/2023 Overview (02/05/2023): Added automatically from request for surgery [id number] Atherosclerosis of [place] of left lower extremity with ulceration 09/07/2022 06/01/20 23 Atherosclerosis of [place] of left lower extremity with gangrene 03/05/2022 06/01/2023 [place] (myocardial infarction) 06/27/2016 0 06/01/2023 STEMI (ST elevation myocardial infarction) 06/01/2023 Overview (04/05/2017): STEMI with 3 NORI to RCA Foot ulceration, left, with necrosis of muscle 04/07/2024 Chronic toe ulcer, left, wit h necrosis of bone 06/01/2023 Encounters Date Type Department Care Team Description 05/07/2025 1:45 PM EDT - 05/07/2025 11:59 PM EDT Hospital Encounter [facility] [place] [address] [place] [address] Cristi Pelletier DPM Pressure ulcer of left heel, stage 4 (HCC) (Primary Dx) Discharge Disposition: Home or Self Care 04/23/2025 2:30 PM EDT - 04/23/2025 11:59 PM EDT Hospital Encounter [facility] [place] [address] [place] [address] Jabari Corado Jr., MD Pressure ulcer of left heel, stage 4 (HCC) (Primary Dx); 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) Discharge Disposition: Home or Self Care 04/16/2025 2:30 PM EDT - 04/16/2025 11:59 PM EDT Hospital Encounter [facility] [place] [address] [place] [address] Cristi Pelletier DPM 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) (Primary Dx); Pressure ulcer of left heel, stage 4 (HCC) Discharge Disposition: Home or Self Care 03/27/2025 8:00 AM EDT Office Visit [facility] [address] [facility] [address] [place] [phone] Vishnu Penn MD PAD (peripheral artery disease) (Primary Dx); Former smoker-quit 2021; Small vessel disease 03/26/2025 1:15 PM EDT - 03/26/2025 11:59 PM EDT Hospital Encounter [facility] [place] [address] [place] [address] Cristi Pelletier DPM Pressure ulcer of left heel, stage 4 (HCC) (Primary Dx) Discharge Disposition: Home or Self Care 03/12/2025 1:53 PM EDT - 03/12/2025 11:59 PM EDT Hospital Encounter [facility] [place] [address] [place] [address] Krit Dolan DPM 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) (Primary Dx); Stage III pressure ulcer of left heel (HCC); PAD (peripheral artery disease) Discharge Disposition: Home or Self Care 02/26/2025 3:15 PM EDT - 02/26/2025 11:59 PM EDT Hospital Encounter [facility] [place] [address] [place] [address] Kirt Dolan DPM Ischemic ulcer of left foot with fat layer exposed (HCC) (Primary Dx); 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); Stage III pressure ulcer of left heel (HCC); PAD (peripheral artery disease); Claudication of right lower extremity Discharge Disposition: Home or Self Care 02/20/2025 12:55 PM EDT - 02/20/2025 11:59 PM EDT Hospital Encounter [facility] [address] [facility] [place] [address] Nette Jalloh APRN PAD (peripheral artery disease); Peripheral vascular angioplasty status with implants and grafts Discharge Disposition: Home or Self Care 02/12/2025 2:25 PM EDT - 02/12/2025 11:59 PM EDT Hospital Encounter [facility] [address] [place] [place] [address] Cristi Pelletier DPM 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) (Primary Dx); Stage III pressure ulcer of left heel (HCC) Discharge Disposition: Home or Self Care 02/07/2025 9:40 AM EDT Office Visit [facility] [address] [facility] [address] [place] [address] May, Nette Rand APRN PAD (peripheral artery disease) (Primary Dx); Primary hypertension; Chronic obstructive pulmonary disease, unspecified COPD type (HCC); Peripheral vascular angioplasty status with implants and grafts; S/P insertion of iliac artery stent from Last 3 Months Surgical History Surgery Date Site/Laterality Comments CARDIAC PACEMAKER PLACEMENT 11/05/2016 M Dual PPM CORONARY ANGIOPLASTY WITH STENT PLACEMENT [...] IR REVAS FEM POP ART UNILAT W AUTOMOTIVE GENERAL MANAGER 03/13/2022 IR REVAS FEM POP ART UNILAT W AUTOMOTIVE GENERAL MANAGER 03/13/2022 Kashif Wong MD EDG IR COLONOSCOPY HAMMER TOE SURGERY 06/15/2022 Foot/Ankle/Left Left foot Correction of hammer toe deformity with arthroplasty second and third toe. Left foot Application of skin graft substitute.; Surgeon: Jabari Hill DPM; Location: [facility] MAIN OR; Service: Podiatry Medical devices from this surgery are in the Medical Devices section. SKIN GRAFT 06/15/2022 Left Surgeon: Jabari Hill DPM; Location: [facility] MAIN OR; Service: Podiatry Medical devices [...] substitute. ; Surgeon: Jabari Hill DPM; Location: [facility] MA[facility] OR; Service: Orthopedics Medical devices from this surgery are in the Medical Devices section. SKIN GRAFT 12/23/2022 Left . ; Surgeon: Jabari Hill DPM; Location: [facility] MAIN OR; Service: Orthopedics Medical devices from this surgery are in the Medical Devices section. TOE AMPUTATION 02/10/2023 Foot/Ankle/Left Foot/Ankle/Left Left foot second toe amputation, Left foot excisional debridement with application of skin graft substitute; Surgeon: Jabari Hill DPM; Location: [facility] MAIN OR; Service: Orthopedics Medical devices from this surgery are in the Medical Devices section. FOOT SURGERY 02/10/2023 Foot/Ankle/Left Surgeon: Jabari Hill DPM; Location: [facility] MA[facility] OR; Service: Orthopedics Medical devices from this surgery are in the Medical Devices section. SKIN GRAFT 02/10/2023 Surgeon: Jabari Hill DPM; Location: [facility] OR; Service: Orthopedics Medical devices from this surgery are in the Medical Devices section. TOE AMPUTATION 05/19/2023 Foot/Ankle/Left Left Left Left foot, amputation of third toe. Left foot, wound debridment application. Left foot, skin graft substitute. Left foot wound debridment closure.; Surgeon: Jabari Hill DPM; Location: [facility] OR; Service: Orthopedics Medical devices from this surgery are in the Medical Devices section. DEBRIDEMENT 05/19/2023 Left .; Surgeon: Jabari Hill DPM; Location: [facility] OR; Service: Orthopedics Medical devices from this surgery are in the Medical Devices section. LAYER WOUND CLOSURE 05/19/2023 Left .; Surgeon: Jabari Hill DPM; Location: [facility] MA[facility] OR; Service: Orthopedics Medical devices from this surgery are in the Medical Devices section. FOOT SURGERY 06/06/2023 Foot/Ankle/Left left FOOT TRANSMETATARSAL amputation; Surgeon: Jabari Hill DPM; Location: [facility] MAIN OR; Service: Podiatry Medical devices [...] IR REVAS FEM POP ART UNILAT W AUTOMOTIVE GENERAL MANAGER 06/02/2023 IR REVAS FEM POP ART UNILAT W AUTOMOTIVE GENERAL MANAGER 06/02/2023 Vishnu Penn MD EDG IR [...] TRANSCATH ARTERIAL INFUSION THROMBOLYSIS INITIAL TREAT 12/27/2024 Fili, Vishnu H, MD EDG IR IR REVAS FEM POP ART UNILAT W AUTOMOTIVE GENERAL MANAGER 12/28/2024 IR REVAS FEM POP ART UNILAT W AUTOMOTIVE GENERAL MANAGER 12/28/2024 Vishnu Penn MD EDG IR [...] disease) STEMI (ST elevation myocardi al infarction) ([facility]) STEMI with 3 NORI to RCA Cardiac pacemaker [facility] Dual PPM - Dr. Cleaning History of cardiac cath 03/23/[address] aced in Right leg 03/23/2017 [place] (myocardial infarction) ([facility]) 06/2016 Depression with anxiety Essential [...] 0.6 oz pur e alcohol) [facility] Utilities Answer Date Recorded In the past 12 months has e electric, gas, oil, or water [employer] threatened to shut off services in your home? No 12/28/2024 Overall Financial Resource Strain (CARDIA) Answe r Date Recorded How hard is it for you to pa y for the very basics like food, housing, medical care, and heating? Not hard at all 12/28/2024 PHQ-2 Answer Date Recorded PHQ-2 Total Score 0 12/28/2024 [facility] - Occupational Stress Questionnaire Answer Date Recorded [...] things needed for daily living? No 05/29/2023 [facility] IP Transportation Answer D ate [...] F) 05/07/2025 2:11 PM EDT Respiratory Rate 16 04/23/2025 2:55 [...] Info) Description 05/14/2025 3:15 PM EDT Appointment [facility] [address] [place] [address] Cristi Pelletier, DPM [address] [phone] 11/12/2025 1:30 PM EST Appointment [facility]ASCULAR [address] [place] [address] [address] [place] [address] [employer] SALES REPRESENTATIVE [address] [place] [address] [facility] [address] [place], [place] [address] 11/12/2025 2:40 PM EST Office Visit [facility] [address] [place] [address] [employer] [address] [id number] Health Maintenance Due Date Last Done Comments [...] tibial pulses. Medical Devices Implanted Type Area Glass Installer Device Identifier Shelf Expiration Date Model / Serial / Lot Defib Graft Tissue Myriad Thin 5 X 5cm - [id number] Implanted:Qty: 1 on 06/15/2022 by Jabari Hill, DPM at [facility] Left: Foot AROA BIOS[employer]GERY 07/27/2022 [id number] US / / [id number] Wire Denise [id number] Microaire [facility] Dbl End Troc Pnt - [id number] Implanted:Qty: 2 on 06/15/2022 by Jabari iHll, DPM at [facility] Left: Foot MICROAIRE SURG INSTR 11/22/2025 [id number] / / [id number] Stent Enpros 8mm 7fr Intro 38mm 80cm Icast Trachbr Be Cvr-11/04/2022 Implanted:Qty: 1 on 11/04/2022 by Vishnu Penn MD Left: Iliac Artery GETINGE INDUSTIER:GETINGE [facility] [id number] / / [id number] Graft Tissue Myriad Thin 5 X 5cm - [id number] Implanted:Qty: 1 on 12/23/2022 by Jabari Hill, DPM at [facility] Left: Foot AROA BIOSURGERY 02/24/2025 [id number] 5 US / / [id number] Graft Ovine Tissue 500mg Beatriz Morcells - [id number] Implanted:Qty: 1 on 12/23/2022 by Jabari Hill, DPM at [facility] Left: Foot [employer]OA BIOSURGERY 07/27/2023 [id number] / / [id number] Graft Tissue Myriad Thin 5 X 5cm - [id number] Implanted:Qty: 1 on 02/10/2023 by Jabari Hill, DPM at [facility] Left: Heel AROA BIOSURGERY 03/26/2025 [id number] 5 US / / [id number] Graft Tissue Myriad Thin 5 X 5cm - [id number] Implanted:Qty: 1 on 05/19/2023 by Jabari Hill, DPM at [facility] Left: Foot [employer]OA BIOSURGERY 03/26/2025 [id number] 5 US / / [id number] Graft Tissue Myriad Thin 5 X 5cm - [id number] Implanted:Qty: 1 on 06/06/2023 by Jabari Hill DPM at [facility] Left: Heel AROA BIOSURGERY 02/24/2025 [id number] 5 US / / [id number] Procedures Procedure Name Priority Date/Time Associated Diagnosis Comments [facility] L[facility] EXTREMITY ARTERIAL DUPLEX COMPLETE Routine 02/20/2025 2:08 PM EDT PAD (peripheral artery disease) Peripheral vascular angioplasty status with implants and grafts from Last 3 Months Results * [facility] EXTREMITY ARTERIAL DUPLEX COMPLETE (02/20/2025 2:08 PM EDT) Anatomical Region Laterality Modality Vascular, Leg Electrocardiogra phy 02/20/2025 1:19 PM EDT Impressions 02/20/2025 2:26 PM EDT Conclusions * Right: * RODOLFO: 0.63 (DPA, distal AUTOMOTIVE GENERAL MANAGER occluded) / TBI: 0, absent waveform. There is an occlusion of the distal posterior tibial artery. Dampened, biphasic flow of the proximal and mid posterior tibial artery. Mild to moderate plaque noted in the arteries of the right lower extremity. * Left: * RODOLFO: 1.29 (AUTOMOTIVE GENERAL MANAGER) / TBI: 0, metatarsal amputation. 20-49 % stenosis of the profunda, 145 cm/s. There is an occlusion of the proximal anterior tibial artery and the mid peroneal artery. Mild to moderate plaque noted in the arteries of the left lower extremity. Narrative Procedure Note Eusebio De Leon MD - 02/20/2025 IMPRESSION Conclusions * Right: * RODOLFO: 0.63 (DPA, distal AUTOMOTIVE GENERAL MANAGER occluded) / TBI: 0, absent waveform. Thereis an occlusion of the distal posterior tibial artery. Dampened, biphasicflow of the proximal and mid posterior tibial artery. Mild to moderate plaquenoted in the arteries of the right lower extremity. * Left: * RODOLFO: 1.29 (AUTOMOTIVE GENERAL MANAGER) / TBI: 0, metatarsal amputation. 20-49 % stenosis ofthe profunda, 145 cm/s. There is an occlusion of the proximal anteriortibial artery and the mid peroneal artery. Mild to moderate plaque noted in the arteries of the left lower extremity. us Nette L May MEDICARE SALES REPRESENTATIVE IMG VASCULAR ORDERABLES Final R esult from Last 3 Months Insurance [employer] [facility] [facility] [place] [employer] [facility] [place] [employer] [place] Advance Directives For more information, please contact: [phone] * Full Code (Latest Code Status on File) Date Activated Date Inactivated Comments 12/27/2024 10:43 PM 01/01/2025 9:14 PM * Full Code Date Activated Date Inactivated Comments 05/28/2023 10:35 AM 06/11/2023 9:55 PM Care Teams Utility Driver Relationship Specialty Start Date End Date William Hunter MD [facility] [address] [place] [phone] PCP - General Internal Medicine-Adolescent Medicine 05/28/23 González Gotti MD [address] [place] [id number] Consulting Physician Internal Medicine - Clinical Cardiac Electrophysiology 04/05/17 Cristi Cleaning MD [address] [place] [id number] Physician Internal Medicine-Cardiovascular Disease 04/05/17
--- OUTSIDE RECORDS SUMMARY | 2025-05-08 12:49 | XMS_ITS | Encounter Summary ---
Author Organization Healthcare Address [address] [place] [address] Care Team Providers Care It Support Specialist Name Role Phone Fariha Henderson APRN Primary Care Provider [phone] Encounter Details Date Type Department Care Team (Late st Contact Info) Description 02/18/2022 [facility] [address] [place] [address] Jabari Goetz MD [address] [facility] [address] [place] [address] PAD (peripheral artery disease) (CMS/HCC) [...] disease documented in this encounter Care Teams It Support Specialist Relationship Specialty Start Date End Date Fariha Henderson APRN [address] [place] [address] PCP - General 02/07/21 documented as of this encounter
--- NOTE | 2025-05-08 13:00 | NM_ITS ---
APPROVED REPORT Exam: Nuclear Stress Test Indication: high bp..high cholesterol Patient Location: Outpatient Stress Tech: Marcella LEE Tech:OVIDIO Guevara RT(R)(N) Ht: 5 ft 4 in Wt: 150 lbs Bra Size: 38c HR: 70 bpm BP: 177/104 mmHg BSA: 1.73 m2 TID: 0.87 BMI: 25.7 History: high bp..high cholesterol Procedure: Patient received 0.4 mg of intravenous Lexiscan, resting heart rate 70 bpm, resting blood pressure 177/104 mmHg, with Lexiscan maximum heart rate achieved was 73 bpm which is 85 % of the maximum predicted heart rate and blood pressure was 190/91 mmHg. With Lexiscan, patient denied any complaint of chest pain. Cardiac Stress and Resting SPECT Images: Cardiac Stress and Resting SPECT images were obtained using technetium 99m Myoview 32.5 mCi stress and 10.02 mCi at rest. Resting and stress imaging in supine and prone positions demonstrate a large-sized, severe, predominantly fixed perfusion defects in the inferior, inferoseptal, septal, inferolateral, and lateral LV magana. There is a small region of reversibility towards the septal LV wall. Gated imaging demonstrates severe reduction in global LV systolic function. LVEF is calculated at 21%. Conclusion: Large-sized, severe, predominantly fixed perfusion defects in the inferior, inferoseptal, septal, inferolateral, and lateral LV magana. There is a small region of reversibility towards the septal LV wall. Findings are suggestive of partial reversible ischemia. Gated imaging demonstrates severe reduction in global LV systolic function. LVEF is calculated at 21%. Electronically signed by : Cecilia Finnegan MD 05/09/2025 13:44:36
[2025-05-08] MEDS: ISOTOPE MYOVIEW (PER STUDY) 1 DOSE IV (14:05)
[2025-05-08] MEDS: SODIUM CHLORIDE 0.9% 10ML SYR (RAD ONLY) 10 ML IV ×2 (14:05)
== END 2025-05-08 23:59 | disposition home or self-care (01) ==
LOC: RAD 12:46
PROVIDERS: PCP Internal Medicine Adolescent Medicine; Visit Provider Internal Medicine
DX: I25.10 Atherosclerotic heart disease of native coronary artery without angina pectoris (principal); R06.09 Other forms of dyspnea; I10 Essential (primary) hypertension; E78.5 Hyperlipidemia, unspecified
CPT/HCPCS: 78452; 93016; 93017; 93018; A9502; J2785

== ENCOUNTER 2025-05-15 08:29 | Day surgery (SDC) | payer OTHER, SELFPAY ==
[2025-05-15] VITALS (13 sets, daily range): BP systolic 94–152; BP diastolic 54–94; PULSE 60–70; RESP 16–18; TEMP 36.6; O2SAT 90–100; BMI 26.1
--- NOTE | 2025-05-15 07:02 | IR_ITS ---
APPROVED REPORT Patient Location: Outpatient PROCEDURES Left heart catheterization Left ventriculogram Selective coronary angiogram Intravascular ultrasound the proximal LAD Drug-eluting stent deployment to the proximal LAD INDICATION Coronary artery disease, Normal Myoview, Angina pectoris, Complex angiography requiring intravascular ultrasound guidance Informed consent was obtained prior to the procedure. COMPLICATIONS NONE Estimated Blood Loss: LESS THAN 10 ML TECHNIQUE One percent lidocaine used to anesthetize the right anterior aspect of the wrist. The right radial artery was accessed via the Seldinger technique. A 6 [place] sheath was placed in the right radial artery. 2.5 mg of Verapamil, 800 mcg of nitroglycerin, 1mg Lidocaine and 5000 U Heparin were given through the arterial sheath. The JL3 catheter was also used to perform left heart catheterization, left ventriculogram and selective coronary angiogram. At the end the diagnostic angiogram therapeutic Was eventually given a therapeutic ACT and the guide catheter was placed in left main artery followed by Choice PT export wire placed distally. 3 mm x 38 mm Brian frontier stent was deployed at 20 troy reducing the stenosis. Intravascular sound probe was advanced which demonstrated undersizing in the proximal segment with good stent expansion distally. A 3.25 x 15 mm noncompliant balloon was deployed in the proximal 15 mm of the stent at 20 troy to post dilate. Excellent angiograph results were obtained. MARA-3 flow was present before and after the procedure. At the end the procedure the apparatus was removed the sheath was removed and hemostasis was achieved using TR banding patient was transferred to the postop boarding in stable condition ANGIOGRAPHIC RESULTS The left main artery Normal The left anterior descending artery Has proximal 70% concentric stenosis followed by additional proximal to mid vessel 40 to 50% stenosis The circumflex artery Nondominant highly tortuous with a mid vessel to distal 60 to 70% concentric stenosis along a tortuous bend. The circumflex artery gives rise to a large ramus intermedius which has proximal 30% stenosis The right coronary artery Codominant and occluded at mid vessel with a distal vessel filling via [id number] collaterals The WRAY ventriculogram reveals Not performed The left ventricular end-diastolic pressure Not measured IMPRESSION Severe disease in the proximal LAD with successful stenting reducing the lesions to 0% with 1 drug-eluting stent Chronically occluded right coronary Moderate to severe disease in a mid to distal nondominant circumflex artery which occurs along a tortuous bend and is best treated medically PLAN 1. Dual antiplatelet therapy 2. Cardiac rehabilitation 3. Avoidance of tobacco products 4. Factor modification 5. LDL less than 55 to achieve the 2 intensity statin Electronically signed by : Cristi Cleaning MD 05/16/2025 13:45:02
[2025-05-15 08:54] LABS: Hematocrit 40.7 % (37.0-47.0); Hemoglobin 13.9 g/dL (12.2-16.2); Immature Granulocytes % 0.4 %; Mean Corpuscular HGB Conc 34.2 g/dL (31.8-35.4); Mean Corpuscular Hemoglobin 29.4 pg (27.0-31.2); Mean Corpuscular Volume 86.0 fl (81-99); Nucleated Red Blood Cells % 0 %; Platelet Count 291 K/mm3 (142-424); Red Blood Count 4.73 M/mm3 (4.20-5.40); Red Cell Distribution Width-SD 46.1 fL; White Blood Count 6.9 K/mm3 (4.8-10.8)
[2025-05-15 09:15] LABS: Anion Gap 14.0 mEq/L (5-15); Blood Urea Nitrogen 15 mg/dl (7-17); Calcium 9.4 mg/dl (8.4-10.2); Carbon Dioxide 25 mmol/L (22.0-30.0); Chloride 105 mmol/L (98-107); Creatinine Clearance Estimated 82 mL/min (50-200); Creatinine,Serum 0.80 mg/dl (0.52-1.04); Estimated Glomerular Filt Rate 73 ml/min (>60); GFR (African American) 89 ML/MIN (>60); Glucose 105 mg/dl (74-100); Potassium 4.0 mmoL/L (3.5-5.1); Sodium 140 mmol/L (136-145)
[2025-05-15] MEDS: HEPARIN 1,000 UNITS/500ML NS (CATH LAB) 3000 UNIT IV (10:11)
[2025-05-15] MEDS: NITROGLYCERIN 800MCG/8ML SYR (CATH LAB) 800 MCG IA (10:11)
[2025-05-15] MEDS: LIDOCAINE 1% 10ML MDV 10 ML IJ (10:11)
[2025-05-15] MEDS: VERAPAMIL 2.5MG/ML 2ML VIAL 2.5 MG IV (10:12)
[2025-05-15] MEDS: HEPARIN 1,000 UNITS/ML 10ML VIAL (CATH LAB) 5000 UNIT IV ×2 (10:12→10:36)
[2025-05-15] MEDS: 0.9 % SODIUM CHLORIDE 500 ML 25 ML IV (10:12)
[2025-05-15] MEDS: MIDAZOLAM HCL 1MG/ML 5ML VIAL 1 MG IV (10:48)
[2025-05-15] MEDS: FENTANYL 100MCG/2ML VIAL 50 MCG IV (10:48)
[2025-05-15] MEDS: CLOPIDOGREL 75MG TAB 75 MG PO (10:54)
[2025-05-15] MEDS: IOPAMIDOL-370 (76%);100ML BOTTLE 75 ML IV (11:32)
== END 2025-05-15 14:46 | disposition home or self-care (01) ==
PROVIDERS: PCP Internal Medicine Adolescent Medicine; Visit Provider Internal Medicine
PROC: 4A023N7 Measurement of Cardiac Sampling and Pressure, Left Heart, Percutaneous Approach (ICD-10-PCS; CPT 93452; principal; 2025-05-15 09:15)
DX: I25.118 Atherosclerotic heart disease of native coronary artery with other forms of angina pectoris (principal); R94.39 Abnormal result of other cardiovascular function study; I11.0 Hypertensive heart disease with heart failure; I50.20 Unspecified systolic (congestive) heart failure; I47.20 Ventricular tachycardia, unspecified; I70.1 Atherosclerosis of renal artery; I77.9 Disorder of arteries and arterioles, unspecified; S98.139A Complete traumatic amputation of one unspecified lesser toe, initial encounter; E78.2 Mixed hyperlipidemia; Z86.14 Personal history of Methicillin resistant Staphylococcus aureus infection; Z95.810 Presence of automatic (implantable) cardiac defibrillator; Z87.891 Personal history of nicotine dependence; Z95.5 Presence of coronary angioplasty implant and graft; Z79.82 Long term (current) use of aspirin; Z79.01 Long term (current) use of anticoagulants; Z79.02 Long term (current) use of antithrombotics/antiplatelets; Z79.84 Long term (current) use of oral hypoglycemic drugs; Z79.899 Other long term (current) drug therapy; Z88.5 Allergy status to narcotic agent; Z88.8 Allergy status to other drugs, medicaments and biological substances
CPT/HCPCS: 80048; 85025; 92928; 92978; 93458; 99152; 99153; C1725; C1769; C1874; C9600; J1200; J1644; J2003; J3010; J7040; Q9967

== ENCOUNTER 2025-05-18 16:17 | Outpatient (CLI) | payer OTHER, SELFPAY ==
--- OUTSIDE RECORDS SUMMARY | 2024-12-30 17:30 | XMS_ITS ---
Author Organization [facility] D [facility] Address [address] [place] [address] Care Team Providers Care Cat Breeder Name Role Phone William Hunter Primary Care Provider [phone] Sarah Wing Unavailable [phone] Migration, Provider Unavailable Unavailable Allergies Allergen (clinical drug ingredient) Drug/Non Drug Allergy documented on EMR Reaction Allergy Type Onset Date Status Substance with 7-swcjwob-9-methylg lutaryl-coenzyme A reductase inhibitor mechanism of action (substance) Statins couldnt walk Drug Allergy Active codeine Codeine Unknown Drug Allergy Active hydrocodone HYDROcodone itchy and nausea Drug Allergy Active [facility]AS[facility] FOR VISIT [facility] Encounter Medications Medication SIG (Take, Route, Frequency, Duration) Notes Start Date End Date Status Metoprolol Succinate ER 100 MG TAKE 1 AND 1/2 TABLET BY MOUTH TWICE DAILY; Duration: 30 days Active Aspirin 81 MG 1 TAB(S) ORALLY ONCE A DAY *Please review and pick correct strength-formula [facility]ion [facility]. If intended option is not [...] Active Encounters Encounter Location Date Provider Diagnosis [place] [facility] [address] [facility] [address] [place] [address] 12/30/2024 Provider Migration Plan Of Treatment Medication [...] Notes * Rodo GLEZB:1965 (59 yo F)Acc No.[id number]:12/30/2024 Patient: Ashley NICOLE Provider: Janell elizabeth Migration :1965 Mamta ge:59 Y S ex:Female Date:12/30/2024 [address] [id number] Pcp:William Hunter Subjective: * Chief Complaints: * 1 . Multum To Medispan Conversion Encounter. * Medical History: * Medications: T aking Aspirin 81 MG TABLET 1 TAB(S) ORALLY ONCE A DAY , Notes to Pharmacist: *Please review and pick correct strength-formulation from [email or web address] options. If intended option is not shown, [...] Electronic signature of Prov ider Migration on 05/18/2025 at 04:19 PM EDT Sign off status: Pending * Provider: Janell elizabeth Migration Date: 12/30/2024 Generated for Zuleima crockett/Joe/Farrukh on: 05/18/2025 04:19 PM EDT
--- OUTSIDE RECORDS SUMMARY | 2025-03-21 05:38 | XMS_ITS ---
Author Organization [facility] Address [address] [place] [address] Care Team Providers Care Apiculture Teacher Name Role Phone William Hunter Primary Care Provider Sarah Wing Unavailable [phone] REASON FOR VISIT ultrasound order Encounters Encounter Location Date Provider Diagnosis [facility] [address] [place] [address] 03/21/2025 Sarah Wing Abnormal mammogram R92.8 Assessments Encounter Date Diagnosis (ICD Code) Assessment Notes Treatment Notes Treatment Clinical Notes Section Notes 03/21/2025 Abnormal mammogram (ICD-10 - R92.8) Plan Of Treatment Pending Test Test Name Order Date Ultrasound : Breast, Left 03/21/2025 Progress Notes * Oz GLEZIdaliaB:1965 (59 yo F)Acc No.[id number]:03/21/2025 Patient: Ashley NICOLE :1965 A ge:59 Y S ex:Female Address:[place], [address] Subjective: * Chief Complaints: * U ltrasound order * Medical History: * Surgical History: * Hospitalization/Major Diagno stic Procedure: * Medications: Objective: * Vitals: * Physical Examination: Assessment: * Assessment: 1. A bnormal mammogram - R92.8 Plan: * Treatment: * Procedure Codes: * true * Date: Generated for Zuleima crockett/Joe/Farrukh on: 0 05/18/2025 04:20 PM EDT
--- OUTSIDE RECORDS SUMMARY | 2025-03-26 13:15 | XMS_ITS | Encounter Summary ---
Author Organization [place] [address] Care Team Providers Care Management Trainee Program Stores Name Role Phone González Gotti MD Unavailable [phone] Cristi Cleaning MD Unavailable [phone] William Hunter MD Primary Care Provider [phone] Reason for Referral * In Office Procedure (Routine) - Pending Review Specialty Diagnoses / Procedures Referred By Contac t Referred To Contact Diagnoses Pressure ulcer of left heel, stage 4 (HCC) Procedures [place] DEBRIDEMENT MUSCLE &/FASCIA 1ST 20 SQ CM/< Cristi Pelletier DPM [address] [place] [id number] Phone: tel: fax: Referral ID Status Reason Start Date Expiration Date V isits Requested Visits Authorized [id number] Pending Review 04/01/2025 04/01/2026 1 1 * (Routine) - Pending Review Specialty Diagnoses / Procedures Referred By Contac t Referred To Contact Diagnoses Pressure ulcer of left heel, stage 4 (HCC) Procedures [facility] Cristi Pelletier DPM [address] [address] Phone: tel: fax: Referral ID Status Reason Start Date Expiration Date V isits Requested Visits Authorized [id number] Pending Review 03/26/2025 03/26/2026 1 1 Reason for Visit * Reason Comments Wound Check * Consultation (Routine) - Authorization Not Needed Specialty Diagnoses / Procedures Referred By Brian t Referred To Contact Wound Care Diagnoses Wound Care Procedures [place] DEBRIDEMENT SUBCUTANEOUS TISSUE 1ST 20 SQ CM/< [place] DEBRIDEMENT MUSCLE &/FASCIA 1ST 20 SQ CM/< [place] DEBRIDEMENT BONE 1ST 20 SQ CM/< [place] DEBRIDEMENT SUBCUTANEOUS TISSUE EA ADDL 20 SQ CM [place] DEBRIDEMENT MUSCLE &/FASCIA EA ADDL 20 SQ CM [place] DEBRIDEMENT BONE EACH ADDITIONAL 20 SQ CM [place] DEBRIDEMENT OPEN WOUND FIRST 20 SQ CM/< [place] DEBRIDEMENT OPN WND EA ADDL 20 SQ CM/PRT THEREOF [facility] [address] [place] [address] Phone: tel: fax: Referral ID Status Reason Start Date Expiration Date Visits Requested Visits Authorized [id number] Authorization Not Needed Specialty Services Required 5 01/08/2026 99 99 Encounter Details Date Type Department Care Team (Latest Contact Info) Description 03/26/2025 1:15 PM EDT - 03/26/2025 11:59 PM EDT Hospital Encounter [facility] [address] [place] [address] Cristi Pelletier DPM [address] [address] Pressure ulcer of left heel, [...] In the past 12 months has e [employer], gas, oil, or water company threatened to shut off services in your home? No 12/28/2024 Overall Financial Resource Strain (CARDIA) Answe r Date Recorded How hard is it for you to pa y for the very basics like food, housing, medical care, and heating? Not hard at all 12/28/2024 PHQ-2 Answer Date Recorded PHQ-2 Total Score 0 12/28/2024 [facility] - Occupational Stress [...] things needed for daily living? No 05/29/2023 [facility] IP Transportation Answer D ate Recorded In [...] days. fluticasone propionate (FLONASE) 50 mcg/actuation Nasl [place], Suspension 1 spay each nostril twice daily [...] EDT 06/11/2023 oxymetazoline (AFRIN) 0.05 % Nasl [place], Non-Aerosol 1 [place] by Nasal route as needed for Congestion [...] Bradycardia CAD (coronary artery disease) Cardiac pacemaker [facility] Dual PPM 11/05/2016 - Dr. Cleaning Chronic systolic heart failure ([facility]) COPD (chronic obstructive pulmonary disease) ([facility]) Depression with anxiety Emphysema, unspecified ([facility]) Essential hypertension Headache Heartburn History of cardiac cath 03/23/2017 Stent placed in Right leg 03/23/2017 HLD (hyperlipidemia) Hypertension OR (myocardial infarction) ([facility]) 06/2016 Pacemaker Post-operative nausea and vomiting Sinus node dysfunction ([facility]) [facility] Dual PPM 11/05/2016 - Dr. Cleaning STEMI (ST elevation myocardial infarction) ([facility]) STEMI with 3 NORI to RCA Systolic heart failure ([facility]) 02/2017 ECHO, EF 25% Past Surgical History: Procedure Laterality Date CARDIAC CATHETERIZATION Right 03/23/2017 stent placed in right leg CARDIAC PACEMAKER PLACEMENT 11/05/2016 [facility] Dual PPM COLONOSCOPY CORONARY ANGIOPLASTY WITH STENT PLACEMENT 06/2016 x3 DEBRIDEMENT Left 05/19/2023 .; Surgeon: Jabari Hill DPM; Location: [facility] MAIN OR; Service: Orthopedics FEMUR FRACTURE SURGERY Right right femur fx repair FOOT SURGERY FOOT SURGERY Left 12/23/2022 Left foot heel and second and third toe debridement with application of skin graft substitute. ; Surgeon: Jabari Hill DPM; Location: [facility] OR; Service: Orthopedics FOOT SURGERY Left 02/10/2023 Surgeon: Jabari Hill DPM; Location: [facility] OR; Service: Orthopedics FOOT SURGERY Left 06/06/2023 left FOOT TRANSMETATARSAL amputation; Surgeon: Jabari Hill DPM; Location: [facility] MAIN OR; Service: Podiatry HAMMER TOE SURGERY Left 06/15/2022 Left foot Correction of hammer toe deformity with arthroplasty second and third toe. Left foot Application of skin graft substitute.; Surgeon: Jabari Hill DPM; Location: [facility] OR; Service: Podiatry HIP [...] IR REVAS FEM POP ART UNILAT W RETAIL PRESENTATION SPECIALIST 03/13/2022 IR REVAS FEM POP ART UNILAT W RETAIL PRESENTATION SPECIALIST 03/13/2022 Kashif Wong MD EDG IR IR REVAS FEM POP ART UNILAT W RETAIL PRESENTATION SPECIALIST 06/02/2023 IR REVAS FEM POP ART UNILAT W RETAIL PRESENTATION SPECIALIST 06/02/2023 Vishnu Penn MD EDG IR IR REVAS FEM POP ART UNILAT W RETAIL PRESENTATION SPECIALIST 12/28/2024 IR REVAS FEM POP ART UNILAT W RETAIL PRESENTATION SPECIALIST 12/28/2024 Vishnu Penn MD EDG IR [...] 05/19/2023 .; Surgeon: Jabari Hill DPM; Location: [facility]; Service: Orthopedics SKIN GRAFT Left 06/15/2022 Surgeon: Jabari Hill DPM; Location: [facility]; Service: Podiatry SKIN GRAFT Left 12/23/2022 . ; Surgeon: Jabari Hill DPM; Location: [facility]; Service: Orthopedics SKIN GRAFT 02/10/2023 Surgeon: Jabari Hill DPM; Location: [facility]; Service: Orthopedics TOE AMPUTATION Left 02/10/2023 Left foot second toe amputation, Left foot excisional debridement with application of skin graft substitute; Surgeon: Jabari Hill DPM; Location: [facility]; Service: Orthopedics TOE AMPUTATION Left 05/19/2023 Left foot, amputation of third toe. Left foot, wound debridment application. Left foot, skin graft substitute. Left foot wound debridment closure.; Surgeon: Jabari Hill DPM; Location: [facility]; Service: Orthopedics Current Outpatient [...] days. fluticasone propionate (FLONASE) 50 mcg/actuation Nasl [place], Suspension 1 spay each nostril twice daily [...] Chest pain. oxymetazoline (AFRIN) 0.05 % Nasl [place], Non-Aerosol 1 [place] by Nasal route as needed for Congestion [...] Myalgia Ezetimibe Myalgia Rosuvastatin Myalgia Simvastatin Myalgia Auqzdji-Fgr-Dab Reductase Inhibitors Other (See Comments) Joint pain [...] stage 4 (HCC) - [facility] - [place] DEBRIDEMENT MUSCLE &/FASCIA 1ST 20 SQ CM/< [...] 4x4, roll gauze, every other day. 03/26 [facility] [employer] has been contacted to obtain your wound [...] to reach out to our community service coordinator, Hanna Riggs at [phone] for any discussion. WHO TO CALL FOR PROBLEMS: Please call the OP wound care center with any problems or issues you may have after your visit or though the week. Each patient is assigned a caseworker protective services who can assist with issues you may be having. Individual office numbers are listed below. Press 1 for immediate or schedule needs, press 2 for the nursing line. The nurse line is for non-emergent needs and will be answered within 24 hours duringbusiness days. If you have a more immediate concern, press option #1. Office numbers: [phone] [place] Claudio[place]kr[place]u-[phone] [place]- [phone] Our offices do not have an on-call provider. If you have emergent needs after hours please contact your primary care provider. You may also utilize the [place] Nurse NOW Helpline: 9-987-4BJT-NOW for after-hours needs to get in contact with a nurse for assistance. documented in this encounter Plan of Treatment Upcoming Encounters Date Type Department Care Team (Late st Contact Info) Description 06/04/2025 2:15 PM EDT Appointment [facility] González [address] [place] [address] Cristi Pelletier, ROGER [address] [address] 11/12/2025 1:30 PM EST Appointment [facility] [address] [place] [address] [place] [phone] January, Nette Rand APRN [address] [place] [address] 11/12/2025 2:40 PM EST Office Visit [facility] [address] [place] [address] JanuaryNette APRN [address] [place] [address] Scheduled Orders Name Type Priority Associated Diagnoses Orde r Schedule [place] DEBRIDEMENT MUSCLE &/FASCIA 1ST 20 SQ CM/< [place] Charge Routine Pressure ulcer of left heel, [...] 03/26/2025 documented in this encounter Care Teams Management Trainee Program Stores Relationship Specialty Start Date End Date William Hunter MD [address] [place] [address] [place] [id number] PCP - General Internal Medicine-Adolescent Medicine 05/28/23 González Gotti MD [address] [place] [address] DR MARTINEZ [place] [id number] Consulting Physician Internal Medicine - Clinical Cardiac Electrophysiology 04/05/17 Cristi Cleaning MD [address] [place] [address] DR MARTINEZ [place] [id number] Physician Internal Medicine-Cardiovascular Disease 04/05/17 documented as of this encounter
--- OUTSIDE RECORDS SUMMARY | 2025-03-27 08:00 | XMS_ITS | Encounter Summary ---
Author Organization [place] [address] Care Team Providers Care Mannequin Mold Maker Name Role Phone González Gotti MD Unavailable [phone] Cristi Cleaning MD Unavailable [phone] William Hunter MD Primary Care Provider [phone] Reason for Referral * Vascular Imaging (Routine) - Pending Review Specialty Diagnoses / Procedures Referred By Brian villavicencio Referred To Contact Radiology Diagnoses PAD (peripheral artery disease) Small vessel disease Procedures [facility] LOWER EXTREMITY ARTERIAL DUPLEX COMPLETE Vishnu Penn MD [address] [place] [address] [address] [place] [address] Phone: tel: fax: Referral ID Status Reason Start Date Expiration Date V isits Requested Visits Authorized [id number] Pending Review 03/27/2025 03/27/2026 1 1 Reason for Visit * Reason Comments Peripheral Arterial Disease (PAD) * Surgical (Routine) - Pending Review Specialty Diagnoses / Procedures Referred By Brian villavicencio Referred To Contact Surgery-Vascular Surgery / Vascular Surgery Diagnoses 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) Procedures OK OFFICE/OUTPATIENT NEW MODERATE MDM 45 MINUTES Kirt Dolan DPM [address] [facility] [address] [place] [address] Phone: tel: fax: Vishnu Penn MD [address] [place] [address] [address] [place] [address] Phone: tel: fax: Referral ID Status Reason Start Date Expiration Date Visits Requested Visits Authorized [id number] Pending Review Specialty Services Required 02/26/2025 02/26/2026 1 1 Encounter Details Date Type Department Care Team (Phani st Contact Info) Description 03/27/2025 8:00 AM EDT Office Visit [facility] [address] [place] [address] Vishnu Penn MD [address] [place], [place] [id number] PAD (peripheral artery disease) (Primary Dx); Former smoker-quit 2021; Small vessel disease Social History Tobacco Use Types Packs/Day Years Used Date Smoking Tobacco: Former Cigarettes 0.3 40 0 12/26/1981 - 12/26/2021 Passive Smoke Exposure: Past Smokeless Tobacco: Never Tobacco Cessation:Counseling Given: Not Answered Alcohol Use Standard Drinks/Week Comments Not Currently 0 (1 standard drink = 0.6 oz pur e alcohol) [facility] Utilities Answer Date Recorded In the past 12 months has [employer] electric, gas, oil, or water company threatened to shut off services in your home? No 12/28/2024 Overall Financial Resource Strain (CARDIA) Answe r Date Recorded How hard is it for you to pa y for the very basics like food, housing, medical care, and heating? Not hard at all 12/28/2024 PHQ-2 Answer Date Recorded PHQ-2 Total Score 0 12/28/2024 [facility] - Occupational Stress [...] things needed for daily living? No 05/29/2023 [facility] IP Transportation Answer D ate Recorded [...] Everywhere. 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 Cleaning STEMI (ST elevation myocardial infarction) ([facility]) STEMI with 3 NORI to RCA Systolic heart failure ([facility]) 02/2017 ECHO, EF 25% Patient Active Problem List Diagnosis Date Noted Small vessel disease 03/27/2025 Claudication of right lower extremity 02/26/2025 Pressure ulcer of left heel, stage 4 ([facility]) 01/09/2025 Critical limb ischemia of both lower extremities (HCC) 12/28/2024 DVT, lower extremity, distal, acute, left ([facility]) 12/27/2024 Former smoker-quit 202112/08/2024 Abnormal ankle brachial [...] situ 12/07/2023 Insomnia 12/07/2023 Kidney stone 12/07/2023 custodial current use of anticoagulant therapy 12/07/2023 Neuropathy 12/07/2023 Non-pressure chronic ulcer of skin of other sites with unspecified severity ([facility]) 12/07/2023 Palpitations 12/07/2023 Atrial fibrillation with rapid ventricular response ([facility]) 12/07/2023 Seasonal allergic rhinitis 12/07/2023 Sinusitis 12/07/2023 Stented coronary artery 12/07/2023 Typical angina 12/07/2023 Ventricular fibrillation ([facility]) 12/07/2023 Ventricular fibrillation seen on filer repairer ([facility]) 12/07/2023 Ventricular tachyarrhythmia ([facility]) 12/07/2023 Failed flap 06/28/2023 Skin flap necrosis ([facility]) 06/28/2023 Atherosclerosis of artery of extremity with ulceration ([facility]) 06/02/2023 PAD (peripheral artery disease) 06/01/2023 S/P foot surgery 06/01/2023 Cellulitis of left lower extremity 05/28/2023 Open wound of left foot 04/26/2023 Hammertoe of left foot 06/08/2022 Pain in left foot 06/08/2022 Gangrene of left foot ([facility]) 06/08/2022 Vaping nicotine dependence, non-tobacco product 03/05/2022 COPD (chronic obstructive pulmonary disease) ([facility]) HLD (hyperlipidemia) Hypertension Emphysema, unspecified CAD (coronary artery disease) Cardiac pacemaker History of cardiac cath Depression with anxiety Essential hypertension Chronic systolic heart failure ([facility]) Sinus node dysfunction ([facility]) Bradycardia Past Surgical History: Procedure Laterality Date CARDIAC CATHETERIZATION Right 03/23/2017 stent placed in right leg CARDIAC PACEMAKER PLACEMENT 11/05/2016 SJM Dual PPM COLONOSCOPY CORONARY ANGIOPLASTY WITH STENT PLACEMENT 06/2016 x3 DEBRIDEMENT Left 05/19/2023 .; Surgeon: Jabari Hill DPM; Location: [facility]; Service: Orthopedics FEMUR FRACTURE SURGERY Right right femur fx repair FOOT SURGERY FOOT SURGERY Left 12/23/2022 Left foot heel and second and third toe debridement with application of skin graft substitute. ; Surgeon: Jabari Hill DPM; Location: [facility]; Service: Orthopedics FOOT SURGERY Left 02/10/2023 Surgeon: Jabari Hill DPM; Location: [facility]; Service: Orthopedics FOOT SURGERY Left 06/06/2023 left FOOT TRANSMETATARSAL amputation; Surgeon: Jabari Hill DPM; Location: [facility]; Service: Podiatry HAMMER TOE SURGERY Left 06/15/2022 Left foot Correction of hammer toe deformity with arthroplasty second and third toe. Left foot Application of skin graft substitute.; Surgeon: Jabari Hill DPM; Location: [facility]; Service: Podiatry HIP SURGERY [...] IR REVAS FEM POP ART UNILAT W CARGO BRACER 03/13/2022 IR REVAS FEM POP ART UNILAT W CARGO BRACER 03/13/2022 Kashif Wong MD [facility] IR REVAS FEM POP ART UNILAT W CARGO BRACER 06/02/2023 IR REVAS FEM POP ART UNILAT W CARGO BRACER 06/02/2023 Vishnu Penn MD [facility] IR REVAS FEM POP ART UNILAT W CARGO BRACER 12/28/2024 IR REVAS FEM POP ART UNILAT W CARGO BRACER 12/28/2024 Vishnu Penn MD [facility] IR [...] IR ULTRASOUND GUIDED VASCULAR ACCESS 12/27/2024 Vishnu Pnen MD [facility] IR LAYER WOUND CLOSURE Left 05/19/2023 .; Surgeon: Jabari Hill DPM; Location: [facility]; Service: Orthopedics SKIN GRAFT Left 06/15/2022 Surgeon: Jabari Hill DPM; Location: [facility]; Service: Podiatry SKIN GRAFT Left 12/23/2022 . ; Surgeon: Jabari Hill DPM; Location: [facility]; Service: Orthopedics SKIN GRAFT 02/10/2023 Surgeon: Jabari Hill DPM; Location: [facility]; Service: Orthopedics TOE AMPUTATION Left 02/10/2023 Left foot second toe amputation, Left foot excisional debridement with application of skin graft substitute; Surgeon: Jabari Hill DPM; Location: [facility]; Service: Orthopedics TOE AMPUTATION Left 05/19/2023 Left foot, amputation of third toe. Left foot, wound debridment application. Left foot, skin graft substitute. Left foot wound debridment closure.; Surgeon: Jabari Hill DPM; Location: [facility]; Service: Orthopedics Family History [...] DAILY fluticasone propionate (FLONASE) 50 mcg/actuation Nasl [place], Suspension 1 spay each nostril twice daily [...] HOURS PRN oxymetazoline (AFRIN) 0.05 % Nasl [place], Non-Aerosol 1 [place], Nasal, PRN pantoprazole (PROTONIX) 40 mg, DAILY Ranolazine 1,000 mg Oral Tablet Sustained Release 12 hr 1 Tablet, 2 TIMES DAILY Repatha SureClick 140 mg, EVERY 14 DAYS rOPINIRole (REQUIP) 1 mg, NIGHTLY VITAMIN B COMPLEX ORAL 1 Tablet, DAILY Allergies Allergen Reactions Atorvastatin Myalgia Ezetimibe Myalgia Rosuvastatin Myalgia Simvastatin Myalgia Lycbrrd-Dcd-Izl Reductase Inhibitors Other (See Comments) Joint pain [...] * Right: * RODOLFO: 0.63 (DPA, distal CARGO BRACER occluded) / TBI: 0, absent waveform. There is an occlusion of the distal posterior tibial artery. Dampened, biphasic flow of the proximal and mid posterior tibial artery. Mild to moderate plaque noted in the arteries of the right lower extremity. * Left: * RODOLFO: 1.29 (CARGO BRACER) / TBI: 0, metatarsal amputation. 20-49 % [...] proximal SFA, 138 cm/s. Patency of the CARE MANAGER CNA, profunda, SFA, popliteal artery, CARGO BRACER, SHAMIR, and the DPA. The CARGO BRACER, SHAMIR, and the DPA are all dampenedwith biphasic Doppler waveforms. Mild to moderate plaque noted throughout the arteries of the rightlower extremity. * Left: * 20-49 % stenosis of the profunda, 182 cm/s. Patency of the CARE MANAGER CNA, profunda, SFA, popliteal artery, CARGO BRACER, SHAMIR, and the DPA. The CARGO BRACER, SHAMIR, and the DPA are all dampened with biphasic Doppler waveforms. Mild to moderate plaque noted throughout the arteries of the left lower extremity. Assessment and Plan: Ashley was seen today for peripheral arterial disease (pad). Diagnoses and all orders for this visit: PAD (peripheral artery disease) - [facility] LOWER EXTREMITY ARTERIAL DUPLEX COMPLETE; Future Former smoker-quit 2021 Small vessel disease - [facility] LOWER EXTREMITY ARTERIAL DUPLEX COMPLETE; Future [...] is currently on aspirin and Plavix. Her beading machine operator, Dr. Cleaning, is considering discontinuing her aspirin [...] A letter will be sent to her beading machine operator, Dr. Cleaning, to emphasize the importance of continuing aspirin therapy. Follow-up The patient will follow up in 6 months with an ultrasound. With CITLALLI The provider educated the patient (or legal industrial sales representative) on the use of the ambient listening artificial intelligence tool, [email or web address]. They were informed that this AI tool [...] of such information, the patient (or legal industrial sales representative), and each individual in attendance with the patient, verbally consented to the use of the AI tool. I have reviewed this note and it accurately reflects my work and decisions made during this visit. Signed: Vishnu Penn MD This note was completed using voice recognition technology. Despite the principal technical writer's best efforts to proof read, it [...] would rather you call the office at [phone] and speak with our management team so we may know how to improve. documented in this encounter Plan of Treatment Upcoming Encounters Date Type Department Care Team (Late st Contact Info) Description 06/04/2025 2:15 PM EDT Appointment [facility] [place] [address] [place] [address] Cristi Pelletier, DPJeremi [address] [facility] [address] [place] [address] 11/12/2025 1:30 PM EST Appointment [facility] [address] [place] [address] Drive [address] [place] [address] Nette Jalloh APRN [address] [place] [address] [address] [place] [address] 11/12/2025 2:40 PM EST Office Visit [facility] [address] [place] [address] Nette Jalloh VOCATIONAL TECHNICAL EDUCATION DIRECTOR [address] [place] [address] Scheduled Orders Name Type Priority Associated Diagnoses Order Schedule [facility] LOWER EXTREMITY ARTERIAL DUPLEX COMPLETE Imaging [...] unspecified documented in this encounter Care Teams Mannequin Mold Maker Relationship Specialty Start Date End Date William Hunter MD [address] [place] [address] [place] [id number] PCP - General Internal Medicine-Adolescent Medicine 05/28/23 González Gotti MD [address] [place] [address] [address] [place], [place] [id number] Consulting Physician Internal Medicine - Clinical Cardiac Electrophysiology 04/05/17 Cristi Cleaning MD [address] [place] [address] [address] [place], [place] [id number] Physician Internal Medicine-Cardiovascular Disease 04/05/17 documented as of this encounter
--- OUTSIDE RECORDS SUMMARY | 2025-04-16 14:30 | XMS_ITS | Encounter Summary ---
Author Organization [place] [address] Care Team Providers Care Director Food And Beverage Name Role Phone González Gotti MD Unavailable [phone] Cristi Cleaning MD Unavailable [phone] William Hunter MD Primary Care Provider [phone] Reason for Referral * (Routine) - Pending Review Specialty Diagnoses / Procedures Referred By Brian villavicencio Referred To Contact Diagnoses 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) Pressure ulcer of left heel, stage 4 (HCC) Procedures AMB [facility] PRIMARY DRESSING Cristi Pelletier DPM [address] [place] [phone] Phone: tel: fax: Referral ID Status Reason Start Date Expiration Date V isits Requested Visits Authorized [id number] Pending Review 04/17/2025 04/17/2026 1 1 * In Office Procedure (Routine) - Pending Review Specialty Diagnoses / Procedures Referred By Brian villavicencio Referred To Contact Diagnoses 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) Pressure ulcer of left heel, stage 4 (HCC) Procedures OR DEBRIDEMENT SUBCUTANEOUS TISSUE 1ST 20 SQ CM/< Cristi Pelletier DPM [address] [address] Phone: tel: fax: Referral ID Status Reason Start Date Expiration Date V isits Requested Visits Authorized [id number] Pending Review 04/16/2025 04/16/2026 1 1 Reason [...] WND EA ADDL 20 SQ CM/PRT THEREOF [facility] Wound Care Center [place] [address] [place] [address] Phone: tel: fax: Referral ID Status Reason Start Date Expiration Date Visits Requested Visits Authorized [id number] Authorization Not Needed Specialty Services Required 5 01/08/2026 99 99 Encounter Details Date Type Department Care Team (Latest Contact Info) Description 04/16/2025 2:30 PM EDT - 04/16/2025 11:59 PM EDT Hospital Encounter [facility] Wound Care Center [place] [address] [place] [place] [address] Cristi Pelletier DPM [address] [address] Atherosclerosis of artery of extremity [...] 0.6 oz pur e alcohol) [facility] Utilities Answer Date Recorded In [...] Date Recorded PHQ-2 Total Score 0 12/28/2024 [facility]at [facility] - [...] things needed for daily living? No 05/29/2023 [facility] IP Transportation Answer D ate [...] days. fluticasone propionate (FLONASE) 50 mcg/actuation Nasl [place], Suspension 1 spay each nostril twice daily [...] EDT 06/11/2023 oxymetazoline (AFRIN) 0.05 % Nasl [place], Non-Aerosol 1 [place] by Nasal route as needed for Congestion [...] Bradycardia CAD (coronary artery disease) Cardiac pacemaker PJ Dual PPM 11/05/2016 - Dr. Cleaning Chronic systolic heart failure ([facility]) COPD (chronic obstructive pulmonary disease) ([facility]) Depression with anxiety Emphysema, unspecified ([facility]) Essential hypertension Headache Heartburn History of cardiac cath 03/23/2017 Stent placed in Right leg 03/23/2017 HLD (hyperlipidemia) Hypertension [place] (myocardial infarction) ([facility]) 06/2016 Pacemaker Post-operative nausea and vomiting Sinus node dysfunction ([facility]) PJ Dual PPM 11/05/2016 - Dr. Cleaning STEMI (ST elevation myocardial infarction) ([facility]) STEMI with 3 NORI to RCA Systolic heart failure ([facility]) 02/2017 ECHO, EF 25% Past Surgical History: Procedure Laterality Date CARDIAC CATHETERIZATION Right 03/23/2017 stent placed in right leg CARDIAC PACEMAKER PLACEMENT 11/05/2016 SJ Dual PPM COLONOSCOPY CORONARY ANGIOPLASTY WITH STENT PLACEMENT 06/2016 x3 DEBRIDEMENT Left 05/19/2023 .; Surgeon: Jabari Hill DPM; Location: [facility] MAIN OR; Service: Orthopedics FEMUR FRACTURE SURGERY Right right femur fx repair FOOT SURGERY FOOT SURGERY Left 12/23/2022 Left foot heel and second and third toe debridement with application of skin graft substitute. ; Surgeon: Jabari Hill DPM; Location: [facility] MAIN OR; Service: Orthopedics FOOT SURGERY Left 02/10/2023 Surgeon: Jabari Hill DPM; Location: [facility] MAIN OR; Service: Orthopedics FOOT SURGERY Left 06/06/2023 left FOOT TRANSMETATARSAL amputation; Surgeon: Jabari Hill DPM; Location: [facility] MAIN OR; Service: Podiatry HAMMER TOE SURGERY Left 06/15/2022 Left foot Correction of hammer toe deformity with arthroplasty second and third toe. Left foot Application of skin graft substitute.; Surgeon: Jabari Hill DPM; Location: [facility] MAIN OR; Service: Podiatry HIP SURGERY IR [...] IR REVAS FEM POP ART UNILAT W MOLD REPAIRER 03/13/2022 IR REVAS FEM POP ART UNILAT W MOLD REPAIRER 03/13/2022 Kashif Wong MD EDG IR IR REVAS FEM POP ART UNILAT W MOLD REPAIRER 06/02/2023 IR REVAS FEM POP ART UNILAT W MOLD REPAIRER 06/02/2023 Vishnu Penn MD EDG IR IR REVAS FEM POP ART UNILAT W MOLD REPAIRER 12/28/2024 IR REVAS FEM POP ART UNILAT W MOLD REPAIRER 12/28/2024 Vishnu Penn MD EDG IR IR [...] 05/19/2023 .; Surgeon: Jabari Hill DPM; Location: [facility] MAIN OR; Service: Orthopedics SKIN GRAFT Left 06/15/2022 Surgeon: Jabari Hill DPM; Location: [facility] MAIN OR; Service: Podiatry SKIN GRAFT Left 12/23/2022 . ; Surgeon: Jabari Hill DPM; Location: [facility] MAIN OR; Service: Orthopedics SKIN GRAFT 02/10/2023 Surgeon: Jabari Hill DPM; Location: [facility] MAIN OR; Service: Orthopedics TOE AMPUTATION Left 02/10/2023 Left foot second toe amputation, Left foot excisional debridement with application of skin graft substitute; Surgeon: Jabari Hill DPM; Location: [facility] MAIN OR; Service: Orthopedics TOE AMPUTATION Left 05/19/2023 Left foot, amputation of third toe. Left foot, wound debridment application. Left foot, skin graft substitute. Left foot wound debridment closure.; Surgeon: Jabari Hill DPM; Location: [facility] MAIN OR; Service: Orthopedics Current Outpatient Medications [...] days. fluticasone propionate (FLONASE) 50 mcg/actuation Nasl [place], Suspension 1 spay each nostril twice daily [...] Tablet 0 oxymetazoline (AFRIN) 0.05 % Nasl [place], Non-Aerosol 1 [place] by Nasal route as needed for Congestion [...] Myalgia Ezetimibe Myalgia Rosuvastatin Myalgia Simvastatin Myalgia Goldiff-Gxv-Iku Reductase Inhibitors Other (See Comments) Joint pain [...] artery of extremity with ulceration (HCC) - OR DEBRIDEMENT SUBCUTANEOUS TISSUE 1ST 20 SQ CM/< - AMB [facility] PRIMARY DRESSING Pressure ulcer of left heel, stage 4 (HCC) - OR DEBRIDEMENT SUBCUTANEOUS TISSUE 1ST 20 SQ [...] 4x4, roll gauze, every other day. 03/26 [facility] has been contacted to obtain your wound [...] feel free to reach out to our intensive care unit registered nurse, Hanna Riggs at [phone] for any discussion. WHO TO CALL FOR PROBLEMS: Please call the OP wound care center with any problems or issues you may have after your visit or though the week. Each patient is assigned a case making machine operator who can assist with issues you may be having. Individual office numbers are listed below. Press 1 for immediate or schedule needs, press 2 for the nursing line. The nurse line is for non-emergent needs and will be answered within 24 hours duringbusiness days. If you have a more immediate concern, press option #1. Office numbers: [phone] [place]t. ClaudioUytsvj-[phone] Ashley- [phone] Our offices do not have an on-call provider. If you have emergent needs after hours please contact your primary care provider. You may also utilize the [facility] Nurse NOW Helpline: [phone]-NOW for after-hours needs to get in contact with a nurse for assistance. documented in this encounter Plan of Treatment Upcoming Encounters Date Type Department Care Team (Late st Contact Info) Description 06/04/2025 2:15 PM EDT Appointment [facility] Wound Care Center [address] [place] [address] Cristi Pelletier, DPM [address] [facility] [address] [place] [address] 11/12/2025 1:30 PM EST Appointment [facility] [address] [place] [address] Drive [address] [place] [address] Nette Jalloh APRN [address] [place] [address] [address] [place] [address] 11/12/2025 2:40 PM EST Office Visit [facility] [address] [place] [address] MayNette APRN [address] [place] [address] Scheduled Orders Name Type Priority Associated Diagnoses Orde r Schedule OR DEBRIDEMENT SUBCUTANEOUS TISSUE 1ST 20 SQ CM/< OR Charge Routine Atherosclerosis of artery of extremity [...] % ointment Topical, ONCE, 1 dose, On 04/16/25 at 1500, Application site: left foot Given 04/16/2025 2:54 PM EDT documented in this encounter Orders Medications Ordered That Daniel ht Not Have Been Administered Count Last Ordered Date First Ordered Date lidocaine (XYLOCAINE) 5 % ointment 1 2024 Nursing Count Last Ordered Date First Orde red Date AMB [facility] PRIMARY DRESSING 1 04/17/2025 documented in this encounter Care Teams Director Food And Beverage Relationship Specialty Start Date End Date William Hunter MD [address] [facility] [address] [place] [address] PCP - General Internal Medicine-Adolescent Medicine 05/28/23 González Gotti MD [address] [place] [address] Consulting Physician Internal Medicine - Clinical Cardiac Electrophysiology 04/05/17 Cristi Cleaning MD [address] [place] [address] Physician Internal Medicine-Cardiovascular Disease 04/05/17 documented as of this encounter
--- OUTSIDE RECORDS SUMMARY | 2025-04-23 14:30 | XMS_ITS | Encounter Summary ---
Author Organization [place] [address] Care Team Providers Care Special Equipment Technician Name Role Phone González Gotti MD Unavailable [phone] Cristi Cleaning MD Unavailable [phone] William Hunter MD Primary Care Provider [phone] Reason for Referral * In Office Procedure (Routine) - Pending Review Specialty Diagnoses / Procedures Referred By Contac t Referred To Contact Diagnoses Pressure ulcer of left heel, stage 4 (HCC) Procedures TN DEBRIDEMENT SUBCUTANEOUS TISSUE 1ST 20 SQ CM/< Jabari Corado Jr., MD [address] [place] [address] [address] [place] [address] Phone: tel: fax: Referral ID Status Reason Start Date Expiration Date V isits Requested Visits Authorized [id number] Pending Review 04/23/2025 04/23/2026 1 1 * (Routine) - Pending Review Specialty Diagnoses / Procedures Referred By Contac t Referred To Contact Diagnoses Pressure ulcer of left heel, stage 4 (HCC) 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) Procedures [facility] Jabari Corado Jr., MD [address] [place] [address] [address] [place] [address] Phone: tel: fax: Referral ID Status Reason Start Date Expiration Date V isits Requested Visits Authorized [id number] Pending Review 04/23/2025 04/23/2026 1 1 Reason [...] WND EA ADDL 20 SQ CM/PRT THEREOF [facility] [place] [address] [place] [address] Phone: tel: fax: Referral ID Status Reason Start Date Expiration Date Visits Requested Visits Authorized [id number] Authorization Not Needed Specialty Services Required 5 01/08/2026 99 99 Encounter Details Date Type Department Care Team (Latest Contact Info) Description 04/23/2025 2:30 PM EDT - 04/23/2025 11:59 PM EDT Hospital Encounter [facility] [address] [place] [address] Jabari Corado Jr., MD [address] [place] [address] [address] [place] [address] Pressure ulcer of left heel, stage 4 [...] drink = 0.6 oz pur e alcohol) [facility] Utilities Answer Date Recorded In the past 12 months has e collegefeed, gas, oil, or water company threatened to shut off services in your home? No 12/28/2024 Overall Financial Resource Strain (CARDIA) Answe r Date Recorded How hard is it for you to pa y for the very basics like food, housing, medical care, and heating? Not hard at all 12/28/2024 PHQ-2 Answer Date Recorded PHQ-2 Total Score 0 12/28/2024 [facility] - Occupational Stress Questionnaire Answer Date [...] things needed for daily living? No 05/29/2023 [facility] IP Transportation Answer D ate [...] days. fluticasone propionate (FLONASE) 50 mcg/actuation Nasl [place], Suspension 1 spay each nostril twice daily [...] EDT 06/11/2023 oxymetazoline (AFRIN) 0.05 % Nasl [place], Non-Aerosol 1 [place] by Nasal route as needed for Congestion [...] Cleaning Chronic systolic heart failure ([facility]) COPD (chronic obstructive pulmonary disease) ([facility]) Depression with anxiety Emphysema, unspecified ([facility]) Essential hypertension Headache Heartburn History of cardiac cath 03/23/2017 Stent placed in Right leg 03/23/2017 HLD (hyperlipidemia) Hypertension [place] (myocardial infarction) ([facility]) 06/2016 Pacemaker Post-operative nausea and vomiting Sinus node dysfunction ([facility]) 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 Cleaning STEMI (ST elevation myocardial infarction) ([facility]) STEMI with 3 NORI to RCA Systolic heart failure ([facility]) 02/2017 ECHO, EF 25% Past Surgical History: Procedure Laterality Date CARDIAC CATHETERIZATION Right 03/23/2017 stent placed in right leg CARDIAC PACEMAKER PLACEMENT 11/05/2016 SJM Dual PPM COLONOSCOPY CORONARY ANGIOPLASTY WITH STENT PLACEMENT 06/2016 x3 DEBRIDEMENT Left 05/19/2023 .; Surgeon: Jabari Hill DPM; Location: [facility] MA[facility] OR; Service: Orthopedics FEMUR FRACTURE SURGERY Right right femur fx repair FOOT SURGERY FOOT SURGERY Left 12/23/2022 Left foot heel and second and third toe debridement with application of skin graft substitute. ; Surgeon: Jabari Hill DPM; Location: [facility] OR; Service: Orthopedics FOOT SURGERY Left 02/10/2023 Surgeon: Jabari Hill DPM; Location: [facility] OR; Service: Orthopedics FOOT SURGERY Left 06/06/2023 left FOOT TRANSMETATARSAL amputation; Surgeon: Jabari Hill DPM; Location: [facility] MAIN OR; Service: Podiatry HAMMER TOE SURGERY Left 06/15/2022 Left foot Correction of hammer toe deformity with arthroplasty second and third toe. Left foot Application of skin graft substitute.; Surgeon: Jabari Hill DPM; Location: [facility] OR; Service: Podiatry HIP SURGERY IR [...] IR REVAS FEM POP ART UNILAT W ELECTRICAL CAD TECHNICIAN 03/13/2022 IR REVAS FEM POP ART UNILAT W ELECTRICAL CAD TECHNICIAN 03/13/2022 Kashif Wong MD [facility] IR IR REVAS FEM POP ART UNILAT W ELECTRICAL CAD TECHNICIAN 06/02/2023 IR REVAS FEM POP ART UNILAT W ELECTRICAL CAD TECHNICIAN 06/02/2023 Vishnu Penn MD [facility]G IR IR REVAS FEM POP ART UNILAT W ELECTRICAL CAD TECHNICIAN 12/28/2024 IR REVAS FEM POP ART UNILAT W ELECTRICAL CAD TECHNICIAN 12/28/2024 Vishnu Penn MD [facility] IR IR [...] 05/19/2023 .; Surgeon: Jabari Hill DPM; Location: [facility] OR; Service: Orthopedics SKIN GRAFT Left 06/15/2022 Surgeon: Jabari Hill DPM; Location: [facility] OR; Service: Podiatry SKIN GRAFT Left 12/23/2022 . ; Surgeon: Jabari Hill DPM; Location: [facility] OR; Service: Orthopedics SKIN GRAFT 02/10/2023 Surgeon: Jabari Hill DPM; Location: [facility] OR; Service: Orthopedics TOE AMPUTATION Left 02/10/2023 Left foot second toe amputation, Left foot excisional debridement with application of skin graft substitute; Surgeon: Jabari Hill DPM; Location: [facility]; Service: Orthopedics TOE AMPUTATION Left 05/19/2023 Left foot, amputation of third toe. Left foot, wound debridment application. Left foot, skin graft substitute. Left foot wound debridment closure.; Surgeon: Jabari Hill DPM; Location: [facility] OR; Service: Orthopedics Current Outpatient Medications [...] days. fluticasone propionate (FLONASE) 50 mcg/actuation Nasl [place], Suspension 1 spay each nostril twice daily [...] Chest pain. oxymetazoline (AFRIN) 0.05 % Nasl [place], Non-Aerosol 1 [place] by Nasal route as needed for Congestion [...] Myalgia Ezetimibe Myalgia Rosuvastatin Myalgia Simvastatin Myalgia Khojgeo-Ieg-Bnp Reductase Inhibitors Other (See Comments) Joint pain [...] left heel, stage 4 (HCC) - [facility] Atherosclerosis of artery of [...] 4x4, roll gauze, every other day. 03/26 [facility] has been contacted to obtain your [...] to our community administrator, Hanna Riggs at [phone] for any discussion. WHO TO CALL FOR PROBLEMS: Please call the OP wound care center with any problems or issues you may have after your visit or though the week. Each patient is assigned a assistant case manager who can assist with issues you may be having. Individual office numbers are listed below. Press 1 for immediate or schedule needs, press 2 for the nursing line. The nurse line is for non-emergent needs and will be answered within 24 hours duringbusiness days. If you have a more immediate concern, press option #1. Office numbers: [phone] Ft. ClaudioRdlaia-[phone] [place]- [phone] Our offices do not have an on-call provider. If you have emergent needs after hours please contact your primary care provider. You may also utilize the [facility] Nurse NOW Helpline: 2-037-2WWE-NOW for after-hours needs to get in contact with a nurse for assistance. 03/26 [facility] has been contacted to obtain your wound [...] to our community administrator, Hanna Riggs at [phone] for any discussion. WHO TO CALL FOR PROBLEMS: Please call the OP wound care center with any problems or issues you may have after your visit or though the week. Each patient is assigned a assistant case manager who can assist with issues you may be having. Individual office numbers are listed below. Press 1 for immediate or schedule needs, press 2 for the nursing line. The nurse line is for non-emergent needs and will be answered within 24 hours duringbusiness days. If you have a more immediate concern, press option #1. Office numbers: Rfqlyjgxj-[phone] Ft. ClaudioRkqyws-[phone] [place]- [phone] Our offices do not have an on-call provider. If you have emergent needs after hours please contact your primary care provider. You may also utilize the [facility] Nurse NOW Helpline: 6-190-5JMQ-NOW for after-hours needs to get in contact [...] Info) Description 06/04/2025 2:15 PM EDT Appointment [facility] [place] [address] [place] [place] [address] Cristi Pelletier, DPM [address] [address] 11/12/2025 1:30 PM EST Appointment [facility] [address] [place] [address] [address] [place] [address] January, Nette Rand [address] [address] 11/12/2025 2:40 PM EST Office Visit [facility] [address] [place] [address] [address] [place] [address] [place]ette [address] [address] Scheduled Orders Name Type Priority Associated Diagnoses Orde r Schedule TN DEBRIDEMENT SUBCUTANEOUS TISSUE 1ST 20 SQ CM/< TN Charge Routine Pressure ulcer of left heel, [...] 04/23/2025 documented in this encounter Care Teams Special Equipment Technician Relationship Specialty Start Date End Date William Hunter MD [facility] [place] [phone] PCP - General Internal Medicine-Adolescent Medicine 05/28/23 González Gotti MD [address] [place] [address] [place] [address] Consulting Physician Internal Medicine - Clinical Cardiac Electrophysiology 04/05/17 Cristi Cleaning MD [address] [place] [address] [place] [address] Physician Internal Medicine-Cardiovascular Disease 04/05/17 documented as of this encounter
--- OUTSIDE RECORDS SUMMARY | 2025-05-07 13:45 | XMS_ITS | Encounter Summary ---
Author Organization [place] [address] Care Team Providers Care Rn Lab Name Role Phone González Gotti MD Unavailable [phone] Cristi Cleaning MD Unavailable [phone] William Hunter MD Primary Care Provider [phone] Reason for Referral * In Office Procedure (Routine) - Pending Review Specialty Diagnoses / Procedures Referred By Contac t Referred To Contact Diagnoses Pressure ulcer of left heel, stage 4 (HCC) Procedures NC DEBRIDEMENT MUSCLE &/FASCIA 1ST 20 SQ CM/< Cristi Pelletier DPM [address] [place] [id number] Phone: tel: fax: Referral ID Status Reason Start Date Expiration Date V isits Requested Visits Authorized [id number] Pending Review 05/12/2025 05/12/2026 1 1 * (Routine) - Pending Review Specialty Diagnoses / Procedures Referred By Contac t Referred To Contact Diagnoses Pressure ulcer of left heel, stage 4 (HCC) Procedures [facility] PRIMARY DRESSING Cristi Pelletier DPM [address] [address] Phone: tel: fax: Referral ID Status Reason Start Date Expiration Date V isits Requested Visits Authorized [id number] Pending Review 05/07/2025 05/07/2026 1 1 Reason for Visit * Reason Comments Wound Check * Consultation (Routine) - Authorization Not Needed Specialty Diagnoses / Procedures Referred By Brian t Referred To Contact Wound Care Diagnoses Wound Care Procedures NC DEBRIDEMENT SUBCUTANEOUS TISSUE 1ST 20 SQ CM/< NC DEBRIDEMENT MUSCLE &/FASCIA 1ST 20 SQ CM/< NC DEBRIDEMENT BONE 1ST 20 SQ CM/< NC DEBRIDEMENT SUBCUTANEOUS TISSUE EA ADDL 20 SQ CM NC DEBRIDEMENT MUSCLE &/FASCIA EA ADDL 20 SQ CM NC DEBRIDEMENT BONE EACH ADDITIONAL 20 SQ CM NC DEBRIDEMENT OPEN WOUND FIRST 20 SQ CM/< NC DEBRIDEMENT OPN WND EA ADDL 20 SQ CM/PRT THEREOF [facility] [address] [facility] [place] [address] Phone: tel: fax: Referral ID Status Reason Start Date Expiration Date Visits Requested Visits Authorized [id number] Authorization Not Needed Specialty Services Required 5 01/08/2026 99 99 Encounter Details Date Type Department Care Team (Latest Contact Info) Description 05/07/2025 1:45 PM EDT - 05/07/2025 11:59 PM EDT Hospital Encounter [facility] [address] [place] [address] Cristi Pelletier DPM [address] [address] Pressure ulcer of left heel, stage 4 (HCC) (Primary Dx) Discharge Disposition: Home or Self Care Social History Tobacco Use Types Packs/Day Years Used Date Smoking Tobacco: Former Cigarettes 0.3 40 0 12/26/1981 - 12/26/2021 Passive Smoke Exposure: Past Smokeless Tobacco: Never Alcohol Use Standard Drinks/Week Comments Not Currently 0 (1 standard drink = 0.6 oz pur e alcohol) [facility] Utilities Answer Date Recorded In the past 12 months has e [employer], gas, oil, or water company threatened to shut off services in your home? No 12/28/2024 Overall Financial Resource Strain (CARDIA) Answe r Date Recorded How hard is it for you to pa y for the very basics like food, housing, medical care, and heating? Not hard at all 12/28/2024 PHQ-2 Answer Date Recorded PHQ-2 Total Score 0 12/28/2024 [facility] - [...] things needed for daily living? No 05/29/2023 [facility] IP Transportation Answer D ate Recorded In [...] Sign Reading Time Taken Comments Blood Pressure 143/89 05/07/2025 2:11 PM EDT Pulse 70 05/07/2025 2:11 PM EDT Temperature 36.3 C (97.4 F) 05/07/2025 2:11 PM EDT Respiratory Rate - - Oxygen Saturation [...] days. fluticasone propionate (FLONASE) 50 mcg/actuation Nasl [place], Suspension 1 spay each nostril twice daily [...] EDT 06/11/2023 oxymetazoline (AFRIN) 0.05 % Nasl [place], Non-Aerosol 1 [place] by Nasal route as needed for Congestion [...] Progress Notes * Cristi Pelletier DPM - 05/07/2025 1:45 PM EDT Date of Visit:05/07/2025 Progress Note HPI Ashley Ding is a 59 y.o. year old female patient who presents today for wound evaluation and follow-up. Ulcer with slow improvement Patient denies any fever, chills, nausea or vomiting Daily dressing change Past Medical History: Diagnosis Date Anesthesia complication only with phenergan, alarming how long it takes her to wake up Asthma Bradycardia CAD (coronary artery disease) Cardiac pacemaker [facility] Dual PPM 11/05/2016 - Dr. Cleaning Chronic systolic heart failure ([facility]) COPD (chronic obstructive pulmonary disease) ([facility]) Depression with anxiety Emphysema, unspecified ([facility]) Essential hypertension Headache Heartburn History of cardiac cath 03/23/2017 Stent placed in Right leg 03/23/2017 HLD (hyperlipidemia) Hypertension CA (myocardial infarction) ([facility]) 06/2016 Pacemaker Post-operative nausea and vomiting Sinus node dysfunction ([facility]) [facility] Dual PPM 11/05/2016 - Dr. Cleaning STEMI (ST elevation myocardial infarction) ([facility]) STEMI with 3 NORI to RCA Systolic heart failure ([facility]) 02/2017 ECHO, EF 25% Past Surgical History: Procedure Laterality Date CARDIAC CATHETERIZATION Right 03/23/2017 stent placed in right leg CARDIAC PACEMAKER PLACEMENT 11/05/2016 [facility] Dual PPM COLONOSCOPY CORONARY ANGIOPLASTY WITH STENT PLACEMENT 06/2016 x3 DEBRIDEMENT Left 05/19/2023 .; Surgeon: Jabari Hill DPM; [facility]; Service: Orthopedics FEMUR FRACTURE SURGERY Right right femur fx repair FOOT SURGERY FOOT SURGERY Left 12/23/2022 Left foot heel and second and third toe debridement with application of skin graft substitute. ; Surgeon: Jabari Hill DPM; [facility]; Service: Orthopedics FOOT SURGERY Left 02/10/2023 Surgeon: Jabari Hill DPM; [facility]; Service: Orthopedics FOOT SURGERY Left 06/06/2023 left FOOT TRANSMETATARSAL amputation; Surgeon: Jabari Hill DPM; Location: [facility] MAIN OR; Service: Podiatry HAMMER TOE SURGERY Left 06/15/2022 Left foot Correction of hammer toe deformity with arthroplasty second and third toe. Left foot Application of skin graft substitute.; Surgeon: Jabari Hill DPM; [facility]; Service: Podiatry HIP [...] IR REVAS FEM POP ART UNILAT W TREASURER 03/13/2022 IR REVAS FEM POP ART UNILAT W TREASURER 03/13/2022 Kashif Wong MD [facility] IR IR REVAS FEM POP ART UNILAT W TREASURER 06/02/2023 IR REVAS FEM POP ART UNILAT W TREASURER 06/02/2023 Vishnu Penn MD [facility] IR IR REVAS FEM POP ART UNILAT W TREASURER 12/28/2024 IR REVAS FEM POP ART UNILAT W TREASURER 12/28/2024 Vishnu Penn MD [facility] IR IR [...] 05/19/2023 .; Surgeon: Jabari Hill DPM; [facility]; Service: Orthopedics SKIN GRAFT Left 06/15/2022 Surgeon: Jabari Hill DPM; [facility]; Service: Podiatry SKIN GRAFT Left 12/23/2022 . ; Surgeon: Jabari Hill DPM; [facility]; Service: Orthopedics SKIN GRAFT 02/10/2023 Surgeon: Jabari Hill DPM; [facility]; Service: Orthopedics TOE AMPUTATION Left 02/10/2023 Left foot second toe amputation, Left foot excisional debridement with application of skin graft substitute; Surgeon: Jabari Hill DPM; [facility]; Service: Orthopedics TOE AMPUTATION Left 05/19/2023 Left foot, amputation of third toe. Left foot, wound debridment application. Left foot, skin graft substitute. Left foot wound debridment closure.; Surgeon: Jabari Hill DPM; [facility]; Service: Orthopedics Current [...] days. fluticasone propionate (FLONASE) 50 mcg/actuation Nasl [place], Suspension 1 spay each nostril twice daily [...] Chest pain. oxymetazoline (AFRIN) 0.05 % Nasl [place], Non-Aerosol 1 [place] by Nasal route as needed for Congestion [...] Myalgia Ezetimibe Myalgia Rosuvastatin Myalgia Simvastatin Myalgia Imosvkd-Tzz-Wlr Reductase Inhibitors Other (See Comments) Joint pain Codeine Itching nausea Hydrocodone Itching nausea Phenergan [Promethazine] Other (See Comments) Made legs restless And also very sleepy ROS See HPI for further details. Relevant review of systems otherwise negative. Physical Exam Vitals: 05/07/25 1411 BP: 143/89 Pulse: 70 Temp: 97.4 ??F (36.3 ??C) TempSrc: Forehead [...] left heel, stage 4 (HCC) - [facility]B [facility] PRIMARY DRESSING - NC DEBRIDEMENT MUSCLE &/FASCIA 1ST 20 SQ CM/< [...] to continue unabated. Discussed measures to offload Sharp excisional debridement left heel utilizing curette down to and including subcutaneous tissue and fascia <20 sq cm with bleeding and subsequent hemostasis. Patient tolerated the procedure well. No significant episodes of pain. No adverse events. No new Rx or orders this evaluation documented in this encounter Miscellaneous Notes * Patient Instructions - Rosmery Cotto RN - 05/07/2025 1:45 PM EDT HOME-CARE INSTRUCTIONS FOLLOWING YOUR WOUND [...] the W[facility] Care Center in [address] Pelletier Left heel- collagen, adaptic overlay, 4x4, roll gauze, every other day. 03/26 [facility] has been contacted to obtain your wound [...] free to reach out to our community relations specialist, Hanna Riggs at [phone] for any discussion. WHO TO CALL FOR PROBLEMS: Please call the OP wound care center with any problems or issues you may have after your visit or though the week. Each patient is assigned a rn case manager hospice who can assist with issues you may be having. Individual office numbers are listed below. Press 1 for immediate or schedule needs, press 2 for the nursing line. The nurse line is for non-emergent needs and will be answered within 24 hours duringbusiness days. If you have a more immediate concern, press option #1. Office numbers: [phone] [place]-[phone] [place]- [phone] Our offices do not have an on-call provider. If you have emergent needs after hours please contact your primary care provider. You may also utilize the [facility] Nurse NOW Helpline: 8-450-8ZNM-NOW for after-hours needs to get in contact with a nurse for assistance. 03/26 [facility] has been contacted to obtain your wound [...] free to reach out to our community relations specialist, Hanna Riggs at [phone] for any discussion. WHO TO CALL FOR PROBLEMS: Please call the OP wound care center with any problems or issues you may have after your visit or though the week. Each patient is assigned a rn case manager hospice who can assist with issues you may be having. Individual office numbers are listed below. Press 1 for immediate or schedule needs, press 2 for the nursing line. The nurse line is for non-emergent needs and will be answered within 24 hours duringbusiness days. If you have a more immediate concern, press option #1. Office numbers: [phone] [place]-[phone] [place]- [phone] Our offices do not have an on-call provider. If you have emergent needs after hours please contact your primary care provider. You may also utilize the [facility] Nurse NOW Helpline: 4-185-0RFI-NOW for after-hours needs to get in contact with a nurse for assistance. documented in this encounter Plan of Treatment Upcoming Encounters Date Type Department Care Team (Late st Contact Info) Description 06/04/2025 2:15 PM EDT Appointment [facility] [place] [address] [place] [address] Cristi Pelletier, DPJeremi [address] [address] 11/12/2025 1:30 PM EST Appointment [facility] [address] [facility] [address] [place] [address] JanuaryNette APRN [address] [place] [address] 11/12/2025 2:40 PM EST Office Visit [facility] [address] [facility] [address] [place] [address] JanuaryNette APRN [address] [place], [place] [id number] Scheduled Orders Name Type Priority Associated Diagnoses Orde r Schedule NC DEBRIDEMENT MUSCLE &/FASCIA 1ST 20 SQ CM/< NC Charge Routine Pressure ulcer of left heel, stage 4 (HCC) Ordered: 05/12/2025 documented as of this encounter Goals Goal [...] % ointment Topical, ONCE, 1 dose, On Wed05/07/25 at 1430, Application site: left foot Given 05/07/2025 2:17 PM EDT documented in this encounter Orders Medications Ordered That Daniel ht Not Have Been Administered Count Last Ordered Date First Ordered Date lidocaine (XYLOCAINE) 5 % ointment 1 2024 Nursing Count Last Ordered Date First Orde red Date AMB [facility] PRIMARY DRESSING 1 05/07/2025 documented in this encounter Care Teams Rn Lab Relationship Specialty Start Date End Date William Hunter MD [address] [place] [address] [address] [place] [address] PCP - General Internal Medicine-Adolescent Medicine 05/28/23 González Gotti MD [address] [place] [address] Consulting Physician Internal Medicine - Clinical Cardiac Electrophysiology 04/05/17 Cristi Cleaning MD [address] [place] [address] [place] [address] Physician Internal Medicine-Cardiovascular Disease 04/05/17 documented as of this encounter
--- OUTSIDE RECORDS SUMMARY | 2025-05-14 14:44 | XMS_ITS | Encounter Summary ---
Author Organization [place] [address] Care Team Providers Care Turn Out Name Role Phone González Gotti MD Unavailable [phone] Cristi Cleaning MD Unavailable [phone] William Hunter MD Primary Care Provider [phone] Reason for Referral * (Routine) - Pending Review Specialty Diagnoses / Procedures Referred By Contac t Referred To Contact Diagnoses Pressure ulcer of left heel, stage 4 (HCC) Procedures AMB [facility] PRIMARY DRESSING Cristi Pelletier DPM [address] [address] Phone: tel: fax: Referral ID Status Reason Start Date Expiration Date V isits Requested Visits Authorized [id number] Pending Review 05/15/2025 05/15/2026 1 1 Reason for Visit * Reason [...] WND EA ADDL 20 SQ CM/PRT THEREOF [facility] [address] [place] [address] Phone: tel: fax: Referral ID Status Reason Start Date Expiration Date Visits Requested Visits Authorized [id number] Authorization Not Needed Specialty Services Required 5 01/08/2026 99 99 Encounter Details Date Type Department Care Team (Latest Contact Info) Description 05/14/2025 2:44 PM EDT - 05/14/2025 11:59 PM EDT Hospital Encounter [facility] [address] [place] [address] Cristi Pelletier, DPM [address] [address] Atherosclerosis of artery of extremity [...] drink = 0.6 oz pur e alcohol) [facility] Utilities Answer Date Recorded In the [...] Date Recorded PHQ-2 Total Score 0 12/28/2024 [facility] [place] [facility] - Occupational Stress [...] things needed for daily living? No 05/29/2023 [facility] IP [...] Sign Reading Time Taken Comments Blood Pressure 128/82 05/14/2025 2:51 PM EDT Pulse 79 05/14/2025 2:51 PM EDT Temperature 36.7 C (98 F) 05/14/2025 2:51 PM EDT Respiratory Rate 16 05/14/2025 2:51 PM EDT Oxygen Saturation - - Inhaled [...] Mcneill RN * Does this person have difficulty [...] days. fluticasone propionate (FLONASE) 50 mcg/actuation Nasl Mullan, Suspension 1 spay each nostril twice daily [...] EDT 06/11/2023 oxymetazoline (AFRIN) 0.05 % Nasl Mullan, Non-Aerosol 1 [place] by Nasal route as needed for Congestion [...] Patient Instructions - Balbina Tong RN - 05/14/2025 3:15 PM EDT HOME-CARE INSTRUCTIONS FOLLOWING YOUR [...] up in the Wound Care Center in [address] Pelletier Left heel- collagen, adaptic overlay, 4x4, roll gauze, every other day. 03/26 [facility] [employer] has been contacted to obtain your wound [...] feel free to reach out to our feeder worker power unit operator, Hanna Riggs at [phone] for any discussion. WHO TO CALL FOR PROBLEMS: Please call the OP wound care center with any problems or issues you may have after your visit or though the week. Each patient is assigned a protective services case worker who can assist with issues you may be having. Individual office numbers are listed below. Press 1 for immediate or schedule needs, press 2 for the nursing line. The nurse line is for non-emergent needs and will be answered within 24 hours duringbusiness days. If you have a more immediate concern, press option #1. Office numbers: [phone] [place] ClaudioFoiqyb-[phone] [place]- [phone] Our offices do not have an on-call provider. If you have emergent needs after hours please contact your primary care provider. You may also utilize the [facility] Nurse NOW Helpline: 0-292-2DZQ-NOW for after-hours needs to get in contact with a nurse for assistance. 03/26 [facility] has [facility] contacted to obtain your [...] feel free to reach out to our feeder worker power unit operator, Hanna Riggs at [phone] for any discussion. documented in this encounter Plan of Treatment Upcoming Encounters Date Type Department Care Team (Late st Contact Info) Description 06/04/2025 2:15 PM EDT Appointment [facility] [place] [address] [address] [place] [address] Cristi Pelletier, DPJeremi [address] [facility] [address] [place] [address] 11/12/2025 1:30 PM EST Appointment [facility] [address] [place] [address] [address] [place] [address] Nette Jalloh APRN [address] [place] [address] [address] [place] [address] 11/12/2025 2:40 PM EST Office Visit [facility] [address] [place] [address] Nette Jalloh, IT INFRASTRUCTURE ARCHITECT [address] [place] [address] documented as of this encounter Goals Goal [...] % ointment Topical, ONCE, 1 dose, On 05/14/25 at 1500, Application site: foot Given 05/14/2025 2:57 PM EDT documented in this encounter Orders Medications Ordered That Daniel ht Not Have Been Administered Count Last Ordered Date First Ordered Date lidocaine (XYLOCAINE) 5 % ointment 1 2024 Nursing Count Last Ordered Date First Orde red Date AMB [facility] PRIMARY DRESSING 1 05/15/2025 documented in this encounter Care Teams Turn Out Relationship Specialty Start Date End Date William Hunter MD [address] [place] [address] [place] [address] PCP - General Internal Medicine-Adolescent Medicine 05/28/23 González Gotti MD [address] [place] [address] [place] [address] Consulting Physician Internal Medicine - Clinical Cardiac Electrophysiology 04/05/17 Cristi Cleaning MD [address] [place] [address] [place] [address] Physician Internal Medicine-Cardiovascular Disease 04/05/17 documented as of this encounter
--- OUTSIDE RECORDS SUMMARY | 2025-05-18 16:20 | XMS_ITS | Encounter Summary ---
Author Organization Healthcare Address [address] [place] [address] Care Team Providers Care Road Tester Name Role Phone Fariha Henderson APRN Primary Care Provider [phone] Encounter Details Date Type Department Care Team (Late st Contact Info) Description 02/18/2022 [facility] [address] [place] [address] Jabari Goetz MD [address] [facility] [address] [place] [address] PAD (peripheral artery disease) (CMS/HCC) [...] disease documented in this encounter Care Teams Road Tester Relationship Specialty Start Date End Date Fariha Henderson APRN [address] [place] [address] PCP - General 02/07/21 documented as of this encounter
--- OUTSIDE RECORDS SUMMARY | 2025-05-18 16:20 | XMS_ITS | Clinical Summary ---
Author Organization [facility] Address [address] [place] [address] Phone Care Team Providers Care Fashion Show Director Name Role Phone González Gotti MD Unavailable [phone] Cristi Cleaning MD Unavailable [phone] William Hunter MD Primary Care Provider [phone] Allergies Active Allergy Reactions Criticality Noted Date Comments Atorvastatin Myalgia High 07/01/2023 Codeine Itching Low nausea Ezetimibe Myalgia High 07/01/2023 Hydrocodone Itching Low nausea Promethazine Other (See Comments) Low 06/12/2022 Made legs restless And also very sleepy Rosuvastatin Myalgia High 07/01/2023 Simvastatin Myalgia High 07/01/2023 Fukksmk-Sau-Lyr Reductase Inhibitors Other (See Comments) 01/02/2025 Joint [...] (never picked up), Informant: Self/Patient, Reported on 05/14/2025 fluticasone propionate (FLONASE) 50 mcg/actuation Nasl [place], Suspension 1 spay each nostril twice daily 1 Each 3 3 Active oxymetazoline (AFRIN) 0.05 % Nasl [place], Non-Aerosol 1 [place] by Nasal route as needed for Congestion [...] t be different from the original. 03/05/22 [facility] #[id number] (as expected) Kashif Wong MD Problem Noted [...] situ 12/07/2023 Insomnia 12/07/2023 Kidney stone 12/07/2023 longterm current use of anticoagulant therapy 0 12/07/2023 Neuropathy 12/07/2023 Non-pressure chronic ulcer o f skin of other sites with unspecified severity 12/07/2023 Palpitations 12/07/2023 Atrial fibrillation with rapid ventricular respo nse 12/07/2023 Seasonal allergic rhinitis 12/07/2023 Sinusitis 12/07/2023 Stented coronary artery 12/07/2023 Typical angina 12/07/2023 Ventricular fibrillation 12/07/2023 Ventricular fibrillation seen on filter washer 12/07/2023 Ventricular tachyarrhythmia 12/07/2023 Failed flap 06/28/2023 Skin flap necrosis 06/28/2023 Atherosclerosis of artery of extremity with ulce ration 06/02/2023 PAD (peripheral artery disease) 06/01/2023 S/P foot surgery 06/01/2023 Cellulitis of left lower extremity 05/28/2023 Open wound of left foot 04/26/2023 Overview (04/26/2023): Added automatically from request for surgery [id number] Hammertoe of left foot 06/08/2022 Overview (06/08/2022): Added automatically from request for surgery [id number] Pain in left foot 06/08/2022 Overview (06/08/2022): Added automatically from request for surgery [id number] Gangrene of left foot 06/08/2022 Overview (06/08/2022): Added automatically from request for surgery [id number] Vaping nicotine dependence, non-tobacco product 03/05/2022 COPD [...] (02/08/2023): Added automatically from request for surgery [id number] Osteomyelitis of second toe of left foot 02/05/2023 06/01/2023 Overview (02/05/2023): Added automatically from request for surgery [id number] Atherosclerosis of pilot station ar basia of left lower extremity with ulceration 09/07/2022 06/01/20 23 Atherosclerosis of pilot station ar basia of left lower extremity with gangrene 03/05/2022 06/01/2023 GA (myocardial infarction) 06/27/2016 0 06/01/2023 STEMI (ST elevation myocardial infarction) 06/01/2023 Overview (04/05/2017): STEMI with 3 NORI to RCA Foot ulceration, left, with necrosis of muscle 04/07/2024 Chronic toe ulcer, left, wit h necrosis of bone 06/01/2023 Encounters Date Type Department Care Team Description 05/14/2025 2:44 PM EDT - 05/14/2025 11:59 PM EDT Hospital Encounter [facility] [place] [address] [place] [address] Cristi Pelletier DPM 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) (Primary Dx); Pressure ulcer of left heel, stage 4 (HCC) Discharge Disposition: Home or Self Care 05/07/2025 1:45 PM EDT - 05/07/2025 11:59 PM EDT Hospital Encounter [facility] [place] [address] [place] [address] Cristi Pelletier DPM Pressure ulcer of left heel, stage 4 (HCC) (Primary Dx) Discharge Disposition: Home or Self Care 04/23/2025 2:30 PM EDT - 04/23/2025 11:59 PM EDT Hospital Encounter [facility] [place] [address] [place] [address] Jabari Corado Jr., MD Pressure ulcer of left heel, stage 4 (HCC) (Primary Dx); 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) Discharge Disposition: Home or Self Care 04/16/2025 2:30 PM EDT - 04/16/2025 11:59 PM EDT Hospital Encounter [facility] [place] [address] [place] [address] Cristi Pelletier DPM 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) (Primary Dx); Pressure ulcer of left heel, stage 4 (HCC) Discharge Disposition: Home or Self Care 03/27/2025 8:00 AM EDT Office Visit [facility] [address] [place] [id number] Vishnu Penn MD PAD (peripheral artery disease) (Primary Dx); Former smoker-quit 2021; Small vessel disease 03/26/2025 1:15 PM EDT - 03/26/2025 11:59 PM EDT Hospital Encounter [facility] [place] [address] [place] [address] Cristi Pelletier DPM Pressure ulcer of left heel, stage 4 (HCC) (Primary Dx) Discharge Disposition: Home or Self Care 03/12/2025 1:53 PM EDT - 03/12/2025 11:59 PM EDT Hospital Encounter [facility] [place] [address] [place] [address] Kirt Dolan DPM 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) (Primary Dx); Stage III pressure ulcer of left heel (HCC); PAD (peripheral artery disease) Discharge Disposition: Home or Self Care 02/26/2025 3:15 PM EDT - 02/26/2025 11:59 PM EDT Hospital Encounter [facility] [place] [address] [place] [address] Kirt Dolan DPM Ischemic ulcer of left foot with fat layer exposed (HCC) (Primary Dx); 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); Stage III pressure ulcer of left heel (HCC); PAD (peripheral artery disease); Claudication of right lower extremity Discharge Disposition: Home or Self Care 02/20/2025 12:55 PM EDT - 02/20/2025 11:59 PM EDT Hospital Encounter [facility] [address] [place] [address] Nette Jalloh DWAYNE Rand PAD (peripheral artery disease); Peripheral vascular angioplasty status with implants and grafts Discharge Disposition: Home or Self Care from [...] IR REVAS FEM POP ART UNILAT W DESTINATION SPECIALIST 03/13/2022 IR REVAS FEM POP ART UNILAT W DESTINATION SPECIALIST 03/13/2022 Kashif Wong MD [facility]G IR COLONOSCOPY HAMMER TOE SURGERY 06/15/2022 Foot/Ankle/Left Left foot Correction of hammer toe deformity with arthroplasty second and third toe. Left foot Application of skin graft substitute.; Surgeon: Jabari Hill DPM; Location: [facility]; Service: Podiatry Medical devices from this surgery are in the Medical Devices section. SKIN GRAFT 06/15/2022 Left Surgeon: Jabari Hill DPM; Location: [facility]; Service: Podiatry Medical devices [...] substitute. ; Surgeon: Jabari Hill DPM; Location: [facility]; Service: Orthopedics Medical devices from this surgery are in the Medical Devices section. SKIN GRAFT 12/23/2022 Left . ; Surgeon: Jabari Hill DPM; Location: [facility]; Service: Orthopedics Medical devices from this surgery are in the Medical Devices section. TOE AMPUTATION 02/10/2023 Foot/Ankle/Left Foot/Ankle/Left Left foot second toe amputation, Left foot excisional debridement with application of skin graft substitute; Surgeon: Jabari Hill DPM; Location: [facility]; Service: Orthopedics Medical devices from this surgery are in the Medical Devices section. FOOT SURGERY 02/10/2023 Foot/Ankle/Left Surgeon: Jabrai Hill DPM; Location: [facility]; Service: Orthopedics Medical devices from this surgery are in the Medical Devices section. SKIN GRAFT 02/10/2023 Surgeon: Jabari Hill DPM; Location: [facility]; Service: Orthopedics Medical devices from this surgery are in the Medical Devices section. TOE AMPUTATION 05/19/2023 Foot/Ankle/Left Left Left Left foot, amputation of third toe. Left foot, wound debridment application. Left foot, skin graft substitute. Left foot wound debridment closure.; Surgeon: Jabari Hill DPM; Location: [facility]; Service: Orthopedics Medical devices from this surgery are in the Medical Devices section. DEBRIDEMENT 05/19/2023 Left .; Surgeon: Jabari Hill DPM; Location: [facility]; Service: Orthopedics Medical devices from this surgery are in the Medical Devices section. LAYER WOUND CLOSURE 05/19/2023 Left .; Surgeon: Jabari Hill DPM; Location: [facility]; Service: Orthopedics Medical devices from this surgery are in the Medical Devices section. FOOT SURGERY 06/06/2023 Foot/Ankle/Left left FOOT TRANSMETATARSAL amputation; Surgeon: Jabari Hill DPM; Location: [facility]; Service: Podiatry Medical devices from [...] IR REVAS FEM POP ART UNILAT W DESTINATION SPECIALIST 06/02/2023 IR REVAS FEM POP ART UNILAT W DESTINATION SPECIALIST 06/02/2023 Vishnu Penn MD EDG IR [...] IR REVAS FEM POP ART UNILAT W DESTINATION SPECIALIST 12/28/2024 IR REVAS FEM POP ART UNILAT W DESTINATION SPECIALIST 12/28/2024 Vishnu Penn MD EDG IR [...] STEMI (ST elevation myocardi al infarction) ([facility]) STEMI with 3 NORI to RCA Cardiac pacemaker SJM Dual PPM - Dr. Cleaning History of cardiac cath 03/23/[address] aced in Right leg 03/23/2017 GA (myocardial infarction) ([facility]) 06/2016 Depression with anxiety Essential [...] 0.6 oz pur e alcohol) [facility] Utilities Answer Date Recorded In the past 12 months has [employer], gas, oil, or water [employer] threatened to shut off services in your home? No 12/28/2024 Overall Financial Resource Strain (CARDIA) Answe r Date Recorded How hard is it for you to pa y for the very basics like food, housing, medical care, and heating? Not hard at all 12/28/2024 PHQ-2 Answer Date Recorded PHQ-2 Total Score 0 12/28/2024 [facility] [place] of Occupat ional Health - Occupational Stress [...] for daily living? No 05/29/2023 [facility] IP Transportation Answer D ate [...] 16 05/14/2025 2:51 PM EDT Oxygen Saturation 96% 01/01/2025 2:00 PM EDT Inhaled Oxygen Concentration - - Weight 69.8 kg (153 lb 12.8 oz) 03/27/2025 8:38 AM EDT Height 162.6 cm (5' 4 ) 03/27/2025 8:38 AM EDT Body Mass Index 26.4 03/27/2025 8:38 AM EDT Plan of Treatment Upcoming Encounters Date Type Department Care Team (Late st Contact Info) Description 06/04/2025 2:15 PM EDT Appointment [facility] [place] [address] [place] [place] [address] Cristi Pelletier, DPM [address] [facility] [address] [place] [address] 11/12/2025 1:30 PM EST Appointment [facility] [address] [place] [address] Drive [address] [place] [id number] January, Nette Rand [employer] [address] [place] [address] [address] [place], [place] [id number] 11/12/2025 2:40 PM EST Office Visit [facility] [address] [place] [address] [place], [place] [id number] Health Maintenance Due Date Last Done Comments [...] 08/30/2024 08/30/2014, 06/21/1998 Influenza Vaccine (#1) 2025 2, 07/09/2021, 07/13/2017, Additional history exists Meningococcal B [...] tibial pulses. Medical Devices Implanted Type Area Gun Numberer Device Identifier Shelf Expiration Date Model / Serial / Lot Defib Graft Tissue Myriad Thin 5 X 5cm - [id number] Implanted:Qty: 1 on 06/15/2022 by Jabari Hill DPM at [facility] Left: Foot [employer]OA [employer] 07/27/2022 [id number] US / / [id number] Wire Denise 0.529gvn2.5in [facility] Pnt - [id number] Implanted:Qty: 2 on 06/15/2022 by Jabari Hill, DPM at [facility] Left: Foot MICROAIRE SURG INSTR 11/22/2025 [id number] / / [id number] Stent Enpros 8mm 7fr Intro 38mm 80cm Icast Trachbr Be Cvr-11/04/2022 Implanted:Qty: 1 on 11/04/2022 by Vishnu Penn MD Left: Iliac Artery GETINGE INDUSTIER:[facility]E [facility] [id number] / / [id number] Graft Tissue Myriad Thin 5 X 5cm - [id number] Implanted:Qty: 1 on 12/23/2022 by Jabari Hill, DPM at [facility] Left: Foot [employer]OS[employer] 02/24/2025 [id number] US / / [id number] Graft Ovine Tissue 500mg Beatriz Sheltoncells - [id number] Implanted:Qty: 1 on 12/23/2022 by Jabari Hill DPM at [facility] Left: Foot [employer]OS[employer] 07/27/2023 [id number] / / [id number] Graft Tissue Myriad Thin 5 X 5cm - [id number] Implanted:Qty: 1 on 02/10/2023 by Jabari Hill DPM at [facility] Left: Heel [employer]OS[employer] 03/26/2025 [id number] US / / [id number] Graft Tissue Myriad Thin 5 X 5cm - [id number] Implanted:Qty: 1 on 05/19/2023 by Jabari Hill DPJeremi at [facility] Left: Foot [employer]OS[employer] 03/26/2025 [id number] US / / [id number] Graft Tissue Myriad Thin 5 X 5cm - [id number] Implanted:Qty: 1 on 06/06/2023 by Jabari Hill DPM at [facility] Left: Heel [employer]OS[employer]ERY 02/24/2025 [id number] US / / [id number] Procedures Procedure Name Priority Date/Time Associated Diagnosis Comments MA US LOWER EXTREMITY ARTERIAL DUPLEX COMPLETE Routine 02/20/2025 2:08 PM EDT PAD (peripheral artery disease) Peripheral vascular angioplasty status with implants and grafts from Last 3 Months Results * [facility] LOWER EXTREMITY ARTERIAL DUPLEX COMPLETE (02/20/2025 2:08 PM EDT) Anatomical Region Laterality Modality Vascular, Leg Electrocardiogra phy 02/20/2025 1:19 PM EDT Impressions 02/20/2025 2:26 PM EDT Conclusions * Right: * RODOLFO: 0.63 (DPA, distal DESTINATION SPECIALIST occluded) / TBI: 0, absent waveform. There is an occlusion of the distal posterior tibial artery. Dampened, biphasic flow of the proximal and mid posterior tibial artery. Mild to moderate plaque noted in the arteries of the right lower extremity. * Left: * RODOLFO: 1.29 (DESTINATION SPECIALIST) / TBI: 0, metatarsal amputation. 20-49 % stenosis of the profunda, 145 cm/s. There is an occlusion of the proximal anterior tibial artery and the mid peroneal artery. Mild to moderate plaque noted in the arteries of the left lower extremity. Narrative Procedure Note Eusebio De Leon MD - 02/20/2025 IMPRESSION Conclusions * Right: * RODOLFO: 0.63 (DPA, distal DESTINATION SPECIALIST occluded) / TBI: 0, absent waveform. Thereis an occlusion of the distal posterior tibial artery. Dampened, biphasicflow of the proximal and mid posterior tibial artery. Mild to moderate plaquenoted in the arteries of the right lower extremity. * Left: * RODOLFO: 1.29 (DESTINATION SPECIALIST) / TBI: 0, metatarsal amputation. 20-49 % stenosis ofthe profunda, 145 cm/s. There is an occlusion of the proximal anteriortibial artery and the mid peroneal artery. Mild to moderate plaque noted in the arteries of the left lower extremity. Nette Jalloh APRN IMG VASCULAR ORDERABLES Final R esult from Last 3 Months Insurance [facility] [address] [facility] [place] [address] [facility] [place] [address] Advance Directives For more information, please contact: [phone] * Full Code (Latest Code Status on File) Date Activated Date Inactivated Comments 12/27/2024 10:43 PM 01/01/2025 9:14 PM * Full Code Date Activated Date Inactivated Comments 05/28/2023 10:35 AM 06/11/2023 9:55 PM Care Teams Fashion Show Director Relationship Specialty Start Date End Date William Hunter MD [address] [place] [phone] PCP - General Internal Medicine-Adolescent Medicine 05/28/23 González Gotti MD [address] [place] [address] [place] [address] Consulting Physician Internal Medicine - Clinical Cardiac Electrophysiology 04/05/17 Cristi Cleaning MD [address] [place] [address] [place] [address] Physician Internal Medicine-Cardiovascular Disease 04/05/17
--- OUTSIDE RECORDS SUMMARY | 2025-05-18 16:20 | XMS_ITS | Clinical Summary ---
Author Organization Healthcare Address [address] [place] [address] Care Team Providers Care Fuel Quality Tech Name Role Phone Fariha Henderson APRN Primary Care Provider [phone] Social History Tobacco Use Types Packs/Day Years Used Date Smoking Tobacco: Never Assessed Comments Unknown Sex and Gender Information Value Date Recorded Sex Assigned at Not on file Legal Sex Female 7:27 PM EDT Gender Identity Not on file Sexual Orientation Not on file Plan of Treatment Not on file Care Teams Fuel Quality Tech Relationship Specialty Start Date End Date Fariha Henderson APRN [address] [place] [address] PCP - General 02/07/21
--- OUTSIDE RECORDS SUMMARY | 2025-05-18 16:20 | XMS_ITS | Patient Health Record ---
Author Organization [facility] Address [address] [place] [address] Care Team Providers Care Program And Research Coordinator Name Role Phone William Hunter Primary Care Provider Sarah Wing Unavailable [phone] Migration, Provider Unavailable Unavailable Allergies Allergen (clinical drug ingredient) Drug/Non Drug Allergy documented on EMR Reaction Allergy Type Onset Date Status Substance with 9-geewcnw-2-methylg lutaryl-coenzyme A reductase inhibitor mechanism of action [...] review and pick correct strength-formula tion from [employer] options. If intended option is not shown, [...] Status W/U Status Risk Notes Problem Insomnia (002547102) Insomnia due to medical condition (G47.01) Active confirmed Problem Essential hypertension (02198458) Essential (primary) hypertension (I10) Active confirmed Problem Ventricular tachycardia (31850323) Ventricular tachycardia (I47.2) Active confirmed Problem Paroxysmal atrial fibrillation (687521932) Paroxysmal atrial fibrillation (I48.0) Active confirmed Problem Ventricular fibrillation (17299024) Ventricular fibrillation (I49.01) Active confirmed Problem Stricture of artery (05336453) Stricture of artery (I77.1) Active confirmed Problem Chronic ulcer of skin (22955902) Non-pressure chronic ulcer of skin of other sites with unspecified severity (L98.499) Active confirmed Problem Long-term current use of anticoagulant (348393506) 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) Active confirmed Problem Mixed anxiety and depressive disorder (970715261) Depression with anxiety (F41.8) Active confirmed Problem Neuropathy (797088740) Neuropathy (G62.9) Active confirmed Problem Essential hypertension (83816778) Essential hypertension (I10) Active confirmed Problem Hyperlipidaemia (10823746) Hyperlipemia (E78.5) Active confirmed Problem Atrial fibrillation (47065269) Atrial fibrillation (I48.91) Active confirmed Problem Gastroesophageal reflux disease without esophagitis (796446659) Gastroesophageal reflux disease without esophagitis (K21.9) Active confirmed Problem Atherosclerotic heart disease of [place] coronary artery without angina pectoris (772032602035855) Coronary artery disease involving [place] coronary artery of [place] heart without angina pectoris (I25.10) Active confirmed Problem COPD - Chronic obstructive pulmonary disease (57845039) Chronic obstructive pulmonary disease, unspecified COPD type (J44.9) Active confirmed Problem Chronic systolic heart failure (960326478) Chronic systolic heart failure (I50.22) Active confirmed Problem Chronic bronchiolitis (510832902) Chronic bronchiolitis (J44.9) Active confirmed Problem Peripheral arterial disease (615669852) Peripheral arterial disease (I73.9) Active confirmed Problem Kidney stone (52198640) Kidney stone (N20.0) Active confirmed Problem Generalized anxiety disorder (95556928) TRISH (generalized anxiety disorder) (F41.1) Active confirmed Problem Insomnia (378696348) Insomnia, unspecified type (G47.00) Active confirmed Problem Ventricular tachyarrhythmia (5867728) Ventricular tachyarrhythmia (I47.2) Active confirmed Problem Cardiac pacemaker in situ (551383028) History of pacemaker (Z95.0) Active confirmed Problem Atherosclerosis of coronary artery (134229519) Atherosclerosis of [place] coronary artery of [place] heart with other form of angina pectoris (I25.118) Active confirmed Problem Automatic implantable cardiac defibrillator in situ (393290347) Presence of automatic implantable cardioverter-defib rillator (Z95.810) Active confirmed Problem Mass of right adrenal gland (finding) (26328218873110790) Adrenal mass, right (E27.9) Active confirmed Problem Seasonal allergic rhinitis (880867280) Seasonal allergic rhinitis, unspecified allergic rhinitis trigger (J30.2) Active confirmed Problem Old myocardial infarction (3764524) History of ST elevation myocardial infarction (STEMI) (I25.2) Active confirmed Problem Automatic implantable cardiac defibrillator in situ (239195668) Presence of combination internal cardiac defibrillator (ICD) and pacemaker (Z95.810) Active confirmed Problem Arteritic leg ulcer (disorder) (821068004) Arterial leg ulcer (L97.909) Active confirmed Problem Chronic obstructive pulmonary disease (52098803) Advanced COPD (J44.9) Active confirmed Problem Betaxolol allergy (818712006) Betaxolol allergy (Z88.8) Active confirmed Problem Hypertensive heart failure (03441510) Unspecified hypertensive heart disease with heart failure (I11.0) Active confirmed Vital Signs Heart Rate 96 /min 02/27/2025 Temperature 97.0 degrees Fahrenheit 02/27/2025 Blood pressure diastolic 88 mm Hg 02/27/2025 Height 64 in 02/27/2025 Blood pressure systolic 136 mm Hg 02/27/2025 Weight 154 lbs 02/27/2025 BMI 26.43 kg/m2 02/27/2025 Encounters Encounter Location Date Provider Diagnosis [facility] [address] [place] [address] 12/30/2024 Provider Migration [facility] [address] [place] [address] 02/27/2025 Sarah Wing Routine medical exam Z00.00 ; Coronary artery disease involving [place] coronary artery of [place] heart without angina pectoris I25.10 ; Gastroesophageal reflux disease without esophagitis K21.9 ; Chronic systolic heart failure I50.22 ; Peripheral arterial disease I73.9 ; Paroxysmal atrial fibrillation I48.0 ; Hyperlipemia E78.5 ; 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 Z79.01 ; Essential hypertension I10 ; Encounter for screening for malignant neoplasm of colon Z12.11 ; Visit for screening mammogram Z12.31 and BMI 26.0-26.9,adult Z68.[address] [address] [address] 10/02/2024 William Hunter [address] [place] [address] 01/29/2025 Sarah Wing [facility] [address] [place], [place] [address] 02/27/2025 Sarah Wing [facility] [place] [address] [facility] [address] [place] [address] 03/05/2025 William Hunter [facility] [address] [place], [place] [address] 03/21/2025 Sarah Wing Abnormal mammogram R 92.8 Assessments Encounter Date Diagnosis (ICD Code) Assessment Notes Treatment Notes Treatment Clinical Notes Section Notes 02/27/2025 Routine medical exam (ICD-10 - Z00.00) Needs mammogram and cologuard, will arrange again 02/27/2025 Coronary artery disease involving [place] coronary artery of [place] heart without angina pectoris (ICD-10 - I25.10) [...] well. 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 02/27/2025 Encounter for screening for malignant neoplasm of colon (ICD-10 - Z12.11) 02/27/2025 Visit for screening mammogram (ICD-10 - Z12.31) 02/27/2025 BMI 26.0-26.9,adult (ICD-10 - Z68.26) BMI acceptable Plan Of Treatment Pending Test Test Name Order Date Ultrasound : Breast, Left 03/21/2025 Urinalysis 03/22/2018 Urinalysis 10/14/2016 X ray : [...] PANEL, STANDARD (7600) 10/19/2023 COMPREHENSIVE METABOLIC PANEL (13426) COMPREHENSIVE METABOLIC PANEL (35719) CBC (INCLUDES DIFF/PLT) (6399) 4 CBC (INCLUDES DIFF/PLT) (6399) 5 Insurance Providers Payer Name Payer Address Payer Phone Subscriber Number Group Number Insured Name Patient Relationship to Insured Coverage Start Date Coverage End Date [employer] [facility] [address] [address] [place] [address] [id number] Ashley Ding Self - patient is the [...] toe Hospitalization History Reason Date(Month/Year) [facility] blood cot 12/2024 [facility] 05/2023 [facility]- defibrillator shock, foot infection 12/2021 chest pain 2006 [place] 06/2016
[2025-05-18 17:14] LABS: Hematocrit 40.8 % (37.0-47.0); Hemoglobin 13.8 g/dL (12.2-16.2); Immature Granulocytes % 0.4 %; Mean Corpuscular HGB Conc 33.8 g/dL (31.8-35.4); Mean Corpuscular Hemoglobin 29.1 pg (27.0-31.2); Mean Corpuscular Volume 85.9 fl (81-99); Nucleated Red Blood Cells % 0 %; Platelet Count 290 K/mm3 (142-424); Red Blood Count 4.75 M/mm3 (4.20-5.40); Red Cell Distribution Width-SD 45.3 fL; White Blood Count 7.8 K/mm3 (4.8-10.8)
[2025-05-18 18:00] LABS: Chloride 106 mmol/L (98-107); Potassium 4.0 mmoL/L (3.5-5.1); Sodium 139 mmol/L (136-145)
[2025-05-18 18:05] LABS: Blood Urea Nitrogen 14 mg/dl (7-17); Calcium 9.8 mg/dl (8.4-10.2); Creatinine,Serum 0.80 mg/dl (0.52-1.04); Estimated Glomerular Filt Rate 73 ml/min (>60); GFR (African American) 89 ML/MIN (>60); Glucose 92 mg/dl (74-100)
[2025-05-18 19:40] LABS: Anion Gap 14.0 mEq/L (5-15); Carbon Dioxide 23 mmol/L (22.0-30.0)
== END 2025-05-18 23:59 | disposition home or self-care (01) ==
LOC: LAB 16:18
PROVIDERS: PCP Internal Medicine Adolescent Medicine; Visit Provider Internal Medicine
DX: Z48.812 Encounter for surgical aftercare following surgery on the circulatory system (principal); Z95.5 Presence of coronary angioplasty implant and graft
CPT/HCPCS: 36415; 80048; 85025

== ENCOUNTER 2025-06-19 11:24 | Outpatient (CLI) | payer OTHER, SELFPAY ==
--- OUTSIDE RECORDS SUMMARY | 2024-12-30 17:30 | XMS_ITS ---
Author Organization [facility] D [facility] Address [address] [place] [address] Care Team Providers Care Supervisory Forester Name Role Phone William Hunter Primary Care Provider [phone] Sarah Wing Unavailable [phone] Migration, Provider Unavailable Unavailable Allergies Allergen (clinical drug ingredient) Drug/Non Drug Allergy documented on EMR Reaction Allergy Type Onset Date Status Substance with 5-wjpcdhh-9-methylg lutaryl-coenzyme A reductase inhibitor mechanism of action (substance) Statins couldnt walk Drug Allergy Active codeine Codeine Unknown Drug Allergy Active hydrocodone HYDROcodone itchy and nausea Drug Allergy Active RE[facility] FOR VISIT [facility] Encounter Medications Medication SIG (Take, Route, Frequency, Duration) Notes Start Date End Date Status Metoprolol Succinate ER 100 MG TAKE 1 AND 1/2 TABLET BY MOUTH TWICE DAILY; Duration: 30 days Active Aspirin 81 MG 1 TAB(S) ORALLY ONCE A DAY *Please review and pick correct strength-formula [facility]ion [facility]. If intended option is not [...] Active Encounters Encounter Location Date Provider Diagnosis [place] [facility] [address] [facility] [address] [place] [address] 12/30/2024 Provider Migration Plan Of Treatment Medication [...] Notes * Rodo GLEZB:1965 (59 yo F)Acc No.[id number]:12/30/2024 Patient: Ashley NICOLE Provider: Janell elizabeth Migration :1965 Mamta ge:59 Y S ex:Female Date:12/30/2024 Address[id number] Pcp:William Hunter Subjective: * Chief Complaints: * 1 . Multum To Medispan Conversion Encounter. * Medical History: * Medications: T aking Aspirin 81 MG TABLET 1 TAB(S) ORALLY ONCE A DAY , Notes to Pharmacist: *Please review and pick correct strength-formulation from [employer] options. If intended option is not shown, [...] Electronic signature of Prov ider Migration on 06/19/2025 at 11:26 AM EDT Sign off status: Pending * Provider: Janell elizabeth Migration Date: 12/30/2024 Generated for Zuleima crockett/Joe/Farrukh on: 0 06/19/2025 11:26 AM EDT
--- OUTSIDE RECORDS SUMMARY | 2025-04-23 14:30 | XMS_ITS | Encounter Summary ---
Author Organization [facility] [address] Care Team Providers Care Wet Pour Mixer Name Role Phone González Gotti MD Unavailable [phone] Cristi Cleaning MD Unavailable [phone] William Hunter MD Primary Care Provider [phone] Reason for Referral * In Office Procedure (Routine) - Pending Review Specialty Diagnoses / Procedures Referred By Contac t Referred To Contact Diagnoses Pressure ulcer of left heel, stage 4 (HCC) Procedures [place] DEBRIDEMENT SUBCUTANEOUS TISSUE 1ST 20 SQ CM/< Jabari Corado Jr., MD [address] [place] [address] [address] [place] [address] Phone: tel: fax: Referral ID Status Reason Start Date Expiration Date V isits Requested Visits Authorized [id number] Pending Review 04/23/2025 04/23/2026 1 1 * (Routine) - Pending Review Specialty Diagnoses / Procedures Referred By Contac t Referred To Contact Diagnoses Pressure ulcer of left heel, stage 4 (HCC) 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) Procedures [facility] Jabari Corado Jr., MD [address] [place] [address] [address] [place] [address] Phone: tel: fax: Referral ID Status Reason Start Date Expiration Date V isits Requested Visits Authorized [id number] Pending Review 04/23/2025 04/23/2026 1 1 Reason for Visit * Reason Comments Wound Check * Consultation (Routine) - Authorization Not Needed Specialty Diagnoses / Procedures Referred By Contac t Referred To Contact Wound Care Diagnoses Wound Care Procedures IL DEBRIDEMENT SUBCUTANEOUS TISSUE 1ST 20 SQ CM/< IL DEBRIDEMENT MUSCLE &/FASCIA 1ST 20 SQ CM/< [place] DEBRIDEMENT BONE 1ST 20 SQ CM/< IL DEBRIDEMENT SUBCUTANEOUS TISSUE EA ADDL 20 SQ CM IL DEBRIDEMENT MUSCLE &/FASCIA EA ADDL 20 SQ CM IL DEBRIDEMENT BONE EACH ADDITIONAL 20 SQ CM IL DEBRIDEMENT OPEN WOUND FIRST 20 SQ CM/< [place] DEBRIDEMENT OPN WND EA ADDL 20 SQ CM/PRT THEREOF [facility] [place] [address] [address] Phone: tel: fax: Referral ID Status Reason Start Date Expiration Date Visits Requested Visits Authorized [id number] Authorization Not Needed Specialty Services Required 5 01/08/2026 99 99 Encounter Details Date Type Department Care Team (Latest Contact Info) Description 04/23/2025 2:30 PM EDT - 04/23/2025 11:59 PM EDT Hospital Encounter [facility] [address] [place] [address] Jabari Corado Jr., MD [address] [place] [address] [address] [place] [address] Pressure ulcer of left heel, stage 4 [...] = 0.6 oz pur e alcohol) [facility] Utilities Answer Date Recorded In the past 12 months has e [employer], gas, oil, or water company threatened to shut off services in your home? No 12/28/2024 Overall Financial Resource Strain (CARDIA) Answe r Date Recorded How hard is it for you to pa y for the very basics like food, housing, medical care, and heating? Not hard at all 12/28/2024 PHQ-2 Answer Date Recorded PHQ-2 Total Score 0 12/28/2024 [facility] - Occupational Stress Questionnaire Answer Date [...] things needed for daily living? No 05/29/2023 [facility] IP Transportation Answer D ate Recorded [...] days. fluticasone propionate (FLONASE) 50 mcg/actuation Nasl [place], Suspension 1 spay each nostril twice daily [...] Chest pain. oxymetazoline (AFRIN) 0.05 % Nasl [place], Non-Aerosol 1 [place] by Nasal route as needed for Congestion [...] ORAL Take 1 Tablet by mouth daily. oxyCODONE-acetami nophen (PERCOCET) 5-325 mg Oral Tablet [...] HLD (hyperlipidemia) Hypertension SD (myocardial infarction) ([facility] - [...] IR REVAS FEM POP ART UNILAT W HAT BRIM CURLER 03/13/2022 IR REVAS FEM POP ART UNILAT W HAT BRIM CURLER 03/13/2022 Kashif Wong MD [facility] IR IR REVAS FEM POP ART UNILAT W HAT BRIM CURLER 06/02/2023 IR REVAS FEM POP ART UNILAT W HAT BRIM CURLER 06/02/2023 Vishnu Penn MD [facility] IR IR REVAS FEM POP ART UNILAT W HAT BRIM CURLER 12/28/2024 IR REVAS FEM POP ART UNILAT W HAT BRIM CURLER 12/28/2024 Vishnu Penn MD [facility] IR IR [...] days. fluticasone propionate (FLONASE) 50 mcg/actuation Nasl [place], Suspension 1 spay each nostril twice daily [...] Chest pain. oxymetazoline (AFRIN) 0.05 % Nasl [place], Non-Aerosol 1 [place] by Nasal route as needed for Congestion [...] Myalgia Ezetimibe Myalgia Rosuvastatin Myalgia Simvastatin Myalgia Cgexatj-Cqm-Idj Reductase Inhibitors Other (See Comments) Joint pain [...] left heel, stage 4 (HCC) - [facility] Atherosclerosis of artery of [...] 4x4, roll gauze, every other day. 03/26 [facility] has been contacted to obtain your [...] free to reach out to our community engagement manager, Hanna Riggs at [phone] for any discussion. WHO TO CALL FOR PROBLEMS: Please call the OP wound care center with any problems or issues you may have after your visit or though the week. Each patient is assigned a pillowcase maker who can assist with issues you may be having. Individual office numbers are listed below. Press 1 for immediate or schedule needs, press 2 for the nursing line. The nurse line is for non-emergent needs and will be answered within 24 hours duringbusiness days. If you have a more immediate concern, press option #1. Office numbers: [phone] [place]audio[place]qxeu-[phone] [place]- [phone] Our offices do not have an on-call provider. If you have emergent needs after hours please contact your primary care provider. You may also utilize the [facility] Nurse NOW Helpline: 4-592-2IER-NOW for after-hours needs to get in contact with a nurse for assistance. 03/26 [facility] Wound [employer] has been contacted to obtain your wound [...] free to reach out to our community engagement manager, Hanna Riggs at [phone] for any discussion. WHO TO CALL FOR PROBLEMS: Please call the OP wound care center with any problems or issues you may have after your visit or though the week. Each patient is assigned a pillowcase maker who can assist with issues you may be having. Individual office numbers are listed below. Press 1 for immediate or schedule needs, press 2 for the nursing line. The nurse line is for non-emergent needs and will be answered within 24 hours duringbusiness days. If you have a more immediate concern, press option #1. Office numbers: [phone] [place]. ClaudioSilslf-[phone] [place]- [phone] Our offices do not have an on-call provider. If you have emergent needs after hours please contact your primary care provider. You may also utilize the [facility] Nurse NOW Helpline: 0-459-4FMU-NOW for after-hours needs to get in contact with a nurse for assistance. * Addendum Note - Balbina Tong RN - 04/23/2025 2:30 PM EDTEncounter addended by: Balbina Tong RN on: 04/24/2025 2:13 PM Actions taken: Flowsheet accepted, Charge Capture section accepted * Addendum Note - Balbina Tong RN - 04/23/2025 2:30 PM EDTEncounter addended by: Balbina oTng RN on: 04/24/2025 2:44 PM Actions taken: Flowsheet accepted documented in this encounter Plan of Treatment Upcoming Encounters Date Type Department Care Team (Late st Contact Info) Description 06/25/2025 2:45 PM EDT Appointment [facility] [place] [address] [address] Cristi Pelletier, DPM [address] [address] 11/12/2025 1:30 PM EST Appointment [facility] [address] [place] [address] [address] [place] [address] January, Nette Rand [address] [address] 11/12/2025 2:40 PM EST Office Visit [facility] [address] [place] [address] [address] [place] [address] [place] [address] [address] Scheduled Orders Name Type Priority Associated Diagnoses Orde r Schedule IL DEBRIDEMENT SUBCUTANEOUS TISSUE 1ST 20 SQ CM/< IL Charge Routine Pressure ulcer of left heel, stage 4 (HCC) Ordered: 04/23/2025 documented as of this encounter Goals Goal Patient Goal Type Associated Problems Recent Progress Patient-Stated? Author Wound Healing General On track(2024 3:23 PM EDT) Tsering Doran, RN Note: Wound [...] 04/23/2025 documented in this encounter Care Teams Wet Pour Mixer Relationship Specialty Start Date End Date William Hunter MD [facility] [place] [phone] PCP - General Internal Medicine-Adolescent Medicine 05/28/23 González Gotti MD [address] [place] [address] [place] [address] Consulting Physician Internal Medicine - Clinical Cardiac Electrophysiology 04/05/17 Cristi Cleaning MD [address] [place] [address] [place] [address] Physician Internal Medicine-Cardiovascular Disease 04/05/17 documented as of this encounter
--- OUTSIDE RECORDS SUMMARY | 2025-05-07 13:45 | XMS_ITS | Encounter Summary ---
Author Organization [place] [address] Care Team Providers Care Emergency Medicine Physician Name Role Phone González Gotti MD Unavailable [phone] Cristi Cleaning MD Unavailable [phone] William Hunter MD Primary Care Provider [phone] Reason for Referral * In Office Procedure (Routine) - Pending Review Specialty Diagnoses / Procedures Referred By Contac t Referred To Contact Diagnoses Pressure ulcer of left heel, stage 4 (HCC) Procedures IA DEBRIDEMENT MUSCLE &/FASCIA 1ST 20 SQ CM/< Cristi Pelletier DPM [address] [place] [id number] Phone: tel: fax: Referral ID Status Reason Start Date Expiration Date V isits Requested Visits Authorized [id number] Pending Review 05/12/2025 05/12/2026 1 1 * (Routine) - Pending Review Specialty Diagnoses / Procedures Referred By Contac t Referred To Contact Diagnoses Pressure ulcer of left heel, stage 4 (HCC) Procedures [facility] Cristi Pelletier DPM [address] [address] Phone: tel: fax: Referral ID Status Reason Start Date Expiration Date V isits Requested Visits Authorized [id number] Pending Review 05/07/2025 05/07/2026 1 1 Reason [...] ADDL 20 SQ CM/PRT THEREOF [facility] [address] [facility] [place] [address] Phone: tel: fax: Referral ID Status Reason Start Date Expiration Date Visits Requested Visits Authorized [id number] Authorization Not Needed Specialty Services Required 5 01/08/2026 99 99 Encounter Details Date Type Department Care Team (Latest Contact Info) Description 05/07/2025 1:45 PM EDT - 05/07/2025 11:59 PM EDT Hospital Encounter [facility] [address] [place] [address] Cristi Pelletier DPM [address] [address] Pressure ulcer of left heel, stage 4 (HCC) (Primary Dx) Discharge Disposition: Home or Self Care Social History Tobacco Use Types Packs/Day Years Used Date Smoking Tobacco: Former Cigarettes 0.3 40 0 12/26/1981 - 12/26/2021 Passive Smoke Exposure: Past Smokeless Tobacco: Never Alcohol Use Standard Drinks/Week Comments Not Currently 0 (1 standard drink = 0.6 oz pur e alcohol) [facility] Utilities Answer Date Recorded In the past 12 months has e Adv[employer], gas, oil, or water company threatened to shut off services in your home? No 12/28/2024 Overall Financial Resource Strain (CARDIA) Answe r Date Recorded How hard is it for you to pa y for the very basics like food, housing, medical care, and heating? Not hard at all 12/28/2024 PHQ-2 Answer Date Recorded PHQ-2 Total Score 0 12/28/2024 [facility] - Occupational Stress [...] needed for daily living? No 05/29/2023 [facility] IP Transportation Answer D ate Recorded In [...] Date Author No 06/11/2023 2:58 PM EDT Rded Bates RN documented in this encounter Medications [...] days. fluticasone propionate (FLONASE) 50 mcg/actuation Nasl Superior, Suspension 1 spay each nostril twice daily [...] Chest pain. oxymetazoline (AFRIN) 0.05 % Nasl Superior, Non-Aerosol 1 Superior by Nasal route as needed for Congestion [...] Bradycardia CAD (coronary artery disease) Cardiac pacemaker [facility] Dual PPM 11/05/2016 - Dr. Cleaning Chronic systolic heart failure ([facility]) COPD (chronic obstructive pulmonary disease) ([facility]) Depression with anxiety Emphysema, unspecified ([facility]) Essential hypertension Headache Heartburn History of cardiac cath 03/23/2017 Stent placed in Right leg 03/23/2017 HLD (hyperlipidemia) Hypertension MA (myocardial infarction) ([facility]) 06/2016 Pacemaker Post-operative nausea and vomiting Sinus node dysfunction ([facility]) SJM Dual PPM 11/05/2016 - [...] Surgeon: Jabari Hill DPM; Location: [facility] MAIN OR; Service: Orthopedics FEMUR FRACTURE SURGERY Right right femur fx repair FOOT SURGERY FOOT SURGERY Left 12/23/2022 Left foot heel and second and third toe debridement with application of skin graft substitute. ; Surgeon: Jabari Hill DPM; Location: [facility]; Service: Orthopedics FOOT SURGERY Left 02/10/2023 Surgeon: Jabari Hill DPM; Location: [facility]; Service: Orthopedics FOOT SURGERY Left 06/06/2023 left FOOT TRANSMETATARSAL amputation; Surgeon: Jabari Hill DPM; Location: [facility] MAIN OR; Service: Podiatry HAMMER TOE SURGERY Left 06/15/2022 Left foot Correction of hammer toe deformity with arthroplasty second and third toe. Left foot Application of skin graft substitute.; Surgeon: Jabari Hill DPM; Location: [facility] OR; Service: Podiatry HIP SURGERY IR ABDOMINAL AORTOGRAM SERIALOGRAM 03/13/2022 IR ABDOMINAL AORTOGRAM SERIALOGRAM 03/13/2022 Kashif Wong MD [facility] IR IR ABDOMINAL AORTOGRAM SERIALOGRAM 11/04/2022 IR ABDOMINAL AORTOGRAM SERIALOGRAM 11/04/2022 Vishnu Penn MD [facility] IR IR ABDOMINAL AORTOGRAM SERIALOGRAM 12/02/2022 IR ABDOMINAL AORTOGRAM SERIALOGRAM 12/02/2022 Vishnu Penn MD [facility] IR IR ABDOMINAL AORTOGRAM SERIALOGRAM 06/02/2023 IR ABDOMINAL AORTOGRAM SERIALOGRAM 06/02/2023 Vsihnu Penn MD [facility] IR IR ABDOMINAL AORTOGRAM [...] IR REVAS FEM POP ART UNILAT W SENIOR RD ENGINEER 03/13/2022 IR REVAS FEM POP ART UNILAT W SENIOR RD ENGINEER 03/13/2022 Kashif Wong MD [facility] IR IR REVAS FEM POP ART UNILAT W SENIOR RD ENGINEER 06/02/2023 IR REVAS FEM POP ART UNILAT W SENIOR RD ENGINEER 06/02/2023 Vishnu Penn MD [facility] IR IR REVAS FEM POP ART UNILAT W SENIOR RD ENGINEER 12/28/2024 IR REVAS FEM POP ART UNILAT W SENIOR RD ENGINEER 12/28/2024 Vishnu Penn MD [facility] IR IR [...] DAY FU CATH CONT INJ 12/28/2024 Vishnu ePnn MD [facility] IR IR TRANSCATH ARTERIAL INFUSION [...] Surgeon: Jabari Hill DPM; Location: [facility]; Service: Orthopedics SKIN GRAFT Left 06/15/2022 Surgeon: Jabari Hill DPM; Location: [facility]; Service: Podiatry SKIN GRAFT Left 12/23/2022 . ; Surgeon: Jabari Hill DPM; Location: [facility]; Service: Orthopedics SKIN GRAFT 02/10/2023 Surgeon: Jabari Hill DPM; Location: [facility]; Service: Orthopedics TOE AMPUTATION Left 02/10/2023 Left foot second toe amputation, Left foot excisional debridement with application of skin graft substitute; Surgeon: Jabari Hill DPM; Location: [facility]; Service: Orthopedics TOE AMPUTATION Left 05/19/2023 Left foot, amputation of third toe. Left foot, wound debridment application. Left foot, skin graft substitute. Left foot wound debridment closure.; Surgeon: Jabari Hill DPM; Location: [facility]; Service: Orthopedics Current Outpatient Medications [...] days. fluticasone propionate (FLONASE) 50 mcg/actuation Nasl Superior, Suspension 1 spay each nostril twice daily [...] Chest pain. oxymetazoline (AFRIN) 0.05 % Nasl Superior, Non-Aerosol 1 Superior by Nasal route as needed for Congestion [...] Myalgia Ezetimibe Myalgia Rosuvastatin Myalgia Simvastatin Myalgia Dipazpv-Izw-Vgk Reductase Inhibitors Other (See Comments) Joint pain [...] left heel, stage 4 (HCC) - [facility] - IA DEBRIDEMENT MUSCLE [...] 4x4, roll gauze, every other day. 03/26 [facility] has been contacted to obtain your [...] feel free to reach out to our gunstock spray unit adjuster, Hanna Riggs at [phone] for any discussion. WHO TO CALL FOR PROBLEMS: Please call the OP wound care center with any problems or issues you may have after your visit or though the week. Each patient is assigned a rifle case repairer who can assist with issues you may be having. Individual office numbers are listed below. Press 1 for immediate or schedule needs, press 2 for the nursing line. The nurse line is for non-emergent needs and will be answered within 24 hours duringbusiness days. If you have a more immediate concern, press option #1. Office numbers: Kfkqzmgtw-[phone] [place]-[phone] [place]- [phone] Our offices do not have an on-call provider. If you have emergent needs after hours please contact your primary care provider. You may also utilize the [facility] Nurse NOW Helpline: 1-986-3MGJ-NOW for after-hours needs to get in contact with a nurse for assistance. 03/26 [facility] has been contacted to obtain your [...] feel free to reach out to our gunstock spray unit adjuster, Hanna Riggs at [phone] for any discussion. WHO TO CALL FOR PROBLEMS: Please call the OP wound care center with any problems or issues you may have after your visit or though the week. Each patient is assigned a rifle case repairer who can assist with issues you may be having. Individual office numbers are listed below. Press 1 for immediate or schedule needs, press 2 for the nursing line. The nurse line is for non-emergent needs and will be answered within 24 hours duringbusiness days. If you have a more immediate concern, press option #1. Office numbers: Ilkuszbkf-[phone] [place]-[phone] [place]- [phone] Our offices do not have an on-call provider. If you have emergent needs after hours please contact your primary care provider. You may also utilize the [facility] Nurse NOW Helpline: 9-953-5NWQ-NOW for after-hours needs to get in contact with a nurse for assistance. documented in this encounter Plan of Treatment Upcoming Encounters Date Type Department Care Team (Late st Contact Info) Description 06/25/2025 2:45 PM EDT Appointment [facility] [place] [address] [place] [address] Cristi Pelletier, DPJeremi [address] [address] 11/12/2025 1:30 PM EST Appointment [facility] [address] [facility] [address] [place] [address] JanuaryNette APRN [address] [place] [address] 11/12/2025 2:40 PM EST Office Visit [facility] [address] [facility] [address] [place] [address] JanuaryNette APRN [address] [place] [address] [address] [place], [place] [id number] Scheduled Orders Name Type Priority Associated Diagnoses [...] 05/07/2025 documented in this encounter Care Teams Emergency Medicine Physician Relationship Specialty Start Date End Date William Hunter MD [address] [place] [address] [address] [place] [address] PCP - General Internal Medicine-Adolescent Medicine 05/28/23 González Gotti MD [address] [place] [address] Consulting Physician Internal Medicine - Clinical Cardiac Electrophysiology 04/05/17 Cristi Cleaning MD [address] [place] [address] [place] [address] Physician Internal Medicine-Cardiovascular Disease 04/05/17 documented as of this encounter
--- OUTSIDE RECORDS SUMMARY | 2025-05-14 14:44 | XMS_ITS | Encounter Summary ---
Author Organization [employer] [place] [address] Care Team Providers Care Tank Insulator Rubber Name Role Phone González Gotti MD Unavailable [phone] Cristi Cleaning MD Unavailable [phone] William Hunter MD Primary Care Provider [phone] Reason for Referral * In Office Procedure (Routine) - Pending Review Specialty Diagnoses / Procedures Referred By Contac t Referred To Contact Diagnoses 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) Pressure ulcer of left heel, stage 4 (HCC) Procedures WA DEBRIDEMENT SUBCUTANEOUS TISSUE 1ST 20 SQ CM/< Cristi Pelletier DPM [address] [address] Phone: tel: fax: Referral ID Status Reason Start Date Expiration Date V isits Requested Visits Authorized [id number] Pending Review 05/20/2025 05/20/2026 1 1 * (Routine) - Pending Review Specialty Diagnoses / Procedures Referred By Contac t Referred To Contact Diagnoses Pressure ulcer of left heel, stage 4 (HCC) Procedures [facility] PRIMARY [facility] Cristi Pelletier DPM [address] [address] Phone: tel: fax: Referral ID Status Reason Start Date Expiration Date V isits Requested Visits Authorized [id number] Pending Review 05/15/2025 05/15/2026 1 1 Reason [...] WND EA ADDL 20 SQ CM/PRT THEREOF [facility] [place] [address] [place] [address] Phone: tel: fax: Referral ID Status Reason Start Date Expiration Date Visits Requested Visits Authorized [id number] Authorization Not Needed Specialty Services Required 5 01/08/2026 99 99 Encounter Details Date Type Department Care Team (Latest Contact Info) Description 05/14/2025 2:44 PM EDT - 05/14/2025 11:59 PM EDT Hospital Encounter [facility] [address] [place] [address] Cristi Pelletier DPM [address] [address] Pressure ulcer of left heel, [...] drink = 0.6 oz pur e alcohol) [facility] Utilities Answer Date Recorded In [...] Date Recorded PHQ-2 Total Score 0 12/28/2024 [facility]ational [facility] Questionnaire Answer [...] things needed for daily living? No [facility]29/2023 [facility] Answer D ate Recorded In [...] days. fluticasone propionate (FLONASE) 50 mcg/actuation Nasl [place], Suspension 1 spay each nostril twice daily [...] Chest pain. oxymetazoline (AFRIN) 0.05 % Nasl [place], Non-Aerosol 1 [place] by Nasal route as needed for Congestion [...] Bradycardia CAD (coronary artery disease) Cardiac pacemaker [facility] Dual PPM 11/05/2016 - Dr. Cleaning Chronic systolic heart failure ([facility]) COPD (chronic obstructive pulmonary disease) ([facility]) Depression with anxiety Emphysema, unspecified (HCC) Essential hypertension Headache Heartburn History of cardiac cath 03/23/2017 Stent placed in Right leg 03/23/2017 HLD (hyperlipidemia) Hypertension ME (myocardial infarction) ([facility]) 06/2016 Pacemaker Post-operative nausea and vomiting Sinus node dysfunction ([facility]) [facility] Dual PPM 11/05/2016 - Dr. Cleaning STEMI (ST elevation myocardial infarction) ([facility]) STEMI with 3 NORI to RCA Systolic heart failure ([facility]) 02/2017 ECHO, EF 25% Past Surgical History: Procedure Laterality Date CARDIAC CATHETERIZATION Right 03/23/2017 stent placed in right leg CARDIAC PACEMAKER PLACEMENT 11/05/2016 [facility] Dual PPM COLONOSCOPY CORONARY ANGIOPLASTY WITH STENT PLACEMENT 06/2016 x3 DEBRIDEMENT Left 05/19/2023 .; Surgeon: Jabari Hill DPM; Location: [facility]; Service: Orthopedics FEMUR FRACTURE SURGERY Right right femur fx repair FOOT SURGERY FOOT SURGERY Left 12/23/2022 Left foot heel and second and third toe debridement with application of skin graft substitute. ; Surgeon: Jabari Hill DPM; Location: [facility]; Service: Orthopedics FOOT SURGERY Left 02/10/2023 Surgeon: Jabari Hill DPM; Location: [facility]; Service: Orthopedics FOOT SURGERY Left 06/06/2023 left FOOT TRANSMETATARSAL amputation; Surgeon: Jabari Hill DPM; Location: [facility]; Service: Podiatry HAMMER TOE SURGERY Left 06/15/2022 Left foot Correction of hammer toe deformity with arthroplasty second and third toe. Left foot Application of skin graft substitute.; Surgeon: Jabari Hill DPM; Location: [facility]; Service: Podiatry HIP SURGERY [...] IR REVAS FEM POP ART UNILAT W OTR FLATBED DRIVER 03/13/2022 IR REVAS FEM POP ART UNILAT W OTR FLATBED DRIVER 03/13/2022 Kashif Wong MD [facility] IR IR REVAS FEM POP ART UNILAT W OTR FLATBED DRIVER 06/02/2023 IR REVAS FEM POP ART UNILAT W OTR FLATBED DRIVER 06/02/2023 Vishnu Penn MD [facility] IR IR REVAS FEM POP ART UNILAT W OTR FLATBED DRIVER 12/28/2024 IR REVAS FEM POP ART UNILAT W OTR FLATBED DRIVER 12/28/2024 Vishnu Penn MD [facility] IR IR [...] 05/19/2023 .; Surgeon: Jabari Hill DPM; Location: [facility]; Service: Orthopedics SKIN GRAFT Left 06/15/2022 Surgeon: Jabari Hill DPM; Location: [facility]; Service: Podiatry SKIN GRAFT Left 12/23/2022 . ; Surgeon: Jabari Hill DPM; Location: [facility]; Service: Orthopedics SKIN GRAFT 02/10/2023 Surgeon: Jabari Hill DPM; Location: [facility]; Service: Orthopedics TOE AMPUTATION Left 02/10/2023 Left foot second toe amputation, Left foot excisional debridement with application of skin graft substitute; Surgeon: Jabari Hill DPM; Location: [facility]; Service: Orthopedics TOE AMPUTATION Left 05/19/2023 Left foot, amputation of third toe. Left foot, wound debridment application. Left foot, skin graft substitute. Left foot wound debridment closure.; Surgeon: Jabari Hill DPM; Location: [facility]; Service: Orthopedics Current Outpatient [...] days. fluticasone propionate (FLONASE) 50 mcg/actuation Nasl [place], Suspension 1 spay each nostril twice daily [...] Chest pain. oxymetazoline (AFRIN) 0.05 % Nasl [place], Non-Aerosol 1 [place] by Nasal route as needed for Congestion [...] Myalgia Ezetimibe Myalgia Rosuvastatin Myalgia Simvastatin Myalgia Riebhlz-Uuz-Yis Reductase Inhibitors Other (See Comments) Joint pain [...] left heel, stage 4 (HCC) - [facility] - WA DEBRIDEMENT SUBCUTANEOUS TISSUE 1ST 20 SQ CM/< 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) - WA DEBRIDEMENT SUBCUTANEOUS TISSUE 1ST 20 SQ [...] 4x4, roll gauze, every other day. 03/26 [facility] has been contacted to obtain your wound [...] to reach out to our community health specialist, Hanna Riggs at [phone] for any discussion. WHO TO CALL FOR [...] immediate concern, press option #1. Office numbers: [phone] [address] [phone] Mina- [phone] Our offices do not have an on-call provider. If you have emergent needs after hours please contact your primary care provider. You may also utilize the [employer] Nurse NOW Helpline: [phone] for after-hours needs to get in contact with a nurse for assistance. 03/26 [facility] has been contacted to obtain your wound [...] leadership team and we will address issues onthe spot. You can also feel free to reach out to our community health specialist, Hanna Riggs at [phone] for any discussion. documented in this encounter Plan of Treatment Upcoming Encounters Date Type Department Care Team (Late st Contact Info) Description 06/25/2025 2:45 PM EDT Appointment [facility] [address] [place] [address] Cristi Pelletier, DPM [address] [address] 11/12/2025 1:30 PM EST Appointment [facility] [address] [place] [address] [address] [place] [address] Nette Jalloh APRN [address] [place] [address] [place] [address] [address] 11/12/2025 2:40 PM EST Office Visit [facility] [address] [place] [address] [address] [place] [address] Nette Jalloh APRN [address] [place] [address] [facility] [address] [place] [address] Scheduled Orders Name Type Priority Associated Diagnoses Orde r Schedule WA DEBRIDEMENT SUBCUTANEOUS TISSUE 1ST 20 SQ CM/< WA Charge Routine 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 Author Wound Healing General On track(2024 3:23 PM EDT) Tsering Doran RN Note: Wound [...] 05/15/2025 documented in this encounter Care Teams Tank Insulator Rubber Relationship Specialty Start Date End Date William Hunter MD [facility] [address] [place] [id number] PCP - General Internal Medicine-Adolescent Medicine 05/28/23 González Gotti MD [address] [place] [address] [address] [place], [place] [id number] Consulting Physician Internal Medicine - Clinical Cardiac Electrophysiology 04/05/17 Cristi Cleaning MD [address] [place] [address] [address] [place], [place] [id number] Physician Internal Medicine-Cardiovascular Disease 04/05/17 documented as of this encounter
--- OUTSIDE RECORDS SUMMARY | 2025-06-04 14:01 | XMS_ITS | Encounter Summary ---
Author Organization [place] [address] Care Team Providers Care Oleomargarine Maker Name Role Phone González Gotti MD Unavailable [phone] Cristi Cleaning MD Unavailable [phone] William Hunter MD Primary Care Provider [phone] Reason for Referral * In Office Procedure (Routine) - Pending Review Specialty Diagnoses / Procedures Referred By Contac t Referred To Contact Diagnoses Pressure ulcer of left heel, stage 4 (HCC) Procedures OK DEBRIDEMENT SUBCUTANEOUS TISSUE 1ST 20 SQ CM/< Cristi Pelletier DPM [address] [address] Phone: tel: fax: Referral ID Status Reason Start Date Expiration Date V isits Requested Visits Authorized [id number] Pending Review 06/10/2025 06/10/2026 1 1 * (Routine) - Pending Review Specialty Diagnoses / Procedures Referred By Contac t Referred To Contact Diagnoses Pressure ulcer of left heel, stage 4 (HCC) Procedures [facility] Cristi Pelletier DPM [address] [address] Phone: tel: fax: Referral ID Status Reason Start Date Expiration Date V isits Requested Visits Authorized [id number] Pending Review 06/04/2025 06/04/2026 1 1 Reason for Visit * Reason Comments Wound Check * Consultation (Routine) - Authorization Not Needed Specialty Diagnoses / Procedures Referred By Brian t Referred To Contact Wound Care Diagnoses Wound Care Procedures OK DEBRIDEMENT SUBCUTANEOUS TISSUE 1ST 20 SQ CM/< OK DEBRIDEMENT MUSCLE &/FASCIA 1ST 20 SQ CM/< OK DEBRIDEMENT BONE 1ST 20 SQ CM/< OK DEBRIDEMENT SUBCUTANEOUS TISSUE EA ADDL 20 SQ CM OK DEBRIDEMENT MUSCLE &/FASCIA EA ADDL 20 SQ CM OK DEBRIDEMENT BONE EACH ADDITIONAL 20 SQ CM OK DEBRIDEMENT OPEN WOUND FIRST 20 SQ CM/< OK DEBRIDEMENT OPN WND EA ADDL 20 SQ CM/PRT THEREOF [facility] [place] [address] [place] [address] Phone: tel: fax: Referral ID Status Reason Start Date Expiration Date Visits Requested Visits Authorized [id number] Authorization Not Needed Specialty Services Required 5 01/08/2026 99 99 Encounter Details Date Type Department Care Team (Latest Contact Info) Description 06/04/2025 2:01 PM EDT - 06/04/2025 11:59 PM EDT Hospital Encounter [facility] W[facility] Center [address] [place] [address] Cristi Pelletier DPM [address] [address] Pressure ulcer of left heel, stage 4 (HCC) (Primary Dx) Discharge Disposition: Home or Self Care Social History Tobacco Use Types Packs/Day Years Used Date Smoking Tobacco: Former Cigarettes 0.3 40 0 12/26/1981 - 12/26/2021 Passive Smoke Exposure: Past Smokeless Tobacco: Never Alcohol Use Standard Drinks/Week Comments Not Currently 0 (1 standard drink = 0.6 oz pur e alcohol) [facility] Utilities Answer Date Recorded In the [...] Date Recorded PHQ-2 Total Score 0 12/28/2024 [facility] - Occupational Stress Questionnaire Answer [...] needed for daily living? No 05/29/2023 [facility] [...] Sign Reading Time Taken Comments Blood Pressure 143/81 06/04/2025 2:14 PM EDT Pulse 99 06/04/2025 2:14 PM EDT Temperature 36.5 C (97.7 F) 06/04/2025 2:14 PM EDT Respiratory Rate 16 06/04/2025 2:14 PM EDT Oxygen Saturation - - Inhaled [...] days. fluticasone propionate (FLONASE) 50 mcg/actuation Nasl Woodman, Suspension 1 spay each nostril twice daily [...] Chest pain. oxymetazoline (AFRIN) 0.05 % Nasl Woodman, Non-Aerosol 1 Woodman by Nasal route as needed for Congestion [...] Progress Notes * Cristi Pelletier DPM - 06/04/2025 2:15 PM EDT Date of Visit:06/04/2025 Progress Note HPI Ashley Ding is a 59 y.o. year old female patient who presents today for wound evaluation and follow-up. Daily dressing change Patient denies any fever, chills, nausea or vomiting Improved again Past Medical History: Diagnosis Date Anesthesia complication only with phenergan, alarming how long it takes her to wake up Asthma Bradycardia CAD (coronary artery disease) Cardiac pacemaker [facility] Dual PPM 11/05/2016 - Dr. Cleaning Chronic systolic heart failure ([facility]) COPD (chronic obstructive pulmonary disease) ([facility]) Depression with anxiety Emphysema, unspecified ([facility]) Essential hypertension Headache Heartburn History of cardiac cath 03/23/2017 Stent placed in Right leg 03/23/2017 HLD (hyperlipidemia) Hypertension OR (myocardial infarction) ([facility]) 06/2016 Pacemaker Post-operative nausea and vomiting Sinus node dysfunction ([facility]) [facility] Dual PPM 11/05/2016 - Dr. Cleaning [...] 05/19/2023 .; Surgeon: Jabari Hill DPM; [facility]; Service: Orthopedics FEMUR FRACTURE SURGERY Right right femur fx repair FOOT SURGERY FOOT SURGERY Left 12/23/2022 Left foot heel and second and third toe debridement with application of skin graft substitute. ; Surgeon: Jabari Hill DPM; Location: [facility]; Service: Orthopedics FOOT SURGERY Left 02/10/2023 Surgeon: Jabari Hill DPM; Location: [facility]; Service: Orthopedics FOOT SURGERY Left 06/06/2023 left FOOT TRANSMETATARSAL amputation; Surgeon: Jabari Hill DPM; Location: [facility] MAIN OR; Service: Podiatry HAMMER TOE SURGERY Left 06/15/2022 Left foot Correction of hammer toe deformity with arthroplasty second and third toe. Left foot Application of skin graft substitute.; Surgeon: Jabari Hill DPM; Location: [facility]; Service: Podiatry HIP [...] IR REVAS FEM POP ART UNILAT W HARDWARE SALES ASSISTANT 03/13/2022 IR REVAS FEM POP ART UNILAT W HARDWARE SALES ASSISTANT 03/13/2022 Kashif Wong MD EDG IR IR REVAS FEM POP ART UNILAT W HARDWARE SALES ASSISTANT 06/02/2023 IR REVAS FEM POP ART UNILAT W HARDWARE SALES ASSISTANT 06/02/2023 Vishnu Penn MD EDG IR IR REVAS FEM POP ART UNILAT W HARDWARE SALES ASSISTANT 12/28/2024 IR REVAS FEM POP ART UNILAT W HARDWARE SALES ASSISTANT 12/28/2024 Vishnu Penn MD EDG IR IR [...] 05/19/2023 .; Surgeon: Jabari Hill DPM; Location: [facility]; Service: Orthopedics SKIN GRAFT Left 06/15/2022 Surgeon: Jabari Hill DPM; Location: [facility]; Service: Podiatry SKIN GRAFT Left 12/23/2022 . ; Surgeon: Jabari Hill DPM; Location: [facility]; Service: Orthopedics SKIN GRAFT 02/10/2023 Surgeon: Jabari Hill DPM; Location: [facility]; Service: Orthopedics TOE AMPUTATION Left 02/10/2023 Left foot second toe amputation, Left foot excisional debridement with application of skin graft substitute; Surgeon: Jabari Hill DPM; Location: [facility]; Service: Orthopedics TOE AMPUTATION Left 05/19/2023 Left foot, amputation of third toe. Left foot, wound debridment application. Left foot, skin graft substitute. Left foot wound debridment closure.; Surgeon: Jabari Hill DPM; Location: [facility]; Service: Orthopedics Current [...] days. fluticasone propionate (FLONASE) 50 mcg/actuation Nasl Woodman, Suspension 1 spay each nostril twice daily [...] Chest pain. oxymetazoline (AFRIN) 0.05 % Nasl Woodman, Non-Aerosol 1 Woodman by Nasal route as needed for Congestion [...] Myalgia Ezetimibe Myalgia Rosuvastatin Myalgia Simvastatin Myalgia Whcusnr-Pki-Ybb Reductase Inhibitors Other (See Comments) Joint pain Codeine Itching nausea Hydrocodone Itching nausea Phenergan [Promethazine] Other (See Comments) Made legs restless And also very sleepy ROS See HPI for further details. Relevant review of systems otherwise negative. Physical Exam Vitals: 06/04/25 1414 BP: 143/81 Pulse: 99 Resp: 16 Temp: 97.7 ??F (36.5 ??C) TempSrc: Forehead Ulcer Progress and Procedure Please refer to the LDA for details of ulcer progress and procedure. Ulcer evaluated left heel posterior plantar to subcutaneous fat No gross evidence of infection No abscess or sinus formation No fluctuance No malodor No ascending cellulitis or lymphangitis No gross necrosis of wound edges or base Wound bed appears viable Assessment and Plan Ashley was seen today for wound check. Diagnoses and all orders for this visit: Pressure ulcer of left heel, stage 4 (HCC) - AMB [facility]IMARY [facility] - OK DEBRIDEMENT SUBCUTANEOUS TISSUE 1ST 20 SQ CM/< [...] Patient Instructions - Balbina Tong RN - 06/04/2025 2:15 PM EDT HOME-CARE INSTRUCTIONS FOLLOWING YOUR WOUND [...] 4x4, roll gauze, every other day. 03/26 [facility] Wound [facility] [...] to reach out to our community relations liaison, Hanna Riggs at [phone] for any discussion. WHO TO CALL FOR PROBLEMS: Please call the OP wound care center with any problems or issues you may have after your visit or though the week. Each patient is assigned a director of casework services who can assist with issues you may be having. Individual office numbers are listed below. Press 1 for immediate or schedule needs, press 2 for the nursing line. The nurse line is for non-emergent needs and will be answered within 24 hours duringbusiness days. If you have a more immediate concern, press option #1. Office numbers: [phone] [place] ClaudioRuwtfl-[phone] Mina- [phone] Our offices do not have an on-call provider. If you have emergent needs after hours please contact your primary care provider. You may also utilize the [facility] NOW Helpline: [phone] for after-hours needs to get in contact with a nurse for assistance. 03/26 [facility] [employer] has been contacted to obtain your [...] to reach out to our community relations liaison, Hanna Riggs at [phone] for any discussion. documented in this encounter Plan of Treatment Upcoming Encounters Date Type Department Care Team (Late st Contact Info) Description 06/25/2025 2:45 PM EDT Appointment [facility] [address] [facility] [place] [address] Cristi Pelletier, DPM [address] [address] 11/12/2025 1:30 PM EST Appointment [facility] [address] [place] [address] [address] [place] [address] Nette Jalloh APRN [address] [place] [address] [address] [place] [address] 11/12/2025 2:40 PM EST Office Visit [facility] [address] [place] [address] [address] [place] [address] Nette Jalloh APRN [address] [place] [address] [address]ZU[address] [place] [address] Scheduled Orders Name Type Priority Associated Diagnoses Orde r Schedule OK DEBRIDEMENT SUBCUTANEOUS TISSUE 1ST 20 SQ CM/< OK Charge Routine Pressure ulcer of left heel, stage 4 (HCC) Ordered: 06/10/2025 documented as of this encounter Goals Goal [...] % ointment Topical, ONCE, 1 dose, On 06/04/25 at 1430, Application site: foot Given 06/04/2025 2:23 PM EDT documented in this encounter Orders Medications Ordered That Daniel ht Not Have Been Administered Count Last Ordered Date First Ordered Date lidocaine (XYLOCAINE) 5 % ointment 1 2024 Nursing Count Last Ordered Date First Orde red Date AMB C PRIMARY DRESSING 1 06/04/2025 documented in this encounter Care Teams Oleomargarine Maker Relationship Specialty Start Date End Date William Hunter MD [address] [place] [id number] PCP - General Internal Medicine-Adolescent Medicine 05/28/23 González Gotti MD [address] [place] [address] [place] [address] Consulting Physician Internal Medicine - Clinical Cardiac Electrophysiology 04/05/17 Cristi Cleaning MD [address] [place] [address] [place] [address] Physician Internal Medicine-Cardiovascular Disease 04/05/17 documented as of this encounter
--- OUTSIDE RECORDS SUMMARY | 2025-06-11 14:45 | XMS_ITS | Encounter Summary ---
Author Organization [place] [address] Care Team Providers Care Cocoa Butter Filter Operator Name Role Phone González Gotti MD Unavailable [phone] Cristi Cleaning MD Unavailable [phone] William Hunter MD Primary Care Provider [phone] Reason for Referral * In Office Procedure (Routine) - Pending Review Specialty Diagnoses / Procedures Referred By Contac t Referred To Contact Diagnoses Pressure ulcer of left heel, stage 4 (HCC) 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) Procedures [place] DEBRIDEMENT SUBCUTANEOUS TISSUE 1ST 20 SQ CM/< Cristi Pelletier DPM [address] [address] Phone: tel: fax: Referral ID Status Reason Start Date Expiration Date V isits Requested Visits Authorized [id number] Pending Review 06/12/2025 06/12/2026 1 1 * (Routine) - Pending Review Specialty Diagnoses / Procedures Referred By Contac t Referred To Contact Diagnoses Pressure ulcer of left heel, stage 4 (HCC) Procedures [facility] PRIMARY DRESSING Cristi Pelletier DPM [address] [address] Phone: tel: fax: Referral ID Status Reason Start Date Expiration Date V isits Requested Visits Authorized [id number] Pending Review 06/11/2025 06/11/2026 1 1 Reason [...] [facility] Wound Care Center [address] [place] [address] Phone: tel: fax: Referral ID Status Reason Start Date Expiration Date Visits Requested Visits Authorized [id number] Authorization Not Needed Specialty Services Required 5 01/08/2026 99 99 Encounter Details Date Type Department Care Team (Latest Contact Info) Description 06/11/2025 2:45 PM EDT - 06/11/2025 11:59 PM EDT Hospital Encounter [facility] Wound Care Center [address] [place] [address] Cristi Pelletier DPM [address] [address] Pressure ulcer of left heel, [...] 0.6 oz pur e alcohol) [facility] Utilities Answer Date Recorded In the past 12 months has [facility] [employer], oil, or water [employer] threatened to shut off services in your home? No 12/28/2024 Overall Financial Resource Strain (CARDIA) Answe r Date Recorded How hard is it for you to pa y for the very basics like food, housing, medical care, and heating? Not hard at all 12/28/2024 PHQ-2 Answer Date Recorded PHQ-2 Total Score 0 12/28/2024 [facility] - Occupational Stress Questionnaire Answer [...] things needed for daily living? No 05/29/2023 [facility] IP Transportation Answer D ate Recorded [...] days. fluticasone propionate (FLONASE) 50 mcg/actuation Nasl [place], Suspension 1 spay each nostril twice daily [...] Chest pain. oxymetazoline (AFRIN) 0.05 % Nasl [place], Non-Aerosol 1 [place] by Nasal route as needed for Congestion [...] Bradycardia CAD (coronary artery disease) Cardiac pacemaker [facility] Dual PPM 11/05/2016 - Dr. Cleaning Chronic systolic heart failure ([facility]) COPD (chronic obstructive pulmonary disease) ([facility]) Depression with anxiety Emphysema, unspecified ([facility]) Essential hypertension Headache Heartburn History of cardiac cath 03/23/2017 Stent placed in Right leg 03/23/2017 HLD (hyperlipidemia) Hypertension [place] (myocardial infarction) ([facility]) 06/2016 Pacemaker Post-operative nausea and vomiting Sinus node dysfunction ([facility]) [facility] Dual PPM 11/05/2016 - Dr. [...] 05/19/2023 .; Surgeon: Jabari Hill DPM; Location: [facility] MAIN OR; Service: Orthopedics FEMUR FRACTURE SURGERY Right right femur fx repair FOOT SURGERY FOOT SURGERY Left 12/23/2022 Left foot heel and second and third toe debridement with application of skin graft substitute. ; Surgeon: Jabari Hill DPM; Location: [facility] MAIN OR; Service: Orthopedics FOOT SURGERY Left 02/10/2023 Surgeon: Jabari Hill DPM; Location: [facility] MAIN OR; Service: Orthopedics FOOT SURGERY Left 06/06/2023 left FOOT TRANSMETATARSAL amputation; Surgeon: Jabari Hill DPM; Location: [facility] MAIN OR; Service: Podiatry HAMMER TOE SURGERY Left 06/15/2022 Left foot Correction of hammer toe deformity with arthroplasty second and third toe. Left foot Application of skin graft substitute.; Surgeon: Jabari Hill DPM; Location: [facility] MAIN OR; Service: Podiatry [...] IR REVAS FEM POP ART UNILAT W ELECTRIC RELAY TESTER 03/13/2022 IR REVAS FEM POP ART UNILAT W ELECTRIC RELAY TESTER 03/13/2022 Kashif Wong MD [facility] IR IR REVAS FEM POP ART UNILAT W ELECTRIC RELAY TESTER 06/02/2023 IR REVAS FEM POP ART UNILAT W ELECTRIC RELAY TESTER 06/02/2023 Vishnu Penn MD [facility] IR IR REVAS FEM POP ART UNILAT W ELECTRIC RELAY TESTER 12/28/2024 IR REVAS FEM POP ART UNILAT W ELECTRIC RELAY TESTER 12/28/2024 Vishnu Penn MD [facility] IR [...] 05/19/2023 .; Surgeon: Jabari Hill DPM; Location: [facility] MAIN OR; Service: Orthopedics SKIN GRAFT Left 06/15/2022 Surgeon: Jabari Hill DPM; Location: [facility] MAIN OR; Service: Podiatry SKIN GRAFT Left 12/23/2022 . ; Surgeon: Jabari Hill DPM; Location: [facility] MAIN OR; Service: Orthopedics SKIN GRAFT 02/10/2023 Surgeon: Jabari Hill DPM; Location: [facility] MAIN OR; Service: Orthopedics TOE AMPUTATION Left 02/10/2023 Left foot second toe amputation, Left foot excisional debridement with application of skin graft substitute; Surgeon: Jabari Hill DPM; Location: [facility] MAIN OR; Service: Orthopedics TOE AMPUTATION Left 05/19/2023 Left foot, amputation of third toe. Left foot, wound debridment application. Left foot, skin graft substitute. Left foot wound debridment closure.; Surgeon: Jabari Hill DPM; Location: [facility] MAIN OR; Service: Orthopedics [...] days. fluticasone propionate (FLONASE) 50 mcg/actuation Nasl [place], Suspension 1 spay each nostril twice daily [...] Chest pain. oxymetazoline (AFRIN) 0.05 % Nasl [place], Non-Aerosol 1 [place] by Nasal route as needed for Congestion [...] Myalgia Ezetimibe Myalgia Rosuvastatin Myalgia Simvastatin Myalgia Pchlfyp-Lmk-Uho Reductase Inhibitors Other (See Comments) Joint pain [...] left heel, stage 4 (HCC) - [facility] PRIMARY DRESSING - [place] DEBRIDEMENT SUBCUTANEOUS TISSUE [...] gauze, every other day. 03/26 [facility] Wound [facility] has been contacted [...] free to reach out to our community center director, Hanna Riggs at [phone] for any discussion. WHO TO CALL FOR PROBLEMS: Please call the OP wound care center with any problems or issues you may have after your visit or though the week. Each patient is assigned a case supervisor who can assist with issues you may be having. Individual office numbers are listed below. Press 1 for immediate or schedule needs, press 2 for the nursing line. The nurse line is for non-emergent needs and will be answered within 24 hours duringbusiness days. If you have a more immediate concern, press option #1. Office numbers: [phone] Ft. [phone] [facility] [phone] Our offices do not have an on-call provider. If you have emergent needs after hours please contact your primary care provider. You may also utilize the [place] Nurse NOW Helpline: 1-409-6WSN-NOW for after-hours needs to get in contact with a nurse for assistance. 03/26 [facility] has been contacted to obtain your wound [...] free to reach out to our community center director, Hanna Riggs at [phone] for any discussion. documented in this encounter Plan of Treatment Upcoming Encounters Date Type Department Care Team (Late st Contact Info) Description 06/25/2025 2:45 PM EDT Appointment [facility] Wound Care Center [place] [address] [address] [facility] [place] [address] Cristi Pelletier, DPM [address] [address] 11/12/2025 1:30 PM EST Appointment [facility] [address] [place] [address] [address] [place] [address] Nette Jalloh APRN [address] [place] [address] [phone] 11/12/2025 2:40 PM EST Office Visit [facility] [address] [place] [address] [address] [place] [address] Nette Jalloh APRN [address] [place] [address] [phone] Scheduled Orders Name Type Priority Associated Diagnoses [...] Ordered Date First Orde red Date [facility] PRIMARY DRESSING 1 06/11/2025 documented in this encounter Care Teams Cocoa Butter Filter Operator Relationship Specialty Start Date End Date William Hunter MD [facility] [place] [address] [place] [address] PCP - General Internal Medicine-Adolescent Medicine 05/28/23 González Gotti MD [address] [facility] [place] [address] Consulting Physician Internal Medicine - Clinical Cardiac Electrophysiology 04/05/17 Cristi Cleaning MD [address] [facility] [place] [address] Physician Internal Medicine-Cardiovascular Disease 04/05/17 documented as of this encounter
--- OUTSIDE RECORDS SUMMARY | 2025-06-19 11:27 | XMS_ITS | Patient Health Record ---
Author Organization [facility] Address [address] [place] [address] Care Team Providers Care Mannequin Molder Name Role Phone William Hunter Primary Care Provider Sarah Wing Unavailable [phone] Migration, Provider Unavailable Unavailable Allergies Allergen (clinical drug ingredient) Drug/Non Drug Allergy documented on EMR Reaction Allergy Type Onset Date Status Substance with 6-htzzrac-7-methylg lutaryl-coenzyme A reductase inhibitor mechanism of action (substance) Statins couldnt walk Drug Allergy Active codeine Codeine Unknown Drug Allergy Active hydrocodone HYDROcodone itchy and nausea Drug Allergy Active Results Component Value Reference Range Notes Mammogram : Bilateral Reviewed date:03/21/2025 09:46:46 AM Interpretation: Performing Lab: Notes/Report: Medications Medication SIG (Take, Route, Frequency, Duration) Notes Start Date End Date Status Repatha 140 MG/ML subcutaneously every 2 weeks Active RANEXA 1000 MG 1 TAB(S) ORALLY 2 TI MES A DAY Active Pantoprazole Sodium 40 MG 1 tab(s) orall y once a day Active Eliquis 5 mg TAKE ONE TABLET BY MOUTH TWICE DAILY; Duration: 60 Active Plavix 75 MG 1 tab(s) orally once a day Active Magnesium Gluconate 250 MG 1 tab(s) oral ly once a day Active Isosorbide Mononitrate ER 12 0 MG 1 tab(s) orally once a day (in the morning) Active Aspirin 81 MG 1 TAB(S) ORALLY ONCE A DAY Active hydrOXYzine HCl 25 MG 1 tab(s) orally 2 times a day; Duration: 30 days 06/24/2023 Active Jardiance 10 MG 1 tab(s) orally once a day (in the morning) Active rOPINIRole HCl 0.25 MG 1 tab(s) orally a t bedtime Active Metoprolol Succinate ER 100 MG TAKE 1 AND 1/2 TABLET BY MOUTH TWICE DAILY; Duration: 90 days Active Nitroglycerin 0.4 MG 1 tab(s) sublingual ly every 5 minutes prn Active Gabapentin 300 MG 1 cap(s) orally 2 ti mes a day; Duration: 30 day(s) 03/05/2025 Active hydroCHLOROthiazide 25 MG 1 tab(s) orall y every other day Active Immunizations Vaccine Route Administration Date Status Comme nts Flublok IM Intramuscular 08/11/2022 Administered FLUCELVAX IM Intramuscular 06/19/2025 Administered Influenza-Fluzone 3+years (NON-MEDICARE) IM Intramuscular 07/17/2016 Administered Influenza-Fluzone 3+years (NON-MEDICARE) IM Intramuscular 07/13/2017 Administered Social History Tobacco Use: Social History Observation Description Date Details (start date - stop date) Former Smoker NA - NA Smoking: Question Answer Notes Are you a: former smoker How long has it been since you last smoked? 6-12 months Problems Problem Type SNOMED Code ICD Code Onset Dates Problem Status W/U Status Risk Notes Problem Insomnia (030276233) Insomnia due to medical condition (G47.01) Active confirmed Problem Essential hypertension (56057377) Essential (primary) hypertension (I10) Active confirmed Problem Ventricular tachycardia (76081856) Ventricular tachycardia (I47.2) Active confirmed Problem Paroxysmal atrial fibrillation (341673683) Paroxysmal atrial fibrillation (I48.0) Active confirmed Problem Ventricular fibrillation (25719388) Ventricular fibrillation (I49.01) Active confirmed Problem Stricture of artery (37693110) Stricture of artery (I77.1) Active confirmed Problem Chronic ulcer of skin (44983108) Non-pressure chronic ulcer of skin of other sites with unspecified severity (L98.499) Active confirmed Problem Long-term current use of anticoagulant (505822600) 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) Active confirmed Problem Mixed anxiety and depressive disorder (361296618) Depression with anxiety (F41.8) Active confirmed Problem Neuropathy (431253793) Neuropathy (G62.9) Active confirmed Problem Essential hypertension (10160795) Essential hypertension (I10) Active confirmed Problem Hyperlipidaemia (06422635) Hyperlipemia (E78.5) Active confirmed Problem Atrial fibrillation (68483547) Atrial fibrillation (I48.91) Active confirmed Problem Gastroesophageal reflux disease without esophagitis (798642987) Gastroesophageal reflux disease without esophagitis (K21.9) Active confirmed Problem Atherosclerotic heart disease of hopi coronary artery without angina pectoris (729993908078142) Coronary artery disease involving hopi coronary artery of hopi heart without angina pectoris (I25.10) Active confirmed Problem COPD - Chronic obstructive pulmonary disease (25708130) Chronic obstructive pulmonary disease, unspecified COPD type (J44.9) Active confirmed Problem Chronic systolic heart failure (202146399) Chronic systolic heart failure (I50.22) Active confirmed Problem Chronic bronchiolitis (811160607) Chronic bronchiolitis (J44.9) Active confirmed Problem Peripheral arterial disease (688205471) Peripheral arterial disease (I73.9) Active confirmed Problem Kidney stone (88491265) Kidney stone (N20.0) Active confirmed Problem Generalized anxiety disorder (95144034) TRISH (generalized anxiety disorder) (F41.1) Active confirmed Problem Insomnia (320458673) Insomnia, unspecified type (G47.00) Active confirmed Problem Ventricular tachyarrhythmia (8435695) Ventricular tachyarrhythmia (I47.2) Active confirmed Problem Cardiac pacemaker in situ (750939103) History of pacemaker (Z95.0) Active confirmed Problem Atherosclerosis of coronary artery (858410702) Atherosclerosis of hopi coronary artery of hopi heart with other form of angina pectoris (I25.118) Active confirmed Problem Automatic implantable cardiac defibrillator in situ (398826513) Presence of automatic implantable cardioverter-defib rillator (Z95.810) Active confirmed Problem Mass of right adrenal gland (finding) (66099124804444685) Adrenal mass, right (E27.9) Active confirmed Problem Seasonal allergic rhinitis (011197763) Seasonal allergic rhinitis, unspecified allergic rhinitis trigger (J30.2) Active confirmed Problem Old myocardial infarction (2883744) History of ST elevation myocardial infarction (STEMI) (I25.2) Active confirmed Problem Automatic implantable cardiac defibrillator in situ (009472908) Presence of combination internal cardiac defibrillator (ICD) and pacemaker (Z95.810) Active confirmed Problem Arteritic leg ulcer (disorder) (384720685) Arterial leg ulcer (L97.909) Active confirmed Problem Chronic obstructive pulmonary disease (34928953) Advanced COPD (J44.9) Active confirmed Problem Betaxolol allergy (557986808) Betaxolol allergy (Z88.8) Active confirmed Problem Hypertensive heart failure (92329965) Unspecified hypertensive heart disease with heart failure (I11.0) Active confirmed Vital Signs Heart Rate 94 /min 06/19/2025 Temperature 95 degrees Fahrenheit 06/19/2025 Blood pressure diastolic 82 mm Hg 06/19/2025 Height 64 in 06/19/2025 Blood pressure systolic 130 mm Hg 06/19/2025 Weight 154 lbs 06/19/2025 BMI 26.43 kg/m2 06/19/2025 Encounters Encounter Location Date Provider Diagnosis [facility] [address] [facility] [address] [place], [place] [address] 12/30/2024 Provider Migration [facility] [address] [facility] [address] [place] [address] 06/19/2025 Sarah Wing Routine medical exam Z00.00 ; Coronary artery disease involving hopi coronary artery of hopi heart without angina pectoris I25.10 ; Gastroesophageal reflux disease without esophagitis K21.9 ; Chronic systolic heart failure I50.22 ; Peripheral arterial disease I73.9 ; Paroxysmal atrial fibrillation I48.0 ; Hyperlipemia E78.5 ; Essential hypertension I10 ; History of tobacco use Z87.891 ; Medically noncompliant Z91.199 and Encounter for immunization Z23 [facility] [address] [facility] [address] [place] [address] 02/27/2025 Sarah Wing Routine medical exam Z00.00 ; Coronary artery disease involving hopi coronary artery of hopi heart without angina pectoris I25.10 ; Gastroesophageal reflux disease without esophagitis K21.9 ; Chronic systolic heart failure I50.22 ; Peripheral arterial disease I73.9 ; Paroxysmal atrial fibrillation I48.0 ; Hyperlipemia E78.5 ; 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 Z79.01 ; Essential hypertension I10 ; Encounter for screening for malignant neoplasm of colon Z12.11 ; Visit for screening mammogram Z12.31 and BMI 26.0-26.9,adult Z68.26 [facility] [address] [place], [place] [address] 06/19/2025 Sarah McNees [facility] [address] [address] 10/02/2024 William Besson [facility] [address] [place] [address] 01/29/2025 Sarah McNees [facility] [address] [place] [address] 02/27/2025 Sarah McNees [facility] [address] [place] [address] 03/05/2025 William Besson [facility] [address] [facility] [address] [place], [place] [address] 03/21/2025 Sarah McNees Abnormal mammogram R 92.8 Assessments Encounter Date Diagnosis (ICD Code) Assessment Notes Treatment Notes Treatment Clinical Notes Section Notes 02/27/2025 Routine medical exam (ICD-10 - Z00.00) Needs mammogram and cologuard, will arrange again 02/27/2025 Coronary artery disease involving hopi coronary artery of hopi heart without angina pectoris (ICD-10 - I25.10) No acute angina. Keep FU with cardiology 03/21/2025 Abnormal mammogram (ICD-10 - R92.8) 06/19/2025 Routine medical exam (ICD-10 - Z00.00) Labs will be drawn today and reviewed personally to evaluate efficacy of current medication regimen. Needs cologuard, will arrange again Pt was advised to reach out if she has not been scheduled for her imaging follow-up based on her mammogram and breast ultrasound findings by August 27. 06/19/2025 Coronary artery disease involving hopi coronary artery of hopi heart without angina pectoris (ICD-10 - I25.10) No acute angina. Keep FU with cardiology 02/27/2025 Gastroesophageal reflux disease without esophagitis (ICD-10 - K21.9) well controlled on PPI 06/19/2025 Gastroesophageal reflux disease without esophagitis (ICD-10 - K21.9) Well controlled on PPI, continue therapy. 06/19/2025 Chronic systolic heart failure (ICD-10 - I50.22) Euvolemic today on exam, no current concerns or changes made today. Told to continue f/u with Cardiology. 02/27/2025 Chronic systolic heart failure (ICD-10 - I50.22) Euvolemic today on exam 02/27/2025 Peripheral arterial disease (ICD-10 - I73.9) Risk factor modification, refrain from smoking maximize LDL, blood pressure control. Keep FU with vascular surgery and podiatry 06/19/2025 Peripheral arterial disease (ICD-10 - I73.9) Risk factor modification, refrain from smoking maximize LDL, blood pressure control. Keep FU with vascular surgery and podiatry. 02/27/2025 Paroxysmal atrial fibrillation (ICD-10 - I48.0) Rate well controlled. Eliquis for anticoagulation. No signs of excessive bleeding. 06/19/2025 Paroxysmal atrial fibrillation (ICD-10 - I48.0) Rate well controlled. Eliquis for anticoagulation. No signs of excessive bleeding. Labs will be drawn today and reviewed personally to evaluate efficacy of current medication regimen. 06/19/2025 Hyperlipemia (ICD-10 - E78.5) On repatha, tolerates well. Labs will be drawn today and reviewed personally to evaluate efficacy of current medication regimen. 02/27/2025 Hyperlipemia (ICD-10 - E78.5) On repatha, tolerates well. 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 06/19/2025 History of tobacco use (ICD-10 - Z87.891) Pt reports smoking cessation status at this time. Pt was encouraged to continue. 02/27/2025 Essential hypertension (ICD-10 - I10) Blood pressure at goal. 02/27/2025 Encounter for screening for malignant neoplasm of colon (ICD-10 - Z12.11) 06/19/2025 Medically noncompliant (ICD-10 - Z91.199) Pt explains she has been making an effort to be more compliant, pt was encouraged to continue her efforts and follow-up as needed. 06/19/2025 Encounter for immunization (ICD-10 - Z23) Flu shot administered and tolerated well. 02/27/2025 Visit for screening mammogram (ICD-10 - [...] CT Scan : Abdomen Adrenal Protocol 07/17 M-Complete Blood Count Auto Diff 025 M-Comprehensive Metabolic Panel 06/19/20 25 M-Lipid Panel 06/19/2025 LIPID PANEL, STANDARD (7600) 02/27/2025 LIPID PANEL, STANDARD (7600) 10/19/2023 COMPREHENSIVE METABOLIC PANEL (59986) COMPREHENSIVE METABOLIC PANEL (37878) CBC (INCLUDES DIFF/PLT) (6399) 5 CBC (INCLUDES DIFF/PLT) (6399) 4 Insurance Providers Payer Name Payer Address Payer Phone Subscriber Number Group Number Insured Name Patient Relationship to Insured Coverage Start Date Coverage End Date [employer] [facility] [address] [address] [place] [phone] [id number] Ashley Ding Self - patient is the insured Medications Administered Medication Instructions Date of Administration Dosage Notes Kenalog 40mg 07/27/2017 40 mg Medical (General) History Medical History History ICD Code hypertension emphysema HLD CAD COPD STEMI with 3 NORI to RCA Pacemaker 6/17 Heart Cath- EF 30%, Echo EF 25% Surgical History Surgery Date(Month/Year) cardiac stents x 3 06/2016 right femur fx repair colonoscopy Barium enema 09/2016 Pacemaker 11/05/2016 Heart Cath- Stent placed in right leg Pacemaker/Defibrillator 04/12/2017 Kidney stent 08/2021 Angiogram-lt leg 02/2022 Left foot surgery 05/2022 Left 2nd Digit amputation 02/2023 Angiogram 01/28/23 Transmetatarsal Amputation of Left toe Heart Cath-1 Cardiac Stent 04/2025 Hospitalization History Reason Date(Month/Year) chest pain 2006 [place] 06[place] [place] defibrill[facility], foot infection 12/2021
--- OUTSIDE RECORDS SUMMARY | 2025-06-19 11:27 | XMS_ITS | Clinical Summary ---
Author Organization Healthcare Address [address] [place] [address] Care Team Providers Care Operations Superintendent Name Role Phone Fariha Henderson APRN Primary Care Provider [phone] Social History Tobacco Use Types Packs/Day Years Used Date Smoking Tobacco: Never Assessed Comments Unknown Sex and Gender Information Value Date Recorded Sex Assigned at Not on file Legal Sex Female 7:27 PM EDT Gender Identity Not on file Sexual Orientation Not on file Plan of Treatment Not on file Care Teams Operations Superintendent Relationship Specialty Start Date End Date Fariha Henderson APRN [address] [place] [address] PCP - General 02/07/21
--- OUTSIDE RECORDS SUMMARY | 2025-06-19 11:27 | XMS_ITS | Clinical Summary ---
Author Organization [facility] Address [address] [facility] [address] [place] [phone] Phone Care Team Providers Care Airplane Patroller Name Role Phone González Gotti MD Unavailable [phone] Cristi Cleaning MD Unavailable [phone] William Hunter MD Primary Care Provider [phone] Allergies Active Allergy Reactions Criticality Noted Date Comments Atorvastatin Myalgia High 07/01/2023 Codeine Itching Low nausea Ezetimibe Myalgia High 07/01/2023 Hydrocodone Itching Low nausea Promethazine Other (See Comments) Low 06/12/2022 Made legs restless And also very sleepy Rosuvastatin Myalgia High 07/01/2023 Simvastatin Myalgia High 07/01/2023 Kiexobk-Bzb-Eho Reductase Inhibitors Other (See Comments) 01/02/2025 Joint [...] 3 Active Additional Information Patient not taking.Reason: Pt electing to not take the medication, Informant: Self/Patient, Reported on 06/11/2025 fluticasone propionate (FLONASE) 50 mcg/actuation Nasl [place], Suspension 1 spay each nostril twice daily 1 Each 3 3 Active oxymetazoline (AFRIN) 0.05 % Nasl [place], Non-Aerosol 1 [place] by Nasal route as needed for Congestion [...] 03/05/22 [facility] #[id number] (as expected) Kashif Wong MD Problem Noted [...] situ 12/07/2023 Insomnia 12/07/2023 Kidney stone 12/07/2023 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 0 12/07/2023 Neuropathy 12/07/2023 Non-pressure chronic ulcer o f skin of other sites with unspecified severity 12/07/2023 Palpitations 12/07/2023 Atrial fibrillation with rapid ventricular respo nse 12/07/2023 Seasonal allergic rhinitis 12/07/2023 Sinusitis 12/07/2023 Stented coronary artery 12/07/2023 Typical angina 12/07/2023 Ventricular fibrillation 12/07/2023 Ventricular fibrillation seen on surveillance system monitor 12/07/2023 Ventricular tachyarrhythmia 12/07/2023 Failed flap 06/28/2023 Skin flap necrosis 06/28/2023 Atherosclerosis of artery of extremity with ulce ration 06/02/2023 PAD (peripheral artery disease) 06/01/2023 S/P foot surgery 06/01/2023 Cellulitis of left lower extremity 05/28/2023 Open wound of left foot 04/26/2023 Overview (04/26/2023): Added automatically from request for surgery [id number] Hammertoe of left foot 06/08/2022 Overview (06/08/2022): Added automatically from request for surgery [id number] Pain in left foot 06/08/2022 Overview (06/08/2022): Added automatically from request for surgery [id number] Gangrene of left foot 06/08/2022 Overview (06/08/2022): Added automatically from request for surgery [id number] Vaping nicotine dependence, non-tobacco product 03/05/2022 COPD [...] (02/08/2023): Added automatically from request for surgery [id number] Osteomyelitis of second toe of left foot 02/05/2023 06/01/2023 Overview (02/05/2023): Added automatically from request for surgery [id number] Atherosclerosis of [place] of left lower extremity with ulceration 09/07/2022 06/01/20 23 Atherosclerosis of [place] of left lower extremity with gangrene 03/05/2022 06/01/2023 KS (myocardial infarction) 06/27/2016 0 06/01/2023 STEMI (ST elevation myocardial infarction) 06/01/2023 Overview (04/05/2017): STEMI with 3 NORI to RCA Foot ulceration, left, with necrosis of muscle 04/07/2024 Chronic toe ulcer, left, wit h necrosis of bone 06/01/2023 Encounters Date Type Department Care Team Description 06/11/2025 2:45 PM EDT - 06/11/2025 11:59 PM EDT Hospital Encounter [facility] [place] [address] [place] [address] Cristi Pelletier DPM Pressure ulcer of left heel, stage 4 (HCC) (Primary Dx); 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) Discharge Disposition: Home or Self Care 06/04/2025 2:01 PM EDT - 06/04/2025 11:59 PM EDT Hospital Encounter [facility] [place] [address] [place] [address] Cristi Pelletier DPM Pressure ulcer of left heel, stage 4 (HCC) (Primary Dx) Discharge Disposition: Home or Self Care 05/14/2025 2:44 PM EDT - 05/14/2025 11:59 PM EDT Hospital Encounter [facility] [place] [address] [place] [address] Cristi Pelletier DPM Pressure ulcer of left heel, stage 4 (HCC) (Primary Dx); 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) Discharge Disposition: Home or Self Care 05/07/2025 1:45 PM EDT - 05/07/2025 11:59 PM EDT Hospital Encounter [facility] [place] [address] [place] [address] Cristi Pelletier DPM Pressure ulcer of left heel, stage 4 (HCC) (Primary Dx) Discharge Disposition: Home or Self Care 04/23/2025 2:30 PM EDT - 04/23/2025 11:59 PM EDT Hospital Encounter [facility] [place] [address] [place] [address] Jabari Corado Jr., MD Pressure ulcer of left heel, stage 4 (HCC) (Primary Dx); 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) Discharge Disposition: Home or Self Care 04/16/2025 2:30 PM EDT - 04/16/2025 11:59 PM EDT Hospital Encounter [facility] [place] [address] [place] [address] Cristi Pelletier DPM 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) (Primary Dx); Pressure ulcer of left heel, stage 4 (HCC) Discharge Disposition: Home or Self Care 03/27/2025 8:00 AM EDT Office Visit [facility] [address] [place] [phone] Vishnu Penn MD PAD (peripheral artery disease) (Primary Dx); Former smoker-quit 2021; Small vessel disease 03/26/2025 1:15 PM EDT - 03/26/2025 11:59 PM EDT Hospital Encounter [facility] [place] [address] [place] [address] Cristi Pelletier DPM Pressure ulcer [...] IR REVAS FEM POP ART UNILAT W VAULT INSTALLER 03/13/2022 IR REVAS FEM POP ART UNILAT W VAULT INSTALLER 03/13/2022 Kashif Wong MD [facility] IR COLONOSCOPY HAMMER TOE SURGERY 06/15/2022 Foot/Ankle/Left Left foot Correction of hammer toe deformity with arthroplasty second and third toe. Left foot Application of skin graft substitute.; Surgeon: Jabari Hill DPM; Location: [facility]; Service: Podiatry Medical devices from this surgery are in the Medical Devices section. SKIN GRAFT 06/15/2022 Left Surgeon: Jabari Hill DPM; Location: [facility]; Service: Podiatry Medical devices [...] substitute. ; Surgeon: Jabari Hill DPM; Location: [facility]; Service: Orthopedics Medical devices from this surgery are in the Medical Devices section. SKIN GRAFT 12/23/2022 Left . ; Surgeon: Jabari Hill DPM; Location: [facility] [...] 02/10/2023 Foot/Ankle/Left Surgeon: Jabari Hill DPM; Location: [facility]; Service: Orthopedics Medical devices from this surgery are in the Medical Devices section. SKIN GRAFT 02/10/2023 Surgeon: Jabari Hill DPM; Location: [facility]; Service: Orthopedics Medical devices from this surgery are in the Medical Devices section. TOE AMPUTATION 05/19/2023 Foot/Ankle/Left Left Left Left foot, amputation of third toe. Left foot, wound debridment application. Left foot, skin graft substitute. Left foot wound debridment closure.; Surgeon: Jabari Hill DPM; Location: [facility]; Service: Orthopedics Medical devices from this surgery are in the Medical Devices section. DEBRIDEMENT 05/19/2023 Left .; Surgeon: Jabari Hill DPM; Location: [facility]; Service: Orthopedics Medical devices from this surgery are in the Medical Devices section. LAYER WOUND CLOSURE 05/19/2023 Left .; Surgeon: Jabari Hill DPM; Location: [facility] [...] IR REVAS FEM POP ART UNILAT W VAULT INSTALLER 06/02/2023 IR REVAS FEM POP ART UNILAT W VAULT INSTALLER 06/02/2023 Vishnu Penn MD EDG IR IR [...] IR REVAS FEM POP ART UNILAT W VAULT INSTALLER 12/28/2024 IR REVAS FEM POP ART UNILAT W VAULT INSTALLER 12/28/2024 Vishnu Penn MD EDG IR IR [...] disease) STEMI (ST elevation myocardi al infarction) (HCC) STEMI with 3 NORI to RCA Cardiac pacemaker SJM Dual PPM - Dr. Cleaning History of cardiac cath 03/23/[address] aced in Right leg 03/23/2017 KS (myocardial infarction) (HCC) 06/2016 Depression with anxiety Essential hypertension Chronic [...] drink = 0.6 oz pur e alcohol) [facility] Utilities Answer Date Recorded In the past 12 months has e [place], gas, oil, or water iversity threatened to shut off services in your home? No 12/28/2024 Overall Financial Resource Strain (CARDIA) Answe r Date Recorded How hard is it for you to pa y for the very basics like food, housing, medical care, and heating? Not hard at all 12/28/2024 PHQ-2 Answer Date Recorded PHQ-2 Total Score 0 12/28/2024 [facility] [place] of Occupat ional Health - Occupational Stress [...] things needed for daily living? No 05/29/2023 [facility] IP Transportation Answer D ate [...] 16 06/11/2025 2:56 PM EDT Oxygen Saturation 96% 01/01/2025 2:00 [...] 06/25/2025 2:45 PM EDT Appointment [facility] [address] [place] [address] Cristi Pelletier, DPM [address] [facility] [address] [place] [address] 11/12/2025 1:30 PM EST Appointment [facility] [address] [facility] [address] [place] [address] January, Nette Rand, SHELLFISH BED WORKER [address] [facility] [address] [place], [place] [id number] 11/12/2025 2:40 PM EST Office Visit [facility] [address] [facility] [address] [place] [address] JanuaryNette SHELLFISH BED WORKER [address] [facility] [address] [address] [place], [place] [id number] Health Maintenance Due Date Last Done Comments [...] Colonography 2010 Zoster (1 of 2) 2015 DTaP/TDaP/Td (2 - Td or Tdap) 08/30/2024 08/30/2014, 06/21/1998 COVID-19 Vaccine ( season) 2025 04/08/2022, 08/27/2021, 01/08/2021, Additional history exists Influenza Vaccine (#1) 2025 2, 07/09/2021, 07/13/2017, [...] tibial pulses. Medical Devices Implanted Type Area Hoist Mechanic Device Identifier Shelf Expiration Date Model / Serial / Lot Defib Graft Tissue Myriad Thin 5 X 5cm - [id number] Implanted:Qty: 1 on 06/15/2022 by Jabari Hill DPM at [facility] Left: Foot AROA [employer]OS[employer] 07/27/2022 [id number] US / / [id number] Wire Denise 0.087zsj9.5in [employer] [facility] Pnt - [id number] Implanted:Qty: 2 on 06/15/2022 by Jabari Hill DPM at [facility] Left: Foot MICROAIRE SURG INSTR 11/22/2025 [id number] / / [id number] Stent Enpros 8mm 7fr Intro 38mm 80cm Icast Trachbr Be Cvr-11/04/2022 Implanted:Qty: 1 on 11/04/2022 by Vishnu Penn MD Left: Iliac Artery GETINGE INDUSTIER:GETINGE [facility] [id number] / / [id number] Graft Tissue Myriad Thin 5 X 5cm - [id number] Implanted:Qty: 1 on 12/23/2022 by Jabari Hill, STANLEYM at [facility] Left: Foot AROA BIOSURGERY 02/24/2025 [id number] US / / [id number] Graft Ovine Tissue 500mg Beatriz Duque - [id number] Implanted:Qty: 1 on 12/23/2022 by Jabari Hill, DPM at [facility] Left: Foot AROA [employer]OSURGERY 07/27/2023 [id number] / / [id number] Graft Tissue Myriad Thin 5 X 5cm - [id number] Implanted:Qty: 1 on 02/10/2023 by Jabari Hill, STANLEYM at [facility] Left: Heel AROA BIOSURGERY 03/26/2025 [id number] US / / [id number] Graft Tissue Myriad Thin 5 X 5cm - [id number] Implanted:Qty: 1 on 05/19/2023 by Jabari Hill, DPM at [facility] Left: Foot [employer]OA [employer]OSURGERY 03/26/2025 [id number] US / / [id number] Graft Tissue Myriad Thin 5 X 5cm - [id number] Implanted:Qty: 1 on 06/06/2023 by Jabari Hill, DPM at [facility] Left: Heel AROA BIOSURGERY 02/24/2025 [id number] US / / [id number] Insurance [facility] [address] [facility] [place] [address] [facility] [address] Advance Directives For more information, please contact: [phone] * Full Code (Latest Code Status on File) Date Activated Date Inactivated Comments 12/27/2024 10:43 PM 01/01/2025 9:14 PM * Full Code Date Activated Date Inactivated Comments 05/28/2023 10:35 AM 06/11/2023 9:55 PM Care Teams Airplane Patroller Relationship Specialty Start Date End Date William Hunter MD [address] [place] [address] [place] [phone] PCP - General Internal Medicine-Adolescent Medicine 05/28/23 González Gotti MD [address] [place] [address] [place] [address] Consulting Physician Internal Medicine - Clinical Cardiac Electrophysiology 04/05/17 Cristi Cleaning MD [address] [place] [address] [place] [address] Physician Internal Medicine-Cardiovascular Disease 04/05/17
--- OUTSIDE RECORDS SUMMARY | 2025-06-19 11:27 | XMS_ITS | Encounter Summary ---
Author Organization Healthcare Address [address] [place] [address] Care Team Providers Care Color Television Console Monitor Name Role Phone Fariha Henderson APRN Primary Care Provider [phone] Encounter Details Date Type Department Care Team (Late st Contact Info) Description 02/18/2022 Community [facility] [address] [place] [address] Jabari Goetz MD [address] [facility] [address] [place] [address] PAD (peripheral artery disease) (CMS/HCC) [...] Diagnosis PAD (peripheral artery disease)- Primary Unspecified peripheral vascular disease documented in this encounter Care Teams Color Television Console Monitor Relationship Specialty Start Date End Date Fariha Henderson APRN [address] [place] [address] PCP - General 02/07/21 documented as of this encounter
[2025-06-19 12:16] LABS: Hematocrit 41.8 % (37.0-47.0); Hemoglobin 14.0 g/dL (12.2-16.2); Immature Granulocytes % 0.3 %; Mean Corpuscular HGB Conc 33.5 g/dL (31.8-35.4); Mean Corpuscular Hemoglobin 29.8 pg (27.0-31.2); Mean Corpuscular Volume 88.9 fl (81-99); Nucleated Red Blood Cells % 0 %; Platelet Count 241 K/mm3 (142-424); Red Blood Count 4.70 M/mm3 (4.20-5.40); Red Cell Distribution Width-SD 44.3 fL; White Blood Count 6.3 K/mm3 (4.8-10.8)
[2025-06-19 12:48] LABS: Albumin Level 4.5 g/dl (3.5-5.0); Chloride 104 mmol/L (98-107); Potassium 3.9 mmoL/L (3.5-5.1); Sodium 140 mmol/L (136-145)
[2025-06-19 12:50] LABS: Blood Urea Nitrogen 15 mg/dl (7-17); Creatinine,Serum 0.80 mg/dl (0.52-1.04); Estimated Glomerular Filt Rate 73 ml/min (>60); GFR (African American) 89 ML/MIN (>60)
[2025-06-19 12:51] LABS: Alanine Aminotransferase 22 U/L (12-78); Albumin/Globulin Ratio 1.8 (1.1-1.8); Alkaline Phosphatase 79 U/L (38-126); Anion Gap 15.9 mEq/L (5-15); Aspartate Amino Transferase 30 U/L (14-36); Bilirubin,Total 0.7 mg/dl (0.2-1.3); Calcium 9.4 mg/dl (8.4-10.2); Carbon Dioxide 24 mmol/L (22.0-30.0); Cholesterol 220 mg/dl (140-200); Globulin 2.5 g/dL (1.3-3.2); Glucose 109 mg/dl (74-100); Total Protein,Serum 7.0 g/dl (6.3-8.2)
[2025-06-19 12:52] LABS: HDL Cholesterol 35 mg/dl (40-60)
[2025-06-19 12:58] LABS: Triglycerides 712 mg/dl (30-150)
[2025-06-20 13:48] LABS: Hemoglobin A1C 5.4 % (4.0-6.0)
== END 2025-06-19 23:59 | disposition home or self-care (01) ==
LOC: LAB 11:25
PROVIDERS: PCP Nurse Practitioner Family; Visit Provider Nurse Practitioner Family
DX: Z00.00 Encounter for general adult medical examination without abnormal findings (principal); E78.5 Hyperlipidemia, unspecified; I48.0 Paroxysmal atrial fibrillation
CPT/HCPCS: 80053; 80061; 83036; 85025

== ENCOUNTER 2025-06-29 14:21 | Outpatient (CLI) | payer OTHER, SELFPAY ==
--- OUTSIDE RECORDS SUMMARY | 2024-12-30 17:30 | XMS_ITS ---
Author Organization [facility] D [facility] Address [address] [place] [address] Care Team Providers Care Wallpaper Embosser Helper Name Role Phone William Hunter Primary Care Provider [phone] Sarah Wing Unavailable [phone] Migration, Provider Unavailable Unavailable Allergies Allergen (clinical drug ingredient) Drug/Non Drug Allergy documented on EMR Reaction Allergy Type Onset Date Status Substance with 8-jaczdhj-4-methylg lutaryl-coenzyme A reductase inhibitor mechanism of action (substance) Statins couldnt walk Drug Allergy Active codeine Codeine Unknown Drug Allergy Active hydrocodone HYDROcodone itchy and nausea Drug Allergy Active [facility] Encounter Medications Medication SIG (Take, Route, Frequency, Duration) Notes Start Date End Date Status Metoprolol Succinate ER 100 MG TAKE 1 AND 1/2 TABLET BY MOUTH TWICE DAILY; Duration: 30 days Active Aspirin 81 MG 1 TAB(S) ORALLY ONCE A DAY *Please review and pick correct strength-formula [facility]ion [facility]. If intended option is [...] Active Encounters Encounter Location Date Provider Diagnosis [place] [facility] [address] [facility] [address] [place] [address] 12/30/2024 Provider Migration Plan Of Treatment Medication [...] Notes * Rodo GLEZB:1965 (59 yo F)Acc No.[id number]:12/30/2024 Patient: Ashley NICOLE Provider: Janell elizabeth Migration :1965 Mamta ge:59 Y S ex:Female Date:12/30/2024 [address] [id number] Pcp:William Hunter Subjective: * Chief Complaints: * 1 . Multum To Medispan Conversion Encounter. * Medical History: * Medications: T aking Aspirin 81 MG TABLET 1 TAB(S) ORALLY ONCE A DAY , Notes to Pharmacist: *Please review and pick correct strength-formulation from [email or web address] options. If intended option is not shown, [...] Electronic signature of Prov ider Migration on 06/29/2025 at 02:23 PM EDT Sign off status: Pending * Provider: Janell elizabeth Migration Date: 0 12/30/2024 Generated for Zuleima crockett/Joe/Farrukh on: 1 02:23 PM EDT
--- OUTSIDE RECORDS SUMMARY | 2025-05-07 13:45 | XMS_ITS | Encounter Summary ---
Author Organization [place] [address] Care Team Providers Care Inclusion Teacher Name Role Phone González Gotti MD Unavailable [phone] Cristi Cleaning MD Unavailable [phone] William Hunter MD Primary Care Provider [phone] Reason for Referral * In Office Procedure (Routine) - Pending Review Specialty Diagnoses / Procedures Referred By Contac t Referred To Contact Diagnoses Pressure ulcer of left heel, stage 4 (HCC) Procedures WA DEBRIDEMENT MUSCLE &/FASCIA 1ST 20 SQ CM/< Cristi Pelletier DPM [address] [place] [id number] Phone: tel: fax: Referral ID Status Reason Start Date Expiration Date V isits Requested Visits Authorized [id number] Pending Review 05/12/2025 05/12/2026 1 1 * (Routine) - Pending Review Specialty Diagnoses / Procedures Referred By Contac t Referred To Contact Diagnoses Pressure ulcer of left heel, stage 4 (HCC) Procedures [facility] Cristi Pelletier DPM [address] [address] Phone: tel: fax: Referral ID Status Reason Start Date Expiration Date V isits Requested Visits Authorized [id number] Pending Review 05/07/2025 05/07/2026 1 1 Reason for Visit * Reason Comments Wound Check * Consultation (Routine) - Authorization Not Needed Specialty Diagnoses / Procedures Referred By Brian t Referred To Contact Wound Care Diagnoses Wound Care Procedures WA DEBRIDEMENT SUBCUTANEOUS TISSUE 1ST 20 SQ CM/< WA DEBRIDEMENT MUSCLE &/FASCIA 1ST 20 SQ CM/< WA DEBRIDEMENT BONE 1ST 20 SQ CM/< WA DEBRIDEMENT SUBCUTANEOUS TISSUE EA ADDL 20 SQ CM WA DEBRIDEMENT MUSCLE &/FASCIA EA ADDL 20 SQ CM WA DEBRIDEMENT BONE EACH ADDITIONAL 20 SQ CM WA DEBRIDEMENT OPEN WOUND FIRST 20 SQ CM/< WA DEBRIDEMENT OPN WND EA ADDL 20 SQ CM/PRT THEREOF [facility] [address] [facility] [place] [address] Phone: tel: fax: Referral ID Status Reason Start Date Expiration Date Visits Requested Visits Authorized [id number] Authorization Not Needed Specialty Services Required 5 01/08/2026 99 99 Encounter Details Date Type Department Care Team (Latest Contact Info) Description 05/07/2025 1:45 PM EDT - 05/07/2025 11:59 PM EDT Hospital Encounter [facility] [address] [place] [address] Cristi Pelletier DPM [address] [address] Pressure ulcer of left heel, stage 4 (HCC) (Primary Dx) Discharge Disposition: Home or Self Care Social History Tobacco Use Types Packs/Day Years Used Date Smoking Tobacco: Former Cigarettes 0.3 40 0 12/26/1981 - 12/26/2021 Passive Smoke Exposure: Past Smokeless Tobacco: Never Alcohol Use Standard Drinks/Week Comments Not Currently 0 (1 standard drink = 0.6 oz pur e alcohol) [facility] Utilities Answer Date Recorded In the past 12 months has e [employer] gas, oil, or water company threatened to shut off services in your home? No 12/28/2024 Overall Financial Resource Strain (CARDIA) Answe r Date Recorded How hard is it for you to pa y for the very basics like food, housing, medical care, and heating? Not hard at all 12/28/2024 PHQ-2 Answer Date Recorded PHQ-2 Total Score 0 12/28/2024 [facility] of Occupat ional Health - Occupational Stress [...] things needed for daily living? No 05/29/2023 [facility] IP Transportation Answer D ate Recorded In [...] by mouth 2 times daily. 10/03/2024 evolocumab (REPPHILLIPA LUISICK) 140 mg/mL SubQ Pen Injector Subcutaneous (Inject under the skin) 140 mg every 14 days. fluticasone propionate (FLONASE) 50 mcg/actuation Nasl [place], Suspension 1 spay each nostril twice daily [...] Chest pain. oxymetazoline (AFRIN) 0.05 % Nasl [place], Non-Aerosol 1 [place] by Nasal route as needed for Congestion [...] - Dr. Cleaning Chronic systolic heart failure ([facility]) COPD (chronic obstructive pulmonary disease) ([facility]) Depression with anxiety Emphysema, unspecified ([facility]) Essential hypertension Headache Heartburn History of cardiac cath 03/23/2017 Stent placed in Right leg 03/23/2017 HLD (hyperlipidemia) Hypertension FL (myocardial infarction) ([facility]) 06/2016 Pacemaker Post-operative nausea and vomiting Sinus node dysfunction ([facility]) 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 Cleaning STEMI (ST elevation myocardial infarction) ([facility]) STEMI with 3 NORI to RCA Systolic heart failure ([facility]) 02/2017 ECHO, EF 25% Past Surgical History: Procedure Laterality Date CARDIAC CATHETERIZATION Right 03/23/2017 stent placed in right leg CARDIAC PACEMAKER PLACEMENT 11/05/2016 SJM Dual PPM COLONOSCOPY CORONARY ANGIOPLASTY WITH STENT PLACEMENT 06/2016 x3 DEBRIDEMENT Left 05/19/2023 .; Surgeon: Jabari Hill DPM; Location: [facility]; Service: Orthopedics FEMUR FRACTURE SURGERY Right right femur fx repair FOOT SURGERY FOOT SURGERY Left 12/23/2022 Left foot heel and second and third toe debridement with application of skin graft substitute. ; Surgeon: Jabari Hill DPM; Location: [facility]; Service: Orthopedics FOOT SURGERY Left 02/10/2023 Surgeon: Jabari Hill DPM; Location: [facility]; Service: Orthopedics FOOT SURGERY Left 06/06/2023 left FOOT TRANSMETATARSAL amputation; Surgeon: Jabari Hill DPM; Location: [facility] MAIN OR; Service: Podiatry HAMMER TOE SURGERY Left 06/15/2022 Left foot Correction of hammer toe deformity with arthroplasty second and third toe. Left foot Application of skin graft substitute.; Surgeon: Jabari Hill DPM; Location: [facility]; Service: Podiatry HIP SURGERY [...] IR REVAS FEM POP ART UNILAT W BIOFUELS PLANT MANAGER 03/13/2022 IR REVAS FEM POP ART UNILAT W BIOFUELS PLANT MANAGER 03/13/2022 Kashif Wong MD EDG IR IR REVAS FEM POP ART UNILAT W BIOFUELS PLANT MANAGER 06/02/2023 IR REVAS FEM POP ART UNILAT W BIOFUELS PLANT MANAGER 06/02/2023 Vishnu Penn MD EDG IR IR REVAS FEM POP ART UNILAT W BIOFUELS PLANT MANAGER 12/28/2024 IR REVAS FEM POP ART UNILAT W BIOFUELS PLANT MANAGER 12/28/2024 Vishnu Penn MD EDG IR [...] 12/02/2022 IR ULTRASOUND GUIDED VASCULAR ACCESS 12/02/2022 iVshnu Penn MD EDG IR IR ULTRASOUND GUIDED VASCULAR ACCESS 06/02/2023 IR ULTRASOUND GUIDED VASCULAR ACCESS 06/02/2023 Vishnu Penn MD EDG IR IR ULTRASOUND GUIDED VASCULAR ACCESS 12/27/2024 IR ULTRASOUND GUIDED VASCULAR ACCESS 12/27/2024 Vishnu Penn MD [facility]G IR LAYER WOUND CLOSURE Left 05/19/2023 .; Surgeon: Jabari Hill DPM; Location: [facility]; Service: Orthopedics SKIN GRAFT Left 06/15/2022 Surgeon: Jabari Hill DPM; Location: [facility]; Service: Podiatry SKIN GRAFT Left 12/23/2022 . ; Surgeon: Jabari Hill DPM; Location: [facility]; Service: Orthopedics SKIN GRAFT 02/10/2023 Surgeon: Jabari Hill DPM; Location: [facility]; Service: Orthopedics TOE AMPUTATION Left 02/10/2023 Left foot second toe amputation, Left foot excisional debridement with application of skin graft substitute; Surgeon: Jabari Hill DPM; Location: [facility]; Service: Orthopedics TOE AMPUTATION Left 05/19/2023 Left foot, amputation of third toe. Left foot, wound debridment application. Left foot, skin graft substitute. Left foot wound debridment closure.; Surgeon: Jabari Hill DPM; Location: [facility]; Service: Orthopedics Current Outpatient [...] days. fluticasone propionate (FLONASE) 50 mcg/actuation Nasl [place], Suspension 1 spay each nostril twice daily [...] Chest pain. oxymetazoline (AFRIN) 0.05 % Nasl [place], Non-Aerosol 1 [place] by Nasal route as needed for Congestion [...] Myalgia Ezetimibe Myalgia Rosuvastatin Myalgia Simvastatin Myalgia Fhhhlaj-Ytb-Wij Reductase Inhibitors Other (See Comments) Joint pain [...] left heel, stage 4 (HCC) - [facility] - WA DEBRIDEMENT MUSCLE &/FASCIA 1ST 20 SQ CM/< [...] 4x4, roll gauze, every other day. 03/26 [facility] has been contacted to obtain your [...] to reach out to our community health promoter, Hanna Riggs at [phone] for any discussion. WHO TO CALL FOR PROBLEMS: Please call the OP wound care center with any problems or issues you may have after your visit or though the week. Each patient is assigned a immigration case manager who can assist with issues you may be having. Individual office numbers are listed below. Press 1 for immediate or schedule needs, press 2 for the nursing line. The nurse line is for non-emergent needs and will be answered within 24 hours duringbusiness days. If you have a more immediate concern, press option #1. Office numbers: [phone] [place]-[phone] [place]- [phone] Our offices do not have an on-call provider. If you have emergent needs after hours please contact your primary care provider. You may also utilize the [facility] Nurse NOW Helpline: 8-238-0JEB-NOW for after-hours needs to get in contact with a nurse for assistance. 03/26 [facility] has been contacted to obtain your [...] to reach out to our community health promoter, Hanna Riggs at [phone] for any discussion. WHO TO CALL FOR PROBLEMS: Please call the OP wound care center with any problems or issues you may have after your visit or though the week. Each patient is assigned a immigration case manager who can assist with issues you may be having. Individual office numbers are listed below. Press 1 for immediate or schedule needs, press 2 for the nursing line. The nurse line is for non-emergent needs and will be answered within 24 hours duringbusiness days. If you have a more immediate concern, press option #1. Office numbers: [phone] [place]-[phone] [place]- [phone] Our offices do not have an on-call provider. If you have emergent needs after hours please contact your primary care provider. You may also utilize the [facility] Nurse NOW Helpline: 4-240-4FRJ-NOW for after-hours needs to get in contact with a nurse for assistance. documented in this encounter Plan of Treatment Upcoming Encounters Date Type Department Care Team (Late st Contact Info) Description 07/16/2025 2:30 PM EDT Appointment [facility] [place] [place] [address] Cristi Pelletier, DPJeremi [address] [address] 11/12/2025 1:30 PM EST Appointment [facility] [address] [facility] [address] [place] [address] JanuaryNette APRN [address] [place] [address] 11/12/2025 2:40 PM EST Office Visit [facility] [address] [facility] [address] [place] [address] JanuaryNette APRN [address] [place] [address] [address] [place], [place] [id number] Scheduled Orders Name Type Priority Associated Diagnoses Orde r Schedule WA DEBRIDEMENT MUSCLE &/FASCIA 1ST 20 SQ CM/< WA Charge Routine Pressure ulcer of left heel, stage 4 (HCC) Ordered: 05/12/2025 documented as of this encounter Goals Goal Patient Goal Type Associated Problems Recent Progress Patient-Stated? Author Wound Healing General On track(2024 3:31 PM EDT) Tsering Doran, RN Note: Wound [...] 05/07/2025 documented in this encounter Care Teams Inclusion Teacher Relationship Specialty Start Date End Date William Hunter MD [address] [place] [address] [address] [place] [id number] PCP - General Internal Medicine-Adolescent Medicine 05/28/23 González Gotti MD [address] [place] [address] Consulting Physician Internal Medicine - Clinical Cardiac Electrophysiology 04/05/17 Cirsti Cleaning MD [address] [place] [address] [place] [address] Physician Internal Medicine-Cardiovascular Disease 04/05/17 documented as of this encounter
--- OUTSIDE RECORDS SUMMARY | 2025-05-14 14:44 | XMS_ITS | Encounter Summary ---
Author Organization [place] [address] Care Team Providers Care Payroll And Benefits Assistant Name Role Phone González Gotti MD Unavailable [phone] Cristi Cleaning MD Unavailable [phone] William Hunter MD Primary Care Provider [phone] Reason for Referral * In Office Procedure (Routine) - Pending Review Specialty Diagnoses / Procedures Referred By Contac t Referred To Contact Diagnoses 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) Pressure ulcer of left heel, stage 4 (HCC) Procedures NE DEBRIDEMENT SUBCUTANEOUS TISSUE 1ST 20 SQ CM/< Cristi Pelletier DPM [address] [address] Phone: tel: fax: Referral ID Status Reason Start Date Expiration Date V isits Requested Visits Authorized [id number] Pending Review 05/20/2025 05/20/2026 1 1 * (Routine) - Pending Review Specialty Diagnoses / Procedures Referred By Contac t Referred To Contact Diagnoses Pressure ulcer of left heel, stage 4 (HCC) Procedures AMB [facility] PRIMARY DRESSING rCisti Pelletier DPM [address] [address] Phone: tel: fax: Referral ID Status Reason Start Date Expiration Date V isits Requested Visits Authorized [id number] Pending Review 05/15/2025 05/15/2026 1 1 Reason for Visit * Reason Comments Wound Check * Consultation (Routine) - Authorization Not Needed Specialty Diagnoses / Procedures Referred By Contac t Referred To Contact Wound Care Diagnoses Wound Care Procedures NE DEBRIDEMENT SUBCUTANEOUS TISSUE 1ST 20 SQ CM/< NE DEBRIDEMENT MUSCLE &/FASCIA 1ST 20 SQ CM/< NE DEBRIDEMENT BONE 1ST 20 SQ CM/< NE DEBRIDEMENT SUBCUTANEOUS TISSUE EA ADDL 20 SQ CM NE DEBRIDEMENT MUSCLE &/FASCIA EA ADDL 20 SQ CM NE DEBRIDEMENT BONE EACH ADDITIONAL 20 SQ CM NE DEBRIDEMENT OPEN WOUND FIRST 20 SQ CM/< NE DEBRIDEMENT OPN WND EA ADDL 20 SQ CM/PRT THEREOF [facility] W[facility] Care Center [place] [address] [address] [facility] [place] [address] Phone: tel: fax: Referral ID Status Reason Start Date Expiration Date Visits Requested Visits Authorized [id number] Authorization Not Needed Specialty Services Required 5 01/08/2026 99 99 Encounter Details Date Type Department Care Team (Latest Contact Info) Description 05/14/2025 2:44 PM EDT - 05/14/2025 11:59 PM EDT Hospital Encounter [facility] Center [address] [place] [address] Cristi Pelletier DPM [address] [address] Pressure ulcer of left heel, [...] 0.6 oz pur e alcohol) [facility] Utilities Answer Date Recorded In [...] Total Score 0 12/28/2024 [facility] - Occupational Stress Questionnaire Answer Date [...] things needed for daily living? No 05/29/2023 [facility] IP Transportation Answer D ate [...] days. fluticasone propionate (FLONASE) 50 mcg/actuation Nasl [place], Suspension 1 spay each nostril twice daily [...] Chest pain. oxymetazoline (AFRIN) 0.05 % Nasl [place], Non-Aerosol 1 [place] by Nasal route as needed for Congestion [...] Progress Notes * Cristi Pelletier DPM - 05/14/2025 3:15 PM EDT Date of Visit:05/14/2025 Progress Note HPI Ashley Ding is a 59 y.o. year old female patient who presents today for wound evaluation and follow-up. Daily dressing Patient denies any fever, chills, nausea or vomiting Seeing improvement Past Medical History: Diagnosis Date Anesthesia complication only with phenergan, alarming how long it takes her to wake up Asthma Bradycardia CAD (coronary artery disease) Cardiac pacemaker [facility] Dual PPM 11/05/2016 - Dr. Cleaning Chronic systolic heart failure ([facility]) COPD (chronic obstructive pulmonary disease) ([facility]) Depression with anxiety Emphysema, unspecified ([facility]) Essential hypertension Headache Heartburn History of cardiac cath 03/23/2017 Stent placed in Right leg 03/23/2017 HLD (hyperlipidemia) Hypertension CO (myocardial infarction) ([facility]) 06/2016 Pacemaker Post-operative nausea and vomiting Sinus node dysfunction ([facility]) [facility] Dual PPM 11/05/2016 - Dr. Cleaning STEMI (ST elevation myocardial infarction) ([facility]) STEMI with 3 NORI to RCA Systolic heart failure ([facility]) 02/2017 ECHO, EF 25% Past Surgical History: Procedure Laterality Date CARDIAC CATHETERIZATION Right 03/23/2017 stent placed in right leg CARDIAC PACEMAKER PLACEMENT 11/05/2016 [facility] Dual PPM COLONOSCOPY CORONARY ANGIOPLASTY WITH STENT PLACEMENT 06/2016 x3 DEBRIDEMENT Left 05/19/2023 .; Surgeon: Jabari Hill DPM; Location: [facility] OR; Service: Orthopedics FEMUR FRACTURE SURGERY Right right femur fx repair FOOT SURGERY FOOT SURGERY Left 12/23/2022 Left foot heel and second and third toe debridement with application of skin graft substitute. ; Surgeon: Jabari Hill DPM; Location: [facility]; Service: Orthopedics FOOT SURGERY Left 02/10/2023 Surgeon: Jabari Hill DPM; Location: [facility]; Service: Orthopedics FOOT SURGERY Left 06/06/2023 left FOOT TRANSMETATARSAL amputation; Surgeon: Jabari Hill DPM; Location: [facility]; Service: Podiatry HAMMER TOE SURGERY Left 06/15/2022 Left foot Correction of hammer toe deformity with arthroplasty second and third toe. Left foot Application of skin graft substitute.; Surgeon: Jabari Hill DPM; Location: [facility]; Service: Podiatry HIP SURGERY [...] 03/13/2022 IR ANGIOGRAM FEMORAL ARTERIO SHIFT 03/13/2022 Ksahif Wong MD [facility] IR IR ANGIOGRAM FEMORAL ARTERIO SHIFT 11/04/2022 IR ANGIOGRAM FEMORAL ARTERIO SHIFT 11/04/2022 Vishnu Penn MD EDG IR IR ANGIOGRAM FEMORAL ARTERIO SHIFT 06/02/2023 IR ANGIOGRAM FEMORAL ARTERIO SHIFT 06/02/2023 Vishnu Penn MD EDG IR IR ANGIOGRAM FEMORAL ARTERIO SHIFT 12/27/2024 IR ANGIOGRAM FEMORAL ARTERIO SHIFT 12/27/2024 Vishnu Penn MD [facility]G IR IR REVAS FEM POP ART UNILAT W ATTENDING PSYCHIATRIST 03/13/2022 IR REVAS FEM POP ART UNILAT W ATTENDING PSYCHIATRIST 03/13/2022 Kashif Wong MD EDG IR IR REVAS FEM POP ART UNILAT W ATTENDING PSYCHIATRIST 06/02/2023 IR REVAS FEM POP ART UNILAT W ATTENDING PSYCHIATRIST 06/02/2023 Vishnu Penn MD EDG IR IR REVAS FEM POP ART UNILAT W ATTENDING PSYCHIATRIST 12/28/2024 IR REVAS FEM POP ART UNILAT W ATTENDING PSYCHIATRIST 12/28/2024 Vishnu Penn MD EDG IR IR [...] 05/19/2023 .; Surgeon: Jabari Hill DPM; Location: [facility]; Service: Orthopedics SKIN GRAFT Left 06/15/2022 Surgeon: Jabari Hill DPM; Location: [facility]; Service: Podiatry SKIN GRAFT Left 12/23/2022 . ; Surgeon: Jabari Hill DPM; Location: [facility]; Service: Orthopedics SKIN GRAFT 02/10/2023 Surgeon: Jabari Hill DPM; Location: [facility]; Service: Orthopedics TOE AMPUTATION Left 02/10/2023 Left foot second toe amputation, Left foot excisional debridement with application of skin graft substitute; Surgeon: Jabari Hill DPM; Location: [facility]; Service: Orthopedics TOE AMPUTATION Left 05/19/2023 Left foot, amputation of third toe. Left foot, wound debridment application. Left foot, skin graft substitute. Left foot wound debridment closure.; Surgeon: Jabari Hill DPM; Location: [facility]; Service: Orthopedics Current Outpatient [...] days. fluticasone propionate (FLONASE) 50 mcg/actuation Nasl [place], Suspension 1 spay each nostril twice daily [...] Chest pain. oxymetazoline (AFRIN) 0.05 % Nasl [place], Non-Aerosol 1 [place] by Nasal route as needed for Congestion [...] MEDICINE -- (Patient not taking: Reported on 05/14/2025) oxyCODONE-acetaminophen (PERCOCET) 5-325 mg Oral Tablet Take 1-2 Tablets by mouth every 4 hours as needed for Acute Pain (R52). (Patient not taking: Reported on 05/14/2025) 30 Tablet 0 No current facility-administered medications for this encounter. Allergies Allergen Reactions Atorvastatin Myalgia Ezetimibe Myalgia Rosuvastatin Myalgia Simvastatin Myalgia Cbolyzx-Uqi-Scy Reductase Inhibitors Other (See Comments) Joint pain Codeine Itching nausea Hydrocodone Itching nausea Phenergan [Promethazine] Other (See Comments) Made legs restless And also very sleepy ROS See HPI for further details. Relevant review of systems otherwise negative. Physical Exam Vitals: 05/14/25 1451 BP: 128/82 Pulse: 79 Resp: 16 Temp: 98 ??F (36.7 ??C) TempSrc: Oral Ulcer Progress and Procedure Please refer to the LDA for details of ulcer progress and procedure. 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 No adverse events. Daily dressing change Activity to tolerance documented in this encounter Miscellaneous Notes * [...] 4x4, roll gauze, every other day. 03/26 [email or web address] has been contacted to obtain your wound [...] to reach out to our community service organization director, Hanna Riggs at [phone] for any discussion. WHO TO CALL FOR PROBLEMS: Please call the OP wound care center with any problems or issues you may have after your visit or though the week. Each patient is assigned a manager of case management who can assist with issues you may be having. Individual office numbers are listed below. Press 1 for immediate or schedule needs, press 2 for the nursing line. The nurse line is for non-emergent needs and will be answered within 24 hours duringbusiness days. If you have a more immediate concern, press option #1. Office numbers: [phone] Ft. ClaudioVypxpe-[phone] [place]- [phone] Our offices do not have an on-call provider. If you have emergent needs after hours please contact your primary care provider. You may also utilize the [place] Nurse NOW Helpline: 9-482-6LEV-NOW for after-hours needs to get in contact with a nurse for assistance. 03/26 [employer] has been contacted to obtain your wound [...] to reach out to our community service organization director, Hanna Riggs at [phone] for any discussion. documented in this encounter Plan of Treatment Upcoming Encounters Date Type Department Care Team (Late st Contact Info) Description 07/16/2025 2:30 PM EDT Appointment [facility] Wound Care Center [address] [place] [address] Cristi Pelletier, DPM [address] [address] 11/12/2025 1:30 PM EST Appointment [facility] [address] [place] [address] [address] [place] [address] Nette Jalloh APRN [address] [place] [address] [address] 11/12/2025 2:40 PM EST Office Visit [facility] [address] [place] [address] [address] [place] [address] Nette Jalloh APRN [address] [place] [address] [facility] [address] [place] [address] Scheduled Orders Name Type Priority Associated Diagnoses Orde r Schedule NE DEBRIDEMENT SUBCUTANEOUS TISSUE 1ST 20 SQ CM/< NE Charge Routine 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 Author Wound Healing General On track(2024 3:31 PM EDT) Tsering Doran RN Note: Wound [...] % ointment Topical, ONCE, 1 dose, On Wed05/14/25 at 1500, Application site: foot Given 05/14/2025 2:57 PM EDT documented in this encounter Orders Medications Ordered That Daniel ht Not Have Been Administered Count Last Ordered Date First Ordered Date lidocaine (XYLOCAINE) 5 % ointment 1 2024 Nursing Count Last Ordered Date First Orde red Date AMB [facility] PRIMARY DRESSING 1 05/15/2025 documented in this encounter Care Teams Payroll And Benefits Assistant Relationship Specialty Start Date End Date William Hunter MD [facility] [address] [place] [address] PCP - General Internal Medicine-Adolescent Medicine 05/28/23 González Gotti MD [address] [place] [address] [address] [place], [place] [id number] Consulting Physician Internal Medicine - Clinical Cardiac Electrophysiology 04/05/17 Cristi Cleaning MD [address] [place] [address] [address] [place], [place] [id number] Physician Internal Medicine-Cardiovascular Disease 04/05/17 documented as of this encounter
--- OUTSIDE RECORDS SUMMARY | 2025-06-04 14:01 | XMS_ITS | Encounter Summary ---
Author Organization [place] [address] Care Team Providers Care Digital Learning Platforms Manager Name Role Phone González Gotti MD Unavailable [phone] Cristi Cleaning MD Unavailable [phone] William Hunter MD Primary Care Provider [phone] Reason for Referral * In Office Procedure (Routine) - Pending Review Specialty Diagnoses / Procedures Referred By Contac t Referred To Contact Diagnoses Pressure ulcer of left heel, stage 4 (HCC) Procedures [place] DEBRIDEMENT SUBCUTANEOUS TISSUE 1ST 20 SQ CM/< Cristi Pelletier DPM [address] [address] Phone: tel: fax: Referral ID Status Reason Start Date Expiration Date V isits Requested Visits Authorized [id number] Pending Review 06/10/2025 06/10/2026 1 1 * (Routine) - Pending Review Specialty Diagnoses / Procedures Referred By Contac t Referred To Contact Diagnoses Pressure ulcer of left heel, stage 4 (HCC) Procedures [facility] PRIMARY DRESSING Cristi Pelletier DPM [address] [address] Phone: tel: fax: Referral ID Status Reason Start Date Expiration Date V isits Requested Visits Authorized [id number] Pending Review 06/04/2025 06/04/2026 1 1 Reason [...] [facility] [place] [address] [place] [address] Phone: tel: fax: Referral ID Status Reason Start Date Expiration Date Visits Requested Visits Authorized [id number] Authorization Not Needed Specialty Services Required 5 01/08/2026 99 99 Encounter Details Date Type Department Care Team (Latest Contact Info) Description 06/04/2025 2:01 PM EDT - 06/04/2025 11:59 PM EDT Hospital Encounter [facility] [address] [place] [address] Cristi Pelletier DPM [address] [address] Pressure ulcer of left heel, stage 4 (HCC) (Primary Dx) Discharge Disposition: Home or Self Care Social History Tobacco Use Types Packs/Day Years Used Date Smoking Tobacco: Former Cigarettes 0.3 40 0 12/26/1981 - 12/26/2021 Passive Smoke Exposure: Past Smokeless Tobacco: Never Alcohol Use Standard Drinks/Week Comments Not Currently 0 (1 standard drink = 0.6 oz pur e alcohol) [facility] Utilities Answer Date Recorded In the [...] Recorded PHQ-2 Total Score 0 12/28/2024 [facility] - Occupational Stress Questionnaire Answer Date [...] things needed for daily living? No 05/29/2023 [facility] IP Transportation Answer D ate Recorded In [...] days. fluticasone propionate (FLONASE) 50 mcg/actuation Nasl [place], Suspension 1 spay each nostril twice daily [...] Chest pain. oxymetazoline (AFRIN) 0.05 % Nasl [place], Non-Aerosol 1 [place] by Nasal route as needed for Congestion [...] Cleaning Chronic systolic heart failure ([facility]) COPD (chronic obstructive pulmonary disease) ([facility]) Depression with anxiety Emphysema, unspecified ([facility]) Essential hypertension Headache Heartburn History of cardiac cath 03/23/2017 Stent placed in Right leg 03/23/2017 HLD (hyperlipidemia) Hypertension [place] (myocardial infarction) ([facility]) 06/2016 Pacemaker Post-operative nausea and vomiting Sinus node dysfunction ([facility]) [facility] Dual PPM 11/05/2016 - Dr. Cleaning STEMI (ST elevation myocardial infarction) ([facility]) STEMI with 3 NROI to RCA Systolic heart failure ([facility]) 02/2017 ECHO, EF 25% Past Surgical History: Procedure Laterality Date CARDIAC CATHETERIZATION Right 03/23/2017 stent placed in right leg CARDIAC PACEMAKER PLACEMENT 11/05/2016 [facility] Dual PPM COLONOSCOPY CORONARY ANGIOPLASTY WITH STENT PLACEMENT 06/2016 x3 DEBRIDEMENT Left 05/19/2023 .; Surgeon: Jabari Hill DPM; Location: [facility] MAIN OR; Service: Orthopedics FEMUR FRACTURE SURGERY Right right femur fx repair FOOT SURGERY FOOT SURGERY Left 12/23/2022 Left foot heel and second and third toe debridement with application of skin graft substitute. ; Surgeon: Jabari Hill DPM; Location: [facility] OR; Service: Orthopedics FOOT SURGERY Left 02/10/2023 Surgeon: Jabari Hill DPM; Location: [facility] OR; Service: Orthopedics FOOT SURGERY Left 06/06/2023 left FOOT TRANSMETATARSAL amputation; Surgeon: Jabari Hill DPM; Location: [facility] MAIN OR; Service: Podiatry HAMMER TOE SURGERY Left 06/15/2022 Left foot Correction of hammer toe deformity with arthroplasty second and third toe. Left foot Application of skin graft substitute.; Surgeon: Jabari Hill DPM; Location: [facility] OR; Service: Podiatry HIP SURGERY [...] IR REVAS FEM POP ART UNILAT W PHLEBOTOMY COORDINATOR 03/13/2022 IR REVAS FEM POP ART UNILAT W PHLEBOTOMY COORDINATOR 03/13/2022 Kashif Wong MD EDG IR IR REVAS FEM POP ART UNILAT W PHLEBOTOMY COORDINATOR 06/02/2023 IR REVAS FEM POP ART UNILAT W PHLEBOTOMY COORDINATOR 06/02/2023 Vishnu Penn MD EDG IR IR REVAS FEM POP ART UNILAT W PHLEBOTOMY COORDINATOR 12/28/2024 IR REVAS FEM POP ART UNILAT W PHLEBOTOMY COORDINATOR 12/28/2024 Vishnu Penn MD EDG IR IR [...] 05/19/2023 .; Surgeon: Jabari Hill DPM; Location: [facility]; Service: Orthopedics SKIN GRAFT Left 06/15/2022 Surgeon: Jabari Hill DPM; Location: [facility] OR; Service: Podiatry SKIN GRAFT Left 12/23/2022 . ; Surgeon: Jabari Hill DPM; Location: [facility] OR; Service: Orthopedics SKIN GRAFT 02/10/2023 Surgeon: Jabari Hill DPM; Location: [facility] OR; Service: Orthopedics TOE AMPUTATION Left 02/10/2023 Left foot second toe amputation, Left foot excisional debridement with application of skin graft substitute; Surgeon: Jabari Hill DPM; Location: [facility] OR; Service: Orthopedics TOE AMPUTATION Left 05/19/2023 Left foot, amputation of third toe. Left foot, wound debridment application. Left foot, skin graft substitute. Left foot wound debridment closure.; Surgeon: Jabari Hill DPM; Location: [facility]; Service: Orthopedics Current Outpatient [...] days. fluticasone propionate (FLONASE) 50 mcg/actuation Nasl [place], Suspension 1 spay each nostril twice daily [...] Chest pain. oxymetazoline (AFRIN) 0.05 % Nasl [place], Non-Aerosol 1 [place] by Nasal route as needed for Congestion [...] Myalgia Ezetimibe Myalgia Rosuvastatin Myalgia Simvastatin Myalgia Irkcxwp-Ugz-Svi Reductase Inhibitors Other (See Comments) Joint pain [...] left heel, stage 4 (HCC) - AMB [facility] PRIMARY DRESSING - [place] DEBRIDEMENT SUBCUTANEOUS TISSUE [...] 4x4, roll gauze, every other day. 03/26 [facility] Wound [facility] has been contacted to obtain [...] feel free to reach out to our superintendent ammunition storage, Hanna Riggs at [phone] for any discussion. WHO TO CALL FOR PROBLEMS: Please call the OP wound care center with any problems or issues you may have after your visit or though the week. Each patient is assigned a case therapist who can assist with issues you may be having. Individual office numbers are listed below. Press 1 for immediate or schedule needs, press 2 for the nursing line. The nurse line is for non-emergent needs and will be answered within 24 hours duringbusiness days. If you have a more immediate concern, press option #1. Office numbers: [phone] Ft. [phone] Mina- [phone] Our offices do not have an on-call provider. If you have emergent needs after hours please contact your primary care provider. You may also utilize the [facility] NOW Helpline: [phone] for after-hours needs to get in contact with a nurse for assistance. 03/26 [facility] has been contacted to obtain your wound [...] feel free to reach out to our superintendent ammunition storage, Hanna Riggs at [phone] for any discussion. documented in this encounter Plan of Treatment Upcoming Encounters Date Type Department Care Team (Late st Contact Info) Description 07/16/2025 2:30 PM EDT Appointment [facility] W[facility] Care Center [address] [place] [address] Cristi Pelletier, DPM [address] [address] 11/12/2025 1:30 PM EST Appointment [facility] [address] [place] [address] [address] [place] [address] Nette Jalloh APRN [address] [place] [address] [address] [place] [address] 11/12/2025 2:40 PM EST Office Visit [facility] [address] [place] [address] [address] [place] [address] Nette Jalloh APRN [address] [place] [address] DR [address] [place] [address] Scheduled Orders Name Type Priority Associated [...] 06/04/2025 documented in this encounter Care Teams Digital Learning Platforms Manager Relationship Specialty Start Date End Date William Hunter MD [address] [place] [phone] PCP - General Internal Medicine-Adolescent Medicine 05/28/23 González Gotti MD [address] [place] [address] [place] [address] Consulting Physician Internal Medicine - Clinical Cardiac Electrophysiology 04/05/17 Cristi Cleaning MD [address] [place] [address] [place] [address] Physician Internal Medicine-Cardiovascular Disease 04/05/17 documented as of this encounter
--- OUTSIDE RECORDS SUMMARY | 2025-06-11 14:45 | XMS_ITS | Encounter Summary ---
Author Organization 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) Procedures MI DEBRIDEMENT SUBCUTANEOUS TISSUE 1ST 20 SQ CM/< Cristi Pelletier DPM [address] [address] Phone: tel: fax: Referral ID Status Reason Start Date Expiration Date V isits Requested Visits Authorized [id number] Pending Review 06/12/2025 06/12/2026 1 1 * (Routine) - Pending Review Specialty Diagnoses / Procedures Referred By Contac t Referred To Contact Diagnoses Pressure ulcer of left heel, stage 4 (HCC) Procedures [facility] PR[facility] Cristi Pelleiter DPM [address] [address] Phone: tel: fax: Referral ID Status Reason Start Date Expiration Date V isits Requested Visits Authorized [id number] Pending Review 06/11/2025 06/11/2026 1 1 Reason for Visit * Consultation (Routine) - Authorization Not Needed Specialty Diagnoses / Procedures Referred By Brian t Referred To Contact Wound Care Diagnoses Wound Care Procedures MI DEBRIDEMENT SUBCUTANEOUS TISSUE 1ST 20 SQ CM/< MI DEBRIDEMENT MUSCLE &/FASCIA 1ST 20 SQ CM/< MI DEBRIDEMENT BONE 1ST 20 SQ CM/< MI DEBRIDEMENT SUBCUTANEOUS TISSUE EA ADDL 20 SQ CM MI DEBRIDEMENT MUSCLE &/FASCIA EA ADDL 20 SQ CM MI DEBRIDEMENT BONE EACH ADDITIONAL 20 SQ CM MI DEBRIDEMENT OPEN WOUND FIRST 20 SQ CM/< MI DEBRIDEMENT OPN WND EA ADDL 20 SQ CM/PRT THEREOF [facility] [address] [place] [address] Phone: tel: fax: Referral ID Status Reason Start Date Expiration Date Visits Requested Visits Authorized [id number] Authorization Not Needed Specialty Services Required 5 01/08/2026 99 99 Encounter Details Date Type Department Care Team (Latest Contact Info) Description 06/11/2025 2:45 PM EDT - 06/11/2025 11:59 PM EDT Hospital Encounter [facility] [address] [place] [address] Cristi Pelletier DPM [address] [address] Pressure ulcer of left heel, [...] drink = 0.6 oz pur e alcohol) [facility] Utilities Answer Date Recorded In the past 12 months has [facility] [employer], oil, or water [employer] threatened to shut off services in your home? No 12/28/2024 Overall Financial Resource Strain (CARDIA) Answe r Date Recorded How hard is it for you to pa y for the very basics like food, housing, medical care, and heating? Not hard at all 12/28/2024 PHQ-2 Answer Date Recorded PHQ-2 Total Score 0 12/28/2024 [facility] - Occupational Stress Questionnaire Answer Date Recorded [...] things needed for daily living? No 05/29/2023 [facility] IP Transportation Answer D ate Recorded [...] Sign Reading Time Taken Comments Blood Pressure 145/82 06/11/2025 2:56 PM EDT Pulse 73 06/11/2025 2:56 PM EDT Temperature 36.4 C (97.6 F) 06/11/2025 2:56 PM EDT Respiratory Rate 16 06/11/2025 2:56 PM EDT Oxygen Saturation - - Inhaled [...] days. fluticasone propionate (FLONASE) 50 mcg/actuation Nasl [place], Suspension 1 spay each nostril twice daily [...] Chest pain. oxymetazoline (AFRIN) 0.05 % Nasl [place], Non-Aerosol 1 [place] by Nasal route as needed for Congestion [...] Progress Notes * Cristi Pelletier DPM - 06/11/2025 2:45 PM EDT Images from the original note were not included. Date of Visit:06/11/2025 Progress Note HPI Ashley Ding is a 59 y.o. year old female patient who presents today for wound evaluation and follow-up. Daily dressing change Patient denies any fever, chills, nausea or vomiting Past Medical History: Diagnosis Date Anesthesia complication only with phenergan, alarming how long it takes her to wake up Asthma Bradycardia CAD (coronary artery disease) Cardiac pacemaker [facility] Dual PPM 11/05/2016 - Dr. Cleaning Chronic systolic heart failure ([facility]) COPD (chronic obstructive pulmonary disease) ([facility]) Depression with anxiety Emphysema, unspecified ([facility]) Essential hypertension Headache Heartburn History of cardiac cath 03/23/2017 Stent placed in Right leg 03/23/2017 HLD (hyperlipidemia) Hypertension AR (myocardial infarction) ([facility]) 06/2016 Pacemaker Post-operative nausea and vomiting Sinus node dysfunction ([facility]) [facility] Dual PPM 11/05/2016 - Dr. Cleaning STEMI (ST elevation myocardial infarction) ([facility]) STEMI with 3 NORI to RCA Systolic heart failure ([facility]) 02/2017 ECHO, EF 25% Past Surgical History: Procedure Laterality Date CARDIAC CATHETERIZATION Right 03/23/2017 stent placed in right leg CARDIAC PACEMAKER PLACEMENT 11/05/2016 [facility] Dual PPM COLONOSCOPY CORONARY ANGIOPLASTY WITH STENT PLACEMENT 06/2016 x3 DEBRIDEMENT Left 05/19/2023 .; Surgeon: Jabari Hill DPM; Location: [facility] MAIN OR; Service: Orthopedics FEMUR FRACTURE SURGERY Right right femur fx repair FOOT SURGERY FOOT SURGERY Left 12/23/2022 Left foot heel and second and third toe debridement with application of skin graft substitute. ; Surgeon: Jabari Hill DPM; Location: [facility] OR; Service: Orthopedics FOOT SURGERY Left 02/10/2023 Surgeon: Jabari Hill DPM; Location: [facility] OR; Service: Orthopedics FOOT SURGERY Left 06/06/2023 left FOOT TRANSMETATARSAL amputation; Surgeon: Jabari Hill DPM; Location: [facility] MAIN OR; Service: Podiatry HAMMER TOE SURGERY Left 06/15/2022 Left foot Correction of hammer toe deformity with arthroplasty second and third toe. Left foot Application of skin graft substitute.; Surgeon: Jabari Hill DPM; Location: [facility] OR; Service: Podiatry HIP [...] 06/02/2023 IR ANGIOGRAM FEMORAL ARTERIO SHIFT 06/02/2023 Vishun Penn MD [facility] IR IR ANGIOGRAM FEMORAL ARTERIO SHIFT 12/27/2024 IR ANGIOGRAM FEMORAL ARTERIO SHIFT 12/27/2024 Fili, Vishnu H, MD [facility] IR IR REVAS FEM POP ART UNILAT W BURNER SHAFT 03/13/2022 IR REVAS FEM POP ART UNILAT W BURNER SHAFT 03/13/2022 Kashif Wong MD [facility] IR IR REVAS FEM POP ART UNILAT W BURNER SHAFT 06/02/2023 IR REVAS FEM POP ART UNILAT W BURNER SHAFT 06/02/2023 Vishnu Penn MD [facility] IR IR REVAS FEM POP ART UNILAT W BURNER SHAFT 12/28/2024 IR REVAS FEM POP ART UNILAT W BURNER SHAFT 12/28/2024 Vishnu Penn MD [facility] IR IR [...] .; Surgeon: Jabari Hill DPM; Location: [facility] OR; Service: Orthopedics SKIN GRAFT Left 06/15/2022 Surgeon: Jabari Hill DPM; Location: [facility] OR; Service: Podiatry SKIN GRAFT Left 12/23/2022 . ; Surgeon: Jabari Hill DPM; Location: [facility]; Service: Orthopedics SKIN GRAFT 02/10/2023 Surgeon: Jabari Hill DPM; Location: [facility]; Service: Orthopedics TOE AMPUTATION Left 02/10/2023 Left foot second toe amputation, Left foot excisional debridement with application of skin graft substitute; Surgeon: Jabari Hill DPM; Location: [facility]; Service: Orthopedics TOE AMPUTATION Left 05/19/2023 Left foot, amputation of third toe. Left foot, wound debridment application. Left foot, skin graft substitute. Left foot wound debridment closure.; Surgeon: Jabari Hill DPM; Location: [facility]; Service: Orthopedics Current [...] FINISH ALL MEDICINE -- apixaban (ELIQUIS) 5 mg Oral Tablet Take [...] days. fluticasone propionate (FLONASE) 50 mcg/actuation Nasl [place], Suspension 1 spay each nostril twice daily [...] Chest pain. oxymetazoline (AFRIN) 0.05 % Nasl [place], Non-Aerosol 1 [place] by Nasal route as needed for Congestion [...] ORAL Take 1 Tablet by mouth daily. oxyCODONE-acetaminophen (PERCOCET) 5-325 mg Oral Tablet Take 1-2 Tablets by mouth every 4 hours as needed for Acute Pain (R52). (Patient not taking: Reported on 06/11/2025) 30 Tablet 0 No current facility-administered medications for this encounter. Allergies Allergen Reactions Atorvastatin Myalgia Ezetimibe Myalgia Rosuvastatin Myalgia Simvastatin Myalgia Eurfaaj-Lws-Ftj Reductase Inhibitors Other (See Comments) Joint pain Codeine Itching nausea Hydrocodone Itching nausea Phenergan [Promethazine] Other (See Comments) Made legs restless And also very sleepy ROS See HPI for further details. Relevant review of systems otherwise negative. Physical Exam Vitals: 06/11/25 1456 BP: 145/82 Pulse: 73 Resp: 16 Temp: 97.6 ??F (36.4 ??C) TempSrc: Oral Ulcer Progress and Procedure Please refer to the LDA for details of ulcer progress and procedure. 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 03/26 [facility] [place] to obtain your wound [...] free to reach out to our community education specialist, Hanna Riggs at [phone] for any discussion. WHO TO CALL FOR PROBLEMS: Please call the OP wound care center with any problems or issues you may have after your visit or though the week. Each patient is assigned a caser up who can assist with issues you may be having. Individual office numbers are listed below. Press 1 for immediate or schedule needs, press 2 for the nursing line. The nurse line is for non-emergent needs and will be answered within 24 hours duringbusiness days. If you have a more immediate concern, press option #1. Office numbers: [phone] [place] [phone] [facility] [phone] Our offices do not have an on-call provider. If you have emergent needs after hours please contact your primary care provider. You may also utilize the [place] Nurse NOW Helpline: 0-426-6TBT-NOW for after-hours needs to get in contact with a nurse for assistance. 03/26 [employer] has been contacted to obtain your wound [...] free to reach out to our community education specialist, Hanna Riggs at [phone] for any discussion. documented in this encounter Plan of Treatment Upcoming Encounters Date Type Department Care Team (Late st Contact Info) Description 07/16/2025 2:[address] [facility] [place] [address] [place] [address] Cristi Pelletier, DPM [address] [address] 11/12/2025 1:30 PM EST Appointment [facility] [address] [place] [address] [address] [place] [address] Nette Jalloh APRN [address] [place] [address] [phone] 11/12/2025 2:40 PM EST Office Visit [facility] [address] [place] [address] [address] [place] [address] Nette Jalloh APRN [address] [place] [address] [phone] Scheduled Orders Name Type Priority Associated Diagnoses Orde r Schedule MI DEBRIDEMENT SUBCUTANEOUS TISSUE 1ST 20 SQ CM/< MI Charge Routine Pressure ulcer of left heel, stage 4 (HCC) 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) Ordered: 06/12/2025 documented as of this encounter Goals Goal [...] % ointment Topical, ONCE, 1 dose, On Wed06/11/25 at 1515, Application site: left foot Given 06/11/2025 3:13 PM EDT documented in this encounter Orders Medications Ordered That Daniel ht Not Have Been Administered Count Last Ordered Date First Ordered Date lidocaine (XYLOCAINE) 5 % ointment 1 2024 Nursing Count Last Ordered Date First Orde red Date [facility] PRIMARY [facility] 1 06/11/2025 documented in this encounter Care Teams Electric Organ Checker Relationship Specialty Start Date End Date William Hunter MD [facility] [place] [phone] PCP - General Internal Medicine-Adolescent Medicine 05/28/23 González Gotti MD [address] [facility] [place] [address] Consulting Physician Internal Medicine - Clinical Cardiac Electrophysiology 04/05/17 Cristi Cleaning MD [address] [facility] [place] [address] Physician Internal Medicine-Cardiovascular Disease 04/05/17 documented as of this encounter
--- OUTSIDE RECORDS SUMMARY | 2025-06-19 05:45 | XMS_ITS ---
Author Organization [facility] D [facility] Address [address] [place] [address] Care Team Providers Care Dish Network Installer Name Role Phone William Hunter Primary Care Provider Sarah Wing [phone] Allergies Allergen (clinical drug ingredient) Drug/Non Drug Allergy documented on EMR Reaction Allergy Type Onset Date Status Substance with 3-ptwfydr-2-methylg lutaryl-coenzyme A reductase inhibitor mechanism of action [...] HDL 35 40-60 mg/dl CHLHDL 6.3 1-3.5 Reason For Referral Reason CT scan lung cancer screening Diagnosis 1 History of tobacco u se (Z87.891) Referral Organization [facility] DRE [facility]ARTMAN Referring Provider First Name Sarah Referring Provider Last Name Mecca Referring Provider Speciality Family Fadi thorpe Referred Organization [facility] Referred Address [address] [facility] [address] [facility] [place], [place],[address] Referred Provider Specialty Diagnostic R adiology General Notes Vijaya Gomez 2024 02:24:41 PM >sent to [facility] to schedule Referral Priority Routine REASON [...] 06/19/2025 Encounters Encounter Location Date Provider Diagnosis [facility] [address] [place] [address] 06/19/2025 Sarah Wing Routine medical exam Z00.00 ; Coronary artery disease involving [place] coronary artery of [place] heart without angina pectoris I25.10 ; Gastroesophageal [...] Z00.00) Order provided for fasting labs Needs ogmounika, has at home Pt was advised to reach out if she has not been scheduled for her imaging follow-up based on her mammogram and breast ultrasound findings by August 27. flu shot given 06/19/2025 Coronary artery disease involving [place] coronary artery of [place] heart without angina pectoris (ICD-10 - I25.10) [...] exam Order provided for fasting labs Needs antonio, has at home Pt was advised to reach out if she has not been scheduled for her imaging follow-up based on her mammogram and breast ultrasound findings by August 27. flu shot given Coronary artery disease invo lving [place] coronary artery of [place] heart without angina pectoris No acute angina. [...] Name Order Date Mammogram : Bilateral 06/19/2025 CT Scan : Chest, Lung Cancer Screening 0 06/19/2025 Referrals Referral Date Details 06/19/2025 06/19/2025, CT scan lung cancer screening, [address] [facility] [place], [place], [address], Next Appt Details Follow Up: 6 Months,prn, [place] son: Progress Notes * Rodo GLEZB:1965 (59 yo F)Acc No.[id number]:06/19/2025 Progress Notes Patient: Ashley NICOLE Provider: Jeremi Wing APRN :1965 A ge:59 Y S ex:Female Date:06/19/2025 Address:[address] [place] [address] [id number] Pcp:William Hunter Subjective: * Chief [...] problems. Pt is still seeing [facility] at [place] for monitoring. Pt explains she has one [...] Procedure: M I 06/2016, chest pain 2006, [facility]- defibrillator shock, foot infection 12/2021, [place] 05/2023, [facility]- blood cot 12/2024. * Family History: F ather: alive, melanoma, prostate, diagnosed with Cancer, Diabetes, Hypertension. M other: alive, diagnosed with Hypertension, Heart Disease, Cancer. P aternal Grand Father: . Paternal Grand Mother: . M aternal Grand Father: . M aternal Grand Mother: . S ibdaniel: alive, 1 sister ; mva. Redd whitfield: alive. 1 brother(s) , 1 sister(s) [...] and reconciled with the patient * Allergies: Redd sierra HYDROcodone: itchy and nausea, Statins: couldnt walk. [...] Assessment: 1. C oronary artery disease involving [place] coronary artery of [place] heart without angina pectoris - I25.10 (Primary) [...] PM EDT > a1c normal Krissy Sigala 06/20/2025 04:54:40 PM EDT > pt informedThis [...] CT Scan : Chest, Lung Cancer Screening* Notes: Pt reports smoking cessation status at [...] Deltoid * Procedure Codes: 9 0661 FLUCELVAX, [address]804 ADMINISTRATION IMMUNIZATION ONE VACCINE * Follow Up: 6 Months,prn * * Sign off status: Completed true * Provider: Jeremi Wing APRN Date: 0 06/19/2025 Generated for Zuleima crockett/Joe/Barbaraitting on: 1 02:23 PM EDT History and Physical Notes * [...] problems. Pt is still seeing [facility] at [place] for monitoring. Pt explains she has one [...]
--- OUTSIDE RECORDS SUMMARY | 2025-06-20 07:25 | XMS_ITS ---
Author Organization [facility] Address [address] [place] [address] Care Team Providers Care Nutrition Club Ambassador Name Role Phone William Hunter Primary Care Provider [phone] Sarah Wing Unavailable [phone] Encounters Encounter Location Date Provider Diagnosis [facility] [address] [place], [place] [address] 06/20/2025 Sarahjohnana Wing Hyperglycemia R73.9 Assessments Encounter Date Diagnosis (ICD Code) Assessment Notes Treatment Notes Treatment Clinical Notes Section Notes 06/20/2025 Hyperglycemia (ICD-10 - R73.9) Plan Of Treatment Pending Test Test Name Order Date M-Hemoglobin A1C 06/20/2025 Progress Notes * Oz GLEZIdaliaB:1965 (59 yo F)Acc No.[id number]:06/20/2025 Patient: Ashley NICOLE :1965 A ge:59 Y S ex:Female Address:[place], [address] Subjective: * Chief Complaints: * * Medical History: * Surgical History: * Hospitalization/Major Diagno stic Procedure: * Medications: Objective: * Vitals: * Physical Examination: Assessment: * Assessment: 1. H yperglycemia - R73.9 Plan: * Treatment: * Procedure Codes: * true * Date: Generated for Zuleima crockett/oJe/Farrukh on: 1 02:23 PM EDT
--- OUTSIDE RECORDS SUMMARY | 2025-06-25 14:34 | XMS_ITS | Encounter Summary ---
Author Organization [place] [address] Care Team Providers Care Wedding Transportation Driver Name Role Phone González Gotti MD Unavailable [phone] Cristi Cleaning MD Unavailable [phone] William Hunter MD Primary Care Provider [phone] Reason for Referral * In Office Procedure (Routine) - Pending Review Specialty Diagnoses / Procedures Referred By Contac t Referred To Contact Diagnoses Pressure ulcer of left heel, stage 4 (HCC) Procedures RI DEBRIDEMENT SUBCUTANEOUS TISSUE 1ST 20 SQ CM/< Cristi Pelletier DPM [address] [place] [id number] Phone: tel: fax: Referral ID Status Reason Start Date Expiration Date V isits Requested Visits Authorized [id number] Pending Review 06/25/2025 06/25/2026 1 1 * (Routine) - Pending Review Specialty Diagnoses / Procedures Referred By Contac t Referred To Contact Diagnoses Pressure ulcer of left heel, stage 4 (HCC) Procedures [facility] Cristi Pelletier DPM [address] [address] Phone: tel: fax: Referral ID Status Reason Start Date Expiration Date V isits Requested Visits Authorized [id number] Pending Review 06/25/2025 06/25/2026 1 1 Reason for Visit * Reason Comments Wound Check * Consultation (Routine) - Authorization Not Needed Specialty Diagnoses / Procedures Referred By Brian t Referred To Contact Wound Care Diagnoses Wound Care Procedures RI DEBRIDEMENT SUBCUTANEOUS TISSUE 1ST 20 SQ CM/< RI DEBRIDEMENT MUSCLE &/FASCIA 1ST 20 SQ CM/< RI DEBRIDEMENT BONE 1ST 20 SQ CM/< RI DEBRIDEMENT SUBCUTANEOUS TISSUE EA ADDL 20 SQ CM RI DEBRIDEMENT MUSCLE &/FASCIA EA ADDL 20 SQ CM RI DEBRIDEMENT BONE EACH ADDITIONAL 20 SQ CM RI DEBRIDEMENT OPEN WOUND FIRST 20 SQ CM/< RI DEBRIDEMENT OPN WND EA ADDL 20 SQ CM/PRT THEREOF [facility] [address] [facility] [place] [address] Phone: tel: fax: Referral ID Status Reason Start Date Expiration Date Visits Requested Visits Authorized [id number] Authorization Not Needed Specialty Services Required 5 01/08/2026 99 99 Encounter Details Date Type Department Care Team (Latest Contact Info) Description 06/25/2025 2:34 PM EDT - 06/25/2025 11:59 PM EDT Hospital Encounter [facility] [address] [place] [address] Cristi Pelletier DPM [address] [address] Pressure ulcer of left heel, stage 4 (HCC) (Primary Dx) Discharge Disposition: Home or Self Care Social History Tobacco Use Types Packs/Day Years Used Date Smoking Tobacco: Former Cigarettes 0.3 40 0 12/26/1981 - 12/26/2021 Passive Smoke Exposure: Past Smokeless Tobacco: Never Alcohol Use Standard Drinks/Week Comments Not Currently 0 (1 standard drink = 0.6 oz pur e alcohol) [facility] Utilities Answer Date Recorded In the past 12 months has Who Works Around You, gas, oil, or water company threatened to shut off services in your home? No 12/28/2024 Overall Financial Resource Strain (CARDIA) Answe r Date Recorded How hard is it for you to pa y for the very basics like food, housing, medical care, and heating? Not hard at all 12/28/2024 PHQ-2 Answer Date Recorded PHQ-2 Total Score 0 12/28/2024 [facility] [...] things needed for daily living? No 05/29/2023 [facility] IP Transportation Answer [...] days. fluticasone propionate (FLONASE) 50 mcg/actuation Nasl [place], Suspension 1 spay each nostril twice daily [...] Chest pain. oxymetazoline (AFRIN) 0.05 % Nasl [place], Non-Aerosol 1 [place] by Nasal route as needed for Congestion [...] 06/25/2025 2:45 PM EDT Date of Visit:06/25/2025 [id number] today Progress Note HPI Ashley Ding is a 59 y.o. year old female patient who presents today for wound evaluation and follow-up. Daily dressing change Patient denies any fever, chills, nausea or vomiting Improving Past Medical History: Diagnosis Date Anesthesia complication only with phenergan, alarming how long it takes her to wake up Asthma Bradycardia CAD (coronary artery disease) Cardiac pacemaker [facility] Dual PPM 11/05/2016 - Dr. Cleaning Chronic systolic heart failure ([facility]) COPD (chronic obstructive pulmonary disease) ([facility]) Depression with anxiety Emphysema, unspecified ([facility]) Essential hypertension Headache Heartburn History of cardiac cath 03/23/2017 Stent placed in Right leg 03/23/2017 HLD (hyperlipidemia) Hypertension CA (myocardial infarction) ([facility]) 06/2016 Pacemaker Post-operative nausea and vomiting Sinus node dysfunction ([facility]) [facility] Dual PPM 11/05/2016 - Dr. Cleaning STEMI (ST elevation myocardial infarction) ([facility]) STEMI with 3 NORI to RCA Systolic heart failure ([facility]) 02/2017 ECHO, EF 25% Past Surgical History: Procedure Laterality Date CARDIAC CATHETERIZATION Right 03/23/2017 stent placed in right leg CARDIAC PACEMAKER PLACEMENT 11/05/2016 [facility] Dual PPM COLONOSCOPY CORONARY ANGIOPLASTY WITH STENT PLACEMENT 06/2016 x3 DEBRIDEMENT Left 05/19/2023 .; Surgeon: Jabari Hill DPM; Location: [facility] MAIN OR; Service: Orthopedics FEMUR FRACTURE SURGERY Right right femur fx repair FOOT SURGERY FOOT SURGERY Left 12/23/2022 Left foot heel and second and third toe debridement with application of skin graft substitute. ; Surgeon: Jabari Hill DPM; Location: [facility] MAIN OR; Service: Orthopedics FOOT SURGERY Left 02/10/2023 Surgeon: Jabari Hill DPM; Location: [facility] MAIN OR; Service: Orthopedics FOOT SURGERY Left 06/06/2023 left FOOT TRANSMETATARSAL amputation; Surgeon: Jabari Hill DPM; Location: [facility] MAIN OR; Service: Podiatry HAMMER TOE SURGERY Left 06/15/2022 Left foot Correction of hammer toe deformity with arthroplasty second and third toe. Left foot Application of skin graft substitute.; Surgeon: Jabari Hill DPM; Location: [facility] MAIN OR; Service: Podiatry HIP [...] IR REVAS FEM POP ART UNILAT W CEILING CLEANER 03/13/2022 IR REVAS FEM POP ART UNILAT W CEILING CLEANER 03/13/2022 Kashif Wong MD [facility] IR IR REVAS FEM POP ART UNILAT W CEILING CLEANER 06/02/2023 IR REVAS FEM POP ART UNILAT W CEILING CLEANER 06/02/2023 Vishnu Penn MD [facility] IR IR REVAS FEM POP ART UNILAT W CEILING CLEANER 12/28/2024 IR REVAS FEM POP ART UNILAT W CEILING CLEANER 12/28/2024 Vishnu Penn MD [facility] IR [...] 05/19/2023 .; Surgeon: Jabari Hill DPM; Location: [facility] MA[facility] OR; Service: Orthopedics SKIN GRAFT Left 06/15/2022 Surgeon: Jabari Hill DPM; Location: [facility] MA[facility] OR; Service: Podiatry SKIN GRAFT Left 12/23/2022 . ; Surgeon: Jabari Hill DPM; Location: [facility] MA[facility] OR; Service: Orthopedics SKIN GRAFT 02/10/2023 Surgeon: Jabari Hill DPM; Location: [facility] OR; Service: Orthopedics TOE AMPUTATION Left 02/10/2023 Left foot second toe amputation, Left foot excisional debridement with application of skin graft substitute; Surgeon: Jabari Hill DPM; Location: [facility] OR; Service: Orthopedics TOE AMPUTATION Left 05/19/2023 Left foot, amputation of third toe. Left foot, wound debridment application. Left foot, skin graft substitute. Left foot wound debridment closure.; Surgeon: Jabari Hill DPM; Location: [facility] OR; Service: Orthopedics Current [...] days. fluticasone propionate (FLONASE) 50 mcg/actuation Nasl [place], Suspension 1 spay each nostril twice daily [...] Chest pain. oxymetazoline (AFRIN) 0.05 % Nasl [place], Non-Aerosol 1 [place] by Nasal route as needed for Congestion [...] Myalgia Ezetimibe Myalgia Rosuvastatin Myalgia Simvastatin Myalgia Oimsefz-Hbg-Moo Reductase Inhibitors Other (See Comments) Joint pain [...] left heel, stage 4 (HCC) - [facility] PRIMARY [facility] - RI DEBRIDEMENT SUBCUTANEOUS TISSUE 1ST 20 SQ CM/< [...] 4x4, roll gauze, every other day. 03/26 [facility] Wound [facility] has been contacted to obtain [...] to reach out to our community engagement coordinator, Hanna Riggs at [phone] for any discussion. WHO TO CALL FOR PROBLEMS: Please call the OP wound care center with any problems or issues you may have after your visit or though the week. Each patient is assigned a case finisher who can assist with issues you may be having. Individual office numbers are listed below. Press 1 for immediate or schedule needs, press 2 for the nursing line. The nurse line is for non-emergent needs and will be answered within 24 hours duringbusiness days. If you have a more immediate concern, press option #1. Office numbers: [phone] [place]t. ClaudioGltkog-[phone] Mina- [phone] Our offices do not have an on-call provider. If you have emergent needs after hours please contact your primary care provider. You may also utilize the [facility] Nurse NOW Helpline: [phone]-NOW for after-hours needs to get in contact [...] to reach out to our community engagement coordinator, Hanna Riggs at [phone] for any discussion. documented in this encounter Plan of Treatment Upcoming Encounters Date Type Department Care Team (Late st Contact Info) Description 07/16/2025 2:30 PM EDT Appointment [facility] [place] [address] [place] [address] Cristi Pelletier, DPM [address] [address] 11/12/2025 1:30 PM EST Appointment [facility] [address] [place] [address] [address] [place] [address] Nette Jalloh APRN [address] [place] [address] [address] 11/12/2025 2:40 PM EST Office Visit [facility] [address] [place] [address] [address] [place] [address] Nette Jalloh [address] [phone] Scheduled Orders Name Type Priority Associated Diagnoses Orde r Schedule RI DEBRIDEMENT SUBCUTANEOUS TISSUE 1ST 20 SQ CM/< RI Charge Routine Pressure ulcer of left heel, [...] % ointment Topical, ONCE, 1 dose, On Wed06/25/25 at 1500, Application site: FOOT Given 06/25/2025 2:57 PM EDT documented in this encounter Orders Medications Ordered That Daniel ht Not Have Been Administered Count Last Ordered Date First Ordered Date lidocaine (XYLOCAINE) 5 % ointment 1 2024 Nursing Count Last Ordered Date First Orde red Date [facility] PRIMARY DRESSING 06/25/2025 documented in this encounter Care Teams Wedding Transportation Driver Relationship Specialty Start Date End Date William Hunter MD [address] [place] [address] [place] [phone] PCP - General Internal Medicine-Adolescent Medicine 05/28/23 González Gotti MD [address] [place] [address] [place] [id number] Consulting Physician Internal Medicine - Clinical Cardiac Electrophysiology 04/05/17 Cristi Cleaning MD [address] [place] [address] [place] [id number] Physician Internal Medicine-Cardiovascular Disease 04/05/17 documented as of this encounter
--- NOTE | 2025-06-29 14:24 | CT_ITS ---
FINAL REPORT TECHNIQUE: Thin section axial images were obtained from the lung apices to the upper abdomen by computed tomography. Reformatted images were obtained and reviewed. This study was performed with techniques to keep radiation doses al low as reasonably achievable (ALARA). Individualized dose reduction techniques using automated exposure control or adjustment of mA and/or kV according to the patient's size were employed. CLINICAL HISTORY: SCREENING former smoker quit 1 year ago 1ppd x43 years COMPARISON: None FINDINGS: CHEST CT LOW DOSE 58-year-old female, quit smoking 1 year ago, 54-hrea-bdba history. CTDI vol (mGy): 2.90 DLP (mGy-cm): 96.38 A pacemaker is noted in the left anterior chest wall. There is no axillary adenopathy. There is no mediastinal or hilar mass or adenopathy. The heart is normal in size. There is no pericardial or pleural effusion. Lung window images demonstrate no suspicious infiltrate or nodule. Limited images of the upper abdomen demonstrate bilateral adrenal masses, the larger on the right measuring 2.4 x 1.7 cm in size. These likely represent adenomas. There are small left upper pole nonobstructing renal stones, measuring up to 5 mm in size. IMPRESSION: Lung-RADS category 1S, the S designation for the bilateral adrenal masses and the small left upper pole nonobstructing renal stone. Recommend 12 month follow up low dose chest CT. Reviewed, Interpreted and Dictated by Jaden Darby MD Transcribed by Wendy Oreilly Authenticated and [facility]
--- OUTSIDE RECORDS SUMMARY | 2025-06-29 14:24 | XMS_ITS | Patient Health Record ---
Author Organization [facility] Address [address] [place] [address] Care Team Providers Care Gear Shaper Name Role Phone William Hunter Primary Care Provider Sarah Wing Unavailable [phone] Migration, Provider Unavailable Unavailable Allergies Allergen (clinical drug ingredient) Drug/Non Drug Allergy documented on EMR Reaction Allergy Type Onset Date Status Substance with 5-zrqabok-3-methylg lutaryl-coenzyme A reductase inhibitor mechanism of action [...] HDL 35 40-60 mg/dl CHLHDL 6.3 1-3.5 M-Hemoglobin A1C Reviewed date:06/20/2025 04:54:54 PM Interpretation: Performing Lab: Notes/Report: HGBA1C 5.4 4.0-6.0 % < 6% Non-Diabetic Level < 7% Controlled Diabetic Level > 8% Poorly Controlled Diabetic Level Mammogram : Bilateral Reviewed date:03/21/2025 09:46:46 AM [...] Status W/U Status Risk Notes Problem Insomnia (609587060) Insomnia due to medical condition (G47.01) Active confirmed Problem Essential hypertension (52231399) Essential (primary) hypertension (I10) Active confirmed Problem Ventricular tachycardia (48256228) Ventricular tachycardia (I47.2) Active confirmed Problem Paroxysmal atrial fibrillation (916083413) Paroxysmal atrial fibrillation (I48.0) Active confirmed Problem Ventricular fibrillation (18644791) Ventricular fibrillation (I49.01) Active confirmed Problem Stricture of artery (89304931) Stricture of artery (I77.1) Active confirmed Problem Chronic ulcer of skin (92532041) Non-pressure chronic ulcer of skin of other sites with unspecified severity (L98.499) Active confirmed Problem Long-term current use of anticoagulant (857002864) marketing programs specialist (current) use of anticoagulants (Z79.01) Active confirmed Problem Mixed anxiety and depressive disorder (318820803) Depression with anxiety (F41.8) Active confirmed Problem Neuropathy (956349139) Neuropathy (G62.9) Active confirmed Problem Essential hypertension (25320176) Essential hypertension (I10) Active confirmed Problem Hyperlipidaemia (61616555) Hyperlipemia (E78.5) Active confirmed Problem Atrial fibrillation (36840934) Atrial fibrillation (I48.91) Active confirmed Problem Gastroesophageal reflux disease without esophagitis (977218529) Gastroesophageal reflux disease without esophagitis (K21.9) Active confirmed Problem Atherosclerotic heart disease of [place] coronary artery without angina pectoris (963420084720951) Coronary artery disease involving [place] coronary artery of [place] heart without angina pectoris (I25.10) Active confirmed Problem COPD - Chronic obstructive pulmonary disease (79612274) Chronic obstructive pulmonary disease, unspecified COPD type (J44.9) Active confirmed Problem Chronic systolic heart failure (646640859) Chronic systolic heart failure (I50.22) Active confirmed Problem Chronic bronchiolitis (511891597) Chronic bronchiolitis (J44.9) Active confirmed Problem Peripheral arterial disease (626209272) Peripheral arterial disease (I73.9) Active confirmed Problem Kidney stone (59457299) Kidney stone (N20.0) Active confirmed Problem Generalized anxiety disorder (34972936) TRISH (generalized anxiety disorder) (F41.1) Active confirmed Problem Insomnia (250475113) Insomnia, unspecified type (G47.00) Active confirmed Problem Ventricular tachyarrhythmia (5683784) Ventricular tachyarrhythmia (I47.2) Active confirmed Problem Cardiac pacemaker in situ (715962816) History of pacemaker (Z95.0) Active confirmed Problem Atherosclerosis of coronary artery (003929873) Atherosclerosis of [place] coronary artery of [place] heart with other form of angina pectoris (I25.118) Active confirmed Problem Automatic implantable cardiac defibrillator in situ (234068654) Presence of automatic implantable cardioverter-defib rillator (Z95.810) Active confirmed Problem Mass of right adrenal gland (finding) (86434286554396876) Adrenal mass, right (E27.9) Active confirmed Problem Seasonal allergic rhinitis (529057927) Seasonal allergic rhinitis, unspecified allergic rhinitis trigger (J30.2) Active confirmed Problem Old myocardial infarction (4255428) History of ST elevation myocardial infarction (STEMI) (I25.2) Active confirmed Problem Automatic implantable cardiac defibrillator in situ (773875143) Presence of combination internal cardiac defibrillator (ICD) and pacemaker (Z95.810) Active confirmed Problem Arterial leg ulc er (L97.909) Active confirmed Problem Chronic obstructive pulmonary disease (54791991) Advanced COPD (J44.9) Active confirmed Problem Betaxolol allergy (862481992) Betaxolol allergy (Z88.8) Active confirmed Problem Hypertensive heart failure (27166252) Unspecified hypertensive heart disease with heart failure (I11.0) Active confirmed Vital Signs Heart Rate 94 /min 06/19/2025 Temperature 95 degrees Fahrenheit 06/19/2025 Blood pressure diastolic 82 mm Hg 06/19/2025 Height 64 in 06/19/2025 Blood pressure systolic 130 mm Hg 06/19/2025 Weight 154 lbs 06/19/2025 BMI 26.43 kg/m2 06/19/2025 Encounters Encounter Location Date Provider Diagnosis [facility] [address] [place] [address] 12/30/2024 Provider Migration [facility] [address] [place] [address] 02/27/2025 Sarah Wing Routine medical exam Z00.00 ; Coronary artery disease involving [place] coronary artery of [place] heart without angina pectoris I25.10 ; Gastroesophageal reflux disease without esophagitis K21.9 ; Chronic systolic heart failure I50.22 ; Peripheral arterial disease I73.9 ; Paroxysmal atrial fibrillation I48.0 ; Hyperlipemia E78.5 ; marketing programs specialist (current) use of anticoagulants Z79.01 ; Essential hypertension I10 ; Encounter for screening for malignant neoplasm of colon Z12.11 ; Visit for screening mammogram Z12.31 and BMI 26.0-26.9,adult Z68.26 [facility] [address] [place], [place] [address] 06/19/2025 Sarah Wing Routine medical exam Z00.00 ; Coronary artery disease involving [place] coronary artery of [place] heart without angina pectoris I25.10 ; Gastroesophageal reflux disease without esophagitis K21.9 ; Chronic systolic heart failure I50.22 ; Peripheral arterial disease I73.9 ; Paroxysmal atrial fibrillation I48.0 ; Hyperlipemia E78.5 ; Essential hypertension I10 ; History of tobacco use Z87.891 ; Medically noncompliant Z91.199 ; Encounter for immunization Z23 and Visit for screening mammogram Z12.31 [facility] [place] [address] [address] 10/02/2024 William Besson [facility] [place] [address] [address] 01/29/2025 Sarah McGeries [facility] [address] [facility] [address] [place], [place] [address] 02/27/2025 Sarah McNees [facility] [place] [address] [address] 03/05/2025 William Besson [facility] [address] [place], [place] [address] 03/21/2025 Sarah Wing Abnormal mammogram R 92.8 [facility] [address] [place], [place] [address] 06/19/2025 Sarah FlacoNees [facility] [address] [place] [address] 06/20/2025 Sarah Mecca Hyperglycemia R73.9 Assessments Encounter Date Diagnosis (ICD Code) Assessment Notes Treatment Notes Treatment Clinical Notes Section Notes 02/27/2025 Routine medical exam (ICD-10 - Z00.00) Needs mammogram and cologuard, will arrange again 02/27/2025 Coronary artery disease involving [place] coronary artery of [place] heart without angina pectoris (ICD-10 - I25.10) [...] shot given 06/19/2025 Coronary artery disease involving [place] coronary artery of [place] heart without angina pectoris (ICD-10 - I25.10) No acute angina. Keep FU with cardiology 06/20/2025 Hyperglycemia (ICD-10 - R73.9) 06/19/2025 Gastroesophageal reflux disease without esophagitis (ICD-10 - K21.9) Well controlled on PPI, continue therapy. 02/27/2025 Gastroesophageal reflux disease without esophagitis (ICD-10 - K21.9) well controlled on PPI 02/27/2025 Chronic systolic heart failure (ICD-10 - I50.22) Euvolemic today on exam 06/19/2025 Chronic systolic heart failure (ICD-10 - I50.22) Euvolemic today on exam, no current concerns or changes made today. Told to continue f/u with Cardiology. 06/19/2025 Peripheral arterial disease (ICD-10 - I73.9) Risk factor modification, refrain from smoking maximize LDL, blood pressure control. Keep FU with vascular surgery and podiatry. 02/27/2025 Peripheral arterial disease (ICD-10 - I73.9) [...] tolerates well. WIll check fasting lipid panel 06/19/2025 Hyperlipemia (ICD-10 - E78.5) On repatha, tolerates well. Labs will be drawn today and reviewed personally to evaluate efficacy of current medication regimen. 06/19/2025 Essential hypertension (ICD-10 - I10) Blood pressure at goal, no changes made at this time. 02/27/2025 marketing programs specialist (current) use of anticoagulants (ICD-10 - Z79.01) 02/27/2025 Essential hypertension (ICD-10 - I10) Blood pressure at goal. 06/19/2025 History of tobacco use (ICD-10 - Z87.891) Pt reports smoking cessation status at this time. Pt was encouraged to continue. Need CT lung cancer screening, will arrange 06/19/2025 Medically noncompliant (ICD-10 - Z91.199) Pt explains she has been making an effort to be more compliant, pt was encouraged to continue her efforts and follow-up as needed. 02/27/2025 Encounter for screening for malignant neoplasm of colon (ICD-10 - Z12.11) 02/27/2025 Visit for screening mammogram (ICD-10 - Z12.31) 06/19/2025 Encounter for immunization (ICD-10 - Z23) Flu shot administered and tolerated well. 02/27/2025 BMI 26.0-26.9,adult (ICD-10 - Z68.26) BMI acceptable 06/19/2025 Visit for screening mammogram (ICD-10 - Z12.31) Plan Of Treatment Pending Test Test Name Order Date Ultrasound : Breast, Left 03/21/2025 X ray : Shoulder, Left 09/14/2006 X ray : Orbits, Bilateral 09/14/2006 X ray : Nasal Bone 09/14/2006 X ray : Humerus, Left 09/14/2006 Mammogram : Bilateral 07/19/2023 Mammogram : Bilateral 06/19/2025 H-CBC with AUTO DIFF 01/31/2018 H-BMP 01/31/2018 H-BUN 07/21/2016 H-CREATININE SERUM 07/21/2016 H-MAGNESIUM 01/31/2018 H-LIVER PANEL 07/27/2016 H-TSH 01/31/2018 CT Scan : Abdomen Adrenal Protocol 07/17 M-Hemoglobin A1C 06/20/2025 CT Scan : Chest, Lung Cancer Screening 0 06/19/2025 LIPID PANEL, STANDARD (7600) 02/27/2025 LIPID PANEL, STANDARD (7600) 10/19/2023 COMPREHENSIVE METABOLIC PANEL (41063) COMPREHENSIVE METABOLIC PANEL (26487) CBC (INCLUDES DIFF/PLT) (6399) 4 CBC (INCLUDES DIFF/PLT) (6399) 5 Insurance Providers Payer Name Payer Address Payer Phone Subscriber Number Group Number Insured Name Patient Relationship to Insured Coverage Start Date Coverage End Date [employer] [facility] [address] [address] [place] [address] [id number] Ashley Ding Self - patient is the [...] Hospitalization History Reason Date(Month/Year) chest pain 2006 [place] 06/[address] [facility]- blood cot 12/2024 [place] 05/2023 [facility]- defibrillator shock, foot infection 12/2021
--- OUTSIDE RECORDS SUMMARY | 2025-06-29 14:24 | XMS_ITS | Clinical Summary ---
Author Organization Healthcare Address [address] [place] [address] Care Team Providers Care Batch Plant Operator Name Role Phone Fariha Henderson APRN Primary Care Provider [phone] Social History Tobacco Use Types Packs/Day Years Used Date Smoking Tobacco: Never Assessed Comments Unknown Sex and Gender Information Value Date Recorded Sex Assigned at Not on file Legal Sex Female 7:27 PM EDT Gender Identity Not on file Sexual Orientation Not on file Plan of Treatment Not on file Care Teams Batch Plant Operator Relationship Specialty Start Date End Date Fariha Henderson APRN [address] [place] [address] PCP - General 02/07/21
--- OUTSIDE RECORDS SUMMARY | 2025-06-29 14:24 | XMS_ITS | Clinical Summary ---
Author Organization [facility] Ar[facility] Address [address] [facility] [address] [place] [address] Phone Care Team Providers Care Microfilm Operator Name Role Phone González Gotti MD Unavailable [phone] Cristi Cleaning MD Unavailable [phone] William Hunter MD Primary Care Provider [phone] Allergies Active Allergy Reactions Criticality Noted Date Comments Atorvastatin Myalgia High 07/01/2023 Codeine Itching Low nausea Ezetimibe Myalgia High 07/01/2023 Hydrocodone Itching Low nausea Promethazine Other (See Comments) Low 06/12/2022 Made legs restless And also very sleepy Rosuvastatin Myalgia High 07/01/2023 Simvastatin Myalgia High 07/01/2023 Cvdfjoo-Dkq-Pnb Reductase Inhibitors Other (See Comments) 01/02/2025 Joint [...] take the medication, Informant: Self/Patient, Reported on 06/25/2025 fluticasone propionate (FLONASE) 50 mcg/actuation Nasl Colon, Suspension 1 spay each nostril twice daily 1 Each 3 3 Active oxymetazoline (AFRIN) 0.05 % Nasl Colon, Non-Aerosol 1 Colon by Nasal route as needed for Congestion [...] t be different from the original. 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 0 12/07/2023 Neuropathy 12/07/2023 Non-pressure chronic ulcer o f skin of other sites with unspecified severity 12/07/2023 Palpitations 12/07/2023 Atrial fibrillation with rapid ventricular respo nse 12/07/2023 Seasonal allergic rhinitis 12/07/2023 Sinusitis 12/07/2023 Stented coronary artery 12/07/2023 Typical angina 12/07/2023 Ventricular fibrillation 12/07/2023 Ventricular fibrillation seen on security monitor 12/07/2023 Ventricular tachyarrhythmia 12/07/2023 Failed flap 06/28/2023 Skin flap necrosis 06/28/2023 Atherosclerosis of artery of extremity with ulce ration 06/02/2023 PAD (peripheral artery disease) 06/01/2023 S/P foot surgery 06/01/2023 Cellulitis of left lower extremity 05/28/2023 Open wound of left foot 04/26/2023 Overview (04/26/2023): Added automatically from request for surgery [id number] Hammertoe of left foot 06/08/2022 Overview (06/08/2022): Added automatically from request for surgery [id number] Pain in left foot 06/08/2022 Overview (06/08/2022): Added automatically from request for surgery [id number] Gangrene of left foot 06/08/2022 Overview (06/08/2022): Added automatically from request for surgery [id number] Vaping nicotine dependence, non-tobacco product 03/05/2022 COPD [...] (02/08/2023): Added automatically from request for surgery [id number] Osteomyelitis of second toe of left foot 02/05/2023 06/01/2023 Overview (02/05/2023): Added automatically from request for surgery [id number] Atherosclerosis of [place] of left lower extremity with ulceration 09/07/2022 06/01/20 23 Atherosclerosis of [place] of left lower extremity with gangrene 03/05/2022 06/01/2023 WI (myocardial infarction) 06/27/2016 0 06/01/2023 STEMI (ST elevation myocardial infarction) 06/01/2023 Overview (04/05/2017): STEMI with 3 NORI to RCA Foot ulceration, left, with necrosis of muscle 04/07/2024 Chronic toe ulcer, left, wit h necrosis of bone 06/01/2023 Encounters Date Type Department Care Team Description 06/25/2025 2:34 PM EDT - 06/25/2025 11:59 PM EDT Hospital Encounter [facility] [place] [address] [place] [place] [address] Cristi Pelletier DPM Pressure ulcer of left heel, stage 4 (HCC) (Primary Dx) Discharge Disposition: Home or Self Care 06/11/2025 2:45 PM EDT - 06/11/2025 11:59 PM EDT Hospital Encounter [facility] [place] [address] [place] [address] Cristi Pelletier DPM Pressure ulcer of left heel, stage 4 (HCC) (Primary Dx); 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) Discharge Disposition: Home or Self Care 06/04/2025 2:01 PM EDT - 06/04/2025 11:59 PM EDT Hospital Encounter [facility] [place] [address] [place] [address] Cristi Pelletier DPM Pressure ulcer of left heel, stage 4 (HCC) (Primary Dx) Discharge Disposition: Home or Self Care 05/14/2025 2:44 PM EDT - 05/14/2025 11:59 PM EDT Hospital Encounter [facility] [place] [address] [place] [address] Cristi Pelletier, DPJeremi Pressure ulcer of left heel, stage 4 (HCC) (Primary Dx); 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) Discharge Disposition: Home or Self Care 05/07/2025 1:45 PM EDT - 05/07/2025 11:59 PM EDT Hospital Encounter [facility] [place] [address] [place] [address] Cristi Pelletier DPJeremi Pressure ulcer of left heel, stage 4 (HCC) (Primary Dx) Discharge Disposition: Home or Self Care 04/23/2025 2:30 PM EDT - 04/23/2025 11:59 PM EDT Hospital Encounter [facility] [place] [address] [place] [address] Jabari Corado Jr., MD Pressure ulcer of left heel, stage 4 (HCC) (Primary Dx); 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) Discharge Disposition: Home or Self Care 04/16/2025 2:30 PM EDT - 04/16/2025 11:59 PM EDT Hospital Encounter [facility] [place] [address] [place] [address] Cristi Pelletier, DPM 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) (Primary Dx); Pressure ulcer of left heel, stage 4 (HCC) Discharge Disposition: Home or Self Care from Last 3 Months Surgical History Surgery Date Site/Laterality Comments CARDIAC PACEMAKER PLACEMENT 11/05/2016 PJM Dual PPM CORONARY ANGIOPLASTY WITH STENT PLACEMENT [...] IR REVAS FEM POP ART UNILAT W PRODUCTION BROACHING MACHINE OPERATOR 03/13/2022 IR REVAS FEM POP ART UNILAT W PRODUCTION BROACHING MACHINE OPERATOR 03/13/2022 Kashif Wong MD EDG IR COLONOSCOPY HAMMER TOE SURGERY 06/15/2022 Foot/Ankle/Left Left foot Correction of hammer toe deformity with arthroplasty second and third toe. Left foot Application of skin graft substitute.; Surgeon: Jabari Hill DPM; Location: [facility]; Service: Podiatry Medical devices from this surgery are in the Medical Devices section. SKIN GRAFT 06/15/2022 Left Surgeon: Jabari Hill DPM; Location: [facility]; Service: Podiatry Medical devices from [facility]; Service: Orthopedics Medical devices from this surgery are in the Medical Devices section. SKIN GRAFT 12/23/2022 Left . ; Surgeon: Jabari Hill DPM; Location: [facility]; Service: Orthopedics Medical devices from this surgery are in the Medical Devices section. TOE AMPUTATION 02/10/2023 Foot/Ankle/Left Foot/Ankle/Left Left foot second toe amputation, Left foot excisional debridement with application of skin graft substitute; Surgeon: Jabari Hill DPM; Location: [facility]; Service: Orthopedics Medical devices from this surgery are in the Medical Devices section. FOOT SURGERY 02/10/2023 Foot/Ankle/Left Surgeon: Jabari Hill DPM; Location: [facility]; Service: Orthopedics Medical devices from this surgery are in the Medical Devices section. SKIN GRAFT 02/10/2023 Surgeon: Jabari Hill DPM; Location: [facility]; Service: Orthopedics Medical devices from this surgery are in the Medical Devices section. TOE AMPUTATION 05/19/2023 Foot/Ankle/Left Left Left Left foot, amputation of third toe. Left foot, wound debridment application. Left foot, skin graft substitute. Left foot wound debridment closure.; Surgeon: Jabari Hill DPM; Location: [facility]; Service: Orthopedics Medical devices from this surgery are in the Medical Devices section. DEBRIDEMENT 05/19/2023 Left .; Surgeon: Jabari Hill DPM; Location: [facility]; Service: Orthopedics Medical devices from this surgery are in the Medical Devices section. LAYER WOUND CLOSURE 05/19/2023 Left .; Surgeon: Jabari Hill DPM; Location: [facility]; Service: Orthopedics Medical devices from this surgery are in the Medical Devices section. FOOT SURGERY 06/06/2023 Foot/Ankle/Left left FOOT TRANSMETATARSAL amputation; Surgeon: Jabari Hill DPM; Location: [facility]; Service: Podiatry Medical devices [...] IR REVAS FEM POP ART UNILAT W PRODUCTION BROACHING MACHINE OPERATOR 06/02/2023 IR REVAS FEM POP ART UNILAT W PRODUCTION BROACHING MACHINE OPERATOR 06/02/2023 Vishnu Penn MD EDG [...] IR REVAS FEM POP ART UNILAT W PRODUCTION BROACHING MACHINE OPERATOR 12/28/2024 IR REVAS FEM POP ART UNILAT W PRODUCTION BROACHING MACHINE OPERATOR 12/28/2024 Vishnu Penn MD EDG [...] 25% COPD (chronic obstructive pu lmonary disease) ([facility]) HLD (hyperlipidemia) Hypertension Emphysema, unspecified ([facility]) CAD (coronary artery disease) STEMI (ST elevation myocardi al infarction) ([facility]) STEMI with 3 NORI to RCA Cardiac pacemaker SJ Dual PPM - Dr. Cleaning History of cardiac cath 03/23/[address] aced in Right leg 03/23/2017 WI (myocardial infarction) ([facility]) 06/2016 Depression with anxiety Essential hypertension [...] pur e alcohol) [facility] Utilities Answer Date Recorded In the [...] Date Recorded PHQ-2 Total Score 0 12/28/2024 [facility] - Occupational Stress [...] needed for daily living? No 05/29/[address] [facility] IP Transportation Answer D ate [...] on file Sexual Orientation Not on file Last Filed Vital Signs Vital Sign Reading Time Taken Comments Blood Pressure 102/66 06/25/2025 2:49 PM EDT Pulse 70 06/25/2025 2:49 PM EDT Temperature 36.2 C (97.2 F) 06/25/2025 2:49 PM EDT Respiratory Rate 18 06/25/2025 2:49 PM EDT Oxygen Saturation 96% 01/01/2025 2:00 PM EDT Inhaled Oxygen Concentration - - Weight 69.8 kg (153 lb 12.8 oz) 03/27/2025 8:38 AM EDT Height 162.6 cm (5' 4 ) 03/27/2025 8:38 AM EDT Body Mass Index 26.4 03/27/2025 8:38 AM EDT Plan of Treatment Upcoming Encounters Date Type Department Care Team (Late st Contact Info) Description 07/16/2025 2:30 PM EDT Appointment [facility] [place] [address] [place] [address] Cristi Pelletier, DPM [address] [facility] [address] [place] [address] 11/12/2025 1:30 PM EST Appointment [facility] [address] [place] [address] Drive [address] [place] [address] Nette Jalloh APRN [address] [facility] [address] [place] [address] 11/12/2025 2:40 PM EST Office Visit [facility] [address] [place] [address] January, Nette Rand, TECHNICAL WRITER [address] [place] [address] Health Maintenance Due Date Last [...] 08/27/2021, 01/08/2021, Additional history exists Influenza Vaccine Completed 06/19/2025, , 07/09/2021, Additional history exists Meningococcal B Vaccine Aged [...] tibial pulses. Medical Devices Implanted Type Area Manager Tax Device Identifier Shelf Expiration Date Model / Serial / Lot Defib Graft Tissue Myriad Thin 5 X 5cm - [id number] Implanted:Qty: 1 on 06/15/2022 by Jabari Hill DPM at [facility] Left: Foot [employer]OA [employer] 07/27/2022 [id number] US / / [id number] Wire Denise 0.061tps3.5in Microaire [facility] Dbl End [facility] Pnt - [id number] Implanted:Qty: 2 on 06/15/2022 by Jabari Hill, ROGER at [facility] Left: Foot MICROAIRE SURG INSTR 11/22/2025 [id number] / / [id number] Stent Enpros 8mm 7fr Intro 38mm 80cm Icast Trachbr Be Cvr-11/04/2022 Implanted:Qty: 1 on 11/04/2022 by Vishnu Penn MD Left: Iliac Artery GET[employer]E [employer] [place] [id number] / / [id number] Graft Tissue Myriad Thin 5 X 5cm - [id number] Implanted:Qty: 1 on 12/23/2022 by Jabari Hill DPM at [facility] Left: Foot [employer]OS[employer] 02/24/2025 [id number] US / / [id number] Graft Ovine Tissue 500mg Beatriz Duque - [id number] Implanted:Qty: 1 on 12/23/2022 by Jabari Hill, STANLEYM at [facility] Left: Foot [employer]OS[employer] 07/27/2023 [id number] / / [id number] Graft Tissue Myriad Thin 5 X 5cm - [id number] Implanted:Qty: 1 on 02/10/2023 by Jabari Hill, DPM at [facility] Left: Heel [employer]OS[employer] 03/26/2025 [id number] US / / [id number] Graft Tissue Myriad Thin 5 X 5cm - [id number] Implanted:Qty: 1 on 05/19/2023 by Jabari Hill DPM at [facility] Left: Foot [employer] 03/26/2025 [id number] US / / [id number] Graft Tissue Myriad Thin 5 X 5cm - [id number] Implanted:Qty: 1 on 06/06/2023 by Jabari Hill DPM at [facility] Left: Heel [employer]OS[employer] 02/24/2025 [id number] US / / [id number] Insurance [employer] [facility] [place] [address] [facility] [place] [address] Advance Directives For more information, please contact: [phone] * Full Code (Latest Code Status on File) Date Activated Date Inactivated Comments 12/27/2024 10:43 PM 01/01/2025 9:14 PM * Full Code Date Activated Date Inactivated Comments 05/28/2023 10:35 AM 06/11/2023 9:55 PM Care Teams Microfilm Operator Relationship Specialty Start Date End Date William Hunter MD [address] [place] [address] PCP - General Internal Medicine-Adolescent Medicine 05/28/23 González Gotti MD [address] [place] [address] [place] [address] Consulting Physician Internal Medicine - Clinical Cardiac Electrophysiology 04/05/17 Cristi Cleaning MD [address] [place] [address] [place] [address] Physician Internal Medicine-Cardiovascular Disease 04/05/17
--- OUTSIDE RECORDS SUMMARY | 2025-06-29 14:24 | XMS_ITS | Encounter Summary ---
Author Organization Healthcare Address [address] [place] [address] Care Team Providers Care Mate First Name Role Phone Fariha Henderson APRN Primary Care Provider [phone] Encounter Details Date Type Department Care Team (Late st Contact Info) Description 02/18/2022 Community [facility] [address] [place] [address] Jabari Goetz MD [address] [facility] [address] [place] [address] PAD (peripheral artery disease) (CMS/HCC) [...] disease documented in this encounter Care Teams Mate First Relationship Specialty Start Date End Date Fariha Henderson APRN [address] [place] [address] PCP - General 02/07/21 documented as of this encounter
== END 2025-06-29 23:59 | disposition home or self-care (01) ==
LOC: RAD 14:22
PROVIDERS: PCP Nurse Practitioner Family; Visit Provider Nurse Practitioner Family
DX: E27.8 Other specified disorders of adrenal gland (principal); N20.0 Calculus of kidney; Z12.2 Encounter for screening for malignant neoplasm of respiratory organs; Z87.891 Personal history of nicotine dependence
CPT/HCPCS: 71271

== ENCOUNTER 2025-07-23 14:14 | Outpatient (CLI) | payer OTHER, SELFPAY ==
--- OUTSIDE RECORDS SUMMARY | 2024-12-30 17:30 | XMS_ITS ---
Author Organization [facility] Address [address] [place] [address] Care Team Providers Care Cancer Registry Manager Name Role Phone William Hunter Primary Care Provider Sarah Wing Unavailable [phone] Migration, Provider Unavailable Unavailable Allergies Allergen (clinical drug ingredient) Drug/Non Drug Allergy documented on EMR Reaction Allergy Type Onset Date Status Substance with 3-qizscrf-2-methylg lutaryl-coenzyme A reductase inhibitor mechanism of action (substance) Statins couldnt walk Drug Allergy Active codeine Codeine Unknown Drug Allergy Active hydrocodone HYDROcodone itchy and nausea Drug Allergy Active [facility] Encounter Medications Medication SIG (Take, Route, Frequency, Duration) Notes Start Date End Date Status Metoprolol Succinate ER 100 MG TAKE 1 AND 1/2 TABLET BY MOUTH TWICE DAILY; Duration: 30 days Active Aspirin 81 MG 1 TAB(S) ORALLY ONCE A DAY *Please review and pick correct strength-formula tion [facility]. If intended option is not shown, [...] Active Encounters Encounter Location Date Provider Diagnosis [facility] [address] [facility] [address] [place] [address] 12/30/2024 Provider Migration Plan Of Treatment Medication [...] mes a day; Duration: 30 day(s) 08/29/2024 Progress Notes * Rodo GLEZB:1965 (60 yo F)Acc No.[id number]:12/30/2024 Patient: Ashley NICOLE Provider: Janell elizabeth Migration :1965 A ge:59 Y S ex:Female Date:12/30/2024 [id number] Pcp:William Hunter Subjective: * Chief Complaints: * 1 . Multum To Medispan Conversion Encounter. * Medical History: * Medications: T aking Aspirin 81 MG TABLET 1 TAB(S) ORALLY ONCE A DAY , Notes to Pharmacist: *Please review and pick correct strength-formulation from [facility] options. If intended option is not shown, [...] Electronic signature of Prov ider Migration on 07/23/2025 at 03:02 PM EDT Sign off status: Pending * Provider: Janell elizabeth Migration Date: 0 12/30/2024 Generated for Zuleima crockett/Joe/Farrukh on: 1 03:02 PM EDT
--- OUTSIDE RECORDS SUMMARY | 2025-06-04 14:01 | XMS_ITS | Encounter Summary ---
Author Organization [place] [address] Care Team Providers Care Metal Drill Operator Name Role Phone González Gotti MD Unavailable [phone] Cristi Cleaning MD Unavailable [phone] William Hunter MD Primary Care Provider [phone] Reason for Referral * In Office Procedure (Routine) - Pending Review Specialty Diagnoses / Procedures Referred By Contac t Referred To Contact Diagnoses Pressure ulcer of left heel, stage 4 (HCC) Procedures [place] DEBRIDEMENT SUBCUTANEOUS TISSUE 1ST 20 SQ CM/< Cristi Pelletier DPM [address] [address] Phone: tel: fax: Referral ID Status Reason Start Date Expiration Date V isits Requested Visits Authorized [id number] Pending Review 06/10/2025 06/10/2026 1 1 * (Routine) - Pending Review Specialty Diagnoses / Procedures Referred By Contac t Referred To Contact Diagnoses Pressure ulcer of left heel, stage 4 (HCC) Procedures [facility] PRIMARY DRESSING Cristi Pelletier DPM [address] [address] Phone: tel: fax: Referral ID Status Reason Start Date Expiration Date V isits Requested Visits Authorized [id number] Pending Review 06/04/2025 06/04/2026 1 1 Reason [...] WND EA ADDL 20 SQ CM/PRT THEREOF [facility] [place] [address] [place] [address] Phone: tel: fax: Referral ID Status Reason Start Date Expiration Date Visits Requested Visits Authorized [id number] Authorization Not Needed Specialty Services Required 5 01/08/2026 99 99 Encounter Details Date Type Department Care Team (Latest Contact Info) Description 06/04/2025 2:01 PM EDT - 06/04/2025 11:59 PM EDT Hospital Encounter [facility] [address] [place] [address] Cristi Pelletier DPM [phone] [address] Pressure ulcer of left heel, stage 4 (HCC) (Primary Dx) Discharge Disposition: Home or Self Care Social History Tobacco Use Types Packs/Day Years Used Date Smoking Tobacco: Former Cigarettes 0.3 40 0 12/26/1981 - 12/26/2021 Passive Smoke Exposure: Past Smokeless Tobacco: Never Alcohol Use Standard Drinks/Week Comments Not Currently 0 (1 standard drink = 0.6 oz pur e alcohol) [facility] Utilities Answer Date Recorded In [...] Recorded PHQ-2 Total Score 0 12/28/2024 [facility] - Occupational Stress Questionnaire Answer Date [...] things needed for daily living? No 05/29/2023 [facility] IP Transportation Answer D ate [...] every 6 hours as needed for Wheezing. apixaban (ELIQUIS) 5 mg Oral Tablet Take [...] Tablet by mouth 2 times daily. 10/03/2024 gabapentin (NEURONTIN) 300 mg Oral Capsule Take [...] ORAL Take 1 Tablet by mouth daily. amLODIPine (NORVASC) 5 mg Oral Tablet Take 5 mg by mouth daily. 09/04/2022 amoxicillin (AMOXIL) 500 mg Oral Capsule TAKE ONE CAPSULE BY MOUTH THREE TIMES DAILY UNTIL GONE -- FINISH ALL MEDICINE -- 12/05/2024 evolocumab (REPATHA LUISICK) 140 mg/mL SubQ Pen Injector Subcutaneous (Inject under the skin) 140 mg every 14 days. fluticasone propionate (FLONASE) 50 mcg/actuation Nasl [place], Suspension 1 spay each nostril twice daily 1 Each 3 06/28/2023 hydrOXYzine (ATARAX) 25 mg Oral Tablet 1 tab(s) orally 2 times a day for 30 days 06/24/2023 nitroGLYCERIN (NITROSTAT) 0.4 mg SL Tablet, Sublingual Place 0.4 mg under the tongue every 5 minutes as needed for Chest pain. oxyCODONE-acetami nophen (PERCOCET) 5-325 mg Oral Tablet Take 1-2 Tablets by mouth every 4 hours as needed for Acute Pain (R52). 30 Tablet 06/11/2023 12:19 PM EDT 06/11/2023 oxymetazoline (AFRIN) 0.05 % Nasl [place], Non-Aerosol 1 [place] by Nasal route as needed for Congestion (30 min. prior to HBO2-PRN, difficulty clearing ears.). 06/28/2023 documented as of this encounter Discharge Disposition Disposition Code Departure Means Destination Home or Self Care documented in this encounter Progress Notes * Cristi Pelletier DPM - 06/04/2025 2:15 PM EDT Date of Visit:06/04/2025 Progress Note HPI Ashlye Ding is a 59 y.o. year old female patient who presents today for wound evaluation and follow-up. Daily dressing change Patient denies any fever, chills, nausea or vomiting Improved again Past Medical History: Diagnosis Date Anesthesia complication only with phenergan, alarming how long it takes her to wake up Asthma Bradycardia CAD (coronary artery disease) Cardiac pacemaker [facility] Dual PPM 11/05/2016 - Dr. Cleaning Chronic systolic heart failure ([facility]) COPD (chronic obstructive pulmonary disease) ([facility]) Depression with anxiety Emphysema, unspecified ([facility]) Essential hypertension Headache Heartburn History of cardiac cath 03/23/2017 Stent placed in Right leg 03/23/2017 HLD (hyperlipidemia) Hypertension [place] (myocardial infarction) ([facility]) 06/2016 Pacemaker Post-operative nausea and vomiting Sinus node dysfunction ([facility]) [facility] Dual PPM 11/05/2016 - Dr. Cleaning STEMI (ST elevation myocardial infarction) ([facility]) STEMI with 3 NORI to RCA Systolic heart failure ([facility]) 02/2017 ECHO, EF 25% Past Surgical History: Procedure Laterality Date CARDIAC CATHETERIZATION Right 03/23/2017 stent placed in right leg CARDIAC PACEMAKER PLACEMENT 11/05/2016 [facility] Dual PPM COLONOSCOPY CORONARY ANGIOPLASTY WITH STENT PLACEMENT 06/2016 x3 DEBRIDEMENT Left 05/19/2023 .; Surgeon: Jabari Hill DPM; Location: [facility] MA[facility] OR; Service: Orthopedics FEMUR FRACTURE SURGERY Right right femur fx repair FOOT SURGERY FOOT SURGERY Left 12/23/2022 Left foot heel and second and third toe debridement with application of skin graft substitute. ; Surgeon: Jabari Hill DPM; Location: [facility] OR; Service: Orthopedics FOOT SURGERY Left 02/10/2023 Surgeon: Jabari Hill DPM; Location: [facility] OR; Service: Orthopedics FOOT SURGERY Left 06/06/2023 left FOOT TRANSMETATARSAL amputation; Surgeon: Jabari Hill DPM; Location: [facility] MA[facility] OR; Service: Podiatry HAMMER TOE SURGERY Left 06/15/2022 Left foot Correction of hammer toe deformity with arthroplasty second and third toe. Left foot Application of skin graft substitute.; Surgeon: Jabari Hill DPM; Location: [facility] OR; Service: Podiatry HIP SURGERY [...] IR REVAS FEM POP ART UNILAT W LABORATORY COORDINATOR 03/13/2022 IR REVAS FEM POP ART UNILAT W LABORATORY COORDINATOR 03/13/2022 Kashif Wong MD EDG IR IR REVAS FEM POP ART UNILAT W LABORATORY COORDINATOR 06/02/2023 IR REVAS FEM POP ART UNILAT W LABORATORY COORDINATOR 06/02/2023 Vishnu Penn MD EDG IR IR REVAS FEM POP ART UNILAT W LABORATORY COORDINATOR 12/28/2024 IR REVAS FEM POP ART UNILAT W LABORATORY COORDINATOR 12/28/2024 Vishnu Penn MD EDG IR [...] 05/19/2023 .; Surgeon: Jabari Hill DPM; Location: [facility] OR; Service: Orthopedics SKIN GRAFT Left 06/15/2022 Surgeon: Jabari Hill DPM; Location: [facility] OR; Service: Podiatry SKIN GRAFT Left 12/23/2022 . ; Surgeon: Jabari Hill DPM; Location: [facility] OR; Service: Orthopedics SKIN GRAFT 02/10/2023 Surgeon: Jabari Hill DPM; Location: [facility] OR; Service: Orthopedics TOE AMPUTATION Left 02/10/2023 Left foot second toe amputation, Left foot excisional debridement with application of skin graft substitute; Surgeon: Jabari Hill DPM; Location: [facility]; Service: Orthopedics TOE AMPUTATION Left 05/19/2023 Left foot, amputation of third toe. Left foot, wound debridment application. Left foot, skin graft substitute. Left foot wound debridment closure.; Surgeon: Jabari Hill DPM; Location: [facility] OR; Service: Orthopedics Current Outpatient [...] Myalgia Ezetimibe Myalgia Rosuvastatin Myalgia Simvastatin Myalgia Egfhwhj-Rpl-Xbb Reductase Inhibitors Other (See Comments) Joint pain [...] left heel, stage 4 (HCC) - AMB [facility] PRIMARY DRESSING - WA DEBRIDEMENT [...] 4x4, roll gauze, every other day. 03/26 [facility] Wound [facility] has been contacted to obtain your [...] to reach out to our community service manager, Hanna Riggs at [phone] for any discussion. WHO TO CALL FOR PROBLEMS: Please call the OP wound care center with any problems or issues you may have after your visit or though the week. Each patient is assigned a behavioral health case manager who can assist with issues you may be having. Individual office numbers are listed below. Press 1 for immediate or schedule needs, press 2 for the nursing line. The nurse line is for non-emergent needs and will be answered within 24 hours duringbusiness days. If you have a more immediate concern, press option #1. Office numbers: [phone] Ft. [phone] Mina- [phone] Our offices do not have an on-call provider. If you have emergent needs after hours please contact your primary care provider. You may also utilize the [facility] NOW Helpline: [phone]-NOW for after-hours needs to get in contact with a nurse for assistance. 03/26 [facility] has been contacted to obtain your wound [...] to reach out to our community service manager, Hanna Oneil at [phone] for any discussion. documented in this encounter Plan of Treatment Upcoming Encounters Date Type Department Care Team (Late st Contact Info) Description 07/30/2025 12:45 PM EST Appointment [facility] [place] [address] [place] [address] Cristi Pelletier, DPM [address] [address] 11/12/2025 1:30 PM EST Appointment [facility] [address] [place] [address] [address] [place] [address] Nette Jalloh APRN [address] [place] [address] DR [address] [place] [address] 11/12/2025 2:40 PM EST Office Visit [facility] [address] [place] [address] [address] [place] [address] Nette Jalloh APRN [address] [place] [address] DR [address] [place] [address] Scheduled Orders Name Type Priority Associated Diagnoses Orde r Schedule WA DEBRIDEMENT SUBCUTANEOUS TISSUE 1ST 20 SQ CM/< WA Charge Routine Pressure ulcer of left heel, stage 4 (HCC) Ordered: 06/10/2025 documented as of this encounter Goals Goal Patient Goal Type Associated Problems Recent Progress Patient-Stated? Author Wound Healing General On track(2024 1:17 PM EDT) Tsering Doran RN Note: Wound [...] % ointment Topical, ONCE, 1 dose, On Wed06/04/25 at 1430, Application site: foot Given 06/04/2025 2:23 PM EDT documented in this encounter Orders Medications Ordered That Daniel ht Not Have Been Administered Count Last Ordered Date First Ordered Date lidocaine (XYLOCAINE) 5 % ointment 1 2024 Nursing Count Last Ordered Date First Orde red Date AMB C PRIMARY DRESSING 1 06/04/2025 documented in this encounter Care Teams Metal Drill Operator Relationship Specialty Start Date End Date William Hunter MD [address] [place] [phone] PCP - General Internal Medicine-Adolescent Medicine 05/28/23 González Gotti MD [address] [place] [address] [address] [place] [id number] Consulting Physician Internal Medicine - Clinical Cardiac Electrophysiology 04/05/17 Cristi Cleaning MD [address] [place] [address] [place] [address] Physician Internal Medicine-Cardiovascular Disease 04/05/17 documented as of this encounter
--- OUTSIDE RECORDS SUMMARY | 2025-06-11 14:45 | XMS_ITS | Encounter Summary ---
Author Organization [place] [address] Care Team Providers Care Mule Rider Name Role Phone González Gotti MD Unavailable [phone] Cristi Cleaning MD Unavailable [phone] William Hunter MD Primary Care Provider [phone] Reason for Referral * In Office Procedure (Routine) - Pending Review Specialty Diagnoses / Procedures Referred By Contac t Referred To Contact Diagnoses Pressure ulcer of left heel, stage 4 (HCC) 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) Procedures [place] DEBRIDEMENT SUBCUTANEOUS TISSUE 1ST 20 SQ CM/< Cristi Pelletier DPM [address] [address] Phone: tel: fax: Referral ID Status Reason Start Date Expiration Date V isits Requested Visits Authorized [id number] Pending Review 06/12/2025 06/12/2026 1 1 * (Routine) - Pending Review Specialty Diagnoses / Procedures Referred By Contac t Referred To Contact Diagnoses Pressure ulcer of left heel, stage 4 (HCC) Procedures [facility] PRIMARY DRESSING Cristi Pelletier DPM [address] [address] Phone: tel: fax: Referral ID Status Reason Start Date Expiration Date V isits Requested Visits Authorized [id number] Pending Review 06/11/2025 06/11/2026 1 1 Reason for Visit * Consultation (Routine) - Authorization Not Needed Specialty Diagnoses / Procedures Referred By Brian t Referred To Contact Wound Care Diagnoses Wound Care Procedures [place] DEBRIDEMENT SUBCUTANEOUS TISSUE 1ST 20 SQ CM/< [place] DEBRIDEMENT MUSCLE &/FASCIA 1ST 20 SQ CM/< [place] DEBRIDEMENT BONE 1ST 20 SQ CM/< [place] DEBR[place]EMENT SUBCUTANEOUS TISSUE EA ADDL 20 SQ CM [place] DEBRIDEMENT MUSCLE &/FASCIA EA ADDL 20 SQ CM [place] DEBR[place]EMENT BONE EACH ADDITIONAL 20 SQ CM [place] DEBRIDEMENT OPEN WOUND FIRST 20 SQ CM/< [place] DEBRIDEMENT OPN WND EA ADDL 20 SQ CM/PRT THEREOF [facility] Wound Care Center [address] [place] [address] Phone: tel: fax: Referral ID Status Reason Start Date Expiration Date Visits Requested Visits Authorized [id number] Authorization Not Needed Specialty Services Required 5 01/08/2026 99 99 Encounter Details Date Type Department Care Team (Latest Contact Info) Description 06/11/2025 2:45 PM EDT - 06/11/2025 11:59 PM EDT Hospital Encounter [facility] Wound Care Center [address] [place] [address] Cristi Pelletier DPM [address] [address] Pressure ulcer of left heel, [...] drink = 0.6 oz pur e alcohol) [facility] Utilities Answer Date Recorded In the past 12 months has [facility] [employer], oil, or water [employer] threatened to shut off services in your home? No 12/28/2024 Overall Financial Resource Strain (CARDIA) Answe r Date Recorded How hard is it for you to pa y for the very basics like food, housing, medical care, and heating? Not hard at all 12/28/2024 PHQ-2 Answer Date Recorded PHQ-2 Total Score 0 12/28/2024 [facility] - Occupational Stress Questionnaire Answer [...] for daily living? No 05/29/2023 [facility] IP Transportation Answer D ate Recorded [...] -- FINISH ALL MEDICINE -- 12/05/2024 evolocumab (REPVALERY GREEN) 140 mg/mL SubQ Pen Injector Subcutaneous (Inject under the skin) 140 mg every 14 days. fluticasone propionate (FLONASE) 50 mcg/actuation Nasl [place], Suspension 1 spay each nostril twice daily [...] EDT 06/11/2023 oxymetazoline (AFRIN) 0.05 % Nasl [place], Non-Aerosol 1 [place] by Nasal route as needed for Congestion [...] CAD (coronary artery disease) Cardiac pacemaker [facility] Dual PPM 11/05/2016 - Dr. Cleaning Chronic systolic heart failure ([facility]) COPD (chronic obstructive pulmonary disease) ([facility]) Depression with anxiety Emphysema, unspecified ([facility]) Essential hypertension Headache Heartburn History of cardiac cath 03/23/2017 Stent placed in Right leg 03/23/2017 HLD (hyperlipidemia) Hypertension [place] (myocardial infarction) ([facility]) 06/2016 Pacemaker Post-operative nausea and vomiting Sinus node dysfunction ([facility]) [facility] Dual PPM 11/05/2016 - Dr. Cleaning STEMI (ST elevation myocardial infarction) ([facility]) STEMI with 3 NORI to RCA Systolic heart failure ([facility]) 02/2017 ECHO, EF 25% Past Surgical History: Procedure Laterality Date CARDIAC CATHETERIZATION Right 03/23/2017 stent placed in right leg CARDIAC PACEMAKER PLACEMENT 11/05/2016 [facility] Dual PPM COLONOSCOPY CORONARY ANGIOPLASTY WITH STENT PLACEMENT 06/2016 x3 DEBRIDEMENT Left 05/19/2023 .; Surgeon: Jabari Hill DPM; Location: [facility] MAIN OR; Service: Orthopedics FEMUR FRACTURE SURGERY Right right femur fx repair FOOT SURGERY FOOT SURGERY Left 12/23/2022 Left foot heel and second and third toe debridement with application of skin graft substitute. ; Surgeon: Jabari Hill DPM; Location: [facility] MA[facility] OR; Service: Orthopedics FOOT SURGERY Left 02/10/2023 Surgeon: Jabari Hill DPM; Location: [facility] MA[facility] OR; Service: Orthopedics FOOT SURGERY Left 06/06/2023 left FOOT TRANSMETATARSAL amputation; Surgeon: Jabari Hill DPM; Location: [facility] MAIN OR; Service: Podiatry HAMMER TOE SURGERY Left 06/15/2022 Left foot Correction of hammer toe deformity with arthroplasty second and third toe. Left foot Application of skin graft substitute.; Surgeon: Jabari Hill DPM; Location: [facility] MA[facility] OR; Service: Podiatry HIP SURGERY [...] IR ANGIOGRAM FEMORAL ARTERIO SHIFT 11/04/2022 Vishnu Pnen MD [facility] IR IR ANGIOGRAM FEMORAL ARTERIO SHIFT 06/02/2023 IR ANGIOGRAM FEMORAL ARTERIO SHIFT 06/02/2023 Vishnu Penn MD [facility] IR IR ANGIOGRAM FEMORAL ARTERIO SHIFT 12/27/2024 IR ANGIOGRAM FEMORAL ARTERIO SHIFT 12/27/2024 Fili, Vishnu H, MD [facility] IR IR REVAS FEM POP ART UNILAT W LENGTH CONTROL TESTER 03/13/2022 IR REVAS FEM POP ART UNILAT W LENGTH CONTROL TESTER 03/13/2022 Kashif Wong MD [facility] IR IR REVAS FEM POP ART UNILAT W LENGTH CONTROL TESTER 06/02/2023 IR REVAS FEM POP ART UNILAT W LENGTH CONTROL TESTER 06/02/2023 Vishnu Penn MD [facility] IR IR REVAS FEM POP ART UNILAT W LENGTH CONTROL TESTER 12/28/2024 IR REVAS FEM POP ART UNILAT W LENGTH CONTROL TESTER 12/28/2024 Vishnu Penn MD [facility] IR IR TRANS ART OR PAO FOR THROMB SUBSQ DAY FU CATH CONT INJ+CLOS 12/29/2024 IR TRANS ART OR PAO FOR THROMB SUBSQ DAY FU CATH CONT INJ+CLOS 12/29/2024 Vihsnu Penn MD [facility] IR IR TRANS ART [...] 05/19/2023 .; Surgeon: Jabari Hill DPM; Location: [facility] OR; Service: Orthopedics SKIN GRAFT Left 06/15/2022 Surgeon: Jabari Hill DPM; Location: [facility] OR; Service: Podiatry SKIN GRAFT Left 12/23/2022 . ; Surgeon: Jabari Hlil DPM; Location: [facility] OR; Service: Orthopedics SKIN GRAFT 02/10/2023 Surgeon: Jabari Hill DPM; Location: [facility] OR; Service: Orthopedics TOE AMPUTATION Left 02/10/2023 Left foot second toe amputation, Left foot excisional debridement with application of skin graft substitute; Surgeon: Jabari Hill DPM; Location: [facility] OR; Service: Orthopedics TOE AMPUTATION Left 05/19/2023 Left foot, amputation of third toe. Left foot, wound debridment application. Left foot, skin graft substitute. Left foot wound debridment closure.; Surgeon: Jabari Hill DPM; Location: [facility]; Service: Orthopedics Current Outpatient [...] days. fluticasone propionate (FLONASE) 50 mcg/actuation Nasl [place], Suspension 1 spay each nostril twice daily [...] Chest pain. oxymetazoline (AFRIN) 0.05 % Nasl [place], Non-Aerosol 1 [place] by Nasal route as needed for Congestion [...] Myalgia Ezetimibe Myalgia Rosuvastatin Myalgia Simvastatin Myalgia Ofokivo-Olu-Bft Reductase Inhibitors Other (See Comments) Joint pain [...] left heel, stage 4 (HCC) - [facility] PRIMARY DRESSING - [place] DEBRIDEMENT SUBCUTANEOUS TISSUE 1ST 20 SQ CM/< 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) - [place] DEBRIDEMENT SUBCUTANEOUS TISSUE 1ST 20 SQ CM/< [...] 4x4, roll gauze, every other day. 03/26 [facility] Wound [facility] has been contacted to obtain your [...] to reach out to our community service patrol officer, Hanna Riggs at [phone] for any discussion. WHO TO CALL FOR PROBLEMS: Please call the OP wound care center with any problems or issues you may have after your visit or though the week. Each patient is assigned a continuous pillowcase cutter who can assist with issues you may be having. Individual office numbers are listed below. Press 1 for immediate or schedule needs, press 2 for the nursing line. The nurse line is for non-emergent needs and will be answered within 24 hours duringbusiness days. If you have a more immediate concern, press option #1. Office numbers: [phone] Ft. [phone] [facility] [phone] Our offices do not have an on-call provider. If you have emergent needs after hours please contact your primary care provider. You may also utilize the [place] Nurse NOW Helpline: 3-872-4EKF-NOW for after-hours needs to get in contact with a nurse for assistance. 03/26 [facility] [facility] has been contacted to obtain your wound [...] to reach out to our community service patrol officer, Hanna Riggs at [phone] for any discussion. documented in this encounter Plan of Treatment Upcoming Encounters Date Type Department Care Team (Late st Contact Info) Description 07/30/2025 12:45 PM EST Appointment [facility] Wound Care Center [place] [address] [facility] [place] [address] Cristi Pelletier, DPM [address] [address] 11/12/2025 1:30 PM EST Appointment [facility] [address] [place] [address] [address] [place] [address] Nette Jalloh APRN [address] [place] [address] [phone] 11/12/2025 2:40 PM EST Office Visit [facility] [address] [place] [address] [address] [place] [address] Nette Jalloh APRN [address] [place] [address] [phone] Scheduled Orders Name Type Priority Associated Diagnoses Orde r Schedule [place] DEBRIDEMENT SUBCUTANEOUS TISSUE 1ST 20 SQ CM/< [place] Charge Routine Pressure ulcer of left heel, stage 4 (HCC) 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) Ordered: 06/12/2025 documented as of this encounter Goals Goal Patient Goal Type Associated Problems Recent Progress Patient-Stated? Author Wound Healing General On track(2024 1:17 PM EDT) No Maris, Tsering M., RN Note: Wound Care Goals LEFT HEEL [...] % ointment Topical, ONCE, 1 dose, On 06/11/25 at 1515, Application site: left foot Given 06/11/2025 3:13 PM EDT documented in this encounter Orders Medications Ordered That Daniel ht Not Have Been Administered Count Last Ordered Date First Ordered Date lidocaine (XYLOCAINE) 5 % ointment 1 2024 Nursing Count Last Ordered Date First Orde red Date AMB C PRIMARY DRESSING 1 06/11/2025 documented in this encounter Care Teams Mule Rider Relationship Specialty Start Date End Date William Hunter MD [facility] [place] [address] PCP - General Internal Medicine-Adolescent Medicine 05/28/23 González Gotti MD [address] [place] [address] Consulting Physician Internal Medicine - Clinical Cardiac Electrophysiology 04/05/17 Cristi Cleaning MD [address] [address] Physician Internal Medicine-Cardiovascular Disease 04/05/17 documented as of this encounter
--- OUTSIDE RECORDS SUMMARY | 2025-06-19 05:45 | XMS_ITS ---
Author Organization [facility] Address [address] [place] [address] Care Team Providers Care Lock Tender Name Role Phone William Hunter Primary Care Provider Sarah Wing [phone] Allergies Allergen (clinical drug ingredient) Drug/Non Drug Allergy documented on EMR Reaction Allergy Type Onset Date Status Substance with 8-rhphcyk-5-methylg lutaryl-coenzyme A reductase inhibitor mechanism of action (substance) Statins couldnt walk Drug Allergy Active codeine Codeine Unknown Drug Allergy Active hydrocodone HYDROcodone itchy and nausea Drug Allergy Active Results Component Value Reference Range Notes M-Complete Blood Count Auto Diff Reviewed date:06/20/2025 04:54:54 PM Interpretation: Performing Lab: Notes/Report: WBC 6.3 4.8-10.8 K/mm3 RBC 4.70 4.20-5.40 M/mm3 HGB 14.0 12.2-16.2 g/dL HCT 41.8 37.0-47.0 % MCV 88.9 81-99 fl MCH 29.8 27.0-31.2 pg MCHC 33.5 31.8-35.4 g/dL RDW 13.6 11.5-17.5 % PLT 241 142-424 K/mm3 MPV 9.8 7.4-10.4 fl NE% 64.5 37.0-80.0 % LY% 25.8 10-50 % MO% 6.7 1.7-9.3 % EO% 2.2 0.1-12.0 % BA% 0.5 0.1-2.0 % NE# 4.1 1.8-7.8 K/mm3 LY# 1.6 0.7-4.5 K/mm3 MO# 0.4 0.1-1.0 K/mm3 EO# 0.1 0.0-0.4 Kmm3 BA# 0.0 0-0.2 K/mm3 RDW-SD 44.3 NRBC% 0 IG% 0.3 NRBC# 0 IG# 0.02 M-Comprehensive Metabolic Pa estella Reviewed date:06/20/2025 11:23:30 AM Interpretation: Performing Lab: Notes/Report: NA 140 136-145 mmol/L K 3.9 3.5-5.1 mmoL/L CL 104 98-107 mmol/L CO2 24 22.0-30.0 mmol/L GAP 15.9 5-15 mEq/L BUN 15 7-17 mg/dl CREATT 0.80 0.52-1.04 mg/dl GFRAA 89 >60 ML/MIN EGFR 73 >60 ml/min GLU 109 74-100 mg/dl CA 9.4 8.4-10.2 mg/dl BILIT 0.7 0.2-1.3 mg/dl AST 30 14-36 U/L ALT 22 12-78 U/L TP 7.0 6.3-8.2 g/dl ALB 4.5 3.5-5.0 g/dl GLOB 2.5 1.3-3.2 g/dL AGRATIO 1.8 1.1-1.8 ALP 79 38-126 U/L M-Lipid Panel Reviewed date:06/20/2025 11:23:30 AM Interpretation: Performing Lab: Notes/Report: Patient Fasting? Y TRIG 712 30-150 mg/dl If Triglyceride value exceeds 400mg/dL, the VLDL value has no clinical significance. The calculations are accurate for specimens in which the TGL concentration is no more than 400mg/dL and which are not from persons who have Type III Hyperlipoproteinemia. CHOL 220 140-200 mg/dl DLDL 69.42 100-129 mg/dL HDL 35 40-60 mg/dl CHLHDL 6.3 1-3.5 CT Scan : Chest, Lung Cancer Screening Reviewed date:07/02/2025 03:22:15 PM Interpretation: Performing Lab: Notes/Report: Reason For Referral Reason CT scan lung cancer screening Diagnosis 1 History of tobacco u se (Z87.891) Referral Organization [facility] Referring Provider First Name Sarah Referring Provider Last Name Tariqjeanie Referring Provider Speciality Family Fadi thorpe Referred Organization [facility] Referred Address [address] [facility] [facility], [place], [place],[address], Referred Provider Specialty Diagnostic R adiology General Notes Vijaya Gomez 2024 02:24:41 PM >sent to [facility] to schedule Referral Priority Routine REASON FOR VISIT F/U-fasting Medications Medication SIG (Take, Route, Frequency, Duration) Notes Start Date End Date Status Pantoprazole Sodium 40 MG 1 tab(s) orall y once a day Active Aspirin 81 MG 1 TAB(S) ORALLY ONCE A DAY Active Jardiance 10 MG 1 tab(s) orally once a day (in the morning) Active rOPINIRole HCl 0.25 MG 1 tab(s) orally a t bedtime Active Nitroglycerin 0.4 MG 1 tab(s) sublingual ly every 5 minutes prn Active Eliquis 5 mg TAKE ONE TABLET BY MOUTH TWICE DAILY; Duration: 60 Active hydrOXYzine HCl 25 MG 1 tab(s) orally 2 times a day; Duration: 30 days 06/24/2023 Active Metoprolol Succinate ER 100 MG TAKE 1 AND 1/2 TABLET BY MOUTH TWICE DAILY; Duration: 90 days Active Gabapentin 300 MG 1 cap(s) orally 2 ti mes a day; Duration: 30 day(s) 03/05/2025 Active Magnesium Gluconate 250 MG 1 tab(s) oral ly once a day Active Isosorbide Mononitrate ER 12 0 MG 1 tab(s) orally once a day (in the morning) Active hydroCHLOROthiazide 25 MG 1 tab(s) orall y every other day Active Repatha 140 MG/ML subcutaneously every 2 weeks Active RANEXA 1000 MG 1 TAB(S) ORALLY 2 TI MES A DAY Active Plavix 75 MG 1 tab(s) orally once a day Active Immunizations Vaccine Route Administration Date Status Comme nts FLUCELVAX IM Intramuscular 06/19/2025 Administered Social History Tobacco Use: Social History Observation Description Date Details (start date - stop date) Former Smoker NA - NA Smoking: Question Answer Notes Are you a: former smoker How long has it been since you last smoked? 6-12 months Vital Signs Temperature 95 degrees Fahrenheit 06/19/2025 Heart Rate 94 /min 06/19/2025 Blood pressure systolic 130 mm Hg 06/19/20 25 Blood pressure diastolic 82 mm Hg 025 Height 64 in 06/19/2025 Weight 154 lbs 06/19/2025 BMI 26.43 kg/m2 06/19/2025 Encounters Encounter Location Date Provider Diagnosis [facility] [address] [place], [place] [address] 06/19/2025 Sarah Wing Routine medical exam Z00.00 ; Coronary artery disease involving [place] coronary artery of [place] heart without angina pectoris I25.10 ; Gastroesophageal reflux disease without esophagitis K21.9 ; Chronic systolic heart failure I50.22 ; Peripheral arterial disease I73.9 ; Paroxysmal atrial fibrillation I48.0 ; Hyperlipemia E78.5 ; Essential hypertension I10 ; History of tobacco use Z87.891 ; Medically noncompliant Z91.199 ; Encounter for immunization Z23 and Visit for screening mammogram Z12.31 Assessments Encounter Date Diagnosis (ICD Code) Assessment Notes Treatment Notes Treatment Clinical Notes Section Notes 06/19/2025 Routine medical exam (ICD-10 - Z00.00) Order provided for fasting labs Needs cologuard, has at home Pt was advised to reach out if she has not been scheduled for her imaging follow-up based on her mammogram and breast ultrasound findings by August 27. flu shot given 06/19/2025 Coronary artery disease involving [place] coronary artery of [place] heart without angina pectoris (ICD-10 - I25.10) No acute angina. Keep FU with cardiology 06/19/2025 Gastroesophageal reflux disease without esophagitis (ICD-10 - K21.9) Well controlled on PPI, continue therapy. 06/19/2025 Chronic systolic heart failure (ICD-10 - I50.22) Euvolemic today on exam, no current concerns or changes made today. Told to continue f/u with Cardiology. 06/19/2025 Peripheral arterial disease (ICD-10 - I73.9) Risk factor modification, refrain from smoking maximize LDL, blood pressure control. Keep FU with vascular surgery and podiatry. 06/19/2025 Paroxysmal atrial fibrillation (ICD-10 - I48.0) Rate well controlled. Eliquis for anticoagulation. No signs of excessive bleeding. Labs will be drawn today and reviewed personally to evaluate efficacy of current medication regimen. 06/19/2025 Hyperlipemia (ICD-10 - E78.5) On repatha, tolerates well. Labs will be drawn today and reviewed personally to evaluate efficacy of current medication regimen. 06/19/2025 Essential hypertension (ICD-10 - I10) Blood pressure at goal, no changes made at this time. 06/19/2025 History of tobacco use (ICD-10 - Z87.891) Pt reports smoking cessation status at this time. Pt was encouraged to continue. Need CT lung cancer screening, will arrange 06/19/2025 Medically noncompliant (ICD-10 - Z91.199) Pt explains she has been making an effort to be more compliant, pt was encouraged to continue her efforts and follow-up as needed. 06/19/2025 Encounter for immunization (ICD-10 - Z23) Flu shot administered and tolerated well. 06/19/2025 Visit for screening mammogram (ICD-10 - Z12.31) Plan Of Treatment Treatment Notes Assessment Notes Routine medical exam Order provided for fasting labs Needs antonio has at home Pt was advised to reach out if she has not been scheduled for her imaging follow-up based on her mammogram and breast ultrasound findings by August 27. flu shot given Coronary artery disease invo lving [place] coronary artery of [place] heart without angina pectoris No acute angina. Keep FU with cardiology Gastroesophageal reflux dise ase without esophagitis Well controlled on PPI, continue therapy. Chronic systolic heart failure Euvolemic today on exam, no current concerns or changes made today. Told to continue f/u with Cardiology. Peripheral arterial disease Risk factor modification, refrain from smoking maximize LDL, blood pressure control. Keep FU with vascular surgery and podiatry. Paroxysmal atrial fibrillation Rate well controlled. Eliquis for anticoagulation. No signs of excessive bleeding. Labs will be drawn today and reviewed personally to evaluate efficacy of current medication regimen. Hyperlipemia On repatha, tolerate s well. Labs will be drawn today and reviewed personally to evaluate efficacy of current medication regimen. Essential hypertension Blood pressure at goal, no changes made at this time. History of tobacco use Pt reports smokin g cessation status at this time. Pt was encouraged to continue. Need CT lung cancer screening, will arrange Medically noncompliant Pt explains she h as been making an effort to be more compliant, pt was encouraged to continue her efforts and follow-up as needed. Encounter for immunization Flu shot admi nistered and tolerated well. Pending Test Test Name Order Date Mammogram : Bilateral 06/19/2025 Referrals Referral Date Details 06/19/2025 06/19/2025, CT scan lung cancer screening, [address] [facility], [place], [address], Next Appt Details Follow Up: 6 Months,Jesusita carroll son: Progress Notes * Rodo DINGB:1965 (59 yo F)Acc No.[id number]:06/19/2025 Progress Notes Patient: Ashley NICOLE Provider: Jeremi Wing APRN :1965 A ge:59 Y S ex:Female Date:06/19/2025 Address:[address] [place] [address] [id number] Pcp:William Hunter Subjective: * Chief Complaints: * 1 . F/U-fasting. * HPI: g en: Gen [age]yo female comes in for follow up. Since lat visit, pt had a heart cath and stent placed by Cardiology team. Pt explains she has not started Cardiac rehabilitation yet but she has been contacted by their office for scheduling. Pt explains labs have not been drawn since before her cath. Pt denies any chest pain, palpitations, dizziness, or headaches. Pt denies any new dyspnea on exertion and is able to perform her ADLs without significant difficulty. Pt reports comlpete smoking cessation since her last visit. Pt explains she has been doing well at avoiding smoking. 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 Pt is still seeing Vascular at [place] for monitoring. Pt explains she has one lesion on her left heel that is still in the process of healing. Pt explains the area has been healing well and she checks it and redresses it daily. Pt denies any new foot lesions or concerns. Pt is currently fasting and explains she was unable to return to have lab work when ordered at previous visits. Pt denies any changes to bowel or bladder habits. P t reports she has not yet completed her Cologuard screening. Pt has no other concerns today.. * ROS: R ESPIRATORY: no C hest [...] Angiogram 01/28/23, Transmetatarsal Amputation of Left toe 06/05/23, Heart Cath-1 Cardiac Stent 04/2025. * Hospitalization/Major Diagno stic Procedure: M I 06/2016, chest pain 2006, [facility]- defibrillator shock, foot infection 12/2021, [place] [facility] 05/2023, [facility]- blood cot 12/2024. * Family History: F ather: alive, melanoma, prostate, diagnosed with Cancer, Diabetes, Hypertension. M other: alive, diagnosed with Hypertension, Heart Disease, Cancer. P aternal Grand Father: . Paternal Grand Mother: . M aternal Grand Father: . M aternal Grand Mother: . S ibdaniel: alive, 1 sister ; mvaBailey whitfield: alive. 1 brother(s) , 1 sister(s) - [...] 1 TAB(S) ORALLY ONCE A DAY , Taking Jardiance 10 MG Tablet 1 tab(s) [...] TAB(S) ORALLY 2 TIMES A DAY , Taking hydroCHLOROthiazide 25 MG Tablet 1 tab(s) orally every other day , Taking hydrOXYzine HCl 25 MG Tablet 1 tab(s) orally 2 times a day , Taking Metoprolol Succinate ER 100 MG Tablet Extended Release 24 Hour TAKE 1 AND 1/2 TABLET BY MOUTH TWICE DAILY , Taking Gabapentin 300 MG Capsule 1 cap(s) orally 2 times a day , Taking Eliquis 5 mg Tablet TAKE ONE TABLET BY MOUTH TWICE DAILY , Discontinued amLODIPine Besylate 5 MG Tablet 1 tab(s) orally once a day , Medication List reviewed and reconciled with the patient * Allergies: C odeine, HYDROcodone: itchy and nausea, Statins: couldnt walk. Objective: * Vitals: N urse: jl, Pain: 0, Temp: 95, RR: 18, HR: 94, BP: 130/82, Ht: 64, Wt: 154, BMI:26.43. * Examination: G eneral Examination: General P leasant and Cooperative, NAD on RA,. Chest: n ormal shape and expansion. Heart: R egular Rate and Rhythm, no murmur, rubs or gallops. Lungs: L CTAB, No wheezes, crackles or rhonchi, Good air movement,. Abdomen: S oft, NTND, BSNA, No organomegaly or peritoneal signs.. Skin: w ithout acute rashes. Peripheral pulses: n ormal (2+) bilaterally. Extremities: l eft heal healing ulcer present. no signs of infection, previous mid MT amputation noted. Psych N ormal Mood/Affect. Assessment: * Assessment: 1. C oronary artery disease involving [place] coronary artery of [place] heart without angina pectoris - I25.10 (Primary) 2 . R outine medical exam - Z00.00 3 .?Gastroesophageal reflux disease without esophagitis - K21.9 4 . C hronic systolic heart failure - I50.22 5 . P eripheral arterial disease - I73.9 ? 6 . P aroxysmal atrial fibrillation - I48.0 7 . H yperlipemia - E78.5? 8. E ssential hypertension - I10 9 . H istory of tobacco use - Z87.891 1 0. M edically noncompliant - Z91.199 1 1. E ncounter for immunization - Z23 1 2. V isit for screening mammogram - Z12.31 Plan: * Treatment: 2. R outine medical exam L AB: M-Comprehensive Metabolic Panel (Collection Date & Time - 06/19/2025 11:37 AM) Value Reference Range S odium 140 136-145 - mmol/L * P otassium 3.9 3.5-5.1 - mmoL/L * C hloride 104 98-107 - mmol/L * C arbon Dioxide 24 22.0-30.0 - mmol/L * A nion Gap 15.9 H 5-15 - mEq/L * B lood Urea Nitrogen 15 7-17 - mg/dl * C reatinine,Serum 0.80 0.52-1.04 - mg/dl * G FR () 89 >60 - ML/MIN * E stimated Glomerular Filt Rate 73 >60 - ml/m in * G lucose 109 H 74-100 - mg/dl * C alcium 9.4 8.4-10.2 - mg/dl * B ilirubin,Total 0.7 0.2-1.3 - mg/dl * A spartate Amino Transferase 30 14-36 - U/L * A lanine Aminotransferase 22 12-78 - U/L * T otal Protein,Serum 7.0 6.3-8.2 - g/dl * A lbumin Level 4.5 3.5-5.0 - g/dl * G lobulin 2.5 1.3-3.2 - g/dL * A lbumin/Globulin Ratio 1.8 1.1-1.8 - * A lkaline Phosphatase 79 38-126 - U/L * Sarah Wing 06/20/20 07:36:33 AM EDT > triglycerides are very high, over double last year, did she have anything to eat or drink after midnight? if so that could explain it. sugar a little high, add A1c, otherwise labs look okay Krissy Sigala 06/20/2025 11:20:15 AM EDT > pt informed-she had something to eat and drink around 11:30 pm, the night before labs.This lab was reviewed by Krissy Sigala on 06/20/2025 at 11:23 AM EDT ?LAB: M-Lipid Panel (Collection Date & Time - 06/19/2025 11:37 AM)* Value Reference Range T riglycerides 712 H 30-150 - mg/dl * C holesterol 220 H 140-200 - mg/dl * L DL Cholesterol 69.42 L 100-129 - mg/dL * H DL Cholesterol 35 L 40-60 - mg/dl * C hol/HDL Ratio 6.3 H 1-3.5 - * Sarah Wing 06/20/20 07:36:33 AM EDT > triglycerides are very high, over double last year, did she have anything to eat or drink after midnight? if so that could explain it. sugar a little high, add A1c, otherwise labs look okay JovonKrissy Jeremi 06/20/2025 11:20:15 AM EDT > pt informed-she had something to eat and drink around 11:30 pm, the night before labs.This lab was reviewed by Krissy Sigala on 06/20/2025 at 11:23 AM EDT Notes: Order provided for fasting labs Needs cologuard, has at home Pt was advised to reach out if she has not been scheduled for her imaging follow-up based on her mammogram and breast ultrasound findings by August 27. flu shot given??3.?Gastroesophageal reflux disease without esophagitis? Notes: Well controlled on PPI, continue therapy. ??4.?Chronic systolic heart failure? Notes: Euvolemic today on exam, no current concerns or changes made today. Told to continue f/u with Cardiology. ??5.?Peripheral arterial disease? Notes: Risk factor modification, refrain from smoking maximize LDL, blood pressure control. Keep FUwith vascular surgery and podiatry. ??6.?Paroxysmal atrial fibrillation?LAB: M-Complete Blood Count Auto Diff (Collection Date & Time - 06/19/2025 11:37 AM)* Value Reference Range W eliana Blood Count 6.3 4.8-10.8 - K/mm3 * R ed Blood Count 4.70 4.20-5.40 - M/mm3 * H emoglobin 14.0 12.2-16.2 - g/dL * H ematocrit 41.8 37.0-47.0 - % * M samanta Corpuscular Volume 88.9 81-99 - fl * M samanta Corpuscular Hemoglobin 29.8 27.0-31.2 - p g * M samanta Corpuscular HGB Conc 33.5 31.8-35.4 - g/d L * R ed Cell Distribution Width 13.6 11.5-17.5 - % * P latelet Count 241 142-424 - K/mm3 * M samanta Platelet Volume 9.8 7.4-10.4 - fl * N eutrophils % 64.5 37.0-80.0 - % * L ymphocytes % 25.8 10-50 - % * M onocytes % 6.7 1.7-9.3 - % * E osinophils % 2.2 0.1-12.0 - % * B asophils % 0.5 0.1-2.0 - % * N eutrophils # 4.1 1.8-7.8 - K/mm3 * L ymphocytes # 1.6 0.7-4.5 - K/mm3 * M onocytes # 0.4 0.1-1.0 - K/mm3 * E osinophils # 0.1 0.0-0.4 - Kmm3 * B asophils # 0.0 0-0.2 - K/mm3 * Sarah Wing 06/20/20 07:36:33 AM EDT > triglycerides are very high, over double last year, did she have anything to eat or drink after midnight? if so that could explain it. sugar a little high, add A1c, otherwise labs look okay Krissy Sigala Jeremi 06/20/2025 11:20:15 AM EDT > pt informed-she had something to eat and drink around 11:30 pm, the night before labs. Sarah Wing 06/20/2025 02:44:46 PM EDT > a1c normal Krissy Sigala Jeremi 06/20/2025 04:54:40 PM EDT > pt informedThis lab was reviewed by Krissy Sigala on 06/20/2025 at 16:54 PM EDT Notes: Rate well controlled. Eliquis for anticoagulation. No signs of excessive bleeding. Labs will be drawn today and reviewed personally to evaluate efficacy of current medication regimen.??7.?Hyperlipemia?LAB: M-Comprehensive Metabolic Panel (Collection Date & Time - 06/19/2025 11:37 AM)* Value Reference Range S odium 140 136-145 - mmol/L * P otassium 3.9 3.5-5.1 - mmoL/L * C hloride 104 98-107 - mmol/L * C arbon Dioxide 24 22.0-30.0 - mmol/L * A nion Gap 15.9 H 5-15 - mEq/L * B lood Urea Nitrogen 15 7-17 - mg/dl * C reatinine,Serum 0.80 0.52-1.04 - mg/dl * G FR () 89 >60 - ML/MIN * E stimated Glomerular Filt Rate 73 >60 - ml/m in * G lucose 109 H 74-100 - mg/dl * C alcium 9.4 8.4-10.2 - mg/dl * B ilirubin,Total 0.7 0.2-1.3 - mg/dl * A spartate Amino Transferase 30 14-36 - U/L * A lanine Aminotransferase 22 12-78 - U/L * T otal Protein,Serum 7.0 6.3-8.2 - g/dl * A lbumin Level 4.5 3.5-5.0 - g/dl * G lobulin 2.5 1.3-3.2 - g/dL * A lbumin/Globulin Ratio 1.8 1.1-1.8 - * A lkaline Phosphatase 79 38-126 - U/L * Sarah Wing 06/20/20 07:36:33 AM EDT > triglycerides are very high, over double last year, did she have anything to eat or drink after midnight? if so that could explain it. sugar a little high, add A1c, otherwise labs look okay Krissy Sigala 06/20/2025 11:20:15 AM EDT > pt informed-she had something to eat and drink around 11:30 pm, the night before labs.This lab was reviewed by Krissy Sigala on 06/20/2025 at 11:23 AM EDT ?LAB: M-Lipid Panel (Collection Date & Time - 06/19/2025 11:37 AM)* Value Reference Range T riglycerides 712 H 30-150 - mg/dl * C holesterol 220 H 140-200 - mg/dl * L DL Cholesterol 69.42 L 100-129 - mg/dL * H DL Cholesterol 35 L 40-60 - mg/dl * C hol/HDL Ratio 6.3 H 1-3.5 - * Sarah Wing 06/20/20 07:36:33 AM EDT > triglycerides are very high, over double last year, did she have anything to eat or drink after midnight? if so that could explain it. sugar a little high, add A1c, otherwise labs look okay Jovon Krissy Blood 06/20/2025 11:20:15 AM EDT > pt informed-she had something to eat and drink around 11:30 pm, the night before labs.This lab was reviewed by Krissy Sigala on 06/20/2025 at 11:23 AM EDT Notes: On repatha, tolerates well. Labs will be drawn today and reviewed personally to evaluate efficacy of current medication regimen.??8.?Essential hypertension? Notes: Blood pressure at goal, no changes made at this time. ??9.?History of tobacco use?Imaging: CT Scan : Chest, Lung Cancer Screening* Vijaya Gomez 06/19/2025 02: 22:48 PM EDT > No auth needed for CPT 98583 per Sarah Frances 07/02/2025 02:53:34 PM EDT > CT chest stable, repeat in 1 yearMarce Ramirez 07/02/2025 03:22:09 PM EDT > Patient informedThis DI was reviewed by Marce Ramirez on 07/02/2025 at 15:22 PM EDT * Notes: Pt reports smoking cessation status at this time. Pt was encouraged to continue. Need CT lung cancer screening, will arrange? Referral To: ?Reason:CT scan lung cancer screening 10.?Medically noncompliant? Notes: Pt explains she has been making an effort to be more compliant, pt was encouraged to continue her efforts and follow-up as needed. ??11.?Encounter for immunization? Notes: Flu shot administered and tolerated well. ??12.?Visit for screening mammogram?Imaging: Mammogram : Bilateral* * Immunizations: FLUCELVAX : 0.5 mL (Dose No:1) (Route: Intramuscular) given by JEAN Sam on Right Deltoid * Procedure Codes: 9 0661 FLUCELVAX, 23216 ADMINISTRATION IMMUNIZATION ONE VACCINE * Follow Up: 6 Months,prn * * Sign off status: Completed true * Provider: Jeremi Wing APRN Date: 0 06/19/2025 Generated for Zuleima crockett/Joe/Barbaraitting on: 1 03:03 PM EDT History and Physical Notes * HPI (History of Present Illness) Category Sub-Category Detail Notes Category Not es gen Gen 59yo female come s in for follow up. Since lat visit, pt had a heart cath and stent placed by Cardiology team. Pt explains she has not started Cardiac rehabilitation yet but she has been contacted by their office for scheduling. Pt explains labs have not been drawn since before her cath. Pt denies any chest pain, palpitations, dizziness, or headaches. Pt denies any new dyspnea on exertion and is able to perform her ADLs without significant difficulty. Pt reports comlpete smoking cessation since her last visit. Pt explains she has been doing well at avoiding smoking. 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 Pt is still seeing Vascular at [place] for monitoring. Pt explains she has one lesion on her left heel that is still in the process of healing. Pt explains the area has been healing well and she checks it and redresses it daily. Pt denies any new foot lesions or concerns. Pt is currently fasting and explains she was unable to return to have lab work when ordered at previous visits. Pt denies any changes to bowel or bladder habits. Pt reports she has not yet completed her Cologuard screening. Pt has no other concerns today. Examination Category Sub-Category Detail Notes Category Not es General Examination Heart: Regular Rate and Rhythm, no murmur, rubs or gallops Lungs: LCTAB, No wheezes, c rackles or rhonchi, Good air movement, Abdomen: Soft, NTND, BSNA, No organomegaly or peritoneal signs. Extremities: left heal healing ul cer present. no signs of infection, previous mid MT amputation noted Skin: without acute rashes Peripheral pulses: normal (2+) bilatera lly Chest: normal shape and exp ansion General Pleasant and Cooper[place] tive, NAD on RA, Psych Normal Mood/Affect Consultation Request Notes Referral Date Referring Provider Referred Provider Not es 06/19/2025 Sarah Wing , CT scan lung c ancer screening
--- OUTSIDE RECORDS SUMMARY | 2025-06-20 07:25 | XMS_ITS ---
Author Organization [facility] Address [address] [place] [address] Care Team Providers Care Coffee Farmer Name Role Phone William Hunter Primary Care Provider Sarah Wing Unavailable [phone] Encounters Encounter Location Date Provider Diagnosis [facility] [address] [place], [place] [address] 06/20/2025 Sarahjohanna Wing Hyperglycemia R73.9 Assessments Encounter Date Diagnosis (ICD Code) Assessment Notes Treatment Notes Treatment Clinical Notes Section Notes 06/20/2025 Hyperglycemia (ICD-10 - R73.9) Plan Of Treatment Pending Test Test Name Order Date M-Hemoglobin A1C 06/20/2025 Progress Notes * Oz GLEZIdaliaB:1965 (59 yo F)Acc No.[id number]:06/20/2025 Patient: Ashley NICOLE :1965 A ge:59 Y S ex:Female Address:[place], [address] Subjective: * Chief Complaints: * * Medical History: * Surgical History: * Hospitalization/Major Diagno stic Procedure: * Medications: Objective: * Vitals: * Physical Examination: Assessment: * Assessment: 1. H yperglycemia - R73.9 Plan: * Treatment: * Procedure Codes: * true * Date: Generated for Zuleima crockett/Joe/Farrukh on: 1 03:02 PM EDT
--- OUTSIDE RECORDS SUMMARY | 2025-06-25 14:34 | XMS_ITS | Encounter Summary ---
Author Organization [place] [address] Care Team Providers Care Sound Person Name Role Phone González Gotti MD Unavailable [phone] Cristi Cleaning MD Unavailable [phone] William Hunter MD Primary Care Provider [phone] Reason for Referral * In Office Procedure (Routine) - Pending Review Specialty Diagnoses / Procedures Referred By Contac t Referred To Contact Diagnoses Pressure ulcer of left heel, stage 4 (HCC) Procedures [place] DEBRIDEMENT SUBCUTANEOUS TISSUE 1ST 20 SQ CM/< Cristi Pelletier DPM [address] [place] [phone] Phone: tel: fax: Referral ID Status Reason Start Date Expiration Date V isits Requested Visits Authorized [id number] Pending Review 06/25/2025 06/25/2026 1 1 * (Routine) - Pending Review Specialty Diagnoses / Procedures Referred By Contac t Referred To Contact Diagnoses Pressure ulcer of left heel, stage 4 (HCC) Procedures [facility] Cristi Pelletier DPM [address] [address] Phone: tel: fax: Referral ID Status Reason Start Date Expiration Date V isits Requested Visits Authorized [id number] Pending Review 06/25/2025 06/25/2026 1 1 Reason for Visit * Reason Comments Wound Check * Consultation (Routine) - Authorization Not Needed Specialty Diagnoses / Procedures Referred By Brian t Referred To Contact Wound Care Diagnoses Wound Care Procedures NJ DEBRIDEMENT SUBCUTANEOUS TISSUE 1ST 20 SQ CM/< NJ DEBRIDEMENT MUSCLE &/FASCIA 1ST 20 SQ CM/< NJ DEBRIDEMENT BONE 1ST 20 SQ CM/< NJ DEBRIDEMENT SUBCUTANEOUS TISSUE EA ADDL 20 SQ CM NJ DEBRIDEMENT MUSCLE &/FASCIA EA ADDL 20 SQ CM NJ DEBRIDEMENT BONE EACH ADDITIONAL 20 SQ CM NJ DEBRIDEMENT OPEN WOUND FIRST 20 SQ CM/< [place] DEBRIDEMENT OPN WND EA ADDL 20 SQ CM/PRT THEREOF [facility] [address] [facility] [place] [address] Phone: tel: fax: Referral ID Status Reason Start Date Expiration Date Visits Requested Visits Authorized [id number] Authorization Not Needed Specialty Services Required 5 01/08/2026 99 99 Encounter Details Date Type Department Care Team (Latest Contact Info) Description 06/25/2025 2:34 PM EDT - 06/25/2025 11:59 PM EDT Hospital Encounter [facility] [address] [place] [address] Cristi Pelletier DPM [address] [phone] Pressure ulcer of left heel, stage 4 (HCC) (Primary Dx) Discharge Disposition: Home or Self Care Social History Tobacco Use Types Packs/Day Years Used Date Smoking Tobacco: Former Cigarettes 0.3 40 0 12/26/1981 - 12/26/2021 Passive Smoke Exposure: Past Smokeless Tobacco: Never Alcohol Use Standard Drinks/Week Comments Not Currently 0 (1 standard drink = 0.6 oz pur e alcohol) [facility] Utilities Answer Date Recorded In the past 12 months has [employer], gas, oil, or water company threatened to shut off services in your home? No 12/28/2024 Overall Financial Resource Strain (CARDIA) Answe r Date Recorded How hard is it for you to pa y for the very basics like food, housing, medical care, and heating? Not hard at all 12/28/2024 PHQ-2 Answer Date Recorded PHQ-2 Total Score 0 12/28/2024 [facility] - Occupational [...] things needed for daily living? No 05/29/2023 [facility] IP Transportation Answer D ate [...] Sign Reading Time Taken Comments Blood Pressure 102/66 06/25/2025 2:49 PM EDT Pulse 70 06/25/2025 2:49 PM EDT Temperature 36.2 C (97.2 F) 06/25/2025 2:49 PM EDT Respiratory Rate 18 06/25/2025 2:49 PM EDT Oxygen Saturation - - Inhaled [...] Assessment Author No 06/11/2023 2:58 PM EDT Krista Bates RN documented as of this encounter Mental Status * Because of a physical, mental or emotional condition, does this person have serious difficulty concentrating, remembering or making decisions? Answer Entry Date Author No 06/11/2023 2:58 PM EDRedd Prather RN documented in this encounter Medications at [...] days. fluticasone propionate (FLONASE) 50 mcg/actuation Nasl [place], Suspension 1 spay each nostril twice daily [...] EDT 06/11/2023 oxymetazoline (AFRIN) 0.05 % Nasl [place], Non-Aerosol 1 [place] by Nasal route as needed for Congestion (30 min. prior to HBO2-PRN, difficulty clearing ears.). 06/28/2023 documented as of this encounter Discharge Disposition Disposition Code Departure Means Destination Home or Self Care documented in this encounter Progress Notes * Cristi Pelletier DPM - 06/25/2025 2:45 PM EDT Date of Visit:06/25/2025 [id number] today Progress Note HPI Ashley Ding is a 59 y.o. year old female patient who presents today for wound evaluation and follow-up. Daily dressing change Patient denies any fever, chills, nausea or vomiting Improving Past Medical History: Diagnosis Date Anesthesia complication only with phenergan, alarming how long it takes her to wake up Asthma Bradycardia CAD (coronary artery disease) Cardiac pacemaker [facility] Dual PPM 11/05/2016 - Dr. Cleaning Chronic systolic heart failure ([facility]) COPD (chronic obstructive pulmonary disease) ([facility]) Depression with anxiety Emphysema, unspecified ([facility]) Essential hypertension Headache Heartburn History of cardiac cath 03/23/2017 Stent placed in Right leg 03/23/2017 HLD (hyperlipidemia) Hypertension AR (myocardial infarction) ([facility]) 06/2016 Pacemaker Post-operative nausea and vomiting Sinus node dysfunction ([facility]) [facility] Dual PPM 11/05/2016 - Dr. Cleaning STEMI (ST elevation myocardial infarction) ([facility]) STEMI with 3 NORI to RCA Systolic heart failure ([facility]) 02/2017 ECHO, EF 25% Past Surgical History: Procedure Laterality Date CARDIAC CATHETERIZATION Right 03/23/2017 stent placed in right leg CARDIAC PACEMAKER PLACEMENT 11/05/2016 [facility] Dual PPM COLONOSCOPY CORONARY ANGIOPLASTY WITH STENT PLACEMENT 06/2016 x3 DEBRIDEMENT Left 05/19/2023 .; Surgeon: Jabari Hill DPM; Location: [facility]; Service: Orthopedics FEMUR FRACTURE SURGERY Right right femur fx repair FOOT SURGERY FOOT SURGERY Left 12/23/2022 Left foot heel and second and third toe debridement with application of skin graft substitute. ; Surgeon: Jabari Hill DPM; Location: [facility]; Service: Orthopedics FOOT SURGERY Left 02/10/2023 Surgeon: Jabari Hill DPM; Location: [facility]; Service: Orthopedics FOOT SURGERY Left 06/06/2023 left FOOT TRANSMETATARSAL amputation; Surgeon: Jabari Hill DPM; Location: [facility]; Service: Podiatry HAMMER TOE SURGERY Left 06/15/2022 Left foot Correction of hammer toe deformity with arthroplasty second and third toe. Left foot Application of skin graft substitute.; Surgeon: Jabari Hill DPM; Location: [facility]; Service: Podiatry HIP [...] IR REVAS FEM POP ART UNILAT W LABORER SYRUP MACHINE 03/13/2022 IR REVAS FEM POP ART UNILAT W LABORER SYRUP MACHINE 03/13/2022 Kashif Wong MD [facility] IR IR REVAS FEM POP ART UNILAT W LABORER SYRUP MACHINE 06/02/2023 IR REVAS FEM POP ART UNILAT W LABORER SYRUP MACHINE 06/02/2023 Vishnu Penn MD [facility] IR IR REVAS FEM POP ART UNILAT W LABORER SYRUP MACHINE 12/28/2024 IR REVAS FEM POP ART UNILAT W LABORER SYRUP MACHINE 12/28/2024 Vishnu Penn MD [facility] IR IR [...] TRANSCATH ARTERIAL INFUSION THROMBOLYSIS INITIAL TREAT 12/27/2024 Vishun Penn MD [facility] IR IR ULTRASOUND GUIDED [...] 05/19/2023 .; Surgeon: Jabari Hill DPM; Location: [facility]; Service: Orthopedics SKIN GRAFT Left 06/15/2022 Surgeon: Jabari Hill DPM; Location: [facility]; Service: Podiatry SKIN GRAFT Left 12/23/2022 . ; Surgeon: Jabari Hill DPM; Location: [facility]; Service: Orthopedics SKIN GRAFT 02/10/2023 Surgeon: Jabari Hill DPM; Location: [facility]; Service: Orthopedics TOE AMPUTATION Left 02/10/2023 Left foot second toe amputation, Left foot excisional debridement with application of skin graft substitute; Surgeon: Jabari Hill DPM; Location: [facility]; Service: Orthopedics TOE AMPUTATION Left 05/19/2023 Left foot, amputation of third toe. Left foot, wound debridment application. Left foot, skin graft substitute. Left foot wound debridment closure.; Surgeon: Jabari Hill DPM; Location: [facility]; Service: Orthopedics Current [...] days. fluticasone propionate (FLONASE) 50 mcg/actuation Nasl [place], Suspension 1 spay each nostril twice daily [...] Chest pain. oxymetazoline (AFRIN) 0.05 % Nasl [place], Non-Aerosol 1 [place] by Nasal route as needed for Congestion [...] MEDICINE -- (Patient not taking: Reported on 06/25/2025) oxyCODONE-acetaminophen (PERCOCET) 5-325 mg Oral Tablet Take 1-2 Tablets by mouth every 4 hours as needed for Acute Pain (R52). (Patient not taking: Reported on 06/25/2025) 30 Tablet 0 No current facility-administered medications for this encounter. Allergies Allergen Reactions Atorvastatin Myalgia Ezetimibe Myalgia Rosuvastatin Myalgia Simvastatin Myalgia Vvpffbg-Oow-Dab Reductase Inhibitors Other (See Comments) Joint pain Codeine Itching nausea Hydrocodone Itching nausea Phenergan [Promethazine] Other (See Comments) Made legs restless And also very sleepy ROS See HPI for further details. Relevant review of systems otherwise negative. Physical Exam Vitals: 06/25/25 1449 BP: 102/66 Pulse: 70 Resp: 18 Temp: 97.2 ??F (36.2 ??C) TempSrc: Forehead Ulcer Progress and Procedure Please refer to the LDA for details of ulcer progress and procedure. Ulcer evaluated left heel to subcutaneous tissue No gross evidence of infection No abscess or sinus formation No fluctuance No malodor No ascending cellulitis or lymphangitis No gross necrosis of wound edges or base Wound bed appears viable Assessment and Plan Ashley was seen today for wound check. Diagnoses and all orders for this visit: Pressure ulcer of left heel, stage 4 (HCC) - AMB [facility] - [place] DEBRIDEMENT SUBCUTANEOUS TISSUE 1ST 20 SQ CM/< [...] of pain. No adverse events. Daily dressing Discussed the necessity of offloading the affected [...] Patient Instructions - Balbina Tong RN - 06/25/2025 2:45 PM EDT HOME-CARE INSTRUCTIONS FOLLOWING YOUR [...] other day. 03/26 [facility] [place] has been contacted to obtain your wound [...] feel free to reach out to our director community organization, Hanna Riggs at [phone] for any discussion. WHO TO CALL FOR [...] immediate concern, press option #1. Office numbers: [phone] [place] [phone] M[place]- [phone] Our offices do not have an on-call provider. If you have emergent needs after hours please contact your primary care provider. You may also utilize the [facility] Nurse NOW Helpline: 8-040-5XIW-NOW for after-hours needs to get in contact with a nurse for assistance. Follow Up Instructions Check wound and surrounding [...] feel free to reach out to our director community organization, Hanna Riggs at [phone] for any discussion. documented in this encounter Plan of Treatment Upcoming Encounters Date Type Department Care Team (Late st Contact Info) Description 07/30/2025 12:45 PM EST Appointment [facility] [place] [address] [place] [address] Cristi Pelletier, DPM [address] [phone] 11/12/2025 1:30 PM EST Appointment [facility] [address] [place] [address] [address] [place] [address] Nette Jalloh APRN [address] [place] [address] [address] [place] [address] 11/12/2025 2:40 PM EST Office Visit [facility] [address] [place] [address] [address] [place] [address] Nette Jalloh [address] [place], [place] [id number] Scheduled Orders Name Type Priority Associated Diagnoses Orde r Schedule NJ DEBRIDEMENT SUBCUTANEOUS TISSUE 1ST 20 SQ CM/< NJ Charge Routine Pressure ulcer of left heel, stage 4 (HCC) Ordered: 06/25/2025 documented as of this encounter Goals Goal [...] % ointment Topical, ONCE, 1 dose, On 06/25/25 at 1500, Application site: FOOT Given 06/25/2025 2:57 PM EDT documented in this encounter Orders Medications Ordered That Daniel ht Not Have Been Administered Count Last Ordered Date First Ordered Date lidocaine (XYLOCAINE) 5 % ointment 1 2024 Nursing Count Last Ordered Date First Orde red Date AMB [facility] 06/25/2025 documented in this encounter Care Teams Sound Person Relationship Specialty Start Date End Date William Hunter MD [address] [place] [address] [place] [phone] PCP - General Internal Medicine-Adolescent Medicine 05/28/23 González Gotti MD [address] [place] [address] [place] [id number] Consulting Physician Internal Medicine - Clinical Cardiac Electrophysiology 04/05/17 Cristi Cleaning MD [address] [place] [address] [place] [id number] Physician Internal Medicine-Cardiovascular Disease 04/05/17 documented as of this encounter
--- OUTSIDE RECORDS SUMMARY | 2025-06-29 10:40 | XMS_ITS ---
Author Organization [facility] Address [address] [place] [address] Care Team Providers Care Transportation Department Supervisor Name Role Phone William Hunter Primary Care Provider Sarah Wing Unavailable [phone] REASON FOR VISIT ultrasound order Encounters Encounter Location Date Provider Diagnosis [facility] [address] [place] [address] 06/29/2025 William Hunter Abnormal ultrasound of breast R92.8 and Abnormal mammogram R92.8 Assessments Encounter Date Diagnosis (ICD Code) Assessment Notes Treatment Notes Treatment Clinical Notes Section Notes 06/29/2025 Abnormal ultrasound of breast (ICD-10 - R92.8) 06/29/2025 Abnormal mammogram (ICD-10 - R92.8) Plan Of Treatment Pending Test Test Name Order Date Ultrasound : Breast, Left 06/29/2025 Progress Notes * Oz GLEZIdaliaB:1965 (59 yo F)Acc No.[id number]:06/29/2025 Patient: Ashley NICOLE :1965 A ge:59 Y S ex:Female Address:[place], [address] Subjective: * Chief Complaints: * U ltrasound order * Medical History: * Surgical History: * Hospitalization/Major Diagno stic Procedure: * Medications: Objective: * Vitals: * Physical Examination: Assessment: * Assessment: 1. A bnormal ultrasound of breast - R92.8 2 . A bnormal mammogram - R92.8? Plan: * Treatment: * 2.?Abnormal mammogram?Imaging: Ultrasound : Breast, Left* JasonVijaya 06/29/2025 02: 41:08 PM EDT > No Auth required * * Procedure Codes: * true * Date: Generated for Zuleima crockett/Joe/Jannettesmitting on: 03:03 PM EDT
--- OUTSIDE RECORDS SUMMARY | 2025-07-10 08:30 | XMS_ITS ---
Author Organization [facility] PE D RENEE Address [address] [facility] [address] [place] [address] Care Team Providers Care Affiliate Marketing Specialist Name Role Phone William Hunter Primary Care Provider Sarah Wing Unavailable [phone] Allergies Allergen (clinical drug ingredient) Drug/Non Drug Allergy documented on EMR Reaction Allergy Type Onset Date Status Substance with 9-bblorbe-6-methylg lutaryl-coenzyme A reductase inhibitor mechanism of action (substance) Statins couldnt walk Drug Allergy Active codeine Codeine Unknown Drug Allergy Active hydrocodone HYDROcodone itchy and nausea Drug Allergy Active Reason For Referral Reason CT adrenal mass prot ocol Diagnosis 1 Adrenal mass (E27.8) Referral Organization [facility] DRE HARTMAN Referring Provider First Name Sarah Referring Provider Last Name Mecca Referring Provider Speciality Family Pra ctice Referred Organization [facility] Referred Address [address] [facility],[address] Referred Provider Specialty Diagnostic R adiology General Notes Vijaya Gomez 2024 10:57:46 AM >Pending precert with [employer] Service order [id number] Nickie 07/17/2025 12:11:26 PM >CPT [id number] shaffer 07/11/2025 03:53:40 PM EDT > Auth [id number] 07/11/25-09/09/25 [facility] Referral Priority Routine REASON FOR VISIT Med [...] W/U Status Risk Notes Problem Primary insomnia (4244914) Primary insomnia (F51.01) Active confirmed Problem Adrenal mass (873443461) Adrenal mass (E27.8) Active confirmed Problem Mixed hyperlipidemia (319440783) Mixed hyperlipidemia (E78.2) Active confirmed Vital Signs Temperature 97.6 degrees Fahrenheit 07/10/20 25 Blood pressure systolic 134 mm Hg 07/10/20 25 Blood pressure diastolic 82 mm Hg 025 Heart Rate 92 /min 07/10/2025 Height 64 in 07/10/2025 Weight 154.8 lbs 07/10/2025 BMI 26.57 kg/m2 07/10/2025 Encounters Encounter Location Date Provider Diagnosis [facility] [address] [place] [address] 07/10/2025 Sarah Mecca Primary insomnia F51 .01 [...] fast Pending Test Test Name Order Date CT Scan : Adrenal with and without 07/10 LIPID PANEL, STANDARD (7600) 07/10/2025 ALDOSTERONE/PLASMA RENIN ACTIVITY RATIO, LC/MS/MS (28048) 07/10/2025 CORTISOL, A.M. (4212) 07/10/2025 TESTOSTERONE, TOTAL, MS ([id number]) 2024 Referrals Referral Date Details 07/10/2025 07/10/2025, CT adren al mass protocol, [address] [facility], [place], [address], Next Appt Details Follow Up: pending CT, Reaso n: Progress Notes * Ulisses GLEZ:1965 (59 yo F)Acc No.[id number]:07/10/2025 Progress Notes Patient: Ashley NICOLE Provider: Jeremi Wing, DWAYNE :1965 A ge:59 Y S ex:Female Date:07/10/2025 Address:[id number] Pcp:William Hunter Subjective: * Chief Complaints: * [...] Procedure: M I 06/2016, chest pain 2006, [facility]- defibrillator shock, foot infection 12/2021, [place] 05/2023, [facility]- blood cot 12/2024. * Family History: F [...] Objective: * Vitals: N urse: jl, Pain: 1, Temp: 97.6, RR: 18, [...] mass L AB: ALDOSTERONE/PLASMA RENIN ACTIVITY RATIO,LC/MS/MS (06494) L AB: CORTISOL, A.M. (4212) L AB: TESTOSTERONE, TOTAL, MS ([id number]) I maging: CT Scan : Adrenal with and without Notes: CT chest with incidental adrenal masses bilaterally, likely adenomas but not completed imaged, will obtain additional images and labs to further evaluate? Referral To: ?Reason:CT adrenal mass protocol 3.?Mixed hyperlipidemia?LAB: LIPID PANEL, STANDARD (7600) Notes: Repeat lipid panel with extended fast?? * Follow Up: p ending CT * * Sign off status: Completed true * Provider: Jeremi Wing APRN Date: Generated for Zuleima crockett/Joe/eTransmitting on: 1 03:02 PM EDT History and Physical Notes * [...]
--- OUTSIDE RECORDS SUMMARY | 2025-07-16 13:00 | XMS_ITS | Encounter Summary ---
Author [place] [address] Care Team Providers Care Fabrication Operator Name Role Phone González Gotti MD Unavailable [phone] Cristi Cleaning MD Unavailable [phone] William Hunter MD Primary Care Provider [phone] Reason for Referral * In Office Procedure (Routine) - Pending Review Specialty Diagnoses / Procedures Referred By Contherlinda t Referred To Contact Diagnoses Pressure ulcer of left heel, stage 4 (HCC) Procedures [place] DEBRIDEMENT SUBCUTANEOUS TISSUE 1ST 20 SQ CM/< Cristi Pelletier DPM [address] [address] Phone: tel: fax: Referral ID Status Reason Start Date Expiration Date V isits Requested Visits Authorized [id number] Pending Review 07/16/2025 07/16/2026 1 1 * Vascular Imaging (Urgent) - Closed Specialty Diagnoses / Procedures Referred By Contherlinda t Referred To Contact Radiology Diagnoses 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) Pressure ulcer of left heel, stage 4 (HCC) Procedures [facility] LOWER EXTREMITY ARTERIAL DUPLEX COMPLETE Cristi Pelletier DPM [facility] [facility] [address] [place] [address] Phone: tel: fax: Referral ID Status Reason Start Date Expiration Date Visits Re quested Visits Authorized [id number] Closed 07/16/2025 07/17/2027 1 1 * (Routine) - Pending Review Specialty Diagnoses / Procedures Referred By Contac t Referred To Contact Diagnoses Pressure ulcer of left heel, stage 4 (HCC) Procedures [facility] PRIMARY DRESSING Cristi Pelletier DPM [address] [address] Phone: tel: fax: Referral ID Status Reason Start Date Expiration Date V isits Requested Visits Authorized [id number] Pending Review 07/16/2025 07/16/2026 1 1 Reason for Visit * Reason Comments Wound Check * Consultation (Routine) - Authorization Not Needed Specialty Diagnoses / Procedures Referred By Contac t Referred To Contact Wound Care Diagnoses Wound Care Procedures FL DEBRIDEMENT SUBCUTANEOUS TISSUE 1ST 20 SQ CM/< FL DEBRIDEMENT MUSCLE &/FASCIA 1ST 20 SQ CM/< FL DEBRIDEMENT BONE 1ST 20 SQ CM/< FL DEBRIDEMENT SUBCUTANEOUS TISSUE EA ADDL 20 SQ CM FL DEBRIDEMENT MUSCLE &/FASCIA EA ADDL 20 SQ CM FL DEBRIDEMENT BONE EACH ADDITIONAL 20 SQ CM FL DEBRIDEMENT OPEN WOUND FIRST 20 SQ CM/< FL DEBRIDEMENT OPN WND EA ADDL 20 SQ CM/PRT THEREOF [facility] [place] [address] [place] [address] Phone: tel: fax: Referral ID Status Reason Start Date Expiration Date Visits Requested Visits Authorized [id number] Authorization Not Needed Specialty Services Required 5 01/08/2026 99 99 Encounter Details Date Type Department Care Team (Latest Contact Info) Description 07/16/2025 1:00 PM EDT - 07/16/2025 11:59 PM EDT Hospital Encounter [facility] [place] [address] [place] [address] Cristi Pelletier DPM [address] [place] [address] Atherosclerosis of artery of extremity with [...] Date Recorded PHQ-2 Total Score 0 12/28/2024 [facility] [place] of Occupat ional Health - Occupational Stress [...] needed for daily living? No 05/29/2023 [facility] IP Transportation Answer D ate Recorded [...] FINISH ALL MEDICINE -- 12/05/2024 evolocumab (REPATHA SURECLICK) 140 mg/mL SubQ Pen Injector Subcutaneous (Inject under the skin) 140 mg every 14 days. fluticasone propionate (FLONASE) 50 mcg/actuation Nasl [place], Suspension 1 spay each nostril twice daily [...] EDT 06/11/2023 oxymetazoline (AFRIN) 0.05 % Nasl [place], Non-Aerosol 1 [place] by Nasal route as needed for Congestion [...] artery disease) Cardiac pacemaker [facility] Dual PPM 11/05/2016 - Dr. Cleaning Chronic systolic heart failure (HCC) COPD (chronic obstructive pulmonary disease) (HCC) Depression with anxiety Emphysema, unspecified (HCC) Essential hypertension Headache Heartburn History of cardiac cath 03/23/2017 Stent placed in Right leg 03/23/2017 HLD (hyperlipidemia) Hypertension NE (myocardial infarction) (HCC) 06/2016 Pacemaker Post-operative nausea [...] 05/19/2023 .; Surgeon: Jabari Hill DPM; Location: [facility]; Service: Orthopedics FEMUR FRACTURE SURGERY Right right femur fx repair FOOT SURGERY FOOT SURGERY Left 12/23/2022 Left foot heel and second and third toe debridement with application of skin graft substitute. ; Surgeon: Jabari Hill DPM; Location: [facility]; Service: Orthopedics FOOT SURGERY Left 02/10/2023 Surgeon: Jabari Hill DPM; Location: [facility]; Service: Orthopedics FOOT SURGERY Left 06/06/2023 left FOOT TRANSMETATARSAL amputation; Surgeon: Jabari Hill DPM; Location: [facility] MAIN OR; Service: Podiatry HAMMER TOE SURGERY Left 06/15/2022 Left foot Correction of hammer toe deformity with arthroplasty second and third toe. Left foot Application of skin graft substitute.; Surgeon: Jabari Hill DPM; Location: [facility]; Service: Podiatry HIP [...] IR REVAS FEM POP ART UNILAT W OCCUPATIONAL THERAPY AIDES TEACHER 03/13/2022 IR REVAS FEM POP ART UNILAT W OCCUPATIONAL THERAPY AIDES TEACHER 03/13/2022 Kashif Wong MD [facility] IR IR REVAS FEM POP ART UNILAT W OCCUPATIONAL THERAPY AIDES TEACHER 06/02/2023 IR REVAS FEM POP ART UNILAT W OCCUPATIONAL THERAPY AIDES TEACHER 06/02/2023 Vishnu Penn MD [facility] IR IR REVAS FEM POP ART UNILAT W OCCUPATIONAL THERAPY AIDES TEACHER 12/28/2024 IR REVAS FEM POP ART UNILAT W OCCUPATIONAL THERAPY AIDES TEACHER 12/28/2024 Vishnu Penn MD EDG IR [...] 05/19/2023 .; Surgeon: Jabari Hill DPM; Location: [facility]; Service: Orthopedics SKIN GRAFT Left 06/15/2022 Surgeon: Jabari Hill DPM; Location: [facility]; Service: Podiatry SKIN GRAFT Left 12/23/2022 . ; Surgeon: Jabari Hill DPM; Location: [facility]; Service: Orthopedics SKIN GRAFT 02/10/2023 Surgeon: Jabari Hill DPM; Location: [facility]; Service: Orthopedics TOE AMPUTATION Left 02/10/2023 Left foot second toe amputation, Left foot excisional debridement with application of skin graft substitute; Surgeon: Jabari Hill DPM; Location: [facility]; Service: Orthopedics TOE AMPUTATION Left 05/19/2023 Left foot, amputation of third toe. Left foot, wound debridment application. Left foot, skin graft substitute. Left foot wound debridment closure.; Surgeon: Jabari Hill DPM; Location: [facility]; Service: Orthopedics Current [...] days. fluticasone propionate (FLONASE) 50 mcg/actuation Nasl [place], Suspension 1 spay each nostril twice daily [...] Chest pain. oxymetazoline (AFRIN) 0.05 % Nasl [place], Non-Aerosol 1 [place] by Nasal route as needed for Congestion [...] Myalgia Ezetimibe Myalgia Rosuvastatin Myalgia Simvastatin Myalgia Bizyqjf-Ocf-Bqr Reductase Inhibitors Other (See Comments) Joint pain [...] artery of extremity with ulceration (HCC) - [place] [facility] LOWER EXTREMITY ARTERIAL DUPLEX COMPLETE; Future Pressure ulcer of left heel, stage 4 (HCC) - [facility] - [place] [facility] LOWER EXTREMITY ARTERIAL DUPLEX COMPLETE; Future - FL DEBRIDEMENT SUBCUTANEOUS TISSUE 1ST 20 SQ CM/< [...] get these scheduled. Please call central scheduling [phone] or [phone] as soon as possible to get these scheduled. They can be completed at any of the [facility] facilities. Left heel- collagen, adaptic overlay, 4x4, roll gauze, every other day. 03/26 [facility] has been contacted to [...] free to reach out to our unit technician, Hanna Riggs at [phone] for any discussion. WHO TO CALL FOR PROBLEMS: Please call the OP wound care center with any problems or issues you may have after your visit or though the week. Each patient is assigned a case consultant who can assist with issues you may be having. Individual office numbers are listed below. Press 1 for immediate or schedule needs, press 2 for the nursing line. The nurse line is for non-emergent needs and will be answered within 24 hours duringbusiness days. If you have a more immediate concern, press option #1. Office numbers: [phone] Ft. ClaudioNxzytx-[phone] [facility] [phone] Our offices do not have an on-call provider. If you have emergent needs after hours please contact your primary care provider. You may also utilize the [facility] Nurse NOW Helpline: [phone] for after-hours needs to get in contact [...] free to reach out to our unit technician, Hanna Riggs at [phone] for any discussion. * Addendum Note - Rosmery Cotto RN - 07/16/2025 1:00 PM EDTEncounter addended by: Rosmery Cotto RN on: 07/17/2025 9:37 AM Actions taken: Flowsheet accepted, Charge Capture section accepted documented in this encounter Plan of Treatment Upcoming Encounters Date Type Department Care Team (Late st Contact Info) Description 07/30/2025 12:45 PM EST Appointment [facility] [place] [address] [facility] [place] [address] Cristi Pelletier, DPM [address] [address] 11/12/2025 1:30 PM EST Appointment [facility] [address] [place] [address] [address] [place] [address] [facility] [address] [place], [place] [id number] 11/12/2025 2:40 PM EST Office Visit [facility] [address] [facility] [address] [place] [address] [facility] [address] [place], [place] [id number] Scheduled Orders Name Type Priority Associated Diagnoses Orde r Schedule FL DEBRIDEMENT SUBCUTANEOUS TISSUE 1ST 20 SQ CM/< FL Charge Routine Pressure ulcer of left heel, [...] documented as of this encounter Results * [facility] LOWER EXTREMITY ARTERIAL DUPLEX COMPLETE (07/20/2025 3:40 [...] TBI due to the prior transmetatarsal amputation. Cristi Pelletier DPM IMG VASCULAR ORDERABLES Final Result documented in [...] 07/16/2025 documented in this encounter Care Teams Fabrication Operator Relationship Specialty Start Date End Date William Hunter MD [address] [place] [phone] PCP - General Internal Medicine-Adolescent Medicine 05/28/23 González Gotti MD [address] [place] [address] [place] [address] Consulting Physician Internal Medicine - Clinical Cardiac Electrophysiology 04/05/17 Cristi Cleaning MD [address] [place] [address] [place] [address] Physician Internal Medicine-Cardiovascular Disease 04/05/17 documented as of this encounter
--- OUTSIDE RECORDS SUMMARY | 2025-07-20 14:13 | XMS_ITS | Encounter Summary ---
Author Organization [place] [address] Care Team Providers Care Rn Clinical Trials Name Role Phone González Gotti MD Unavailable [phone] Cristi Cleaning MD Unavailable [phone] William Hunter MD Primary Care Provider [phone] Reason for Referral * Vascular Imaging (Urgent) - Closed Specialty Diagnoses / Procedures Referred By Brian villavicencio Referred To Contact Radiology Diagnoses 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) Pressure ulcer of left heel, stage 4 (HCC) Procedures [facility] LOWER EXTREMITY ARTERIAL DUPLEX COMPLETE Cristi Pelletier DPM [address] [address] Phone: tel: fax: Referral ID Status Reason Start Date Expiration Date Visits Re quested Visits Authorized [id number] Closed 07/16/2025 07/17/2027 1 1 Reason for Visit * Vascular Imaging (Urgent) - Closed Specialty Diagnoses / Procedures Referred By Brian villavicencio Referred To Contact Radiology Diagnoses 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) Pressure ulcer of left heel, stage 4 (HCC) Procedures [facility] LOWER EXTREMITY ARTERIAL DUPLEX COMPLETE Cristi Pelletier DPM [address] [address] Phone: tel: fax: Referral ID Status Reason Start Date Expiration Date Visits Re quested Visits Authorized [id number] Closed 07/16/2025 07/17/2027 1 1 Encounter Details Date Type Department Care Team (Latest Contact Info) Description 07/20/2025 2:13 PM EDT - 07/20/2025 11:59 PM EDT Hospital Encounter [facility] [address] [facility] [address] [place] [address] Cristi Pelletier, DPM [address] [facility] [address] [facility] [address] [place] [address] Atherosclerosis of artery of extremity [...] drink = 0.6 oz pur e alcohol) [facility] Utilities Answer Date Recorded In the [...] Date Recorded PHQ-2 Total Score 0 12/28/2024 [facility] [place] of Occupat ional Health - Occupational Stress [...] No 05/29/2023 [facility] IP Transportation Answer D ate Recorded [...] days. fluticasone propionate (FLONASE) 50 mcg/actuation Nasl [place], Suspension 1 spay each nostril twice daily [...] EDT 06/11/2023 oxymetazoline (AFRIN) 0.05 % Nasl [place], Non-Aerosol 1 [place] by Nasal route as needed for Congestion (30 min. prior to HBO2-PRN, difficulty clearing ears.). 06/28/2023 documented as of this encounter Discharge Disposition Disposition Code Departure Means Destination Home or Self Care documented in this encounter Plan of Treatment Upcoming Encounters Date Type Department Care Team (Late st Contact Info) Description 07/30/2025 12:45 PM EST Appointment [facility] [address] [place] [address] Cristi Pelletier, DPM [address] [address] 11/12/2025 1:30 PM EST Appointment [facility] [address] [place] [address] [address] [place] [address] Nette Jalloh APRN [address] [place] [address] [address] [place] [address] 11/12/2025 2:40 PM EST Office Visit [facility] [address] [place] [address] [address] [place] [address] Nette Jalloh, KIDNEY PULLER [address] [place] [address] DR GARZON MICHELLE, [place] [id number] documented as of this encounter Goals Goal [...] Procedure Name Priority Date/Time Associated Diagnosis Comments [facility] LOWER EXTREMITY ARTERIAL DUPLEX COMPLETE MAYITO 07/20/2025 3:40 PM EDT 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) Pressure ulcer of left heel, stage 4 (HCC) documented in this encounter Results * [facility] LOWER EXTREMITY ARTERIAL DUPLEX COMPLETE (07/20/2025 [...] (HCC) documented in this encounter Care Teams Rn Clinical Trials Relationship Specialty Start Date End Date William Hunter MD [address] [place] [address] [place] [address] PCP - General Internal Medicine-Adolescent Medicine 05/28/23 González Gotti MD [address] [place] [address] [place] [address] Consulting Physician Internal Medicine - Clinical Cardiac Electrophysiology 04/05/17 Cristi Cleaning MD [address] [place] [address] [place] [address] Physician Internal Medicine-Cardiovascular Disease 04/05/17 documented as of this encounter
[2025-07-23 14:57] LABS: Blood Urea Nitrogen 13 mg/dl (7-17); Creatinine,Serum 0.90 mg/dl (0.52-1.04); Estimated Glomerular Filt Rate 64 ml/min (>60); GFR (African American) 77 ML/MIN (>60)
--- OUTSIDE RECORDS SUMMARY | 2025-07-23 15:03 | XMS_ITS | Encounter Summary ---
Author Organization [place] [address] Care Team Providers Care Personal Development Mentor Name Role Phone González Gotti MD Unavailable [phone] Cristi Cleaning MD Unavailable [phone] William Hunter MD Primary Care Provider [phone] Encounter Details Date Type Department Care Team (Late st Contact Info) Description 07/23/2025 Results Follow-Up [facility] [place] [address] [place] [address] Road [address] [place] [address] Cristi Pelletier, DP [address] [facility] [address] [place] [address] [place] [address] [facility] LOWER EXTREMITY ARTERIAL DUPLEX COMPLETE Social History Tobacco Use Types Packs/Day Years Used Date Smoking Tobacco: Former Cigarettes 0.3 40 0 12/26/1981 - 12/26/2021 Passive Smoke Exposure: Past Smokeless Tobacco: Never Alcohol Use Standard Drinks/Week Comments Not Currently 0 (1 standard drink = 0.6 oz pur e alcohol) [facility] Utilities Answer Date Recorded In the past 12 months has [employer] electric, gas, oil, or water company threatened to shut off services in your home? No 12/28/2024 Overall Financial Resource Strain (CARDIA) Answe r Date Recorded How hard is it for you to pa y for the very basics like food, housing, medical care, and heating? Not hard at all 12/28/2024 PHQ-2 Answer Date Recorded PHQ-2 Total Score 0 12/28/2024 [facility]at ional [facility] - Occupational [...] things needed for daily living? No 05/29/2023 [facility] IP Transportation Answer D ate [...] 2:58 PM RACHELLT Redd Bates RN * Is the person [...] Redd Bates RN documented in this encounter Plan of Treatment Upcoming Encounters Date Type Department Care Team (Late st Contact Info) Description 07/30/2025 12:45 PM EST Appointment [facility] W[facility] Center [address] [place] [address] Cristi Pelletier, DPM [address] [address] 11/12/2025 1:30 PM EST Appointment [facility] [address] [place] [address] [address] [place] [address] [address] [address] 11/12/2025 2:40 PM EST Office Visit [facility] [address] [place] [address] [address] [place] [address] [address]oh [address] [facility] [address] [place] [address] documented as of this encounter [...] documented as of this encounter Visit Diagnoses Not on filedocumented in this encounter Care Teams Personal Development Mentor Relationship Specialty Start Date End Date William Hunter MD [address] [place] [address] [place] [id number] PCP - General Internal Medicine-Adolescent Medicine 05/28/23 González Gotti MD [address] [place] [address] [place] [address] Consulting Physician Internal Medicine - Clinical Cardiac Electrophysiology 04/05/17 Cristi Cleaning MD [address] [place] [address] [place] [address] Physician Internal Medicine-Cardiovascular Disease 04/05/17 documented as of this encounter
--- OUTSIDE RECORDS SUMMARY | 2025-07-23 15:03 | XMS_ITS | Clinical Summary ---
Author Organization Healthcare Address [address] [place] [address] Care Team Providers Care Examination Proctor Name Role Phone Fariha [place] APRN Primary Care Provider [phone] Social History Tobacco Use Types Packs/Day Years Used Date Smoking Tobacco: Never Assessed Comments Unknown Sex and Gender Information Value Date Recorded Sex Assigned at Not on file Legal Sex Female 7:27 PM EDT Gender Identity Not on file Sexual Orientation Not on file Plan of Treatment Not on file Care Teams Examination Proctor Relationship Specialty Start Date End Date Fariha [place] APRN [address] [place] [address] PCP - General 02/07/21
--- OUTSIDE RECORDS SUMMARY | 2025-07-23 15:03 | XMS_ITS | Encounter Summary ---
Author Organization Healthcare Address [address] [place] [address] Care Team Providers Care Lead Slot Technician Name Role Phone Fariha [place] APRN Primary Care Provider [phone] Encounter Details Date Type Department Care Team (Late st Contact Info) Description 02/18/2022 [facility] [address] [place] [address] Jabari Goetz MD [address] [facility] [address] [place] [address] PAD (peripheral artery disease) (CMS/HCC) [...] disease documented in this encounter Care Teams Lead Slot Technician Relationship Specialty Start Date End Date Fariha [place] APRN [address] [place] [address] PCP - General 02/07/21 documented as of this encounter
--- OUTSIDE RECORDS SUMMARY | 2025-07-23 15:03 | XMS_ITS | Clinical Summary ---
Author Organization [facility] Psychiatric Address [address] [facility] [address] [place] [phone] Phone Care Team Providers Care Cnc Operator Name Role Phone González Gotti MD Unavailable [phone] Cristi Cleaning MD Unavailable [phone] William Hunter MD Primary Care Provider [phone] Allergies Active Allergy Reactions Criticality Noted Date Comments Atorvastatin Myalgia High 07/01/2023 Codeine Itching Low nausea Ezetimibe Myalgia High 07/01/2023 Hydrocodone Itching Low nausea Promethazine Other (See Comments) Low 06/12/2022 Made legs restless And also very sleepy Rosuvastatin Myalgia High 07/01/2023 Simvastatin Myalgia High 07/01/2023 Ejyllbn-Wkc-Skd Reductase Inhibitors Other (See Comments) 01/02/2025 Joint [...] taking.Reason: Therapy Completed, Informant: Self/Patient, Reported on 07/16/2025 fluticasone propionate (FLONASE) 50 mcg/actuation Nasl [place], Suspension 1 spay each nostril twice daily 1 Each 3 3 Active oxymetazoline (AFRIN) 0.05 % Nasl [place], Non-Aerosol 1 [place] by Nasal route as needed for Congestion [...] original. 03/05/22 [facility] #[id number] (as expected) Kashif Wong MD Problem Noted [...] situ 12/07/2023 Insomnia 12/07/2023 Kidney stone 12/07/2023 retirement current use of anticoagulant therapy 0 12/07/2023 Neuropathy 12/07/2023 Non-pressure chronic ulcer o f skin of other sites with unspecified severity 12/07/2023 Palpitations 12/07/2023 Atrial fibrillation with rapid ventricular respo nse 12/07/2023 Seasonal allergic rhinitis 12/07/2023 Sinusitis 12/07/2023 Stented coronary artery 12/07/2023 Typical angina 12/07/2023 Ventricular fibrillation 12/07/2023 Ventricular fibrillation seen on manager monitoring 12/07/2023 Ventricular tachyarrhythmia 12/07/2023 Failed flap 06/28/2023 Skin flap necrosis 06/28/2023 Atherosclerosis of artery of extremity with ulce ration 06/02/2023 PAD (peripheral artery disease) 06/01/2023 S/P foot surgery 06/01/2023 Cellulitis of left lower extremity 05/28/2023 Open wound of left foot 04/26/2023 Overview (04/26/2023): Added automatically from request for surgery [id number] Hammertoe of left foot 06/08/2022 Overview (06/08/2022): Added automatically from request for surgery [id number] Pain in left foot 06/08/2022 Overview (06/08/2022): Added automatically from request for surgery [id number] Gangrene of left foot 06/08/2022 Overview (06/08/2022): Added automatically from request for surgery [id number] Vaping nicotine dependence, non-tobacco product 03/05/2022 COPD [...] (02/08/2023): Added automatically from request for surgery [id number] Osteomyelitis of second toe of left foot 02/05/2023 06/01/2023 Overview (02/05/2023): Added automatically from request for surgery [id number] Atherosclerosis of [place] bas[place] of left lower extremity with ulceration 09/07/2022 06/01/20 23 Atherosclerosis of [place] basia of left lower extremity with gangrene 03/05/2022 06/01/2023 RI (myocardial infarction) 06/27/2016 0 06/01/2023 STEMI (ST elevation myocardial infarction) 06/01/2023 Overview (04/05/2017): STEMI with 3 NORI to RCA Foot ulceration, left, with necrosis of muscle 04/07/2024 Chronic toe ulcer, left, wit h necrosis of bone 06/01/2023 Encounters Date Type Department Care Team Description 07/23/2025 Results Follow-Up [facility] [place] [address] [place] [id number] Cristi Pelletier DPM [facility] LOWER EXTREMITY ARTERIAL DUPLEX COMPLETE 07/20/2025 2:13 PM EDT - 07/20/2025 11:59 PM EDT Hospital Encounter [facility] VASCULAR [address] [place] [address] [address] [place] [address] Cristi Pelletier DPM 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); Pressure ulcer of left heel, stage 4 (HCC) Discharge Disposition: Home or Self Care 07/16/2025 1:00 PM EDT - 07/16/2025 11:59 PM EDT Hospital Encounter [facility] Wound Care Center [place] [address] [place] [address] Cristi Pelletier DPM 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) (Primary Dx); Pressure ulcer of left heel, stage 4 (HCC) Discharge Disposition: Home or Self Care 06/25/2025 2:34 PM EDT - 06/25/2025 11:59 PM EDT Hospital Encounter [facility] Wound Care Center [address] [place] [address] Cristi Pelletier, DPM Pressure ulcer of left heel, stage 4 (HCC) (Primary Dx) Discharge Disposition: Home or Self Care 06/11/2025 2:45 PM EDT - 06/11/2025 11:59 PM EDT Hospital Encounter [facility] Wound Care [facility] [address] [place] [address] Cristi Pelletier, DPM Pressure ulcer of left heel, stage 4 (HCC) (Primary Dx); 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) Discharge Disposition: Home or Self Care 06/04/2025 2:01 PM EDT - 06/04/2025 11:59 PM EDT Hospital Encounter [facility] Wound Care [place] [address] [place] [address] Cristi Pelletier, DPM Pressure ulcer of left heel, stage 4 (HCC) (Primary Dx) Discharge Disposition: Home or Self Care 05/14/2025 2:44 PM EDT - 05/14/2025 11:59 PM EDT Hospital Encounter [facility] Wound Care [place] [address] [place] [address] Cristi Pelletier, DPM Pressure ulcer of left heel, stage 4 (HCC) (Primary Dx); 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) Discharge Disposition: Home or Self Care 05/07/2025 1:45 PM EDT - 05/07/2025 11:59 PM EDT Hospital Encounter [facility] Wound Care [facility] [address] [place] [address] Cristi Pelletier, DPM Pressure ulcer of left heel, stage 4 (HCC) (Primary Dx) Discharge Disposition: Home or Self Care 04/23/2025 2:30 PM EDT - 04/23/2025 11:59 PM EDT Hospital Encounter [facility] Wound Care [facility] [address] [place] [address] Jabari Corado Jr., MD Pressure ulcer of [...] IR REVAS FEM POP ART UNILAT W ADVERTISING OPERATIONS COORDINATOR 03/13/2022 IR REVAS FEM POP ART UNILAT W ADVERTISING OPERATIONS COORDINATOR 03/13/2022 Kashif Wong MD [facility] COLONOSCOPY HAMMER TOE SURGERY 06/15/2022 Foot/Ankle/Left Left foot Correction of hammer toe deformity with arthroplasty second and third toe. Left foot Application of skin graft substitute.; Surgeon: Jabari Hill DPM; Location: [facility] MA[facility] OR; Service: Podiatry Medical devices from this surgery are in the Medical Devices section. SKIN GRAFT 06/15/2022 Left Surgeon: Jabari Hill DPM; Location: [facility]; Service: Podiatry Medical devices [...] 12/02/2022 IR ULTRASOUND GUIDED VASCULAR ACCESS 12/02/2022 Vishun Penn MD [facility] IR HIP SURGERY FOOT [...] 02/10/2023 Surgeon: Jabari Hill DPM; Location: [facility]; Service: Orthopedics Medical devices [...] DPM; Location: [facility]; Service: Podiatry Medical devices from [...] IR REVAS FEM POP ART UNILAT W ADVERTISING OPERATIONS COORDINATOR 06/02/2023 IR REVAS FEM POP ART UNILAT W ADVERTISING OPERATIONS COORDINATOR 06/02/2023 Vishnu Penn MD [facility] IR [...] IR REVAS FEM POP ART UNILAT W ADVERTISING OPERATIONS COORDINATOR 12/28/2024 IR REVAS FEM POP ART UNILAT W ADVERTISING OPERATIONS COORDINATOR 12/28/2024 Vishnu Penn MD [facility] IR [...] Stent pl aced in Right leg 03/23/2017 RI (myocardial infarction) ([facility]) 06/2016 Depression with anxiety Essential hypertension [...] 0.6 oz pur e alcohol) [facility] Utilities Answer Date Recorded In the past 12 months has e electric, gas, oil, or water [employer] threatened to shut off services in your home? No 12/28/2024 Overall Financial Resource Strain (CARDIA) Answe r Date Recorded How hard is it for you to pa y for the very basics like food, housing, medical care, and heating? Not hard at all 12/28/2024 PHQ-2 Answer Date Recorded PHQ-2 Total Score 0 12/28/2024 [facility] Occupat ional Health - Occupational Stress [...] things needed for daily living? No 05/29/2023 [facility] IP Transportation Answer [...] 18 07/16/2025 1:09 PM EDT Oxygen Saturation 96% 01/01/2025 2:00 [...] Appointment [facility] Wound Care Center [place] [address] [place] [place] [address] Cristi Pelletier, DPM [address] [facility] [address] [place] [address] 11/12/2025 1:30 PM EST Appointment [facility] [address] [place] [address] JanuaryNette APRN [address] [place] [address] [address] [place], [place] [id number] 11/12/2025 2:40 PM EST Office Visit [facility]urg [facility] [address] [facility] [address] [place] [address] JanuaryNette APRN [address] [place] [address] [address] [place] [address] Health Maintenance Due Date Last Done Comments Annual Wellness Exam 1968 Hepatitis C Screening 1983 Pneumococcal Vaccine 50+ (1 of 2 - PCV) 1984 Cervical Cancer Screening 1986 Pap Smear 1986 HPV/Pap Cotest 1995 Breast Cancer Screening 2005 Cologuard 2010 Colon Cancer Screening 2010 Colonoscopy 2010 FIT 2010 Sigmoidoscopy 2010 Virtual Colonography 2010 RSV or 60+ (1 - Risk 50-74 years 1-dose series) 2015 Zoster (1 of 2) 2015 DTaP/TDaP/Td (2 - Td or Tdap) 08/30/2024 08/30/2014, 06/21/1998 COVID-19 Vaccine ( season) 2025 04/08/2022, 08/27/2021, 01/08/2021, Additional history exists Influenza Vaccine Completed 06/19/2025, , 07/09/2021, Additional history exists Hepatitis B Vaccine Aged Out No longe r eligible based on patient's age to complete this topic Meningococcal B Vaccine Aged Out No l [...] tibial pulses. Medical Devices Implanted Type Area Site Controller Device Identifier Shelf Expiration Date Model / Serial / Lot Defib Graft Tissue Myriad Thin 5 X 5cm - [id number] Implanted:Qty: 1 on 06/15/2022 by Jabari Hill DPM at [facility] Left: Foot AROA [employer]OS[employer] 07/27/2022 [id number] US / / [id number] Wire Denise 0.439egy5.5in [facility] P[facility] - [id number] Implanted:Qty: 2 on 06/15/2022 by Jabari Hill DPM at [facility] Left: Foot MICROAIRE SURG INSTR 11/22/2025 [id number] / / [id number] Stent Enpros 8mm 7fr Intro 38mm 80cm Icast Trachbr Be Cvr-11/04/2022 Implanted:Qty: 1 on 11/04/2022 by Vishnu Penn MD Left: Iliac Artery GETINGE INDUSTIER:GETINGE [facility] [id number] / / [id number] Graft Tissue Myriad Thin 5 X 5cm - [id number] Implanted:Qty: 1 on 12/23/2022 by Jabari Hill, DPM at [facility] Left: Foot AROA BIOSURGERY 02/24/2025 [id number] US / / [id number] Graft Ovine Tissue 500mg Beatriz Morcells - [id number] Implanted:Qty: 1 on 12/23/2022 by Jabari Hill, DPM at [facility] Left: Foot AROA BIOSURGERY 07/27/2023 [id number] / / [id number] Graft Tissue Myriad Thin 5 X 5cm - [id number] Implanted:Qty: 1 on 02/10/2023 by Jabari Hill, DPM at [facility] Left: Heel AROA BIOSURGERY 03/26/2025 [id number] US / / [id number] Graft Tissue Myriad Thin 5 X 5cm - [id number] Implanted:Qty: 1 on 05/19/2023 by Jabari Hill, DPM at [facility] Left: Foot AROA [employer]OSURGERY 03/26/2025 [id number] US / / [id number] Graft Tissue Myriad Thin 5 X 5cm - [id number] Implanted:Qty: 1 on 06/06/2023 by Jabari Hill, DPM at [facility] Left: Heel AROA BIOSURGERY 02/24/2025 [id number] US / / [id number] Procedures Procedure Name Priority Date/Time Associated Diagnosis Comments [facility] LOWER EXTREMITY ARTERIAL DUPLEX COMPLETE [place] 07/20/2025 3:40 PM EDT 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) Pressure ulcer of left heel, stage 4 (HCC) from Last 3 Months Results * [facility] LOWER EXTREMITY ARTERIAL DUPLEX COMPLETE (07/20/2025 [...] due to the prior transmetatarsal amputation. Cristi ANGEL IMG VASCULAR ORDERABLES Final Result from Last 3 Months [facility] [place] [address] [facility] Great[facility] [place] [address] [facility] Great[place] [facility] [address] Advance Directives For more information, please contact: [phone] * Full Code (Latest Code Status on File) Date Activated Date Inactivated Comments 12/27/2024 10:43 PM 01/01/2025 9:14 PM * Full Code Date Activated Date Inactivated Comments 05/28/2023 10:35 AM 06/11/2023 9:55 PM Care Teams Cnc Operator Relationship Specialty Start Date End Date William Hunter MD [address] [place] [id number] PCP - General Internal Medicine-Adolescent Medicine 05/28/23 González Gotti MD [address] [place] [address] [address] [place] [address] Consulting Physician Internal Medicine - Clinical Cardiac Electrophysiology 04/05/17 Cristi Cleaning MD [address] [place] [address] [place] [address] Physician Internal Medicine-Cardiovascular Disease 04/05/17
--- OUTSIDE RECORDS SUMMARY | 2025-07-23 15:04 | XMS_ITS | Patient Health Record ---
Author Organization [facility] Address [address] [place] [address] Care Team Providers Care Spectrographer Name Role Phone William Hunter Primary Care Provider Sarah Wing Unavailable [phone] Migration, Provider Unavailable Unavailable Allergies Allergen (clinical drug ingredient) Drug/Non Drug Allergy documented on EMR Reaction Allergy Type Onset Date Status Substance with 9-vqudasf-1-methylg lutaryl-coenzyme A reductase inhibitor mechanism of action [...] date:07/02/2025 03:22:15 PM Interpretation: Performing Lab: Notes/Report: Mammogram : Bilateral Reviewed date:03/21/2025 09:46:46 AM Interpretation: Performing Lab: Notes/Report: M-Hemoglobin A1C Reviewed date:06/20/2025 04:54:54 PM Interpretation: Performing Lab: Notes/Report: HGBA1C 5.4 4.0-6.0 % < 6% Non-Diabetic Level < 7% Controlled Diabetic Level > 8% Poorly Controlled Diabetic Level Medications Medication SIG (Take, Route, Frequency, Duration) Notes Start Date End Date Status rOPINIRole HCl 0.25 MG 1 tab(s) orally a t bedtime Active Jardiance 10 MG 1 tab(s) orally once a day (in the morning) Active Gabapentin 300 MG 1 cap(s) orally 2 ti mes a day; Duration: 30 day(s) 03/05/2025 Active Aspirin 81 MG 1 TAB(S) ORALLY ONCE A DAY Active Metoprolol Succinate ER 100 MG TAKE 1 AND 1/2 TABLET BY MOUTH TWICE DAILY; Duration: 90 days Active hydroCHLOROthiazide 25 MG 1 tab(s) orall y every other day Active hydrOXYzine HCl 25 MG 1 tablet at bedtim e as needed Orally Once a day; Duration: 90 days 07/10/2025 Active RANEXA 1000 MG 1 TAB(S) ORALLY 2 TI MES A DAY Active Repatha 140 MG/ML subcutaneously every 2 weeks Active Isosorbide Mononitrate ER 12 0 MG 1 tab(s) orally once a day (in the morning) Active Magnesium Gluconate 250 MG 1 tab(s) oral ly once a day Active Plavix 75 MG 1 tab(s) orally once a day Active Pantoprazole Sodium 40 MG 1 tab(s) orall y once a day Active Nitroglycerin 0.4 MG 1 tab(s) sublingual ly every 5 minutes prn Active Eliquis 5 mg TAKE ONE TABLET BY MOUTH TWICE DAILY; Duration: 60 Active Immunizations Vaccine Route Administration Date Status Comme nts Influenza-Fluzone 3+years (NON-MEDICARE) IM Intramuscular 07/17/2016 Administered Influenza-Fluzone 3+years (NON-MEDICARE) IM Intramuscular 07/13/2017 Administered FLUCELVAX IM Intramuscular 06/19/2025 Administered Flublok IM Intramuscular 08/11/2022 Administered Social History Tobacco Use: Social History Observation Description Date Details (start date - stop date) Former Smoker NA - NA Smoking: Question Answer Notes Are you a: former smoker How long has it been since you last smoked? 6-12 months Problems Problem Type SNOMED Code ICD Code Onset Dates Problem Status W/U Status Risk Notes Problem Mixed hyperlipidemia (402700838) Mixed hyperlipidemia (E78.2) Active confirmed Problem Primary insomnia (3152707) Primary insomnia (F51.01) Active confirmed Problem Insomnia (596554271) Insomnia due to medical condition (G47.01) Active confirmed Problem Essential hypertension (13511770) Essential (primary) hypertension (I10) Active confirmed Problem Ventricular tachycardia (53167763) Ventricular tachycardia (I47.2) Active confirmed Problem Paroxysmal atrial fibrillation (239369700) Paroxysmal atrial fibrillation (I48.0) Active confirmed Problem Ventricular fibrillation (09964270) Ventricular fibrillation (I49.01) Active confirmed Problem Stricture of artery (80911195) Stricture of artery (I77.1) Active confirmed Problem Chronic ulcer of skin (34372569) Non-pressure chronic ulcer of skin of other sites with unspecified severity (L98.499) Active confirmed Problem Long-term current use of anticoagulant (924516382) MCC (current) use of anticoagulants (Z79.01) Active confirmed Problem Mixed anxiety and depressive disorder (637030468) Depression with anxiety (F41.8) Active confirmed Problem Neuropathy (066294976) Neuropathy (G62.9) Active confirmed Problem Essential hypertension (72025814) Essential hypertension (I10) Active confirmed Problem Hyperlipidaemia (62335893) Hyperlipemia (E78.5) Active confirmed Problem Atrial fibrillation (47951823) Atrial fibrillation (I48.91) Active confirmed Problem Gastroesophageal reflux disease without esophagitis (884110497) Gastroesophageal reflux disease without esophagitis (K21.9) Active confirmed Problem Atherosclerotic heart disease of grayling coronary artery without angina pectoris (383422905570460) Coronary artery disease involving grayling coronary artery of grayling heart without angina pectoris (I25.10) Active confirmed Problem COPD - Chronic obstructive pulmonary disease (59866547) Chronic obstructive pulmonary disease, unspecified COPD type (J44.9) Active confirmed Problem Chronic systolic heart failure (206496004) Chronic systolic heart failure (I50.22) Active confirmed Problem Chronic bronchiolitis (663910041) Chronic bronchiolitis (J44.9) Active confirmed Problem Peripheral arterial disease (144577055) Peripheral arterial disease (I73.9) Active confirmed Problem Kidney stone (56299424) Kidney stone (N20.0) Active confirmed Problem Generalized anxiety disorder (41926664) TRISH (generalized anxiety disorder) (F41.1) Active confirmed Problem Insomnia (086889508) Insomnia, unspecified type (G47.00) Active confirmed Problem Ventricular tachyarrhythmia (9140933) Ventricular tachyarrhythmia (I47.2) Active confirmed Problem Cardiac pacemaker in situ (019876121) History of pacemaker (Z95.0) Active confirmed Problem Atherosclerosis of coronary artery (103460950) Atherosclerosis of grayling coronary artery of grayling heart with other form of angina pectoris (I25.118) Active confirmed Problem Automatic implantable cardiac defibrillator in situ (950561812) Presence of automatic implantable cardioverter-defib rillator (Z95.810) Active confirmed Problem Mass of right adrenal gland (finding) (76436181659294334) Adrenal mass, right (E27.9) Active confirmed Problem Seasonal allergic rhinitis (285598036) Seasonal allergic rhinitis, unspecified allergic rhinitis trigger (J30.2) Active confirmed Problem Old myocardial infarction (9274847) History of ST elevation myocardial infarction (STEMI) (I25.2) Active confirmed Problem Automatic implantable cardiac defibrillator in situ (621322100) Presence of combination internal cardiac defibrillator (ICD) and pacemaker (Z95.810) Active confirmed Problem Arterial leg ulc er (L97.909) Active confirmed Problem Chronic obstructive pulmonary disease (60923961) Advanced COPD (J44.9) Active confirmed Problem Betaxolol allergy (098525751) Betaxolol allergy (Z88.8) Active confirmed Problem Adrenal mass (655824117) Adrenal mass (E27.8) Active confirmed Problem Hypertensive heart failure (29761868) Unspecified hypertensive heart disease with heart failure (I11.0) Active confirmed Vital Signs Heart Rate 92 /min 07/10/2025 Temperature 97.6 degrees Fahrenheit 07/10/2025 Blood pressure diastolic 82 mm Hg 07/10/2025 Height 64 in 07/10/2025 Blood pressure systolic 134 mm Hg 07/10/2025 Weight 154.8 lbs 07/10/2025 BMI 26.57 kg/m2 07/10/2025 Encounters Encounter Location Date Provider Diagnosis [facility] [address] [facility] [address] [place] [address] 12/30/2024 Provider Migration [facility] [address] [facility] [address] [place] [address] 07/23/2025 Sarah Geries [facility] [address] [facility] [address] [place], [place] [address] 02/27/2025 Sarah McZoraida Routine medical exam Z00.00 ; Coronary artery disease involving grayling coronary artery of grayling heart without angina pectoris I25.10 ; Gastroesophageal reflux disease without esophagitis K21.9 ; Chronic systolic heart failure I50.22 ; Peripheral arterial disease I73.9 ; Paroxysmal atrial fibrillation I48.0 ; Hyperlipemia E78.5 ; MCC (current) use of anticoagulants Z79.01 ; Essential hypertension I10 ; Encounter for screening for malignant neoplasm of colon Z12.11 ; Visit for screening mammogram Z12.31 and BMI 26.0-26.9,adult Z68.26 [facility] [address] [facility] [address] [place], [place] [address] 06/19/2025 Sarah Wing Routine medical exam Z00.00 ; Coronary artery disease involving grayling coronary artery of grayling heart without angina pectoris I25.10 ; Gastroesophageal reflux disease without esophagitis K21.9 ; Chronic systolic heart failure I50.22 ; Peripheral arterial disease I73.9 ; Paroxysmal atrial fibrillation I48.0 ; Hyperlipemia E78.5 ; Essential hypertension I10 ; History of tobacco use Z87.891 ; Medically noncompliant Z91.199 ; Encounter for immunization Z23 and Visit for screening mammogram Z12.31 [facility] [address] [facility] [address] [place], [place] [address] 07/10/2025 Sarah Wing Primary insomnia F51 .01 ; Adrenal mass E27.8 and Mixed hyperlipidemia E78.2 [facility] [address] [address] 10/02/2024 William Besson [facility] [address] [place] [address] 01/29/2025 Sarah McNees [facility] [address] [place] [address] 02/27/2025 Sarah McNees [facility] [place] [address] [place] [address] 03/05/2025 William Besson [facility] [address] [place] [address] 03/21/2025 Sarah McNees Abnormal mammogram R 92.8 [facility] [address] [place] [address] 06/19/2025 Sarah McNees [facility] [address] [place] [address] 06/20/2025 Sarah McNees Hyperglycemia R73.9 [facility] [address] [place] [address] 06/29/2025 William Besson Abnormal ultrasound of breast R92.8 and Abnormal mammogram R92.8 Assessments Encounter Date Diagnosis (ICD Code) Assessment Notes Treatment Notes Treatment Clinical Notes Section Notes 03/21/2025 Abnormal mammogram (ICD-10 - R92.8) 06/19/2025 Routine medical exam (ICD-10 - Z00.00) Order provided for fasting labs Needs antonio, has at home Pt was advised to reach out if she has not been scheduled for her imaging follow-up based on her mammogram and breast ultrasound findings by August 27. flu shot given 06/19/2025 Coronary artery disease involving grayling coronary artery of grayling heart without angina pectoris (ICD-10 - I25.10) No acute angina. Keep FU with cardiology 06/20/2025 Hyperglycemia (ICD-10 - R73.9) 07/10/2025 Primary insomnia (ICD-10 - F51.01) Restart hydroxyzine PRN for sleep MOA and SE profile discussed 07/10/2025 Adrenal mass (ICD-10 - E27.8) CT chest with incidental adrenal masses bilaterally, likely adenomas but not completed imaged, will obtain additional images and labs to further evaluate 06/29/2025 Abnormal ultrasound of breast (ICD-10 - R92.8) 02/27/2025 Routine medical exam (ICD-10 - Z00.00) Needs mammogram and cologuard, will arrange again 02/27/2025 Coronary artery disease involving grayling coronary artery of grayling heart without angina pectoris (ICD-10 - I25.10) No acute angina. Keep FU with cardiology 02/27/2025 Gastroesophageal reflux disease without esophagitis (ICD-10 - K21.9) well controlled on PPI 07/10/2025 Mixed hyperlipidemia (ICD-10 - E78.2) Repeat lipid panel with extended fast 06/19/2025 Gastroesophageal reflux disease without esophagitis (ICD-10 - K21.9) Well controlled on PPI, continue therapy. 06/29/2025 Abnormal mammogram (ICD-10 - R92.8) 06/19/2025 Chronic systolic heart failure (ICD-10 - [...] evaluate efficacy of current medication regimen. 02/27/2025 Paroxysmal atrial fibrillation (ICD-10 - I48.0) Rate well controlled. Eliquis for anticoagulation. No signs of excessive bleeding. 02/27/2025 Hyperlipemia (ICD-10 - E78.5) On repatha, tolerates well. WIll check fasting lipid panel 06/19/2025 Hyperlipemia (ICD-10 - E78.5) On repatha, tolerates well. Labs will be drawn today and reviewed personally to evaluate efficacy of current medication regimen. 06/19/2025 Essential hypertension (ICD-10 - I10) Blood pressure at goal, no changes made at this time. 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.01) [...] Order Date Ultrasound : Breast, Left 06/29/2025 Ultrasound : Breast, Left 03/21/2025 X ray : Shoulder, Left 09/14/2006 X ray : Orbits, Bilateral 09/14/2006 X ray : Nasal Bone 09/14/2006 X ray : Humerus, Left 09/14/2006 Mammogram : Bilateral 06/19/2025 Mammogram : Bilateral 07/19/2023 H-CBC with AUTO DIFF 01/31/2018 H-BMP 01/31/2018 H-BUN 07/21/2016 H-CREATININE SERUM 07/21/2016 H-MAGNESIUM 01/31/2018 H-LIVER PANEL 07/27/2016 H-TSH 01/31/2018 CT Scan : Adrenal with and without 07/10 CT Scan : Abdomen Adrenal Protocol 07/17 M-Hemoglobin A1C 06/20/2025 LIPID PANEL, STANDARD (7600) 07/10/2025 LIPID PANEL, STANDARD (7600) 02/27/2025 LIPID PANEL, STANDARD (7600) 10/19/2023 ALDOSTERONE/PLASMA RENIN ACTIVITY RATIO, LC/MS/MS (64868) 07/10/2025 COMPREHENSIVE METABOLIC PANEL (50451) COMPREHENSIVE METABOLIC PANEL (96731) CBC (INCLUDES DIFF/PLT) (6399) CBC (INCLUDES DIFF/PLT) (6399) 4 CORTISOL, A.M. (4212) 07/10/2025 TESTOSTERONE, TOTAL, MS ([id number]) 2024 Insurance Providers Payer Name Payer Address Payer Phone Subscriber Number Group Number Insured Name Patient Relationship to Insured Coverage Start Date Coverage End Date [facility] [facility] [address] [address] [place] [address] [id number] Ashley Ding Self - patient is the [...] Cardiac Stent 04/2025 Hospitalization History Reason Date(Month/Year) [facility] blood cot 12/2024 [facility]2023 [facility]- defibrillator shock, foot infection 12/2021 chest pain 2007 [place] 06/2016
== END 2025-07-23 23:59 | disposition home or self-care (01) ==
LOC: LAB 14:14
PROVIDERS: PCP Nurse Practitioner Family; Visit Provider Nurse Practitioner Family
DX: E27.8 Other specified disorders of adrenal gland (principal)
CPT/HCPCS: 36415; 82565; 84520

== ENCOUNTER 2025-07-24 07:55 | Outpatient (CLI) | payer OTHER, SELFPAY ==
--- NOTE | 2025-07-24 07:59 | CT_ITS ---
FINAL REPORT TECHNIQUE: Pre- and postcontrast images of the abdomen were performed by computed tomography. CLINICAL HISTORY: ADRENAL MASS COMPARISON: 06/29/2025 FINDINGS: The lung bases are clear. Precontrast imaging demonstrates dense vascular calcification of the abdominal aorta. There are bilateral renal artery stents in place. There is a benign-appearing cyst in the left kidney measuring 3.8 x 3.5 cm. A 6 mm stone is seen in the superior pole of the left kidney. There are bilateral adrenal masses with the largest on the right measuring 2.5 x 2.0 cm. Preinfusion mean attenuation value measures 28 Hounsfield units, postinfusion mean attenuation value is 16 Hounsfield units with delayed imaging of 115 Hounsfield units and 15-minute delay of 51 Hounsfield units. This is greater than 60% washout likely related to adenoma. Small nodules in the left adrenal gland measure up to 8 mm and are too small to characterize. There is a low-attenuation focus in the posterior right hepatic lobe measuring 1.5 cm which does not appear to represent a simple cyst or hemangioma. Findings are best seen on image 24 of series 5. Spleen and pancreas are unremarkable. IMPRESSION: Multiple bilateral adrenal masses with dominant mass on the right favored represent an adenoma. Other adrenal masses are too small to accurately characterize. 1.5 cm indeterminate liver lesion. Recommend pre and postcontrast MRI or a 3-6-month follow-up liver mass protocol CT. Reviewed, Interpreted and Dictated by Jaden Darby MD Transcribed by Kimmy Mai Authenticated and [facility]
[2025-07-24] MEDS: SODIUM CHLORIDE 0.9% 10ML SYR (RAD ONLY) 10 ML IV (08:36)
[2025-07-24] MEDS: IOPAMIDOL-370 (76%);100ML BOTTLE 75 ML IV (08:36)
== END 2025-07-24 23:59 | disposition home or self-care (01) ==
LOC: RAD 07:56
PROVIDERS: PCP Nurse Practitioner Family; Visit Provider Nurse Practitioner Family
DX: K76.9 Liver disease, unspecified (principal); E27.8 Other specified disorders of adrenal gland
CPT/HCPCS: 74170; Q9967

== ENCOUNTER 2025-08-30 13:33 | Outpatient (CLI) | payer OTHER, SELFPAY ==
--- OUTSIDE RECORDS SUMMARY | 2024-12-30 16:30 | XMS_ITS ---
Author Organization [facility] Address [address] [place] [address] Care Team Providers Care Boot And Shoe Repairman Name Role Phone William Hunter Primary Care Provider Sarah Wing Unavailable [phone] Migration, Provider Unavailable Unavailable Allergies Allergen (clinical drug ingredient) Drug/Non Drug Allergy documented on EMR Reaction Allergy Type Onset Date Status Substance with 3-rvaqvjk-9-methylg lutaryl-coenzyme A reductase inhibitor mechanism of action (substance) Statins couldnt walk Drug Allergy Active codeine Codeine Unknown Drug Allergy Active hydrocodone HYDROcodone itchy and nausea Drug Allergy Active [facility] V[facility]IT [facility] Encounter Medications Medication SIG (Take, Route, Frequency, Duration) Notes Start Date End Date Status Metoprolol Succinate ER 100 MG TAKE 1 AND 1/2 TABLET BY MOUTH TWICE DAILY; Duration: 30 days Active Aspirin 81 MG 1 TAB(S) ORALLY ONCE A DAY *Please review and pick correct strength-formula [facility]ion [facility]. If intended option is not shown, discontinue and re-order from Quick Search* Active hydrOXYzine HCl 25 MG 1 tab(s) orally 2 times a day; Duration: 30 days 06/24/2023 Active Jardiance 10 MG 1 tab(s) orally once a day (in the morning) Active amLODIPine Besylate 5 MG 1 tab(s) orally once a day; Duration: 30 day(s) Active Eliquis 5 MG 1 tab orally twice a day; Duration: 30 days Active Isosorbide Mononitrate ER 120 MG 1 tab(s) orally once a day (in the morning) Active Repatha 140 MG/ML subcutaneously every 2 weeks Active RANEXA 1000 MG 1 TAB(S) ORALLY 2 TIMES A DAY *Please review for potential replacement for e-prescription and drug interaction check* Active hydroCHLOROthiazide 25 MG 1 tab(s) orally every other day Active Pantoprazole Sodium 40 MG 1 tab(s) orally once a day Active Plavix 75 MG 1 tab(s) orally once a day Active Magnesium Gluconate 250 MG 1 tab(s) orally once a day Active Gabapentin 300 MG 1 cap(s) orally 2 times a day; Duration: 30 day(s) 08/29/2024 Active Nitroglycerin 0.4 MG 1 tab(s) sublingually every 5 minutes prn Active rOPINIRole HCl 0.25 MG 1 tab(s) orally a t bedtime Active Encounters Encounter Location Date Provider Diagnosis [facility] [address] [facility] [address] [facility] [address] [place] [address] 12/30/2024 Provider Migration Plan Of Treatment Medication Medication Name Sig Start Date Stop Date Notes Metoprolol Succinate ER 100 MG TAKE 1 AN D 1/2 TABLET BY MOUTH TWICE DAILY; Duration: 30 days amLODIPine Besylate 5 MG 1 tab(s) orally once a day; Duration: 30 day(s) Eliquis 5 MG 1 tab orally twice a day; Duration: 30 days Gabapentin 300 MG 1 cap(s) orally 2 ti mes a day; Duration: 30 day(s) 08/29/2024 Next Appt Details Provider Name:Sarah Mccormick, 11/06/2025 11:00:00 AM, [address] [facility] [address] [facility], [address], [place], [address], Progress Notes * Rodo GLEZB:1965 (60 yo F)Acc No.[id number]:12/30/2024 Patient: Ashley NICOLE Provider: Janell elizabeth Migration :1965 A ge:59 Y S ex:Female Date:12/30/2024 Address:[facility] [id number] Pcp:William Hunter Subjective: * Chief Complaints: * 1 . Multum To Medispan Conversion Encounter. * Medical History: * Medications: T aking Aspirin 81 MG TABLET 1 TAB(S) ORALLY ONCE A DAY , Notes to Pharmacist: *Please review and pick [facility]. If intended option is not shown, discontinue and re-order from Quick Search*, Taking Jardiance 10 MG Tablet 1 tab(s) orally once a day (in the morning) , Taking rOPINIRole HCl 0.25 MG Tablet 1 tab(s) orally at bedtime , Taking Nitroglycerin 0.4 MG Tablet Sublingual 1 tab(s) sublingually every 5 minutes prn , Taking Pantoprazole Sodium 40 MG Tablet Delayed Release 1 tab(s) orally once a day , Taking Plavix 75 MG Tablet 1 tab(s) orally once a day , Taking Magnesium Gluconate 250 MG Tablet 1 tab(s) orally once a day , Taking Isosorbide Mononitrate ER 120 MG Tablet Extended Release 24 Hour 1 tab(s) orally once a day (in the morning) , Taking Repatha 140 MG/ML Solution Prefilled Syringe subcutaneously every 2 weeks , Taking RANEXA 1000 MG TABLET, EXTENDED RELEASE 1 TAB(S) ORALLY 2 TIMES A DAY , Notes to Pharmacist: *Please review for potential replacement for e-prescription and drug interaction check*, Taking hydroCHLOROthiazide 25 MG Tablet 1 tab(s) orally every other day , Taking hydrOXYzine HCl 25 MG Tablet 1 tab(s) orally 2 times a day * Allergies: C odeine, HYDROcodone: itchy and nausea, Statins: couldnt walk. Objective: * Vitals: Assessment: Plan: * Treatment: * * Electronic signature of Prov ider Migration on 08/30/2025 at 01:36 PM EST Sign off status: Pending * Provider: Janell elizabeth Migration Date: 0 12/30/2024 Generated for Zuleima crockett/Joe/Farrukh on: 10/31/2024 01:36 PM EST
--- OUTSIDE RECORDS SUMMARY | 2025-07-10 07:30 | XMS_ITS ---
Author Organization [facility] D RENEE Address [address] [place] [address] Care Team Providers Care After School Counselor Name Role Phone William Hunter Primary Care Provider [phone] Sarah Wing [phone] Allergies Allergen (clinical drug ingredient) Drug/Non Drug Allergy documented on EMR Reaction Allergy Type Onset Date Status Substance with 4-fiqnixi-6-methylg lutaryl-coenzyme A reductase inhibitor mechanism of action (substance) Statins couldnt walk Drug Allergy Active codeine Codeine Unknown Drug Allergy Active hydrocodone HYDROcodone itchy and nausea Drug Allergy Active Results Component Value Reference Range Notes LIPID PANEL, STANDARD (7600) Reviewed date:07/24/2025 02:27:51 PM Interpretation: Performing Lab:TAMELA, [facility] [place] Caludio Notes/Report: NON-FASTING; NON-FASTING COLLECTION REQUIREMENTS NOT MET. PATIENT ADVISED TO RETURN. CHOLESTEROL, TOTAL 183 <200 mg/dL HDL CHOLESTEROL 41 > OR = 50 mg/dL TRIGLYCERIDES 504 <150 mg/dL If a non-fasting specimen was collected, consider repeat triglyceride testing on a fasting specimen if clinically indicated. Graham et al. J. of Clin. Lipidol. 2015;9:129-169. There is increased risk of pancreatitis when the triglyceride concentration is very high (> or = 500 mg/dL, especially if > or = 1000 mg/dL). Graham et al. J. of Clin. Lipidol. 2015;9:129-169. LDL-CHOLESTEROL LDL cholesterol not calculated. Triglyceride levels greater than 400 mg/dL invalidate calculated LDL results. Reference range: <100 Desirable range <100 mg/dL for primary prevention; <70 mg/dL for patients with CHD or diabetic patients with > or = 2 CHD risk factors. LDL-C is now calculated using the Sumanth-Hidalgo calculation, which is a validated novel method providing better accuracy than the Friedewald equation in the estimation of LDL-C. Sumanth SS et al. JACK. 2013;310(19): 4351-9463 (http://education.Fresvii.Wanderu/faq/AHQ376) CHOL/HDLC RATIO 4.5 <5.0 (calc) NON HDL CHOLESTEROL 142 <130 mg/dL (calc) For patients with diabetes plus 1 major ASCVD risk factor, treating to a non-HDL-C goal of <100 mg/dL (LDL-C of <70 mg/dL) is considered a therapeutic option. ALDOSTERONE/PLASMA RENIN ACT IVITY RATIO,LC/MS/MS (65260) Reviewed date:07/30/2025 09:20:14 AM Interpretation: Performing Lab:LUCIO, [facility],[address] [facility] HospitalCA[address] Caryn Campos MD,PhD,TANESHA Notes/Report: NON-FASTING ALDOSTERONE, LC/MS/MS 3 Adult Reference Ranges for Aldosterone: Upright 8:00-10:00 am < or = 28 ng/dL Upright 4:00-6:00 pm < or = 21 ng/dL Supine 8:00-10:00 am 3-16 ng/dL This test was developed and its analytical performance characteristics have been determined by [employer]. It has not been cleared or approved by the FDA. This assay has been validated pursuant to the CLIA regulations and is used for clinical purposes. PLASMA RENIN ACTIVITY, LC/MS/MS 1.49 0.25-5.82 ng/mL/h EVE/PRA RATIO 2.0 0.9-28.9 Ratio TESTOSTERONE, TOTAL, MS (885 83) Reviewed date:07/26/2025 04:06:44 PM Interpretation: Performing Lab:Z3E, [facility] [facility] [address], [address], [place] Catarina Perry MD,PhD Notes/Report: NON-FASTING TESTOSTERONE, TOTAL, MS 35 2-45 ng/dL For additional information, please refer to https://education.[employer].com/faq/TotalTestosteroneLC MSMS (This link is being provided for informational/educational purposes only.) (Note) This test was developed and its analytical performance characteristics have been determined by [employer]. It has not been cleared or approved by the FDA. This assay has been validated pursuant to the CLIA regulations and is used for clinical purposes. [facility] [address] [facility] [address] [facility] [address] Catarina Perry MD, PhD CT Scan : Adrenal with and w ithout Reviewed date:07/27/2025 10:05:29 AM Interpretation: Performing Lab: Notes/Report: Reason For Referral Reason CT adrenal mass prot ocol Diagnosis 1 Adrenal mass (E27.8) Referral Organization [facility] Referring Provider First Name Sarah Referring Provider Last Name Mecca Referring Provider Speciality Family Pra ctice Referred Organization [facility] Referred Address [address] [place] [address], Referred Provider Specialty Diagnostic R adiology General Notes Vijaya Gomez 2024 10:57:46 AM >Pending precert with [employer] Service order [id number], Vijaya Gomez 07/17/2025 12:11:26 PM >CPT [id number] shaffer 07/11/2025 03:53:40 PM EDT > Auth [id number] 07/11/25-09/09/25 [facility] Referral Priority Routine REASON FOR VISIT Med Ck, having trouble sleeping and is wanting to get back on Hydroxyzine Medications Medication SIG (Take, Route, Frequency, Duration) Notes Start Date End Date Status Gabapentin 300 MG 1 cap(s) orally 2 ti mes a day; Duration: 30 day(s) 03/05/2025 Active Metoprolol Succinate ER 100 MG TAKE 1 AND 1/2 TABLET BY MOUTH TWICE DAILY; Duration: 90 days Active hydroCHLOROthiazide 25 MG 1 tab(s) orall y every other day Active RANEXA 1000 MG 1 TAB(S) ORALLY 2 TI MES A DAY Active Eliquis 5 mg TAKE ONE TABLET BY MOUTH TWICE DAILY; Duration: 60 Active Repatha 140 MG/ML subcutaneously every 2 weeks Active Isosorbide Mononitrate ER 12 0 MG 1 tab(s) orally once a day (in the morning) Active Magnesium Gluconate 250 MG 1 tab(s) oral ly once a day Active Plavix 75 MG 1 tab(s) orally once a day Active Pantoprazole Sodium 40 MG 1 tab(s) orall y once a day Active rOPINIRole HCl 0.25 MG 1 tab(s) orally a t bedtime Active Jardiance 10 MG 1 tab(s) orally once a day (in the morning) Active Aspirin 81 MG 1 TAB(S) ORALLY ONCE A DAY Active hydrOXYzine HCl 25 MG 1 tablet at bedtim e as needed Orally Once a day; Duration: 90 days 07/10/2025 Active Nitroglycerin 0.4 MG 1 tab(s) sublingual ly every 5 minutes prn Active Social History Tobacco Use: Social History Observation Description Date Details (start date - stop date) Former Smoker NA - NA Smoking: Question Answer Notes Are you a: former smoker How long has it been since you last smoked? 6-12 months Problems Problem Type SNOMED Code ICD Code Onset Dates Problem Status W/U Status Risk Notes Problem Primary insomnia (5865087) Primary insomnia (F51.01) Active confirmed Problem Adrenal mass (075871013) Adrenal mass (E27.8) Active confirmed Problem Mixed hyperlipidemia (858780627) Mixed hyperlipidemia (E78.2) Active confirmed Vital Signs Temperature 97.6 degrees Fahrenheit 07/10/20 25 Blood pressure systolic 134 mm Hg 07/10/20 25 Blood pressure diastolic 82 mm Hg 025 Heart Rate 92 /min 07/10/2025 Height 64 in 07/10/2025 Weight 154.8 lbs 07/10/2025 BMI 26.57 kg/m2 07/10/2025 Encounters Encounter Location Date Provider Diagnosis [facility] PED RENEE [address] [place] [address] 07/10/2025 Sarah Mecca Primary insomnia F51 .01 ; Adrenal mass E27.8 and Mixed hyperlipidemia E78.2 Assessments Encounter Date Diagnosis (ICD Code) Assessment Notes Treatment Notes Treatment Clinical Notes Section Notes 07/10/2025 Primary insomnia (ICD-10 - F51.01) Restart hydroxyzine PRN for sleep MOA and SE profile discussed 07/10/2025 Adrenal mass (ICD-10 - E27.8) CT chest with incidental adrenal masses bilaterally, likely adenomas but not completed imaged, will obtain additional images and labs to further evaluate 07/10/2025 Mixed hyperlipidemia (ICD-10 - E78.2) Repeat lipid panel with extended fast Plan Of Treatment Medication Medication Name Sig Start Date Stop Date Notes hydrOXYzine HCl 25 MG 1 tablet at bedtim e as needed Orally Once a day; Duration: 90 days 07/10/2025 Treatment Notes Assessment Notes Primary insomnia Restart hydroxyzine PRN for sleep MOA and SE profile discussed Adrenal mass CT chest with incide ntal adrenal masses bilaterally, likely adenomas but not completed imaged, will obtain additional images and labs to further evaluate Mixed hyperlipidemia Repeat lipid panel with extended fast Pending Test Test Name Order Date CORTISOL, A.M. (4212) 07/10/2025 TESTOSTERONE, TOTAL, MS ([id number]) 2024 Referrals Referral Date Details 07/10/2025 07/10/2025, CT adren al mass protocol, [address] [facility], [place], [address], Next Appt Details Follow Up: pending CT, Reaso n: Provider Name:Sarah Mccormick, 11/06/2025 11:00:00 AM, [address], [address], [place], [address], Progress Notes * Rodo DINGB:1965 (59 yo F)Acc No.[id number]:07/10/2025 Progress Notes Patient: Ashley NICOLE Provider: Jeremi Wing APRN :1965 A ge:59 Y S ex:Female Date:07/10/2025 Address:[address] [place] [address] [id number] Pcp:William Phoenix Besson Subjective: * Chief Complaints: * 1 . Med Ck. 2. having trouble sleeping and is wanting to get back on Hydroxyzine. * HPI: g en: 59 y/o female presents to discuss recent CT chest results and insomnia. CT chest lung cancer screening stable with incidental adrenal masses bilaterally. Insomnia- difficulty falling asleep and staying asleep. Mood is stable. No anxiety issues. Fasting lipid panel with trig > 700, ate around midnight the night before labs. * ROS: R ESPIRATORY: no C hest congestion. n o C ough. C ARDIOLOGY: See HPI Y es. C ONSTITUTIONAL: no L oss of appetite. n o F ever. G ASTROENTEROLOGY: Reviewed, No Symptoms Reported: Y es. H EMATOLOGY/LYMPH: no S wollen glands. n o F atigue. n o L oss of appetite. n o E asy bruising. N EUROLOGY: no H eadache. T ingling numbness y es, f eet.?no D izziness. * Medical History: H ypertension, Emphysema, HLD, [...] Procedure: M I 06/2016, chest pain 2006, [facility]- defibrillator shock, foot infection 12/2021, [place] 05/2023, [facility]- blood cot 12/2024. * Family History: F ather: alive, melanoma, prostate, diagnosed with Cancer, Diabetes, Hypertension. M other: alive, diagnosed with Cancer, Hypertension, Heart Disease. P aternal Grand Father: . Paternal Grand Mother: . M aternal Grand Father: . M aternal Grand Mother: . S iblings: alive, 1 sister ; mva. Redd whitfield: [...] tab(s) orally every other day , Taking Metoprolol Succinate ER 100 MG Tablet Extended Release 24 Hour TAKE 1 AND 1/2 TABLET BY MOUTH TWICE DAILY , Taking Gabapentin 300 MG Capsule 1 cap(s) orally 2 times a day , Taking Eliquis 5 mg Tablet TAKE ONE TABLET BY MOUTH TWICE DAILY , Discontinued hydrOXYzine HCl 25 MG Tablet 1 tab(s) orally 2 times a day , Medication List reviewed and reconciled with the patient * Allergies: C odeine, HYDROcodone: itchy and nausea, Statins: couldnt walk. Objective: * Vitals: N tigre: jl, Pain: 1, Temp: 97.6, RR: 18, HR: 92, BP: 134/82, Ht: 64, Wt: 154.8, BMI:26.57. * Examination: G eneral Examination: General P leasant and Cooperative, NAD on RA,. Chest: n ormal shape and expansion. Heart: R egular Rate and Rhythm, no murmur, rubs or gallops. Lungs: L CTAB, No wheezes, crackles or rhonchi, Good air movement,. neck s upple,, no thyromegaly,, no lymphadenopathy,. Psych N ormal Mood/Affect. Assessment: * Assessment: 1. P rimary insomnia - F51.01 (Primary) 2 . A drenal mass - E27.8 ? 3 . M ixed hyperlipidemia - E78.2 Plan: * Treatment: 2. A drenal mass L AB: ALDOSTERONE/PLASMA RENIN ACTIVITY RATIO,LC/MS/MS (93060) L AB: CORTISOL, A.M. (4212) L AB: TESTOSTERONE, TOTAL, MS ([id number]) I maging: CT Scan : Adrenal with and without * Notes: CT chest with incidental adrenal masses bilaterally, likely adenomas but not completed imaged, will obtain additional images and labs to further evaluate? Referral To: ?Reason:CT adrenal mass protocol 3.?Mixed hyperlipidemia?LAB: LIPID PANEL, STANDARD (7600)* Value Reference Range T RIGLYCERIDES 504 H <150 - mg/dL * C HOLESTEROL, TOTAL 183 <200 - mg/dL * H DL CHOLESTEROL 41 L > OR = 50 - mg/dL * C HOL/HDLC RATIO 4.5 <5.0 - (calc) * N ON HDL CHOLESTEROL 142 H <130 - mg/dL (calc) * Sarah Wing 07/24/20 09:56:24 AM EDT > triglycerides are better but not at goal,add fish oil 1 gram, low saturated fat, low carb/sugar, repeat labs in 3-4 monthsKrissy Sigala 07/24/2025 02:27:37 PM EDT > pt informed/appt madeThis lab was reviewed by Krissy Sgiala on 07/24/2025 at 14:27 PM EDT Notes: Repeat lipid panel with extended fast?? * Labs: * L ab: TESTOSTERONE, TOTAL, MS (86109) Value Reference Range T ESTOSTERONE, TOTAL, MS 35 2-45 - ng/dL * eclMobakids, support 06/29 03:35:04 : This order was created by the Interface.This lab was reviewed by Sarah Wing on 07/26/2025 at 16:06 PM EDT * Follow Up: p ending CT * * Sign off status: Completed true * Provider: Jeremi Wing APRN Date: 1 Generated for Zuleima crockett/Joe/eTransmitting on: 1 10/31/2024 01:36 PM EST History and Physical Notes * HPI (History of Present Illness) Category Sub-Category Detail Notes Category Not es gen 59 y/o female presents to discuss recent CT chest results and insomnia. CT chest lung cancer screening stable with incidental adrenal masses bilaterally. Insomnia- difficulty falling asleep and staying asleep. Mood is stable. No anxiety issues. Fasting lipid panel with trig > 700, ate around midnight the night before labs Examination Category Sub-Category Detail Notes Category Not es General Examination Heart: Regular Rate and Rhythm, no murmur, rubs or gallops Lungs: LCTAB, No wheezes, c rackles or rhonchi, Good air movement, Chest: normal shape and exp ansion neck supple,, no thyromeg griffin,, no lymphadenopathy, General Pleasant and Coopera tive, NAD on RA, Psych Normal Mood/Affect Consultation Request Notes Referral Date Referring Provider Referred Provider Not es 07/10/2025 Sarah Wing , CT adrenal mas s protocol
--- OUTSIDE RECORDS SUMMARY | 2025-07-16 12:00 | XMS_ITS | Encounter Summary ---
Author [place] [address] Care Team Providers Care Liquor Merchant Name Role Phone González Gotti MD Unavailable [phone] Cristi Cleaning MD Unavailable [phone] William Hunter MD Primary Care Provider [phone] Reason for Referral * In Office Procedure (Routine) - Pending Review Specialty Diagnoses / Procedures Referred By Contherlinda t Referred To Contact Diagnoses Pressure ulcer of left heel, stage 4 (HCC) Procedures MT DEBRIDEMENT SUBCUTANEOUS TISSUE 1ST 20 SQ CM/< Cristi Pelletier DPM [address] [address] Phone: tel: fax: Referral ID Status Reason Start Date Expiration Date V isits Requested Visits Authorized [id number] Pending Review 07/16/2025 07/16/2026 1 1 * Vascular Imaging (Urgent) - Closed Specialty Diagnoses / Procedures Referred By Contherlinda t Referred To Contact Radiology Diagnoses 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) Pressure ulcer of left heel, stage 4 (HCC) Procedures [facility] LOWER EXTREMITY ARTERIAL DUPLEX COMPLETE Cristi Pelletier DPM [facility] [facility] [address] [place] [phone] Phone: tel: fax: Referral ID Status Reason Start Date Expiration Date Visits Re quested Visits Authorized [id number] Closed 07/16/2025 07/17/2027 1 1 * (Routine) - Pending Review Specialty Diagnoses / Procedures Referred By Contac t Referred To Contact Diagnoses Pressure ulcer of left heel, stage 4 (HCC) Procedures [facility] PRIMARY DRESSING Cristi Pelletier DPM [address] [facility] [address] [place] [address] Phone: tel: fax: Referral ID Status Reason Start Date Expiration Date V isits Requested Visits Authorized [id number] Pending Review 07/16/2025 07/16/2026 1 1 Reason for Visit * Reason [...] WND EA ADDL 20 SQ CM/PRT THEREOF [facility] [place] [address] [place] [address] Phone: tel: fax: Referral ID Status Reason Start Date Expiration Date Visits Requested Visits Authorized [id number] Authorization Not Needed Specialty Services Required 5 01/08/2026 99 99 Encounter Details Date Type Department Care Team (Latest Contact Info) Description 07/16/2025 1:00 PM EDT - 07/16/2025 11:59 PM EDT Hospital Encounter [facility] [place] [address] [place] [address] Cristi Pelletier DPM [address] [facility] [address] [place] [address] Atherosclerosis of artery of extremity with ulceration [...] 0.6 oz pur e alcohol) [facility] Utilities Answer Date Recorded In the [...] Date Recorded PHQ-2 Total Score 0 12/28/2024 [facility] - Occupational Stress [...] No 05/29/2023 [facility] IP Transportation Answer D ate [...] Sign Reading Time Taken Comments Blood Pressure 149/86 07/16/2025 1:09 PM EDT Pulse 70 07/16/2025 1:09 PM EDT Temperature 36.4 C (97.6 F) 07/16/2025 1:09 PM EDT Respiratory Rate 18 07/16/2025 1:09 PM EDT Oxygen Saturation - - Inhaled [...] days. fluticasone propionate (FLONASE) 50 mcg/actuation Nasl [place], Suspension 1 spay each nostril twice daily [...] EDT 06/11/2023 oxymetazoline (AFRIN) 0.05 % Nasl [place], Non-Aerosol 1 [place] by Nasal route as needed for Congestion [...] Progress Notes * Cristi Pelletier DPM - 07/16/2025 1:00 PM EDT Date of Visit:07/16/2025 Progress Note HPI Ashley Ding is a 60 y.o. year old female patient who presents today for wound evaluation and follow-up. Daily dressing change No increase pain Foot stable Past Medical History: Diagnosis Date Anesthesia complication only with phenergan, alarming how long it takes her to wake up Asthma Bradycardia CAD (coronary artery disease) Cardiac pacemaker DUSTIN Dual PPM 11/05/2016 - Dr. Cleaning Chronic systolic heart failure (HCC) COPD (chronic obstructive pulmonary disease) (HCC) Depression with anxiety Emphysema, unspecified (HCC) Essential hypertension Headache Heartburn History of cardiac cath 03/23/2017 Stent placed in Right leg 03/23/2017 HLD (hyperlipidemia) Hypertension CA (myocardial infarction) (HCC) 06/2016 Pacemaker Post-operative nausea and vomiting Sinus node dysfunction (HCC) PJ Dual PPM 11/05/2016 - Dr. Cleaning STEMI (ST elevation myocardial infarction) (HCC) STEMI with 3 NORI to RCA Systolic heart failure (HCC) 02/2017 ECHO, EF 25% Past Surgical History: Procedure Laterality Date CARDIAC CATHETERIZATION Right 03/23/2017 stent placed in right leg CARDIAC PACEMAKER PLACEMENT 11/05/2016 SJM Dual PPM COLONOSCOPY CORONARY ANGIOPLASTY WITH STENT PLACEMENT 06/2016 x3 DEBRIDEMENT Left 05/19/2023 .; Surgeon: Jabari Hill DPM; Location: [facility]; Service: Orthopedics FEMUR FRACTURE SURGERY Right right femur fx repair FOOT SURGERY FOOT SURGERY Left 12/23/2022 Left foot heel and second and third toe debridement with application of skin graft substitute. ; Surgeon: Jabari Hill DPM; Location: [facility]; Service: Orthopedics FOOT SURGERY Left 02/10/2023 Surgeon: Jabari Hill DPM; Location: [facility]; Service: Orthopedics FOOT SURGERY Left 06/06/2023 left FOOT TRANSMETATARSAL amputation; Surgeon: Jabari Hill DPM; Location: [facility] OR; Service: Podiatry HAMMER TOE SURGERY Left 06/15/2022 Left foot Correction of hammer toe deformity with arthroplasty second and third toe. Left foot Application of skin graft substitute.; Surgeon: Jabari Hill DPM; Location: [facility]; Service: Podiatry HIP SURGERY IR ABDOMINAL AORTOGRAM SERIALOGRAM 03/13/2022 IR ABDOMINAL AORTOGRAM SERIALOGRAM 03/13/2022 Kashif Wong MD EDG IR IR ABDOMINAL AORTOGRAM SERIALOGRAM 11/04/2022 IR ABDOMINAL AORTOGRAM SERIALOGRAM 11/04/2022 Vishnu Penn MD EDG IR IR ABDOMINAL AORTOGRAM SERIALOGRAM 12/02/2022 IR ABDOMINAL AORTOGRAM SERIALOGRAM 12/02/2022 Vishun Penn MD EDG IR IR ABDOMINAL [...] IR REVAS FEM POP ART UNILAT W [facility] 03/13/2022 IR REVAS FEM POP ART UNILAT W [facility] 03/13/2022 Kashif Wong MD EDG IR IR REVAS FEM POP ART UNILAT W [facility] 06/02/2023 IR REVAS FEM POP ART UNILAT W [facility] 06/02/2023 Vishnu Penn MD EDG IR IR REVAS FEM POP ART UNILAT W [facility] 12/28/2024 IR REVAS FEM POP ART UNILAT W [facility] 12/28/2024 Vishnu Penn MD EDG IR IR [...] Surgeon: Jabari Hill DPM; Location: [facility]; Service: Orthopedics SKIN GRAFT Left 06/15/2022 Surgeon: Jabari Hill DPM; Location: [facility]; Service: Podiatry SKIN GRAFT Left 12/23/2022 . ; Surgeon: Jabari Hill DPM; Location: [facility]; Service: Orthopedics SKIN GRAFT 02/10/2023 Surgeon: Jabari Hill DPM; Location: [facility]; Service: Orthopedics TOE AMPUTATION Left 02/10/2023 Left foot second toe amputation, Left foot excisional debridement with application of skin graft substitute; Surgeon: Jabari Hill DPM; Location: [facility]; Service: Orthopedics TOE AMPUTATION Left 05/19/2023 Left foot, amputation of third toe. Left foot, wound debridment application. Left foot, skin graft substitute. Left foot wound debridment closure.; Surgeon: Jabari Hill DPM; Location: [facility]; Service: Orthopedics Current Outpatient Medications [...] days. fluticasone propionate (FLONASE) 50 mcg/actuation Nasl [place], Suspension 1 spay each nostril twice daily [...] Chest pain. oxymetazoline (AFRIN) 0.05 % Nasl [place], Non-Aerosol 1 [place] by Nasal route as needed for Congestion [...] MEDICINE -- (Patient not taking: Reported on 07/16/2025) oxyCODONE-acetaminophen (PERCOCET) 5-325 mg Oral Tablet Take 1-2 Tablets by mouth every 4 hours as needed for Acute Pain (R52). (Patient not taking: Reported on 07/16/2025) 30 Tablet 0 No current facility-administered medications for this encounter. Allergies Allergen Reactions Atorvastatin Myalgia Ezetimibe Myalgia Rosuvastatin Myalgia Simvastatin Myalgia Kwsuicn-Qca-Jrn Reductase Inhibitors Other (See Comments) Joint pain Codeine Itching nausea Hydrocodone Itching nausea Phenergan [Promethazine] Other (See Comments) Made legs restless And also very sleepy ROS See HPI for further details. Relevant review of systems otherwise negative. Physical Exam Vitals: 07/16/25 1309 BP: 149/86 Pulse: 70 Resp: 18 Temp: 97.6 ??F (36.4 ??C) TempSrc: Forehead Unable to palpate the DP and PT pulses Previously was able to palpate at least 1 Concern for reocclusion Ulcer Progress and Procedure Please refer to the LDA for details of ulcer progress and procedure. Ulcer evaluated left plantar posterior heel No gross evidence of infection No abscess or sinus formation No fluctuance No malodor No ascending cellulitis or lymphangitis No gross necrosis of wound edges or base Wound bed appears viable Assessment and Plan Ashley was seen today for wound check. Diagnoses and all orders for this visit: 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) - [place] [facility] LOWER EXTREMITY ARTERIAL DUPLEX COMPLETE; Future Pressure ulcer of left heel, stage 4 (HCC) - [facility] PRIMARY [facility] - [place] [facility] LOWER EXTREMITY ARTERIAL DUPLEX COMPLETE; Future - MT DEBRIDEMENT SUBCUTANEOUS TISSUE 1ST 20 [...] significant episodes of pain. No adverse events. Ordered vascular studies for the arterial inflow disease Concern for reocclusion of arterial structures documented in this encounter Miscellaneous Notes * Patient Instructions - Balbina Tong RN - 07/16/2025 1:00 PM EDT HOME-CARE INSTRUCTIONS FOLLOWING YOUR WOUND [...] Center in [address] Pelletier Arterial doppler studies have been ordered for you. These are completed in the vascular lab. You need to call and get these scheduled. Please call central scheduling [phone] or [phone] as soon as possible to get these scheduled. They can be completed at any of the [facility] facilities. Left heel- collagen, adaptic overlay, 4x4, roll gauze, every other day. 03/26 [employer] has been contacted to obtain [...] feel free to reach out to our refinery operator crude unit, Hanna Riggs at [phone] for any discussion. WHO TO CALL FOR PROBLEMS: Please call the OP wound care center with any problems or issues you may have after your visit or though the week. Each patient is assigned a shoe parts caser who can assist with issues you may be having. Individual office numbers are listed below. Press 1 for immediate or schedule needs, press 2 for the nursing line. The nurse line is for non-emergent needs and will be answered within 24 hours duringbus days. If you have a more immediate concern, press option #1. Office numbers: [phone] [facility] [phone] [facility] [phone] Our offices do not have an on-call provider. If you have emergent needs after hours please contact your primary care provider. You may also utilize the [facility] Nurse NOW Helpline: [phone] for after-hours needs to get in contact [...] feel free to reach out to our refinery operator crude unit, Hanna Riggs at [phone] for any discussion. * Addendum Note - Rosmery Cotto RN - 07/16/2025 1:00 PM EDTEncounter addended by: Rosmery Cotto RN on: 07/17/2025 9:37 AM Actions taken: Flowsheet accepted, Charge Capture section accepted documented in this encounter Plan of Treatment Upcoming Encounters Date Type Department Care Team (Late st Contact Info) Description 09/03/2025 1:15 PM EST Appointment [facility] [place] [address] [place] [address] Cristi Pelletier, DPJeremi [address] [facility] [address] [place] [address] 09/12/2025 10:00 AM EST Appointment [facility] IR [facility] [place] [address] Vishnu Penn MD [address] [place] [address] [address] [place] [address] 11/12/2025 1:30 PM EST Appointment [facility] VASCULAR [address] [place] [address] [address] [place] [phone] MayNette CARDIAC REHABILITATION SPECIALIST [address] [place] [address] [facility] [address] [place] [address] 11/12/2025 2:40 PM EST Office Visit [facility] [address] [place] [address] [address] [place] [phone] [address]ette [address] [place] [address] Scheduled Orders Name Type Priority Associated Diagnoses Orde r Schedule MT DEBRIDEMENT SUBCUTANEOUS TISSUE 1ST 20 SQ CM/< MT Charge Routine Pressure ulcer of left heel, stage 4 (HCC) Ordered: 07/16/2025 documented as of this encounter Goals Goal Patient Goal Type Associated Problems Recent Progress Patient-Stated? Author Wound Healing General Not on track(2024 1:16 PM EST) Tsering Doran, RN Note: Wound Care Goals [...] documented as of this encounter Results * [facility] LOWER EXTREMITY ARTERIAL DUPLEX COMPLETE (07/20/2025 3:40 PM EDT) Anatomical Region Laterality Modality Vascular, Leg Vascular Imaging 07/20/2025 3:20 PM EDT Impressions 07/20/2025 4:35 PM EDT Conclusions * Bilateral tibial vessel disease. * Right RODOLFO (0.89) is in the mild claudication range. * Right TBI (0.37) below normal limits. * Right great toe pressure is above the healing index. * Left RODOLFO (0.61) is in the severe claudication range. * Unable to obtain left great toe pressure and TBI due to the prior transmetatarsal amputation. Narrative Procedure Note Eusebio De Leon MD - 07/20/2025 IMPRESSION Conclusions * Bilateral tibial vessel disease. * Right RODOLFO (0.89) is in the mild claudication range. * Right TBI (0.37) below normal limits. * Right great toe pressure is above the healing index. * Left RODOLFO (0.61) is in the severe claudication range. * Unable to obtain left great toe pressure and TBI due to the prior transmetatarsal amputation. us Cristi Pelletier DPJeremi IMG VASCULAR ORDERABLES Final Result documented in this encounter Visit Diagnoses Diagnosis Atherosclerosis of [...] % ointment Topical, ONCE, 1 dose, On 07/16/25 at 1330, Application site: left heel Given 07/16/2025 1:21 PM EDT documented in this encounter Orders Medications Ordered That Daniel ht Not Have Been Administered Count Last Ordered Date First Ordered Date lidocaine (XYLOCAINE) 5 % ointment 1 2024 Nursing Count Last Ordered Date First Orde red Date AMB [facility] PRIMARY DRESSING 1 07/16/2025 documented in this encounter Care Teams Liquor Merchant Relationship Specialty Start Date End Date William Hunter MD [address] [place] [address] [place] [phone] PCP - General Internal Medicine-Adolescent Medicine 05/28/23 González Gotti MD [address] [place] [address] [place] [address] Consulting Physician Internal Medicine - Clinical Cardiac Electrophysiology 04/05/17 Critsi Cleaning MD [address] [place] [address] [place] [address] Physician Internal Medicine-Cardiovascular Disease 04/05/17 documented as of this encounter
--- OUTSIDE RECORDS SUMMARY | 2025-07-20 13:13 | XMS_ITS | Encounter Summary ---
Author Organization [place] [address] Care Team Providers Care Email Developer Name Role Phone González Gotti MD Unavailable [phone] Cristi Cleaning MD Unavailable [phone] William Hunter MD Primary Care Provider [phone] Reason for Referral * Vascular Imaging (Urgent) - Closed Specialty Diagnoses / Procedures Referred By Brian villavicencio Referred To Contact Radiology Diagnoses 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) Pressure ulcer of left heel, stage 4 (HCC) Procedures [facility] LOWER EXTREMITY ARTERIAL DUPLEX COMPLETE Cristi Pelletier DPM [address] [address] Phone: tel: fax: Referral ID Status Reason Start Date Expiration Date Visits Re quested Visits Authorized [id number] Closed 07/16/2025 07/17/2027 1 1 Reason for Visit * Vascular Imaging (Urgent) - Closed Specialty Diagnoses / Procedures Referred By Brian villavicencio Referred To Contact Radiology Diagnoses 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) Pressure ulcer of left heel, stage 4 (HCC) Procedures [facility] LOWER EXTREMITY ARTERIAL DUPLEX COMPLETE Cristi Pelletier DPM [address] [address] Phone: tel: fax: Referral ID Status Reason Start Date Expiration Date Visits Re quested Visits Authorized [id number] Closed 07/16/2025 07/17/2027 1 1 Encounter Details Date Type Department Care Team (Latest Contact Info) Description 07/20/2025 2:13 PM EDT - 07/20/2025 11:59 PM EDT Hospital Encounter [facility] [address] [place] [address] Cristi Pelletier, DPM [address] [place] [address] 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); Pressure ulcer of left heel, stage 4 (HCC) Discharge Disposition: Home or Self Care Social History Tobacco Use Types Packs/Day Years Used Date Smoking Tobacco: Former Cigarettes 0.3 40 0 12/26/1981 - 12/26/2021 Passive Smoke Exposure: Past Smokeless Tobacco: Never Alcohol Use Standard Drinks/Week Comments Not Currently 0 (1 standard drink = 0.6 oz pur e alcohol) [facility] Utilities Answer Date Recorded In the past 12 months has [employer] electric, gas, oil, or water [employer] threatened to shut off services in your home? No 12/28/2024 Overall Financial Resource Strain (CARDIA) Answe r Date Recorded How hard is it for you to pa y for the very basics like food, housing, medical care, and heating? Not hard at all 12/28/2024 PHQ-2 Answer Date Recorded PHQ-2 Total Score 0 12/28/2024 [facility] [place] of Occupat ional Health - Occupational Stress [...] things needed for daily living? No 05/29/2023 [facility] IP Transportation Answer D ate Recorded [...] days. fluticasone propionate (FLONASE) 50 mcg/actuation Nasl [place], Suspension 1 spay each nostril twice daily [...] EDT 06/11/2023 oxymetazoline (AFRIN) 0.05 % Nasl [place], Non-Aerosol 1 [place] by Nasal route as needed for Congestion [...] Info) Description 09/03/2025 1:15 PM EST Appointment [facility] [address] [place] [address] Cristi Pelletier, DPJeremi [address] [place] [address] [address] [place] [address] 09/12/2025 10:00 AM EST Appointment [facility] IR [place] [address] Vishnu Penn MD [address] [place] [address] [address] [place] [address] 11/12/2025 1:30 PM EST Appointment [facility] [address] [place] [address] [address] [place] [address] Nette Jalloh APRN [address] [place] [address] [address] [place], [place] [id number] 11/12/2025 2:40 PM EST Office Visit [facility] S[facility] [address] [facility] [address] [place] [address] Nette Jalloh, QUARTER FOLDER [address] [facility] [address] [place] [address] documented as of this encounter Goals Goal Patient Goal Type Associated Problems Recent Progress Patient-Stated? Author Wound Healing General Not on track(2024 1:16 PM EST) Tsering Doran RN Note: Wound Care Goals [...] Name Priority Date/Time Associated Diagnosis Comments [facility] LOWER EXTREMITY ARTERIAL DUPLEX COMPLETE MAYITO 07/20/2025 3:40 PM EDT 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) Pressure ulcer of left heel, stage 4 (HCC) documented in this encounter Results * [facility] LOWER EXTREM[facility] ARTERIAL DUPLEX COMPLETE (07/20/2025 3:40 [...] to the prior transmetatarsal amputation. Cristi Pelletier DP IMG VASCULAR ORDERABLES Final Result documented in this encounter Visit Diagnoses Diagnosis 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) Pressure ulcer of left heel, stage 4 (HCC) documented in this encounter Care Teams Email Developer Relationship Specialty Start Date End Date William Hunter MD [facility] [place] [address] [facility] [phone] PCP - General Internal Medicine-Adolescent Medicine 05/28/23 González Gotti MD [address] [place] [address] [place] [address] Consulting Physician Internal Medicine - Clinical Cardiac Electrophysiology 04/05/17 Cristi Cleaning MD [address] [facility] [place] [address] Physician Internal Medicine-Cardiovascular Disease 04/05/17 documented as of this encounter
--- OUTSIDE RECORDS SUMMARY | 2025-07-23 09:00 | XMS_ITS ---
Author Organization [facility] Address [address] [place] [address] [place], [place] [address] Care Team Providers Care Housekeeper Supervisor Name Role Phone William Hunter Primary Care Provider [phone] Sarah Wing [phone] REASON FOR VISIT Labs Encounters Encounter Location Date Provider Diagnosis [facility] [address] [place] [address] [place] [address] 07/23/2025 Sarah Wing Plan Of Treatment Next Appt Details Provider Name:Sarah Mccormick, 11/06/2025 11:00:00 AM, [address] [place] [address], [address], [place], [address], Progress Notes * Ulisses GLEZ:1965 (60 yo F)Acc No.[id number]:07/23/2025 LABS Patient: Ashley NICOLE Provider: Jeremi Wing APRN :1965 A ge:60 Y S ex:Female Date:07/23/2025 Address:[place] Pcp:William Hunter Subjective: * Chief Complaints: * 1 . Labs. * Medical History: Objective: * Vitals: Assessment: Plan: * Treatment: * * Electronic signature of Michoacano Wing APRN on 08/30/2025 at 01:36 PM EST Sign off status: Pending * Provider: Jeremi Wing APRN Date: 1 Generated for Zuleima crockett/Joe/Farrukh on: 10/31/2024 01:36 PM EST
--- OUTSIDE RECORDS SUMMARY | 2025-07-30 12:45 | XMS_ITS | Encounter Summary ---
Author Organization [place] [address] Care Team Providers Care Spine Specialist Name Role Phone González Gotti MD Unavailable [phone] Cristi Cleaning MD Unavailable [phone] William Hunter MD Primary Care Provider [phone] Reason for Referral * In Office Procedure (Routine) - Pending Review Specialty Diagnoses / Procedures Referred By Contac t Referred To Contact Diagnoses Stage III pressure ulcer of left heel (HCC) Procedures MS DEBRIDEMENT SUBCUTANEOUS TISSUE 1ST 20 SQ CM/< Cristi Pelletier DPM [address] [address] Phone: tel: fax: Referral ID Status Reason Start Date Expiration Date V isits Requested Visits Authorized [id number] Pending Review 07/30/2025 07/30/2026 1 1 * (Routine) - Pending Review Specialty Diagnoses / Procedures Referred By Contac t Referred To Contact Diagnoses Stage III pressure ulcer of left heel (HCC) Procedures [facility] PRIMARY DRESSING Cristi Pelletier DPM [address] [address] Phone: tel: fax: Referral ID Status Reason Start Date Expiration Date V isits Requested Visits Authorized [id number] Pending Review 07/30/2025 07/30/2026 1 1 * Surgical (Routine) - Pending Review Specialty Diagnoses / Procedures Referred By Brian villavicencio Referred To Contact Surgery-Vascular Surgery / Vascular Surgery Diagnoses Stage III pressure ulcer of left heel (HCC) Procedures MS OFFICE/OUTPATIENT NEW MODERATE MDM 45 MINUTES Cristi Pelletier DPM [address] [address] Phone: tel: fax: Vishnu Penn MD [address] [address] Phone: tel: fax: Referral ID Status Reason Start Date Expiration Date V isits Requested Visits Authorized [id number] Pending Review 07/30/2025 07/30/2026 1 1 Comments See recent US - occulusion Reason for Visit * Reason Comments Wound Check * Consultation (Routine) - Authorization Not Needed Specialty Diagnoses / Procedures Referred By Brian villavicencio Referred To Contact Wound Care Diagnoses Wound Care Procedures MS DEBRIDEMENT SUBCUTANEOUS TISSUE 1ST 20 SQ CM/< MS DEBRIDEMENT MUSCLE &/FASCIA 1ST 20 SQ CM/< MS DEBRIDEMENT BONE 1ST 20 SQ CM/< MS DEBRIDEMENT SUBCUTANEOUS TISSUE EA ADDL 20 SQ CM MS DEBRIDEMENT MUSCLE &/FASCIA EA ADDL 20 SQ CM MS DEBRIDEMENT BONE EACH ADDITIONAL 20 SQ CM MS DEBRIDEMENT OPEN WOUND FIRST 20 SQ CM/< MS DEBRIDEMENT OPN WND EA ADDL 20 SQ CM/PRT THEREOF [facility] Wound Care Center [place] [address] [place] [address] Phone: tel: fax: Referral ID Status Reason Start Date Expiration Date Visits Requested Visits Authorized [id number] Authorization Not Needed Specialty Services Required 5 01/08/2026 99 99 Encounter Details Date Type Department Care Team (Latest Contact Info) Description 07/30/2025 12:45 PM EST - 07/30/2025 11:59 PM EST Hospital Encounter [facility] Wound Care Center [place] [address] [place] [address] Cristi Pelletier, DPM [address] [facility] [address] [place] [address] Stage III pressure ulcer of left heel (HCC) (Primary Dx) Discharge Disposition: Home or Self Care Social History Tobacco Use Types Packs/Day Years Used Date Smoking Tobacco: Former Cigarettes 0.3 40 0 12/26/1981 - 12/26/2021 Passive Smoke Exposure: Past Smokeless Tobacco: Never Alcohol Use Standard Drinks/Week Comments Not Currently 0 (1 standard drink = 0.6 oz pur e alcohol) [facility] Utilities Answer Date Recorded In the [...] Date Recorded PHQ-2 Total Score 0 12/28/2024 [facility] [place] [facility] Occupat ional [facility] - Occupational Stress [...] things needed for daily living? No 05/29/2023 [facility] IP Transportation Answer D ate [...] Sign Reading Time Taken Comments Blood Pressure 137/73 07/30/2025 12:53 PM EST Pulse 78 07/30/2025 12:53 PM EST Temperature 36.1 C (96.9 F) 07/30/2025 12:53 PM EST Respiratory Rate 20 07/30/2025 12:53 PM EST Oxygen Saturation - - Inhaled Oxygen Concentration [...] days. fluticasone propionate (FLONASE) 50 mcg/actuation Nasl [place], Suspension 1 spay each nostril twice daily [...] EDT 06/11/2023 oxymetazoline (AFRIN) 0.05 % Nasl [place], Non-Aerosol 1 [place] by Nasal route as needed for Congestion [...] Progress Notes * Cristi Pelletier DPM - 07/30/2025 12:45 PM EST Date of Visit:07/30/2025 Progress Note HPI Ashley Ding is a 60 y.o. year old female patient who presents today for wound evaluation and follow-up. 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 [...] Surgeon: Jabari Hill DPM; Location: [facility] MAIN OR; Service: Orthopedics FEMUR FRACTURE SURGERY Right right femur fx repair FOOT SURGERY FOOT SURGERY Left 12/23/2022 Left foot heel and second and third toe debridement with application of skin graft substitute. ; Surgeon: Jabari Hill DPM; Location: [facility] MAIN OR; Service: Orthopedics FOOT SURGERY Left 02/10/2023 Surgeon: Jabari Hill DPM; Location: [facility] MAIN OR; Service: Orthopedics FOOT SURGERY Left 06/06/2023 left FOOT TRANSMETATARSAL amputation; Surgeon: Jabari Hill DPM; Location: [facility] MAIN OR; Service: Podiatry HAMMER TOE SURGERY Left 06/15/2022 Left foot Correction of hammer toe deformity with arthroplasty second and third toe. Left foot Application of skin graft substitute.; Surgeon: Jabari Hill DPM; Location: [facility] MAIN OR; Service: Podiatry HIP [...] IR REVAS FEM POP ART UNILAT W FOCUSING MACHINE OPERATOR 03/13/2022 IR REVAS FEM POP ART UNILAT W FOCUSING MACHINE OPERATOR 03/13/2022 Kashif Wong MD [facility] IR IR REVAS FEM POP ART UNILAT W FOCUSING MACHINE OPERATOR 06/02/2023 IR REVAS FEM POP ART UNILAT W FOCUSING MACHINE OPERATOR 06/02/2023 Vishnu Penn MD [facility] IR IR REVAS FEM POP ART UNILAT W FOCUSING MACHINE OPERATOR 12/28/2024 IR REVAS FEM POP ART UNILAT W FOCUSING MACHINE OPERATOR 12/28/2024 Vishnu Penn MD [facility] [...] Surgeon: Jabari Hill DPM; Location: [facility] MAIN OR; Service: Orthopedics SKIN GRAFT Left 06/15/2022 Surgeon: Jabari Hill DPM; Location: [facility] MAIN OR; Service: Podiatry SKIN GRAFT Left 12/23/2022 . ; Surgeon: Jabari Hill DPM; Location: [facility] MAIN OR; Service: Orthopedics SKIN GRAFT 02/10/2023 Surgeon: Jabari Hill DPM; Location: [facility] MAIN OR; Service: Orthopedics TOE AMPUTATION Left 02/10/2023 Left foot second toe amputation, Left foot excisional debridement with application of skin graft substitute; Surgeon: Jabari Hill DPM; Location: [facility] MAIN OR; Service: Orthopedics TOE AMPUTATION Left 05/19/2023 Left foot, amputation of third toe. Left foot, wound debridment application. Left foot, skin graft substitute. Left foot wound debridment closure.; Surgeon: Jabari Hill DPM; Location: [facility] MAIN OR; Service: Orthopedics Current [...] -- (Patient not taking: Reported on 07/16/2025) apixaban (ELIQUIS) 5 mg Oral Tablet Take [...] days. fluticasone propionate (FLONASE) 50 mcg/actuation Nasl [place], Suspension 1 spay each nostril twice daily [...] taking: Reported on 07/16/2025) 30 Tablet 0 oxymetazoline (AFRIN) 0.05 % Nasl [place], Non-Aerosol 1 [place] by Nasal route as needed for Congestion [...] Myalgia Ezetimibe Myalgia Rosuvastatin Myalgia Simvastatin Myalgia Kbhwdui-Udl-Pfp Reductase Inhibitors Other (See Comments) Joint pain Codeine Itching nausea Hydrocodone Itching nausea Phenergan [Promethazine] Other (See Comments) Made legs restless And also very sleepy ROS See HPI for further details. Relevant review of systems otherwise negative. Physical Exam Vitals: 07/30/25 1253 BP: 137/73 Pulse: 78 Resp: 20 Temp: 96.9 ??F (36.1 ??C) TempSrc: Forehead Unable to palpate the DP and PT pulses Previously was able to palpate at least 1 Concern for reocclusion Ulcer Progress and Procedure Please refer to the LDA for details of ulcer progress and procedure. Ulcer evaluated left plantar posterior heel to subcutaneous tissue No gross evidence of infection No abscess or sinus formation No fluctuance No malodor No ascending cellulitis or lymphangitis No gross necrosis of wound edges or base Wound bed appears viable Evaluation of pedal pulses indicates that the dorsalis pedis and posterior tibial pulses are not palpable. Assessment and Plan Ashley was seen today for wound check. Diagnoses and all orders for this visit: Stage III pressure ulcer of left heel (HCC) - AMB REFERRAL TO VASCULAR SURGERY - [facility] PRIMARY DRESSING - MS DEBRIDEMENT SUBCUTANEOUS TISSUE 1ST 20 SQ CM/< [...] to continue unabated. Discussed measures to offload Referral to vascular surgery for possible additional interventions to the left LE documented in this encounter Miscellaneous Notes * Patient Instructions - Rosmery Cotto RN - 07/30/2025 12:45 PM EST HOME-CARE INSTRUCTIONS FOLLOWING YOUR WOUND CARE VISIT: Please thoroughly read through your after visit summary for your Home-Care instructions related to your visit with us. Our wound care clinic team strives to heal your wound as quickly as possible with you as a huge part of that team. Phone numbers are listed at the end of your paperwork for who tocall if you have any issues at home. [...] able to be completed the same day. Late arrival policy: In order to accommodate seeing all of our patients as timely as possible, patients arriving more than 15 minutes past their scheduled appointment time will be rescheduled for thefollowing week with their provider. If a dressing change is required (compression wrap, graft, etc.) and a patient is late-the visit can be scheduled at the end of that clinic, or another day that week. If you know you will be late for an appointment, please call the wound care center so we can direct you accordingly about being rescheduled. Follow up in the Wound Care Center in [address] Pelletier A referral has been placed to Dr Penn. Left heel- collagen, adaptic overlay, 4x4, roll gauze, every other day. 03/26 [facility] has been contacted to obtain your wound [...] feel free to reach out to our online community manager, Hanna Riggs at [phone] for any discussion. WHO TO CALL FOR PROBLEMS: Please call the OP wound care center with any problems or issues you may have after your visit or though the week. Each patient is assigned a family caseworker who can assist with issues you may be having. Individual office numbers are listed below. Press 1 for immediate or schedule needs, press 2 for the nursing line. The nurse line is for non-emergent needs and will be answered within 24 hours duringbus days. If you have a more immediate concern, press option #1. Office numbers: [facility]-[phone] [place]-[phone] [place]- [phone] Our offices do not have an on-call provider. If you have emergent needs after hours please contact your primary care provider. You may also utilize the [place] Nurse NOW Helpline: 5-136-1LHV-NOW for after-hours needs to get in contact with a nurse for assistance. * Addendum Note - Rosmery Cotto RN - 07/30/2025 12:45 PM ESTEncounter addended by: Rosmery Cotto RN on: 07/31/2025 8:05 AM Actions taken: Patient Goal modified, Flowsheet accepted, Charge Capture section accepted documented in this encounter Plan of Treatment Upcoming Encounters Date Type Department Care Team (Late st Contact Info) Description 09/03/2025 1:15 PM EST Appointment [facility] Wound Care Center [facility] [address] [facility] [place] [address] Cristi Pelletier DPM [address] [place] [address] 09/12/2025 10:00 AM EST Appointment [facility] [place] [address] Vishnu Penn MD [address] [place] [address] [place] [address] 11/12/2025 1:30 PM EST Appointment [facility] [address] [place] [id number] January, Nette Rand APRN [address] [place] [address] 11/12/2025 2:40 PM EST Office Visit [facility] [address] [facility] [address] [place] [address] January, Nette Rand APRN [address] [place] [address] [address] [place], [place] [id number] Scheduled Orders Name Type Priority Associated Diagnoses Orde r Schedule MS DEBRIDEMENT SUBCUTANEOUS TISSUE 1ST 20 SQ CM/< MS Charge Routine Stage III pressure ulcer of left heel (HCC) Ordered: 07/30/2025 Scheduled Referrals Name Type Priority Associated Diagnoses Orde r Schedule AMB REFERRAL TO VASCULAR SURGERY Outpatient Referral Routine Stage III pressure ulcer of left heel (HCC) Ordered: 07/30/2025 documented as of this encounter Goals Goal Patient Goal Type Associated Problems Recent Progress Patient-Stated? Author Wound Healing General Not on track(2024 1:16 PM EST) Tsering Doran, ROSANNE Note: Wound Care Goals [...] % ointment Topical, ONCE, 1 dose, On Wed07/30/25 at 1300, Application site: foot Given 07/30/2025 12:57 PM EST documented in this encounter Orders Medications Ordered That Daniel ht Not Have Been Administered Count Last Ordered Date First Ordered Date lidocaine (XYLOCAINE) 5 % ointment 1 2024 Nursing Count Last Ordered Date First Orde red Date AMB [facility] PRIMARY DRESSING 1 07/30/2025 documented in this encounter Care Teams Spine Specialist Relationship Specialty Start Date End Date William Hunter MD [address] [place] [address] PCP - General Internal Medicine-Adolescent Medicine 05/28/23 González Gotti MD [address] [place] [address] [place] [id number] Consulting Physician Internal Medicine - Clinical Cardiac Electrophysiology 04/05/17 Cristi Cleaning MD [address] [place] [address] [place] [id number] Physician Internal Medicine-Cardiovascular Disease 04/05/17 documented as of this encounter
--- OUTSIDE RECORDS SUMMARY | 2025-08-13 12:41 | XMS_ITS | Encounter Summary ---
Author Organization [place] [address] Care Team Providers Care Greige Goods Inspector Name Role Phone González Gotti MD Unavailable [phone] Cristi Cleaning MD Unavailable [phone] William Hunter MD Primary Care Provider [phone] Reason for Referral * In Office Procedure (Routine) - Pending Review Specialty Diagnoses / Procedures Referred By Contac t Referred To Contact Diagnoses 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) Stage III pressure ulcer of left heel (HCC) Procedures OK DEBRIDEMENT SUBCUTANEOUS TISSUE 1ST 20 SQ CM/< Cristi Pelletier DPM [address] [facility] [address] [place] [address] Phone: tel: fax: Referral ID Status Reason Start Date Expiration Date V isits Requested Visits Authorized [id number] Pending Review 08/16/2025 08/16/2026 1 1 * (Routine) - Pending Review Specialty Diagnoses / Procedures Referred By Contac t Referred To Contact Diagnoses Stage III pressure ulcer of left heel (HCC) Procedures [facility] PRIMARY [facility] Cristi Pelletier DPM [address] [place] [address] Phone: tel: fax: Referral ID Status Reason Start Date Expiration Date V isits Requested Visits Authorized [id number] Pending Review 08/13/2025 08/13/2026 1 1 Reason for Visit * Reason [...] WND EA ADDL 20 SQ CM/PRT THEREOF [facility] [address] [place] [address] Phone: tel: fax: Referral ID Status Reason Start Date Expiration Date Visits Requested Visits Authorized [id number] Authorization Not Needed Specialty Services Required 5 01/08/2026 99 99 Encounter Details Date Type Department Care Team (Latest Contact Info) Description 08/13/2025 12:41 PM EST - 08/13/2025 11:59 PM EST Hospital Encounter [facility] [address] [place] [address] Cristi Pelletier DPM [address] [facility] [address] [place] [address] Stage III pressure ulcer of left heel (HCC) (Primary Dx); 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) Discharge Disposition: Home or Self Care Social History Tobacco Use Types Packs/Day Years Used Date Smoking Tobacco: Former Cigarettes 0.3 40 0 12/26/1981 - 12/26/2021 Passive Smoke Exposure: Past Smokeless Tobacco: Never Alcohol Use Standard Drinks/Week Comments Not Currently 0 (1 standard drink = 0.6 oz pur e alcohol) [facility] Utilities Answer Date Recorded In the past 12 months has [employer] electric, gas, oil, or water company threatened to shut off services in your home? No 12/28/2024 Overall Financial Resource Strain (CARDIA) Answe r Date Recorded How hard is it for you to pa y for the very basics like food, housing, medical care, and heating? Not hard at all 12/28/2024 PHQ-2 Answer Date Recorded PHQ-2 Total Score 0 12/28/2024 [facility] Occupational Stress Questionnaire Answer [...] things needed for daily living? No 05/29/2023 [facility] IP Transportation Answer D ate Recorded [...] Sign Reading Time Taken Comments Blood Pressure 133/74 08/13/2025 12:49 PM EST Pulse 71 08/13/2025 12:49 PM EST Temperature 36.3 C (97.3 F) 08/13/2025 12:49 PM EST Respiratory Rate 18 08/13/2025 12:49 PM EST Oxygen Saturation - - Inhaled [...] days. fluticasone propionate (FLONASE) 50 mcg/actuation Nasl Garland, Suspension 1 spay each nostril twice daily [...] EDT 06/11/2023 oxymetazoline (AFRIN) 0.05 % Nasl Garland, Non-Aerosol 1 Garland by Nasal route as needed for Congestion [...] Progress Notes * Cristi Pelletier DPM - 08/13/2025 12:45 PM EST Date of Visit:08/13/2025 Progress Note HPI Ashley Ding is a 60 y.o. year old female patient who presents today for wound evaluation and follow-up. Daily dressing change Scheduled with Dr Penn in the next 2-3 weeks for review and possible vascular interventions Past Medical History: Diagnosis Date Anesthesia complication only with phenergan, alarming how long it takes her to wake up Asthma Bradycardia CAD (coronary artery disease) Cardiac pacemaker [facility] Dual PPM 11/05/2016 - Dr. Cleaning Chronic systolic heart failure ([facility]) COPD (chronic obstructive pulmonary disease) ([facility]) Depression with anxiety Emphysema, unspecified ([facility]) Essential hypertension Headache Heartburn History of cardiac cath 03/23/2017 Stent placed in Right leg 03/23/2017 HLD (hyperlipidemia) Hypertension ME (myocardial infarction) ([facility]) 06/2016 Pacemaker Post-operative nausea and vomiting Sinus node dysfunction ([facility]) 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 Cleaning STEMI (ST elevation myocardial infarction) ([facility]) STEMI with 3 NORI to RCA Systolic heart failure ([facility]) 02/2017 ECHO, EF 25% Past Surgical History: Procedure Laterality Date CARDIAC CATHETERIZATION Right 03/23/2017 stent placed in right leg CARDIAC PACEMAKER PLACEMENT 11/05/2016 SJM Dual PPM COLONOSCOPY CORONARY ANGIOPLASTY WITH STENT PLACEMENT 06/2016 x3 DEBRIDEMENT Left 05/19/2023 .; Surgeon: Jabari Hill DPM; Location: [facility] MAIN OR; Service: Orthopedics FEMUR FRACTURE SURGERY Right right femur fx repair FOOT SURGERY FOOT SURGERY Left 12/23/2022 Left foot heel and second and third toe debridement with application of skin graft substitute. ; Surgeon: Jabari Hill DPM; Location: [facility] MAIN OR; Service: Orthopedics FOOT SURGERY Left 02/10/2023 Surgeon: Jabari Hill DPM; Location: [facility] MAIN OR; Service: Orthopedics FOOT SURGERY Left 06/06/2023 left FOOT TRANSMETATARSAL amputation; Surgeon: Jabari Hill DPM; Location: [facility] MAIN OR; Service: Podiatry HAMMER TOE SURGERY Left 06/15/2022 Left foot Correction of hammer toe deformity with arthroplasty second and third toe. Left foot Application of skin graft substitute.; Surgeon: Jabari Hill DPM; Location: [facility] MAIN OR; Service: Podiatry HIP SURGERY [...] IR REVAS FEM POP ART UNILAT W TOP CLEANER 03/13/2022 IR REVAS FEM POP ART UNILAT W TOP CLEANER 03/13/2022 Kashif Wong MD EDG IR IR REVAS FEM POP ART UNILAT W TOP CLEANER 06/02/2023 IR REVAS FEM POP ART UNILAT W TOP CLEANER 06/02/2023 Vishnu Penn MD EDG IR IR REVAS FEM POP ART UNILAT W TOP CLEANER 12/28/2024 IR REVAS FEM POP ART UNILAT W TOP CLEANER 12/28/2024 Vishnu Penn MD EDG IR [...] 05/19/2023 .; Surgeon: Jabari Hill DPM; Location: [facility] MA[facility] OR; Service: Orthopedics SKIN GRAFT Left 06/15/2022 Surgeon: Jabari Hill DPM; Location: [facility] MAIN OR; Service: Podiatry SKIN GRAFT Left 12/23/2022 . ; Surgeon: Jabari Hill DPM; Location: [facility] MA[facility] OR; Service: Orthopedics SKIN GRAFT 02/10/2023 Surgeon: Jabari Hill DPM; Location: [facility] OR; Service: Orthopedics TOE AMPUTATION Left 02/10/2023 Left foot second toe amputation, Left foot excisional debridement with application of skin graft substitute; Surgeon: Jabari Hill DPM; Location: [facility] OR; Service: Orthopedics TOE AMPUTATION Left 05/19/2023 Left foot, amputation of third toe. Left foot, wound debridment application. Left foot, skin graft substitute. Left foot wound debridment closure.; Surgeon: Jabari Hill DPM; Location: [facility] OR; Service: Orthopedics Current Outpatient [...] days. fluticasone propionate (FLONASE) 50 mcg/actuation Nasl Garland, Suspension 1 spay each nostril twice daily [...] Tablet 0 oxymetazoline (AFRIN) 0.05 % Nasl Garland, Non-Aerosol 1 Garland by Nasal route as needed for Congestion [...] Myalgia Ezetimibe Myalgia Rosuvastatin Myalgia Simvastatin Myalgia Zebmdkf-Koc-Yhd Reductase Inhibitors Other (See Comments) Joint pain Codeine Itching nausea Hydrocodone Itching nausea Phenergan [Promethazine] Other (See Comments) Made legs restless And also very sleepy ROS See HPI for further details. Relevant review of systems otherwise negative. Physical Exam Vitals: 08/13/25 1249 BP: 133/74 Pulse: 71 Resp: 18 Temp: 97.3 ??F (36.3 ??C) TempSrc: Forehead Unable to palpate the [...] ulcer of left heel (HCC) - [facility] PR[facility] - [place] DEBRIDEMENT SUBCUTANEOUS TISSUE 1ST 20 SQ CM/< 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) - OK DEBRIDEMENT SUBCUTANEOUS TISSUE 1ST 20 [...] up 1 week Sharp excisional debridement left heel; utilizing curette down to and including subcutaneous tissue<20 sq cm with bleeding and subsequent hemostasis. [...] to continue unabated. Discussed measures to offload Await possible interventions per vascular surgery documented in this encounter Miscellaneous Notes * Patient Instructions - Balbina Tong RN - 08/13/2025 12:45 PM EST HOME-CARE INSTRUCTIONS FOLLOWING YOUR [...] 4x4, roll gauze, every other day. 03/26 [facility] has been contacted to obtain your wound [...] to reach out to our health unit coordinator, Hanna Riggs at [phone] for any discussion. WHO TO CALL FOR PROBLEMS: Please call the wound care center with any problems or issues you may have after your visit or though the week. Each patient is assigned a director case management who can assist with issues you may be having. Individual office numbers are listed below. Press 1 for immediate or schedule needs, press 2 for the nursing line. The nurse line is for non-emergent needs and will be answered within 24 hours duringbusiness days. If you have a more immediate concern, press option #1. Office numbers: [phone] Bailey [phone] [facility] [phone] Our offices do not have an on-call provider. If you have emergent needs after hours please contact your primary care provider. You may also utilize the [place] Nurse NOW Helpline: 6-993-6DDW-NOW for after-hours needs to get in contact with a nurse for assistance. documented in this encounter Plan of Treatment Upcoming Encounters Date Type Department Care Team (Late st Contact Info) Description 09/03/2025 1:15 PM EST Appointment [facility] [address] [place] [address] Cristi Pelletier, ROGER [address] [place] [address] [address] [place] [address] 09/12/2025 10:00 AM EST Appointment [facility] IR [facility] [place] [address] Vishnu Penn MD [address] [place] [address] 11/12/2025 1:30 PM EST Appointment [facility] [address] [place] [address] [address] [place] [address] May, Nette Rand POLICE GUARD [address] [place] [address] [address] [place] [address] 11/12/2025 2:40 PM EST Office Visit [facility] [address] [place] [address] [address] [place] [address] MayNette APRN [address] [place] [address] [address] [place] [address] Scheduled Orders Name Type Priority Associated Diagnoses Orde r Schedule OK DEBRIDEMENT SUBCUTANEOUS TISSUE 1ST 20 SQ CM/< OK Charge Routine 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) Stage III pressure ulcer of left heel (HCC) Ordered: 08/16/2025 documented as of this encounter Goals Goal [...] left heel (HCC)- Primary Pressure ulcer, heel 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) documented in this encounter Administered Medications Inactive Administered Medications - up to 1 most recent administrations Medication Order MAR Action Action Date Dose Rate Site lidocaine (XYLOCAINE) 5 % ointment Topical, ONCE, 1 dose, On Wed08/13/25 at 1300, Application site: FOOT Given 08/13/2025 12:56 PM EST documented in this encounter Orders Medications Ordered That Daniel ht Not Have Been Administered Count Last Ordered Date First Ordered Date lidocaine (XYLOCAINE) 5 % ointment 1 2024 Nursing Count Last Ordered Date First Orde red Date [facility] PRIMARY DRESSING 1 08/13/2025 documented in this encounter Care Teams Greige Goods Inspector Relationship Specialty Start Date End Date William Hunter MD [address] [place] [address] [place] [address] PCP - General Internal Medicine-Adolescent Medicine 05/28/23 González Gotti MD [address] [place] [address] [place] [address] Consulting Physician Internal Medicine - Clinical Cardiac Electrophysiology 04/05/17 Cristi Cleaning MD [address] [place] [address] [place] [address] Physician Internal Medicine-Cardiovascular Disease 04/05/17 documented as of this encounter
--- OUTSIDE RECORDS SUMMARY | 2025-08-21 13:45 | XMS_ITS | Encounter Summary ---
Author Organization [place] [address] Care Team Providers Care Analyzer Sales Name Role Phone González Gotti MD Unavailable [phone] Cristi Cleaning MD Unavailable [phone] William Hunter MD Primary Care Provider [phone] Reason for Referral * Interventional Radiology (Routine) - Authorized Specialty Diagnoses / Procedures Referred By Contac t Referred To Contact Radiology Diagnoses PAD (peripheral artery disease) Procedures IR ANGIOGRAM FEMORAL ARTERIO SHIFT Vishnu Penn MD [address] [place] [address] [address] [place] [address] Phone: tel: fax: Referral ID Status Reason Start Date Expiration Date V isits Requested Visits Authorized [id number] Authorized 08/21/2025 08/21/2026 1 1 Encounter Details Date Type Department Care Team (Late st Contact Info) Description 08/21/2025 1:45 PM EST Office Visit SEP Vascular Surg Edg 20 [facility] [address] [place] [phone] Vishnu Penn MD [address] [facility] [address] [place] [address] PAD (peripheral artery disease) (Primary Dx); Small vessel disease Social History Tobacco Use Types Packs/Day Years Used Date Smoking Tobacco: Former Cigarettes 0.3 40 0 12/26/1981 - 12/26/2021 Passive Smoke Exposure: Past Smokeless Tobacco: Never Tobacco Cessation:Counseling Given: Not Answered Alcohol Use Standard Drinks/Week Comments Not Currently 0 (1 standard drink = 0.6 oz pur e alcohol) [facility] Utilities Answer Date Recorded In the [...] Date Recorded PHQ-2 Total Score 0 12/28/2024 [facility] - Occupational Stress [...] things needed for daily living? No 05/29/2023 [facility] IP Transportation Answer D ate [...] Sign Reading Time Taken Comments Blood Pressure 122/70 08/21/2025 2:22 PM EST Pulse 70 08/21/2025 2:20 PM EST Temperature 36.5 C (97.7 F) 08/21/2025 2:20 PM EST Respiratory Rate - - Oxygen Saturation - - Inhaled Oxygen Concentration - - Weight 70.3 kg (155 lb) 08/21/2025 2:20 PM EST Height 162.6 cm (5' 4 ) 08/21/2025 2:20 PM EST Body Mass Index 26.61 08/21/2025 2:20 PM EST documented in this encounter Functional Status * [...] Redd Mcneill RN documented in this encounter Patient Instructions * Attachments The following attachments cannot be sent through Care Everywhere. * Angiography (Chinese) documented in this encounter Progress Notes * Vishnu Penn MD - 08/21/2025 1:45 PM EST Images from the original note were not included. Subjective: Ms. Ding is here for a scheduled routine follow-up visit History of Present Illness The patient is a 60 y.o. female: Peripheral Arterial Disease Complains of LLE pain with ambulation at 1 blocks. Pain is primarily located in the left heel. Complains of open wounds. Reports history of previous vascular procedures on legs. Wound Check Wound is located on the left lower extremity.This has been present for 3 years off and on. Complains of localized pain. She is being followed at wound care. Takes ASA, Plavix, and Eliquis daily. Previous [...] no changes except as noted. Past Medical History[1] Patient Active Problem List Diagnosis Date Noted Small vessel disease 03/27/2025 Claudication of right lower extremity 02/26/2025 Stage III pressure ulcer of left heel (HCC) 01/09/2025 Critical limb ischemia of both lower [...] situ 12/07/2023 Insomnia 12/07/2023 Kidney stone 12/07/2023 correction current use of anticoagulant therapy 12/07/2023 Neuropathy 12/07/2023 Palpitations 12/07/2023 Atrial fibrillation with rapid ventricular response ([facility]) 12/07/2023 Seasonal allergic rhinitis 12/07/2023 Sinusitis 12/07/2023 Stented coronary artery 12/07/2023 Typical angina 12/07/2023 Ventricular fibrillation ([facility]) 12/07/2023 Ventricular fibrillation seen on genomics scientist ([facility]) 12/07/2023 [...] product 03/05/2022 COPD (chronic obstructive pulmonary disease) ([facility]) HLD (hyperlipidemia) Hypertension Emphysema, unspecified CAD (coronary artery disease) Cardiac pacemaker History of cardiac cath Depression with anxiety Essential hypertension Chronic systolic heart failure ([facility]) Sinus node dysfunction ([facility]) Bradycardia Surgical History[2] Family History[3] Social History Tobacco Use Smoking status: Former Current packs/day: 0.00 Average packs/day: 0.3 packs/day for 40.0 years (10.0 ttl pk-yrs) Types: Cigarettes Start date: 12/26/1981 Quit date: 12/26/2021 Years since quittin.6 Passive exposure: Past Smokeless tobacco: Never Substance [...] DAILY fluticasone propionate (FLONASE) 50 mcg/actuation Nasl Cody, Suspension 1 spay each nostril twice daily gabapentin (NEURONTIN) 300 mg, 2 TIMES DAILY hydroCHLOROthiazide (MICROZIDE) 25 mg, DAILY hydrOXYzine (ATARAX) 25 mg Oral Tablet 1 tab(s) orally 2 times a day for 30 days isosorbide mononitrate (IMDUR) 120 mg Oral Tablet Sustained Release 24 hr TAKE ONE TABLET BY MOUTH EVERY DAY FOR CHEST PAINS JARDIANCE 10 mg, DAILY Magnesium 200 mg metoprolol succinate ER (TOPROL-XL) 150 mg, 2 TIMES DAILY multivitamin with folic acid (THERAGRAN) 400 mcg Oral Tablet 1 Tablet, DAILY nitroGLYCERIN (NITROSTAT) 0.4 mg, EVERY 5 MIN PRN oxyCODONE-acetaminophen (PERCOCET) 5-325 mg Oral Tablet 1-2 Tablets, Oral, EVERY 4 HOURS PRN oxymetazoline (AFRIN) 0.05 % Nasl Cody, Non-Aerosol 1 Cody, Nasal, PRN pantoprazole (PROTONIX) 40 mg, DAILY Ranolazine 1,000 mg Oral Tablet Sustained Release 12 hr 1 Tablet, 2 TIMES DAILY REPATHA SURECLICK 140 mg, EVERY 14 DAYS rOPINIRole (REQUIP) 1 mg, NIGHTLY VITAMIN B COMPLEX ORAL 1 Tablet, DAILY Allergies[4] Review of Systems Constitutional: Negative for appetite change, chills, fatigue and fever. Respiratory: Negative for chest tightness and shortness of breath. Cardiovascular: Negative for chest pain and leg swelling. Musculoskeletal: Negative for gait problem. Skin: Negative for color change and wound. All other systems reviewed and are negative. Objective: Vitals: 08/21/25 1420 08/21/25 1422 BP: 124/82 122/70 BP Location: Left arm Left arm Patient Position: Sitting Sitting Pulse: 70 Temp: 97.7 ??F (36.5 ??C) TempSrc: Forehead Weight: 155 lb (70.3 kg) Height: 5' 4 (1.626 m) Body mass index is 26.61 kg/m??. Physical Exam Vitals reviewed. Constitutional: Appearance: [...] side. Comments: Left foot warm and pink Pulmonary: Effort: Pulmonary effort is normal. No [...] Judgment normal. Imaging: Peripheral Arterial Disease Imaging AL US LOWER EXTREMITY ARTERIAL DUPLEX COMPLETE Result Date: 07/20/2025 Conclusions * Bilateral tibial vessel disease. * Right RODOLFO (0.89) is in the mild claudication range. * Right TBI (0.37) below normal limits. * Right great toe pressure is above the healing index. * Left RODOLFO (0.61) is in the severe claudication range. * Unable to obtain left great toe pressure and TBI due to the prior transmetatarsal amputation. Assessment and Plan: Diagnoses and all orders for this visit: PAD (peripheral artery disease) - IR ANGIOGRAM FEMORAL ARTERIO SHIFT; Future Small vessel disease Ms. Ding is here for follow up of PAD. She has a wound left lower heel she follows with wound care. Reviewed arterial duplex and images dated 07/20/25. RABI: 0.89. LABI: 0.61. Recommend an angiogram. Discussed the procedure, risks, benefits and alternatives. Stop Eliquis 3 days prior to procedure. Continue on ASA and Plavix. Note written by JOSEPH Vick acting as scribe for Vishnu Penn MD. POD: Dr. Pelletier Cardio: Dr. Cleaning Additional Assessment and Plan: History of Present Illness The patient, a 60-year-old female with a history of lower extremity peripheral arterial disease (PAD) and ulceration, was last evaluated on 03/27/2025. She is currently under the care of Dr. Pelletier at the wound care center. The patient has undergone a lower extremity TMA and reports diminished peripheral pulses in her leg, particularly at the dorsum. Patient does have a wound in the heel. Patient reports healing has stagnated. An ultrasound examination revealed arterial occlusion. She experiences claudication, notably exacerbated by pressure,and recalls a previous episode of pain during ambulation, described as a pulling sensation. The affected leg is noted to be slightly cooler than normal. Her vp compliance, Dr. Cleaning, advised discontinuation of aspirin therapy due to ulceration; however, the patient observed a notable difference up on cessation. She is currently prescribed aspirin, clopidogrel (Plavix), and apixaban (Eliquis). PAST SURGICAL HISTORY: Lower extremity amputation. Physical Exam - Cardiovascular: No pedal pulse detected in the left foot - Extremities: No pedal pulse detected in the left foot Results - Imaging: - Arterial study (07/20/2025): Right RODOLFO of 0.89 and left RODOLFO of 0.61 with good flow to the left SHAMIR and GROUP HOME WORKER Assessment & Plan 1. Lower extremity PAD with ulceration: Chronic. RODOLFO 0.61 on 07/20/2025. No pedal pulse on the left. Patient will wound healing has stagnated - Angiogram planned to assess and potentially alleviate blockage - Discontinue Eliquis 3 days prior to procedure - Continue aspirin and Plavix - Risks, benefits, and alternatives discussed - Procedure typically allows for same-day discharge Follow-up - Follow up after her angio The provider educated the patient (or legal home office representative) on the use of the ambient listening artificial intelligence tool, Ideabove. They were informed that this AI tool [...] of such information, the patient (or legal home office representative), and each individual in attendance with the patient, verbally consented to the use of the AI tool. I have reviewed this note and it accurately reflects my work and decisions made during this visit. Signed: Vishnu Penn MD This note was completed using voice recognition technology. Despite the director underwriter sales's best efforts to proof read, it may still contain unintended errors. Please call with questions. [1] Past Medical History: Diagnosis Date Anesthesia complication only with phenergan, alarming how long it takes her to wake up Asthma Bradycardia CAD (coronary artery disease) Cardiac pacemaker [facility] Dual PPM 11/05/2016 - Dr. Cleaning Chronic systolic heart failure (HCC) COPD (chronic obstructive pulmonary disease) (HCC) Depression with anxiety Emphysema, unspecified (HCC) Essential hypertension Headache Heartburn History of cardiac cath 03/23/2017 Stent placed in Right leg 03/23/2017 HLD (hyperlipidemia) Hypertension IL (myocardial infarction) ([facility]) 06/2016 Pacemaker Post-operative nausea and vomiting Sinus node dysfunction (HCC) 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 Cleaning STEMI (ST elevation myocardial infarction) ([facility]) STEMI with 3 NORI to RCA Systolic heart failure (HCC) 02/2017 ECHO, EF 25% [2] Past Surgical History: Procedure Laterality Date CARDIAC CATHETERIZATION Right 03/23/2017 stent placed in right leg CARDIAC PACEMAKER PLACEMENT 11/05/2016 SJM Dual PPM COLONOSCOPY CORONARY ANGIOPLASTY WITH STENT PLACEMENT 06/2016 x3 DEBRIDEMENT Left 05/19/2023 .; Surgeon: Jabari Hill DPM; Location: [facility] OR; Service: Orthopedics FEMUR FRACTURE SURGERY Right right femur fx repair FOOT SURGERY FOOT SURGERY Left 12/23/2022 Left foot heel and second and third toe debridement with application of skin graft substitute. ; Surgeon: Jabari Hill DPM; Location: [facility]; Service: Orthopedics FOOT SURGERY Left 02/10/2023 Surgeon: Jabari Hill DPM; Location: [facility]; Service: Orthopedics FOOT SURGERY Left 06/06/2023 left FOOT TRANSMETATARSAL amputation; Surgeon: Jabari Hill DPM; Location: [facility] OR; Service: Podiatry HAMMER TOE SURGERY Left 06/15/2022 Left foot Correction of hammer toe deformity with arthroplasty second and third toe. Left foot Application of skin graft substitute.; Surgeon: Jabair Hill DPM; Location: [facility]; Service: Podiatry HIP [...] IR REVAS FEM POP ART UNILAT W GROUP HOME WORKER 03/13/2022 IR REVAS FEM POP ART UNILAT W GROUP HOME WORKER 03/13/2022 Kashif Wong MD [facility]G IR IR REVAS FEM POP ART UNILAT W GROUP HOME WORKER 06/02/2023 IR REVAS FEM POP ART UNILAT W GROUP HOME WORKER 06/02/2023 Vishnu Penn MD [facility] IR IR REVAS FEM POP ART UNILAT W GROUP HOME WORKER 12/28/2024 IR REVAS FEM POP ART UNILAT W GROUP HOME WORKER 12/28/2024 Vishnu Penn MD EDG IR [...] 05/19/2023 .; Surgeon: Jabari Hill DPM; Location: [facility]; Service: Orthopedics SKIN GRAFT Left 06/15/2022 Surgeon: Jabari Hill DPM; Location: [facility]; Service: Podiatry SKIN GRAFT Left 12/23/2022 . ; Surgeon: Jabari Hill DPM; Location: [facility]; Service: Orthopedics SKIN GRAFT 02/10/2023 Surgeon: Jabari Hill DPM; Location: [facility]; Service: Orthopedics TOE AMPUTATION Left 02/10/2023 Left foot second toe amputation, Left foot excisional debridement with application of skin graft substitute; Surgeon: Jabari Hill DPM; Location: [facility]; Service: Orthopedics TOE AMPUTATION Left 05/19/2023 Left foot, amputation of third toe. Left foot, wound debridment application. Left foot, skin graft substitute. Left foot wound debridment closure.; Surgeon: Jabari Hill DPM; Location: [facility]; Service: Orthopedics [3] Family History Problem Relation Age of Onset Hypertension Mother Heart Disease Mother Cancer Mother Diabetes Father Hypertension Father Cancer Father Anesth Problems Neg Hx [4] Allergies Allergen Reactions Atorvastatin Myalgia Ezetimibe Myalgia Rosuvastatin Myalgia Simvastatin Myalgia Cnvfeng-Odq-Pmq Reductase Inhibitors Other (See Comments) Joint pain Codeine Itching nausea Hydrocodone Itching nausea Phenergan [Promethazine] Other (See Comments) Made legs restless And also very sleepy documented in this encounter Plan of Treatment Upcoming Encounters Date Type Department Care Team (Late st Contact Info) Description 09/03/2025 1:15 PM EST Appointment [facility] [place] [address] [place] [address] Cristi Pelletier DPM [address] [facility] [address] [place] [address] 09/12/2025 10:00 AM EST Appointment [facility] [place] [address] Vishnu Penn MD [address] [place] [address] [address] [place] [address] 11/12/2025 1:30 PM EST Appointment [facility] MED OFC VASCULAR [address] [facility] [address] [place] [address] January, Nette Rand, ASSET ACCOUNTANT [address] [facility] [address] [place], [place] [id number] 11/12/2025 2:40 PM EST Office Visit SEP Vascular Surg Edg [address] [facility] [address] [place] [address] JanuaryNette ASSET ACCOUNTANT [address] [facility] [address] [place], [place] [id number] Scheduled Orders Name Type Priority Associated Diagnoses Orde r Schedule IR ANGIOGRAM FEMORAL ARTERIO SHIFT Imaging Routine PAD (peripheral artery disease) 1 Occurrences starting 08/21/2025 until 08/21/2026 documented as of this encounter Goals Goal [...] Primary Unspecified disorders of arteries and arterioles Small vessel disease Peripheral vascular disease, unspecified documented in this encounter Care Teams Analyzer Sales Relationship Specialty Start Date End Date William Hunter MD [facility] [address] [place] [phone] PCP - General Internal Medicine-Adolescent Medicine 05/28/23 González Gotti MD [address] [place] [address] [place] [address] Consulting Physician Internal Medicine - Clinical Cardiac Electrophysiology 04/05/17 Cristi Cleaning MD [address] [place] [address] [place] [address] Physician Internal Medicine-Cardiovascular Disease 04/05/17 documented as of this encounter
--- NOTE | 2025-08-30 13:35 | US_ITS ---
PROCEDURE INFORMATION: Exam: US Left Breast, Complete Exam date and time: 08/30/2025 1:44 PM Age: 60 years old Clinical indication: Follow-up from prior for probably benign left breast mass. TECHNIQUE: Imaging protocol: Complete ultrasound of all four quadrants of the left breast and the retroareolar regions, including ultrasound of the axilla when performed. COMPARISON: No relevant prior studies available. FINDINGS: ULTRASOUND: Breast ultrasound findings: The left breast was evaluated with ultrasound. The previously seen region of probable fat necrosis at 11 o'clock was not visualized on today's exam. The remainder of the visualized left breast is unremarkable. IMPRESSION: No sonographic evidence of malignancy. Annual mammographic screening is recommended unless otherwise clinically indicated. ASSESSMENT: BI-RADS Category 1: Negative.
--- OUTSIDE RECORDS SUMMARY | 2025-08-30 13:37 | XMS_ITS | Clinical Summary ---
Author Organization Healthcare Address [address] [place] [address] Care Team Providers Care Rod Pointer Name Role Phone Fariha Henderson APRN Primary Care Provider [phone] Social History Tobacco Use Types Packs/Day Years Used Date Smoking Tobacco: Never Assessed Comments Unknown Sex and Gender Information Value Date Recorded Sex Assigned at Not on file Legal Sex Female 7:27 PM EDT Gender Identity Not on file Sexual Orientation Not on file Plan of Treatment Not on file Care Teams Rod Pointer Relationship Specialty Start Date End Date Fariha Henderson APRN [address] [place] [address] PCP - General 02/07/21
--- OUTSIDE RECORDS SUMMARY | 2025-08-30 13:37 | XMS_ITS | Encounter Summary ---
Author Organization [place] [address] Care Team Providers Care Elevator Technician Name Role Phone González Gotti MD Unavailable [phone] Cristi Cleaning MD Unavailable [phone] William Hunter MD Primary Care Provider [phone] Encounter Details Date Type Department Care Team (Late st Contact Info) Description 07/23/2025 Results Follow-Up SEP Podiatry [address] [place] [address] Cristi Pelletier, DPM [address] [place] [address] [address] [place] [address] [facility] LOWER EXTREMITY ARTERIAL DUPLEX COMPLETE Social History Tobacco Use Types Packs/Day Years Used Date Smoking Tobacco: Former Cigarettes 0.3 40 0 12/26/1981 - 12/26/2021 Passive Smoke Exposure: Past Smokeless Tobacco: Never Alcohol Use Standard Drinks/Week Comments Not Currently 0 (1 standard drink = 0.6 oz pur e alcohol) [facility] Utilities Answer Date Recorded In the [...] Date Recorded PHQ-2 Total Score 0 12/28/2024 [facility] - Occupational Stress [...] for daily living? No 05/29/2023 [facility] IP Transportation Answer D ate Recorded [...] Info) Description 09/03/2025 1:15 PM EST Appointment [facility] [address] [place] [address] Cristi Pelletier, ROGER [address] [place] [address] 09/12/2025 10:00 AM EST Appointment EDG IR [facility] [place] [address] Vishnu Penn MD [address] [place] [address] [place] [id number] 11/12/2025 1:30 PM EST Appointment [facility]C VASCULAR [address] [place] [address] [address] [place] [address] Nette Jalloh APRN [address] [place] [address] [address] 11/12/2025 2:40 PM EST Office Visit [facility]P Vascular Surg Edg [address] [place] [address] [place] [phone] Nette Jalloh APRN [address] [place] [address] documented as of this encounter Goals [...] on filedocumented in this encounter Care Teams Elevator Technician Relationship Specialty Start Date End Date William Hunter MD [facility] [place] [address] [place] [phone] PCP - General Internal Medicine-Adolescent Medicine 05/28/23 González Gotti MD [address] [place] [address] [place] [address] Consulting Physician Internal Medicine - Clinical Cardiac Electrophysiology 04/05/17 Cristi Cleaning MD [address] [facility] [address] [place], [place] [id number] Physician Internal Medicine-Cardiovascular Disease 04/05/17 documented as of this encounter
--- OUTSIDE RECORDS SUMMARY | 2025-08-30 13:37 | XMS_ITS | Encounter Summary ---
Author Organization Healthcare Address [address] [place] [address] Care Team Providers Care Circuit Rider Name Role Phone Fariha Henderson APRN Primary Care Provider [phone] Encounter Details Date Type Department Care Team (Late st Contact Info) Description 02/18/2022 [facility] [address] [place] [address] Jabari Goetz MD [address] [facility] [address] [place] [address] PAD (peripheral artery disease) (CMS/HCC) [...] disease documented in this encounter Care Teams Circuit Rider Relationship Specialty Start Date End Date Fariha Henderson APRN [address] [place] [address] PCP - General 02/07/21 documented as of this encounter
--- OUTSIDE RECORDS SUMMARY | 2025-08-30 13:37 | XMS_ITS | Encounter Summary ---
Author Organization [facility] [place] [address] Care Team Providers Care Pediatric Licensed Practical Nurse Name Role Phone González Gotti MD Unavailable [phone] Cristi Cleaning MD Unavailable [phone] William Hunter MD Primary Care Provider [phone] Encounter Details Date Type Department Care Team (Latest Contact Info) Description 08/21/2025 Travel Social History Tobacco Use Types Packs/Day Years Used Date Smoking Tobacco: Former Cigarettes 0.3 40 0 12/26/1981 - 12/26/2021 Passive Smoke Exposure: Past Smokeless Tobacco: Never Alcohol Use Standard Drinks/Week Comments Not Currently 0 (1 standard drink = 0.6 oz pur e alcohol) [facility] Utilities Answer Date Recorded In the past 12 months has [employer] electric, gas, oil, or water company threatened to shut off services in your home? No 12/28/2024 Overall Financial Resource Strain (CARDIA) Answe r Date Recorded How hard is it for you to pa y for the very basics like food, housing, medical care, and heating? Not hard at all 12/28/2024 PHQ-2 Answer Date Recorded PHQ-2 Total Score 0 12/28/2024 [employer] [place] [facility] Occupat ional Health - Occupational Stress [...] needed for daily living? No 05/29/2023 [facility] IP Transportation Answer D ate [...] Description 09/03/2025 1:15 PM EST Appointment [facility] Wound [facility] [address] [place] [address] Cristi Pelletier, DPM [address] [facility] [address] [place], [place] [id number] 09/12/2025 10:00 AM EST Appointment EDG IR [facility] [address] [place], [place] [id number] Vishnu Penn MD [address] [place] [address] [address] [place] [address] 11/12/2025 1:30 PM EST Appointment [facility] VASCULAR [address] [place] [address] [address] [place] [address] Nette Jalloh APRN [address] [place] [address] [id number] 11/12/2025 2:40 PM EST Office Visit [facility] V[facility] Surg [facility]g [address] [place] [address] [address] [place] [address] Nette Jalloh APRN [address] [place] [address] [id number] documented as of this encounter Goals Goal Patient Goal Type Associated Problems Recent Progress Patient-Stated? Author Wound Healing General Not on track(2024 1:16 PM EST) No Tsering Pollock RN Note: Wound Care Goals LEFT HEEL [...] on filedocumented in this encounter Care Teams Pediatric Licensed Practical Nurse Relationship Specialty Start Date End Date William Hunter MD [facility] [address] [place] [address] PCP - General Internal Medicine-Adolescent Medicine 05/28/23 González Gotti MD [address] [place] [address] [place] [address] Consulting Physician Internal Medicine - Clinical Cardiac Electrophysiology 04/05/17 Cristi Cleaning MD [address] [place] [address] [address] [place], [place] [id number] Physician Internal Medicine-Cardiovascular Disease 04/05/17 documented as of this encounter
--- OUTSIDE RECORDS SUMMARY | 2025-08-30 13:37 | XMS_ITS | Clinical Summary ---
Author Organization [facility] Address [address] [facility] [address] [place] [address] Phone Care Team Providers Care Refinery Operator Reforming Unit Name Role Phone González Gotti MD Unavailable [phone] Cristi Cleaning MD Unavailable [phone] William Hunter MD Primary Care Provider [phone] Allergies Active Allergy Reactions Criticality Noted Date Comments Atorvastatin Myalgia High 07/01/2023 Codeine Itching Low nausea Ezetimibe Myalgia High 07/01/2023 Hydrocodone Itching Low nausea Promethazine Other (See Comments) Low 06/12/2022 Made legs restless And also very sleepy Rosuvastatin Myalgia High 07/01/2023 Simvastatin Myalgia High 07/01/2023 Nzmacra-Ull-Hhu Reductase Inhibitors Other (See Comments) 01/02/2025 Joint [...] taking.Reason: Therapy Completed, Informant: Self/Patient, Reported on 08/21/2025 fluticasone propionate (FLONASE) 50 mcg/actuation Nasl [place], Suspension 1 spay each nostril twice daily 1 Each 3 3 Active oxymetazoline (AFRIN) 0.05 % Nasl [place], Non-Aerosol 1 [place] by Nasal route as needed for Congestion [...] different from the original. 03/05/22 [facility] #[id number] (as expected) Kashif Wong MD Problem Noted Date Diagnosed Date Small vessel disease 03/27/2025 Claudication of right lower extremity 02/26/2025 Stage III pressure ulcer of left heel 01/09/2025 Critical limb ischemia of both lower [...] situ 12/07/2023 Insomnia 12/07/2023 Kidney stone 12/07/2023 long term current use of anticoagulant therapy 0 12/07/2023 Neuropathy 12/07/2023 Palpitations 12/07/2023 Atrial fibrillation with rapid ventricular respo nse 12/07/2023 Seasonal allergic rhinitis 12/07/2023 Sinusitis 12/07/2023 Stented coronary artery 12/07/2023 Typical angina 12/07/2023 Ventricular fibrillation 12/07/2023 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 fibrillation 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 on 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 12/07/2023 Ventricular tachyarrhythmia 12/07/2023 Failed flap 06/28/2023 Skin flap necrosis 06/28/2023 Atherosclerosis of artery of extremity with ulce ration 06/02/2023 PAD (peripheral artery disease) 06/01/2023 S/P foot surgery 06/01/2023 Cellulitis of left lower extremity 05/28/2023 Open wound of left foot 04/26/2023 Overview (04/26/2023): Added automatically from request for surgery [id number] Hammertoe of left foot 06/08/2022 Overview (06/08/2022): Added automatically from request for surgery [id number] Pain in left foot 06/08/2022 Overview (06/08/2022): Added automatically from request for surgery [id number] Gangrene of left foot 06/08/2022 Overview (06/08/2022): Added automatically from request for surgery [id number] Vaping nicotine dependence, non-tobacco product 03/05/2022 COPD (chronic obstructive pulmonary disease) HLD (hyperlipidemia) Hypertension Emphysema, unspecified CAD (coronary artery disease) Cardiac pacemaker Overview (04/05/2017): DUSTIN Dual PPM 11/05/2016 History of cardiac cath Overview (04/05/2017): Stent placed in Right leg 03/23/2017 Depression with anxiety Essential hypertension Chronic systolic heart failure Sinus node dysfunction Overview (04/05/2017): DUSTIN Dual PPM 11/05/2016 - Dr. Cleaning Bradycardia Resolved Problems Problem Noted Date Diagnosed Date Resolved Date Non-pressure chronic ulcer o f skin of other sites with unspecified severity 12/07/2023 08/16/20 25 Pressure ulcer of left heel, stage 3 06/28/2023 01/28/2024 Chronic ulcer of left heel w ith necrosis of muscle 02/08/2023 06/01/2023 Overview (02/08/2023): Added automatically from request for surgery [id number] Osteomyelitis of second toe of left foot 02/05/2023 06/01/2023 Overview (02/05/2023): Added automatically from request for surgery [id number] Atherosclerosis of [place] of left lower extremity with ulceration 09/07/2022 06/01/20 23 Atherosclerosis of [place] of left lower extremity with gangrene 03/05/2022 06/01/2023 HI (myocardial infarction) 06/27/2016 0 06/01/2023 STEMI (ST elevation myocardial infarction) 06/01/2023 Overview (04/05/2017): STEMI with 3 NORI to RCA Foot ulceration, left, with necrosis of muscle 04/07/2024 Chronic toe ulcer, left, wit h necrosis of bone 06/01/2023 Encounters Date Type Department Care Team Description 08/21/2025 1:45 PM EST Office Visit [facility]urg [facility] [address] [facility] [address] [place] [phone] Vishnu Penn MD PAD (peripheral artery disease) (Primary Dx); Small vessel disease 08/21/2025 Travel 08/13/2025 12:41 PM EST - 08/13/2025 11:59 PM EST Hospital Encounter [facility] [place] [address] [place] [place] [address] Cristi Pelletier DPM Stage III pressure ulcer of left heel (HCC) (Primary Dx); 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) Discharge Disposition: Home or Self Care 07/30/2025 12:45 PM EST - 07/30/2025 11:59 PM EST Hospital Encounter [facility] [place] [address] [place] [place] [address] Cristi Pelletier DPM Stage III pressure ulcer of left heel (HCC) (Primary Dx) Discharge Disposition: Home or Self Care 07/23/2025 Results Follow-Up [facility] Podiatry [place] [address] [facility] [address] [place] [phone] Cristi Pelletier DPM [facility] LOWER EXTREMITY ARTERIAL DUPLEX COMPLETE 07/20/2025 2:13 PM EDT - 07/20/2025 11:59 PM EDT Hospital Encounter [facility] VASCULAR [address] [place] [address] [address] [place] [phone] Cristi Pelletier, DPJeremi 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); Pressure ulcer of left heel, stage 4 (HCC) Discharge Disposition: Home or Self Care 07/16/2025 1:00 PM EDT - 07/16/2025 11:59 PM EDT Hospital Encounter [facility] [place] [address] [place] [place] [address] Cristi Pelletier DPM 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) (Primary Dx); Pressure ulcer of left heel, stage 4 (HCC) Discharge Disposition: Home or Self Care 06/25/2025 2:34 PM EDT - 06/25/2025 11:59 PM EDT Hospital Encounter [facility] Wound Care [place] [address] [place] [place] [address] Cristi Pelletier DPM Pressure ulcer of left heel, stage 4 (HCC) (Primary Dx) Discharge Disposition: Home or Self Care 06/11/2025 2:45 PM EDT - 06/11/2025 11:59 PM EDT Hospital Encounter [facility] [place] [address] [place] [place] [address] Cristi Pelletier DPJeremi Pressure ulcer of left heel, stage 4 (HCC) (Primary Dx); 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) Discharge Disposition: Home or Self Care 06/04/2025 2:01 PM EDT - 06/04/2025 11:59 PM EDT Hospital Encounter [facility] [place] [address] [place] [place] [address] Enzweiler, Cristi G, DPM Pressure ulcer of left heel, stage [...] IR REVAS FEM POP ART UNILAT W HOTEL ADMINISTRATIVE ASSISTANT 03/13/2022 IR REVAS FEM POP ART UNILAT W HOTEL ADMINISTRATIVE ASSISTANT 03/13/2022 Kashif Wong MD EDG IR COLONOSCOPY HAMMER TOE SURGERY 06/15/2022 Foot/Ankle/Left Left foot Correction of hammer toe deformity with arthroplasty second and third toe. Left foot Application of skin graft substitute.; Surgeon: Jabari Hill DPM; Location: [facility] MAIN OR; Service: Podiatry Medical devices from this surgery are in the Medical Devices section. SKIN GRAFT 06/15/2022 Left Surgeon: Jabari Hill DPM; Location: [facility] MAIN OR; Service: Podiatry Medical devices [...] IR REVAS FEM POP ART UNILAT W HOTEL ADMINISTRATIVE ASSISTANT 06/02/2023 IR REVAS FEM POP ART UNILAT W HOTEL ADMINISTRATIVE ASSISTANT 06/02/2023 Vishnu Penn MD EDG IR [...] IR REVAS FEM POP ART UNILAT W HOTEL ADMINISTRATIVE ASSISTANT 12/28/2024 IR REVAS FEM POP ART UNILAT W HOTEL ADMINISTRATIVE ASSISTANT 12/28/2024 Vishnu Penn MD EDG IR [...] 25% COPD (chronic obstructive pu lmonary disease) ([facility]) HLD (hyperlipidemia) Hypertension Emphysema, unspecified (HCC) CAD (coronary artery disease) STEMI (ST elevation myocardi al infarction) ([facility]) STEMI with 3 NORI to RCA Cardiac pacemaker SJM Dual PPM - Dr. Cleaning History of cardiac cath 03/23/[address] aced in Right leg 03/23/2017 HI (myocardial infarction) ([facility]) 06/2016 Depression with anxiety Essential hypertension Chronic systolic heart failure (HCC) Sinus node dysfunction ([facility]) 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 [...] = 0.6 oz pur e alcohol) [facility] Utilities Answer Date Recorded In the [...] Date Recorded PHQ-2 Total Score 0 12/28/2024 [facility] [place] of Occupat ional Health - Occupational Stress [...] money to buy more. Never true 12/29/19 Within the past 12 months, t he [...] needed for daily living? No 05/29/2023 [facility] IP Transportation Answer D ate Recorded [...] F) 08/21/2025 2:20 PM EST Respiratory Rate 18 08/13/2025 12:49 PM EST Oxygen Saturation 96% 01/01/2025 2:00 PM EDT Inhaled Oxygen Concentration - - Weight 70.3 kg (155 lb) 08/21/2025 2:20 PM EST Height 162.6 cm (5' 4 ) 08/21/2025 2:20 PM EST Body Mass Index 26.61 08/21/2025 2:20 PM EST Plan of Treatment Upcoming Encounters Date Type Department Care Team (Late st Contact Info) Description 09/03/2025 1:15 PM EST Appointment [facility] [place] [address] [place] [address] Cristi Pelletier, DPM [address] [facility] [address] [place] [address] 09/12/2025 10:00 AM EST Appointment EDG IR One [facility] [place], [place] [phone] Vishnu Penn MD [address] [address] [place] [address] 11/12/2025 1:30 PM EST Appointment [facility] VASC[facility] [address] [facility] [address] [address] [place] [address] January, Nette Rand ACCESS SERVICE REPRESENTATIVE [address] [facility] [place], [place] [phone] 11/12/2025 2:40 PM EST Office Visit [facility] [address] [facility] [address] [place] [address] JanuaryNette ACCESS SERVICE REPRESENTATIVE [address] [place] [address] [address] [place] [address] Health Maintenance Due Date Last [...] tibial pulses. Medical Devices Implanted Type Area Human Resource Assistant Device Identifier Shelf Expiration Date Model / Serial / Lot Defib Graft Tissue Myriad Thin 5 X 5cm - [id number] Implanted:Qty: 1 on 06/15/2022 by Jabari Hill DPM at [facility] Left: Foot [employer]OA [employer] 07/27/2022 [id number] US / / [id number] Wire Denise 0.677uoz7.5in [employer] [facility] [place] Pnt - [id number] Implanted:Qty: 2 on 06/15/2022 by Jabari Hill DPM at [facility] Left: Foot MICROAIRE SURG INSTR 11/22/2025 [id number] / / [id number] Stent Enpros 8mm 7fr Intro 38mm 80cm Icast Trachbr Be Cvr-11/04/2022 Implanted:Qty: 1 on 11/04/2022 by Vishnu Penn MD Left: Iliac Artery GETINGE INDUSTIER:GETINGE [facility] 35629 / / [id number] Graft Tissue Myriad Thin 5 X 5cm - [id number] Implanted:Qty: 1 on 12/23/2022 by Jabari Hill, DPM at [facility] Left: Foot AROA [employer]OSURGERY 02/24/2025 [id number] US / / [id number] Graft Ovine Tissue 500mg Ebatriz Sheltoncells - [id number] Implanted:Qty: 1 on 12/23/2022 by Jabari Hill, DPM at [facility] Left: Foot [employer]OA [employer]OSUR[employer] 07/27/2023 [id number] / / [id number] Graft Tissue Myriad Thin 5 X 5cm - [id number] Implanted:Qty: 1 on 02/10/2023 by Jabari Hill, DPM at [facility] Left: Heel AROA BIOSURGERY 03/26/2025 [id number] US / / [id number] Graft Tissue Myriad Thin 5 X 5cm - [id number] Implanted:Qty: 1 on 05/19/2023 by Jabari Hill, DPM at [facility] Left: Foot AROA BIOSURGERY 03/26/2025 [id number] US / / [id number] Graft Tissue Myriad Thin 5 X 5cm - [id number] Implanted:Qty: 1 on 06/06/2023 by Jabari Hill, DPM at [facility] Left: Heel AROA BIOSURGERY 02/24/2025 [id number] US / / [id number] Procedures Procedure Name Priority Date/Time Associated Diagnosis Comments [facility] US LOWER EXTREMITY ARTERIAL DUPLEX COMPLETE [place] 07/20/2025 3:40 PM EDT 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) Pressure ulcer of left heel, stage 4 (HCC) from Last 3 Months Results * [facility] LOWER EXTREMITY ARTERIAL DUPLEX COMPLETE (07/20/2025 [...] to the prior transmetatarsal amputation. Cristi Pelletier Jeremi IMG VASCULAR ORDERABLES Final Result from Last 3 Months Insurance [facility] [address] [employer] [facility] [place] [address] [facility] [place] [address] Advance Directives For more information, please contact: [phone] * Full Code (Latest Code Status on File) Date Activated Date Inactivated Comments 12/27/2024 10:43 PM 01/01/2025 9:14 PM * Full Code Date Activated Date Inactivated Comments 05/28/2023 10:35 AM 06/11/2023 9:55 PM Care Teams Refinery Operator Reforming Unit Relationship Specialty Start Date End Date William Hunter MD [address] [place] [phone] PCP - General Internal Medicine-Adolescent Medicine 05/28/23 González Gotti MD [address] [place] [address] [address] [place] [address] Consulting Physician Internal Medicine - Clinical Cardiac Electrophysiology 04/05/17 Cristi Cleaning MD [address] [place] [address] [place] [address] Physician Internal Medicine-Cardiovascular Disease 04/05/17
--- OUTSIDE RECORDS SUMMARY | 2025-08-30 13:38 | XMS_ITS | Patient Health Record ---
Author Organization [facility] Address [address] [place] [address] Care Team Providers Care Gem Cutter Name Role Phone William Hunter Primary Care Provider Sarah Wing Unavailable [phone] Migration, Provider Unavailable Unavailable Allergies Allergen (clinical drug ingredient) Drug/Non Drug Allergy documented on EMR Reaction Allergy Type Onset Date Status Substance with 2-vkzfbfe-8-methylg lutaryl-coenzyme A reductase inhibitor mechanism of action (substance) Statins couldnt walk Drug Allergy Active codeine Codeine Unknown Drug Allergy Active hydrocodone HYDROcodone itchy and nausea Drug Allergy Active Results Component Value Reference Range Notes LIPID PANEL, STANDARD (7600) Reviewed date:07/24/2025 02:27:51 PM Interpretation: Performing Lab:[facility], [facility] [facility] [place] Notes/Report: NON-FASTING; NON-FASTING COLLECTION REQUIREMENTS NOT MET. [...] LDL-C. Sumanth SS et al. JACK. 2013;310(19): 1702-0800 (http://[email or web address]/faq/YQD073) CHOL/HDLC RATIO 4.5 <5.0 (calc) NON HDL CHOLESTEROL 142 <130 mg/dL (calc) For patients with diabetes plus 1 major ASCVD risk factor, treating to a non-HDL-C goal of <100 mg/dL (LDL-C of <70 mg/dL) is considered a therapeutic option. ALDOSTERONE/PLASMA RENIN ACT IVITY RATIO,LC/MS/MS (23615) Reviewed date:07/30/2025 09:20:14 AM Interpretation: Performing Lab:LUCIO, [facility],[address] [facility] Caryn Campos MD,PhD,TANESHA Notes/Report: NON-FASTING ALDOSTERONE, LC/MS/MS 3 Adult Reference Ranges for Aldosterone: Upright 8:00-10:00 am < or = 28 ng/dL Upright 4:00-6:00 pm < or = 21 ng/dL Supine 8:00-10:00 am 3-16 ng/dL This test was developed and its analytical performance characteristics have been determined by [employer]. It has not been cleared or approved by the FDA. This assay has been validated pursuant to the CLIA regulations and is used for clinical purposes. PLASMA RENIN ACTIVITY, LC/MS/MS 1.49 0.25-5.82 ng/mL/h EVE/PRA RATIO 2.0 0.9-28.9 Ratio TESTOSTERONE, TOTAL, MS (527 83) Reviewed date:07/26/2025 04:06:44 PM Interpretation: Performing Lab:Z3E, [id number] [address], [place] Catarina Perry MD,PhD Notes/Report: NON-FASTING TESTOSTERONE, TOTAL, MS 35 2-45 ng/dL For additional information, please refer to https://education.Jule Game.Carmudi/faq/TotalTestosteroneLC MSMS (This link is being provided for informational/educational purposes only.) (Note) This test was developed and its analytical performance characteristics have been determined by [facility]. It has not been cleared or approved by the FDA. This assay has been validated pursuant to the CLIA regulations and is used for clinical purposes. [facility] [address] [facility] [address] [facility] [address] Catarina Perry MD, PhD CT Scan : Adrenal with and w ithout Reviewed date:07/27/2025 10:05:29 AM Interpretation: Performing Lab: Notes/Report: M-Complete Blood Count Auto Diff Reviewed date:06/20/2025 [...] date:07/02/2025 03:22:15 PM Interpretation: Performing Lab: Notes/Report: M-BUN & Creatinine Reviewed date:07/23/2025 04:39:24 PM Interpretation: Performing Lab: Notes/Report: BUN 13 7-17 mg/dl CREATT 0.90 0.52-1.04 mg/dl GFRAA 77 >60 ML/MIN EGFR 64 >60 ml/min M-Hemoglobin A1C Reviewed date:06/20/2025 04:54:54 PM Interpretation: [...] W/U Status Risk Notes Problem Mixed hyperlipidemia (682018950) Mixed hyperlipidemia (E78.2) Active confirmed Problem Primary insomnia (4034389) Primary insomnia (F51.01) Active confirmed Problem Insomnia (416776462) Insomnia due to medical condition (G47.01) Active confirmed Problem Essential hypertension (59898132) Essential (primary) hypertension (I10) Active confirmed Problem Ventricular tachycardia (29156357) Ventricular tachycardia (I47.2) Active confirmed Problem Paroxysmal atrial fibrillation (702085496) Paroxysmal atrial fibrillation (I48.0) Active confirmed Problem Ventricular fibrillation (73818770) Ventricular fibrillation (I49.01) Active confirmed Problem Stricture of artery (80643660) Stricture of artery (I77.1) Active confirmed Problem Chronic ulcer of skin (37728637) Non-pressure chronic ulcer of skin of other sites with unspecified severity (L98.499) Active confirmed Problem Long-term current use of anticoagulant (326824523) group home (current) use of anticoagulants (Z79.01) Active confirmed Problem Mixed anxiety and depressive disorder (685762944) Depression with anxiety (F41.8) Active confirmed Problem Neuropathy (496357571) Neuropathy (G62.9) Active confirmed Problem Essential hypertension (25210892) Essential hypertension (I10) Active confirmed Problem Hyperlipidaemia (41238939) Hyperlipemia (E78.5) Active confirmed Problem Atrial fibrillation (68636688) Atrial fibrillation (I48.91) Active confirmed Problem Gastroesophageal reflux disease without esophagitis (934016409) Gastroesophageal reflux disease without esophagitis (K21.9) Active confirmed Problem Atherosclerotic heart disease of apache coronary artery without angina pectoris (695787919078569) Coronary artery disease involving apache coronary artery of apache heart without angina pectoris (I25.10) Active confirmed Problem COPD - Chronic obstructive pulmonary disease (78616711) Chronic obstructive pulmonary disease, unspecified COPD type (J44.9) Active confirmed Problem Chronic systolic heart failure (154561359) Chronic systolic heart failure (I50.22) Active confirmed Problem Chronic bronchiolitis (439423371) Chronic bronchiolitis (J44.9) Active confirmed Problem Peripheral arterial disease (678463021) Peripheral arterial disease (I73.9) Active confirmed Problem Kidney stone (73832761) Kidney stone (N20.0) Active confirmed Problem Generalized anxiety disorder (28073823) TRISH (generalized anxiety disorder) (F41.1) Active confirmed Problem Insomnia (900417249) Insomnia, unspecified type (G47.00) Active confirmed Problem Ventricular tachyarrhythmia (4870400) Ventricular tachyarrhythmia (I47.2) Active confirmed Problem Cardiac pacemaker in situ (356943922) History of pacemaker (Z95.0) Active confirmed Problem Atherosclerosis of coronary artery (719716742) Atherosclerosis of apache coronary artery of apache heart with other form of angina pectoris (I25.118) Active confirmed Problem Automatic implantable cardiac defibrillator in situ (004716003) Presence of automatic implantable cardioverter-defib rillator (Z95.810) Active confirmed Problem Mass of right adrenal gland (finding) (10318896312657468) Adrenal mass, right (E27.9) Active confirmed Problem Seasonal allergic rhinitis (796559331) Seasonal allergic rhinitis, unspecified allergic rhinitis trigger (J30.2) Active confirmed Problem Old myocardial infarction (3038202) History of ST elevation myocardial infarction (STEMI) (I25.2) Active confirmed Problem Automatic implantable cardiac defibrillator in situ (895929488) Presence of combination internal cardiac defibrillator (ICD) and pacemaker (Z95.810) Active confirmed Problem Arterial leg ulc er (L97.909) Active confirmed Problem Chronic obstructive pulmonary disease (67318558) Advanced COPD (J44.9) Active confirmed Problem Betaxolol allergy (045424326) Betaxolol allergy (Z88.8) Active confirmed Problem Adrenal mass (506746936) Adrenal mass (E27.8) Active confirmed Problem Hypertensive heart failure (97766599) Unspecified hypertensive heart disease with heart failure (I11.0) Active confirmed Vital Signs Heart Rate 92 /min 07/10/2025 Temperature 97.6 degrees Fahrenheit 07/10/2025 Blood pressure diastolic 82 mm Hg 07/10/2025 Height 64 in 07/10/2025 Blood pressure systolic 134 mm Hg 07/10/2025 Weight 154.8 lbs 07/10/2025 BMI 26.57 kg/m2 07/10/2025 Encounters Encounter Location Date Provider Diagnosis [facility] [address] [facility] [address] [place], [place] [address] 12/30/2024 Provider Migration [facility] [address] [facility] [address] [place], [place] [address] 07/23/2025 Sarah Wing [facility] [address] [facility] [address] [place] [address] 02/27/2025 Sarah Wing Routine medical exam Z00.00 ; Coronary artery disease involving apache coronary artery of apache heart without angina pectoris I25.10 ; Gastroesophageal reflux disease without esophagitis K21.9 ; Chronic systolic heart failure I50.22 ; Peripheral arterial disease I73.9 ; Paroxysmal atrial fibrillation I48.0 ; Hyperlipemia E78.5 ; group home (current) use of anticoagulants Z79.01 ; Essential hypertension I10 ; Encounter for screening for malignant neoplasm of colon Z12.11 ; Visit for screening mammogram Z12.31 and BMI 26.0-26.9,adult Z68.26 [facility] [address] [facility] [address] [place], [place] [address] 06/19/2025 Sarah Wing Routine medical exam Z00.00 ; Coronary artery disease involving apache coronary artery of apache heart without angina pectoris I25.10 ; Gastroesophageal reflux disease without esophagitis K21.9 ; Chronic systolic heart failure I50.22 ; Peripheral arterial disease I73.9 ; Paroxysmal atrial fibrillation I48.0 ; Hyperlipemia E78.5 ; Essential hypertension I10 ; History of tobacco use Z87.891 ; Medically noncompliant Z91.199 ; Encounter for immunization Z23 and Visit for screening mammogram Z12.31 [facility] [address] [facility] [address] [place], [place] [address] 07/10/2025 Sarah Wing Primary insomnia F51 .01 ; Adrenal mass E27.8 and Mixed hyperlipidemia E78.2 [facility] [address] [address] 10/02/2024 William Hunter [facility] [address] [address] 01/29/2025 Sarah McNees [facility] [address] [place] [address] 02/27/2025 Sarah McNees [facility] [place] [address] [place], [place] [address] 03/05/2025 Williamsharda Hunter [facility] [address] [place] [address] 03/21/2025 Sarah McNees Abnormal mammogram R 92.8 [facility] [address] [place] [address] 06/19/2025 Sarah McNees [facility] [address] [place] [address] 06/20/2025 Sarah McNees Hyperglycemia R73.9 [facility] [address] [place] [address] 06/29/2025 William Hunter Abnormal ultrasound of breast R92.8 and Abnormal mammogram R92.8 Assessments Encounter Date Diagnosis (ICD Code) Assessment Notes Treatment Notes Treatment Clinical Notes Section Notes 02/27/2025 Routine medical exam (ICD-10 - Z00.00) Needs mammogram and cologuard, will arrange again 02/27/2025 Coronary artery disease involving apache coronary artery of apache heart without angina pectoris (ICD-10 - I25.10) [...] shot given 06/19/2025 Coronary artery disease involving apache coronary artery of apache heart without angina pectoris (ICD-10 - I25.10) No acute angina. Keep FU with cardiology 06/20/2025 Hyperglycemia (ICD-10 - R73.9) 06/29/2025 Abnormal ultrasound of breast (ICD-10 - R92.8) 07/10/2025 Primary insomnia (ICD-10 - F51.01) Restart hydroxyzine PRN for sleep MOA and SE profile discussed 07/10/2025 Adrenal mass (ICD-10 - E27.8) CT chest with incidental adrenal masses bilaterally, likely adenomas but not completed imaged, will obtain additional images and labs to further evaluate 06/19/2025 Gastroesophageal reflux disease without esophagitis (ICD-10 - K21.9) Well controlled on PPI, continue therapy. 07/10/2025 Mixed hyperlipidemia (ICD-10 - E78.2) Repeat lipid panel with extended fast 06/29/2025 Abnormal mammogram (ICD-10 - R92.8) 02/27/2025 Gastroesophageal reflux disease without esophagitis (ICD-10 - K21.9) well controlled on PPI 06/19/2025 Chronic systolic heart failure (ICD-10 - [...] well. 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 06/19/2025 History of tobacco use (ICD-10 - Z87.891) Pt reports smoking cessation status at this time. Pt was encouraged to continue. Need CT lung cancer screening, will arrange 02/27/2025 Essential hypertension (ICD-10 - I10) Blood [...] Order Date Ultrasound : Breast, Left 03/21/2025 Ultrasound : Breast, Left 06/29/2025 X ray : Shoulder, Left 09/14/2006 X [...] M-Hemoglobin A1C 06/20/2025 LIPID PANEL, STANDARD (7600) 10/19/2023 LIPID PANEL, STANDARD (7600) 02/27/2025 COMPREHENSIVE METABOLIC PANEL (43890) COMPREHENSIVE METABOLIC PANEL (07793) CBC (INCLUDES DIFF/PLT) (6399) 4 CBC (INCLUDES DIFF/PLT) (6399) 5 CORTISOL, A.M. (4212) 07/10/2025 TESTOSTERONE, TOTAL, MS (83117E2) 2024 Next Appt Details Provider Name:Sarah Mccormick, 11/06/2025 11:00:00 AM, [address], [place], [address], Insurance Providers Payer Name Payer Address Payer Phone Subscriber Number Group Number Insured Name Patient Relationship to Insured Coverage Start Date Coverage End Date [employer] [facility] [address] [address] [place] [address] [phone] [id number] Ashley Ding Self - patient is the [...] 04/2025 Hospitalization History Reason Date(Month/Year) [facility] [facility] [place] [facility]23 [facility]- defibrillator shock, foot infection 12/2021 chest pain 2007 [place] 06/2016
== END 2025-08-30 23:59 | disposition home or self-care (01) ==
LOC: RAD 13:34
PROVIDERS: PCP Nurse Practitioner Family; Visit Provider Internal Medicine Adolescent Medicine
DX: N63.22 Unspecified lump in the left breast, upper inner quadrant (principal); R92.8 Other abnormal and inconclusive findings on diagnostic imaging of breast
CPT/HCPCS: 76641